=== PATIENT | female | born 1935 | race Caucasian/White ===

== ENCOUNTER 2020-10-12 21:31 | Inpatient (IN) | payer MEDICARE, OTHER, SELFPAY ==
[2020-10-12] VITALS (13 sets, daily range): BP systolic 113–153; BP diastolic 70–99; PULSE 77–148; RESP 13–24; TEMP 36.2; O2SAT 98
--- NOTE | ~2020-10-12 | XR_ITS ---
EXAMINATION: XR chest 2V DATE: 10/12/2020 22:05 INDICATION: Shortness of breath. TECHNIQUE: Frontal and lateral views of the chest were obtained. COMPARISON: None. FINDINGS: There are small pleural effusions. There are airspace opacities at the lung bases. No pneum othorax. Cardiomegaly is noted. There is an age-indeterminate compression fracture of L2. There is an old healed right rib fracture. IMPRESSION: 1. Small pleural effusions. 2. Airspace opacities at the lung bases, consistent with atelectasis or less likely pneumonia. 3. Cardiomegaly. Reviewed, dictated and finalized at location A. IMPRESSION: 1. Small pleural effusions. 2. Airspace opacities at the lung bases, consistent with atelectasis or less li eunice pneumonia. 3. Cardiomegaly.
--- NOTE | 2020-10-12 21:33 | ECG_ITS ---
Measurements Intervals [place] Rate: 135 P: MN: 0 QRS: -39 QRSD: 93 T: 152 QT: 308 QTc: 462 Interpretive Statements ATRIAL FIBRILLATION WITH RAPID VENTRICULAR RESPONSE LEFT AXIS DEVIATION DELAYED PRECORDIAL R/S TRANSITION MINIMAL Q WAVES- HIGH LATERAL LEADS BORDERLINE ST-T WAVE ABNORMALITY- HIGH LATERAL LEADS ABNORMAL ECG Electronically Signed On 10-13-2020 6:21:36 CDT by Jah Delacruz D.O.
[2020-10-12 21:53] LABS: Basophils Percent Auto 0.4 % (0.2-1.2); Eosinophils Absolute Auto 0.1 K/mm3 (0-0.3); Hematocrit 39.8 % (37.0-47.0); Hemoglobin 12.6 g/dL (12.0-15.0); Immature Granulocyte Absolute 0.03 K/mm3 (0.00-0.031); Immature Granulocyte Percent A 0.6 % (0-0.5); Immature Platelet Fraction Pct 10.7 % (0.9-11.2); Lymphocytes Absolute Auto 1.14 K/mm3 (0.9-3.2); Lymphocytes Percent Auto 21.2 % (18.3-44.2); Mean Corpuscular HGB Conc 31.7 g/dl (32-36); Mean Corpuscular Hemoglobin 29.3 pg (26-34); Mean Corpuscular Volume 92.6 fl (80-100); Mean Platelet Volume 13.6 fl (7.4-10.4); Monocytes Absolute Auto 0.5 K/mm3 (0.1-0.6); Monocytes Percent Auto 8.3 % (2.6-8.5); Neutrophils Absolute Auto 3.6 K/mm3 (1.3-6.7); Neutrophils Percent Auto 67.5 % (45.5-73.1); Platelet Count Result 101 k/mm3 (150-375); Red Cell Distribution Width 15.9 % (11.5-14.5); White Blood Count 5.4 K/mm3 (4.5-10.0)
[2020-10-12 22:01] LABS: Anion Gap 9 mmol/L (8-16); Blood Urea Nitrogen 24 mg/dL (7-17); Calcium 9.1 mg/dL (8.4-10.2); Carbon Dioxide 20 mmol/L (22-30); Chloride 110 mmol/L (98-107); Estimated CRCL calculation 33 ml/min; Estimated Glomerular Filt Rate 60; Glucose 86 mg/dL (65-105); Potassium 4.5 mmol/L (3.4-5.0); Sodium 139 mmol/L (137-145)
[2020-10-12 22:10] LABS: NT Pro B Type Natriuretic Pept 7360 pg/mL (5-100)
[2020-10-12] MEDS: dilTIAZem HCl INJ 25 MG/5 ML VIAL 10 MG IV PUSH (22:18)
[2020-10-12] MEDS: FUROSEMIDE INJ 40 MG/4 ML VIAL IV PUSH (22:40)
--- NOTE | 2020-10-12 22:47 | ED.GENADULT ---
HPI - General Adult General Chief complaint: Shortness of Breath/Dyspnea Stated complaint: sob, leg swelling, edema in feet x couple months Time Seen by Provider: 10/12/20 21:57 Source: patient and family Mode of arrival: wheelchair Limitations: no limitations History of Present Illness HPI narrative: 85-year-old with a history of hypothyroidism, bilateral leg pain more so on the right here with a complaint of not feeling well for past 2 months. Patient states that she did not want to bother her family however her daughter was doing her hair this evening noticed to have some difficulty in breathing and leg swelling. Patient states that her past few weeks she has been short of breath unable to lay down flat. She denied any chest pain. No history of fever or chills. She states that she is scheduled to see Dr. Tan in October. Onset (ago): month(s) (2) Related Data Allergies Allergy/AdvReac Type Severity Reaction Status Date / Time No Known Allergies Allergy Verified 10/12/20 22:14 Review of Systems Review of Systems: All systems reviewed & are unremarkable except as noted in HPI and below Constitutional: Constitutional: Reports no additional constitutional complaints Eyes: Eyes: Reports no additional eye complaints ENT: Reports system reviewed and no additional complaints, except as documented Cardiovascular: Cardiovascular: Reports as per HPI Respiratory: Respiratory: Reports as per HPI Gastrointestinal: Gastrointestinal: Reports no additional gastrointestinal complaints Musculoskeletal: Musculoskeletal: Reports no additional musculoskeletal complaints Integumentary/Breasts: Skin/Breast: Reports system reviewed and no additional complaints, except as docu Neurologic: Reports system reviewed and no additional complaints, except as documented Psychiatric: Psychiatric: Reports no additional psychiatric complaints Exam Narrative: Exam Narrative: GENERAL: Well-appearing,thin , and in no acute distress. HEAD: Normocephalic, atraumatic. EYES: PERRLA and EOMI. NECK: Supple. CHEST: Normal respiratory effort, basilar Rales HEART: Irregularly irregular and tachycardic. ABDOMEN: Soft, nontender, nondistended, normal active bowel sounds. EXTREMITIES: Normal range of motion. 2+ edema bilaterally. SKIN: Warm, dry, no rash. NEURO: No focal deficits. Alert and oriented x3. PSYCH: Normal mood and affect. Course Course Emergency Course: Patient upon arrival was in A. fib with RVR have given 10 of Cardizem which brought her heart rate from 140s to 80s and 90s, she bounced back to 10 7-1 15 I started her on a drip I also have given 40 of IV Lasix. Discussed labs with the patient and the family. Also discussed with the hospitalist who agreed. The patient. Vital Signs Vital signs: Vital Signs Temperature 36.2 C L 10/12/20 21:35 Pulse Rate 148 H 10/12/20 21:35 Respiratory Rate 16 10/12/20 21:35 Blood Pressure 153/99 H 10/12/20 21:35 Pulse Oximetry 98 10/12/20 21:35 Temperature 36.2 C L 10/12/20 21:35 Pulse Rate 84 10/12/20 22:36 Respiratory Rate 13 10/12/20 22:15 Blood Pressure 114/70 10/12/20 22:36 Pulse Oximetry 98 10/12/20 21:35 Medical Decision Making Vital Signs Vital Signs: Vital Signs Temperature 36.2 C L 10/12/20 21:35 Pulse Rate 148 H 10/12/20 21:35 Respiratory Rate 16 10/12/20 21:35 Blood Pressure 153/99 H 10/12/20 21:35 Pulse Oximetry 98 10/12/20 21:35 Temperature 36.2 C L 10/12/20 21:35 Pulse Rate 84 10/12/20 22:36 Respiratory Rate 13 10/12/20 22:15 Blood Pressure 114/70 10/12/20 22:36 Pulse Oximetry 98 10/12/20 21:35 Lab Data Result diagrams: 10/12/20 21:44 10/12/20 21:44 Labs: Lab Results 10/12/20 10/12/20 10/12/20 Range/Units 21:44 21:44 21:44 WBC 5.4 (4.5-10.0) K/mm3 RBC 4.30 (4.2-5.4) M/mm3 Hgb 12.6 (12.0-15.0) g/dL Hct 39.8 (37.0-47.0) % MCV 92.6 (80-100) fl MCH 29
[2020-10-13] VITALS (18 sets, daily range): BP systolic 90–145; BP diastolic 57–90; PULSE 54–132; RESP 12–24; TEMP 35.8–36.9; O2SAT 94–100; BMI 18.8
--- NOTE | 2020-10-13 | ECHO_ITS ---
Patient Info Name: Renata Brown Age: 85 years : 1935 Gender: Female Ht: 65 in Wt: 114 lbs BSA: 1.53 m2 HR: 87 bpm BP: 128 / 7 mmHg Heart Rhythm: Atrial Fibrillation Technical Quality: Good Exam Date: 10/13/2020 10:21 AM Exam Location: [facility] Room: [place] Patient Status: Inpatient Admit Date: 10/12/2020 Staff Ordering Physician: Jose Up MD Laser Beam Trim Operator: Charlotte Carias RDCS Attending Provider: Cedrick Farrell MD Exam Type: CA echo doppler color flow Study Info Indications - new afib chf Complete two-dimensional, color flow and Doppler transthoracic echocardiogram is performed. Summary 1. Complete two-dimensional, color flow and Doppler transthoracic echocardiogram is performed. 2. Left ventricular chamber dimension is moderately enlarged. 3. Left ventricular systolic function is severely reduced, estimated at 20-25%. 4. Marked biatrial dilation. 5. Mild mitral tricuspid and aortic valve regurgitation. 6. Atrial fibrillation. Left Ventricle Left ventricular chamber dimension is moderately enlarged. Left ventricular systolic function is severely reduced, estimated at 20-25%. The left ventricular diastolic function is indeterminate. Right Ventricle Right ventricular chamber dimension is mildly enlarged. Left Atria Left atrial chamber dimension is severely enlarged. Right Atria Right atrial chamber dimension is moderately enlarged. Aortic Valve The aortic valve is trileaflet. There is mild aortic valve sclerosis. There is trace aortic valve regurgitation. Pulmonic Valve The pulmonic valve is not well visualized. Mitral Valve The mitral valve has normal leaflets. There is mild mitral valve regurgitation. Tricuspid Valve The tricuspid valve leaflets are normal. There is mild tricuspid valve regurgitation. Pericardium/Pleural The pericardium appears normal. Aorta The aortic root size at the sinus of Valsalva is normal. Left Ventricular Outflow Tract Name Value Normal LVOT 2D LVOT Diameter 2.0 cm LVOT Doppler LVOT Peak Gradient 3 mmHg LVOT Mean Gradient 2 mmHg LVOT VTI 14 cm LVOT VTI/AV VTI Ratio 0.6 LVOT Stroke Volume 44 ml LVOT CO 11.5 l/min LVOT CI 7.5 l/min/m2 Pulmonic Valve Name Value Normal PV Doppler PV Peak Gradient 1 mmHg Mitral Valve Name Value Normal MV Doppler MV Decel [place]
[2020-10-13 00:01] LABS: Troponin I < 0.012 ng/mL (0.000-0.034)
[2020-10-13 00:26] LABS: Thyroid Stimulating Hormone Reflex 0.069 uIU/mL (0.465-4.68)
--- NOTE | 2020-10-13 00:46 | ADMGEN ---
This patient, Renata Brown, was admitted to IMU Room 205-01. Patient/family oriented to hospital policies and general routines including ID bracelet, bed and alarms, visiting hours, pain management, procedures, bathroom and other care routines, personal items, smoking policy, room service/diet, and visiting hours. Information on how to activate the Rapid Response Team has been discussed. Patient/Family are encouraged to report perceived risks to care and to ask questions if they do not understand what they are told or what they should do.
[2020-10-13 00:54] LABS: Free T4 Free Thyroxine Reflex 1.73 ng/dL (0.78-2.19)
[2020-10-13] MEDS: ENOXAPARIN 60 MG/0.6 ML SYRINGE 50 MG SUB-Q (00:57)
[2020-10-13 01:45] LABS: Total Triiodothyronine (T3) 0.97 NG/ML (0.97-1.69)
[2020-10-13] MEDS: ACETAMINOPHEN 325 MG TABLET 650 MG PO ×2 (02:28→08:10)
--- NOTE | 2020-10-13 02:42 | PM.IMHP ---
H&P: HPI History of Present Illness Date/Time: 10/13/20 02:42 Chief Complaint: Shortness of breath Narrative: This is an 85-year-old female with past medical history significant for hypothyroidism, dyslipidemia. Patient was brought to the emergency room due to concerns of her daughter after she noticed that her mother has bilateral lower extremity edema and shortness of breath while she was visiting with her. Patient states that she has not been feeling well for the last 2 months or so she has been having palpitation, shortness of breath, chest pain in the retrosternal area feels like a weight on my chest type of feeling, she noticed worsening of shortness of breath with activity but now also present at rest could not lay flat in the bed and has been sleeping in her 's recliner for the last several days. She has have some dry cough nonproductive of sputum is states that it feels chest congestion, no dizziness no lightheadedness no fevers no rigors no chills no nausea no vomiting no abdominal pain no diarrhea no claudication. Preliminary workup was significant for abnormal heart rate AFib with RVR and an elevated BNP. Chest x-ray significant for bilateral pleural effusion. Patient was given IV push diltiazem in the emergency room which brought her heart rate down and was given Lasix which improved her shortness of breath patient has been admitted to the telemetry unit. Review of Systems Review of Systems: Narrative: Palpitations shortness worsening shortness of breath and bilateral lower extremity edema Constitutional: Constitutional: Denies chills, Reports fatigue, Denies fever(s), Reports lethargy and Denies weakness Eyes: Eyes: Denies change in vision ENT: Denies nasal congestion, Denies nasal discharge and Denies nasal obstruction Cardiovascular: Cardiovascular: Reports chest pain, Reports chest pain at rest, Reports rapid heart rate, Reports pedal edema, Reports leg edema, Denies radiating jaw, neck or arm pain, Reports palpitations, Reports dyspnea, Reports dyspnea on exertion and Reports orthopnea Respiratory: Respiratory: Reports cough and Denies wheezing Gastrointestinal: Gastrointestinal: Denies change in bowel habits, Denies dysphagia, Denies dyspepsia, Denies diarrhea, Denies nausea and Denies vomiting Genitourinary: Genitourinary: Denies dysuria Musculoskeletal: Musculoskeletal: Denies limited range of motion, Denies muscle cramps and Denies muscle weakness Integumentary/Breasts: Skin/Breast: Denies rash Neurologic: Denies focal weakness, Denies Sensory deficit (Neuro) and Denies weakness Psychiatric: Psychiatric: Reports no additional psychiatric complaints Endocrine: Endocrine: Reports no additional endocrine complaints Hematologic/Lymphatic: Hematologic/Lymphatic: Reports no additional hematologic/lymphatic complaints Allergic/Immunologic: Allergic/Immunologic: Reports no additional allergic/immunologic complaints PMFSH Social History Social History Smoking status: Never smoker Alcohol intake: never Substance use: never Substance use type: does not use Spiritual care concerns: No Meds Home Medications and Allergies Home Medications Medication Instructions Recorded Confirmed Type levothyroxine 75 mcg PO DAILY 10/13/20 10/13/20 History simvastatin 20 mg PO DAILY 10/13/20 10/13/20 History trazodone 50 mg PO QPM PRN 10/13/20 10/13/20 History Allergies Allergy/AdvReac Type Severity Reaction Status Date / Time No Known Allergies Allergy Verified 10/12/20 22:14 Vital Signs Vital Signs - 24 hr 10/12/20 21:35 10/12/20 21:45 10/12/20 22:12 Temperature 97.2 F L Pulse Rate 148 H 144 H 125 H Respiratory Rate 16 24 H Blood Pressure 153/99 H Pulse Oximetry 98 10/12/20 22:15 10/12/20 22:25 10/12/20 22:30 Temperature Pulse Rate 143 H 95 82 Respiratory Rate 13 18 Blood Pressure Pulse Oximetry 10/12
[2020-10-13 03:32] LABS: Troponin I < 0.012 ng/mL (0.000-0.034)
[2020-10-13 05:28] LABS: Anion Gap 11 mmol/L (8-16); Blood Urea Nitrogen 22 mg/dL (7-17); Carbon Dioxide 26 mmol/L (22-30); Chloride 105 mmol/L (98-107); Estimated CRCL calculation 33 ml/min; Estimated Glomerular Filt Rate 60; Glucose 87 mg/dL (65-105); Potassium 4.2 mmol/L (3.4-5.0); Sodium 142 mmol/L (137-145)
[2020-10-13 05:38] LABS: Troponin I < 0.012 ng/mL (0.000-0.034)
[2020-10-13] MEDS: LEVOTHYROXINE SODIUM 75 MCG TABLET PO (05:49)
[2020-10-13 06:03] LABS: Add Urine Microscopic? YES; Appearance Urine Clear (Clear); Bilirubin Urine Negative (Negative); Blood Urine 1+ (Negative); Color Urine Colorless (Yellow); Glucose Urine UA Negative (Negative); Ketones Urine Negative (Negative); Leukocyte Esterase Ur Negative LEU/UL (Negative); Mucus Urine Rare /lpf; Nitrate Urine Negative (Negative); Protein Urine Negative (Negative); RBC Urine 0-2 /hpf (0-2); Specific Grav Ur 1.006 (1.001-1.035); Urobilinogen Urine Negative mg/dL (<2.0); WBC Urine 0-3 /hpf
[2020-10-13] MEDS: FUROSEMIDE INJ 40 MG/4 ML VIAL IV PUSH (08:09)
--- NOTE | 2020-10-13 09:28 | PM.CNCAR ---
Assessment and Plan Additional Plan 1-AFib with RVR, and new onset 2-acute heart failure exacerbation, unspecified 3-history of hypothyroidism however appears to be overtreated 4-hyperlipidemia -patient presents with bilateral lower extremity edema and was found to be in AFib with RVR. Currently receiving diltiazem 5 mg IV. -recommend to start metoprolol 25 mg q.6 hours and stop the IV diltiazem. -discontinue Lovenox and start Eliquis 2.5 mg b.i.d. -follow-up on echocardiogram. -discontinue IV Lasix because she is having severe cramps in her lower extremities and start Bumex 1 mg IV b.i.d. -hold the levothyroxine for now because TSH is low and suggestive that the 75 mcg of levothyroxine may be is excessive for this patient. History of Present Illness History of Present Illness Consult date/time: 10/13/20 09:28 Requesting physician: Jose Up MD Consult reason: atrial fibrillation Reason For Visit: New onset, A. fib with RVR, CHF Narrative: This is a 85-year-old female with past medical history of hyperlipidemia, hypothyroidism who presents to the hospital chiefly complaining of bilateral lower extremity edema for a couple weeks. Denies chest pain. She states that she has some dyspnea on exertion. Denies dizziness or syncope. She states that she has long history of unsteady gait. Denies fever or chills or cough. Does not smoke. Drinks on rare occasion. Serum creatinine 0.9, BUN 24, brain atretic peptide 3800, TSH low at 0.06, hemoglobin 12, normal white cell count. Chest x-ray revealed analyzed herself shows small pleural effusions, possible right infiltrate. EKG reviewed and analyzed by myself shows AFib with RVR, left axis deviation. Review of Systems Constitutional: Constitutional: Denies chills, Denies fever(s) and Denies poor appetite Eyes: Eyes: Denies eye discharge, Denies loss of vision, Denies eye pain and Denies photophobia ENT: Denies dizziness, Denies epistaxis, Denies nasal congestion and Denies sore throat Cardiovascular: Cardiovascular: Denies chest pain, Denies syncope, Reports pedal edema, Reports leg edema, Denies palpitations, Denies dyspnea, Reports dyspnea on exertion and Denies orthopnea Respiratory: Respiratory: Denies cough, Denies dyspnea, Denies dyspnea on exertion and Denies wheezing Gastrointestinal: Gastrointestinal: Denies abdominal pain, Denies diarrhea, Denies nausea and Denies vomiting Genitourinary: Genitourinary: Denies hematuria, Denies genital lesions and Denies dysuria Musculoskeletal: Musculoskeletal: Denies arthralgias, Denies joint swelling and Denies numbness Integumentary/Breasts: Skin/Breast: Denies pruritus and Denies rash Neurologic: Denies dizziness, Denies syncope, Denies loss of vision and Denies numbness Psychiatric: Psychiatric: Denies anxiety and Denies depression Endocrine: Endocrine: Denies cold intolerance, Denies heat intolerance and Denies palpitations Hematologic/Lymphatic: Hematologic/Lymphatic: Denies easy bleeding and Denies easy bruising Allergic/Immunologic: Allergic/Immunologic: Denies urticaria and Denies wheezing PMFSH Past Medical History Medical History (Updated 10/13/20 @ 09:41 by Jeannine Gutierrez MD) Hyperlipidemia Hypothyroidism Surgical History Surgical History (Updated 10/13/20 @ 09:42 by Jeannine Gutierrez MD) H/O hysterectomy for benign disease Social History Social History Smoking status: Never smoker Alcohol intake: never Substance use: never Substance use type: does not use Spiritual care concerns: No Meds Home Medications and Allergies Home Medications Medication Instructions Recorded Confirmed Type levothyroxine 75 mcg PO DAILY 10/13/20 10/13/20 History simvastatin 20 mg PO DAILY 10/13/20 10/13/20 History trazodone 50 mg PO QPM PRN 10/13/20 10/13/20 History Allergies Allergy/AdvReac Type Severity Reaction Status Date / Time No Known Aller
[2020-10-13] MEDS: METOPROLOL TARTRATE 25 MG TABLET PO ×2 (11:58→17:03)
--- NOTE | 2020-10-13 15:05 | PM.IMPN ---
Progress Note: A&P Assessment and Plan (1) Atrial fibrillation with rapid ventricular response: Code(s): I48.91 - Unspecified atrial fibrillation Status: Acute Assessment and Plan: Admit to telemetry unit Diltiazem drip Echocardiogram in a.m. Serial troponins Cardiology consult Chest x-ray reviewed Lab work reviewed Urinalysis pending 10/13/20 15:05 Patient is 85-year-old female was brought to the emergency department by her daughter is patient was short of breath and lower extremity edema upon arrival to emergency depart patient was in atrial fibrillation with RVR diltiazem drip was started in the rate is trending down, patient is seen by Cardiology DC the drip started the patient on metoprolol 25 mg every 6 hours will continue to monitor, ordered a coagulation patient started on Eliquis 2.5 mg b.i.d., patient with history of hypothyroid patient TSH is low suggesting over treatment however a free T4 and total T3 are normal. Patient also has congestive heart failure with BNP of 7360, patient was started on IV Lasix however developed severe crampy and not been stopped will follow-up on cardiac echo, will have a PT OT evaluate the patient, patient daughter is present in the room answered all her questions. (2) Acute congestive heart failure: Code(s): I50.9 - Heart failure, unspecified Status: Acute Assessment and Plan: Likely secondary to uncontrolled heart rate Strict I/O's Daily weight Lasix 40 mg IV b.i.d. Daily BMP Supportive care Heart healthy diet (3) Hypertension: Code(s): I10 - Essential (primary) hypertension Status: Acute Assessment and Plan: Continue home meds Continue to monitor Subjective Date/time seen: 10/13/20 15:05 Patient is 85-year-old female was brought to the emergency department by her daughter is patient was short of breath and lower extremity edema upon arrival to emergency depart patient was in atrial fibrillation with RVR diltiazem drip was started in the rate is trending down, patient is seen by Cardiology DC the drip started the patient on metoprolol 25 mg every 6 hours will continue to monitor, ordered a coagulation patient started on Eliquis 2.5 mg b.i.d., patient with history of hypothyroid patient TSH is low suggesting over treatment however a free T4 and total T3 are normal. Patient also has congestive heart failure with BNP of 7360, patient was started on IV Lasix however developed severe crampy and not been stopped will follow-up on cardiac echo, will have a PT OT evaluate the patient, patient daughter is present in the room answered all her questions. Review of Systems Review of Systems: All systems reviewed & are unremarkable except as noted in HPI and below Exam Narrative: Exam Narrative: Elderly frail Patient is comfortable, NAD HEENT: eyes are clear and none icteric LUNGS: Bilateral fair air entry with rales and rhonchi HEART: Irregularly irregular ABD: BS+, Soft and nontender Lower extremities: no edema SKIN: nonjaundiced Neuro: grossly intact. Objective Data Vital Signs Vital Signs: Vital Signs - 24 hr 10/12/20 21:35 10/12/20 21:45 10/12/20 22:12 Temperature 97.2 F L Pulse Rate 148 H 144 H 125 H Respiratory Rate 16 24 H Blood Pressure 153/99 H Pulse Oximetry 98 10/12/20 22:15 10/12/20 22:25 10/12/20 22:30 Temperature Pulse Rate 143 H 95 82 Respiratory Rate 13 18 Blood Pressure Pulse Oximetry 10/12/20 22:31 10/12/20 22:36 10/12/20 22:45 Temperature Pulse Rate 77 84 81 Respiratory Rate 21 H 14 Blood Pressure 114/70 114/70 Pulse Oximetry 10/12/20 22:46 10/12/20 23:00 10/12/20 23:02 Temperature Pulse Rate 82 92 87 Respiratory Rate 22 H 21 H 16 Blood Pressure 113/86 136/89 Pulse Oximetry 10/12/20 23:36 10/13/20 00:37 10/13/20 01:58 Temperature 97.0 F L Pulse Rate 95 99 99 Respiratory Rate 21 H 18 Blood Pressure 121/90 Pulse Oximetry 97 06/2
[2020-10-13] MEDS: BUMETANIDE INJ 1 MG/4 ML VIAL IV PUSH (17:06)
--- NOTE | 2020-10-13 20:51 | PC.NURSE ---
2044 reported a pain over the right lower extremity, quickly resolved and denies need for intervention at this time.
[2020-10-13] MEDS: traZODone HCL 50 MG TABLET PO (22:03)
[2020-10-13] MEDS: APIXABAN 2.5 MG TABLET PO (22:03)
[2020-10-14] VITALS (15 sets, daily range): BP systolic 94–119; BP diastolic 63–82; PULSE 66–122; RESP 12–18; TEMP 36.1–36.6; O2SAT 94–96
[2020-10-14] MEDS: METOPROLOL TARTRATE 25 MG TABLET PO ×2 (00:24→06:38)
[2020-10-14 05:29] LABS: Hemoglobin 11.9 g/dL (12.0-15.0); Immature Platelet Fraction Pct 11.9 % (0.9-11.2); Mean Corpuscular HGB Conc 31.3 g/dl (32-36); Mean Corpuscular Hemoglobin 28.5 pg (26-34); Mean Corpuscular Volume 90.9 fl (80-100); Mean Platelet Volume 13.7 fl (7.4-10.4); Platelet Count Result 90 k/mm3 (150-375); Red Blood Count 4.18 M/mm3 (4.2-5.4); Red Cell Distribution Width 15.8 % (11.5-14.5); White Blood Count 4.3 K/mm3 (4.5-10.0)
[2020-10-14 05:35] LABS: Anion Gap 8 mmol/L (8-16); Blood Urea Nitrogen 21 mg/dL (7-17); Calcium 8.1 mg/dL (8.4-10.2); Carbon Dioxide 24 mmol/L (22-30); Chloride 105 mmol/L (98-107); Estimated CRCL calculation 33 ml/min; Estimated Glomerular Filt Rate 60; Glucose 83 mg/dL (65-105); Potassium 3.1 mmol/L (3.4-5.0); Sodium 137 mmol/L (137-145)
[2020-10-14] MEDS: SIMVASTATIN 20 MG TABLET PO (09:58)
[2020-10-14] MEDS: APIXABAN 2.5 MG TABLET PO ×2 (09:58→19:57)
[2020-10-14] MEDS: BUMETANIDE INJ 1 MG/4 ML VIAL IV PUSH (09:58)
--- NOTE | 2020-10-14 12:47 | PM.PNCARD ---
Progress Note: A&P Additional Plan 85-year-old lady with: AFib with RVR suspect probably related to hyperthyroidism. She has responded well with good rate control with metoprolol. Will transition her to an equivalent dose of metoprolol succinate starting this afternoon. I will discontinue her Bumex she is euvolemic and this regimen will undoubtedly result in volume depletion. Will review her echocardiogram results later I do not see those on the record as of the time of this dictation. If he is doing well hemodynamically stable with good rate control discharged tomorrow is probably reasonable. Homar Greenwood MD [facility] Subjective Date/time seen: Date of service: 10/14/20 12:47 Interval history: Follow-up visit in this 85-year-old lady with: Atrial fibrillation of uncertain chronicity/duration. Presents to the hospital with RVR and has responded very well to metoprolol which she is receiving 25 mg q.6 hours. She is also now anticoagulated with apixaban. Etiology of the atrial fib is uncertain but suspected related to hyperthyroidism. TSH level upon admission suggests over replacement. Patient is asymptomatic and today feels well and has no complaints currently. Exam Const: General: comfortable and no acute distress Other: Pleasant thin elderly lady no distress HENMT: Mouth: Yes moist mucous membranes Eyes: Sclera: sclerae normal Pupils: Equal, round and reactive pupils present Neck: Neck: supple and no JVD Thyroid: thyroid normal Resp: Effort & Inspection: normal respiratory effort Auscultation: clear to auscultation bilaterally Cardio: Rhythm: abnormal rhythm irregularly irregular GI: GI Palp: Yes Soft to palpation Auscultation: normal bowel sounds Skin: General skin exam: normal color Neuro: Cognition (Neuro): normal cognition Extrem: General: normal to inspection Other: Normal perfusion no peripheral edema Objective Data Vital Signs Vital Signs: Vital Signs - 24 hr 10/13/20 13:16 10/13/20 13:57 10/13/20 16:00 Temperature 36.9 C Pulse Rate 99 68 64 Respiratory Rate 12 Blood Pressure 109/63 Pulse Oximetry 94 10/13/20 17:03 10/13/20 18:00 10/13/20 19:54 Temperature 36.4 C Pulse Rate 95 118 H 109 H Respiratory Rate 16 Blood Pressure 109/72 Pulse Oximetry 100 10/13/20 20:00 10/13/20 22:00 10/13/20 23:51 Temperature 35.8 C L Pulse Rate 92 67 67 Respiratory Rate 16 Blood Pressure 90/57 L Pulse Oximetry 99 10/14/20 00:00 10/14/20 00:24 10/14/20 02:00 Temperature Pulse Rate 71 74 66 Respiratory Rate Blood Pressure Pulse Oximetry 10/14/20 04:00 10/14/20 06:00 10/14/20 06:38 Temperature 36.1 C L Pulse Rate 72 120 H 80 Respiratory Rate 16 Blood Pressure 119/73 Pulse Oximetry 96 10/14/20 08:00 10/14/20 12:00 Temperature 36.6 C 36.6 C Pulse Rate 112 H 118 H Respiratory Rate 12 12 Blood Pressure 115/73 104/82 Pulse Oximetry 96 95 Intake/Output Intake/Output: Intake & Output 10/11/20 10/12/20 10/13/20 10/14/20 23:59 23:59 23:59 23:59 Intake Total 865 590 Output Total 3350 700 Balance -2485 -110 Meds/Results Medications: Active Medications Generic Name Dose Route Start Last Admin Trade Name Freq PRN Reason Stop Dose Admin Acetaminophen 650 mg 10/12/20 22:44 10/13/20 08:10 Acetaminophen 325 Mg Tablet PO 650 mg Q4H PRN Administration Mild Pain (1-3) or Fever Apixaban 2.5 mg 10/13/20 22:00 10/14/20 09:58 Apixaban 2.5 Mg Tablet PO 2.5 mg Q12HR SHARITA Administration Levothyroxine Sodium 75 mcg 10/13/20 06:30 10/13/20 05:49 Levothyroxine Sodium 75 Mcg Tablet PO 75 mcg DAILY@0630 SHARITA Administration Metoprolol Succinate 100 mg 10/14/20 15:00 Metoprolol Succinate Ext Rel 100 Mg Tabcr PO QAM [facility] Ondansetron HCl 4 mg 10/12/20 22:44 Ondansetron Inj 4 Mg/2 Ml Vial IV PUSH Q4H PRN Nausea Simvastatin 20 mg 10/13/20 09:00 10/14/20 09:58
[2020-10-14] MEDS: POTASSIUM CHLORIDE 20 MEQ TABLET 40 MEQ PO (12:58)
--- NOTE | 2020-10-14 15:16 | PM.IMPN ---
Progress Note: A&P Assessment and Plan (1) Atrial fibrillation with rapid ventricular response: Code(s): I48.91 - Unspecified atrial fibrillation Status: Acute Assessment and Plan: Admit to telemetry unit Diltiazem drip Echocardiogram in a.m. Serial troponins Cardiology consult Chest x-ray reviewed Lab work reviewed Urinalysis pending 10/14/20 15:16 10/13 Patient is 85-year-old female was brought to the emergency department by her daughter is patient was short of breath and lower extremity edema upon arrival to emergency depart patient was in atrial fibrillation with RVR diltiazem drip was started in the rate is trending down, patient is seen by Cardiology DC the drip started the patient on metoprolol 25 mg every 6 hours will continue to monitor, ordered a coagulation patient started on Eliquis 2.5 mg b.i.d., patient with history of hypothyroid patient TSH is low suggesting over treatment however a free T4 and total T3 are normal. Patient also has congestive heart failure with BNP of 7360, patient was started on IV Lasix however developed severe crampy and not been stopped will follow-up on cardiac echo, will have a PT OT evaluate the patient, patient daughter is present in the room answered all her questions. 10/14 patient with atrial fibrillation with RVR, patient seen by Cardiology suspect with RVR resulting over treatment of hypothyroid as patient did respond well to metoprolol, patient rate is trending down, tomorrow clinical staff anesthesiologist will switch over to long-acting metoprolol succinate, also stopped Bumex as patient is now euvolemic, Patient has no complaint of chest pain shortness of breath palpitation, patient's son is present in the room, if remains clinically stable plan is to discharge the patient on long-acting metoprolol. (2) Acute congestive heart failure: Code(s): I50.9 - Heart failure, unspecified Status: Acute Assessment and Plan: Likely secondary to uncontrolled heart rate Strict I/O's Daily weight Lasix 40 mg IV b.i.d. Daily BMP Supportive care Heart healthy diet (3) Hypertension: Code(s): I10 - Essential (primary) hypertension Status: Acute Assessment and Plan: Continue home meds Continue to monitor Subjective Date/time seen: 10/14/20 15:16 10/13 Patient is 85-year-old female was brought to the emergency department by her daughter is patient was short of breath and lower extremity edema upon arrival to emergency depart patient was in atrial fibrillation with RVR diltiazem drip was started in the rate is trending down, patient is seen by Cardiology DC the drip started the patient on metoprolol 25 mg every 6 hours will continue to monitor, ordered a coagulation patient started on Eliquis 2.5 mg b.i.d., patient with history of hypothyroid patient TSH is low suggesting over treatment however a free T4 and total T3 are normal. Patient also has congestive heart failure with BNP of 7360, patient was started on IV Lasix however developed severe crampy and not been stopped will follow-up on cardiac echo, will have a PT OT evaluate the patient, patient daughter is present in the room answered all her questions. 10/14 patient with atrial fibrillation with RVR, patient seen by Cardiology suspect with RVR resulting over treatment of hypothyroid as patient did respond well to metoprolol, patient rate is trending down, tomorrow clinical staff anesthesiologist will switch over to long-acting metoprolol succinate, also stopped Bumex as patient is now euvolemic, Patient has no complaint of chest pain shortness of breath palpitation, patient's son is present in the room, if remains clinically stable plan is to discharge the patient on long-acting metoprolol. Review of Systems Review of Systems: All systems reviewed & are unremarkable except as noted in HPI and below Exam Narrative: Exam Narrative: Elderly frail Patient is comfortable, NAD HEENT: eyes are clear and none icteric LUNGS: Bilateral
[2020-10-14] MEDS: METOPROLOL SUCCINATE EXT REL 100 MG TABCR PO (16:52)
[2020-10-15] VITALS (11 sets, daily range): BP systolic 94–122; BP diastolic 52–87; PULSE 76–135; RESP 12–16; TEMP 36–36.6; O2SAT 92–96
[2020-10-15 05:44] LABS: Hemoglobin 13.2 g/dL (12.0-15.0); Immature Platelet Fraction Pct 12.9 % (0.9-11.2); Mean Corpuscular HGB Conc 31.4 g/dl (32-36); Mean Corpuscular Hemoglobin 28.7 pg (26-34); Mean Corpuscular Volume 91.3 fl (80-100); Mean Platelet Volume 13.9 fl (7.4-10.4); Platelet Count Result 102 k/mm3 (150-375); Red Cell Distribution Width 15.7 % (11.5-14.5); White Blood Count 4.3 K/mm3 (4.5-10.0)
[2020-10-15] MEDS: ACETAMINOPHEN 325 MG TABLET 650 MG PO (05:54)
[2020-10-15 06:04] LABS: Anion Gap 7 mmol/L (8-16); Blood Urea Nitrogen 22 mg/dL (7-17); Calcium 8.3 mg/dL (8.4-10.2); Carbon Dioxide 23 mmol/L (22-30); Chloride 106 mmol/L (98-107); Estimated CRCL calculation 36 ml/min; Estimated Glomerular Filt Rate > 60; Glucose 89 mg/dL (65-105); Magnesium 2.3 mg/dL (1.6-2.3); Potassium 3.8 mmol/L (3.4-5.0); Sodium 136 mmol/L (137-145)
[2020-10-15] MEDS: APIXABAN 2.5 MG TABLET PO ×2 (08:10→20:11)
[2020-10-15] MEDS: METOPROLOL SUCCINATE EXT REL 100 MG TABCR PO (08:10)
[2020-10-15] MEDS: SIMVASTATIN 20 MG TABLET PO (08:10)
[2020-10-15] MEDS: LOPERAMIDE HCL 2 MG CAPSULE PO (10:40)
--- NOTE | 2020-10-15 13:52 | PM.IMPN ---
Progress Note: A&P Assessment and Plan (1) Atrial fibrillation with rapid ventricular response: Code(s): I48.91 - Unspecified atrial fibrillation Status: Acute Assessment and Plan: Admit to telemetry unit Diltiazem drip Echocardiogram in a.m. Serial troponins Cardiology consult Chest x-ray reviewed Lab work reviewed Urinalysis pending 10/15/20 13:52 10/13 Patient is 85-year-old female was brought to the emergency department by her daughter is patient was short of breath and lower extremity edema upon arrival to emergency depart patient was in atrial fibrillation with RVR diltiazem drip was started in the rate is trending down, patient is seen by Cardiology DC the drip started the patient on metoprolol 25 mg every 6 hours will continue to monitor, ordered a coagulation patient started on Eliquis 2.5 mg b.i.d., patient with history of hypothyroid patient TSH is low suggesting over treatment however a free T4 and total T3 are normal. Patient also has congestive heart failure with BNP of 7360, patient was started on IV Lasix however developed severe crampy and not been stopped will follow-up on cardiac echo, will have a PT OT evaluate the patient, patient daughter is present in the room answered all her questions. 10/14 patient with atrial fibrillation with RVR, patient seen by Cardiology suspect with RVR resulting over treatment of hypothyroid as patient did respond well to metoprolol, patient rate is trending down, tomorrow senior radiation protection technician will switch over to long-acting metoprolol succinate, also stopped Bumex as patient is now euvolemic, Patient has no complaint of chest pain shortness of breath palpitation, patient's son is present in the room, if remains clinically stable plan is to discharge the patient on long-acting metoprolol. 10/15 patient's rate is controlled with metoprolol succinate and patient does not have any complaint of chest pain shortness of breath palpitation, patient cardiac echo showed ejection fraction of 20-25% patient will be seen by Cardiology further recommendation to follow, patient will need LifeVest for discharging home, will continue to monitor and follow-up (2) Acute congestive heart failure: Code(s): I50.9 - Heart failure, unspecified Status: Acute Assessment and Plan: Likely secondary to uncontrolled heart rate Strict I/O's Daily weight Lasix 40 mg IV b.i.d. Daily BMP Supportive care Heart healthy diet (3) Hypertension: Code(s): I10 - Essential (primary) hypertension Status: Acute Assessment and Plan: Continue home meds Continue to monitor Subjective Date/time seen: 10/15/20 13:52 10/13 Patient is 85-year-old female was brought to the emergency department by her daughter is patient was short of breath and lower extremity edema upon arrival to emergency depart patient was in atrial fibrillation with RVR diltiazem drip was started in the rate is trending down, patient is seen by Cardiology DC the drip started the patient on metoprolol 25 mg every 6 hours will continue to monitor, ordered a coagulation patient started on Eliquis 2.5 mg b.i.d., patient with history of hypothyroid patient TSH is low suggesting over treatment however a free T4 and total T3 are normal. Patient also has congestive heart failure with BNP of 7360, patient was started on IV Lasix however developed severe crampy and not been stopped will follow-up on cardiac echo, will have a PT OT evaluate the patient, patient daughter is present in the room answered all her questions. 10/14 patient with atrial fibrillation with RVR, patient seen by Cardiology suspect with RVR resulting over treatment of hypothyroid as patient did respond well to metoprolol, patient rate is trending down, tomorrow senior radiation protection technician will switch over to long-acting metoprolol succinate, also stopped Bumex as patient is now euvolemic, Patient has no complaint of chest pain shortness of breath palpitation, patient's son is prese
[2020-10-15] MEDS: METOPROLOL SUCCINATE EXT REL 25 MG TABCR PO (15:23)
--- NOTE | 2020-10-15 16:07 | PM.PNCARD ---
Progress Note: A&P Assessment and Plan (1) Cardiomyopathy: Code(s): I42.9 - Cardiomyopathy, unspecified Status: Acute Assessment and Plan: new diagnosis severe LV dysfunction EF 20-25%. Etiology unknown, however, likely tachycardia induced cardiomyopathy. Acute heart failure with reduced ejection fraction, reasonably compensated at present. Heart rate control very important. Discussed further workup to exclude obstructive CAD, however, negative serial troponins argues against this although not definitive. Discussed coronary angiography, increase risk for sudden cardiac secondary to ventricular tachycardia and or ventricular fibrillation. There are not inclined to proceed with coronary angiography at this time. Furthermore, would need to hold anticoagulation for least 48 hours. Continue to optimize medical therapy balancing blood pressure renal function. (2) Atrial fibrillation with rapid ventricular response: Code(s): I48.91 - Unspecified atrial fibrillation Status: Acute Assessment and Plan: Better controlled although remains tachycardic. Increase cautiously to Toprol XL 125 mg daily. Increased further as BP allows. Discussed antiarrhythmic therapy and other options. Avoid amiodarone given thyroid disorder, unknown status of intracardiac thrombus which is of higher likely given patient's advanced age and severe LV dysfunction. Discussed if heart rate cannot be controlled given severe LV dysfunction CARLOS guided cardioversion may be required although decreased likelihood of success given hyperthyroid state. Continue Eliquis 2.5 mg twice daily. (3) Acute congestive heart failure: Code(s): I50.9 - Heart failure, unspecified Status: Acute Assessment and Plan: Better compensation with diuresis. (4) Hypertension: Code(s): I10 - Essential (primary) hypertension Status: Acute Assessment and Plan: Stable, relatively hypotensive at times. monitor closely. This may prohibit more aggressive rate control with beta-blockers. Discussed digoxin as alternative for rate control may be necessary if remains rapid. Reassess in a.m.. Subjective Date/time seen: Date of service: 10/15/20 16:07 Interval history: Follow-up visit in this 85-year-old lady with: Atrial fibrillation of uncertain chronicity/duration. Presents to the hospital with RVR and has responded very well to metoprolol which she is receiving 25 mg q.6 hours. She is also now anticoagulated with apixaban. Etiology of the atrial fib is uncertain but suspected related to hyperthyroidism. TSH level upon admission suggests over replacement. Patient is asymptomatic and today feels well and has no complaints currently. Patient feels well. Ambulating without difficulty. Denies dizziness, palpitations, shortness of breath or chest pain. Edema much improved. Heart rate increases to 120s to 140s with ambulation, 100-110's generally at rest. Blood pressure little soft at 1 point earlier today. Tolerating medications thus far. Daughter at bedside. Very lengthy discussion held with patient and her daughter. Updated her on her echocardiogram which revealed severe LV dysfunction EF 20-25%. Spent 37 minutes at bedside with patient and family discussions, chart review and medical decision making. Review of Systems Review of Systems: All systems reviewed & are unremarkable except as noted in HPI and below Constitutional: Constitutional: Reports as per HPI, Denies chills, Denies fever(s) and Denies poor appetite Eyes: Eyes: Reports as per HPI, Denies eye discharge, Denies loss of vision, Denies eye pain and Denies photophobia ENT: Reports as per HPI, Denies dizziness, Denies epistaxis, Denies nasal congestion and Denies sore throat Cardiovascular: Cardiovascular: Reports as per HPI, Denies chest pain, Denies syncope, Reports pedal edema, Reports leg edema, Denies palpitations, Denies dyspnea, Denies dysp
[2020-10-16] VITALS (15 sets, daily range): BP systolic 105–128; BP diastolic 66–89; PULSE 73–135; RESP 12–16; TEMP 36–36.8; O2SAT 92–99
[2020-10-16 05:45] LABS: Hematocrit 42.3 % (37.0-47.0); Hemoglobin 13.3 g/dL (12.0-15.0); Immature Platelet Fraction Pct 13.8 % (0.9-11.2); Mean Corpuscular HGB Conc 31.4 g/dl (32-36); Mean Corpuscular Hemoglobin 28.3 pg (26-34); Mean Platelet Volume 13.9 fl (7.4-10.4); Platelet Count Result 90 k/mm3 (150-375); Red Cell Distribution Width 15.4 % (11.5-14.5); White Blood Count 4.2 K/mm3 (4.5-10.0)
[2020-10-16 05:55] LABS: Anion Gap 8 mmol/L (8-16); Blood Urea Nitrogen 20 mg/dL (7-17); Calcium 8.6 mg/dL (8.4-10.2); Carbon Dioxide 25 mmol/L (22-30); Chloride 106 mmol/L (98-107); Estimated CRCL calculation 32 ml/min; Estimated Glomerular Filt Rate 60; Glucose 84 mg/dL (65-105); Magnesium 2.3 mg/dL (1.6-2.3); Potassium 3.7 mmol/L (3.4-5.0); Sodium 139 mmol/L (137-145)
[2020-10-16] MEDS: SIMVASTATIN 20 MG TABLET PO (08:01)
[2020-10-16] MEDS: METOPROLOL SUCCINATE EXT REL 100 MG TABCR PO (08:01)
[2020-10-16] MEDS: METOPROLOL SUCCINATE EXT REL 25 MG TABCR PO (08:02)
[2020-10-16] MEDS: APIXABAN 2.5 MG TABLET PO ×2 (08:02→20:38)
--- NOTE | 2020-10-16 12:55 | PM.IMPN ---
Progress Note: A&P Assessment and Plan (1) Atrial fibrillation with rapid ventricular response: Code(s): I48.91 - Unspecified atrial fibrillation Status: Acute Assessment and Plan: Admit to telemetry unit Diltiazem drip Echocardiogram in a.m. Serial troponins Cardiology consult Chest x-ray reviewed Lab work reviewed Urinalysis pending 10/16/20 12:55 10/13 Patient is 85-year-old female was brought to the emergency department by her daughter is patient was short of breath and lower extremity edema upon arrival to emergency depart patient was in atrial fibrillation with RVR diltiazem drip was started in the rate is trending down, patient is seen by Cardiology DC the drip started the patient on metoprolol 25 mg every 6 hours will continue to monitor, ordered a coagulation patient started on Eliquis 2.5 mg b.i.d., patient with history of hypothyroid patient TSH is low suggesting over treatment however a free T4 and total T3 are normal. Patient also has congestive heart failure with BNP of 7360, patient was started on IV Lasix however developed severe crampy and not been stopped will follow-up on cardiac echo, will have a PT OT evaluate the patient, patient daughter is present in the room answered all her questions. 10/14 patient with atrial fibrillation with RVR, patient seen by Cardiology suspect with RVR resulting over treatment of hypothyroid as patient did respond well to metoprolol, patient rate is trending down, tomorrow fittings tightener will switch over to long-acting metoprolol succinate, also stopped Bumex as patient is now euvolemic, Patient has no complaint of chest pain shortness of breath palpitation, patient's son is present in the room, if remains clinically stable plan is to discharge the patient on long-acting metoprolol. 10/15 patient's rate is controlled with metoprolol succinate and patient does not have any complaint of chest pain shortness of breath palpitation, patient cardiac echo showed ejection fraction of 20-25% patient will be seen by Cardiology further recommendation to follow, patient will need LifeVest for discharging home, will continue to monitor and follow-up. 10/16 patient with atrial fibrillation with RVR rate was trending and Toprol-XL was increased to. 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 (2) Acute congestive heart failure: Code(s): I50.9 - Heart failure, unspecified Status: Acute Assessment and Plan: Likely secondary to uncontrolled heart rate Strict I/O's Daily weight Lasix 40 mg IV b.i.d. Daily BMP Supportive care Heart healthy diet (3) Hypertension: Code(s): I10 - Essential (primary) hypertension Status: Acute Assessment and Plan: Continue home meds Continue to monitor Subjective Date/time seen: 10/16/20 12:55 10/13 Patient is 85-year-old female was brought to the emergency department by her daughter is patient was short of breath and lower extremity edema upon arrival to emergency depart patient was in atrial fibrillation with RVR diltiazem drip was started in the rate is trending down, patient is seen by Cardiology DC the drip started the patient on metoprolol 25 mg every 6 hours will continue to monitor, ordered a coagulation patient started on Eliquis 2.5 mg b.i.d., patient with history of hypothyroid patient TSH is low suggesting over treatment however a free T4 and total T3 are normal. Patient also has congestive heart failure with BNP of 7360, patient was started on IV Lasix however developed severe crampy and not been stopped will follow-up on cardiac echo, will have a PT OT evaluate the patient, patient daughter is present in the room answe
--- NOTE | 2020-10-16 14:46 | PM.PNCARD ---
Progress Note: A&P Assessment and Plan (1) Cardiomyopathy: Code(s): I42.9 - Cardiomyopathy, unspecified Status: Acute Assessment and Plan: new diagnosis severe LV dysfunction EF 20-25%. Etiology unknown, however, likely tachycardia induced cardiomyopathy. Acute heart failure with reduced ejection fraction, reasonably compensated at present. Heart rate control very important. Discussed further workup to exclude obstructive CAD, however, negative serial troponins argues against this although not definitive. Ideally add CRYSTAL-I or ARB, however, given borderline BP and imbalance/dizziness and her advanced age I fear risks may outweigh benefit. While she is clinically reasonably compensated, she is more symptomatic today and HR poorly controlled. (2) Atrial fibrillation with rapid ventricular response: Code(s): I48.91 - Unspecified atrial fibrillation Status: Acute Assessment and Plan: Unfortunately, HR suboptimally controlled on Toprol XL 125mg daily, concerns re safe uptitration. Discussed antiarrhythmic therapy and other options. Unable to safely utilize antiarrhythmic therapy until intracardiac thrombus status is known. Amiodarone problematic given thyroid disorder, unknown status of intracardiac thrombus which is of higher likely given patient's advanced age and severe LV dysfunction. Discussed if heart rate cannot be controlled given severe LV dysfunction CARLOS guided cardioversion may be required although decreased likelihood of success given hyperthyroid state. -Unfortunately, options limited as discussed. -Keep NPO after midnight in case we must consider CARLOS/CV with ANESTHESIOLOGY assistance due to advanced age, EF 20-25% and relative hypotension although would much prefer to avoid this if possible. Will observe overnight and if able to push medical therapy may do so. -Digoxin an option will give .25mg IVx1 then start .125mg IV x1 6 hours later with recommendations to follow. Must monitor electrolytes very closely keep K+ around 4 and Mg2+ 2. -Continue Eliquis 2.5 mg twice daily. (3) Acute congestive heart failure: Code(s): I50.9 - Heart failure, unspecified Status: Acute Assessment and Plan: Better compensation with diuresis. (4) Hypertension: Code(s): I10 - Essential (primary) hypertension Status: Acute Assessment and Plan: Stable, relatively hypotensive at times. monitor closely. This may prohibit more aggressive rate control with beta-blockers. Discussed digoxin as alternative for rate control may be necessary if remains rapid. Reassess in a.m.. Subjective Date/time seen: Date of Service: 10/16/20 14:46 Interval history: Follow-up visit in this 85-year-old lady with: Atrial fibrillation of uncertain chronicity/duration. Presents to the hospital with RVR and has responded very well to metoprolol which she is receiving 25 mg q.6 hours. She is also now anticoagulated with apixaban. Etiology of the atrial fib is uncertain but suspected related to hyperthyroidism. TSH level upon admission suggests over replacement. Patient is asymptomatic and today feels well and has no complaints currently. Patient not feeling as well. c/o some imbalance, not quite dizziness with position change, tiring more easily with adjusting in bed or ambulation. No CP or palps. Son at bedside. feels well. HR remains elevated at rest 100-120's up to 150's with ambulation. BP stable. Spent 26 minutes at bedside with patient and family with son with discussions, chart review, and medical decision making. Review of Systems Review of Systems: All systems reviewed & are unremarkable except as noted in HPI and below Constitutional: Constitutional: Reports as per HPI, Denies chills, Denies fever(s) and Denies poor appetite Eyes: Eyes: Reports as per HPI, Denies eye discharge, Denies loss of vision, Denies eye pain and Denies photophobia ENT: Reports as per HPI, Denies
[2020-10-16] MEDS: DIGOXIN INJ 250 MCG/ML 2 ML AMP (*BKC) IV PUSH (15:21)
[2020-10-17] VITALS: BP 128/68; PULSE 102; PULSE 77; RESP 14; TEMP 36.5; O2SAT 97
[2020-10-17 04:00] VITALS: BP 115/66; PULSE 77; PULSE 79; RESP 15; TEMP 36.5; O2SAT 94
[2020-10-17 05:07] LABS: Hematocrit 40.6 % (37.0-47.0); Hemoglobin 12.5 g/dL (12.0-15.0); Immature Platelet Fraction Pct 10.6 % (0.9-11.2); Mean Corpuscular HGB Conc 30.8 g/dl (32-36); Mean Corpuscular Hemoglobin 28.7 pg (26-34); Mean Corpuscular Volume 93.3 fl (80-100); Mean Platelet Volume 12.7 fl (7.4-10.4); Platelet Count Result 96 k/mm3 (150-375); Red Blood Count 4.35 M/mm3 (4.2-5.4); Red Cell Distribution Width 15.6 % (11.5-14.5); White Blood Count 4.1 K/mm3 (4.5-10.0)
[2020-10-17 05:14] LABS: Anion Gap 4 mmol/L (8-16); Blood Urea Nitrogen 17 mg/dL (7-17); Calcium 8.4 mg/dL (8.4-10.2); Carbon Dioxide 27 mmol/L (22-30); Chloride 108 mmol/L (98-107); Estimated CRCL calculation 29 ml/min; Estimated Glomerular Filt Rate 53; Glucose 83 mg/dL (65-105); Magnesium 2.3 mg/dL (1.6-2.3); Sodium 139 mmol/L (137-145)
[2020-10-17 08:00] VITALS: BP 129/78; PULSE 81; PULSE 92; RESP 20; TEMP 36.1; O2SAT 96
[2020-10-17 08:07] VITALS: PULSE 86
[2020-10-17] MEDS: APIXABAN 2.5 MG TABLET PO (08:07)
[2020-10-17] MEDS: METOPROLOL SUCCINATE EXT REL 25 MG TABCR PO (08:07)
[2020-10-17] MEDS: SIMVASTATIN 20 MG TABLET PO (08:07)
[2020-10-17] MEDS: METOPROLOL SUCCINATE EXT REL 100 MG TABCR PO (08:07)
--- NOTE | 2020-10-17 09:49 | PC.NURSE ---
[facility] flyer was given to patient in cardiac admission folder.
--- NOTE | 2020-10-17 11:14 | PM.PNCARD ---
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 Patient is doing well well at this time she is asymptomatic heart rate control is reasonable and she is anticoagulated with apixaban. I believe she should be discharged home and we should follow her up in the office with anticipation of attempting DC cardioversion in 4-6 weeks. I have written orders for digoxin 0.125 mg p.o. daily along with metoprolol which seems to be providing good rate control. There appears to be paperwork on the patient's chart for a life vest. Spoke to the patient and family for a while about this in the room as well. from my perspective we should discharge her home on the current regimen and we will again arrange follow-up in the office and consider outpatient DC cardioversion after she has been anticoagulated for 1-2 months. Homar Greenwood MD [facility] Subjective Date/time seen: Date of service:10/17/20 11:14 Interval history: Follow-up visit in this 85-year-old lady with: Atrial fibrillation of uncertain chronicity/duration. Presents to the hospital with RVR and has responded very well to metoprolol which she is receiving 25 mg q.6 hours. She is also now anticoagulated with apixaban. Etiology of the atrial fib is uncertain but suspected related to hyperthyroidism. TSH level upon admission suggests over replacement. Patient is asymptomatic and today feels well and has no complaints currently. Date of service 10/17/2020: Patient slept poorly last night awakening every 2 or 3 hours but otherwise feels well and does not have any complaints. Digoxin has been added to her metoprolol to provide rate control and heart rate control at this time is quite reasonable. She is anticoagulated with apixaban. Discussed with the patient and daughter at length my recommendation which would be to continue rate control and anticoagulation and consider cardioversion in 4-6 weeks as an outpatient. She is not hemodynamically unstable or symptomatic enough to warrant CARLOS/cardioversion which was being considered for this morning. Exam Const: General: cooperative, comfortable, no acute distress, alert and awake Nutritional Appearance: well nourished Orientation/consciousness: patient oriented x3 Other: Pleasant thin elderly lady no distress HENMT: Head: normal to inspection, normocephalic and atraumatic Ears: hearing grossly normal bilaterally General nose exam: Normal external nose present, Normal nares present and no nasal discharge noted Face and sinus: normal facial exam and no erythema Mouth: Yes moist mucous membranes, No drooling and No restricted motion Throat: uvula midline Eyes: General: appearance normal, both eyes and all related structures Alignment and Position: position normal Conjunctivae: conjunctivae normal Sclera: sclerae normal Pupils: Equal, round and reactive pupils present Direct Ophthalmoscopy: No photophobia Neck: Neck: normal visual inspection, supple and no JVD Thyroid: thyroid normal Carotids: no bruits Lymphatic: lymphedema not noted Chest: Chest palpation & inspection: normal inspection of the chest and no tenderness Resp: Effort & Inspection: normal respiratory effort and no nasal flaring Auscultation: clear to auscultation bilaterally, no crackles, no rales and no wheezes Cardio: Jugular venous distension: no JVD Rate: tachycardic Rhythm: abnormal rhythm irregularly irregular Heart sounds: S1 normal heart sound present, S2 normal heart sound present, no murmurs and no rubs GI: Inspection: non-distended Auscultation: normal bowel sounds Rectal Exam: deferred : General: No no CVA tenderness Back/Spine/Pelvis: Back: No no CVA tenderness Cervical Spine: cervical ROM normal Skin: General skin exam: normal color and rashes and/or lesions noted Neuro: General: patient oriented x3 Cranial
[2020-10-17 11:38] VITALS: PULSE 82
[2020-10-17] MEDS: DIGOXIN TAB 125 MCG TABLET PO (11:38)
--- NOTE | 2020-10-17 11:46 | PM.DS ---
DS: Admitting Diagnosis Admitting Diagnosis Admitting Diagnosis: Chief Complaint: Shortness of breath DS: Discharge Diagnosis Discharge Diagnosis (1) Atrial fibrillation with rapid ventricular response: Code(s): I48.91 - Unspecified atrial fibrillation Status: Acute Assessment and Plan: Admit to telemetry unit Diltiazem drip Echocardiogram in a.m. Serial troponins Cardiology consult Chest x-ray reviewed Lab work reviewed Urinalysis pending 10/16/20 12:55 10/13 Patient is 85-year-old female was brought to the emergency department by her daughter is patient was short of breath and lower extremity edema upon arrival to emergency depart patient was in atrial fibrillation with RVR diltiazem drip was started in the rate is trending down, patient is seen by Cardiology DC the drip started the patient on metoprolol 25 mg every 6 hours will continue to monitor, ordered a coagulation patient started on Eliquis 2.5 mg b.i.d., patient with history of hypothyroid patient TSH is low suggesting over treatment however a free T4 and total T3 are normal. Patient also has congestive heart failure with BNP of 7360, patient was started on IV Lasix however developed severe crampy and not been stopped will follow-up on cardiac echo, will have a PT OT evaluate the patient, patient daughter is present in the room answered all her questions. 10/14 patient with atrial fibrillation with RVR, patient seen by Cardiology suspect with RVR resulting over treatment of hypothyroid as patient did respond well to metoprolol, patient rate is trending down, tomorrow director of sports performance will switch over to long-acting metoprolol succinate, also stopped Bumex as patient is now euvolemic, Patient has no complaint of chest pain shortness of breath palpitation, patient's son is present in the room, if remains clinically stable plan is to discharge the patient on long-acting metoprolol. 10/15 patient's rate is controlled with metoprolol succinate and patient does not have any complaint of chest pain shortness of breath palpitation, patient cardiac echo showed ejection fraction of 20-25% patient will be seen by Cardiology further recommendation to follow, patient will need LifeVest for discharging home, will continue to monitor and follow-up. 10/16 patient with atrial fibrillation with RVR rate was trending and Toprol-XL was increased to. 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 (2) Acute congestive heart failure: Code(s): I50.9 - Heart failure, unspecified Status: Acute Assessment and Plan: Likely secondary to uncontrolled heart rate Strict I/O's Daily weight Lasix 40 mg IV b.i.d. Daily BMP Supportive care Heart healthy diet (3) Hypertension: Code(s): I10 - Essential (primary) hypertension Status: Acute Assessment and Plan: Continue home meds Continue to monitor DS: Summary Hospital Course Reason for hospitalization: Chief Complaint: Shortness of breath Narrative: This is an 85-year-old female with past medical history significant for hypothyroidism, dyslipidemia. Patient was brought to the emergency room due to concerns of her daughter after she noticed that her mother has bilateral lower extremity edema and shortness of breath while she was visiting with her. Patient states that she has not been feeling well for the last 2 months or so she has been having palpitation, shortness of breath, chest pain in the retrosternal area feels like a weight on my chest type of feeling, she noticed worsening of shortness of breath with activity but now also present at rest could not lay flat in the bed and has been sleeping in her 's rec
== END 2020-10-17 12:50 | disposition home or self-care (01) | DRG 308 ==
LOC: ANHED 22:55 → ANHIMU 10-13 02:01 → ANHICU 10-18 16:32 → ANHIMU 10-18 16:32
PROVIDERS: Emergency Medicine; Admitting Provider Internal Medicine; Emergency Provider Family Medicine; PCP Internal Medicine; Visit Provider Family Medicine
DX: I48.91 Unspecified atrial fibrillation (principal); I50.21 Acute systolic (congestive) heart failure; I11.0 Hypertensive heart disease with heart failure; I42.9 Cardiomyopathy, unspecified; E03.9 Hypothyroidism, unspecified; E78.5 Hyperlipidemia, unspecified; Z79.899 Other long term (current) drug therapy
CPT/HCPCS: 36415; 71046; 80048; 81001; 83735; 83880; 84439; 84443; 84480; 84484; 85025; 85027; 85055; 93005; 93306; 96374; 96375; 99285; A9270; J1160; J1650; J1940

== ENCOUNTER 2021-04-13 12:51 | Observation (INO) | payer MEDICARE, OTHER, SELFPAY ==
[2021-04-13] VITALS (11 sets, daily range): BP systolic 93–190; BP diastolic 56–107; PULSE 48–97; RESP 18–20; TEMP 36.6–37; O2SAT 93–99; BMI 18.3
--- NOTE | ~2021-04-13 | XR_ITS ---
EXAMINATION: XR chest 1V portable DATE: 04/13/2021 13:42 INDICATION: Midsternal chest pain. TECHNIQUE: A single frontal view of the chest was obtained. COMPARISON: Chest 2 views 10/12/2020 FINDINGS: There is mild scarring at the lung apices. No pleural effusion or pneumothorax. The heart s ize is normal. IMPRESSION: 1. Mild scarring at the lung apices. Reviewed, dictated and finalized at location A. UNICATIONS MAINTAINER
--- NOTE | 2021-04-13 13:10 | ED.CHESTPAIN ---
HPI - Chest Pain General Chief Complaint: Chest Pain Stated Complaint: chest pain Time Seen by Provider: 04/13/21 13:04 Source: RN notes reviewed History of Present Illness HPI narrative: Patient presents emergency department from home for chest pain. Patient states that early this morning she had midsternal chest pain that did not radiate described as a pressure she states it lasted several hours and resolved and has had no pain since that time she states she did feel short of breath with the episode and still feels like she is having a hard time taking a deep breath. Patient states she did have some nausea with the episode but states she did not vomit she does state that when she swallows she feels like something is stuck in her throat but she is able to get things down she denies any fevers or chills vomiting diarrhea or any other symptoms states she has a history of atrial fibrillation is followed by Dr. Greenwood currently on [employer] Related Data Home Medications Medication Instructions Recorded Confirmed levothyroxine 50 mcg PO DAILY 10/13/20 04/13/21 simvastatin 20 mg PO DAILY 10/13/20 04/13/21 trazodone 50 mg PO QPM PRN 10/13/20 04/13/21 meclizine 25 mg PO TID PRN 04/13/21 04/13/21 Allergies Allergy/AdvReac Type Severity Reaction Status Date / Time No Known Allergies Allergy Verified 04/13/21 13:02 Review of Systems Review of Systems: Gen.: Denies fevers or chills Eyes: Denies eye pain or visual change ENT: Denies congestion Respiratory: Reports shortness of breath or chest pain CV: See HPI GI: Denies abdominal pain emesis or diarrhea. Reports nausea Musculoskeletal: Denies back pain or muscle pain Neuro: Denies numbness, tingling, weakness or focal weakness Skin: Denies rash Except as documented, all other systems reviewed and negative [facility] Past Medical History Medical History Hyperlipidemia Hypothyroidism Surgical History Surgical History (Updated 10/13/20 @ 09:42 by Jeannine Gutierrez MD) H/O hysterectomy for benign disease Social History Social History Smoking status: Never smoker Alcohol intake: never Substance use: never Substance use type: does not use Spiritual care concerns: No Exam Narrative: APPEARANCE: No acute distress, nontoxic, resting in bed EYES: EOMI HEENT: Normocephalic, atraumatic, OMM RESPIRATORY: No respiratory distress Clear to auscultation bilaterally with no rhonchi wheezing or rales. CARDIOVASCULAR: Irregular irregular without murmurs rubs or gallops. ABDOMINAL: Soft, nontender, nondistended, no rebound or guarding MUSCULOSKELETAl: Moves all extremities. No clubbing, cyanosis or edema. NEURO: Awake and alert. Following commands, speech normal, no focal deficits SKIN:: Warm, dry. No rashes lesions or abrasions PSYCHIATRIC: Normal affect/mood, Course Course Emergency Course: Discussed with MEGAN Talbot for Dr. Groves agrees with admission Discussed with Dr. Eddy for cardiology presentation work-up agrees Discussed with patient and family results of workup and diagnosis. Discussed need for admission. Patient and family understand and agree to current treatment plan Vital Signs Vital signs: Vital Signs Temperature 97.9 F 04/13/21 12:53 Pulse Rate 70 04/13/21 12:53 Respiratory Rate 20 04/13/21 12:53 Blood Pressure 147/107 H 04/13/21 12:53 Pulse Oximetry 97 04/13/21 12:53 Temperature 97.9 F 04/13/21 12:53 Pulse Rate 48 L 04/13/21 14:02 Respiratory Rate 18 04/13/21 14:02 Blood Pressure 126/56 L 04/13/21 14:02 Pulse Oximetry 97 04/13/21 14:02 MDM - Chest Pain Lab Data Result diagrams: 04/13/21 13:18 04/13/21 13:18 Labs: Lab Results 04/13/21 04/13/21 04/13/21 Range/Units 13:18 13:18 13:18 WBC 5.3 (4.5-10.0) K/mm3 RBC 4.45 (4.2-5.4) M/mm3 Hgb 13.4 (12.0-15.
--- NOTE | 2021-04-13 13:12 | ECG_ITS ---
Measurements Intervals [place] Rate: 57 P: WV: 0 QRS: -37 QRSD: 96 T: -28 QT: 428 QTc: 418 Interpretive Statements ATRIAL FIBRILLATION WITH SLOW VENTRICULAR RESPONSE LEFT AXIS DEVIATION INCOMPLETE RIGHT BUNDLE BRANCH BLOCK VOLTAGE CRITERIA FOR LVH ST-T WAVE ABNORMALITY IN ANT/HIGH LAT LEADS- CONSIDER ISCHEMIA BASELINE WANDER- I, II, III ABNORMAL ECG Electronically Signed On 04-13-2021 17:01:35 RUBBER BELT SPLICER by Jah Delacruz D.O.
[2021-04-13 13:23] LABS: Basophils Percent Auto 0.4 % (0.2-1.2); Eosinophils Absolute Auto 0.1 K/mm3 (0-0.3); Eosinophils Percent Auto 1.1 % (0-4.4); Hematocrit 41.5 % (37.0-47.0); Hemoglobin 13.4 g/dL (12.0-15.0); Immature Granulocyte Absolute 0.03 K/mm3 (0.00-0.031); Immature Granulocyte Percent A 0.6 % (0-0.5); Lymphocytes Absolute Auto 1.22 K/mm3 (0.9-3.2); Mean Corpuscular HGB Conc 32.3 g/dl (32-36); Mean Corpuscular Hemoglobin 30.1 pg (26-34); Mean Corpuscular Volume 93.3 fl (80-100); Mean Platelet Volume 12.5 fl (7.4-10.4); Monocytes Absolute Auto 0.9 K/mm3 (0.1-0.6); Monocytes Percent Auto 16.4 % (2.6-8.5); Neutrophils Absolute Auto 3.1 K/mm3 (1.3-6.7); Neutrophils Percent Auto 58.5 % (45.5-73.1); Platelet Count Result 93 k/mm3 (150-375); Red Blood Count 4.45 M/mm3 (4.2-5.4); Red Cell Distribution Width 13.7 % (11.5-14.5); White Blood Count 5.3 K/mm3 (4.5-10.0)
[2021-04-13 13:32] LABS: INR 1.3; Prothrombin Time 15.8 Seconds (11.1-14.7)
[2021-04-13 13:33] LABS: Partial Thromboplastin Time 30.4 SECONDS (22.3-36.8)
[2021-04-13 13:36] LABS: Alanine Aminotransferase 14 U/L (4-35); Albumin Level 4.2 g/dL (3.5-5.1); Alkaline Phosphatase 75 U/L (38-126); Anion Gap 11 mmol/L (8-16); Aspartate Amino Transferase 28 U/L (14-36); Bilirubin,Total 1.5 mg/dL (0.2-1.3); Blood Urea Nitrogen 13 mg/dL (7-17); Calcium 8.9 mg/dL (8.4-10.2); Carbon Dioxide 23 mmol/L (22-30); Chloride 105 mmol/L (98-107); Estimated CRCL calculation 35 ml/min; Estimated Glomerular Filt Rate > 60; Glucose 119 mg/dL (65-110); Lipase 39 U/L (23-300); Sodium 139 mmol/L (137-145)
[2021-04-13 13:47] LABS: Troponin I < 0.012 ng/mL (0.000-0.034)
[2021-04-13] MEDS: ASPIRIN 81 MG CHEWABLE TABLET 324 MG PO (14:01)
--- NOTE | 2021-04-13 14:50 | PM.IMHP ---
H&P: HPI History of Present Illness Date/Time: 04/13/21 14:50 Chief Complaint: Chest pain. 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 She seems to have some mild, early dementia and is somewhat forgetful though she is able to provide a pretty good history. She seemed in her usual state of health when she went to bed last night however she does remark that while eating ground turkey meat and sweet potatoes last evening that she as though she was having difficulty swallowing and that perhaps the food felt as though it was getting stuck somewhat in the mid esophagus. In any event she typically gets up a couple of times each night to use the restroom and when she woke at about 02:00 she reports nausea and discomfort from the mid throat down to the mid sternum ?right over my chest bone that she has a difficult time describing. At 1 point time she told me it felt as though there was something sitting on her chest and other times she felt as though it was a pressure that perhaps would get better with belching thus she tried to drink some soda although that did not help. She was also feeling a bit nauseated at that time and reports coughing up small amount of ?clear slime. She was able to drift back off to sleep after an hour or so although this morning her symptoms returned, possibly coinciding with her breakfast of which she was only able to eat a half a donut as she felt that it got stuck in her esophagus. She was able to ?wash it down with coffee? and does not sound as though she has had any discomfort since that time. EKG on arrival to the emergency department showed some anterolateral ST and T-wave abnormalities which appear a bit more prominent than a previous tracing and she is being admitted in this setting. Currently she has no complaints and she is hopeful that she will be able to go home tomorrow afternoon in time for [place]. Review of Systems Review of Systems: Twelve systems were reviewed. No fever, chills, or sweats. No recent cold or flu symptoms. She denies sick contacts. She denies concerns for aspiration. No coughing or choking with drinking or eating. She denies syncope and near syncope. No exertional chest pain or shortness of breath. She denies GERD symptoms. No bloating or significant gas. No orthopnea, PND, or lower extremity edema. Except as documented, all other systems were reviewed and are negative. [facility] Past Medical History Medical History (Updated 04/13/21 @ 20:29 by Dahiana Barnes PA-C) Atrial fibrillation Cardiomyopathy [place] to be tachycardia induced. EF as low as 20 to 25% in September 2020 but improved to 57% in January 2021. Congestive heart failure Hyperlipidemia Hypothyroidism Surgical History Surgical History (Updated 04/13/21 @ 20:24 by Dahiana Barnes PA-C) History of bilateral cataract extraction History of hysterectomy for benign disease Family History Family History Father Tuberculosis Social History Social History (Updated 04/13/21 @ 20:25 by Dahiana Barnes PA-C) Social History: Surrogate decision maker: Celina Toribio and Leda Farr, daughters. Code status: Full code. Smoking status: Never smoker Alcohol intake: never Substance use: never Substance use type: does not use Additional living arrangements comments: The patient is and lives in her own home in [place]. Additional occupation/education comments: Retired. Meds Home Medications and Allergies Home Medications Medication Instructions Recorded Confirmed Type levothyroxine 50 mcg PO DAILY 10/13/20 04/13/21 History
[2021-04-13 16:37] LABS: Troponin I < 0.012 ng/mL (0.000-0.034)
--- NOTE | 2021-04-13 16:48 | PM.CNCAR ---
Assessment and Plan Assessment and plan (1) Chest pain: Code(s): R07.9 - Chest pain, unspecified Status: Acute Assessment and Plan: This is probably GI/esophageal in etiology but cannot exclude angina completely especially given her EKG. Will rule out for myocardial infarction with serial cardiac enzymes. P.r.n. nitroglycerin will be utilized. Consult GI. Repeat EKG in the morning. Continue metoprolol, statin. She is on Eliquis for anticoagulation because of her atrial fibrillation. She already received an aspirin in the ER. Will start pantoprazole 40 mg p.o. daily. Lexiscan myocardial perfusion study to be performed either as an inpatient or outpatient depending on the results of the above tests an opinion from GI. (2) Atrial fibrillation: Code(s): I48.91 - Unspecified atrial fibrillation Status: Acute Assessment and Plan: Heart rate controlled on metoprolol. This be continued. On Eliquis (3) Cardiomyopathy: Code(s): I42.9 - Cardiomyopathy, unspecified Status: Acute Assessment and Plan: Improved with better rate control. Echocardiogram in office showed EF of 57%. Continue current regimen. (4) Hypertension: Code(s): I10 - Essential (primary) hypertension Status: Acute (5) Congestive heart failure: Qualifiers: Heart failure chronicity: acute Heart failure type: unspecified Qualified Code(s): I50.9 - Heart failure, unspecified Code(s): I50.9 - Heart failure, unspecified Status: Acute Assessment and Plan: Chronic systolic. Now normalized ejection fraction continue current home meds History of Present Illness History of Present Illness Consult date/time: 04/13/21 16:48 Requesting physician: Yusuf Velázquez DO Consult reason: chest pain Reason For Visit: chest pain Narrative: Date of service 04/13/2021 Reason consultation: Chest pain Requesting provider: Dr. Velázquez History: Patient is an 85-year-old female who has some early dementia. She also has atrial fibrillation, tachycardic induced cardiomyopathy. She was seen in September of 2020 because of congestive heart failure. She was found have an ejection fraction 20-25% at that time. Rate control strategy was performed and she did have improvement of her ejection fraction up to 57% by echocardiogram in our office in January 2021. There is documentation that patient did not wish to pursue invasive of workup in the past. Regardless she came to this hospital because of chest pain. She called our office who told her to come to the hospital for further workup and evaluation treatment. She was recently seen in the office [address] Greenwood. At that time she was doing fine. Last night however she started to have some anterior chest pain. She is a difficult historian and does have tangential thoughts and conversations but it appears that at 2:00 a.m. she started have some strong chest pain which he then later describes as pressure. She felt though his if she could burp or belch that she would feel better. She also on multiple occasions discussed and describe some pain whenever she coughs as well as whenever she swallows. Upon further questioning she does feel like she has been having issues with swallowing and it is described as difficulty with eating and drinking. She was in trying to force herself to throw up. She also had a headache earlier this morning. Her pain ? ?away over about a 2 hour time frame. Her daughter then followed up with her earlier today and again after having conversation with our office, it was decided she should come to the hospital for further workup evaluation. Patient describes no exertional chest pain recently. She describes no unusual shortness breath, syncope, presyncope, paroxysmal nocturnal dyspnea, orthopnea or edema. She does have some issues with belching and a sensation of gas that has been occurring for the past couple months
[2021-04-13] MEDS: PANTOPRAZOLE 40 MG TABLET PO (17:59)
[2021-04-13 19:37] LABS: Troponin I < 0.012 ng/mL (0.000-0.034)
[2021-04-13 21:18] LABS: Thyroid Stimulating Hormone Reflex 0.073 uIU/mL (0.465-4.68)
[2021-04-13 21:55] LABS: Digoxin 0.9 ng/mL (0.8-2.0)
[2021-04-13 22:05] LABS: Free T4 Free Thyroxine Reflex 1.74 ng/dL (0.78-2.19)
[2021-04-13 22:58] LABS: Total Triiodothyronine (T3) 0.99 NG/ML (0.97-1.69)
[2021-04-14] VITALS (9 sets, daily range): BP systolic 138–154; BP diastolic 55–76; PULSE 60–84; RESP 16–19; TEMP 36.2–37.1; O2SAT 94–96
[2021-04-14 05:44] LABS: Basophils Percent Auto 0.4 % (0.2-1.2); Eosinophils Percent Auto 0.6 % (0-4.4); Hematocrit 38.3 % (37.0-47.0); Immature Granulocyte Absolute 0.01 K/mm3 (0.00-0.031); Immature Granulocyte Percent A 0.2 % (0-0.5); Lymphocytes Absolute Auto 1.16 K/mm3 (0.9-3.2); Lymphocytes Percent Auto 23.6 % (18.3-44.2); Mean Corpuscular HGB Conc 31.3 g/dl (32-36); Mean Corpuscular Hemoglobin 29.5 pg (26-34); Mean Corpuscular Volume 94.1 fl (80-100); Monocytes Absolute Auto 0.6 K/mm3 (0.1-0.6); Neutrophils Absolute Auto 3.1 K/mm3 (1.3-6.7); Neutrophils Percent Auto 62.2 % (45.5-73.1); Platelet Count Result 89 k/mm3 (150-375); Red Blood Count 4.07 M/mm3 (4.2-5.4); Red Cell Distribution Width 13.6 % (11.5-14.5); White Blood Count 4.9 K/mm3 (4.5-10.0)
[2021-04-14] MEDS: LEVOTHYROXINE SODIUM 50 MCG TABLET PO (05:47)
[2021-04-14 05:49] LABS: Anion Gap 9 mmol/L (8-16); Blood Urea Nitrogen 12 mg/dL (7-17); Calcium 8.3 mg/dL (8.4-10.2); Carbon Dioxide 22 mmol/L (22-30); Chloride 101 mmol/L (98-107); Estimated CRCL calculation 39 ml/min; Estimated Glomerular Filt Rate > 60; Glucose 136 mg/dL (65-110); Magnesium 2.1 mg/dL (1.6-2.3); Potassium 3.2 mmol/L (3.4-5.0); Sodium 132 mmol/L (137-145)
--- NOTE | 2021-04-14 08:30 | WPDGICN ---
Assessment and Plan Assessment and plan (1) Dysphagia: Code(s): R13.10 - Dysphagia, unspecified Status: Acute Assessment and Plan: She has it appears both dysphagia and odynophagia. She states she is better now and eating without much difficulty. She does not want any investigation at this time. I told her that I think that she needs to consider endoscopy. I explained that is quite safe and a brief examination under sedation. She states she will consider it. I explained that her Eliquis would need to be held for couple of days and she mentioned that she had been told that in the past. Her case was discussed with Fatemeh Turner, and we agree that it would be okay for her to go home and have further studies as an outpatient (2) Atrial fibrillation: Code(s): I48.91 - Unspecified atrial fibrillation Status: Acute Assessment and Plan: She is on Eliquis. Cardiology follows her regularly. (3) Chest pain: Code(s): R07.9 - Chest pain, unspecified Status: Acute Assessment and Plan: the patient states that the actual pain she complained that was on her sternum and not internal. The pain on swallowing she states is up in the throat or very upper substernal area GI Consult Note Consult date/time: 04/14/21 08:30 HPI: Renata Brown is a 85 year old female was admitted with chest pain. She is followed by Cardiology and apparently had called their office and was directed to go to the emergency room because of chest pain. She tells me that she is fairly certain was not her heart bothering her, and she was having mainly tenderness of the anterior chest wall pointing to her sternum. Also however she was having painful swallowing and felt that food is getting stuck from time to time. She states that this has been going on for maybe a couple weeks. She has never had an endoscopy and she states that it was brought up once in the past but she and or her family felt that it was very dangerous and declined it. I wonder if they were actually thinking of some other procedure. At any rate I told her that there is a risk of food impaction and that until this has been investigated she would need to chew very thoroughly. She denies having typical heartburn. She states that she might occasionally get some acid reflux but that is unusual. She does not take a proton pump inhibitor at this time at home. She denies recent weight loss. She denies abdominal pain or vomiting. She denies any significant change in bowel habits, she does not believe that she has had a colonoscopy. 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 Review of Systems Review of Systems: All systems reviewed & are unremarkable except as noted in HPI and below PMFSH Past Medical History Medical History Atrial fibrillation Cardiomyopathy [place] to be tachycardia induced. EF as low as 20 to 25% in September 2020 but improved to 57% in January 2021. Congestive heart failure Hyperlipidemia Hypothyroidism Surgical History Surgical History History of bilateral cataract extraction History of hysterectomy for benign disease Family History Family History Father Tuberculosis Social History Social History Social History: Surrogate decision maker: Celina Toribio and Leda Farr, daughters. Code status: Full code. Smoking status: Never smoker Alcohol intake: never Substance use: never Substance use type: does not use Additional living arrangements comments: The patient is and lives in her own home in [place]. Additional occupation/education comments: Retired. M
--- NOTE | 2021-04-14 09:47 | PM.PNCARD ---
Progress Note: A&P Assessment and Plan (1) Chest pain: Code(s): R07.9 - Chest pain, unspecified Status: Acute Assessment and Plan: This is probably GI/esophageal in etiology but cannot exclude angina completely especially given her EKG. She has ruled out for MT. again I think that her acute presenting issue is GI related. Her EKG is more abnormal than it was previously but she has ruled out. I did talk to her as well as her daughter. They still do not want to pursue invasive workup. Therefore, I would simply treat her medically and not pursue stress testing. Regardless of stress test result, invasive cardiac catheterization is not warranted at this point. They verbalized understanding of risks benefits alternatives and are wanting to go home at this point. They have follow-up with Dr. Greenwood in 6 months and they will call to schedule an earlier appointment if a worse to pursue stress testing or catheterization plus-minus depending on what is found with the GI workup Okay for discharge from my perspective (2) Atrial fibrillation: Code(s): I48.91 - Unspecified atrial fibrillation Status: Acute Assessment and Plan: Heart rate controlled on metoprolol. This be continued. On Eliquis (3) Cardiomyopathy: Code(s): I42.9 - Cardiomyopathy, unspecified Status: Acute Assessment and Plan: Improved with better rate control. Echocardiogram in office showed EF of 57%. Continue current regimen. (4) Hypertension: Code(s): I10 - Essential (primary) hypertension Status: Acute (5) Congestive heart failure: Qualifiers: Heart failure chronicity: acute Heart failure type: unspecified Qualified Code(s): I50.9 - Heart failure, unspecified Code(s): I50.9 - Heart failure, unspecified Status: Acute Assessment and Plan: Chronic systolic. Now normalized ejection fraction continue current home meds Will discontinue her IV fluids as to not to cause iatrogenic volume overload. KCL 40 mg p.o. x1 will also be given because of her hypokalemia. Subjective Date/time seen: 04/14/21 09:47 Interval history: 85-year-old admitted for chest pain and abnormal EKG Date of service 04/14/2021: She feels okay and denies any chest pain, shortness breath, syncope, presyncope, paroxysmal nocturnal dyspnea. Still has a scratchy throat. Wants to go home Review of Systems Review of Systems: All systems reviewed & are unremarkable except as noted in HPI and below Constitutional: Constitutional: Denies fatigue, Denies headache(s) and Denies weakness Eyes: Eyes: Denies blurry vision ENT: Reports Normal hearing present, Denies headache(s) and Denies neck pain Cardiovascular: Cardiovascular: Reports chest pain and Denies dyspnea Respiratory: Respiratory: Denies dyspnea Gastrointestinal: Gastrointestinal: Reports heartburn and Reports vomiting Genitourinary: Genitourinary: Denies flank pain Musculoskeletal: Musculoskeletal: Denies neck pain Integumentary/Breasts: Skin/Breast: Denies dry skin Neurologic: Reports Normal hearing present, Denies headache(s) and Denies weakness Psychiatric: Psychiatric: Denies anxiety Endocrine: Endocrine: Denies fatigue Hematologic/Lymphatic: Hematologic/Lymphatic: Denies easy bleeding Allergic/Immunologic: Allergic/Immunologic: Denies GI upset with certain foods Exam Narrative: Awake alert oriented appears to be in no acute distress. Appears stated age Const: General: comfortable and no acute distress HENMT: General nose exam: Normal nares present Eyes: Sclera: sclerae normal Neck: Neck: supple and no JVD Chest: Other: No reproducible chest wall pain to palpation Resp: Auscultation: clear to auscultation bilaterally Cardio: Rate: regular rate Rhythm: abnormal rhythm irregularly irregular Skin: General skin exam: normal color and no erythema Neuro: Cranial nerves: Yes Normal hearing prese
--- NOTE | 2021-04-14 10:08 | PM.DS ---
DS: Admitting Diagnosis Discharge Date 04/16/21 Admitting Diagnosis chest pain DS: Discharge Diagnosis Discharge Diagnosis (1) Chest pain: Code(s): R07.9 - Chest pain, unspecified Status: Acute (2) Dysphagia: Code(s): R13.10 - Dysphagia, unspecified Status: Acute (3) Atrial fibrillation: Code(s): I48.91 - Unspecified atrial fibrillation Status: Acute (4) Cardiomyopathy: Code(s): I42.9 - Cardiomyopathy, unspecified Status: Acute (5) Hypertension: Code(s): I10 - Essential (primary) hypertension Status: Acute (6) Thrombocytopenia: Code(s): D69.6 - Thrombocytopenia, unspecified Status: Acute DS: Summary Hospital Course Hospital Course: dos 04/14/21 patient is an 85-year-old female with history of AFib and CHF who presented emergency room on 04/13/2021 for chest pain that she had a difficult time describing. She stated that she felt like food got stuck last evening after dinner and that it was causing her chest pain but was not sure it was that or just pressure-like chest pain which concerned her due to her heart history vitals in the ER were temperature 97.9? F, pulse 70, respiratory rate 20, blood pressure 147/107, pulse ox 97 on room air. CBC showed thrombocytopenia and BMP was normal. chest x-ray showed mild scarring at the lung bases. EKG was reviewed which showed abnormalities in the anterior lateral leads which appear to be more predominant than past troponins were negative x3. Patient was admitted to the hospitalist service for observation. The next day when I saw her, she was having absolutely no pain take home. She did not appear to be in heart failure. GI did see her and she stated that she ate dinner just fine and nothing got stuck. She will consider possible outpatient follow-up if she continues to have this issue. As for her thrombocytopenia, this looks like it has been chronic since September and she can follow up with her primary care physician about this. cardiology spoke with her about an outpatient ischemic evaluation but the patient stated that she did not want to undergo any procedures such as a catheterization so they will likely just manage that medically but patient is to make an appointment with Cardiology if she changes her mind. Overall, the day of discharge the patient was ready to go. She was educated about the worrisome signs and symptoms to come back to emergency room for and was discharged in stable condition. Time Spent with Patient Time attestation: Total time spent providing and/or coordinating discharge services: 32 minutes Exam Narrative: General: Well developed well nourished patient in NAD HEENT: normocephalic Neck: supple Neuro: Alert and oriented x4 CV:RRR Resp:CTA Abd: Soft, non distended. No pain to palpation. Positive bowel sounds Extremities: No swelling, erythema, or pain to palpation. DS: Data Data Completed and Pending Labs on day of discharge: Labs from last 24 hours 04/14/21 04/14/21 04/13/21 04:55 04:55 20:46 WBC 4.9 RBC 4.07 L Hgb 12.0 Hct 38.3 MCV 94.1 MCH 29.5 MCHC 31.3 L RDW 13.6 Plt Count 89 L MPV 13.0 H Immature Gran % (Auto) 0.2 Neut % (Auto) 62.2 Lymph % (Auto) 23.6 [place] % (Auto) 13.0 H Eos % (Auto) 0.6 Baso % (Auto) 0.4 Lymph # (Auto) 1.16 [place] # (Auto) 0.6 Eos # (Auto) 0.0 Baso # (Auto) 0.0 Abs Immat Gran (auto) 0.01 Absolute Neuts (auto) 3.1 Absolute Nucleated RBC 0.0 Nucleated RBC % 0.0 PT INR APTT Sodium 132 L Potassium 3.2 L Chloride 101 Carbon Dioxide 22 Anion Gap 9 BUN 12 Creatinine 0.70 Estim Creat Clear Calc 39 Estimated GFR > 60 Glucose 136 H Calcium 8.3 L Magnesium 2.1 Total Bilirubin AST ALT Alkaline Phosphatase Troponin I Total Protein Albumin Lipase TSH (Reflex) Free T4 Total T3
[2021-04-14] MEDS: APIXABAN 2.5 MG TABLET PO (10:28)
[2021-04-14] MEDS: POTASSIUM CHLORIDE 20 MEQ PACKET (FOR LIQUID) 40 MEQ PO (10:28)
[2021-04-14] MEDS: PANTOPRAZOLE 40 MG TABLET PO (10:29)
[2021-04-14] MEDS: METOPROLOL SUCCINATE EXT REL 100 MG TABCR PO (10:29)
[2021-04-14] MEDS: DIGOXIN TAB 125 MCG TABLET PO (10:29)
[2021-04-14] MEDS: SIMVASTATIN 20 MG TABLET PO (10:30)
== END 2021-04-14 10:44 | disposition home or self-care (01) ==
LOC: ANHED 14:16 → ANHIMU 15:13
PROVIDERS: Physician Assistant; Admitting Provider Family Medicine; Emergency Provider Emergency Medicine; PCP Internal Medicine; Visit Provider Family Medicine
DX: R07.9 Chest pain, unspecified (principal); R13.10 Dysphagia, unspecified; I11.0 Hypertensive heart disease with heart failure; I50.22 Chronic systolic (congestive) heart failure; D69.6 Thrombocytopenia, unspecified; E87.6 Hypokalemia; E03.9 Hypothyroidism, unspecified; E78.5 Hyperlipidemia, unspecified; I48.91 Unspecified atrial fibrillation; I42.9 Cardiomyopathy, unspecified; Z79.01 Long term (current) use of anticoagulants
CPT/HCPCS: 36415; 71045; 80048; 80053; 80162; 83690; 83735; 84439; 84443; 84480; 84484; 85025; 85610; 85730; 93005; 99285; A9270; G0378

== ENCOUNTER 2022-01-26 11:28 | Emergency (ER) | payer MEDICARE, OTHER, SELFPAY ==
--- NOTE | ~2022-01-26 | US_ITS ---
EXAMINATION: US venous doppler LE RT DATE: 01/26/2022 12:48 INDICATION: Right lower limb swelling. TECHNIQUE: Grayscale ultrasound images without and with compression and Doppler ultrasound images of the right lower extremity veins were obtained. COMPARISON: None. FINDINGS: The visualized portions of right common femoral vein, profunda (deep) femoral vein, femoral vein, pop liteal vein, peroneal veins, posterior tibial veins, and greater saphenous vein outflow are patent. IMPRESSION: 1. No deep venous thrombosis. Reviewed, dictated and finalized at location B.
--- NOTE | ~2022-01-26 | XR_ITS ---
EXAMINATION: XR chest 2V DATE: 01/26/2022 13:32 INDICATION: Congestive heart failure. Lower extremity edema. TECHNIQUE: Frontal and lateral views of the chest were obtained. COMPARISON: Chest single view 04/13/2021 FINDINGS: Calcified left lung nodules are consistent with old granulomatous disease. There are Cristina B-lines, consistent mild pulmonary edema. No pleural effusion or pneumothorax. Cardiomegaly is noted . There is an old healed right rib fracture. IMPRESSION: 1. Mild pulmonary edema. 2. Cardiomegaly. Reviewed, dictated and finalized at location B.
--- NOTE | 2022-01-26 11:32 | ECG_ITS ---
Measurements Intervals [place] Rate: 66 P: [place]: 0 QRS: -30 QRSD: 97 T: 222 QT: 415 QTc: 435 Interpretive Statements ATRIAL FIBRILLATION BORDERLINE LEFT AXIS DEVIATION [QRS AXIS < -20] NONSPECIFIC ST AND T-WAVE ABNORMALITY COMPARED TO ECG 04/13/2021 13:11:30 NO SIGNIFICANT CHANGES Electronically Signed On 01-26-2022 13:51:49 CDT by Homar Greewnood M.D.
[2022-01-26 11:34] VITALS: BP 191/74; PULSE 66; RESP 19; TEMP 36.7; O2SAT 98
[2022-01-26 11:57] VITALS: BP 163/74; PULSE 61; RESP 20; O2SAT 95
[2022-01-26 11:59] LABS: Basophils Percent Auto 0.3 % (0.2-1.2); Eosinophils Absolute Auto 0.3 K/mm3 (0-0.3); Eosinophils Percent Auto 4.5 % (0-4.4); Hematocrit 39.4 % (37.0-47.0); Hemoglobin 12.6 g/dL (12.0-15.0); Immature Granulocyte Absolute 0.06 K/mm3 (0.00-0.031); Lymphocytes Absolute Auto 1.36 K/mm3 (0.9-3.2); Lymphocytes Percent Auto 22.7 % (18.3-44.2); Mean Corpuscular Hemoglobin 30.7 pg (26-34); Mean Corpuscular Volume 96.1 fl (80-100); Mean Platelet Volume 12.1 fl (7.4-10.4); Monocytes Absolute Auto 0.7 K/mm3 (0.1-0.6); Monocytes Percent Auto 12.2 % (2.6-8.5); Neutrophils Absolute Auto 3.5 K/mm3 (1.3-6.7); Neutrophils Percent Auto 59.3 % (45.5-73.1); Platelet Count Result 126 k/mm3 (150-375); Red Cell Distribution Width 14.7 % (11.5-14.5)
--- NOTE | 2022-01-26 12:08 | ED.GENADULT ---
HPI - General Adult General Chief complaint: Extremity Injury, Lower Stated complaint: ankle swelling Time Seen by Provider: 01/26/22 11:41 History of Present Illness HPI narrative: 86-year-old female history of A. fib congestive heart failure presents to the emergency room for evaluation of swelling to her right lower extremity that has been present for 5 days. Patient is accompanied by her daughter. Family member states that patient has been experiencing some pitting edema to her right foot for 5 days, and is accompanied with localized warmth and tenderness. Denies any injury or trauma to the foot. States is on Eliquis for history of A. fib. Related Data Home Medications Medication Instructions Recorded Confirmed levothyroxine 75 mcg tablet 50 mcg PO DAILY 10/13/20 04/13/21 simvastatin 20 mg tablet 20 mg PO DAILY 10/13/20 04/13/21 trazodone 50 mg tablet 50 mg PO QPM PRN Sleep 10/13/20 04/13/21 meclizine 25 mg tablet 25 mg PO TID PRN Dizziness 04/13/21 04/13/21 Allergies Allergy/AdvReac Type Severity Reaction Status Date / Time No Known Allergies Allergy Verified 01/26/22 11:40 Review of Systems Review of Systems: CONSTITUTIONAL: Denies fever, chills, or sweats. EYES: Denies visual changes, redness, or discharge. ENT: Denies rhinorrhea, congestion, sore throat, or otalgia. CARDIOVASCULAR: Denies chest pain, palpitations, or edema. RESPIRATORY: Denies cough or dyspnea. GASTROINTESTINAL: Denies abdominal pain, nausea, vomiting, or diarrhea. GENITOURINARY: Denies dysuria or hematuria. SKIN: Swelling to her right foot MUSCULOSKELETAL: Denies back pain, joint pain, or myalgia. NEUROLOGIC: Denies headache, numbness, dizziness, or weakness. PSYCHIATRIC: Denies anxiety or depression. 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 EF as low as 20 to 25% in September 2020 but improved to 57% in January 2021. Congestive heart failure Hyperlipidemia Hypothyroidism Surgical History Surgical History History of bilateral cataract extraction History of hysterectomy for benign disease Family History Family History Father Tuberculosis Social History Social History Social History: Surrogate decision maker: Celina Toribio and Leda Farr, daughters. Code status: Full code. Smoking status: Never smoker Alcohol intake: never Substance use: never Substance use type: does not use Additional living arrangements comments: The patient is and lives in her own home in [place]. Additional occupation/education comments: Retired. Exam Narrative: GENERAL: Well-appearing, well-nourished, no physical limitations, and in no acute distress. HEAD: Normocephalic, atraumatic. EYES: Conjunctivae normal, PERRLA and EOMI. CHEST: Clear to auscultation. No respiratory distress. No wheezes rales or rhonchi. HEART: Regular rate and rhythm. No murmur heard. Normal peripheral pulses. EXTREMITIES: Normal range of motion. +1/+2 pitting edema to the right foot with accompanying mild erythema and warmth SKIN: Warm, dry, no rash. No noted wounds NEURO: No focal deficits. Alert and oriented x3. MAEW. CN's II-XI intact bilaterally PSYCH: Cooperative. Normal mood and affect. Course Vital Signs Vital signs: Vital Signs Temperature 36.7 C 01/26/22 11:34 Pulse Rate 66 01/26/22 11:34 Respiratory Rate 19 01/26/22 11:34 Blood Pressure 191/74 H 01/26/22 11:34 Pulse Oximetry 98 01/26/22 11:34 Oxygen Delivery Room Air 01/26/22 11:34 Temperature 36.7 C 01/26/22 11:34 Pulse Rate 65 01/26/22 13:01 Respiratory Rate 19 01/26/22 13:01 Blood Pressure 190/88 H 01/26/22 13:01 Pulse Oximetry 96 01/26/22 13:01 Oxygen D
[2022-01-26 12:11] LABS: INR 1.2; Prothrombin Time 14.9 Seconds (11.1-14.7)
[2022-01-26 12:12] LABS: Partial Thromboplastin Time 29.5 SECONDS (22.3-36.8)
[2022-01-26 12:20] LABS: Lactic Acid Reflex 1.5 mmol/L (0.7-2.0)
[2022-01-26 12:22] LABS: Alanine Aminotransferase 17 U/L (6-35); Albumin Level 3.9 g/dL (3.5-5.1); Alkaline Phosphatase 106 U/L (38-126); Anion Gap 11 mmol/L (8-16); Aspartate Amino Transferase 23 U/L (14-36); Bilirubin,Total 0.8 mg/dL (0.2-1.3); Blood Urea Nitrogen 15 mg/dL (7-17); Calcium 8.5 mg/dL (8.4-10.2); Carbon Dioxide 23 mmol/L (22-30); Chloride 107 mmol/L (98-107); Estimated CRCL calculation 34 ml/min; Estimated Glomerular Filt Rate 59; Glucose 123 mg/dL (65-110); Sodium 141 mmol/L (137-145)
[2022-01-26 12:34] LABS: NT Pro B Type Natriuretic Pept 1840 pg/mL (5-100); Troponin I < 0.012 ng/mL (0.000-0.034)
--- NOTE | 2022-01-26 12:34 | PC.NURSE ---
Pt to U/S via stretcher at this time.
[2022-01-26 12:49] LABS: D Dimer 0.45 ug/mL (<0.48)
[2022-01-26 13:01] VITALS: BP 190/88; PULSE 65; RESP 19; O2SAT 96
--- NOTE | 2022-01-26 13:32 | PC.NURSE ---
Pt to XRAY via stretcher at this time.
[2022-01-26 13:52] LABS: Thyroid Stimulating Hormone 0.654 uIU/mL (0.465-4.680)
[2022-01-26 13:59] VITALS: BP 156/85; PULSE 61; RESP 18; O2SAT 96
[2022-01-26] MEDS: FUROSEMIDE INJ 40 MG/4 ML VIAL IV PUSH (13:59)
== END 2022-01-26 14:10 | disposition home or self-care (01) ==
PROVIDERS: Emergency Medicine; Emergency Provider Nurse Practitioner Family; PCP Internal Medicine
DX: I50.9 Heart failure, unspecified (principal); I48.91 Unspecified atrial fibrillation; E78.5 Hyperlipidemia, unspecified; E03.9 Hypothyroidism, unspecified; I51.7 Cardiomegaly; Z79.01 Long term (current) use of anticoagulants
CPT/HCPCS: 36415; 71046; 80053; 83605; 83880; 84443; 84484; 85025; 85380; 85610; 85730; 93005; 93971; 96374; 99284; J1940

== ENCOUNTER 2022-08-01 08:29 | Observation (INO) | payer MEDICARE, SELFPAY ==
[2022-08-01] VITALS (9 sets, daily range): BP systolic 100–184; BP diastolic 75–97; PULSE 60–105; RESP 15–21; TEMP 36.6–36.7; O2SAT 95–100
--- NOTE | ~2022-08-01 | CT_ITS ---
EXAMINATION: CT brain wo con DATE: 08/01/2022 10:20 INDICATION: Altered mental status. Headache. TECHNIQUE: Computed tomography (CT) of the head was performed without intravenous contrast. The mA wa s adjusted according to patient size. Iterative reconstruction technique was employed. The dose-lengt h product was 605.33 mGy-cm. COMPARISON: None FINDINGS: There is an old infarct in the right caudate nucleus. There is an old infarct in the left c audate nucleus. There is an infarct in the left thalamus. There is an old infarct in the left tempora l lobe. There are scattered areas of low attenuation in the cerebral white matter, which is within no rmal limits for the patient's age. There is no intracranial hemorrhage, acute infarction, or abnormal intracranial mass lesion. The ventricles are normal in size. There is mucosal thickening in the para nasal sinuses. There are likely changes of ocular lens replacement surgeries. The mastoid air cells a re normal. IMPRESSION: 1. Age-indeterminate infarct in the left thalamus. 2. 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 Reviewed, dictated and finalized at location A.
--- NOTE | ~2022-08-01 | CT_ITS ---
EXAMINATION: CTA brain carotid DATE: 08/01/2022 11:44 INDICATION: Stroke. Weakness. TECHNIQUE: Computed tomographic angiography (CTA) of the head was performed with 100 mL Omnipaque-350 intravenous contrast. CTA of the neck was performed with intravenous contrast. Automated exposure co ntrol and iterative reconstruction technique were employed. The dose-length product was 923.42 mGy-cm . Maximum intensity projection and volume rendered 3D-reconstructions were created by the [employer] t on a separate workstation. COMPARISON: Head CT 08/01/2022 FINDINGS: HEAD CTA: There are old infarcts involving the left temporal lobe and bilateral caudate nuclei. There are scattered areas of low attenuation in the cerebral white matter, which is within normal limits f or the patient's age. There is no intracranial hemorrhage, acute infarction, or abnormal intracranial mass lesion. There are likely changes of ocular lens replacement surgeries. The paranasal sinuses a re clear. The mastoid air cells are normal. The vertebral arteries are codominant. There is no signif icant stenosis of basilar artery or the posterior cerebral arteries. There is plaque in the intracran ial internal carotid arteries without significant stenosis. There is a 2 mm saccular aneurysm of comm unicating segment of right internal carotid artery. There is no significant stenosis of the anterior or middle cerebral arteries. Anterior communicating artery is normal. The posterior communicating art eries are normal. NECK CTA: There is mild scarring at the lung apices. There is mild emphysema. There are no pathologic ally enlarged lymph nodes. There is no significant stenosis of the vertebral arteries. There is plaqu e in the proximal internal carotid arteries. There is 0% stenosis of the proximal right internal [place] tid artery relative to normal distal artery lumen diameter (NASCET criteria). There is 0% stenosis of the proximal left internal carotid artery relative to normal distal artery lumen diameter. There is severe cervical spondylosis. IMPRESSION: 1. 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 2. 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 3. 0% stenosis of the proximal internal carotid arteries relative to normal distal artery lumen diame ters (NASCET criteria). Reviewed, dictated and finalized at location A. IMPRESSION: 1. 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 2. 2 mm saccular aneurysm of communicating segment of right internal carotid ar [place]. 3. 0% stenosis of the proximal internal carotid arteries relative to normal dis deepthi artery lumen diameters (NASCET criteria).
--- NOTE | ~2022-08-01 | XR_ITS ---
XR chest 2V 08/01/2022 10:28 Indication: Shortness of breath and chest pain Procedure: AP and lateral views of the chest Comparison: 01/26/2022 Findings: Cardiomegaly with mild interstitial edema. No significant effusion. The lungs are hyperinfl ated which is consistent with, but not diagnostic of chronic obstructive pulmonary disease. No pneumo thorax. No acute osseous abnormality. There is atherosclerosis and ectasia of the aorta. There is a c hronic wedge compression fracture of an upper lumbar vertebra. Impression: 1: Cardiomegaly with mild interstitial edema. Reviewed, dictated and finalized at location B. Impression: 1: Cardiomegaly with mild interstitial edema.
--- NOTE | ~2022-08-01 | MR_ITS ---
EXAMINATION: MR brain/brain stem wo/w con DATE: 08/02/2022 08:03 INDICATION: Cerebrovascular accident. TECHNIQUE: Magnetic resonance imaging (MRI) of the brain and brainstem was performed without and with 11 mL MultiHance intravenous contrast. COMPARISON: Head CT 08/01/2022 FINDINGS: There is no intracranial hemorrhage, acute infarction, or abnormal intracranial mass lesion . There are old infarcts in the left temporal lobe and bilateral caudate nuclei. There are scattered areas of nonspecific increased T2-weighted signal intensity in the cerebral white matter, which is wi thin normal limits for the patient's age. The ventricles are normal in size. There is mild mucosal th ickening in the ethmoid sinuses. There are likely changes of ocular lens replacement surgeries. The m astoid air cells are normal. IMPRESSION: 1. 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 Reviewed, dictated and finalized at location A.
--- NOTE | 2022-08-01 09:43 | ECG_ITS ---
Measurements Intervals [place] Rate: 73 P: [place]: 0 QRS: -35 QRSD: 93 T: 6 QT: 445 QTc: 491 Interpretive Statements ATRIAL FIBRILLATION MARKED LEFT AXIS DEVIATION [QRS AXIS < -30] MINIMAL VOLTAGE CRITERIA FOR LVH, CONSIDER NORMAL VARIANT [MEETS CRITERIA IN ONE OF: R(aVL), S(V1), R(V5), R(V5/V6)+S(V1)] NONSPECIFIC ST & T-WAVE ABNORMALITY COMPARED TO ECG 01/26/2022 11:38:25 NO SIGNIFICANT CHANGES Electronically Signed On 08-01-2022 18:11:14 CDT by Tejal Mcconnell M.D.
--- NOTE | 2022-08-01 09:47 | ED.RECABL ---
HPI - Recheck/Abnormal Lab/Rx General Chief Complaint: Recheck/Abnormal Lab/Rx <Jossy Jenkins PA-C - Last Filed: 08/01/22 15:39> Stated Complaint: htn, fair, weak, n/v <Jossy Jenkins PA-C - Last Filed: 08/01/22 15:39> Time Seen by Provider: 08/01/22 09:30 <Jossy Jenkins PA-C - Last Filed: 08/01/22 15:39> History of Present Illness HPI narrative: 87-year-old female with history of atrial fibrillation on eliqius, hypertension, cardiomyopathy with recovered EF, hypothyroidism and hyperlipidemia here for evaluation with her daughter due to concerns over generalized weakness, shortness of breath, headache x2 days. Patient states that she has become winded with minimal exertion and believes that she overdid it over the weekend while preparing for Easter. She has had a tightness in the center of her chest that feels like gas pain , patient states this has been present for several years; was admitted upon onset in 2020 and thought to be of GI origin although cardiac etiology not excluded as patient declined catheterization. She reports positional dizziness and lightheadedness, not better after taking meclizine and a diffuse frontal headache. Daughter brought patient to the ED due to concerns over elevated blood pressure rates this morning despite compliance with her antihypertensives. Denies any abdominal pain, vomiting, burning with urination, fevers or chills. Her slipman is Dr. Greenwood, was recently taken off digoxin due to bradycardia. <Jossy Jenkins PA-C - Last Filed: 08/01/22 15:39> Related Data Home Medications: Home Medications Medication Instructions Recorded Confirmed levothyroxine 75 mcg tablet 50 mcg PO DAILY 10/13/20 08/01/22 simvastatin 20 mg tablet 20 mg PO DAILY 10/13/20 08/01/22 meclizine 25 mg tablet 25 mg PO TID PRN Dizziness 04/13/21 08/01/22 Vitamin D3 2,500 unit PO DAILY 08/01/22 08/01/22 cyanocobalamin (vitamin B-12) 2,500 mcg PO DAILY 08/01/22 08/01/22 2,500 mcg tablet <Jossy Jenkins PA-C - Last Filed: 08/01/22 15:39> Allergies/Adverse Reactions: Allergies Allergy/AdvReac Type Severity Reaction Status Date / Time No Known Allergies Allergy Verified 08/01/22 13:41 <Jossy Jenkins PA-C - Last Filed: 08/01/22 15:39> Review of Systems Review of Systems: Gen: Reports generalized weakness and dizziness Eyes: Denies eye pain or visual change ENT: Denies congestion Respiratory: Reports cough and shortness of breath CV reports chest pain GI: Denies abdominal pain nausea, emesis or diarrhea denies burning, urgency, frequency or hematuria Musculoskeletal: Denies back pain or muscle pain Neuro: Denies numbness, tingling, weakness or focal weakness Skin: Denies rash Except as documented, all other systems reviewed and negative <Jossy Jenkins PA-C - Last Filed: 08/01/22 15:39> PMFSH Past Medical History Medical History: Medical History (Updated 08/01/22 @ 16:38 by Shreya Orr NP) Atrial fibrillation 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 EF as low as 20 to 25% in September 2020 but improved to 57% in January 2021. Congestive heart failure Hyperlipidemia Hypertension Hypothyroidism <Jossy Jenkins PA-C - Last Filed: 08/01/22 15:39> Surgical History Surgical History: Surgical History History of bilateral cataract extraction History of hysterectomy for benign disease <Jossy Jenkins PA-C - Last Filed: 08/01/22 15:39> Family History Family History: Family History Father Tuberculosis <Jossy Jenkins PA-C - Last Filed: 08/01/22 15:39> Social History Social History: Social History (Updated 08/01/22 @ 16:22 by Shreya Orr NP) Social History: Surrogate decision maker: Celina Toribio and Leda Farr, daughters. She has 3
[2022-08-01 10:08] LABS: Basophils Percent Auto 0.3 % (0.2-1.2); Eosinophils Absolute Auto 0.2 K/mm3 (0-0.3); Eosinophils Percent Auto 2.7 % (0-4.4); Hematocrit 42.1 % (37.0-47.0); Hemoglobin 13.6 g/dL (12.0-15.0); Immature Granulocyte Absolute 0.02 K/mm3 (0.00-0.031); Immature Granulocyte Percent A 0.3 % (0-0.5); Lymphocytes Absolute Auto 0.98 K/mm3 (0.9-3.2); Lymphocytes Percent Auto 16.3 % (18.3-44.2); Mean Corpuscular HGB Conc 32.3 g/dl (32-36); Mean Corpuscular Hemoglobin 29.6 pg (26-34); Mean Corpuscular Volume 91.7 fl (80-100); Mean Platelet Volume 11.8 fl (7.4-10.4); Monocytes Absolute Auto 0.5 K/mm3 (0.1-0.6); Monocytes Percent Auto 8.5 % (2.6-8.5); Neutrophils Absolute Auto 4.3 K/mm3 (1.3-6.7); Neutrophils Percent Auto 71.9 % (45.5-73.1); Platelet Count Result 113 k/mm3 (150-375); Red Blood Count 4.59 M/mm3 (4.2-5.4); Red Cell Distribution Width 14.2 % (11.5-14.5)
[2022-08-01 10:19] LABS: INR 1.3; Prothrombin Time 15.5 Seconds (11.1-14.7)
[2022-08-01 10:20] LABS: Partial Thromboplastin Time 29.3 SECONDS (22.3-36.8)
[2022-08-01 10:21] LABS: Alanine Aminotransferase 24 U/L (6-35); Albumin Level 4.2 g/dL (3.5-5.1); Alkaline Phosphatase 97 U/L (38-126); Anion Gap 6 mmol/L (8-16); Aspartate Amino Transferase 31 U/L (14-36); Bilirubin,Total 1.1 mg/dL (0.2-1.3); Blood Urea Nitrogen 14 mg/dL (7-17); Calcium 8.5 mg/dL (8.4-10.2); Carbon Dioxide 24 mmol/L (22-30); Chloride 107 mmol/L (98-107); Estimated CRCL calculation 39 ml/min; Estimated Glomerular Filt Rate > 60; Glucose 114 mg/dL (65-110); Magnesium 2.4 mg/dL (1.6-2.3); Potassium 4.4 mmol/L (3.4-5.0); Sodium 137 mmol/L (137-145)
[2022-08-01 10:22] LABS: Lipase 207 U/L (23-300)
[2022-08-01 10:33] LABS: NT Pro B Type Natriuretic Pept 2640 pg/mL (19.9-100); Troponin I < 0.012 ng/mL (0.000-0.034)
[2022-08-01 10:47] LABS: Influenza A QL RT-PCR Negative (Negative); Influenza B QL RT-PCR Negative (Negative); SARS-CoV-2 RNA PCR Negative
[2022-08-01 11:13] LABS: Thyroid Stimulating Hormone Reflex < 0.015 uIU/mL (0.465-4.68)
[2022-08-01] MEDS: FUROSEMIDE INJ 40 MG/4 ML VIAL IV PUSH (11:51)
[2022-08-01 12:09] LABS: Free T4 Free Thyroxine Reflex 1.68 ng/dL (0.78-2.19)
--- NOTE | 2022-08-01 12:45 | PM.IMHP ---
H&P: HPI History of Present Illness Date/Time: 08/01/22 12:45 Chief Complaint: Abnormal labs Narrative: This is an 87-year-old female patient who has a history of atrial fibrillation on Eliquis, hypertension, congestive heart failure and cardiomyopathy. The patient has generalized weakness and she has been short of breath for last 2 days. Patient has been having difficulty laying flat. The patient had a very restless night she was sleeping in the recliner most of the night. She felt like she had chest congestion which was not relieved. She has dizziness and lightheadedness. The patient's blood pressure was elevated today as well. No nausea vomiting or diarrhea. Patient recently saw her yardage control operator forming was Dr. Sylvester and was taken off of her digoxin due to bradycardia. According to the daughter the patient was taken off the Lasix as well. The patient has had these complaints of chest tightness back in 2020 and she declined cardiac catheterization at that time. Head and neck CT was read as the followingOld infarcts involving the left temporal lobe and bilateral caudate nuclei. 2. 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 3. 0% stenosis of the proximal internal carotid arteries relative to normal distal artery lumen diameters (NASCET criteria). Chest x-ray was read as cardiomegaly with mild interstitial edema. Head CT was read as age indeterminate infarct in the left thalamus. 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 The patient was given Lasix in the emergency room. The patient is being admitted to observation status on the date of service of 08/01/2022. Review of Systems Review of Systems: All systems reviewed & are unremarkable except as noted in HPI and below Constitutional: Constitutional: Reports as per HPI and Reports no additional constitutional complaints Eyes: Eyes: Reports as per HPI and Reports no additional eye complaints ENT: Reports system reviewed and no additional complaints, except as documented and Reports Normal hearing present Cardiovascular: Cardiovascular: Reports no additional cardiovascular complaints Respiratory: Respiratory: Reports no additional respiratory complaints and Reports no additional respiratory complaints Gastrointestinal: Gastrointestinal: Reports as per HPI and Reports no additional gastrointestinal complaints Musculoskeletal: Musculoskeletal: Reports no additional musculoskeletal complaints Integumentary/Breasts: Skin/Breast: Reports system reviewed and no additional complaints, except as docu and Reports as per HPI Neurologic: Reports system reviewed and no additional complaints, except as documented, Reports as per HPI and Reports Normal hearing present Psychiatric: Psychiatric: Reports no additional psychiatric complaints and Reports as per HPI Endocrine: Endocrine: Reports no additional endocrine complaints Hematologic/Lymphatic: Hematologic/Lymphatic: Reports no additional hematologic/lymphatic complaints Allergic/Immunologic: Allergic/Immunologic: Reports no additional allergic/immunologic complaints [facility] Past Medical History Medical History (Updated 08/01/22 @ 16:38 by Shreya Orr NP) Atrial fibrillation 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 EF as low as 20 to 25% in September 2020 but improved to 57% in January 2021. Congestive heart failure Hyperlipidemia Hypertension Hypothyroidism Surgical History Surgical History History of bilateral cataract extraction History of hysterectomy for benign disease Family History Family History Father Tuberculosis Social History Social History (Updated 08/01/22 @ 16:22 by Shreya Orr NP) Social History: Surrogate decision maker: Celina Toribio and Leda Farr, daughters. She has 3 children, 2 girls and a boy. Her daughter l
[2022-08-01 13:06] LABS: Total Triiodothyronine (T3) 1.12 NG/ML (0.97-1.69)
--- NOTE | 2022-08-01 13:27 | ADMGEN ---
This patient, Renata Brown, was admitted to 2 Medical Room 240-. Patient/family oriented to hospital policies and general routines including ID bracelet, bed and alarms, visiting hours, pain management, procedures, bathroom and other care routines, personal items, smoking policy, room service/diet, and visiting hours. Information on how to activate the Rapid Response Team has been discussed. Patient/Family are encouraged to report perceived risks to care and to ask questions if they do not understand what they are told or what they should do.
[2022-08-01 15:16] LABS: Troponin I < 0.012 ng/mL (0.000-0.034)
[2022-08-01] MEDS: ACETAMINOPHEN 325 MG TABLET 650 MG PO (18:23)
[2022-08-01] MEDS: APIXABAN 2.5 MG TABLET PO (20:24)
[2022-08-02] VITALS: PULSE 81
--- NOTE | 2022-08-02 | ECHO_ITS ---
Patient Info Name: Renata Brown Age: 87 years : 1935 Gender: Female Ht: 65 in Wt: 125 lbs BSA: 1.61 m2 HR: 67 bpm BP: 148 / 68 mmHg Technical Quality: Fair Exam Date: 08/02/2022 10:32 AM Exam Location: [facility] Pulmonary Exam Room: 240 Patient Status: Outpatient Admit Date: 08/01/2022 Staff Ordering Physician: Adolfo Smith Doubling Machine Operator: Charlotte Carias RDCS Attending Provider: Juan Rizo MD Referring Physician: Luis TOURE; Exam Type: CA echo doppler w bubble study Study Info Indications - pulmonary edema possible cva Complete two-dimensional, color flow and Doppler transthoracic echocardiogram is performed with agitated saline. Contrast/Agitated Saline Contrast/Ag. Saline: Agitated Saline Amount: 20.00 ml Existing IV Access: Yes IV Access Condition: patent with no signs of infiltration Summary 1. Left ventricular chamber dimension is normal. 2. Left ventricular systolic function is normal, estimated at 50-55%. 3. There is moderately increased left ventricular wall thickness. 4. Left atrial chamber dimension is severely enlarged. 5. Right atrial chamber dimension is moderately enlarged. 6. Intact interatrial septum visualized by color flow and agitated saline imaging. Negative bubble study. 7. There is mild aortic valve regurgitation. 8. There is mild mitral valve regurgitation. 9. There is mild tricuspid valve regurgitation. 10. 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 11. There is small anterior pericardial effusion. Left Ventricle Left ventricular chamber dimension is normal. Left ventricular systolic function is normal, estimated at 50-55%. There is moderately increased left ventricular wall thickness. Right Ventricle Right ventricular chamber dimension is normal. Left Atria Left atrial chamber dimension is severely enlarged. Right Atria Right atrial chamber dimension is moderately enlarged. Atrial Septum Intact interatrial septum visualized by color flow and agitated saline imaging. Negative bubble study. Aortic Valve The aortic valve is trileaflet. There is mild aortic valve sclerosis. There is no aortic valve stenosis. There is mild aortic valve regurgitation. Pulmonic Valve The pulmonic valve is not well visualized. Mitral Valve There is mild mitral valve regurgitation. The mitral valve annulus is mildly calcified. Tricuspid Valve There is mild tricuspid valve regurgitation. Pericardium/Pleural There is small anterior pericardial effusion. Inferior Vena Cava Normal inferior vena cava with >50% collapse upon inspiration consistent with normal right atrial pressure, 3 mmHg. 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 Left Ventricular Outflow Tract Name Value Normal LVOT 2D LVOT Diameter 2.0 cm LVOT Doppler LVOT Peak Gradient 4 mmHg LVOT Mean Gradient 2 mmHg LVOT VTI 17 cm LVOT VTI/AV VTI Ratio 0.7 LVOT Stroke Volume
[2022-08-02 03:15] VITALS: BP 148/68; PULSE 70; RESP 18; TEMP 36.4; O2SAT 98
[2022-08-02 04:00] VITALS: PULSE 67
[2022-08-02] MEDS: LEVOTHYROXINE SODIUM 50 MCG TABLET PO (06:09)
[2022-08-02 06:44] LABS: Basophils Percent Auto 0.5 % (0.2-1.2); Eosinophils Absolute Auto 0.2 K/mm3 (0-0.3); Eosinophils Percent Auto 2.8 % (0-4.4); Hematocrit 44.6 % (37.0-47.0); Hemoglobin 14.2 g/dL (12.0-15.0); Immature Granulocyte Absolute 0.02 K/mm3 (0.00-0.031); Immature Granulocyte Percent A 0.3 % (0-0.5); Lymphocytes Absolute Auto 1.41 K/mm3 (0.9-3.2); Lymphocytes Percent Auto 23.4 % (18.3-44.2); Mean Corpuscular HGB Conc 31.8 g/dl (32-36); Mean Corpuscular Hemoglobin 29.8 pg (26-34); Mean Corpuscular Volume 93.7 fl (80-100); Mean Platelet Volume 12.7 fl (7.4-10.4); Monocytes Absolute Auto 0.7 K/mm3 (0.1-0.6); Monocytes Percent Auto 11.9 % (2.6-8.5); Neutrophils Absolute Auto 3.7 K/mm3 (1.3-6.7); Neutrophils Percent Auto 61.1 % (45.5-73.1); Platelet Count Result 111 k/mm3 (150-375); Red Blood Count 4.76 M/mm3 (4.2-5.4)
[2022-08-02 06:58] LABS: Lactic Acid Reflex 0.9 mmol/L (0.7-2.0)
[2022-08-02 07:05] LABS: Alanine Aminotransferase 21 U/L (6-35); Albumin Level 3.8 g/dL (3.5-5.1); Alkaline Phosphatase 76 U/L (38-126); Anion Gap 5 mmol/L (8-16); Aspartate Amino Transferase 27 U/L (14-36); Bilirubin,Total 1.4 mg/dL (0.2-1.3); Blood Urea Nitrogen 18 mg/dL (7-17); Calcium 8.3 mg/dL (8.4-10.2); Carbon Dioxide 27 mmol/L (22-30); Chloride 104 mmol/L (98-107); Estimated CRCL calculation 35 ml/min; Estimated Glomerular Filt Rate 59; Glucose 98 mg/dL (65-110); Magnesium 2.5 mg/dL (1.6-2.3); Potassium 3.7 mmol/L (3.4-5.0); Sodium 136 mmol/L (137-145)
--- NOTE | 2022-08-02 07:07 | P.PNIM_ITS ---
Progress Note: A&P Assessment and Plan (1) Congestive heart failure: Code(s): I50.9 - Heart failure, unspecified Status: Acute Assessment and Plan: * Presented with complaints of shortness of breath, inability to lay flat, and chest congestion * Chest x-ray was read as cardiomegaly with mild interstitial edema * Most likely acute on chronic diastolic heart failure in acute exacerbation * Increase to 40mg IV BID * Echo * Continue home metoprolol 100mg PO daily * BNP was noted to be 2640 * Trend urine output * Daily weights * braulio sriniumer (2) Infarction of left thalamus: Code(s): I63.81 - Other cerebral infarction due to occlusion or stenosis of small artery Status: Acute Assessment and Plan: * Age indeterminate infarction noted on the head CT * CTA shows 0% stenosis bilaterally, old infarcts noted in the left temporal lobe and bilateral caudate nuclei * MRI ordered * Add aspirin * Lipid panel * Continue Eliquis * Consider neurology if acute infarct noted * PT OT evaluation with greatly be appreciated (3) Hypertension: Code(s): I10 - Essential (primary) hypertension Status: Acute Assessment and Plan: * current BP is 148/68 * Continue metoprolol * Lasix currently on board * Trend BP * Adjust medications as indicated (4) Atrial fibrillation: Code(s): I48.91 - Unspecified atrial fibrillation Status: Acute Assessment and Plan: * EKG indicated chronic afib with rate of 73 * Trend heart rate * Continue metoprolol and Eliquis * Trend heart rate * Tele monitor for now * add aspirin (5) Hypothyroidism: Code(s): E03.9 - Hypothyroidism, unspecified Status: Acute Assessment and Plan: * Continue with levothyroxine * TSH 0.015, T3 1.12, T4 1.68 * Stable (6) Hyperlipidemia: Code(s): E78.5 - Hyperlipidemia, unspecified Status: Acute Assessment and Plan: * Continue with simvastatin * Lipid panel * Increase as indicated Time Spent With Patient Time: 51 minutes Time with patient: Greater than 35 minutes Subjective Date/time seen: 08/02/22 07:07 Interval history: 08/02/22 08/01/22? 12:45 This is an 87-year-old female patient who has a history of atrial fibrillation on Eliquis, hypertension, congestive heart failure and cardiomyopathy.? The patient has generalized weakness and she has been short of breath for last 2 days.? Patient has been having difficulty laying flat.? The patient had a very restless night she was sleeping in the recliner most of the night.? She felt like she had chest congestion which was not relieved.? She has dizziness and lightheadedness.? The patient's blood pressure was elevated today as well.? No nausea vomiting or diarrhea.? Patient recently saw her corrections sergeant was Dr. Sylvester and was taken off of her digoxin due to bradycardia.? According to the daughter the patient was taken off the Lasix as well.? The patient has had these complaints of chest tightness back in 2020 and she declined cardiac catheterization at that time. Review of Systems Review of Systems: All systems reviewed & are unremarkable except as noted in HPI and below Exam
--- NOTE | 2022-08-02 07:07 | PM.IMPN ---
Progress Note: A&P Assessment and Plan (1) Congestive heart failure: Code(s): I50.9 - Heart failure, unspecified Status: Acute Assessment and Plan: Presented with complaints of shortness of breath, inability to lay flat, and chest congestion Chest x-ray was read as cardiomegaly with mild interstitial edema Most likely acute on chronic diastolic heart failure in acute exacerbation Increase to 40mg IV BID Echo Continue home metoprolol 100mg PO daily BNP was noted to be 2640 Trend urine output Daily weights braulio desai (2) Infarction of left thalamus: Code(s): I63.81 - Other cerebral infarction due to occlusion or stenosis of small artery Status: Acute Assessment and Plan: Age indeterminate infarction noted on the head CT CTA shows 0% stenosis bilaterally, old infarcts noted in the left temporal lobe and bilateral caudate nuclei MRI ordered Add aspirin Lipid panel Continue Eliquis Consider neurology if acute infarct noted PT OT evaluation with greatly be appreciated (3) Hypertension: Code(s): I10 - Essential (primary) hypertension Status: Acute Assessment and Plan: current BP is 148/68 Continue metoprolol Lasix currently on board Trend BP Adjust medications as indicated (4) Atrial fibrillation: Code(s): I48.91 - Unspecified atrial fibrillation Status: Acute Assessment and Plan: EKG indicated chronic afib with rate of 73 Trend heart rate Continue metoprolol and Eliquis Trend heart rate Tele monitor for now add aspirin (5) Hypothyroidism: Code(s): E03.9 - Hypothyroidism, unspecified Status: Acute Assessment and Plan: Continue with levothyroxine TSH 0.015, T3 1.12, T4 1.68 Stable (6) Hyperlipidemia: Code(s): E78.5 - Hyperlipidemia, unspecified Status: Acute Assessment and Plan: Continue with simvastatin Lipid panel Increase as indicated Time Spent With Patient Time: 51 minutes Time with patient: Greater than 35 minutes Subjective Date/time seen: 08/02/22 07:07 Interval history: 08/02/22 08/01/22? 12:45 This is an 87-year-old female patient who has a history of atrial fibrillation on Eliquis, hypertension, congestive heart failure and cardiomyopathy.? The patient has generalized weakness and she has been short of breath for last 2 days.? Patient has been having difficulty laying flat.? The patient had a very restless night she was sleeping in the recliner most of the night.? She felt like she had chest congestion which was not relieved.? She has dizziness and lightheadedness.? The patient's blood pressure was elevated today as well.? No nausea vomiting or diarrhea.? Patient recently saw her consumer product advisor was Dr. Sylvester and was taken off of her digoxin due to bradycardia.? According to the daughter the patient was taken off the Lasix as well.? The patient has had these complaints of chest tightness back in 2020 and she declined cardiac catheterization at that time. Review of Systems Review of Systems: All systems reviewed & are unremarkable except as noted in HPI and below Exam Narrative: General: well-nourished, well-appearing 87-year-old female, sitting up in bed, comfortable, NARD Neuro: awake, alert and oriented x4, speech clear, no focal neuro deficits noted HEENMT: normocephalic, atraumatic, EOMI, sclerae anicteric, moist oral mucosa Respiratory: Clear to auscultation bilaterally without crackles, rhonchi or wheezes, nonlabored breathing Cardio: regular rate, regular rhythm with S1-S2 Abdomen: nondistended, normoactive bowel sounds, soft, nontender to palpation Extremities: no edema, erythema, or tenderness to palpation, DP pulses 2+ bilaterally Skin: no rashes or lesions, warm and dry Psych: appropriate mood and affect, judgment and
[2022-08-02 08:16] LABS: Thyroid Stimulating Hormone Reflex 0.463 uIU/mL (0.465-4.68)
[2022-08-02] MEDS: CYANOCOBALAMIN 500 MCG TABLET 2500 MCG PO (09:07)
[2022-08-02] MEDS: CHOLECALCIFEROL 1,000 UNITS TABLET 2000 UNITS PO (09:07)
[2022-08-02] MEDS: APIXABAN 2.5 MG TABLET PO (09:07)
[2022-08-02 09:08] VITALS: PULSE 90
[2022-08-02] MEDS: METOPROLOL SUCCINATE EXT REL 100 MG TABCR PO (09:08)
[2022-08-02] MEDS: FUROSEMIDE INJ 40 MG/4 ML VIAL IV PUSH (09:08)
[2022-08-02] MEDS: SIMVASTATIN 20 MG TABLET PO (09:09)
[2022-08-02 10:01] LABS: Cholesterol 134 mg/dL (0-200); HDL Direct 44 mg/dL; Triglycerides 114 mg/dL (<150)
[2022-08-02 10:14] LABS: LDL Cholesterol Direct 70 mg/dL
[2022-08-02 10:54] LABS: Free T4 Free Thyroxine Reflex 1.53 ng/dL (0.78-2.19)
--- NOTE | 2022-08-02 11:30 | P.DS_ITS ---
DS: Admitting Diagnosis Discharge Date 08/02/22 1130 Admitting Diagnosis CHF exacerbation DS: Discharge Diagnosis Discharge Diagnosis (1) Congestive heart failure: Code(s): I50.9 - Heart failure, unspecified Status: Acute Assessment and Plan: * Presented with complaints of shortness of breath, inability to lay flat, and chest congestion * Chest x-ray was read as cardiomegaly with mild interstitial edema * Most likely acute on chronic diastolic heart failure in acute exacerbation * Increase to 40mg IV BID * Echo pending read, will call her with results * Continue home metoprolol 100mg PO daily * BNP was noted to be 2640 * Trend urine output * Daily weights * braulio lloyd (2) Infarction of left thalamus: Code(s): I63.81 - Other cerebral infarction due to occlusion or stenosis of small artery Status: Acute Assessment and Plan: * Age indeterminate infarction noted on the head CT * CTA shows 0% stenosis bilaterally, old infarcts noted in the left temporal lobe and bilateral caudate nuclei * MRI nly showed old infarct * Add aspirin * Lipid panel cholesterol 134, triglycerides 114, LDL 70, HDL 44 * Continue Eliquis * Consider neurology if acute infarct noted * PT OT evaluation with greatly be appreciated (3) Hypertension: Code(s): I10 - Essential (primary) hypertension Status: Acute Assessment and Plan: * current BP is 148/68 * Continue metoprolol * Lasix currently on board * Trend BP * Adjust medications as indicated (4) Atrial fibrillation: Code(s): I48.91 - Unspecified atrial fibrillation Status: Acute Assessment and Plan: * EKG indicated chronic afib with rate of 73 * Trend heart rate * Continue metoprolol and Eliquis * Trend heart rate * Tele monitor for now * add aspirin (5) Hypothyroidism: Code(s): E03.9 - Hypothyroidism, unspecified Status: Acute Assessment and Plan: * Continue with levothyroxine * TSH 0.015, T3 1.12, T4 1.68 * Stable (6) Hyperlipidemia: Code(s): E78.5 - Hyperlipidemia, unspecified Status: Acute Assessment and Plan: * Continue with simvastatin * Lipid panel * Increase as indicated DS: Summary Hospital Course Hospital Course: Patient 87-year-old female with a past medical history atrial fibrillation, cardio myopathy, congestive heart failure, hypertension, hyperlipidemia hypothyroidism who presented to the ED with complaints of shortness of breath, headache, generalized weakness for last 2 days. Upon arrival to the ED patient was noted to have vascular congestion with cardiomegaly and interstitial edema. Head CT showed some old infarcts along with the MRI. CTA stated 0% stenosis bilaterally. Likes were given in the ED and has been continued on the floor. Patient did diurese well is not complaining of any chest pain, shortness a breath, nausea, vomiting, diarrhea or constipation. Patient is lightheaded and dizzy however this is chronic as she does take meclizine in the morning at night. Patient also sleeps in a recliner and states that is pretty normal for her as well her headache has resolved. Blood pressure is more stable. Daughter was in the room and all results have been reviewed. Echo was performed however
--- NOTE | 2022-08-02 11:30 | PM.DS ---
DS: Admitting Diagnosis Discharge Date 08/02/22 1130 Admitting Diagnosis CHF exacerbation DS: Discharge Diagnosis Discharge Diagnosis (1) Congestive heart failure: Code(s): I50.9 - Heart failure, unspecified Status: Acute Assessment and Plan: Presented with complaints of shortness of breath, inability to lay flat, and chest congestion Chest x-ray was read as cardiomegaly with mild interstitial edema Most likely acute on chronic diastolic heart failure in acute exacerbation Increase to 40mg IV BID Echo pending read, will call her with results Continue home metoprolol 100mg PO daily BNP was noted to be 2640 Trend urine output Daily weights braulio desai (2) Infarction of left thalamus: Code(s): I63.81 - Other cerebral infarction due to occlusion or stenosis of small artery Status: Acute Assessment and Plan: Age indeterminate infarction noted on the head CT CTA shows 0% stenosis bilaterally, old infarcts noted in the left temporal lobe and bilateral caudate nuclei MRI nly showed old infarct Add aspirin Lipid panel cholesterol 134, triglycerides 114, LDL 70, HDL 44 Continue Eliquis Consider neurology if acute infarct noted PT OT evaluation with greatly be appreciated (3) Hypertension: Code(s): I10 - Essential (primary) hypertension Status: Acute Assessment and Plan: current BP is 148/68 Continue metoprolol Lasix currently on board Trend BP Adjust medications as indicated (4) Atrial fibrillation: Code(s): I48.91 - Unspecified atrial fibrillation Status: Acute Assessment and Plan: EKG indicated chronic afib with rate of 73 Trend heart rate Continue metoprolol and Eliquis Trend heart rate Tele monitor for now add aspirin (5) Hypothyroidism: Code(s): E03.9 - Hypothyroidism, unspecified Status: Acute Assessment and Plan: Continue with levothyroxine TSH 0.015, T3 1.12, T4 1.68 Stable (6) Hyperlipidemia: Code(s): E78.5 - Hyperlipidemia, unspecified Status: Acute Assessment and Plan: Continue with simvastatin Lipid panel Increase as indicated DS: Summary Hospital Course Hospital Course: Patient 87-year-old female with a past medical history atrial fibrillation, cardio myopathy, congestive heart failure, hypertension, hyperlipidemia hypothyroidism who presented to the ED with complaints of shortness of breath, headache, generalized weakness for last 2 days. Upon arrival to the ED patient was noted to have vascular congestion with cardiomegaly and interstitial edema. Head CT showed some old infarcts along with the MRI. CTA stated 0% stenosis bilaterally. Likes were given in the ED and has been continued on the floor. Patient did diurese well is not complaining of any chest pain, shortness a breath, nausea, vomiting, diarrhea or constipation. Patient is lightheaded and dizzy however this is chronic as she does take meclizine in the morning at night. Patient also sleeps in a recliner and states that is pretty normal for her as well her headache has resolved. Blood pressure is more stable. Daughter was in the room and all results have been reviewed. Echo was performed however is pending read at this time. Patient wishes to be discharged and daughter agrees with discharge at this time. Patient will be discharged home with p.r.n. Lasix and instructions of when Lasix to be given have been given to the patient and daughter and verbalized understanding. Status at Discharge Functional status at discharge: independent ambulation Overall status at discharge: patient is progressing back to baseline Time Spent with Patient Time attestation: Total time spent providing and/or coordinating discharge services: 52 minutes Time spent: Greater than 30 minutes Specific discharge act
--- NOTE | 2022-08-02 11:40 | PC.NURSE ---
On 08/02/22, the student, [Froy Saunders], provided care and completed [facility] documentation on this patient. I have reviewed the student's documentation and agree with the findings.
--- NOTE | 2022-08-02 14:09 | PCCCNOTE ---
On 08/02/22, the student, [Gertrude Mckeon ], provided care and completed [facility] documentation on this patient. I have reviewed the student's documentation and agree with the findings.
== END 2022-08-02 12:25 | disposition home or self-care (01) ==
LOC: ANHED 12:40 → ANH2MED 14:02
PROVIDERS: Nurse Practitioner; Admitting Provider Internal Medicine; Emergency Provider Physician Assistant; PCP Internal Medicine; Visit Provider Nurse Practitioner
DX: I11.0 Hypertensive heart disease with heart failure (principal); I50.9 Heart failure, unspecified; I63.81 Other cerebral infarction due to occlusion or stenosis of small artery; I48.91 Unspecified atrial fibrillation; E03.9 Hypothyroidism, unspecified; E78.5 Hyperlipidemia, unspecified; R53.1 Weakness; R06.02 Shortness of breath; R05.9 Cough, unspecified; R51.9 Headache, unspecified; Z20.822 Contact with and (suspected) exposure to COVID-19; R29.700 NIHSS score 0; R60.9 Edema, unspecified; I08.3 Combined rheumatic disorders of mitral, aortic and tricuspid valves; I42.9 Cardiomyopathy, unspecified; R07.89 Other chest pain; R42 Dizziness and giddiness; Z79.01 Long term (current) use of anticoagulants; Z79.899 Other long term (current) drug therapy
CPT/HCPCS: 36415; 70450; 70496; 70498; 70553; 71046; 80053; 80061; 83605; 83690; 83735; 83880; 84439; 84443; 84480; 84484; 85025; 85610; 85730; 87636; 93005; 93306; 96374; 96375; 96376; 97161; 97165; 99285; A9270; A9577; G0378; J1940; Q9967

== ENCOUNTER 2023-02-03 12:04 | Emergency (ER) | payer MEDICARE, SELFPAY ==
--- NOTE | ~2023-02-03 | CT_ITS ---
EXAMINATION: CT brain wo con DATE: 02/03/2023 12:44 INDICATION: Head injury. TECHNIQUE: Computed tomography (CT) of the head was performed without intravenous contrast. The mA wa s adjusted according to patient size. Iterative reconstruction technique was employed. The dose-lengt h product was 529.67 mGy-cm. COMPARISON: Head CT 08/01/2022 FINDINGS: There is chronic encephalomalacia in anteroinferior left temporal lobe. There is an old inf arct in right caudate nucleus. There is an old infarct in the left caudate nucleus. There are scatter ed areas of low attenuation in the cerebral white matter, which is within normal limits for the patie nt's age. There is no intracranial hemorrhage, acute infarction, or abnormal intracranial mass lesion . The ventricles are normal in size. There is mild mucosal thickening in the ethmoid sinuses. The mas toid air cells are normal. There are likely changes of ocular lens replacement surgeries. There is po sterior scalp soft tissue swelling. IMPRESSION: 1. 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 Reviewed, dictated and finalized at location A.
--- NOTE | ~2023-02-03 | CT_ITS ---
EXAMINATION: CT cervical spine wo con DATE: 02/03/2023 12:44 INDICATION: Head injury. TECHNIQUE: Computed tomography (CT) of the cervical spine was performed without intravenous contrast. Automated exposure control and iterative reconstruction technique were employed. The dose-length pro duct was 143.42 mGy-cm. COMPARISON: None FINDINGS: There is kyphosis of upper cervical spine. Vertebral body heights are normal. There is mode rately decreased disc height at C3-C4, severely decreased disc height at C4-C5 and C5-C6, and mildly decreased disc height at C7-T1. The following disc levels are specifically discussed: C2-C3: There is no uncovertebral joint osteoarthritis. There is mild right and moderate left facet claire int osteoarthritis. There is no neural foraminal stenosis. There is no central canal stenosis. C3-C4: There is mild right and severe left uncovertebral joint osteoarthritis. There is moderate righ t and severe left facet joint osteoarthritis. There is mild left neural foraminal stenosis. There is mild central canal stenosis. C4-C5: There is severe bilateral uncovertebral joint osteoarthritis. There is mild bilateral facet claire int osteoarthritis. There is moderate right and mild left neural foraminal stenosis. There is mild ce ntral canal stenosis. C5-C6: There is severe bilateral uncovertebral joint osteoarthritis. There is mild bilateral facet claire int osteoarthritis. There is mild bilateral neural foraminal stenosis. There is mild central canal st enosis. C6-C7: There is mild left uncovertebral joint osteoarthritis. There is mild right and moderate left f acet joint osteoarthritis. There is no neural foraminal stenosis. There is no central canal stenosis. C7-T1: There is no uncovertebral joint osteoarthritis. There is severe bilateral facet joint osteoart hritis. There is mild bilateral neural foraminal stenosis. There is no central canal stenosis. IMPRESSION: 1. No fracture. 2. Severe cervical spondylosis. Reviewed, dictated and finalized at location A.
[2023-02-03 12:05] VITALS: BP 174/115; PULSE 97; RESP 16; TEMP 36.6; O2SAT 94
--- NOTE | 2023-02-03 13:16 | ED.FALL ---
HPI - Fall General Chief Complaint: Fall Stated Complaint: fall/head injury/thinners Time Seen by Provider: 02/03/23 12:16 Source: patient and family Mode of arrival: ambulatory Limitations: no limitations History of Present Illness HPI Narrative: This is a 87 year old female that presents to the ER for a ground level fall with head injury. Reports she took a few steps backwards and lost her balance. She fell backwards and hit her head on the ground. Reports she is on a blood thinner so came in to be evaluated. Reports a mild headache. Denies loss of consciousness, vision changes, vomiting, numbness, or weakness Related Data Home Medications Medication Instructions Recorded Confirmed levothyroxine 75 mcg tablet 50 mcg PO DAILY 10/13/20 08/01/22 simvastatin 20 mg tablet 20 mg PO DAILY 10/13/20 08/01/22 meclizine 25 mg tablet 25 mg PO TID PRN Dizziness 04/13/21 08/01/22 Vitamin D3 2,500 unit PO DAILY 08/01/22 08/01/22 cyanocobalamin (vitamin B-12) 2,500 mcg PO DAILY 08/01/22 08/01/22 2,500 mcg tablet Allergies Allergy/AdvReac Type Severity Reaction Status Date / Time No Known Allergies Allergy Verified 08/01/22 13:41 Review of Systems Review of Systems: CONSTITUTIONAL: Denies fever EYES: Denies visual changes GASTROINTESTINAL: Denies vomiting MUSCULOSKELETAL: Denies back pain, joint pain, or myalgia. NEUROLOGIC: Denies numbness, or weakness. 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 EF as low as 20 to 25% in September 2020 but improved to 57% in January 2021. Congestive heart failure Hyperlipidemia Hypertension Hypothyroidism Surgical History Surgical History History of bilateral cataract extraction History of hysterectomy for benign disease Family History Family History Father Tuberculosis Social History Social History (Updated 08/01/22 @ 16:22 by Shreya Orr NP) Social History: Surrogate decision maker: Celina Toribio and Leda Farr, daughters. She has 3 children, 2 girls and a boy. Her daughter lives with her. 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 Code status: Full code. Smoking status: Never smoker Alcohol intake: never Substance use: never Substance use type: does not use Lack of Transportation: No Lack of Food: Never True Current Housing: I Have Housing Concerned About Future Housing: No Difficulty Paying Gas/Electric Bills: No Difficulty Paying for Meds: No Currently Unemployed: No Education: High School Diploma/GED Difficulty w/ Childcare or Family Care: No Additional living arrangements comments: The patient is and lives in her own home in [place]. Additional occupation/education comments: Retired. Spiritual care concerns: No Exam Narrative: GENERAL: Well-appearing, well-nourished, and in no acute distress. HEAD: Normocephalic, atraumatic. EYES: PERRLA and EOMI. ENT: Nares clear, no rhinorrhea or epistaxis. Mucous membranes moist. Oropharynx without tonsillar hypertrophy exudate or other lesions. Bilateral TMs pearly calderon non-bulging NECK: Supple. No adenopathy or masses. C collar in place CHEST: Clear to auscultation. No respiratory distress. No wheezes rales or rhonchi HEART: Regular rate and rhythm. No murmur heard. Normal peripheral pulses. BACK: No midline spinal tenderness EXTREMITIES: Normal range of motion. No edema or obvious deformity. Strength equal in bilateral upper and lower extremities (5/5) SKIN: Warm, dry, no rash. NEURO: No focal deficits. Alert and oriented x3. CN II-XII grossly intact PSYCH: Normal mood and affect Course Vital Signs Vital signs: Vital Signs Temperature 97.8 F 02/03/23 12:
[2023-02-03 13:40] VITALS: BP 168/92; PULSE 80; RESP 16; O2SAT 98
== END 2023-02-03 13:20 | disposition home or self-care (01) ==
PROVIDERS: Emergency Provider Physician Assistant; PCP Internal Medicine
DX: S09.90XA Unspecified injury of head, initial encounter (principal); I48.91 Unspecified atrial fibrillation; I11.0 Hypertensive heart disease with heart failure; I50.9 Heart failure, unspecified; E03.9 Hypothyroidism, unspecified; W01.0XXA Fall on same level from slipping, tripping and stumbling without subsequent striking against object, initial encounter
CPT/HCPCS: 70450; 72125; 99284

== ENCOUNTER 2023-07-31 10:02 | Emergency (ER) | payer MEDICARE, SELFPAY ==
[2023-07-31] VITALS (16 sets, daily range): BP systolic 89–160; BP diastolic 56–91; PULSE 74–100; RESP 14–25; TEMP 36.5; O2SAT 95–98
--- NOTE | ~2023-07-31 | XR_ITS ---
Clinical Indication: Weakness PA and lateral views of the chest: Comparison: None Findings: The lungs are clear, without evidence of focal consolidation or pleural effusion. Cardiome diastinal silhouette is prominent. Bones and soft tissues are unremarkable. Impression: Clear lungs. Reviewed, dictated and finalized at location . Impression: Clear lungs.
--- NOTE | 2023-07-31 10:04 | ECG_ITS ---
SEE SCANNED COPY FOR CONFIRMED REPORT MTDD
[2023-07-31 10:23] LABS: Basophils Percent Auto 0.3 % (0.2-1.2); Eosinophils Absolute Auto 0.2 K/mm3 (0-0.3); Eosinophils Percent Auto 3.4 % (0-4.4); Hematocrit 38.8 % (37.0-47.0); Hemoglobin 12.4 g/dL (12.0-15.0); Immature Granulocyte Absolute 0.03 K/mm3 (0.00-0.031); Immature Granulocyte Percent A 0.4 % (0-0.5); Immature Platelet Fraction Pct 7.3 % (0.9-11.2); Lymphocytes Absolute Auto 1.08 K/mm3 (0.9-3.2); Lymphocytes Percent Auto 15.9 % (18.3-44.2); Mean Corpuscular Hemoglobin 29.4 pg (26-34); Mean Corpuscular Volume 91.9 fl (80-100); Monocytes Absolute Auto 0.8 K/mm3 (0.1-0.6); Monocytes Percent Auto 12.1 % (2.6-8.5); Neutrophils Absolute Auto 4.6 K/mm3 (1.3-6.7); Neutrophils Percent Auto 67.9 % (45.5-73.1); Platelet Count Result 136 k/mm3 (150-375); Red Blood Count 4.22 M/mm3 (4.2-5.4); Red Cell Distribution Width 13.6 % (11.5-14.5); White Blood Count 6.8 K/mm3 (4.5-10.0)
[2023-07-31 10:34] LABS: Alanine Aminotransferase 12 U/L (6-35); Albumin Level 4.2 g/dL (3.5-5.1); Alkaline Phosphatase 82 U/L (38-126); Anion Gap 9 mmol/L (4-12); Aspartate Amino Transferase 21 U/L (14-36); Bilirubin,Total 1.9 mg/dL (0.2-1.3); Blood Urea Nitrogen 13 mg/dL (7-17); Calcium 9.1 mg/dL (8.4-10.2); Carbon Dioxide 25 mmol/L (22-30); Chloride 104 mmol/L (98-107); Estimated CRCL calculation 27 ml/min; Estimated Glomerular Filt Rate 47; Glucose 111 mg/dL (65-110); Potassium 3.2 mmol/L (3.4-5.0); Sodium 138 mmol/L (137-145)
[2023-07-31 11:38] LABS: Appearance Urine Clear (Clear); Bilirubin Urine Negative (Negative); Blood Urine Negative (Negative); Color Urine Yellow (Yellow); Glucose Urine UA Negative (Negative); Ketones Urine Trace mg/dL (Negative); Leukocyte Esterase Ur Negative LEU/UL (Negative); Nitrate Urine Negative (Negative); Protein Urine Negative (Negative); Specific Grav Ur 1.015 (1.001-1.035); pH Urine 5.5 (5.0-9.0)
[2023-07-31 11:44] LABS: Add Urine Microscopic? NO
[2023-07-31] MEDS: SODIUM CHLORIDE 0.9% IV 1,000 ML 999 ML IV CONT (12:01)
--- NOTE | 2023-07-31 12:13 | ED.GENADULT ---
HPI - General Adult General Chief complaint: Weakness Stated complaint: sick since , pale & pasty Time Seen by Provider: 07/31/23 10:05 History of Present Illness HPI narrative: Patient is an 88-year-old female who presents ER with reports from family that she has been sick for several days. Mild cough. No fevers or chills or sweats. This morning patient was lightheaded and pale so opted to bring her to the ER. Patient has no reports of pain or discomfort at this time. She reports she did take a shower this morning which made her feel refreshed. She endorses poor oral intake of food and water over last couple days. Related Data Home Medications Medication Instructions Recorded Confirmed levothyroxine 75 mcg tablet 50 mcg PO DAILY 10/13/20 08/01/22 simvastatin 20 mg tablet 20 mg PO DAILY 10/13/20 08/01/22 meclizine 25 mg tablet 25 mg PO TID PRN Dizziness 04/13/21 08/01/22 Vitamin D3 2,500 unit PO DAILY 08/01/22 08/01/22 cyanocobalamin (vitamin B-12) 2,500 mcg PO DAILY 08/01/22 08/01/22 2,500 mcg tablet Allergies Allergy/AdvReac Type Severity Reaction Status Date / Time No Known Allergies Allergy Verified 08/01/22 13:41 Review of Systems Review of Systems: All systems reviewed & are unremarkable except as noted in HPI and below Constitutional: Constitutional: Denies chills, Reports fatigue, Denies fever(s) and Reports weakness ENT: Reports system reviewed and no additional complaints, except as documented Cardiovascular: Cardiovascular: Reports no additional cardiovascular complaints Respiratory: Respiratory: Reports no additional respiratory complaints Gastrointestinal: Gastrointestinal: Reports no additional gastrointestinal complaints Neurologic: Reports dizziness, Denies headache(s), Denies focal weakness and Denies numbness [facility] Past Medical History Medical History (Updated 07/31/23 @ 13:24 by Andrade Arcos MD) Atrial fibrillation 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 EF as low as 20 to 25% in September 2020 but improved to 57% in January 2021. Congestive heart failure Hyperlipidemia Hypertension Hypothyroidism Surgical History Surgical History History of bilateral cataract extraction History of hysterectomy for benign disease Family History Family History Father Tuberculosis Social History Social History (Updated 08/01/22 @ 16:22 by Shreay Orr NP) Social History: Surrogate decision maker: Celina Toribio and Leda Farr, daughters. She has 3 children, 2 girls and a boy. Her daughter lives with her. 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 Code status: Full code. Smoking status: Never smoker Alcohol intake: never Substance use: never Substance use type: does not use Lack of Transportation: No Lack of Food: Never True Current Housing: I Have Housing Concerned About Future Housing: No Difficulty Paying Gas/Electric Bills: No Difficulty Paying for Meds: No Currently Unemployed: No Education: High School Diploma/GED Difficulty w/ Childcare or Family Care: No Additional living arrangements comments: The patient is and lives in her own home in [place]. Additional occupation/education comments: Retired. Spiritual care concerns: No Exam Narrative: GENERAL: Well-appearing, well-nourished, and in no acute distress. HEAD: Normocephalic, atraumatic. ENT: Mucous membranes moist. NECK: Supple. CHEST: Clear to auscultation. No respiratory distress. HEART: Irregularly irregular rate and rhythm. Normal peripheral pulses. ABDOMEN: Soft, nontender, nondistended. EXTREMITIES: Normal range of motion. No edema. SKIN: Warm, dry, no rash. NEURO: Alert and oriented x3. PSYCH: Normal mood and affect. Course Course Emergency Course: 1215: Patient with positive orthostatics. 1 L IV fluid ordered. Pat
[2023-07-31] MEDS: POTASSIUM CHLORIDE 20 MEQ ER TABLET 40 MEQ PO (13:33)
== END 2023-07-31 13:44 | disposition home or self-care (01) ==
PROVIDERS: Emergency Provider Emergency Medicine; PCP Internal Medicine
DX: E86.0 Dehydration (principal); E87.6 Hypokalemia; I48.91 Unspecified atrial fibrillation; I50.9 Heart failure, unspecified; I11.0 Hypertensive heart disease with heart failure; E78.5 Hyperlipidemia, unspecified; E03.9 Hypothyroidism, unspecified; Z98.42 Cataract extraction status, left eye; Z98.41 Cataract extraction status, right eye; Z90.710 Acquired absence of both cervix and uterus; R94.31 Abnormal electrocardiogram [ECG] [EKG]
CPT/HCPCS: 36415; 71046; 80053; 81003; 85025; 85055; 93005; 96360; 99284; A9270; J7030

== ENCOUNTER 2023-12-16 03:53 | Inpatient (IN) | payer MEDICARE, SELFPAY ==
--- NOTE | ~2023-12-16 | XR_ITS ---
EXAMINATION: XR surgery orthopedic DATE: 12/17/2023 14:13 INDICATION: Intertrochanteric fracture of proximal left femur. TECHNIQUE: 5 intraoperative fluoroscopic views of left femur were obtained. I was not present. Fluoro scopy exposure time was 140 seconds. COMPARISON: Left hip radiographs 12/16/23 FINDINGS: There is a comminuted intertrochanteric fracture of proximal left femur in near-anatomic al ignment status post open reduction internal fixation with antegrade intramedullary reddy, femoral head/ neck screw, and distal interlocking screw. There is moderate left hip osteoarthritis. IMPRESSION: 1. Intertrochanteric fracture of proximal left femur status post open reduction internal fixation. 2. Moderate left hip osteoarthritis. Reviewed, dictated and finalized at location A.
--- NOTE | ~2023-12-16 | XR_ITS ---
AP view of the pelvis and AP and lateral views of the left hip Clinical history: Pain Findings: There is acute intertrochanteric fracture of the proximal left femur, with comminution and mild displacement.. Bilateral hip and SI joint spaces are preserved. Soft tissues are unremarkable. Impression: Acute, comminuted intertrochanteric fracture of the proximal femur. Reviewed, dictated and finalized at location . Impression: Acute, comminuted intertrochanteric fracture of the proximal femur.
--- NOTE | ~2023-12-16 | XR_ITS ---
XR chest 1V portable 12/20/2023 14:00 Indication: Covid Procedure: AP portable chest Comparison: 07/31/2023 Findings: Cardiomegaly. Left basilar infiltrates may represent atelectasis or developing pneumonia. T here is atherosclerosis and ectasia of the aorta. Generalized osteopenia. No edema, pleural effusion or pneumothorax. Impression: 1: Left basilar infiltrates may represent atelectasis or developing pneumonia. Reviewed, dictated and finalized at location B. Impression: 1: Left basilar infiltrates may represent atelectasis or developing pneumonia.
[2023-12-16 03:57] VITALS: BP 155/87; PULSE 78; RESP 20; TEMP 36.4; O2SAT 98
[2023-12-16] MEDS: MORPHINE SULFATE (*CRX) 2 MG/ML INJ IV PUSH ×3 (04:25→22:05)
[2023-12-16] MEDS: ONDANSETRON INJ 4 MG/2 ML VIAL IV PUSH (04:25)
[2023-12-16 05:28] VITALS: BP 145/89; PULSE 64; RESP 14; O2SAT 98
--- NOTE | 2023-12-16 05:35 | ED.FALL ---
HPI - Fall General Chief Complaint: Fall Stated Complaint: GLF, L hip pain Time Seen by Provider: 12/16/23 04:00 History of Present Illness HPI Narrative: Patient is an 88-year-old female who presents to the emergency department this evening status post ground level fall that occurred at home. Patient states that she was sitting in the couch in the living room and could not sleep so finally she decided to get up and go to her room to watch TV there until she falls asleep. Patient turned off the lights and was walking around table next to her bed and feels as though she must have tripped on the table or something and landed on her left hip. Patient did not hit her head and denies any loss of consciousness stating that she remembers the full event. Patient also states that she was wearing house slippers that were loose and she thinks that this contributed to her fall. Patient states that she has been having some left hip pain even prior to this fall and feels as though from time to time her left hip would give out or would catch on something and feels as though this may have happened today causing her to fall. Patient admits that she does take a blood thinner, Eliquis. Denies any additional symptoms or concerns at this time. Related Data Home Medications Medication Instructions Recorded Confirmed levothyroxine 75 mcg tablet 50 mcg PO DAILY 10/13/20 08/01/22 simvastatin 20 mg tablet 20 mg PO DAILY 10/13/20 08/01/22 meclizine 25 mg tablet 25 mg PO TID PRN Dizziness 04/13/21 08/01/22 Vitamin D3 2,500 unit PO DAILY 08/01/22 08/01/22 cyanocobalamin (vitamin B-12) 2,500 mcg PO DAILY 08/01/22 08/01/22 2,500 mcg tablet Allergies Allergy/AdvReac Type Severity Reaction Status Date / Time No Known Allergies Allergy Verified 12/16/23 04:06 Review of Systems Review of Systems: All systems are reviewed and are negative unless stated otherwise in the HPI. 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 EF as low as 20 to 25% in September 2020 but improved to 57% in January 2021. Congestive heart failure Hyperlipidemia Hypertension Hypothyroidism Surgical History Surgical History History of bilateral cataract extraction History of hysterectomy for benign disease Family History Family History Father Tuberculosis Social History Social History Social History: Surrogate decision maker: Celina Toribio and Leda Farr, daughters. She has 3 children, 2 girls and a boy. Her daughter lives with her. 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 Code status: Full code. Smoking status: Never smoker Alcohol intake: never Substance use: never Substance use type: does not use Lack of Transportation: No Lack of Food: Never True Current Housing: I Have Housing Concerned About Future Housing: No Difficulty Paying Gas/Electric Bills: No Difficulty Paying for Meds: No Currently Unemployed: No Education: High School Diploma/GED Difficulty w/ Childcare or Family Care: No Additional living arrangements comments: The patient is and lives in her own home in [place]. Additional occupation/education comments: Retired. Spiritual care concerns: No Exam Narrative: General: Alert, awake, afebrile, in no acute distress. HEENT: PERRL, no rhinorrhea, no post nasal drip, oropharynx clear. Cardiovascular: Regular rate and rhythm, no murmurs, rubs or gallops, no peripheral edema. Respiratory: Clear to auscultation bilaterally, no tachypnea, no wheezing, no rhonchi, no rubs, no respiratory distress. Abdomen: Soft, nontender, nondistended, no rebound, no guarding, no peritoneal signs. Musculoskeletal: Left lower extremity exter
[2023-12-16] MEDS: MORPHINE SULFATE (*CRX) 2 MG/ML INJ 1 MG IV PUSH (07:04)
[2023-12-16 07:55] LABS: Basophils Percent Auto 0.3 % (0.2-1.2); Eosinophils Absolute Auto 0.1 K/mm3 (0-0.3); Eosinophils Percent Auto 1.1 % (0-4.4); Hematocrit 37.7 % (37.0-47.0); Hemoglobin 12.1 g/dL (12.0-15.0); Immature Granulocyte Absolute 0.04 K/mm3 (0.00-0.031); Immature Granulocyte Percent A 0.6 % (0-0.5); Lymphocytes Absolute Auto 0.96 K/mm3 (0.9-3.2); Lymphocytes Percent Auto 13.7 % (18.3-44.2); Mean Corpuscular HGB Conc 32.1 g/dl (32-36); Mean Corpuscular Hemoglobin 30.8 pg (26-34); Mean Corpuscular Volume 95.9 fl (80-100); Mean Platelet Volume 12.5 fl (7.4-10.4); Monocytes Absolute Auto 0.5 K/mm3 (0.1-0.6); Monocytes Percent Auto 7.3 % (2.6-8.5); Neutrophils Absolute Auto 5.4 K/mm3 (1.3-6.7); Platelet Count Result 97 k/mm3 (150-375); Red Blood Count 3.93 M/mm3 (4.2-5.4); Red Cell Distribution Width 13.7 % (11.5-14.5)
--- NOTE | 2023-12-16 07:56 | ADMGEN ---
This patient, Renata Brown, was admitted to 3 [facility] Surg Room 315-01. Patient/family oriented to hospital policies and general routines including ID bracelet, bed and alarms, visiting hours, pain management, procedures, bathroom and other care routines, personal items, smoking policy, room service/diet, and visiting hours. Information on how to activate the Rapid Response Team has been discussed. Patient/Family are encouraged to report perceived risks to care and to ask questions if they do not understand what they are told or what they should do.
[2023-12-16 08:05] LABS: Alanine Aminotransferase 13 U/L (6-35); Albumin Level 3.8 g/dL (3.5-5.1); Alkaline Phosphatase 91 U/L (38-126); Anion Gap 10 mmol/L (4-12); Aspartate Amino Transferase 23 U/L (14-36); Bilirubin,Total 1.5 mg/dL (0.2-1.3); Blood Urea Nitrogen 23 mg/dL (7-17); Calcium 8.7 mg/dL (8.4-10.2); Carbon Dioxide 24 mmol/L (22-30); Chloride 105 mmol/L (98-107); Estimated CRCL calculation 34 ml/min; Estimated Glomerular Filt Rate 59; Glucose 120 mg/dL (65-110); Potassium 3.7 mmol/L (3.4-5.0); Sodium 139 mmol/L (137-145)
[2023-12-16 08:19] LABS: INR 1.3
[2023-12-16 08:20] LABS: Partial Thromboplastin Time 29.1 Seconds (22.3-36.8)
[2023-12-16 08:29] VITALS: BMI 20.5
[2023-12-16 08:36] VITALS: BP 143/85; PULSE 93; RESP 16; TEMP 36.4; O2SAT 95
--- NOTE | 2023-12-16 09:07 | PM.CNOR ---
Assessment and Plan Assessment and plan (1) Intertrochanteric fracture of left hip: Code(s): S72.142A - Displaced intertrochanteric fracture of left femur, initial encounter for closed fracture Status: Acute Assessment and Plan: Patient has an intertrochanteric fracture left hip. She was somewhat ambulatory before. I have recommended open reduction internal fixation with a trochanteric nail. Discussed risks benefits limitations and alternatives. History of Present Illness HPI Consult date: 12/16/23 Chief complaint: L IT Fracture Review of Systems Review of Systems: All systems are reviewed and are negative unless stated otherwise in the HPI. 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 EF as low as 20 to 25% in September 2020 but improved to 57% in January 2021. Congestive heart failure Hyperlipidemia Hypertension Hypothyroidism Surgical History Surgical History History of bilateral cataract extraction History of hysterectomy for benign disease Family History Family History Father Tuberculosis Social History Social History Social History: Surrogate decision maker: Celina Catarino and Leda Farr, daughters. She has 3 children, 2 girls and a boy. Her daughter lives with her. 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 Code status: Full code. Smoking status: Former smoker Alcohol intake: current Drinks per week: 1 Substance use: never Substance use type: does not use Do You Feel Safe in your Home?: Yes Lack of Transportation: No Lack of Food: Never True Current Housing: I Have Housing Concerned About Future Housing: No Difficulty Paying Gas/Electric Bills: No Difficulty Paying for Meds: No Currently Unemployed: No Education: High School Diploma/GED Difficulty w/ Childcare or Family Care: No Additional living arrangements comments: The patient is and lives in her own home in [place]. Additional occupation/education comments: Retired. Spiritual care concerns: No Meds Home Medications and Allergies Home Medications Medication Instructions Recorded Confirmed Type levothyroxine 75 mcg tablet 75 mcg PO DAILY 10/13/20 12/16/23 History simvastatin 20 mg tablet 20 mg PO DAILY 10/13/20 12/16/23 History apixaban 2.5 mg tablet (Eliquis) 2.5 mg PO Q12HR #60 tabs 10/17/20 12/16/23 Rx metoprolol succinate 100 mg 100 mg PO QAM #30 tabs 10/17/20 12/16/23 Rx tablet,extended release 24 hr (Toprol XL) meclizine 25 mg tablet 25 mg PO BID Dizziness 04/13/21 12/16/23 History Vitamin D3 2,500 unit PO DAILY 08/01/22 12/16/23 History cyanocobalamin (vitamin B-12) 2,500 mcg PO DAILY 08/01/22 12/16/23 History 2,500 mcg tablet furosemide 20 mg tablet (Lasix) 20 mg PO EVERY OTHER DAY PRN edema 12/16/23 12/16/23 History or weight gain potassium chloride 20 mEq oral 20 meq PO DAILY 12/16/23 12/16/23 History packet Allergies Allergy/AdvReac Type Severity Reaction Status Date / Time No Known Allergies Allergy Verified 12/16/23 07:56 Vital Signs Vital Signs - 24 hr 12/16/23 03:57 12/16/23 05:28 12/16/23 08:36 Temperature 97.6 F 97.6 F Pulse Rate 78 64 93 Respiratory Rate 20 14 16 Blood Pressure 155/87 H 145/89 H 143/85 H Pulse Oximetry 98 98 95 Oxygen Delivery Room Air Exam Narrative: Patient wiggles toes. Has pain to any palpation manipulation. The leg is shortened and externally rotated. Eyes: General: appearance normal, both eyes and all related structures Neck: Neck: supple Resp: Effort & Inspection: normal respiratory effort Cardio: Rate: regular rate Rhythm: regular rhythm Results Labs 12/16/23 07:29
[2023-12-16 10:12] VITALS: O2SAT 94
[2023-12-16] MEDS: POTASSIUM CHLORIDE 20 MEQ PACKET (FOR LIQUID) PO (10:45)
[2023-12-16] MEDS: CYANOCOBALAMIN 500 MCG TABLET 2500 MCG PO (10:46)
[2023-12-16] MEDS: LEVOTHYROXINE SODIUM 75 MCG TABLET PO (10:46)
[2023-12-16] MEDS: CHOLECALCIFEROL 1,000 UNITS TABLET 2000 UNITS PO (10:46)
[2023-12-16] MEDS: SIMVASTATIN 20 MG TABLET PO (10:46)
[2023-12-16] MEDS: MECLIZINE HCL 25 MG TABLET PO ×2 (10:46→17:30)
[2023-12-16] MEDS: FUROSEMIDE 20 MG TABLET PO (10:50)
[2023-12-16] MEDS: METOPROLOL SUCCINATE EXT REL 100 MG TABCR PO (11:09)
--- NOTE | 2023-12-16 14:10 | PM.IMHP ---
H&P: HPI History of Present Illness Date/Time: 12/16/23 14:10 Chief Complaint: Fall Narrative: This is an 88-year-old female with a significant past medical history of atrial fibrillation, cardiomyopathy, CHF, hyperlipidemia, hypertension, hypothyroidism, hysterectomy who presented to the hospital after sustaining a ground level fall at home. Patient states that she was walking to her bed and tripped over bedside table landing on her left hip. She denies hitting her head or LOC. She does take Eliquis. Workup in the hospital included hip and pelvis x-ray which showed acute comminuted intratrochanteric fracture of the proximal femur. Initial labs showed a normal white blood cell count of 7.0, RBC 3.93, platelet count 97, INR 1.3, a total bili 1.5. Patient was given morphine and Zofran while in the ED. orthopedic surgery was consulted who is recommending open reduction internal fixation of trochanteric nail. Review of Systems Review of Systems: All systems reviewed & are unremarkable except as noted in HPI and below Constitutional: Constitutional: Reports as per HPI and Reports no additional constitutional complaints Eyes: Eyes: Reports as per HPI and Reports no additional eye complaints ENT: Reports system reviewed and no additional complaints, except as documented and Reports as per HPI Cardiovascular: Cardiovascular: Reports as per HPI and Reports no additional cardiovascular complaints Respiratory: Respiratory: Reports as per HPI and Reports no additional respiratory complaints Gastrointestinal: Gastrointestinal: Reports as per HPI and Reports no additional gastrointestinal complaints Genitourinary: Genitourinary: Reports no additional female genitourinary complaints and Reports as per HPI Musculoskeletal: Musculoskeletal: Reports no additional musculoskeletal complaints and Reports as per HPI Integumentary/Breasts: Skin/Breast: Reports system reviewed and no additional complaints, except as docu and Reports as per HPI Neurologic: Reports system reviewed and no additional complaints, except as documented and Reports as per HPI Psychiatric: Psychiatric: Reports no additional psychiatric complaints and Reports as per HPI REPLACED BY [facility] Past Medical History Medical History Atrial fibrillation 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 EF as low as 20 to 25% in September 2020 but improved to 57% in January 2021. Congestive heart failure Hyperlipidemia Hypertension Hypothyroidism Surgical History Surgical History History of bilateral cataract extraction History of hysterectomy for benign disease Family History Family History Father Tuberculosis Social History Social History Social History: Surrogate decision maker: Celina Headleyshaw and Leda Farr, daughters. She has 3 children, 2 girls and a boy. Her daughter lives with her. 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 Code status: Full code. Smoking status: Former smoker Alcohol intake: current Drinks per week: 1 Substance use: never Substance use type: does not use Do You Feel Safe in your Home?: Yes Lack of Transportation: No Lack of Food: Never True Current Housing: I Have Housing Concerned About Future Housing: No Difficulty Paying Gas/Electric Bills: No Difficulty Paying for Meds: No Currently Unemployed: No Education: High School Diploma/GED Difficulty w/ Childcare or Family Care: No Additional living arrangements comments: The patient is and lives in her own home in [place]. Additional occupation/education comments: Retired. Spiritual care concerns: No Meds Home Medications and Allergies Home Medications Medication Instructions Recorded Confirmed Type levothyroxine 75 mcg tablet 75 mcg
--- NOTE | 2023-12-16 15:47 | PCPTNOTE ---
On 12/16/23, the student, [Aileen Vicente], provided care and completed [facility] documentation on this patient. I have reviewed the student's documentation and agree with the findings.
[2023-12-16 16:00] VITALS: BP 140/82; PULSE 72; RESP 18; TEMP 36.8; O2SAT 98
[2023-12-16 21:00] VITALS: BP 108/70; PULSE 108; RESP 16; TEMP 36.8; O2SAT 99
[2023-12-17] VITALS (18 sets, daily range): BP systolic 112–166; BP diastolic 45–120; PULSE 69–113; RESP 16–20; TEMP 36.5–37.1; O2SAT 87–100
[2023-12-17] MEDS: MORPHINE SULFATE (*CRX) 2 MG/ML INJ IV PUSH (03:29)
[2023-12-17] MEDS: LEVOTHYROXINE SODIUM 75 MCG TABLET PO (05:40)
[2023-12-17 09:03] LABS: INR 1.2; Prothrombin Time 15.4 Seconds (11.1-14.7)
[2023-12-17 09:05] LABS: Basophils Percent Auto 0.3 % (0.2-1.2); Eosinophils Absolute Auto 0.1 K/mm3 (0-0.3); Hematocrit 33.5 % (37.0-47.0); Hemoglobin 10.1 g/dL (12.0-15.0); Immature Granulocyte Absolute 0.04 K/mm3 (0.00-0.031); Immature Granulocyte Percent A 0.5 % (0-0.5); Immature Platelet Fraction Pct 11.2 % (0.9-11.2); Lymphocytes Absolute Auto 1.73 K/mm3 (0.9-3.2); Mean Corpuscular HGB Conc 30.1 g/dl (32-36); Mean Corpuscular Hemoglobin 30.1 pg (26-34); Mean Platelet Volume 12.9 fl (7.4-10.4); Neutrophils Percent Auto 63.2 % (45.5-73.1); Platelet Count Result 91 k/mm3 (150-375); Red Blood Count 3.35 M/mm3 (4.2-5.4); Red Cell Distribution Width 13.8 % (11.5-14.5); White Blood Count 7.9 K/mm3 (4.5-10.0)
[2023-12-17 09:20] LABS: Alanine Aminotransferase 11 U/L (6-35); Albumin Level 3.4 g/dL (3.5-5.1); Alkaline Phosphatase 62 U/L (38-126); Anion Gap 7 mmol/L (4-12); Aspartate Amino Transferase 20 U/L (14-36); Bilirubin,Total 1.5 mg/dL (0.2-1.3); Blood Urea Nitrogen 20 mg/dL (7-17); Calcium 8.4 mg/dL (8.4-10.2); Carbon Dioxide 27 mmol/L (22-30); Chloride 100 mmol/L (98-107); Estimated CRCL calculation 37 ml/min; Estimated Glomerular Filt Rate > 60; Glucose 108 mg/dL (65-110); Magnesium 2.3 mg/dL (1.6-2.3); Potassium 4.2 mmol/L (3.4-5.0); Sodium 134 mmol/L (137-145)
[2023-12-17 09:41] LABS: Anion Gap 8 mmol/L (4-12); Blood Urea Nitrogen 20 mg/dL (7-17); Calcium 8.4 mg/dL (8.4-10.2); Carbon Dioxide 25 mmol/L (22-30); Chloride 101 mmol/L (98-107); Estimated CRCL calculation 37 ml/min; Estimated Glomerular Filt Rate > 60; Glucose 106 mg/dL (65-110); Potassium 4.1 mmol/L (3.4-5.0); Sodium 134 mmol/L (137-145)
[2023-12-17] MEDS: CYANOCOBALAMIN 500 MCG TABLET 2500 MCG PO (09:51)
[2023-12-17] MEDS: POTASSIUM CHLORIDE 20 MEQ PACKET (FOR LIQUID) PO (09:52)
[2023-12-17] MEDS: METOPROLOL SUCCINATE EXT REL 100 MG TABCR PO (09:52)
[2023-12-17] MEDS: MECLIZINE HCL 25 MG TABLET PO ×2 (09:52→17:01)
[2023-12-17] MEDS: SIMVASTATIN 20 MG TABLET PO (09:52)
[2023-12-17] MEDS: CHOLECALCIFEROL 1,000 UNITS TABLET 2000 UNITS PO (09:52)
[2023-12-17] MEDS: LACTATED RINGERS 1,000 ML 30 ML IV CONT ×2 (12:00→14:38)
--- NOTE | 2023-12-17 12:05 | WPDPN ---
Progress Note: A&P Assessment and Plan (1) Intertrochanteric fracture of left hip: Code(s): S72.142A - Displaced intertrochanteric fracture of left femur, initial encounter for closed fracture Status: Acute Assessment and Plan: 12/15/23: Sustained a ground level fall landing on left hip Left hip and pelvis x-ray showing acute comminuted inter trochanteric fracture proximal femur Orthopedic surgery consulted and plans on taking patient for an open reduction internal fixation the left hip Continue pain control Patient normally on Eliquis however this is on hold, INR is 1.3 Continue Stearns catheter Bed rest ordered SCDs for now Case coordination consulted for outpatient rehab needs (2) Fall from ground level: Code(s): W18.30XA - Fall on same level, unspecified, initial encounter Status: Acute Assessment and Plan: See above (3) Hyperlipidemia: Code(s): E78.5 - Hyperlipidemia, unspecified Status: Chronic Assessment and Plan: 12/16/23: Continue simvastatin (4) Hypothyroidism: Code(s): E03.9 - Hypothyroidism, unspecified Status: Chronic Assessment and Plan: 12/16/23: Continue Synthroid (5) Hypertension: Code(s): I10 - Essential (primary) hypertension Status: Chronic Assessment and Plan: 12/16/23: Blood pressure ranging 126/91 to 143/85 Continue Metoprolol 100 mg extended release daily (6) Atrial fibrillation: Code(s): I48.91 - Unspecified atrial fibrillation Status: Chronic Assessment and Plan: 12/16/23: Continue metoprolol Eliquis on hold for surgery Plan patient s/p fall and fracture of left hip seen by Dr. Dean, orthopedic, patient will need ORIF, possibly tomorrow. patient stats it hurts to move her left leg. will monitor and follow up after the surgery, patient will need rehab. Patient's son is present in the room. Subjective Date/time seen: 12/17/23 12:05 Interval history: patient s/p fall and fracture of left hip seen by Dr. Dean, orthopedic, patient will need ORIF, possibly tomorrow. patient stats it hurts to move her left leg. will monitor and follow up after the surgery, patient will need rehab. Patient's son is present in the room. Review of Systems Review of Systems: All systems reviewed & are unremarkable except as noted in HPI and below Exam Narrative: Elderly frail Patient is comfortable, NAD HEENT: eyes are clear and none icteric LUNGS:CTA HEART: RR S1S2 ABD: BS+, Soft and nontender Lower extremities: no edema MS: Left lower extremity externally rotated SKIN: nonjaundiced Neuro: grossly intact. Objective Data Vital Signs Vital Signs: Vital Signs - 24 hr 12/16/23 17:43 12/16/23 16:00 12/16/23 21:00 Temperature 36.8 C 36.8 C Pulse Rate 72 108 H Respiratory Rate 18 16 Blood Pressure 140/82 108/70 Pulse Oximetry 98 99 Oxygen Delivery Room Air 12/17/23 05:16 12/17/23 08:00 12/17/23 08:00 Temperature 36.6 C 36.7 C Pulse Rate 113 H 88 88 Respiratory Rate 18 18 18 Blood Pressure 133/78 112/46 L Pulse Oximetry 97 92 92 Oxygen Delivery Room Air Intake/Output Intake/Output: Intake & Output 12/14/23 12/15/23 12/16/23 12/17/23 23:59 23:59 23:59 23:59 Intake Total 1070 0 Output Total 100 Balance 1070 -100 Meds/Results Medications: Active Medications Generic Name Dose Route Start Last Admin Trade Name Freq PRN Reason Stop Dose Admin Acetaminophen 650 mg 12/16/23 14:33 Acetaminophen 325 Mg Tablet PO Q4H PRN Mild Pain (1-3) or Fever Hydrocodone Bitart/Acetaminophen 1 tab 12/16/23 14:33 Hydrocodone/Acetaminophen (*Crx) 5-325 Mg Tablet PO Q4H PRN Moderate Pain (4-6) Cyanocobalamin 2,500 mcg 12/16/23 09:00 12/17/23 09:51 Cyanocobalamin 500 Mcg Tablet PO 2,500 mcg DAILY SHARITA Administration Furosemide 20 mg 12/16/23 09:00 12/16/23 10:50 Furosemide 20 Mg Tab
--- NOTE | 2023-12-17 12:13 | WPDHPUPDATE1 ---
History and Physical Update Update Date/Time: 12/17/23 12:13 History and Physical has been reviewed, including an updated exam of the patient. There are NO changes in the patient's condition. Risks, benefits, and alternatives have been discussed and questions answered. Patient agrees to proceed with procedure. Discussed at length with patient and family
[2023-12-17] MEDS: TRANEXAMIC ACID 1,000MG/ISO100 1,000 MG/100 ML BAG 200 MG IVPB (12:40)
--- NOTE | 2023-12-17 12:40 | WPDANESEPPF ---
Anes - Initial Pre Proc Eval Procedure: Operation Date: 12/17/23 13:00 Proposed Procedures p Left Intertrochanteric Nail - Brandyn Dean MD Date/Time: 12/17/23 12:40 Surgeon: Cedrick Farrell MD Pre Op Diagnosis: L IT Fracture Patient Data Age: 88 Gender: F Height: 1.65 m Weight: 56 kg Last Vital Signs Temp 98.0 F 12/17/23 08:00 Pulse 88 12/17/23 08:00 Resp 18 12/17/23 08:00 BP 112/46 L 12/17/23 08:00 Pulse Ox 92 12/17/23 08:00 O2 Del Method Room Air 12/17/23 08:00 Allergies Allergy/AdvReac Type Severity Reaction Status Date / Time No Known Allergies Allergy Verified 12/16/23 07:56 Home Medications Medication Instructions Recorded Confirmed Type levothyroxine 75 mcg tablet 75 mcg PO DAILY 10/13/20 12/16/23 History simvastatin 20 mg tablet 20 mg PO DAILY 10/13/20 12/16/23 History apixaban 2.5 mg tablet (Eliquis) 2.5 mg PO Q12HR #60 tabs 10/17/20 12/16/23 Rx metoprolol succinate 100 mg 100 mg PO QAM #30 tabs 10/17/20 12/16/23 Rx tablet,extended release 24 hr (Toprol XL) meclizine 25 mg tablet 25 mg PO BID Dizziness 04/13/21 12/16/23 History Vitamin D3 2,500 unit PO DAILY 08/01/22 12/16/23 History cyanocobalamin (vitamin B-12) 2,500 mcg PO DAILY 08/01/22 12/16/23 History 2,500 mcg tablet furosemide 20 mg tablet (Lasix) 20 mg PO EVERY OTHER DAY PRN edema 12/16/23 12/16/23 History or weight gain potassium chloride 20 mEq oral 20 meq PO DAILY 12/16/23 12/16/23 History packet Laboratory Tests 12/17/23 12/17/23 08:19 08:29 WBC 7.9 K/mm3 (4.5-10.0) RBC 3.35 L M/mm3 (4.2-5.4) Hgb 10.1 L g/dL (12.0-15.0) Hct 33.5 L % (37.0-47.0) MCV 100.0 fl (80-100) MCH 30.1 pg (26-34) MCHC 30.1 L g/dl (32-36) RDW 13.8 % (11.5-14.5) Plt Count 91 L k/mm3 (150-375) MPV 12.9 H fl (7.4-10.4) Immature Gran % (Auto) 0.5 % (0-0.5) Neut % (Auto) 63.2 % (45.5-73.1) Lymph % (Auto) 22.0 % (18.3-44.2) [place] % (Auto) 13.0 H % (2.6-8.5) Eos % (Auto) 1.0 % (0-4.4) Baso % (Auto) 0.3 % (0.2-1.2) Lymph # (Auto) 1.73 K/mm3 (0.9-3.2) [place] # (Auto) 1.0 H K/mm3 (0.1-0.6) Eos # (Auto) 0.1 K/mm3 (0-0.3) Baso # (Auto) 0.0 K/mm3 (0.0-0.1) Abs Immat Gran (auto) 0.04 H K/mm3 (0.00-0.031) Absolute Neuts (auto) 5.0 K/mm3 (1.3-6.7) Absolute Nucleated RBC 0.000 K/mm3 (0.0-0.012) Nucleated RBC % 0.0 % (0.0-0.2) % Immature Plt Fraction 11.2 % (0.9-11.2) PT 15.4 H Seconds (11.1-14.7) INR 1.2 Sodium 134 L mmol/L 134 L mmol/L (137-145) (137-145) Potassium 4.2 mmol/L 4.1 mmol/L (3.4-5.0) (3.4-5.0) Chloride 100 mmol/L 101 mmol/L (98-107) (98-107) Carbon Dioxide 27 mmol/L 25 mmol/L (22-30) (22-30) Anion Gap 7 mmol/L 8 mmol/L (4-12) (4-12) BUN 20 H mg/dL 20 H mg/dL (7-17) (7-17) Creatinine 0.80 mg/dL 0.80 mg/dL (0.7-1.0) (0.7-1.0) Estim Creat Clear Calc 37 ml/min 37 ml/min Estimated GFR > 60 > 60 (59 - ) (59 - ) Glucose 108 mg/dL 106 mg/dL (65-110) (65-110) Calcium 8.4 mg/dL 8.4 mg/dL (8.4-10.2) (8.4-10.2) Magnesium 2.3 mg/dL (1.6-2.3) Total Bilirubin 1.5 H mg/dL (0.2-1.3) AST 20 U/L (14-36) ALT 11 U/L (6-35) Alkaline Phosphatase 62 U/L (38-126) Total Protein 6.0 L g/dL (6.3-8.2) Albumin 3.4 L g/dL (3.5-5.1) Patient hx anesthesia problems: none Family hx anesthesia problems: none Results Review: All pre-operative results and documents have been reviewed as part of the pre-operative evaluation. 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 EF as low as 20 to 25% in September 2020 but improve
[2023-12-17] MEDS: ceFAZolin 2 GM/D5W 50 ML 2 GM/50 ML BAG IVPB ×2 (13:26→21:47)
--- NOTE | 2023-12-17 14:10 | W.PM.PROC2 ---
Procedure Note - Detailed Date of Procedure 12/17/23 Pre-op Diagnosis LEFT Intertrochanteric Hip Fracture Post-op Diagnosis Same Procedure Performed Open reduction internal fixation with a trochanteric nail. Surgeon Brandyn Dean MD [facility] Alex Araujo Anesthesia General Indications Hip Fracture Description of Procedure Patient brought to operating room #8. A general anesthetic was administered. She was sterilely prepped and draped on the fracture table after the fracture was reduced. A longitudinal incision was made incision made over the tip of the trochanter. A guide reddy placed and a one-step Reamer used. A 9 millimeter nail 125? was used. A 105 millimeters screw was placed into the center of the head. A distal locking screw 38 millimeters was placed. Wounds irrigated, hemostasis obtained. The incisions were closed with #2 Vicryl 2-0 Vicryl and thomas. Sterile dressing applied. The patient tolerated procedure well. Implants Biomet Troch Nail Estimated Blood Loss 200 Complications No immediate complications Condition Stable Disposition PACU [facility] Billing Surgery - Charge Forward: Surgery Billing ([id number] IT FX LEFT)
--- NOTE | 2023-12-17 14:37 | P.CDI_ITS ---
CDI Query Clarification Request CHF was documented. Please specify type and acuity of heart failure if known. Treatment: PO lasix * Acute * Chronic * Acute on Chronic * Unknown * Systolic * Diastolic * Combined Systolic and Diastolic * Unknown <Rose Curry RN - Last Filed: 12/17/23 14:39> Clarified Diagnosis Clarified Diagnosis: Cardiac ECHO showed normal EF of 55-60% and there was no mention of diastolic function, patient CHF status in unknown. <Kae Groves MD - Last Filed: 12/29/23 10:50>
--- NOTE | 2023-12-17 14:37 | WPDCDIQUERY2 ---
CDI Query Clarification Request CHF was documented. Please specify type and acuity of heart failure if known. Treatment: PO lasix Acute Chronic Acute on Chronic Unknown Systolic Diastolic Combined Systolic and Diastolic Unknown <Roes Curry RN - Last Filed: 12/17/23 14:39> Clarified Diagnosis Clarified Diagnosis: Cardiac ECHO showed normal EF of 55-60% and there was no mention of diastolic function, patient CHF status in unknown. <Kae Groves MD - Last Filed: 12/29/23 10:50>
[2023-12-17] MEDS: LABETALOL HCL INJ 100 MG/20 ML VIAL IV PUSH (15:15)
[2023-12-17] MEDS: SODIUM CHLORIDE 0.9% IV 1,000 ML 125 ML IV CONT (16:55)
[2023-12-17] MEDS: SENNA/DOCUSATE SODIUM TABLET 2 TAB PO (17:01)
[2023-12-17] MEDS: APIXABAN 2.5 MG TABLET PO (21:47)
[2023-12-18] MEDS: SODIUM CHLORIDE 0.9% IV 1,000 ML 125 ML IV CONT ×2 (01:26→10:30)
[2023-12-18] MEDS: ceFAZolin 2 GM/D5W 50 ML 2 GM/50 ML BAG IVPB ×2 (04:36→14:36)
[2023-12-18] MEDS: LEVOTHYROXINE SODIUM 75 MCG TABLET PO (04:37)
[2023-12-18 05:33] VITALS: BP 132/80; PULSE 93; RESP 18; TEMP 36.7; O2SAT 99
[2023-12-18 06:40] LABS: Basophils Percent Auto 0.1 % (0.2-1.2); Hematocrit 25.4 % (37.0-47.0); Hemoglobin 7.9 g/dL (12.0-15.0); Immature Granulocyte Absolute 0.08 K/mm3 (0.00-0.031); Immature Platelet Fraction Pct 10.1 % (0.9-11.2); Lymphocytes Absolute Auto 0.78 K/mm3 (0.9-3.2); Lymphocytes Percent Auto 9.4 % (18.3-44.2); Mean Corpuscular HGB Conc 31.1 g/dl (32-36); Mean Corpuscular Hemoglobin 30.2 pg (26-34); Mean Corpuscular Volume 96.9 fl (80-100); Mean Platelet Volume 12.7 fl (7.4-10.4); Monocytes Absolute Auto 0.8 K/mm3 (0.1-0.6); Monocytes Percent Auto 9.8 % (2.6-8.5); Neutrophils Absolute Auto 6.6 K/mm3 (1.3-6.7); Neutrophils Percent Auto 79.7 % (45.5-73.1); Platelet Count Result 75 k/mm3 (150-375); Red Blood Count 2.62 M/mm3 (4.2-5.4); White Blood Count 8.3 K/mm3 (4.5-10.0)
[2023-12-18 06:42] LABS: Alanine Aminotransferase 13 U/L (6-35); Albumin Level 2.9 g/dL (3.5-5.1); Alkaline Phosphatase 62 U/L (38-126); Anion Gap 8 mmol/L (4-12); Aspartate Amino Transferase 22 U/L (14-36); Bilirubin,Total 0.7 mg/dL (0.2-1.3); Blood Urea Nitrogen 15 mg/dL (7-17); Carbon Dioxide 24 mmol/L (22-30); Chloride 106 mmol/L (98-107); Estimated CRCL calculation 37 ml/min; Estimated Glomerular Filt Rate > 60; Glucose 131 mg/dL (65-110); Magnesium 2.2 mg/dL (1.6-2.3); Potassium 4.2 mmol/L (3.4-5.0); Sodium 138 mmol/L (137-145)
[2023-12-18] MEDS: CYANOCOBALAMIN 500 MCG TABLET 2500 MCG PO (09:05)
[2023-12-18] MEDS: CHOLECALCIFEROL 1,000 UNITS TABLET 2000 UNITS PO (09:06)
[2023-12-18] MEDS: MECLIZINE HCL 25 MG TABLET PO ×2 (09:06→18:00)
[2023-12-18] MEDS: APIXABAN 2.5 MG TABLET PO ×2 (09:06→20:15)
[2023-12-18] MEDS: CELECOXIB 200 MG CAPSULE PO (09:06)
[2023-12-18 09:07] VITALS: PULSE 93
[2023-12-18] MEDS: SIMVASTATIN 20 MG TABLET PO (09:07)
[2023-12-18] MEDS: METOPROLOL SUCCINATE EXT REL 100 MG TABCR PO (09:07)
[2023-12-18] MEDS: polyethylene glycoL 3350 17 GM POWD.PACK PO (09:07)
[2023-12-18] MEDS: SENNA/DOCUSATE SODIUM TABLET 2 TAB PO ×2 (09:07→18:00)
[2023-12-18] MEDS: POTASSIUM CHLORIDE 20 MEQ PACKET (FOR LIQUID) PO (09:07)
[2023-12-18] MEDS: HYDROcodone/acetaminophen (*CRX) 5-325 MG TABLET 1 TAB PO (09:12)
[2023-12-18] MEDS: FUROSEMIDE 20 MG TABLET PO (10:29)
[2023-12-18 13:33] VITALS: BP 116/70; PULSE 65; RESP 20; TEMP 36.3; O2SAT 97
--- NOTE | 2023-12-18 14:04 | PM.IMPN ---
Progress Note: A&P Assessment and Plan (1) Intertrochanteric fracture of left hip: Code(s): S72.142A - Displaced intertrochanteric fracture of left femur, initial encounter for closed fracture Status: Acute Assessment and Plan: Patient present with hip pain after a ground level fall landing on left hip. Left hip and pelvis x-ray showing acute comminuted inter trochanteric fracture proximal femur Orthopedic surgery consulted and patient went for an open reduction internal fixation the left hip 12/16 Pain well controlled. Continue pain control Patient normally on Eliquis and this has been resumed. PT/OT (2) Anemia: Code(s): D64.9 - Anemia, unspecified Status: Acute Assessment and Plan: Hgb normal on admission and has dropped to 7.9 today She was on Eliquis but do not see excessive bruising bus still suspect acute blood loss as a component. EBL 200mL Could be partially dilution. Stop IV fluids. Monitor and transfuse as needed (3) Fall from ground level: Code(s): W18.30XA - Fall on same level, unspecified, initial encounter Status: Acute Assessment and Plan: As above (4) Hyperlipidemia: Code(s): E78.5 - Hyperlipidemia, unspecified Status: Chronic Assessment and Plan: AST/ALT okay. Continue statin therapy (5) Hypothyroidism: Code(s): E03.9 - Hypothyroidism, unspecified Status: Chronic Assessment and Plan: Stable. Continue Synthroid (6) Hypertension: Code(s): I10 - Essential (primary) hypertension Status: Chronic Assessment and Plan: Patient's blood pressure was reviewed on 12/17 Blood pressure remains well controlled. Will continue to monitor (7) Atrial fibrillation: Code(s): I48.91 - Unspecified atrial fibrillation Status: Chronic Assessment and Plan: Rate controlled with metoprolol Eliquis was on hold for surgery but now resumed Follow Plan DVT prophylaxis - Eliquis Code status - Full Subjective Date/time seen: 12/18/23 14:04 Interval history: 88yo female with AFib, CMP/CHF and HTN here for hip pain after a fall. Assuming care. Chart reviewed. Patient's pain is well controlled. No Cp or SOB. She has been up walking to the BR with therpay. Exam Narrative: AF 97.3 116/70 65 20 97% ra Gen - NARD Chest - right base crackles o/w clear. CV - irregularly irregular Abd - Soft, NT/ND, Positive BS Ext - No pedal edema. Left hip incision is clean, dry and intact. No excessive bruising Neuro - Alert and appropriate Psych - Nml mood and affect Skin - Warm and dry Objective Data Vital Signs Vital Signs: Vital Signs - 24 hr 12/17/23 14:38 12/17/23 15:05 12/17/23 15:15 Temperature 98.8 F Pulse Rate 93 109 H 108 H Respiratory Rate 16 20 Blood Pressure 158/97 H 166/110 H Pulse Oximetry 96 96 Oxygen Delivery Simple Face Mask Simple Face Mask Oxygen Flow Rate 6 6 Fraction of Inspired Oxygen 12/17/23 15:20 12/17/23 15:25 12/17/23 15:35 Temperature 98.4 F Pulse Rate 108 H 106 H 94 Respiratory Rate 20 18 16 Blood Pressure 156/120 H 136/83 142/98 H Pulse Oximetry 96 87 L 94 Oxygen Delivery Room Air Nasal Cannula Nasal Cannula Oxygen Flow Rate 3 3 Fraction of Inspired Oxygen 12/17/23 14:50 12/17/23 16:39 12/17/23 15:48 Temperature 98.0 F Pulse Rate 105 H 90 Respiratory Rate 20 18 Blood Pressure 151/97 H 145/68 H Pulse Oximetry 96 94 100 Oxygen Delivery Simple Face Mask Nasal Cannula Oxygen Flow Rate 6 3 Fraction of Inspired Oxygen 32 12/17/23 16:00 12/17/23 16:03 12/17/23 16:33 Temperature 98.0 F 98.0 F 97.9 F Pulse Rate 69 88 92 Respiratory Rate 18 18 18 Blood Pressure 120/45 L 145/66 H 132/54 L Pulse Oximetry 90 100 92 Oxygen Delivery Oxygen Flow Rate Fraction of Inspired Oxygen 12/17/23 17:33 12/17/23 21:33 12/17/23 20:00 Temperature 97.9 F 97.7 F Pulse Rate 88
--- NOTE | 2023-12-18 14:16 | WPDANESPN ---
Anes - Prog Note Post-Op Date/Time: 12/18/23 14:16 Cardiovascular status: normal Respiratory status: normal Airway patency: baseline Mental status: baseline Post-Op hydration status: normal Vital Signs: Last Vital Signs Temp 36.3 C L 12/18/23 13:33 Pulse 65 12/18/23 13:33 Resp 20 12/18/23 13:33 BP 116/70 12/18/23 13:33 Pulse Ox 97 12/18/23 13:33 O2 Del Method Room Air 12/18/23 10:24 O2 Flow Rate 3 12/17/23 16:39 FiO2 32 12/17/23 20:00 Pain Score (VAS): 0 I/O: Intake & Output 12/17/23 12/18/23 12/18/23 23:59 07:59 15:59 Intake Total 50 1050 1360 Output Total 400 1000 Balance -144 50 2476 Laboratory Tests 12/18/23 06:06 12/18/23 06:06 12/18/23 06:06 WBC 8.3 RBC 2.62 L Hgb 7.9 L Hct 25.4 L MCV 96.9 MCH 30.2 MCHC 31.1 L RDW 14.0 Plt Count 75 L MPV 12.7 H Immature Gran % (Auto) 1.0 H Neut % (Auto) 79.7 H Lymph % (Auto) 9.4 L [place] % (Auto) 9.8 H Eos % (Auto) 0.0 Baso % (Auto) 0.1 L Lymph # (Auto) 0.78 L [place] # (Auto) 0.8 H Eos # (Auto) 0.0 Baso # (Auto) 0.0 Abs Immat Gran (auto) 0.08 H Absolute Neuts (auto) 6.6 Absolute Nucleated RBC 0.000 Nucleated RBC % 0.0 % Immature Plt Fraction 10.1 Sodium 138 Potassium 4.2 Chloride 106 Carbon Dioxide 24 Anion Gap 8 BUN 15 D Creatinine 0.80 Estim Creat Clear Calc 37 Estimated GFR > 60 Glucose 131 H Calcium 8.0 L Magnesium 2.2 Total Bilirubin 0.7 AST 22 ALT 13 Alkaline Phosphatase 62 Total Protein 5.0 L Albumin 2.9 L Post-procedural complaints: none Patient Feedback: Patient satisfied with anesthetic care.
--- NOTE | 2023-12-18 18:08 | PM.PNORT ---
Progress Note: A&P Assessment and Plan (1) Intertrochanteric fracture of left hip: Code(s): S72.142A - Displaced intertrochanteric fracture of left femur, initial encounter for closed fracture Status: Acute Assessment and Plan: S/P ORIF Right IT FX. Doing oK. Subjective Subjective Date/Time Seen: 12/18/23 18:08 Post Op day: 1 Principal diagnosis: Right IT Fracture Review of Systems Review of Systems: All systems are reviewed and are negative unless stated otherwise in the HPI. Exam Narrative: Pain controlled. Wiggles toes. Up today. Objective Data Vital Signs Vital Signs: Vital Signs - 24 hr 12/17/23 21:33 12/17/23 20:00 12/18/23 05:33 Temperature 97.7 F 98.0 F Pulse Rate 96 96 93 Respiratory Rate 20 20 18 Blood Pressure 121/63 132/80 Pulse Oximetry 98 98 99 Oxygen Delivery Room Air Fraction of Inspired Oxygen 32 12/18/23 08:49 12/18/23 09:07 12/18/23 10:24 Temperature Pulse Rate 93 Respiratory Rate Blood Pressure Pulse Oximetry Oxygen Delivery Room Air Room Air Fraction of Inspired Oxygen 12/18/23 13:33 Temperature 97.3 F L Pulse Rate 65 Respiratory Rate 20 Blood Pressure 116/70 Pulse Oximetry 97 Oxygen Delivery Fraction of Inspired Oxygen Intake/Output Intake/Output: Intake & Output 12/15/23 12/16/23 12/17/23 12/18/23 23:59 23:59 23:59 23:59 Intake Total 0954 238 9061 Output Total 850 1000 Balance 1070 -750 2336 Meds/Results Medications: Active Medications Generic Name Dose Route Start Last Admin Trade Name Freq PRN Reason Stop Dose Admin Acetaminophen 650 mg 12/16/23 14:33 Acetaminophen 325 Mg Tablet PO Q4H PRN Mild Pain (1-3) or Fever Hydrocodone Bitart/Acetaminophen 1 tab 12/16/23 14:33 12/18/23 09:12 Hydrocodone/Acetaminophen (*Crx) 5-325 Mg Tablet PO 1 tab Q4H PRN Administration Moderate Pain (4-6) Hydrocodone Bitart/Acetaminophen 1 tab 12/17/23 15:48 Hydrocodone/Acetaminophen (*Crx) 5-325 Mg Tablet PO Q4H PRN Pain Rated 4-6 Hydrocodone Bitart/Acetaminophen 1 tab 12/17/23 15:48 Hydrocodone/Acetaminophen (*Crx) 7.5-325 Mg Tablet PO Q4H PRN Pain Rated 7-10 Apixaban 2.5 mg 12/17/23 21:00 12/18/23 09:06 Apixaban 2.5 Mg Tablet PO 2.5 mg Q12HR HSARITA Administration Celecoxib 200 mg 12/18/23 08:00 12/18/23 09:06 Celecoxib 200 Mg Capsule PO 200 mg DAILY@0800 SHARITA Administration Cyanocobalamin 2,500 mcg 12/16/23 09:00 12/18/23 09:05 Cyanocobalamin 500 Mcg Tablet PO 2,500 mcg DAILY SHARITA Administration Furosemide 20 mg 12/16/23 09:00 12/18/23 10:29 Furosemide 20 Mg Tablet PO 20 mg MoWeFr@0900 SHARITA Administration Hydromorphone HCl 1 mg 12/17/23 15:48 Hydromorphone Hcl Inj (*Crx) 1 Mg/Ml Syr IV PUSH Q2H PRN Breakthrough Pain Rated 7-10 or NPO Hydromorphone HCl 0.5 mg 12/17/23 15:48 Hydromorphone Hcl Inj (*Crx) 1 Mg/Ml Syr IV PUSH Q2H PRN Breakthrough Pain Rated 4-6 or NPO Hydroxyzine Pamoate 50 mg 12/17/23 15:48 Hydroxyzine Pamoate 25 Mg Capsule PO Q4H PRN Itching Ibuprofen 800 mg in 200 mls @ 400 mls/hr 12/17/23 15:48 Caldolor 800 Mg/200 Ml IVPB Q6H PRN Breakthrough Pain Rated 1-3 or NPO Levothyroxine Sodium 75 mcg 12/16/23 11:00 12/18/23 04:37 Levothyroxine Sodium 75 Mcg Tablet PO 75 mcg DAILY@0630 SHARITA Administration Meclizine HCl 25 mg 12/16/23 09:00 12/18/23 18:00 Meclizine Hcl 25 Mg Tablet PO 25 mg BID SHARITA Administration Metoprolol Succinate 100 mg 12/16/23 09:00 12/18/23 09:07 Metoprolol Succinate Ext Rel 100 Mg Tabcr PO 100 mg QAM SHARITA Administration Naloxone HCl 0.1 mg 12/17/23 15:48 Naloxone Hcl 0.4 Mg/Ml Vial IV PUSH Q2M PRN Opiate Reversal Ondansetron HCl 4 mg 12/17/23 15:48 Ondansetron Inj 4 Mg/2 Ml Vial IV PUSH Q4H PRN Nausea And Vomiting Polyethylene Glyc
[2023-12-18 21:03] VITALS: BP 118/90; PULSE 63; RESP 20; TEMP 36.9; O2SAT 92
[2023-12-18 22:14] VITALS: O2SAT 93
[2023-12-19 05:28] VITALS: BP 100/60; PULSE 70; RESP 18; TEMP 36.9; O2SAT 100
[2023-12-19] MEDS: LEVOTHYROXINE SODIUM 75 MCG TABLET PO (05:44)
[2023-12-19 06:38] LABS: Basophils Percent Auto 0.3 % (0.2-1.2); Eosinophils Absolute Auto 0.1 K/mm3 (0-0.3); Eosinophils Percent Auto 1.4 % (0-4.4); Hematocrit 24.1 % (37.0-47.0); Hemoglobin 7.5 g/dL (12.0-15.0); Immature Granulocyte Absolute 0.05 K/mm3 (0.00-0.031); Immature Granulocyte Percent A 0.8 % (0-0.5); Immature Platelet Fraction Pct 10.1 % (0.9-11.2); Lymphocytes Absolute Auto 1.25 K/mm3 (0.9-3.2); Lymphocytes Percent Auto 18.8 % (18.3-44.2); Mean Corpuscular HGB Conc 31.1 g/dl (32-36); Mean Corpuscular Hemoglobin 30.6 pg (26-34); Mean Corpuscular Volume 98.4 fl (80-100); Mean Platelet Volume 13.2 fl (7.4-10.4); Monocytes Absolute Auto 0.8 K/mm3 (0.1-0.6); Monocytes Percent Auto 11.6 % (2.6-8.5); Neutrophils Absolute Auto 4.5 K/mm3 (1.3-6.7); Neutrophils Percent Auto 67.1 % (45.5-73.1); Platelet Count Result 73 k/mm3 (150-375); Red Blood Count 2.45 M/mm3 (4.2-5.4); Red Cell Distribution Width 14.3 % (11.5-14.5); White Blood Count 6.6 K/mm3 (4.5-10.0)
[2023-12-19 06:52] LABS: Alanine Aminotransferase 10 U/L (6-35); Albumin Level 2.9 g/dL (3.5-5.1); Alkaline Phosphatase 60 U/L (38-126); Anion Gap 6 mmol/L (4-12); Aspartate Amino Transferase 24 U/L (14-36); Bilirubin,Total 1.2 mg/dL (0.2-1.3); Blood Urea Nitrogen 18 mg/dL (7-17); Calcium 8.2 mg/dL (8.4-10.2); Carbon Dioxide 24 mmol/L (22-30); Chloride 107 mmol/L (98-107); Estimated CRCL calculation 37 ml/min; Estimated Glomerular Filt Rate > 60; Glucose 101 mg/dL (65-110); Magnesium 2.3 mg/dL (1.6-2.3); Potassium 4.3 mmol/L (3.4-5.0); Sodium 137 mmol/L (137-145)
--- NOTE | 2023-12-19 07:07 | PM.PNORT ---
Progress Note: A&P Assessment and Plan (1) Intertrochanteric fracture of left hip: Code(s): S72.142A - Displaced intertrochanteric fracture of left femur, initial encounter for closed fracture Status: Acute Assessment and Plan: Patient is status postop reduction internal fixation left hip fracture. She had an intertrochanteric fracture. She is progressing reasonably. Will need help in rehab. Follow-up in the office in 2 weeks. Subjective Subjective Date/Time Seen: 12/19/23 07:07 Post Op day: 2 Principal diagnosis: LEFt intertrochanteric fracture Review of Systems Review of Systems: All systems are reviewed and are negative unless stated otherwise in the HPI. Exam Narrative: Patient wiggles toes is up to the chair. Neurologically she appears to be intact. The dressing is intact. Objective Data Vital Signs Vital Signs: Vital Signs - 24 hr 12/18/23 08:49 12/18/23 09:07 12/18/23 10:24 Temperature Pulse Rate 93 Respiratory Rate Blood Pressure Pulse Oximetry Oxygen Delivery Room Air Room Air 12/18/23 13:33 12/18/23 21:03 12/19/23 05:28 Temperature 97.3 F L 98.5 F 98.5 F Pulse Rate 65 63 70 Respiratory Rate 20 20 18 Blood Pressure 116/70 118/90 100/60 Pulse Oximetry 97 92 100 Oxygen Delivery 12/18/23 22:14 Temperature Pulse Rate Respiratory Rate Blood Pressure Pulse Oximetry 93 Oxygen Delivery Room Air Intake/Output Intake/Output: Intake & Output 12/16/23 12/17/23 12/18/23 12/19/23 23:59 23:59 23:59 23:59 Intake Total 7749 428 2362 100 Output Total 850 1600 450 Balance 1070 -750 2086 -350 Meds/Results Medications: Active Medications Generic Name Dose Route Start Last Admin Trade Name Freq PRN Reason Stop Dose Admin Acetaminophen 650 mg 12/16/23 14:33 Acetaminophen 325 Mg Tablet PO Q4H PRN Mild Pain (1-3) or Fever Hydrocodone Bitart/Acetaminophen 1 tab 12/16/23 14:33 12/18/23 09:12 Hydrocodone/Acetaminophen (*Crx) 5-325 Mg Tablet PO 1 tab Q4H PRN Administration Moderate Pain (4-6) Hydrocodone Bitart/Acetaminophen 1 tab 12/17/23 15:48 Hydrocodone/Acetaminophen (*Crx) 5-325 Mg Tablet PO Q4H PRN Pain Rated 4-6 Hydrocodone Bitart/Acetaminophen 1 tab 12/17/23 15:48 Hydrocodone/Acetaminophen (*Crx) 7.5-325 Mg Tablet PO Q4H PRN Pain Rated 7-10 Apixaban 2.5 mg 12/17/23 21:00 12/18/23 20:15 Apixaban 2.5 Mg Tablet PO 2.5 mg Q12HR SHARITA Administration Celecoxib 200 mg 12/18/23 08:00 12/18/23 09:06 Celecoxib 200 Mg Capsule PO 200 mg DAILY@0800 SHARITA Administration Cyanocobalamin 2,500 mcg 12/16/23 09:00 12/18/23 09:05 Cyanocobalamin 500 Mcg Tablet PO 2,500 mcg DAILY SHARITA Administration Furosemide 20 mg 12/16/23 09:00 12/18/23 10:29 Furosemide 20 Mg Tablet PO 20 mg MoWeFr@0900 [facility] Administration Hydromorphone HCl 1 mg 12/17/23 15:48 Hydromorphone Hcl Inj (*Crx) 1 Mg/Ml Syr IV PUSH Q2H PRN Breakthrough Pain Rated 7-10 or NPO Hydromorphone HCl 0.5 mg 12/17/23 15:48 Hydromorphone Hcl Inj (*Crx) 1 Mg/Ml Syr IV PUSH Q2H PRN Breakthrough Pain Rated 4-6 or NPO Hydroxyzine Pamoate 50 mg 12/17/23 15:48 Hydroxyzine Pamoate 25 Mg Capsule PO Q4H PRN Itching Ibuprofen 800 mg in 200 mls @ 400 mls/hr 12/17/23 15:48 Caldolor 800 Mg/200 Ml IVPB Q6H PRN Breakthrough Pain Rated 1-3 or NPO Levothyroxine Sodium 75 mcg 12/16/23 11:00 12/19/23 05:44 Levothyroxine Sodium 75 Mcg Tablet PO 75 mcg DAILY@0630 [facility] Administration Meclizine HCl 25 mg 12/16/23 09:00 12/18/23 18:00 Meclizine Hcl 25 Mg Tablet PO 25 mg BID SHARITA Administration Metoprolol Succinate 100 mg 12/16/23 09:00 12/18/23 09:07 Metoprolol Succinate Ext Rel 100 Mg Tabcr PO 100 mg QAM SHARITA Administration Naloxone HCl 0.1 mg 12/17/23 15:48 Naloxone Hcl 0.4 Mg/Ml Vial IV PUSH Q2M
[2023-12-19 08:00] VITALS: PULSE 70; RESP 18; O2SAT 100
--- NOTE | 2023-12-19 09:36 | PCOTNOTE ---
The patient treatment was not able to be completed patient is still eating breakfast. Will plan to continue treatment per plan of care.
[2023-12-19] MEDS: POTASSIUM CHLORIDE 20 MEQ PACKET (FOR LIQUID) PO (09:39)
[2023-12-19] MEDS: MECLIZINE HCL 25 MG TABLET PO ×2 (09:39→17:47)
[2023-12-19] MEDS: CELECOXIB 200 MG CAPSULE PO (09:39)
[2023-12-19] MEDS: SENNA/DOCUSATE SODIUM TABLET 2 TAB PO ×2 (09:39→17:47)
[2023-12-19] MEDS: CHOLECALCIFEROL 1,000 UNITS TABLET 2000 UNITS PO (09:39)
[2023-12-19] MEDS: METOPROLOL SUCCINATE EXT REL 100 MG TABCR PO (09:39)
[2023-12-19] MEDS: APIXABAN 2.5 MG TABLET PO (09:39)
[2023-12-19] MEDS: SIMVASTATIN 20 MG TABLET PO (09:39)
[2023-12-19] MEDS: polyethylene glycoL 3350 17 GM POWD.PACK PO (09:40)
[2023-12-19] MEDS: HYDROcodone/acetaminophen (*CRX) 7.5-325 MG TABLET 1 TAB PO (09:40)
[2023-12-19] MEDS: CYANOCOBALAMIN 500 MCG TABLET 2500 MCG PO (09:40)
--- NOTE | 2023-12-19 13:33 | PM.DS ---
DS: Admitting Diagnosis Discharge Date 12/19/23 Admitting Diagnosis Hip pain DS: Discharge Diagnosis Discharge Diagnosis (1) Intertrochanteric fracture of left hip: Code(s): S72.142A - Displaced intertrochanteric fracture of left femur, initial encounter for closed fracture Status: Acute (2) Anemia: Code(s): D64.9 - Anemia, unspecified Status: Acute (3) Fall from ground level: Code(s): W18.30XA - Fall on same level, unspecified, initial encounter Status: Acute (4) Hyperlipidemia: Code(s): E78.5 - Hyperlipidemia, unspecified Status: Chronic (5) Hypothyroidism: Code(s): E03.9 - Hypothyroidism, unspecified Status: Chronic (6) Hypertension: Code(s): I10 - Essential (primary) hypertension Status: Chronic (7) Atrial fibrillation: Code(s): I48.91 - Unspecified atrial fibrillation Status: Chronic DS: Summary Hospital Course Reason for hospitalization: 88yo female with AFib, CMP/CHF and HTN here for hip pain after a fall. Please see H&P for details. Hospital Course: Patient present with hip pain after a ground level fall landing on left hip. Left hip and pelvis x-ray showing acute comminuted inter trochanteric fracture proximal femur. Orthopedic surgery consulted and patient went for an open reduction internal fixation the left hip 12/16. Pain well controlled. She started PT/OT. Patient normally on Eliquis for AFib and this was resumed. Hgb normal on admission and has dropped to 7.5 but stable past 2 days. Suspect acute blood loss as a component. EBL 200mL from the procedure. She did well with therapy. She is mildly confused but patietn and family state this is more longstanding. Family at bedside and they wre updated with patient's permission. She overall did well and was able to be discharged on 12/19/23. Status at Discharge Cognitive/behavioral status at discharge: stable Time Spent with Patient Time attestation: Total time spent providing and/or coordinating discharge services: 34 minutes Time spent: Greater than 30 minutes Exam Narrative: AF 98.5 100/60 70 18 100% ra Gen - NARD Chest - CTA bilaterally, nml RR CV - irregularly irregular Abd - Soft, NT/ND, Positive BS Ext - trace left LE edema. Left hip dressing is clean, dry and intact. No excessive bruising Neuro - Alert and oriented x3 (not month). no focal weakness Psych - Nml mood and affect Skin - Warm and dry DS: Data Data Completed and Pending Labs on day of discharge: Labs from last 24 hours 12/19/23 06:15 WBC 6.6 RBC 2.45 L Hgb 7.5 L Hct 24.1 L MCV 98.4 MCH 30.6 MCHC 31.1 L RDW 14.3 Plt Count 73 L MPV 13.2 H Immature Gran % (Auto) 0.8 H Neut % (Auto) 67.1 Lymph % (Auto) 18.8 [place] % (Auto) 11.6 H Eos % (Auto) 1.4 Baso % (Auto) 0.3 Lymph # (Auto) 1.25 [place] # (Auto) 0.8 H Eos # (Auto) 0.1 Baso # (Auto) 0.0 Abs Immat Gran (auto) 0.05 H Absolute Neuts (auto) 4.5 Absolute Nucleated RBC 0.000 Nucleated RBC % 0.0 % Immature Plt Fraction 10.1 Sodium 137 Potassium 4.3 Chloride 107 Carbon Dioxide 24 Anion Gap 6 BUN 18 H Creatinine 0.80 Estim Creat Clear Calc 37 Estimated GFR > 60 Glucose 101 Calcium 8.2 L Magnesium 2.3 Total Bilirubin 1.2 AST 24 ALT 10 Alkaline Phosphatase 60 Total Protein 5.0 L Albumin 2.9 L Discharge Plan Discharge Attending physician on discharge: Juan Rizo Consulting providers: Lottie Villanueva; Brandyn Dean Discharging Clinician: Juan Rizo Anticipated Discharge Date/Time: 12/19/23 13:39 Patient Disposition: SNF Activity: other - see discharge instructions Diet: regular Discharge Instructions: Routine post-operative hip fracture repair instructions Check blood pressure 1 to 2 times a day. Record for the doctor's review. Take precautions to avoid falls. Rise slowly from a lying or sitting position. Paus
[2023-12-19 14:00] VITALS: BP 118/78; PULSE 86; TEMP 36.5; O2SAT 93
[2023-12-19 14:52] LABS: SARS-CoV-2 RNA PCR Positive (Negative)
[2023-12-19 20:59] VITALS: BP 135/58; PULSE 77; RESP 16; TEMP 36.7; O2SAT 100
[2023-12-19] MEDS: hydrOXYzine pamoate 25 MG CAPSULE 50 MG PO (21:28)
[2023-12-19] MEDS: HYDROcodone/acetaminophen (*CRX) 5-325 MG TABLET 1 TAB PO (21:29)
[2023-12-19 21:59] LABS: Hematocrit 23.4 % (37.0-47.0); Hemoglobin 7.3 g/dL (12.0-15.0)
[2023-12-20] VITALS (8 sets, daily range): BP systolic 114–133; BP diastolic 61–87; PULSE 62–92; RESP 12–20; TEMP 36.4–36.9; O2SAT 92–100
[2023-12-20] MEDS: LEVOTHYROXINE SODIUM 75 MCG TABLET PO (05:56)
[2023-12-20 07:02] LABS: Basophils Percent Auto 0.6 % (0.2-1.2); Eosinophils Absolute Auto 0.2 K/mm3 (0-0.3); Eosinophils Percent Auto 3.1 % (0-4.4); Hematocrit 22.9 % (37.0-47.0); Immature Granulocyte Absolute 0.03 K/mm3 (0.00-0.031); Immature Granulocyte Percent A 0.6 % (0-0.5); Immature Platelet Fraction Pct 9.7 % (0.9-11.2); Lymphocytes Absolute Auto 1.17 K/mm3 (0.9-3.2); Lymphocytes Percent Auto 24.3 % (18.3-44.2); Mean Corpuscular HGB Conc 30.6 g/dl (32-36); Mean Corpuscular Hemoglobin 30.2 pg (26-34); Mean Corpuscular Volume 98.7 fl (80-100); Mean Platelet Volume 13.1 fl (7.4-10.4); Monocytes Absolute Auto 0.6 K/mm3 (0.1-0.6); Monocytes Percent Auto 12.2 % (2.6-8.5); Neutrophils Absolute Auto 2.9 K/mm3 (1.3-6.7); Neutrophils Percent Auto 59.2 % (45.5-73.1); Platelet Count Result 86 k/mm3 (150-375); Red Blood Count 2.32 M/mm3 (4.2-5.4); Red Cell Distribution Width 14.4 % (11.5-14.5); White Blood Count 4.8 K/mm3 (4.5-10.0)
[2023-12-20 07:09] LABS: Alanine Aminotransferase 9 U/L (6-35); Albumin Level 2.8 g/dL (3.5-5.1); Alkaline Phosphatase 58 U/L (38-126); Anion Gap 7 mmol/L (4-12); Aspartate Amino Transferase 21 U/L (14-36); Bilirubin,Total 1.8 mg/dL (0.2-1.3); Blood Urea Nitrogen 17 mg/dL (7-17); Calcium 7.9 mg/dL (8.4-10.2); Carbon Dioxide 22 mmol/L (22-30); Chloride 108 mmol/L (98-107); Estimated CRCL calculation 37 ml/min; Estimated Glomerular Filt Rate > 60; Glucose 95 mg/dL (65-110); Magnesium 2.3 mg/dL (1.6-2.3); Potassium 3.6 mmol/L (3.4-5.0); Sodium 137 mmol/L (137-145)
[2023-12-20] MEDS: MECLIZINE HCL 25 MG TABLET PO ×2 (09:52→18:01)
[2023-12-20] MEDS: FUROSEMIDE 20 MG TABLET PO (09:52)
[2023-12-20] MEDS: CHOLECALCIFEROL 1,000 UNITS TABLET 2000 UNITS PO (09:52)
[2023-12-20] MEDS: METOPROLOL SUCCINATE EXT REL 100 MG TABCR PO (09:52)
[2023-12-20] MEDS: CELECOXIB 200 MG CAPSULE PO (09:53)
[2023-12-20] MEDS: POTASSIUM CHLORIDE 20 MEQ PACKET (FOR LIQUID) PO (09:53)
[2023-12-20] MEDS: SIMVASTATIN 20 MG TABLET PO (09:53)
[2023-12-20] MEDS: CYANOCOBALAMIN 500 MCG TABLET 2500 MCG PO (09:53)
[2023-12-20] MEDS: HYDROcodone/acetaminophen (*CRX) 5-325 MG TABLET 1 TAB PO ×2 (09:53→13:21)
--- NOTE | 2023-12-20 13:21 | PM.IMPN ---
Progress Note: A&P Assessment and Plan (1) COVID: Code(s): U07.1 - COVID-19 Status: Acute Assessment and Plan: Patient tested positive for COVID as a screening test. She is asymptomatic. Will check CXR. Follow for now (2) Anemia: Code(s): D64.9 - Anemia, unspecified Status: Acute Assessment and Plan: Hgb normal on admission and has dropped to 7.0 today She was on Eliquis but do not see excessive bruising but still suspect acute blood loss as a component. EBL 200mL Could be partially dilution. Will transfuse 1U PRBC. (3) Intertrochanteric fracture of left hip: Code(s): S72.142A - Displaced intertrochanteric fracture of left femur, initial encounter for closed fracture Status: Acute Assessment and Plan: Patient present with hip pain after a ground level fall landing on left hip. Left hip and pelvis x-ray showing acute comminuted inter trochanteric fracture proximal femur Orthopedic surgery consulted and patient went for an open reduction internal fixation the left hip 12/16 Pain well controlled. Continue pain control Patient normally on Eliquis; currently on hold PT/OT (4) Fall from ground level: Code(s): W18.30XA - Fall on same level, unspecified, initial encounter Status: Acute Assessment and Plan: As above (5) Hyperlipidemia: Code(s): E78.5 - Hyperlipidemia, unspecified Status: Chronic Assessment and Plan: AST/ALT okay. Continue statin therapy (6) Hypothyroidism: Code(s): E03.9 - Hypothyroidism, unspecified Status: Chronic Assessment and Plan: Stable. Continue Synthroid (7) Hypertension: Code(s): I10 - Essential (primary) hypertension Status: Chronic Assessment and Plan: Patient's blood pressure was reviewed on 12/19 BP good control Will continue to monitor (8) Atrial fibrillation: Code(s): I48.91 - Unspecified atrial fibrillation Status: Chronic Assessment and Plan: Rate controlled with metoprolol Eliquis was on hold for surgery and again for the anemia Follow Plan DVT prophylaxis - SCDs Code status - Full Subjective Date/time seen: 12/20/23 13:21 Interval history: 88yo female with AFib, CMP/CHF and HTN here for hip pain after a fall. Discharge held since she tested positive for COVID. Slept well last night. No CP or SOB. Has mild cough but states this is chronic. Had diarhea stool overnight once. no abd pain. No bloody stools. Complains of dry mouth but not dry eyes. Exam Narrative: AF 98.5 122/85 80 12 96% ra Gen - NARD Chest - CTA bilaterally, nml RR CV - irregularly irregular Abd - Soft, NT/ND, Positive BS Ext - trace left LE edema. Left hip dressing with small serous staining noted. Psych - Nml mood and affect Skin - Warm and dry Objective Data Vital Signs Vital Signs: Vital Signs - 24 hr 12/19/23 14:00 12/19/23 20:59 12/19/23 20:00 Temperature 97.7 F 98.1 F Pulse Rate 86 77 Respiratory Rate 16 Blood Pressure 118/78 135/58 L Pulse Oximetry 93 100 Oxygen Delivery Room Air 12/20/23 05:50 12/20/23 09:52 12/20/23 08:20 Temperature 98.5 F Pulse Rate 82 80 Respiratory Rate 12 Blood Pressure 122/85 Pulse Oximetry 96 Oxygen Delivery Room Air Intake/Output Intake/Output: Intake & Output 12/17/23 12/18/23 12/19/23 12/20/23 23:59 23:59 23:59 23:59 Intake Total 100 3686 940 450 Output Total 850 1600 450 600 Balance -750 2086 490 -150 Meds/Results Medications: Active Medications Generic Name Dose Route Start Last Admin Trade Name Freq PRN Reason Stop Dose Admin Acetaminophen 650 mg 12/16/23 14:33 Acetaminophen 325 Mg Tablet PO Q4H PRN Mild Pain (1-3) or Fever Hydrocodone Bitart/Acetaminophen 1 tab 12/16/23 14:33 12/20/23 09:53 Hydrocodone/Acetaminophen (*Crx) 5-325 Mg Tablet PO 1 tab Q4H PRN Administra
[2023-12-20] MEDS: SODIUM CHLORIDE 0.9% IV 250 ML 30 ML IV CONT (15:47)
== END 2023-12-20 21:10 | disposition swing bed (61) | DRG 480 ==
LOC: ANHED 06:45 → ANH3MEDSUR 06:52
PROVIDERS: Family Medicine; Nurse Practitioner; Nurse Practitioner Acute Care; Orthopaedic Surgery; Admitting Provider Internal Medicine; Emergency Provider Emergency Medicine; PCP Internal Medicine; Visit Provider Internal Medicine
PROC: 0QS734Z Reposition Left Upper Femur with Internal Fixation Device, Percutaneous Approach (ICD-10-PCS; CPT 27245; principal; 2023-12-17 13:00)
DX: S72.142A Displaced intertrochanteric fracture of left femur, initial encounter for closed fracture (principal); U07.1 COVID-19; I42.9 Cardiomyopathy, unspecified; I48.20 Chronic atrial fibrillation, unspecified; D62 Acute posthemorrhagic anemia; I11.0 Hypertensive heart disease with heart failure; I50.9 Heart failure, unspecified; E78.5 Hyperlipidemia, unspecified; E03.9 Hypothyroidism, unspecified; W19.XXXA Unspecified fall, initial encounter; Z79.01 Long term (current) use of anticoagulants
CPT/HCPCS: 36415; 36430; 71045; 73502; 80048; 80053; 83735; 85014; 85018; 85025; 85055; 85610; 85730; 86850; 86900; 86901; 86923; 87635; 96374; 96375; 97110; 97116; 97161; 97165; 97530; 97535; 99199; 99285; A9270; C1713; J0690; J1100; J2270; J2371; J2405; J2704; J3010; J7030; J7050; J7120; P9016

== ENCOUNTER 2023-12-20 21:48 | Inpatient (IN) | payer MEDICARE, SELFPAY ==
[2023-12-20 22:00] VITALS: BP 160/81; PULSE 81; RESP 18; TEMP 36.3; O2SAT 98
[2023-12-20 22:18] VITALS: BMI 21.8
--- NOTE | 2023-12-20 22:18 | ADMGEN ---
This patient, Renata Brown, was admitted to 2nd Floor Room 209-1. Patient/family oriented to hospital policies and general routines including ID bracelet, bed and alarms, visiting hours, pain management, procedures, bathroom and other care routines, personal items, smoking policy, room service/diet, and visiting hours. Information on how to activate the Rapid Response Team has been discussed. Patient/Family are encouraged to report perceived risks to care and to ask questions if they do not understand what they are told or what they should do.
[2023-12-20 23:54] VITALS: BP 134/89; PULSE 83; RESP 18; TEMP 36.1; O2SAT 96
[2023-12-21] MEDS: HYDROcodone/acetaminophen (*CRX) 5-325 MG TABLET 1 TAB PO ×4 (04:51→20:28)
[2023-12-21 05:10] LABS: Hematocrit 31.2 % (35.0-42.0); Hemoglobin 9.7 g/dL (11.7-13.8)
--- NOTE | 2023-12-21 05:43 | PC.NURSE ---
Incontinent of large amount of urine, states usually wear these all night and they keep me dry. States she went at least four times during night. Nurse had checked with patient at midnight and 230am, she said she was dry and didn't need to go to the bathroom. Adult briefs felt dry. Explained need to call for help and get up to void or be changed to decrease risk of infection to wound. Patient agrees to do same, states she didn't know.
[2023-12-21] MEDS: LEVOTHYROXINE SODIUM 75 MCG TABLET PO (06:04)
--- NOTE | 2023-12-21 06:37 | PC.NURSE ---
Moderate amount of serosangenous drainage noted on left hip dressing. 4x4 sterile gauze sponge taped to reinforce dressing. Patient xiomy. well. Incontinent of urine. Pericare given and adult diaper applied as patient states adult brief doesn't fit right. States again she wears Attends and is incontinent at home and pees almost continuously.
[2023-12-21 08:00] VITALS: BP 170/77; PULSE 77; RESP 18; TEMP 36.6; O2SAT 97
--- NOTE | 2023-12-21 08:12 | PM.IMHP ---
H&P: HPI History of Present Illness Date/Time: 12/21/23 08:12 Chief Complaint: Left Intertrochanteric Hip fracture Narrative: Patient is a 88-year-old female who was admitted to [facility] for continued rehabilitation following a left intertrochanteric hip fracture repair following a fall at home. patient does have a past medical history of atrial fibrillation, cardiomyopathy, CHF, HLD, HTN, and hypothyroidism. initially patient was set to go to [facility] however patient COVID came back negative and she [facility]. Patient was asymptomatic with COVID oxygen saturation at 100% on room air denied any shortness of breath, chest pain, fever, chills with a normal WBC. Patient did receive 1 dose remdesivir prior to arrival we will continue with supportive care. Prior to discharge patient's HGB dropped to 7.0 from 10.1 however is likely expected following surgical repair of hip fracture patient was given 1 unit PRBCs and follow-up HGB 9.7. patient denied any chest pain, shortness of breath, dizziness, abdominal pain, nausea, vomiting, fever or chills. 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 EF as low as 20 to 25% in September 2020 but improved to 57% in January 2021. Congestive heart failure Hyperlipidemia Hypertension Hypothyroidism Surgical History Surgical History History of bilateral cataract extraction History of hysterectomy for benign disease Family History Family History Father Tuberculosis Social History Social History Social History: Surrogate decision maker: Celina Catarino and Leda Yordan, daughters. She has 3 children, 2 girls and a boy. Her daughter lives with her. 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 Code status: Full code. Smoking status: Never smoker Alcohol intake: former Drinks per week: 1 Substance use: never Substance use type: does not use Do You Feel Safe in your Home?: Yes Lack of Transportation: YES Lack of Food: Never True Current Housing: I Have Housing Concerned About Future Housing: No Difficulty Paying Gas/Electric Bills: No Difficulty Paying for Meds: No Currently Unemployed: No Education: High School Diploma/GED Difficulty w/ Childcare or Family Care: No Additional living arrangements comments: The patient is and lives in her own home in [place]. Additional occupation/education comments: Retired. Spiritual care concerns: No Meds Home Medications and Allergies Home Medications Medication Instructions Recorded Confirmed Type levothyroxine 75 mcg tablet 75 mcg PO DAILY 10/13/20 12/20/23 History simvastatin 20 mg tablet 20 mg PO DAILY 10/13/20 12/20/23 History apixaban 2.5 mg tablet (Eliquis) 2.5 mg PO Q12HR #60 tabs 10/17/20 12/20/23 Rx metoprolol succinate 100 mg 100 mg PO QAM #30 tabs 10/17/20 12/20/23 Rx tablet,extended release 24 hr (Toprol XL) meclizine 25 mg tablet 25 mg PO BID Dizziness 04/13/21 12/20/23 History Vitamin D3 2,500 unit PO DAILY 08/01/22 12/20/23 History cyanocobalamin (vitamin B-12) 2,500 mcg PO DAILY 08/01/22 12/20/23 History 2,500 mcg tablet furosemide 20 mg tablet (Lasix) 20 mg PO EVERY OTHER DAY PRN edema 12/16/23 12/20/23 History or weight gain potassium chloride 20 mEq oral 20 meq PO DAILY 12/16/23 12/20/23 History packet acetaminophen 325 mg tablet 650 mg PO Q4H PRN Mild Pain (1-5) 12/19/23 12/20/23 Rx Or Fever #30 tabs hydrocodone 5 mg-acetaminophen 325 1 tablet PO Q4H PRN pain (scale 12/19/23 12/20/23 Rx mg tablet score 6-10) #10 tabs
[2023-12-21] MEDS: polyethylene glycoL 3350 17 GM POWD.PACK PO (08:52)
[2023-12-21] MEDS: POTASSIUM CHLORIDE 20 MEQ PACKET (FOR LIQUID) PO (08:53)
[2023-12-21] MEDS: CHOLECALCIFEROL 5,000 UNITS TABLET 2500 UNITS PO (08:53)
[2023-12-21 08:54] VITALS: PULSE 80
[2023-12-21] MEDS: METOPROLOL SUCCINATE EXT REL 50 MG TABCR 100 MG PO (08:54)
[2023-12-21] MEDS: MECLIZINE HCL 25 MG TABLET PO ×2 (08:55→20:28)
[2023-12-21] MEDS: APIXABAN 2.5 MG TABLET PO ×2 (08:55→20:29)
[2023-12-21] MEDS: CYANOCOBALAMIN 500 MCG TABLET 2500 MCG PO (08:56)
[2023-12-21] MEDS: SIMVASTATIN 10 MG TABLET 20 MG PO (08:57)
--- NOTE | 2023-12-21 13:02 | PC.NURSE ---
Pts lonnie asking about CXR obtained at [facility] yesterday prior to d/c and transfer here. Report given, charge nurse informed of lonnie's concern. Pt given detailed instruction to use her incentive spirometry device that she has at bedside form [facility]. Encouraged to use it q2 hr while awake. Pt states she has had some phlegm that is clear and yellow in color that she has been spitting out. Order obtained to continue use of spirometry at this time.
[2023-12-21 16:00] VITALS: BP 121/68; PULSE 78; RESP 16; TEMP 36.4; O2SAT 97
--- NOTE | 2023-12-21 20:46 | PC.NURSE ---
Dressing to left hip changed due to being saturated with drainage. Sero-Sanginus drainage noted to the dressing. No foul smell noted. Clean island dressing applied to the 3 surgical areas. Patient tolerated well.
[2023-12-22] VITALS: BP 143/70; PULSE 82; RESP 16; TEMP 36.6; O2SAT 97
[2023-12-22] MEDS: HYDROcodone/acetaminophen (*CRX) 5-325 MG TABLET 1 TAB PO ×4 (01:35→18:10)
[2023-12-22] MEDS: LEVOTHYROXINE SODIUM 75 MCG TABLET PO (06:21)
[2023-12-22 08:00] VITALS: BP 156/99; PULSE 96; RESP 20; TEMP 36.6; O2SAT 100
[2023-12-22 08:58] VITALS: PULSE 96
[2023-12-22] MEDS: APIXABAN 2.5 MG TABLET PO ×2 (08:58→20:36)
[2023-12-22] MEDS: MECLIZINE HCL 25 MG TABLET PO ×2 (08:58→20:36)
[2023-12-22] MEDS: METOPROLOL SUCCINATE EXT REL 50 MG TABCR 100 MG PO (08:58)
[2023-12-22] MEDS: SIMVASTATIN 10 MG TABLET 20 MG PO (08:58)
[2023-12-22] MEDS: CYANOCOBALAMIN 500 MCG TABLET 2500 MCG PO (08:59)
[2023-12-22] MEDS: CHOLECALCIFEROL 5,000 UNITS TABLET 2500 UNITS PO (08:59)
[2023-12-22] MEDS: POTASSIUM CHLORIDE 20 MEQ PACKET (FOR LIQUID) PO (08:59)
[2023-12-22 14:17] LABS: Add Urine Microscopic? NO; Appearance Urine Clear (Clear); Bilirubin Urine Negative (Negative); Blood Urine Negative (Negative); Color Urine Light Yellow (Yellow); Glucose Urine UA Negative (Negative); Ketones Urine Negative (Negative); Leukocyte Esterase Ur Negative LEU/UL (Negative); Nitrate Urine Negative (Negative); Protein Urine Negative (Negative); Urobilinogen Urine 0.2 mg/dL (0.2-1.0)
[2023-12-22 16:00] VITALS: BP 146/101; PULSE 60; RESP 20; TEMP 35.8; O2SAT 93
[2023-12-22] MEDS: MELATONIN 5 MG TABLET PO (20:37)
[2023-12-23] VITALS: BP 126/74; PULSE 63; RESP 16; TEMP 36.4; O2SAT 96
[2023-12-23] MEDS: HYDROcodone/acetaminophen (*CRX) 5-325 MG TABLET 1 TAB PO ×5 (00:34→19:15)
[2023-12-23 05:28] LABS: Hematocrit 31.5 % (35.0-42.0); Hemoglobin 9.8 g/dL (11.7-13.8)
[2023-12-23] MEDS: LEVOTHYROXINE SODIUM 75 MCG TABLET PO (05:57)
[2023-12-23 08:00] VITALS: BP 144/89; PULSE 76; RESP 16; TEMP 35.9; O2SAT 98
--- NOTE | 2023-12-23 08:34 | PM.EVENT ---
Event Note Event Note Event Note: Patient doing well states pain is controlled with activity and it is a little easier for her to ambulate with assistance, goal is home following rehab.
[2023-12-23 09:41] VITALS: PULSE 76
[2023-12-23] MEDS: POTASSIUM CHLORIDE 20 MEQ PACKET (FOR LIQUID) PO (09:41)
[2023-12-23] MEDS: METOPROLOL SUCCINATE EXT REL 50 MG TABCR 100 MG PO (09:41)
[2023-12-23] MEDS: polyethylene glycoL 3350 17 GM POWD.PACK PO (09:41)
[2023-12-23] MEDS: CHOLECALCIFEROL 5,000 UNITS TABLET 2500 UNITS PO (09:42)
[2023-12-23] MEDS: MECLIZINE HCL 25 MG TABLET PO ×2 (09:42→20:15)
[2023-12-23] MEDS: CYANOCOBALAMIN 500 MCG TABLET 2500 MCG PO (09:42)
[2023-12-23] MEDS: APIXABAN 2.5 MG TABLET PO ×2 (09:42→20:14)
[2023-12-23] MEDS: SIMVASTATIN 10 MG TABLET 20 MG PO (09:42)
[2023-12-23 16:00] VITALS: BP 148/90; PULSE 96; RESP 20; TEMP 36.6; O2SAT 100
[2023-12-23] MEDS: FUROSEMIDE 20 MG TABLET PO (16:16)
[2023-12-23] MEDS: oxyBUTYnin CHLORIDE 2.5 MG TAB PO (16:16)
[2023-12-23] MEDS: MELATONIN 5 MG TABLET PO (20:15)
[2023-12-24] VITALS: BP 155/112; PULSE 83; RESP 18; TEMP 36.9; O2SAT 96
[2023-12-24] MEDS: HYDROcodone/acetaminophen (*CRX) 5-325 MG TABLET 1 TAB PO ×5 (00:30→21:43)
[2023-12-24] MEDS: LEVOTHYROXINE SODIUM 75 MCG TABLET PO (05:56)
[2023-12-24 07:39] VITALS: BP 128/61; PULSE 88; RESP 18; TEMP 36.6; O2SAT 98
[2023-12-24 07:47] VITALS: PULSE 88; RESP 18; O2SAT 98
[2023-12-24] MEDS: CYANOCOBALAMIN 500 MCG TABLET 2500 MCG PO (08:28)
[2023-12-24] MEDS: SIMVASTATIN 10 MG TABLET 20 MG PO (08:28)
[2023-12-24 08:29] VITALS: PULSE 88
[2023-12-24] MEDS: METOPROLOL SUCCINATE EXT REL 50 MG TABCR 100 MG PO (08:29)
[2023-12-24] MEDS: polyethylene glycoL 3350 17 GM POWD.PACK PO (08:29)
[2023-12-24] MEDS: CHOLECALCIFEROL 5,000 UNITS TABLET 2500 UNITS PO (08:29)
[2023-12-24] MEDS: APIXABAN 2.5 MG TABLET PO ×2 (08:30→21:43)
[2023-12-24] MEDS: oxyBUTYnin CHLORIDE 2.5 MG TAB PO ×2 (08:57→15:58)
[2023-12-24] MEDS: MECLIZINE HCL 25 MG TABLET PO ×2 (08:57→21:43)
[2023-12-24] MEDS: POTASSIUM CHLORIDE 20 MEQ PACKET (FOR LIQUID) PO (09:02)
[2023-12-24 16:40] VITALS: BP 145/91; PULSE 71; RESP 16; TEMP 36.2; O2SAT 98
[2023-12-24] MEDS: MELATONIN 5 MG TABLET PO (21:43)
[2023-12-25] VITALS: BP 132/92; PULSE 100; RESP 19; TEMP 36.1; O2SAT 97
[2023-12-25] MEDS: HYDROcodone/acetaminophen (*CRX) 5-325 MG TABLET 1 TAB PO ×5 (02:58→21:12)
[2023-12-25] MEDS: LEVOTHYROXINE SODIUM 75 MCG TABLET PO (06:18)
[2023-12-25 08:00] VITALS: BP 135/80; PULSE 95; RESP 14; TEMP 36.6; O2SAT 96
[2023-12-25] MEDS: CYANOCOBALAMIN 500 MCG TABLET 2500 MCG PO (09:21)
[2023-12-25] MEDS: POTASSIUM CHLORIDE 20 MEQ PACKET (FOR LIQUID) PO (09:21)
[2023-12-25] MEDS: CHOLECALCIFEROL 5,000 UNITS TABLET 2500 UNITS PO (09:22)
[2023-12-25] MEDS: SIMVASTATIN 10 MG TABLET 20 MG PO (09:22)
[2023-12-25 09:23] VITALS: PULSE 70
[2023-12-25] MEDS: APIXABAN 2.5 MG TABLET PO ×2 (09:23→21:12)
[2023-12-25] MEDS: MECLIZINE HCL 25 MG TABLET PO ×2 (09:23→21:12)
[2023-12-25] MEDS: oxyBUTYnin CHLORIDE 2.5 MG TAB PO ×2 (09:23→16:51)
[2023-12-25] MEDS: METOPROLOL SUCCINATE EXT REL 50 MG TABCR 100 MG PO (09:23)
[2023-12-25] MEDS: polyethylene glycoL 3350 17 GM POWD.PACK PO (09:24)
[2023-12-25] MEDS: ONDANSETRON HCL ODT 4 MG TABLET PO ×2 (09:35→21:12)
[2023-12-25 16:00] VITALS: BP 128/92; PULSE 93; RESP 18; TEMP 36.2; O2SAT 97
[2023-12-25 20:00] VITALS: PULSE 93; RESP 18; O2SAT 97
[2023-12-25] MEDS: MELATONIN 5 MG TABLET PO (21:12)
[2023-12-26] VITALS: BP 156/87; PULSE 75; RESP 17; TEMP 36.1; O2SAT 99
[2023-12-26] MEDS: HYDROcodone/acetaminophen (*CRX) 5-325 MG TABLET 1 TAB PO ×6 (02:05→21:33)
[2023-12-26] MEDS: LEVOTHYROXINE SODIUM 75 MCG TABLET PO (06:03)
[2023-12-26 08:00] VITALS: BP 133/89; PULSE 90; RESP 20; TEMP 36.4; O2SAT 96
[2023-12-26] MEDS: APIXABAN 2.5 MG TABLET PO ×2 (09:17→20:18)
[2023-12-26] MEDS: polyethylene glycoL 3350 17 GM POWD.PACK PO (09:17)
[2023-12-26] MEDS: SIMVASTATIN 10 MG TABLET 20 MG PO (09:17)
[2023-12-26] MEDS: oxyBUTYnin CHLORIDE 2.5 MG TAB PO ×2 (09:17→17:57)
[2023-12-26] MEDS: CHOLECALCIFEROL 5,000 UNITS TABLET 2500 UNITS PO (09:17)
[2023-12-26] MEDS: CYANOCOBALAMIN 500 MCG TABLET 2500 MCG PO (09:17)
[2023-12-26 09:18] VITALS: PULSE 96
[2023-12-26] MEDS: MECLIZINE HCL 25 MG TABLET PO ×2 (09:18→20:18)
[2023-12-26] MEDS: POTASSIUM CHLORIDE 20 MEQ PACKET (FOR LIQUID) PO (09:18)
[2023-12-26] MEDS: METOPROLOL SUCCINATE EXT REL 50 MG TABCR 100 MG PO (09:18)
[2023-12-26 16:00] VITALS: BP 137/87; PULSE 117; RESP 20; TEMP 36.6; O2SAT 96
[2023-12-26 20:00] VITALS: PULSE 117; RESP 20; O2SAT 96
[2023-12-26] MEDS: MELATONIN 5 MG TABLET PO (20:18)
[2023-12-26] MEDS: ACETAMINOPHEN 325 MG TABLET 650 MG PO (20:18)
[2023-12-26] MEDS: ONDANSETRON HCL ODT 4 MG TABLET PO (21:33)
[2023-12-27] VITALS: BP 126/78; PULSE 48; RESP 17; TEMP 36.2; O2SAT 94
[2023-12-27] MEDS: HYDROcodone/acetaminophen (*CRX) 5-325 MG TABLET 1 TAB PO ×5 (01:52→20:33)
[2023-12-27] MEDS: LEVOTHYROXINE SODIUM 75 MCG TABLET PO (05:36)
[2023-12-27 08:00] VITALS: BP 126/70; PULSE 82; RESP 18; TEMP 36.1; O2SAT 94
[2023-12-27] MEDS: CYANOCOBALAMIN 500 MCG TABLET 2500 MCG PO (09:00)
[2023-12-27] MEDS: SIMVASTATIN 10 MG TABLET 20 MG PO (09:00)
[2023-12-27 09:01] VITALS: PULSE 88
[2023-12-27] MEDS: MECLIZINE HCL 25 MG TABLET PO ×2 (09:01→20:33)
[2023-12-27] MEDS: METOPROLOL SUCCINATE EXT REL 50 MG TABCR 100 MG PO (09:01)
[2023-12-27] MEDS: CHOLECALCIFEROL 5,000 UNITS TABLET 2500 UNITS PO (09:01)
[2023-12-27] MEDS: oxyBUTYnin CHLORIDE 5 MG TABLET PO ×2 (09:02→16:21)
[2023-12-27] MEDS: APIXABAN 2.5 MG TABLET PO ×2 (09:02→20:33)
[2023-12-27] MEDS: polyethylene glycoL 3350 17 GM POWD.PACK PO (09:02)
[2023-12-27] MEDS: POTASSIUM CHLORIDE 20 MEQ PACKET (FOR LIQUID) PO (09:02)
[2023-12-27 16:00] VITALS: BP 134/72; PULSE 80; RESP 20; TEMP 36.6; O2SAT 94
[2023-12-27 20:00] VITALS: PULSE 80; RESP 20; O2SAT 94
[2023-12-27] MEDS: traZODone HCL 25 MG TABLET PO (20:33)
[2023-12-27] MEDS: ONDANSETRON HCL ODT 4 MG TABLET PO (20:33)
[2023-12-27] MEDS: ACETAMINOPHEN 325 MG TABLET 650 MG PO (21:19)
[2023-12-28] VITALS: BP 135/83; PULSE 92; RESP 16; TEMP 36.3; O2SAT 95
[2023-12-28] MEDS: HYDROcodone/acetaminophen (*CRX) 5-325 MG TABLET 1 TAB PO ×4 (01:06→20:20)
[2023-12-28] MEDS: LEVOTHYROXINE SODIUM 75 MCG TABLET PO (05:54)
[2023-12-28 05:56] LABS: Basophils Absolute Auto 0.03 K/mm3 (0.00-0.10); Basophils Percent Auto 0.3 % (0.0-1.0); Eosinophils Percent Auto 1.2 % (1.0-6.0); Hematocrit 33.4 % (35.0-42.0); Hemoglobin 10.7 g/dL (11.7-13.8); Immature Granulocyte Percent A 1.2 % (0.0-0.0); Lymphocytes Absolute Auto 1.43 K/mm3 (1.10-4.50); Lymphocytes Percent Auto 16.7 % (18.0-42.0); Mean Corpuscular Hemoglobin 31.4 pg (27.0-31.0); Mean Corpuscular Volume 97.9 fL (78.0-102.0); Mean Platelet Volume 11.1 fl (9.2-11.8); Monocytes Absolute Auto 0.87 K/mm3 (0.10-0.90); Monocytes Percent Auto 10.1 % (2.0-11.0); Neutrophils Absolute Auto 6.05 K/mm3 (1.70-7.20); Neutrophils Percent Auto 70.5 % (50.0-70.0); Platelet Count Result 215 K/mm3 (150-420); Red Blood Count 3.41 M/mm3 (4.20-5.40); Red Cell Distribution Width 16.9 % (11.6-14.4); White Blood Count 8.6 K/mm3 (4.8-10.8)
[2023-12-28 06:48] VITALS: TEMP 36.3
[2023-12-28 08:00] VITALS: BP 135/75; PULSE 86; RESP 14; TEMP 36.4; O2SAT 97
--- NOTE | 2023-12-28 08:23 | PM.IMPN ---
Progress Note: A&P Assessment and Plan (1) Intertrochanteric fracture of left hip: Code(s): S72.142A - Displaced intertrochanteric fracture of left femur, initial encounter for closed fracture Status: Acute Assessment and Plan: 12/28/23: continue pain control continue PT and OT (2) COVID: Code(s): U07.1 - COVID-19 Status: Acute Assessment and Plan: 12/28/23: continue with supportive care (3) Anemia: Code(s): D64.9 - Anemia, unspecified Status: Acute Assessment and Plan: 12/28/23: hemoglobin today 10.7 continue to trend (4) Hyperlipidemia: Code(s): E78.5 - Hyperlipidemia, unspecified Status: Chronic Assessment and Plan: 12/28/23: continue atorvastatin (5) Hypothyroidism: Code(s): E03.9 - Hypothyroidism, unspecified Status: Chronic Assessment and Plan: 12/28/23: continue levothyroxine (6) Hypertension: Code(s): I10 - Essential (primary) hypertension Status: Chronic Assessment and Plan: 12/28/23: blood pressure ranging 135/83 to 156/87 continue metoprolol ER 100 mg q.a.m. (7) Atrial fibrillation: Code(s): I48.91 - Unspecified atrial fibrillation Status: Chronic Assessment and Plan: 12/28/23: rate controlled continue metoprolol and Eliquis Time Spent With Patient Time with patient: 25 - 35 minutes Subjective Date/time seen: 12/28/23 08:23 Interval history: This is an 88-year-old female who presented to [facility] for swing bed program following a left intratrochanteric hip fracture repair from ground level fall at home. Labs reviewed and shown a hemoglobin of 10.7, sodium 134, EGFR 52, total bili 2.1. she does report left hip pain however is well controlled with pain medication. She denies any other new complaints today. Review of Systems Review of Systems: All systems reviewed & are unremarkable except as noted in HPI and below Constitutional: Constitutional: Reports as per HPI and Reports no additional constitutional complaints Eyes: Eyes: Reports as per HPI and Reports no additional eye complaints ENT: Reports system reviewed and no additional complaints, except as documented and Reports as per HPI Cardiovascular: Cardiovascular: Reports as per HPI and Reports no additional cardiovascular complaints Respiratory: Respiratory: Reports as per HPI and Reports no additional respiratory complaints Gastrointestinal: Gastrointestinal: Reports as per HPI and Reports no additional gastrointestinal complaints Genitourinary: Genitourinary: Reports no additional female genitourinary complaints and Reports as per HPI Musculoskeletal: Musculoskeletal: Reports no additional musculoskeletal complaints and Reports as per HPI Integumentary/Breasts: Skin/Breast: Reports system reviewed and no additional complaints, except as docu and Reports as per HPI Neurologic: Reports system reviewed and no additional complaints, except as documented and Reports as per HPI Psychiatric: Psychiatric: Reports no additional psychiatric complaints and Reports as per HPI Exam Narrative: General: In no acute distress, well nourished Head: atraumatic, no encephalopathy Eyes: EOMI, PERRLA, sclera clear ENT: moist mucous membranes, nasal passages clear Neck: supple, no JVD, no adenopathy, trachea midline Cardiac: Normal S1 and S2. No murmur, gallops or friction rubs, peripheral pulses intact. Respiratory: Lungs clear to auscultation, no adventitious lung sounds , currently on room air Gastrointestinal: soft, non-distended, non-tender, normoactive bowel sounds. : voiding without difficulty. Extremities: moves all extremities well, no edema Skin: clean, dry, intact. No wounds or lesions. Neuro: Alert and oriented x4, cranial nerves intact, no neuro deficits. Psych: normal mood, normal affect, interactive Objective Data Vital Signs Vital Signs: Amanda
[2023-12-28] MEDS: SIMVASTATIN 10 MG TABLET 20 MG PO (09:07)
[2023-12-28] MEDS: CHOLECALCIFEROL 5,000 UNITS TABLET 2500 UNITS PO (09:07)
[2023-12-28] MEDS: CYANOCOBALAMIN 500 MCG TABLET 2500 MCG PO (09:07)
[2023-12-28] MEDS: MECLIZINE HCL 25 MG TABLET PO ×2 (09:07→20:20)
[2023-12-28] MEDS: oxyBUTYnin CHLORIDE 5 MG TABLET PO ×2 (09:07→18:05)
[2023-12-28] MEDS: POTASSIUM CHLORIDE 20 MEQ PACKET (FOR LIQUID) PO (09:07)
[2023-12-28 09:08] VITALS: PULSE 80
[2023-12-28] MEDS: METOPROLOL SUCCINATE EXT REL 50 MG TABCR 100 MG PO (09:08)
[2023-12-28] MEDS: APIXABAN 2.5 MG TABLET PO ×2 (09:09→20:20)
[2023-12-28] MEDS: polyethylene glycoL 3350 17 GM POWD.PACK PO (09:10)
[2023-12-28 10:19] LABS: Alanine Aminotransferase 13 U/L (6-35); Albumin Level 3.1 g/dL (3.5-5.1); Alkaline Phosphatase 84 U/L (38-126); Anion Gap 9 mmol/L (4-12); Aspartate Amino Transferase 22 U/L (14-36); Bilirubin,Total 2.1 mg/dL (0.2-1.3); Blood Urea Nitrogen 21 mg/dL (7-17); Calcium 8.9 mg/dL (8.4-10.2); Carbon Dioxide 22 mmol/L (22-30); Chloride 103 mmol/L (98-107); Estimated CRCL calculation 31 ml/min; Estimated Glomerular Filt Rate 52; Glucose 101 mg/dL (65-110); Osmolality Calculated 281 mOsm/kg (285-295); Potassium 4.7 mmol/L (3.4-5.0); Sodium 134 mmol/L (137-145)
[2023-12-28 16:40] VITALS: BP 153/90; PULSE 87; RESP 16; TEMP 36.2; O2SAT 97
[2023-12-28] MEDS: FUROSEMIDE 20 MG TABLET PO (18:05)
--- NOTE | 2023-12-28 19:45 | PC.NURSE ---
Addendum entered by Ashanti Mtz RN 12/28/23 23:21: Patient unable to urinate in toilet at this time. Original Note: Bed alarm sounding, pt attempting to get up unassisted, states she needs to go to bathroom, and that she had wet her pants twice. Ambulated to bathroom with 1 assist, gait belt, and walker, depends and pants wet, assisted with cheri-care and dry clothes/depends. Patient reminded and encouraged to use call light for assistance.
[2023-12-28 20:00] VITALS: PULSE 87; RESP 16; O2SAT 97
[2023-12-28] MEDS: traZODone HCL 25 MG TABLET PO (20:20)
--- NOTE | 2023-12-28 22:15 | PC.NURSE ---
Patient called for assistance to bathroom, states she has wet her pants five times, it just wouldn't stop . When asked why she did not call for assist, states, I didn't want to bother anyone . Patient reminded and encouraged to use call light any time she needs to urinate and that she is not a bother to staff as it is our job to assist her, pt states understanding. Ambulates to bathroom with 1 assist, gait belt and walker, pt has slow gait, with many complaints, ie: hip pain, knees not working, etc. Depends and pants wet and changed, bed linens changed, assisted with cheri-care, pt unable to urinate on toilet at this time. PRN tylenol given for pain. Denies further needs.
[2023-12-28] MEDS: ACETAMINOPHEN 325 MG TABLET 650 MG PO (22:44)
--- NOTE | 2023-12-28 23:54 | PC.NURSE ---
Patient called to use bathroom, noted to be incontinent of urine, ambulated to bathroom, unable to urinate in toilet. Ambulates back to bed, and assisted to comfortable position, when patient states she believes she now has to urinate. Ambulates back to back to bathroom, patient encouraged to drain her bladder. After several minutes, patient calls, remains unable to urinate on toilet. Assisted back to bed. Denies further needs.
[2023-12-29] VITALS: BP 132/81; PULSE 83; RESP 17; TEMP 36.2; O2SAT 97
--- NOTE | 2023-12-29 01:44 | PC.NURSE ---
Pt called to use bathroom, states she already went in her pants, ambulates to bathroom with 1 assist, gait belt and walker, depends changed. Encouraged patient to try to empty bladder on toilet. Remains unable to urinate on toilet.
--- NOTE | 2023-12-29 05:30 | PC.NURSE ---
Awoke patient to try to toilet, states she is already soaked , call light in reach, asked patient why she did not call for help, states, I didn't even know I was going . Assisted patient to bathroom with walker and gait belt, cheri-care provided, clean gown and depends donned. Dressing to left hip changed d/t serous drainage and possible urine. Patient able to urinate in toilet (first time since 7pm). Assisted to recliner, BLE elevated. Denies further needs at this time.
[2023-12-29] MEDS: LEVOTHYROXINE SODIUM 75 MCG TABLET PO (06:16)
[2023-12-29 08:00] VITALS: BP 117/77; PULSE 74; RESP 14; TEMP 36.4; O2SAT 93
[2023-12-29] MEDS: HYDROcodone/acetaminophen (*CRX) 5-325 MG TABLET 1 TAB PO ×3 (09:54→23:26)
[2023-12-29] MEDS: CYANOCOBALAMIN 500 MCG TABLET 2500 MCG PO (09:54)
[2023-12-29] MEDS: POTASSIUM CHLORIDE 20 MEQ PACKET (FOR LIQUID) PO (09:54)
[2023-12-29 09:55] VITALS: PULSE 74
[2023-12-29] MEDS: METOPROLOL SUCCINATE EXT REL 50 MG TABCR 100 MG PO (09:55)
[2023-12-29] MEDS: CHOLECALCIFEROL 5,000 UNITS TABLET 2500 UNITS PO (09:56)
[2023-12-29] MEDS: MECLIZINE HCL 25 MG TABLET PO ×2 (09:56→20:46)
[2023-12-29] MEDS: oxyBUTYnin CHLORIDE 5 MG TABLET PO ×2 (09:56→18:21)
[2023-12-29] MEDS: APIXABAN 2.5 MG TABLET PO ×2 (09:56→20:46)
[2023-12-29] MEDS: SIMVASTATIN 10 MG TABLET 20 MG PO (09:57)
[2023-12-29] MEDS: ONDANSETRON HCL ODT 4 MG TABLET PO (10:43)
[2023-12-29 16:25] VITALS: BP 113/58; PULSE 63; RESP 18; TEMP 36.1; O2SAT 96
[2023-12-29] MEDS: traZODone HCL 25 MG TABLET PO (20:46)
[2023-12-29 23:44] VITALS: BP 134/84; PULSE 86; RESP 18; TEMP 36.3; O2SAT 97
--- NOTE | 2023-12-30 06:02 | PC.NURSE ---
Incontinent of urine and then ambulates to bathroom with walker and standby assist.
[2023-12-30] MEDS: LEVOTHYROXINE SODIUM 75 MCG TABLET PO (06:16)
[2023-12-30 08:00] VITALS: BP 107/63; PULSE 66; RESP 18; TEMP 36.3; O2SAT 96
[2023-12-30] MEDS: HYDROcodone/acetaminophen (*CRX) 5-325 MG TABLET 1 TAB PO ×3 (08:44→17:06)
[2023-12-30] MEDS: polyethylene glycoL 3350 17 GM POWD.PACK PO (08:44)
[2023-12-30] MEDS: MECLIZINE HCL 25 MG TABLET PO ×2 (08:44→20:52)
[2023-12-30] MEDS: POTASSIUM CHLORIDE 20 MEQ PACKET (FOR LIQUID) PO (08:44)
[2023-12-30] MEDS: SIMVASTATIN 10 MG TABLET 20 MG PO (08:44)
[2023-12-30] MEDS: APIXABAN 2.5 MG TABLET PO ×2 (08:44→20:52)
[2023-12-30] MEDS: CHOLECALCIFEROL 5,000 UNITS TABLET 2500 UNITS PO (08:44)
[2023-12-30] MEDS: CYANOCOBALAMIN 500 MCG TABLET 2500 MCG PO (08:44)
[2023-12-30] MEDS: oxyBUTYnin CHLORIDE 5 MG TABLET PO ×2 (08:44→17:06)
[2023-12-30 08:45] VITALS: PULSE 65
[2023-12-30] MEDS: METOPROLOL SUCCINATE EXT REL 50 MG TABCR 100 MG PO (08:45)
[2023-12-30 09:31] VITALS: PULSE 65
[2023-12-30] MEDS: METOPROLOL SUCCINATE EXT REL 25 MG TABCR PO (09:31)
[2023-12-30 16:00] VITALS: BP 120/56; PULSE 60; RESP 14; TEMP 36.1; O2SAT 96
[2023-12-30 20:00] VITALS: PULSE 60; RESP 14; O2SAT 96
[2023-12-30] MEDS: traZODone HCL 25 MG TABLET PO (20:52)
[2023-12-30] MEDS: ACETAMINOPHEN 325 MG TABLET 650 MG PO (20:52)
[2023-12-31] VITALS: BP 125/65; PULSE 68; RESP 17; TEMP 35.9; O2SAT 97
[2023-12-31] MEDS: LEVOTHYROXINE SODIUM 75 MCG TABLET PO (05:46)
[2023-12-31 08:00] VITALS: BP 132/82; PULSE 82; RESP 18; TEMP 36.6; O2SAT 94
[2023-12-31] MEDS: HYDROcodone/acetaminophen (*CRX) 5-325 MG TABLET 1 TAB PO ×2 (08:16→18:11)
[2023-12-31] MEDS: CHOLECALCIFEROL 5,000 UNITS TABLET 2500 UNITS PO (08:41)
[2023-12-31] MEDS: oxyBUTYnin CHLORIDE 5 MG TABLET PO ×2 (08:42→17:17)
[2023-12-31] MEDS: CYANOCOBALAMIN 500 MCG TABLET 2500 MCG PO (08:42)
[2023-12-31] MEDS: SIMVASTATIN 10 MG TABLET 20 MG PO (08:42)
[2023-12-31 08:43] VITALS: PULSE 87
[2023-12-31] MEDS: METOPROLOL SUCCINATE EXT REL 25 MG TABCR 125 MG PO (08:43)
[2023-12-31] MEDS: APIXABAN 2.5 MG TABLET PO ×2 (08:43→20:38)
[2023-12-31] MEDS: POTASSIUM CHLORIDE 20 MEQ PACKET (FOR LIQUID) PO (08:44)
[2023-12-31] MEDS: MECLIZINE HCL 25 MG TABLET PO ×2 (08:44→20:38)
--- NOTE | 2023-12-31 11:54 | PC.NURSE ---
[id number] out of building for doctor appointment
[2023-12-31 16:00] VITALS: BP 128/74; PULSE 84; RESP 18; TEMP 36.1; O2SAT 95
[2023-12-31] MEDS: traZODone HCL 25 MG TABLET PO (20:37)
[2023-12-31] MEDS: ACETAMINOPHEN 325 MG TABLET 650 MG PO (20:38)
[2024-01-01] VITALS: BP 114/76; PULSE 59; RESP 16; TEMP 36.6; O2SAT 97
[2024-01-01] MEDS: LEVOTHYROXINE SODIUM 75 MCG TABLET PO (06:36)
[2024-01-01 08:00] VITALS: BP 118/58; PULSE 66; RESP 14; TEMP 36.6; O2SAT 97
[2024-01-01] MEDS: POTASSIUM CHLORIDE 20 MEQ PACKET (FOR LIQUID) PO (09:22)
[2024-01-01] MEDS: HYDROcodone/acetaminophen (*CRX) 5-325 MG TABLET 1 TAB PO ×2 (09:23→20:52)
[2024-01-01] MEDS: SIMVASTATIN 10 MG TABLET 20 MG PO (09:23)
[2024-01-01] MEDS: CYANOCOBALAMIN 500 MCG TABLET 2500 MCG PO (09:23)
[2024-01-01 09:25] VITALS: PULSE 62
[2024-01-01] MEDS: METOPROLOL SUCCINATE EXT REL 25 MG TABCR 125 MG PO (09:25)
[2024-01-01] MEDS: APIXABAN 2.5 MG TABLET PO ×2 (09:25→20:51)
[2024-01-01] MEDS: MECLIZINE HCL 25 MG TABLET PO ×2 (09:25→20:51)
[2024-01-01] MEDS: CHOLECALCIFEROL 5,000 UNITS TABLET 2500 UNITS PO (09:25)
[2024-01-01] MEDS: oxyBUTYnin CHLORIDE 5 MG TABLET PO ×2 (09:26→16:53)
--- NOTE | 2024-01-01 10:06 | PM.EVENT ---
Event Note Event Note Event Note: Patient doing well with PT/OT hopefully discharge to home in a few more days. Patient with no complaints at this time pain well controlled
[2024-01-01 12:17] LABS: Toxigenic C. Diff NEGATIVE (NEGATIVE)
[2024-01-01] MEDS: LOPERAMIDE HCL 2 MG CAPSULE PO (15:50)
[2024-01-01 16:00] VITALS: BP 140/88; PULSE 98; RESP 18; TEMP 36.1; O2SAT 92
[2024-01-01] MEDS: traZODone HCL 25 MG TABLET PO (20:51)
[2024-01-01] MEDS: ONDANSETRON HCL ODT 4 MG TABLET PO (20:52)
[2024-01-02] VITALS: BP 138/62; PULSE 83; RESP 16; TEMP 36.6; O2SAT 98
[2024-01-02] MEDS: LEVOTHYROXINE SODIUM 75 MCG TABLET PO (06:14)
[2024-01-02 08:00] VITALS: BP 150/77; PULSE 78; RESP 12; TEMP 36.4; O2SAT 96
[2024-01-02] MEDS: CYANOCOBALAMIN 500 MCG TABLET 2500 MCG PO (09:20)
[2024-01-02] MEDS: SIMVASTATIN 10 MG TABLET 20 MG PO (09:20)
[2024-01-02 09:21] VITALS: PULSE 102
[2024-01-02] MEDS: METOPROLOL SUCCINATE EXT REL 25 MG TABCR 125 MG PO (09:21)
[2024-01-02] MEDS: oxyBUTYnin CHLORIDE 5 MG TABLET PO ×2 (09:21→17:32)
[2024-01-02] MEDS: MECLIZINE HCL 25 MG TABLET PO ×2 (09:22→20:33)
[2024-01-02] MEDS: CHOLECALCIFEROL 5,000 UNITS TABLET 2500 UNITS PO (09:22)
[2024-01-02] MEDS: POTASSIUM CHLORIDE 20 MEQ PACKET (FOR LIQUID) PO (09:22)
[2024-01-02] MEDS: APIXABAN 2.5 MG TABLET PO ×2 (09:22→20:33)
[2024-01-02] MEDS: HYDROcodone/acetaminophen (*CRX) 5-325 MG TABLET 1 TAB PO ×2 (09:23→17:32)
[2024-01-02 16:35] VITALS: BP 124/73; PULSE 82; RESP 16; TEMP 36.6; O2SAT 98
[2024-01-02] MEDS: ACETAMINOPHEN 325 MG TABLET 650 MG PO (20:32)
[2024-01-02] MEDS: traZODone HCL 25 MG TABLET PO (20:33)
[2024-01-03] VITALS: BP 132/69; PULSE 83; RESP 16; TEMP 36.7; O2SAT 98
[2024-01-03] MEDS: LEVOTHYROXINE SODIUM 75 MCG TABLET PO (05:48)
[2024-01-03] MEDS: HYDROcodone/acetaminophen (*CRX) 5-325 MG TABLET 1 TAB PO ×3 (05:48→20:51)
[2024-01-03 08:00] VITALS: BP 114/70; PULSE 88; RESP 14; TEMP 36.7; O2SAT 98
[2024-01-03] MEDS: POTASSIUM CHLORIDE 20 MEQ PACKET (FOR LIQUID) PO (09:07)
[2024-01-03] MEDS: CHOLECALCIFEROL 5,000 UNITS TABLET 2500 UNITS PO (09:08)
[2024-01-03] MEDS: APIXABAN 2.5 MG TABLET PO ×2 (09:08→20:52)
[2024-01-03] MEDS: LOPERAMIDE HCL 2 MG CAPSULE PO (09:08)
[2024-01-03] MEDS: CYANOCOBALAMIN 500 MCG TABLET 2500 MCG PO (09:08)
[2024-01-03] MEDS: SIMVASTATIN 10 MG TABLET 20 MG PO (09:08)
[2024-01-03] MEDS: MECLIZINE HCL 25 MG TABLET PO ×2 (09:08→20:52)
[2024-01-03 09:09] VITALS: PULSE 88
[2024-01-03] MEDS: oxyBUTYnin CHLORIDE 5 MG TABLET PO ×2 (09:09→16:50)
[2024-01-03] MEDS: METOPROLOL SUCCINATE EXT REL 25 MG TABCR 125 MG PO (09:09)
[2024-01-03 16:40] VITALS: BP 121/59; PULSE 74; RESP 16; TEMP 36.6; O2SAT 98
[2024-01-03] MEDS: traZODone HCL 25 MG TABLET PO (20:51)
[2024-01-04] VITALS: BP 133/88; PULSE 76; RESP 16; TEMP 36.6; O2SAT 97
[2024-01-04] MEDS: LEVOTHYROXINE SODIUM 75 MCG TABLET PO (05:47)
[2024-01-04 08:00] VITALS: BP 148/64; PULSE 99; RESP 18; TEMP 36.3; O2SAT 95
[2024-01-04 08:31] VITALS: PULSE 99
[2024-01-04] MEDS: polyethylene glycoL 3350 17 GM POWD.PACK PO (08:31)
[2024-01-04] MEDS: POTASSIUM CHLORIDE 20 MEQ PACKET (FOR LIQUID) PO (08:31)
[2024-01-04] MEDS: METOPROLOL SUCCINATE EXT REL 25 MG TABCR 125 MG PO (08:31)
[2024-01-04] MEDS: CYANOCOBALAMIN 500 MCG TABLET 2500 MCG PO (08:31)
[2024-01-04] MEDS: oxyBUTYnin CHLORIDE 5 MG TABLET PO ×2 (08:31→17:42)
[2024-01-04] MEDS: MECLIZINE HCL 25 MG TABLET PO ×2 (08:32→20:46)
[2024-01-04] MEDS: CHOLECALCIFEROL 5,000 UNITS TABLET 2500 UNITS PO (08:32)
[2024-01-04] MEDS: APIXABAN 2.5 MG TABLET PO ×2 (08:34→20:46)
[2024-01-04] MEDS: SIMVASTATIN 10 MG TABLET 20 MG PO (08:36)
[2024-01-04] MEDS: ACETAMINOPHEN 325 MG TABLET 650 MG PO ×2 (12:45→17:40)
[2024-01-04 15:28] VITALS: BP 124/72; PULSE 84; RESP 18; TEMP 36.1; O2SAT 94
[2024-01-04] MEDS: HYDROcodone/acetaminophen (*CRX) 5-325 MG TABLET 1 TAB PO (20:45)
[2024-01-04] MEDS: traZODone HCL 25 MG TABLET PO (20:46)
[2024-01-05] VITALS: BP 150/87; PULSE 81; RESP 16; TEMP 36.4; O2SAT 100
[2024-01-05] MEDS: HYDROcodone/acetaminophen (*CRX) 5-325 MG TABLET 1 TAB PO ×2 (05:40→10:05)
[2024-01-05] MEDS: LEVOTHYROXINE SODIUM 75 MCG TABLET PO (05:40)
[2024-01-05 07:45] VITALS: BP 148/68; PULSE 73; RESP 18; TEMP 36.4; O2SAT 99
[2024-01-05 08:35] VITALS: PULSE 73; RESP 18; O2SAT 99
[2024-01-05 10:03] VITALS: PULSE 73
[2024-01-05] MEDS: METOPROLOL SUCCINATE EXT REL 25 MG TABCR 125 MG PO (10:03)
[2024-01-05] MEDS: POTASSIUM CHLORIDE 20 MEQ PACKET (FOR LIQUID) PO (10:03)
[2024-01-05] MEDS: oxyBUTYnin CHLORIDE 5 MG TABLET PO (10:04)
[2024-01-05] MEDS: CYANOCOBALAMIN 500 MCG TABLET 2500 MCG PO (10:04)
[2024-01-05] MEDS: APIXABAN 2.5 MG TABLET PO (10:04)
[2024-01-05] MEDS: SIMVASTATIN 10 MG TABLET 20 MG PO (10:05)
[2024-01-05] MEDS: CHOLECALCIFEROL 5,000 UNITS TABLET 2500 UNITS PO (10:05)
[2024-01-05] MEDS: MECLIZINE HCL 25 MG TABLET PO (10:06)
--- NOTE | 2024-01-05 11:25 | PM.DS ---
DS: Admitting Diagnosis Discharge Date 01/05/2024 Admitting Diagnosis Left Intertrochanteric Hip fracture DS: Discharge Diagnosis Discharge Diagnosis (1) Intertrochanteric fracture of left hip: Code(s): S72.142A - Displaced intertrochanteric fracture of left femur, initial encounter for closed fracture Status: Acute Assessment and Plan: 12/28/23: continue pain control continue PT and OT (2) COVID: Code(s): U07.1 - COVID-19 Status: Acute Assessment and Plan: 12/28/23: continue with supportive care (3) Anemia: Code(s): D64.9 - Anemia, unspecified Status: Acute Assessment and Plan: 12/28/23: hemoglobin today 10.7 continue to trend (4) Hyperlipidemia: Code(s): E78.5 - Hyperlipidemia, unspecified Status: Chronic Assessment and Plan: 12/28/23: continue atorvastatin (5) Hypothyroidism: Code(s): E03.9 - Hypothyroidism, unspecified Status: Chronic Assessment and Plan: 12/28/23: continue levothyroxine (6) Hypertension: Code(s): I10 - Essential (primary) hypertension Status: Chronic Assessment and Plan: 12/28/23: blood pressure ranging 135/83 to 156/87 continue metoprolol ER 100 mg q.a.m. (7) Atrial fibrillation: Code(s): I48.91 - Unspecified atrial fibrillation Status: Chronic Assessment and Plan: 12/28/23: rate controlled continue metoprolol and Eliquis Plan Disposition: Patient discharged to home with home health and family DS: Summary Hospital Course Reason for hospitalization: Left Intertrochanteric Hip fracture Hospital Course: Admission: Patient is a 88-year-old female who was admitted to [facility] for continued rehabilitation following a left intertrochanteric hip fracture repair following a fall at home. patient does have a past medical history of atrial fibrillation, cardiomyopathy, CHF, HLD, HTN, and hypothyroidism. initially patient was set to go to [facility] however patient COVID came back negative and she [facility]. Patient was asymptomatic with COVID oxygen saturation at 100% on room air denied any shortness of breath, chest pain, fever, chills with a normal WBC. Patient did receive 1 dose remdesivir prior to arrival we will continue with supportive care. Prior to discharge patient's HGB dropped to 7.0 from 10.1 however is likely expected following surgical repair of hip fracture patient was given 1 unit PRBCs and follow-up HGB 9.7. patient denied any chest pain, shortness of breath, dizziness, abdominal pain, nausea, vomiting, fever or chills. 01/05/2024: DISCHARGED patient assessed day of discharge in no acute distress reported she is close to her baseline will continue with PT OT at home. Patient's urinary symptoms had improved as well denied any chest pain, shortness a breath, nausea, vomiting, dizziness or abdominal pain. Reviewed overt discharge medications will have follow-up with Orthopedics in 2-3 weeks. Patient was discharged home with home health daughter will be staying with her during her recovery. Status at Discharge Functional status at discharge: uses cane/walker Overall status at discharge: patient is progressing back to baseline Time Spent with Patient Time attestation: Total time spent providing and/or coordinating discharge services: Time spent: Greater than 30 minutes Exam Narrative: General: In no acute distress, well nourished Head: atraumatic, no encephalopathy Eyes: EOMI, PERRLA, sclera clear ENT: moist mucous membranes, nasal passages clear Neck: supple, no JVD, no adenopathy, trachea midline Cardiac: Normal S1 and S2. No murmur, gallops or friction rubs, peripheral pulses intact. Respiratory: Lungs clear to auscultation, no adventitious lung sounds , currently on room air Gastrointestinal: soft, non-distended, non-tender, normoactive bowel sounds. : voiding without di
--- NOTE | 2024-01-05 12:00 | PC.NURSE ---
Patient discharing home with home health today. All discharge instructions and education reviewed with patient and daughter. Both parties state understanding. All belongings gathered together and sent home with patient. Patient denies any questions at discharge. Patient had no IV at time of discharge. Accompanied to front door via wheelchair by this nurse, left via private vehicle with daughter.
--- NOTE | 2024-01-06 11:13 | PC.NURSE ---
Doing well at home, called PMD office and got lasix on hold at this time, having incontinent spells. To see PMD next saturday, did not hear from home health yet, confirmed phone number for [facility], appreciated the care she received, no questions regarding dc instructions
== END 2024-01-05 12:00 | disposition home health service (06) | DRG 559 ==
PROVIDERS: Nurse Practitioner Acute Care; Admitting Provider Internal Medicine; PCP Internal Medicine; Visit Provider Nurse Practitioner Family
DX: S72.142D Displaced intertrochanteric fracture of left femur, subsequent encounter for closed fracture with routine healing (principal); U07.1 COVID-19; D62 Acute posthemorrhagic anemia; I42.9 Cardiomyopathy, unspecified; I48.20 Chronic atrial fibrillation, unspecified; I11.0 Hypertensive heart disease with heart failure; I50.9 Heart failure, unspecified; E78.5 Hyperlipidemia, unspecified; E03.9 Hypothyroidism, unspecified; W19.XXXD Unspecified fall, subsequent encounter; Z79.01 Long term (current) use of anticoagulants
CPT/HCPCS: 36415; 80053; 81003; 85014; 85018; 85025; 87493; 97110; 97161; 97166; 97530; 97535; A9270

== ENCOUNTER 2024-06-25 10:17 | Emergency (ER) | payer MEDICARE, SELFPAY ==
[2024-06-25] VITALS (13 sets, daily range): BP systolic 140–165; BP diastolic 51–96; PULSE 66–89; RESP 13–31; TEMP 36.5; O2SAT 97–100
--- NOTE | ~2024-06-25 | XR_ITS ---
HISTORY: R SHOULDER PAIN, HEMATOMA COMPARISON: None. Reference is made to plain film evaluation of the chest dated 12/20/2023 TECHNIQUE: 3 views of the right shoulder were performed. FINDINGS: Diffuse bony demineralization is identified along with moderate degenerative disease. The glenohumeral and acromioclavicular joint spaces are narrowed but maintained The visualized portion of the adjacent right lung is clear. The humeral head is well seated within the glenoid fossa. Prior fracture deformity is identified within the right lateral fifth rib. Cortical irregularity is now demonstrated within the right lateral fourth rib for which an additional fracture (age indeterminate, but not present on the 12/20/2023 plain film evaluation of the chest) is suspected. IMPRESSION: Findings within the right lateral chest wall for which cross-sectional imaging (noncontr ast enhanced CT examination of the chest) is recommended for further evaluation, as a right lateral r ib fracture is suspected. Reviewed, dictated and finalized at location A. T SERVICE MANAGER IMPRESSION: Findings within the right lateral chest wall for which cross-secti onal imaging (noncontrast enhanced CT examination of the chest) is recommended for further evaluation, as a right lateral rib fracture is suspected.
--- NOTE | ~2024-06-25 | CT_ITS ---
EXAMINATION: CT diagnostic chest wo con DATE: 06/25/2024 15:06 INDICATION: trauma TECHNIQUE: Computed tomography (CT) of the chest was performed without intravenous contrast. Addition al 3D reconstructions utilizing coronal maximum intensity projection (MIP) were performed. Automated exposure control and iterative reconstruction technique were employed. The dose-length product was 13 9.73 mGy-cm. COMPARISON: None FINDINGS: Mild emphysema. There are couple small calcified nodules in the left lower lobe and calcified superfi cial lymph node along the left major fissure consistent with old granulomatous disease. Mild peripher al irregular septal line thickening without honeycombing which could be related to atelectasis or chr onic interstitial lung disease. No pneumonia, pulmonary edema, pleural effusion or pneumothorax. Mild cardiomegaly with biatrial enlargement. Atherosclerotic coronary artery calcifications. No pericardi al effusion. Fusiform ascending thoracic aortic aneurysm measuring up to 4.6 x 4.3 cm. Borderline med iastinal lymphadenopathy which most likely reactive. Mild intra and extra hepatic biliary ductal dila tion likely related to prior cholecystectomy with surgical clips at the gallbladder fossa. Chronic L1 compression fracture which is seen on two-view chest radiograph dated 07/31/2023. There is a more rec ent-appearing T4 burst fracture with 40% central vertebral body height loss and with 2-3 mm retropuls ion resulting in minimal central canal stenosis at this level. This is not currently identified on e prior chest radiograph. In addition there is an additional mildly displaced posterolateral right fi fth rib fracture with an adjacent old healed fractures of the posterolateral right sixth rib which ca n be seen on the prior radiograph. IMPRESSION: 1. Mildly displaced acute posterolateral right fifth rib fracture and recent-appearing, likely acute T4 burst fracture with 40% central vertebral body height loss and 2-3 mm retropulsion. 2. No acute cardiopulmonary disease. 3. Mild emphysema with mild reticular pattern of atelectasis versus chronic interstitial lung disease at the periphery of both lungs. 4. Cardiomegaly with biatrial enlargement. 5. Ascending thoracic aortic aneurysm measuring up to 4.6 cm. Reviewed, dictated and finalized at location L. [facility] IMPRESSION: 1. Mildly displaced acute posterolateral right fifth rib fracture and recent-ap pearing, likely acute T4 burst fracture with 40% central vertebral body height loss and 2-3 mm retropulsion. 2. No acute cardiopulmonary disease. 3. Mild emphysema with mild reticular pattern of atelectasis versus chronic int erstitial lung disease at the periphery of both lungs. 4. Cardiomegaly with biatrial enlargement. 5. Ascending thoracic aortic aneurysm measuring up to 4.6 cm.
--- OUTSIDE RECORDS SUMMARY | 2024-06-25 11:42 | XMS_ITS | Clinical Summary ---
Author Organization [facility] [address] Address [address] [place] [address] Care Team Providers Care Director Of Online Education Name Role Phone Adarsh Tan MD Primary Care Provider Allergies Active Allergy Reactions Criticality Noted Date Comments Guaifenesin Other (See comments) Low 11/21/2020 Oseltamivir Rash Medium 11/21/2020 Medications Eliquis 2.5 mg tablet Take 1 tablet (2.5 mg total) by mouth every 12 (twelve) hours 1 Active meclizine (ANTIVERT) 25 mg tablet 2 (two) times a day Active levothyroxine (SYNTHROID) 75 mcg tablet Take 1 tablet (75 mcg total) by mouth maid cleaning cooking before breakfast Active metoprolol XL (TOPROL-XL) 100 mg 24 hr tablet Take 1 tablet (100 mg total) by mouth daily 1 Active traZODone (DESYREL) 50 mg tablet nightly Active simvastatin (ZOCOR) 20 mg tablet Take 1 tablet (20 mg total) by mouth daily 1 Active cyanocobalamin (Vitamin B-12) 1,000 mcg tablet 8 Active cholecalciferol (VITAMIN D-3) 25 mcg (1,000 unit) tablet Vitamin D3 25 mcg (1,000 unit) tablet Take 1 tablet every day by oral route. 8 Active ofloxacin (OCUFLOX) 0.3 % ophthalmic solution INSTILL 1 DROP INTO AFFECTED EYE THREE TIMES A DAY TO BEGIN USE 2 DAYS BEFORE SURGERY 1 Active prednisoLONE acetate (PRED FORTE) 1 % ophthalmic suspension 1 Active ketorolac (ACULAR) 0.5 % ophthalmic solution INSTILL 1 DROP INTO AFFECTED EYE FOUR TIMES A DAY BEGIN USE 2 DAYS BEFORE SURGERY 1 Active cane deviceIndicatio ns:Dizziness 1 Units continuously as needed (for balance and ambulation) Quad cane to assist with balance and ambulation 1 each 1 Active furosemide (LASIX) 20 mg tablet Take 1 tablet (20 mg total) by mouth continuously as needed 3 Active donepeziL (ARICEPT) 5 mg tablet Take 1 tablet (5 mg total) by mouth daily 4 Active OXYBUTYNIN CHLORIDE ORAL Take 1 tablet by mouth daily 5mg bid Active Active Problems Problem Noted Date Diagnosed Date Permanent atrial fibrillation 04/11/2021 Encounters Date Type Department Care Team Description 05/28/2024 11:30 AM PHARMACIST TECHNICIAN Office Visit [facility] Cardiology [address] [address] [address] [place] [id number] Homar Greenwood MD Permanent atrial fibrillation (HCC) (Primary Dx) from Last 3 Months Surgical History Surgery Date Site/Laterality Comments GALLBLADDER SURGERY 1970's HYSTERECTOMY 04/22/1971 - 04/21/1972 HIP FRACTURE SURGERY Right Medical History Medical History Date Comments Hypertension Thyroid disease Family History Medical History Relation Name Comments Tuberculosis Father Relation Name Status Comments Father Mother (Age 61) Cause of d eath: Blood pressure Social History Tobacco Use Types Packs/Day Years Used Date Smoking Tobacco: Never Smokeless Tobacco: Never Tobacco Cessation:Counseling Given: Not Answered Comments Unknown Sex and Gender Information Value Date Recorded Sex Assigned at Not on file Legal Sex Female 1:17 PM CDT Gender Identity Not on file Sexual Orientation Not on file Obstetrics History Last Filed Vital Signs Vital Sign Reading Time Taken Comments Blood Pressure 130/70 05/28/2024 11:32 AM PHARMACIST TECHNICIAN Pulse 72 05/28/2024 11:32 AM PHARMACIST TECHNICIAN Temperature - - Respiratory Rate - - Oxygen Saturation 96% 05/28/2024 11:32 AM PHARMACIST TECHNICIAN Inhaled Oxygen Concentration - - Weight 52.7 kg (116 lb 1.6 oz) 05/28/2024 11:32 AM PHARMACIST TECHNICIAN Height 165.1 cm (5' 5 ) 05/28/2024 11:32 AM PHARMACIST TECHNICIAN Body Mass Index 19.32 05/28/2024 11:32 AM PHARMACIST TECHNICIAN Plan of Treatment Health Maintenance Due Date Last Done Comments Depression Screening 1935 Fall Risk Assessment 1935 DTaP/Tdap/Td Vaccine (1 - Tdap) 1946 Hepatitis B Screening 1953 Zoster Vaccine (1 of 2) 1985 Well Visit 65+ 2000 Covid-19 Vaccine (3 - 2023-2 5 season) 2023 07/22/2020, 07/01/2020 Influenza Vaccine (#1) 2023 , 02/01/2021, 02/01/2021, Additional history exists Pneumococcal vaccine 65+ Completed 11/19/2018, 12/2014 Insurance [employer] Care Teams Director Of Online Education Relationship Specialty Start Date End Date Adarsh Tan MD [address] [facility] [address] [place] [address] PCP - General Internal Medicine 10/12/20
--- OUTSIDE RECORDS SUMMARY | 2024-06-25 11:42 | XMS_ITS | Referral Summary ---
Author Organization [facility] [address] [facility] [address] Address [address] [place] [address] Care Team Providers Care Spiral Winder Name Role Phone Adarsh Tan MD Primary Care Provider Encounters Date Type Department Care Team Description 05/28/2024 11:30 AM SR. MANAGER Office Visit [facility] Cardiology [address] [facility] [address] [place] [address] Homar Greenwood MD Permanent atrial fibrillation (HCC) (Primary Dx) from Last 3 Months Allergies Active Allergy Reactions Criticality Noted Date Comments Guaifenesin Other (See comments) Low 11/21/2020 Oseltamivir Rash Medium 11/21/2020 Medications Eliquis 2.5 mg tablet Take 1 tablet (2.5 mg total) by mouth every 12 (twelve) hours 1 Active meclizine (ANTIVERT) 25 mg tablet 2 (two) times a day Active levothyroxine (SYNTHROID) 75 mcg tablet Take 1 tablet (75 mcg total) by mouth swimming professor before breakfast Active metoprolol XL (TOPROL-XL) 100 [...] Date Diagnosed Date Permanent atrial fibrillation 04/11/2021 Social History Tobacco Use Types Packs/Day Years Used Date Smoking Tobacco: Never Smokeless Tobacco: Never Tobacco Cessation:Counseling Given: Not Answered Comments Unknown Sex and Gender Information Value Date Recorded Sex Assigned at Not on file Legal Sex Female 1:17 PM CDT Gender Identity Not on file Sexual Orientation Not on file Last Filed Vital Signs Vital Sign Reading Time Taken Comments Blood Pressure 130/70 05/28/2024 11:32 AM SR. MANAGER Pulse 72 05/28/2024 11:32 AM SR. MANAGER Temperature - - Respiratory Rate - - Oxygen Saturation 96% 05/28/2024 11:32 AM SR. MANAGER Inhaled Oxygen Concentration - - Weight 52.7 kg (116 lb 1.6 oz) 05/28/2024 11:32 AM SR. MANAGER Height 165.1 cm (5' 5 ) 05/28/2024 11:32 AM SR. MANAGER Body Mass Index 19.32 05/28/2024 11:32 AM SR. MANAGER Plan of Treatment Not on file Insurance MEDICARE [facility] MED[facility] Address: [address] [address] MEDICARE [employer] Address: [facility] [address] [place] [address] Care Teams Spiral Winder Relationship Specialty Start Date End Date Adarsh Tan MD [address] [place] [address] PCP - General Internal Medicine 10/12/20
--- OUTSIDE RECORDS SUMMARY | 2024-06-25 11:42 | XMS_ITS | Clinical Summary ---
Author Organization [facility] Paula andrew [facility] Address [address] [place] [address] Care Team Providers Care Engine Testing Supervisor Name Role Phone Unavailable Primary Care Provider Unavailabl e Social History Tobacco Use Types Packs/Day Years Used Date Smoking Tobacco: Never Assessed Comments Unknown Sex and Gender Information Value Date Recorded Sex Assigned at Not on file Legal Sex Female 10:37 AM ROLL SLICING MACHINE TENDER Gender Identity Not on file Sexual Orientation Not on file Plan of Treatment Upcoming Encounters Date Type Department Care Team (Late st Contact Info) Description 07/01/2024 3:00 PM CDT Office Visit [facility] Oncology and Hematology - [place]erm[place] [address] [facility] [address] [address] Antwan Irvin MD [address] [facility] [address] [place] [address] Health Maintenance Due Date Last Done Comments DTAP/TDAP/TD VACCINES (1 - Tdap) 1954 PNEUMOCOCCAL VACCINE 50+ YEARS (1 of 1 - PCV) 06/12/18 86 ZOSTER VACCINE (1 of 2) 1985 OSTEOPOROSIS SCREENING 2000 RSV VACCINE (60+ or ) (1 - 1-dose 75+ series) 2010 INFLUENZA VACCINE (#1) 2023 Insurance [facility] [id number]
--- NOTE | 2024-06-25 16:44 | ED.GENADULT ---
HPI - General Adult General Chief complaint: Extremity Problem,Nontraumatic Stated complaint: right shoulder pain, bruising, multiple complaints Time Seen by Provider: 06/25/24 14:25 History of Present Illness HPI narrative: 89-year-old female presented to the emergency department for evaluation for right-sided chest wall and right breast bruising. Patient's primary complaint was bruising to the right chest and right shoulder pain. Patient denies that she had a fall but states she did run into a door. Patient denies any other pain or injury. Patient denies any new numbness or weakness. Related Data Home Medications ?Medication ?Instructions ?Recorded ?Confirmed ?Last Taken ?Type levothyroxine 75 mcg tablet 75 mcg PO DAILY 10/13/20 01/28/24 12/20/23 05:55 History simvastatin 20 mg tablet 20 mg PO DAILY 10/13/20 01/28/24 12/20/23 09:55 History meclizine 25 mg tablet 25 mg PO BID Dizziness 04/13/21 01/28/24 12/20/23 09:50 History Vitamin D3 2,500 unit PO DAILY 08/01/22 01/28/24 12/20/23 09:50 History cyanocobalamin (vitamin B-12) 2,500 mcg PO DAILY 08/01/22 01/28/24 12/20/23 09:50 History 2,500 mcg tablet furosemide 20 mg tablet (Lasix) 20 mg PO EVERY OTHER DAY PRN edema 12/16/23 01/28/24 12/20/23 09:50 History or weight gain potassium chloride 20 mEq oral 20 meq PO DAILY 12/16/23 01/28/24 12/20/23 09:50 History packet Allergies Allergy/AdvReac Type Severity Reaction Status Date / Time No Known Allergies Allergy Verified 01/28/24 09:35 Review of Systems Review of Systems: All systems reviewed & are unremarkable except as noted in HPI and below PMFSH Past Medical History Medical History Atrial fibrillation 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 EF as low as 20 to 25% in September 2020 but improved to 57% in January 2021. Congestive heart failure Hyperlipidemia Hypertension Hypothyroidism Surgical History Surgical History History of bilateral cataract extraction History of hip surgery History of hysterectomy for benign disease Family History Family History Father Tuberculosis Social History Social History Social History: Surrogate decision maker: Celina Toribio and Leda Farr, daughters. She has 3 children, 2 girls and a boy. Her daughter lives with her. 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 Code status: Full code. Smoking status: Never smoker Second hand tobacco smoke exposure: Yes Alcohol intake: former Drinks per week: 1 Substance use: never Substance use type: does not use Do You Feel Safe in your Home?: Yes Lack of Transportation: No Lack of Food: Never True Current Housing: I Have Housing Concerned About Future Housing: No Difficulty Paying Gas/Electric Bills: No Difficulty Paying for Meds: No Currently Unemployed: No Education: High School Diploma/GED Difficulty w/ Childcare or Family Care: No Living arrangements: alone Additional living arrangements comments: The patient is and lives in her own home in [place]. 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 HEAD: normocephalic, atraumatic. EYES: PERRLA/EOMI, conjunctivae clear. NOSE: Normal no drainage EARS:TMS clear with good light reflex. THROAT: Pharynx clear, no exudate. NECK: Supple. No adenopathy, no masses. RESPIRATORY: Airway patent, respirations nonlabored. Clear to auscultation bilaterally, no rales, rhonchi, wheezing. CARDIOVASCULAR: Regular rate and rhythm without murmurs rubs or gallops. ABDOMINAL: Soft, nontender, nondistended, normal bowel sounds MUSCULOSKELETAL: Moves all extremities. Strength/ROM intact, No edema, No calf tenderness. NEURO: Alert. Cranial nerves II through XII intact. Grossly intact SKIN: Bruising to right breast, no hematoma Course Vital Signs Vital signs: Vital Signs Temperature 97.7 F 06/25/24 11:26 Pulse Rate 66 06/25/24 11:26 Respiratory Rate 16 06/25/24 11:26 Blood Pressure 146/51 H 06/25/24 11:26 Pulse Oximetry 98 06/25/24 11:26 Oxygen Delivery Room Air 06/25/24 11:26 Temperature 97.7 F 06/25/24 11:26 Pulse Rate 79 06/25/24 17:45 Respiratory Rate 23 H 06/25/24 17:45 Blood Pressure 157/91 H 06/25/24 16:46 Pulse Oximetry 98 06/25/24 17:45 Oxygen Delivery Room Air 06/25/24 11:26 Medical Decision Making MDM Narrative Medical decision making narrative: Patient did have minimal back pain at T for. Patient had no significant right-sided rib tenderness to palpation. X-ray was negative for pneumothorax. Did show a right 5th rib fracture and a T4 compression fracture. Patient denies any numbness or weakness and denies any change in bowel or bladder habits. Patient is having Follow up this week with Dr. Lloyd for low platelets. Patient family updated on the results of the workup. Patient was provided incentive spirometer due to the right-sided rib fracture. All questions concerns were addressed patient was comfortable plan for discharge and close follow-up Differential Diagnosis Differential Diagnosis: Pneumonia, hematoma, ecchymosis, rib fracture, shoulder injury Vital Signs Vital Signs: Vital Signs Temperature 97.7 F 06/25/24 11:26 Pulse Rate 66 06/25/24 11:26 Respiratory Rate 16 06/25/24 11:26 Blood Pressure 146/51 H 06/25/24 11:26 Pulse Oximetry 98 06/25/24 11:26 Oxygen Delivery Room Air 06/25/24 11:26 Temperature 97.7 F 06/25/24 11:26 Pulse Rate 79 06/25/24 17:45 Respiratory Rate 23 H 06/25/24 17:45 Blood Pressure 157/91 H 06/25/24 16:46 Pulse Oximetry 98 06/25/24 17:45 Oxygen Delivery Room Air 06/25/24 11:26 Imaging Data Radiologist's impression: Impressions Shoulder X-Ray 06/25/24 13:38 IMPRESSION: Findings within the right lateral chest wall for which cross-sectional imaging (noncontrast enhanced CT examination of the chest) is recommended for further evaluation, as a right lateral rib fracture is suspected. Chest CT 06/25/24 15:13 IMPRESSION: 1. Mildly displaced acute posterolateral right fifth rib fracture and recent-appearing, likely acute T4 burst fracture with 40% central vertebral body height loss and 2-3 mm retropulsion. 2. No acute cardiopulmonary disease. 3. Mild emphysema with mild reticular pattern of atelectasis versus chronic interstitial lung disease at the periphery of both lungs. 4. Cardiomegaly with biatrial enlargement. 5. Ascending thoracic aortic aneurysm measuring up to 4.6 cm. Discharge Plan Discharge Clinical Impression: Fracture of rib of right side, Compression fracture of T4 vertebra Patient Disposition: Home, Self-Care Condition: Stable Instructions: Antibiotic Form, How to Use an Incentive Spirometer (ED), Rib Fracture (ED), Vertebral Compression Fracture (ED) Additional Instructions: Have close follow-up with your primary care physician. If you have any worsening symptoms please call or return to the emergency department. Have close follow-up with Oncology as scheduled. Have close follow-up with Neurosurgery. Incentive spirometer as directed. Patient Language: Bahamian Prescriptions: No Action acetaminophen 325 mg Tablet 650 mg PO Q4H PRN (Reason: Mild Pain (1-5) Or Fever) Qty: 30 0RF metoprolol succinate [Toprol XL] 25 mg Tablet Extended Release 24 Hr 125 mg PO QAM Qty: 30 0RF oxybutynin chloride 5 mg Tablet 5 mg PO BID Qty: 60 0RF meclizine 25 mg Tablet 25 mg PO BID cyanocobalamin (vitamin B-12) 2,500 mcg Tablet 2,500 mcg PO DAILY Vitamin D3 2,500 unit PO DAILY potassium chloride 20 mEq packet 20 meq PO DAILY Rx Instructions: 20 mEq orally when you take your lasix (furosemide). Next due 12/22/23 furosemide [Lasix] 20 mg tablet 20 mg PO EVERY OTHER DAY PRN (Reason: edema or weight gain) Patient Comments: takes sat, sat, saturday in am Rx Instructions: Next dose due 12/22/23 levothyroxine 75 mcg tablet 75 mcg PO DAILY simvastatin 20 mg tablet 20 mg PO DAILY Eliquis 2.5 mg Tablet 2.5 mg PO Q12HR Qty: 60 1RF Follow-up/Referrals: Antwan Irvin MD [Physician] - Asya Gresham MD [Physician] - Dominick,Adarsh Fenton MD [Primary Care Provider] -
--- OUTSIDE RECORDS SUMMARY | 2024-06-25 16:46 | XMS_ITS | CONTINUITY OF CARE DOCUMENT ---
Author Name [email or web address] Address Unknown Organization [facility] Address [address] [facility] [address] [place] [address] Phone [phone] Care Team Providers Care Clarifier Operator Helper Name Role Phone Mehul MCKAY, Charly Unavailable [phone] CASANDRA MCKAY, YOLANDA Unavailable [phone] YOLANDA GUAJARDO MD Unavailable [phone] PROBLEMS Condition Status Date Provider Notes Chest pain active Charly Carver MD INSURANCE PROVIDERS Payer name Policy type / Coverage type [employer]er red democrat ID [employer] [id number] [place] MEDICARE Medicare [id number] HISTORY OF PROCEDURES Procedure Date Procedure Name Provider Procedure Notes S tatus Cardiolite, 2 units Charly Carver MD completed SPECT Images Charly Carver MD complet ed Stress EKG Charly Carver MD completed Holter, 24 or 48 Charly Carver MD com pleted
--- OUTSIDE RECORDS SUMMARY | 2024-06-25 16:46 | XMS_ITS | Referral Summary ---
Author Organization [facility] [address] [facility] [address] Address [address] [place] [address] Care Team Providers Care Sow Manager Name Role Phone Adarsh Tan MD Primary Care Provider Encounters Date Type Department Care Team Description 05/28/2024 11:30 AM SEARCH SPECIALIST Office Visit [facility] Cardiology [address] [facility] [address] [place] [address] Homar Greenwood MD Permanent atrial [...] 1 tablet (75 mcg total) by mouth pole maker before breakfast Active metoprolol XL (TOPROL-XL) 100 [...] Comments Blood Pressure 130/70 05/28/2024 11:32 AM SEARCH SPECIALIST Pulse 72 05/28/2024 11:32 AM SEARCH SPECIALIST Temperature - - Respiratory Rate - - Oxygen Saturation 96% 05/28/2024 11:32 AM SEARCH SPECIALIST Inhaled Oxygen Concentration - - Weight 52.7 kg (116 lb 1.6 oz) 05/28/2024 11:32 AM SEARCH SPECIALIST Height 165.1 cm (5' 5 ) 05/28/2024 11:32 AM SEARCH SPECIALIST Body Mass Index 19.32 05/28/2024 11:32 AM SEARCH SPECIALIST Plan of Treatment Not on file Insurance MEDICARE [employer] [facility] MED[facility] Address: [address] [address] MEDICARE [employer] [facility] MEDIC[facility] Address: [facility] [address] [place] [address] Care Teams Sow Manager Relationship Specialty Start Date End Date Adarsh Tan MD [address] [place] [address] PCP - General Internal Medicine 10/12/20
--- OUTSIDE RECORDS SUMMARY | 2024-06-25 16:46 | XMS_ITS | Data Portability ---
Author Organization [place] [facility] [employer], Main Office Address [address] [place] [address] Assessment No assessment recorded. Plan of Treatment Reminders Order Date Submit Date Provider Last Modified By Organization Details Last Modified Time Details Appointments None recorded . Lab lipid panel, serum 024 04/01/20 24 [facility], [address] [place], [address], 4 19:58:48 CMP, serum or plasma 024 04/01/20 24 [facility], [address] [place], [address], 4 19:58:50 TSH, serum or plasma 024 04/01/20 24 [facility], [address] [place], [address], 4 19:58:54 T4, free, serum 024 04/01/20 24 [facility], [address] [place], [address], 4 19:58:53 CBC w/ auto diff 024 04/01/20 24 [facility], [address] [place], [address], 4 19:58:51 lipid panel, serum 024 11/27/19 24 [facility], [address] [place], [address], 4 16:32:30 CMP, serum or plasma 024 11/27/19 24 [facility], [address] [place], [address], 4 16:32:25 T4, free, serum 024 11/27/19 24 [facility], [address] [place], [address], 4 16:31:03 TSH, serum or plasma 024 11/27/19 24 [facility], [address] [place], [address], 4 16:45:53 CBC w/ auto diff 024 11/27/19 24 [facility], [address] [place], [address], 4 13:54:53 BMP, serum or plasma 024 11/27/19 24 [email or web address] [facility], [address] [place], [address], 4 17:15:58 Referral None recorded . Procedures None recorded . Surgeries None recorded . Imaging None recorded . Medication Orders None recorded . Patient TargetsNo targets recorded. Patient Instructions Encounter Date Encounter Id Patient Instructions Last Modified By Organization Details Last Modified Time 08/15/2023 [id number] Follow-up from emergency room for hypokalemia. The hypokalemia has been corrected up to 4.1 now. Will continue on current Rx follow at her regularly scheduled appointment in November. Keep Appointment: Sat 10:20 AM Vick Portions of the record may have been created with voice recognition software. Occasional wrong-word or [id number]-[id number] substitutions may have occurred due to the inherent limitations of voice recognition software. Read the chart carefully and recognize, using context, where substitutions have occurred. [email or web address] Not available 08/15/2023 11:04:10 11/27/2023 [id number] Follow-up for history of congestive heart failure, paroxysmal atrial fibrillation, hypothyroidism, neuropathy as well as hyperlipidemia all clinically stable. Try to instructed patient to try to use walker or cane more frequently. Still has problems with ambulating at times. But she is quite recalcitrant as far as doing so. Is actually due for a mammogram but does not wish to have one done. Will check blood work consisting of CBC, CMP, lipid, thyroid and BNP. Continue on current Rx follow-up in four months Next Appointment: 4 Months Approximate Date: 03/26/2024 Portions of the record may have been created with voice recognition software. Occasional wrong-word or tdgpi-p-[id number] substitutions may have occurred due to the inherent limitations of voice recognition software. Read the chart carefully and recognize, using context, where substitutions have occurred. [email or web address] Not available 11/27/2023 11:41:50 01/15/2024 [id number] dementia rating scale-2* [email or web address] Not available 01/15/2024 11:30:41 alcohol misuse* [email or web address] Not available 01/15/2024 11:30:41 depression screening* Not available 01/15/2024 11:30:41 Timed Up and Go test (TUG)* [email or web address] Not available 01/15/2024 11:30:41 multi-dimensiona l health assessment questionnaire* [email or web address] Not available 01/15/2024 11:30:40 Personalized Hea lth Plan and Screening Recommendations Advance Directives - Do you have one? Yes Advance Directives - Do we have your advance directive on file in your health record? No, please bring in a copy at your earliest convenience Primary Prevention/Interven tion (prevents or decreases the chance of common diseases from occurring) Smoking Risk: Non Smoker Alcohol Misuse Screening: Negative Weight: Appropriate Physical activity: Need more exercise/physical activity Nutrition: Good Average Fall Risk (screened today): Low Intermediate Refer to attached handout Preventing Falls: After your Visit Recommend regular use of cane or walker Vaccines Pneumococcal: Ordered Recommended today Recommended today, but you have declined No further needed Influenza: Your next one in the fall of this year Chronic Disease Risks Stroke: Low Risk Intermediate Risk I have no recommendations Act italo diagnosis, Continue current treatment plan Heart Attack: Low risk Intermediate Risk I have no recommendations Act italo diagnosis, Continue current treatment plan Clogging of the Arteries: Low risk Intermediate Risk I have no recommendations Act italo diagnosis, Continue current treatment plan Diabetes: Low Risk I have no recommendations Secondary Prevention/Interven tion (detects treatable diseases before they may cause symptoms, disability, or ) Breast Cancer Screening with mammogram: No screening necessary Cervical/Uterine/Ov ti Cancer Screening: No screening necessary Osteoporosis Screening: No screening necessary Date Screening Last Performed: Colon Cancer Screening: Colonoscopy No screening necessary Date Screening Last Performed: __2014__ Eye Disease Screening: Dementia Risk: Low I have no recommendations Depression Screening: Negative [email or web address] Not available 01/15/2024 11:12:41 Medicare wellnes s evaluation risk assessment stable. Follow-up for persistent atrial fibrillation, hyper cholesterol anemia hypothyroidism. Recent fractured femur secondary to a fall at home. Is on the going physical therapy and using a walker on a regular basis at this juncture. Will continue on current Rx already has a follow-up appointment in March. Will keep that. Additional Orders - Directives - Recommendations 1. May stop the hydrocodone 2. Take Tylenol 650 mg capsules one 4 times a day Keep Appointment: Sat 10:30 AM [place] Portions of the record may have been created with voice recognition software. Occasional wrong-word or qbjor-l-gosz substitutions may have occurred due to the inherent limitations of voice recognition software. Read the chart carefully and recognize, using context, where substitutions have occurred. [email or web address] Not available 01/15/2024 11:30:23 04/01/2024 [id number] . Follow-up paroxysmal atrial fibrillation, hyperlipidemia, hypothyroidism all clinically stable. Overall doing well. Does not use her walker as instructed on a regular basis. The daughter has been on her about this but she tends to forget to utilize it particularly in the house. Clinically is doing well otherwise. Check a CMP, lipid, CBC and thyroid panel. Continue on current Rx follow-up in four months Follow Up: 4 Months Approximate Date: 07/30/2024 Portions of the record may have been created with voice recognition software. Occasional wrong-word or [id number] substitutions may have occurred due to the inherent limitations of voice recognition software. Read the chart carefully and recognize, using context, where substitutions have occurred. Created: Adarsh Tan M.D. 04.01.2024 10:58 AM [email or web address] Not available 04/01/2024 11:58:56 Reason for Referral None Reported. Results Created Date Observation Date Name Description Value Unit Range Abnormal Flag Note LastModifiedBy Organization Detail LastModifiedTime 07/24/19 24 07/24/2023 CBC/C OMPLE TE BLD COUNT W/DIF F white blood cells 6.6 x10'3 /uL 4.2-10 .8 Not Available [facility] (Lab) [address] [place], [address], 07/24/2023 14:19:50 07/24/19 24 07/24/2023 CBC/C OMPLE TE BLD COUNT W/DIF F red blood cells 4.10 x10'6 /uL 3.80-5 .20 Not Available [facility] (Lab) [address] [place], [address], 07/24/2023 14:19:50 07/24/19 24 07/24/2023 CBC/C OMPLE TE BLD COUNT W/DIF F hemoglobin 12.3 g/dL 12.0-1 5.6 Not Available [facility] (Lab) [address] [place], [address], 07/24/2023 14:19:50 07/24/19 24 07/24/2023 CBC/C OMPLE TE BLD COUNT W/DIF F hematocrit 38.5 % 35.7-4 5.7 Not Available [facility] (Lab) [address] [place], [address], 07/24/2023 14:19:50 07/24/19 24 07/24/2023 CBC/C OMPLE TE BLD COUNT W/DIF F mean red cell volume 93.9 fL 82.0-9 9.0 Not Available [facility] (Lab) [address] [place], [address], 07/24/2023 14:19:50 07/24/19 24 07/24/2023 CBC/C OMPLE TE BLD COUNT W/DIF F mean red cell hemoglobin 30.0 pg 27.0-3 3.0 Not Available [facility] (Lab) [address] [place], [address], 07/24/2023 14:19:50 07/24/19 24 07/24/2023 CBC/C OMPLE TE BLD COUNT W/DIF F mean RBC HGB concentratio n 31.9 g/dL 31.0-3 6.0 Not Available [facility] (Lab) [address] [place], [address], 07/24/2023 14:19:50 07/24/19 24 07/24/2023 CBC/C OMPLE TE BLD COUNT W/DIF F red cell distribution width 13.5 % 11.8-1 5.5 Not Available [facility] (Lab) [address] [place], [address], 07/24/2023 14:19:50 07/24/19 24 07/24/2023 CBC/C OMPLE TE BLD COUNT W/DIF F platelets 108 x10'3 /uL 150-40 0 low Not Available [facility] (Lab) [address] [place], [address], 07/24/2023 14:19:50 07/24/19 24 07/24/2023 CBC/C OMPLE TE BLD COUNT W/DIF F neutrophils 69.6 % 39.0-7 2.0 Not Available [facility] (Lab) [address] [place], [address], 07/24/2023 14:19:50 07/24/19 24 07/24/2023 CBC/C OMPLE TE BLD COUNT W/DIF F lymphocytes 17.1 % 16.0-4 7.0 Not Available [facility] (Lab) [address] [place], [address], 07/24/2023 14:19:50 07/24/19 24 07/24/2023 CBC/C OMPLE TE BLD COUNT W/DIF F monocytes 10.0 % 5.0-12 .0 Not Available [facility] (Lab) [address] [place], [address], 07/24/2023 14:19:50 07/24/19 24 07/24/2023 CBC/C OMPLE TE BLD COUNT W/DIF F eosinophils 2.3 % 1.0-7. 0 Not Available [facility] (Lab) [address] [place], [address], 07/24/2023 14:19:50 07/24/19 24 07/24/2023 CBC/C OMPLE TE BLD COUNT W/DIF F basophils 0.5 % 0.0-2. 0 Not Available [facility] (Lab) [address] [place], [address], 07/24/2023 14:19:50 07/24/19 24 07/24/2023 CBC/C OMPLE TE BLD COUNT W/DIF F immature granulocytes 0.5 % 0.00-0 .50 Not Available [facility] (Lab) [address] [place], [address], 07/24/2023 14:19:50 07/24/19 24 07/24/2023 CBC/C OMPLE TE BLD COUNT W/DIF F neutrophils, absolute count 4.61 x10'3 /uL 1.5-8. 0 Not Available [facility] (Lab) [address] [place], [address], 07/24/2023 14:19:50 07/24/19 24 07/24/2023 CBC/C OMPLE TE BLD COUNT W/DIF F lymphocytes, absolute count 1.13 x10'3 /uL 1.07-3 .43 Not Available [facility] (Lab) [address] [place], [address], 07/24/2023 14:19:50 07/24/19 24 07/24/2023 CBC/C OMPLE TE BLD COUNT W/DIF F monocytes, absolute count 0.66 x10'3 /uL 0.29-0 .99 Not Available [facility] (Lab) [address] [place], [address], 07/24/2023 14:19:50 07/24/19 24 07/24/2023 CBC/C OMPLE TE BLD COUNT W/DIF F eosinophils, absolute count 0.15 x10'3 /uL 0.02-0 .53 Not Available [facility] (Lab) [address] [place], [address], 07/24/2023 14:19:50 07/24/19 24 07/24/2023 CBC/C OMPLE TE BLD COUNT W/DIF F basophils, absolute count 0.03 x10'3 /uL 0.01-0 .08 Not Available [facility] (Lab) [address] [place], [address], 07/24/2023 14:19:50 07/24/19 24 07/24/2023 CBC/C OMPLE TE BLD COUNT W/DIF F immature granulocytes ,absolute 0.03 x10'3 /uL 0.00-0 .05 Not Available [facility] (Lab) [address] [place], [address], 07/24/2023 14:19:50 07/24/19 24 07/24/2023 CBC/C OMPLE TE BLD COUNT W/DIF F nucleated red blood cells 0.0 % -0 Not Available [facility] (Lab) [address] [place], [address], 07/24/2023 14:19:50 07/24/19 24 07/24/2023 CBC/C OMPLE TE BLD COUNT W/DIF F NRBC# 0.00 x10'3 /uL Not Available [facility] (Lab) [address] [place], [address], 07/24/2023 14:19:50 07/24/19 24 07/24/2023 TSH thyroid-stim ulating hormone 0.124 uIU/m L 0.465- 4.680 low Not Available [facility] (Lab) [address] [place], [address], 07/24/2023 17:56:05 07/24/19 24 07/24/2023 T4 FREE free T4 1.87 NG/dL 0.78-2 .19 Not Available [facility] (Lab) [address] [place], [address], 07/24/2023 17:56:25 07/24/19 24 07/24/2023 LIPID PANEL cholesterol 106 mg/dL 140-19 9 low NIH BECKI NSUS RECOM MENDA TION FOR MADELEINE STERO L: ADULT CHILD LOW RISK: <200 <170 BORDE RLINE : <200- 239 ----- HIGH RISK: >240 >200 Not Available [facility] (Lab) [address] [place], [address], 07/24/2023 18:02:47 07/24/19 24 07/24/2023 LIPID PANEL triglyceride s 124 mg/dL 0-150 NIH BECKI NSUS REPOR T RECOM MENDA TION FOR TRIGL YCERI HARLEY: ADULT CHILD LOW RISK: <150 ----- BODER LINE: 150-1 99 ----- HIGH RISK: >200 ----- Not Available [facility] (Lab) [address] [place], [address], 07/24/2023 18:02:47 07/24/1907/24/2023 LIPID PANEL HDL cholesterol 38 mg/dL 40- low Not Available [facility] (Lab) [address] [place], [address], 07/24/2023 18:02:47 07/24/19 24 07/24/2023 LIPID PANEL LDL cholesterol, calculated 43 mg/dL 0-130 NIH BECKI NSUS REPOR T RECOM MENDA TIONS FOR LDL: ADULT CHILD LOW RISK <130 <110 (OPTI MAL LDL) <100 ----- BORDE RLINE : 130-1 59 ----- HIGH RISK: >160 >130 A TRIGL YCERI DE RESUL T >400 INVAL IDATE S THE CALCU LATIO N FOR LDL FRACT IONAT ION - THE LDL RESUL T WILL NOT BE REPOR YUSUF. Not Available [facility] (Lab) [address] [place], [address], 07/24/2023 18:02:47 07/24/19 24 07/24/2023 COMPR EHENS ITALO METAB OLIC PANEL sodium 140 mmol/ L 137-14 5 Not Available [facility] (Lab) [address] [place], [address], 07/24/2023 18:02:52 07/24/19 24 07/24/2023 COMPR EHENS ITALO METAB OLIC PANEL potassium 3.6 mmol/ L 3.5-5. 1 Not Available [facility] (Lab) [address] [place], [address], 07/24/2023 18:02:52 07/24/19 24 07/24/2023 COMPR EHENS ITALO METAB OLIC PANEL chloride 108 mmol/ L 98-107 high Not Available [facility] (Lab) [address] [place], [address], 07/24/2023 18:02:52 07/24/19 24 07/24/2023 COMPR EHENS ITALO METAB OLIC PANEL carbon dioxide 28 mmol/ L 22-30 Not Available [facility] (Lab) [address] [place], [address], 07/24/2023 18:02:52 07/24/19 24 07/24/2023 COMPR EHENS ITALO METAB OLIC PANEL anion gap 7.6 mmol/ L 14-22 low Not Available [facility] (Lab) [address] [place], [address], 07/24/2023 18:02:52 07/24/19 24 07/24/2023 COMPR EHENS ITALO METAB OLIC PANEL glucose 101 mg/dL 70-99 high Not Available [facility] (Lab) [address] [place], [address], 07/24/2023 18:02:52 07/24/19 24 07/24/2023 COMPR EHENS ITALO METAB OLIC PANEL BUN 11 mg/dL 8-19 Not Available [facility] (Lab) [address] [place], [address], 07/24/2023 18:02:52 07/24/19 24 07/24/2023 COMPR EHENS ITALO METAB OLIC PANEL creatinine 0.80 mg/dL 0.66-1 .25 Not Available [facility] (Lab) [address] [place], [address], 07/24/2023 18:02:52 07/24/19 24 07/24/2023 COMPR EHENS ITALO METAB OLIC PANEL GFR >60 Refer ence Range : Bailey ge GFR Healt hy Adult : >60 mL/mi n/1.7 3 m2 Chron ic Kidne y Disea se: 15-60 mL/mi n/1.7 3 m2 Kidne y Failu re: <15/m L/min /1.73 m2 www.n iddk. nih.g ov The MDRD study equat ion has not been valid ated in child paola <18 years of age; pregn ant women ; the elder ly >85 years of age; or in some racia l or ethni c subgr oups, such as Hispa nics. Outsi de the valid ated paco eters , estim ated GFR is less accur ate, requi ring clini keyona judgm ent on a case- by-ca se basis . Clini keyona inter preta tion for other races and ages must be made by the clini yuriy. The MDRD study equat ion has not been valid ated for the evalu ation of serum creat inine relat ed to nutri patsy l statu s or medic ation usage . For perso ns <18 years of age, a pedia tric GFR calcu lator is avail able on the [facility] websi te: https :[email or web address] rasmussen.o john/pr ofess ional s/kdo qi/gf r_cal culat or Not Available [facility] (Lab) [address] [place], [address], 07/24/2023 18:02:52 07/24/19 24 07/24/2023 COMPR EHENS ITALO METAB OLIC PANEL alkaline phosphatase 84 U/L 38-126 Not Available [facility] (Lab) [address] [place], [address], 07/24/2023 18:02:52 07/24/19 24 07/24/2023 COMPR EHENS ITALO METAB OLIC PANEL alanine aminotransfe rase 15 U/L 0-35 Not Available [facility] (Lab) [address] [place], [address], 07/24/2023 18:02:52 07/24/19 24 07/24/2023 COMPR EHENS ITALO METAB OLIC PANEL aspartate aminotransfe rase 24 U/L 15-37 Not Available [facility] (Lab) [address] [place], [address], 07/24/2023 18:02:52 07/24/19 24 07/24/2023 COMPR EHENS ITALO METAB OLIC PANEL bilirubin, total 1.40 mg/dL 0.20-1 .30 high Not Available [facility] (Lab) [address] [place], [address], 07/24/2023 18:02:52 07/24/19 24 07/24/2023 COMPR EHENS ITALO METAB OLIC PANEL calcium 8.8 mg/dL 8.4-10 .2 Not Available [facility] (Lab) [address] [place], [address], 07/24/2023 18:02:52 07/24/19 24 07/24/2023 COMPR EHENS ITALO METAB OLIC PANEL total protein 5.9 g/dL 6.3-8. 2 low Not Available [facility] (Lab) [address] [place], [address], 07/24/2023 18:02:52 07/24/19 24 07/24/2023 COMPR EHENS ITALO METAB OLIC PANEL albumin 4.0 g/dL 3.0-4. 4 Not Available [facility] (Lab) [address] [place], [address], 07/24/2023 18:02:52 07/24/19 24 07/24/2023 COMPR EHENS ITALO METAB OLIC PANEL globulin 1.9 g/dL 2.6-4. 2 low Not Available [facility] (Lab) [address] [place], [address], 07/24/2023 18:02:52 07/24/19 24 07/24/2023 COMPR EHENS ITALO METAB OLIC PANEL A/G ratio 2.1 ratio 1.0-2. 0 high Not Available [facility] (Lab) [address] [place], [address], 07/24/2023 18:02:52 08/12/19 24 08/12/2023 BASIC METAB OLIC PANEL sodium 140 mmol/ L 137-14 5 Not Available [facility] (Lab) [address] [place], [address], 08/12/2023 15:47:29 08/12/19 24 08/12/2023 BASIC METAB OLIC PANEL potassium 4.1 mmol/ L 3.5-5. 1 Not Available [facility] (Lab) [address] [place], [address], 08/12/2023 15:47:29 08/12/19 24 08/12/2023 BASIC METAB OLIC PANEL chloride 108 mmol/ L 98-107 high Not Available [facility] (Lab) [address] [place], [address], 08/12/2023 15:47:29 08/12/19 24 08/12/2023 BASIC METAB OLIC PANEL carbon dioxide 26 mmol/ L 22-30 Not Available [facility] (Lab) [address] [place], [address], 08/12/2023 15:47:29 08/12/19 24 08/12/2023 BASIC METAB OLIC PANEL anion gap 10.1 mmol/ L 14-22 low Not Available [facility] (Lab) [address] [place], [address], 08/12/2023 15:47:29 08/12/19 24 08/12/2023 BASIC METAB OLIC PANEL glucose 91 mg/dL 70-99 Not Available [facility] (Lab) [address] [place], [address], 08/12/2023 15:47:29 08/12/19 24 08/12/2023 BASIC METAB OLIC PANEL BUN 13 mg/dL 8-19 Not Available [facility] (Lab) [address] [place], [address], 08/12/2023 15:47:29 08/12/19 24 08/12/2023 BASIC METAB OLIC PANEL creatinine 0.90 mg/dL 0.66-1 .25 Not Available [facility] (Lab) [address] [place], [address], 08/12/2023 15:47:29 08/12/19 24 08/12/2023 BASIC METAB OLIC PANEL GFR 59 Refer ence Range : Bailey ge GFR Healt hy Adult : >60 mL/mi n/1.7 3 m2 Chron ic Kidne y Disea se: 15-60 mL/mi n/1.7 3 m2 Kidne y Failu re: <15/m L/min /1.73 m2 www.n iddk. nih.g ov The MDRD study equat ion has not been valid ated in child paola <18 years of age; pregn ant women ; the elder ly >85 years of age; or in some racia l or ethni c subgr oups, such as Hispa nics. Outsi de the valid ated paco eters , estim ated GFR is less accur ate, requi ring clini keyona judgm ent on a case- by-ca se basis . Clini keyona inter preta tion for other races and ages must be made by the clini yuriy. The MDRD study equat ion has not been valid ated for the evalu ation of serum creat inine relat ed to nutri patsy l statu s or medic ation usage . For perso ns <18 years of age, a pedia tric GFR calcu lator is avail able on the [facility] websi te: https ://raulito wakefield.brayan rasmussen.sharon lopez/pr ofess ional s/kdo qi/gf r_cal culat or Not Available [facility] (Lab) [address] [place], [address], 08/12/2023 15:47:29 08/12/19 24 08/12/2023 BASIC METAB OLIC PANEL calcium 9.0 mg/dL 8.4-10 .2 Not Available [facility] (Lab) [address] [place], [address], 08/12/2023 15:47:29 11/27/19 24 11/27/2023 CBC/C OMPLE TE BLD COUNT W/DIF F white blood cells 4.2 x10'3 /uL 4.2-10 .8 Not Available [facility] (Lab) [address] [place], [address], 11/27/2023 13:54:53 11/27/19 24 11/27/2023 CBC/C OMPLE TE BLD COUNT W/DIF F red blood cells 4.16 x10'6 /uL 3.80-5 .20 Not Available [facility] (Lab) [address] [place], [address], 11/27/2023 13:54:53 11/27/19 24 11/27/2023 CBC/C OMPLE TE BLD COUNT W/DIF F hemoglobin 12.7 g/dL 12.0-1 5.6 Not Available [facility] (Lab) [address] [place], [address], 11/27/2023 13:54:53 11/27/19 24 11/27/2023 CBC/C OMPLE TE BLD COUNT W/DIF F hematocrit 39.8 % 35.7-4 5.7 Not Available [facility] (Lab) [address] [place], [address], 11/27/2023 13:54:53 11/27/19 24 11/27/2023 CBC/C OMPLE TE BLD COUNT W/DIF F mean red cell volume 95.7 fL 82.0-9 9.0 Not Available [facility] (Lab) [address] [place], [address], 11/27/2023 13:54:53 11/27/19 24 11/27/2023 CBC/C OMPLE TE BLD COUNT W/DIF F mean red cell hemoglobin 30.5 pg 27.0-3 3.0 Not Available [facility] (Lab) [address] [place], [address], 11/27/2023 13:54:53 11/27/19 24 11/27/2023 CBC/C OMPLE TE BLD COUNT W/DIF F mean RBC HGB concentratio n 31.9 g/dL 31.0-3 6.0 Not Available [facility] (Lab) [address] [place], [address], 11/27/2023 13:54:53 11/27/19 24 11/27/2023 CBC/C OMPLE TE BLD COUNT W/DIF F red cell distribution width 13.5 % 11.8-1 5.5 Not Available [facility] (Lab) [address] [place], [address], 11/27/2023 13:54:53 11/27/19 24 11/27/2023 CBC/C OMPLE TE BLD COUNT W/DIF F platelets 109 x10'3 /uL 150-40 0 low Not Available [facility] (Lab) [address] [place], [address], 11/27/2023 13:54:53 11/27/19 24 11/27/2023 CBC/C OMPLE TE BLD COUNT W/DIF F mean platelet volume 13.3 fL 9.0-12 .4 high Not Available [facility] (Lab) [address] [place], [address], 11/27/2023 13:54:53 11/27/19 24 11/27/2023 CBC/C OMPLE TE BLD COUNT W/DIF F neutrophils 55.1 % 39.0-7 2.0 Not Available [facility] (Lab) [address] [place], [address], 11/27/2023 13:54:53 11/27/19 24 11/27/2023 CBC/C OMPLE TE BLD COUNT W/DIF F lymphocytes 29.8 % 16.0-4 7.0 Not Available [facility] (Lab) [address] [place], [address], 11/27/2023 13:54:53 11/27/19 24 11/27/2023 CBC/C OMPLE TE BLD COUNT W/DIF F monocytes 10.5 % 5.0-12 .0 Not Available [facility] (Lab) [address] [place], [address], 11/27/2023 13:54:53 11/27/19 24 11/27/2023 CBC/C OMPLE TE BLD COUNT W/DIF F eosinophils 3.6 % 1.0-7. 0 Not Available [facility] (Lab) [address] [place], [address], 11/27/2023 13:54:53 11/27/19 24 11/27/2023 CBC/C OMPLE TE BLD COUNT W/DIF F basophils 0.5 % 0.0-2. 0 Not Available [facility] (Lab) [address] [place], [address], 11/27/2023 13:54:53 11/27/19 24 11/27/2023 CBC/C OMPLE TE BLD COUNT W/DIF F immature granulocytes 0.5 % 0.00-0 .50 Not Available [facility] (Lab) [address] [place], [address], 11/27/2023 13:54:53 11/27/19 24 11/27/2023 CBC/C OMPLE TE BLD COUNT W/DIF F neutrophils, absolute count 2.31 x10'3 /uL 1.5-8. 0 Not Available [facility] (Lab) [address] [place], [address], 11/27/2023 13:54:53 11/27/19 24 11/27/2023 CBC/C OMPLE TE BLD COUNT W/DIF F lymphocytes, absolute count 1.25 x10'3 /uL 1.07-3 .43 Not Available [facility] (Lab) [address] [place], [address], 11/27/2023 13:54:53 11/27/19 24 11/27/2023 CBC/C OMPLE TE BLD COUNT W/DIF F monocytes, absolute count 0.44 x10'3 /uL 0.29-0 .99 Not Available [facility] (Lab) [address] [place], [address], 11/27/2023 13:54:53 11/27/19 24 11/27/2023 CBC/C OMPLE TE BLD COUNT W/DIF F eosinophils, absolute count 0.15 x10'3 /uL 0.02-0 .53 Not Available [facility] (Lab) [address] [place], [address], 11/27/2023 13:54:53 11/27/19 24 11/27/2023 CBC/C OMPLE TE BLD COUNT W/DIF F basophils, absolute count 0.02 x10'3 /uL 0.01-0 .08 Not Available [facility] (Lab) [address] [place], [address], 11/27/2023 13:54:53 11/27/19 24 11/27/2023 CBC/C OMPLE TE BLD COUNT W/DIF F immature granulocytes ,absolute 0.02 x10'3 /uL 0.00-0 .05 Not Available [facility] (Lab) [address] [place], [address], 11/27/2023 13:54:53 11/27/19 24 11/27/2023 CBC/C OMPLE TE BLD COUNT W/DIF F nucleated red blood cells 0.0 % -0 Not Available [facility] (Lab) [address] [place], [address], 11/27/2023 13:54:53 11/27/19 24 11/27/2023 CBC/C OMPLE TE BLD COUNT W/DIF F NRBC# 0.00 x10'3 /uL Not Available [facility] (Lab) [address] [place], [address], 11/27/2023 13:54:53 11/27/19 24 11/27/2023 T4 FREE free T4 1.74 NG/dL 0.78-2 .19 Not Available [facility] (Lab) [address] [place], [address], 11/27/2023 16:34:17 11/27/19 24 11/27/2023 COMPR EHENS ITALO METAB OLIC PANEL sodium 138 mmol/ L 137-14 5 Not Available [facility] (Lab) [address] [place], [address], 11/27/2023 16:32:25 11/27/19 24 11/27/2023 COMPR EHENS ITALO METAB OLIC PANEL potassium 4.1 mmol/ L 3.5-5. 1 Not Available [facility] (Lab) [address] [place], [address], 11/27/2023 16:32:25 11/27/19 24 11/27/2023 COMPR EHENS ITALO METAB OLIC PANEL chloride 112 mmol/ L 98-107 high Not Available [facility] (Lab) [address] [place], [address], 11/27/2023 16:32:25 11/27/19 24 11/27/2023 COMPR EHENS ITALO METAB OLIC PANEL carbon dioxide 25 mmol/ L 22-30 Not Available [facility] (Lab) [address] [place], [address], 11/27/2023 16:32:25 11/27/19 24 11/27/2023 COMPR EHENS ITALO METAB OLIC PANEL anion gap 5.1 mmol/ L 14-22 low Not Available [facility] (Lab) [address] [place], [address], 11/27/2023 16:32:25 11/27/19 24 11/27/2023 COMPR EHENS ITALO METAB OLIC PANEL glucose 102 mg/dL 70-99 high Not Available [facility] (Lab) [address] [place], [address], 11/27/2023 16:32:25 11/27/19 24 11/27/2023 COMPR EHENS ITALO METAB OLIC PANEL BUN 20 mg/dL 8-19 high Not Available [facility] (Lab) [address] [place], [address], 11/27/2023 16:32:25 11/27/19 24 11/27/2023 COMPR EHENS ITALO METAB OLIC PANEL creatinine 0.94 mg/dL 0.66-1 .25 Not Available [facility] (Lab) [address] [place], [address], 11/27/2023 16:32:25 11/27/19 24 11/27/2023 COMPR EHENS ITALO METAB OLIC PANEL GFR 56 Refer ence Range : Bailey ge GFR Healt hy Adult : >60 mL/mi n/1.7 3 m2 Chron ic Kidne y Disea se: 15-60 mL/mi n/1.7 3 m2 Kidne y Failu re: <15/m L/min /1.73 m2 www.n iddk. nih.g ov The MDRD study equat ion has not been valid ated in child paola <18 years of age; pregn ant women ; the elder ly >85 years of age; or in some racia l or ethni c subgr oups, such as Hisga nics. Outsi de the valid ated paco eters , estim ated GFR is less accur ate, requi ring clini keyona judgm ent on a case- by-ca se basis . Clini keyona inter preta tion for other races and ages must be made by the clini yuriy. The MDRD study equat ion has not been valid ated for the evalu ation of serum creat inine relat ed to nutri patsy l statu s or medic ation usage . For perso ns <18 years of age, a pedia tric GFR calcu lator is avail able on the NKF websi te: https ://raulito rasmussen.sharon lopez/pr rene suttonal s/kdo qi/gf r_cal culat or Not Available [facility] (Lab) [address] [place], [address], 11/27/2023 16:32:25 11/27/19 24 11/27/2023 COMPR EHENS ITALO METAB OLIC PANEL alkaline phosphatase 89 U/L 38-126 Not Available [facility] (Lab) [address] [place], [address], 11/27/2023 16:32:25 11/27/19 24 11/27/2023 COMPR EHENS ITALO METAB OLIC PANEL alanine aminotransfe rase 12 U/L 0-35 Not Available [facility] (Lab) [address] [place], [address], 11/27/2023 16:32:25 11/27/19 24 11/27/2023 COMPR EHENS ITALO METAB OLIC PANEL aspartate aminotransfe rase 24 U/L 15-37 Not Available [facility] (Lab) [address] [place], [address], 11/27/2023 16:32:25 11/27/19 24 11/27/2023 COMPR EHENS ITALO METAB OLIC PANEL bilirubin, total 1.60 mg/dL 0.20-1 .30 high Not Available [facility] (Lab) [address] [place], [address], 11/27/2023 16:32:25 11/27/19 24 11/27/2023 COMPR EHENS ITALO METAB OLIC PANEL calcium 9.1 mg/dL 8.4-10 .2 Not Available [facility] (Lab) [address] [place], [address], 11/27/2023 16:32:25 11/27/19 24 11/27/2023 COMPR EHENS ITALO METAB OLIC PANEL total protein 6.1 g/dL 6.3-8. 2 low Not Available [facility] (Lab) [address] [place], [address], 11/27/2023 16:32:25 11/27/19 24 11/27/2023 COMPR EHENS ITALO METAB OLIC PANEL albumin 3.9 g/dL 3.0-4. 4 Not Available [facility] (Lab) [address] [place], [address], 11/27/2023 16:32:25 11/27/19 24 11/27/2023 COMPR EHENS ITALO METAB OLIC PANEL globulin 2.2 g/dL 2.6-4. 2 low Not Available [facility] (Lab) [address] [place], [address], 11/27/2023 16:32:25 11/27/19 24 11/27/2023 COMPR EHENS ITALO METAB OLIC PANEL A/G ratio 1.8 ratio 1.0-2. 0 Not Available [facility] (Lab) [address] [place], [address], 11/27/2023 16:32:25 11/27/19 24 11/27/2023 LIPID PANEL cholesterol 112 mg/dL 140-19 9 low NIH BECKI NSUS RECOM MENDA TION FOR MADELEINE STERO L: ADULT CHILD LOW RISK: <200 <170 BORDE RLINE : <200- 239 ----- HIGH RISK: >240 >200 Not Available [facility] (Lab) [address] [place], [address], 11/27/2023 16:32:30 11/27/19 24 11/27/2023 LIPID PANEL triglyceride s 139 mg/dL 0-150 NIH BECKI NSUS REPOR T RECOM MENDA TION FOR TRIGL YCERI HARLEY: ADULT CHILD LOW RISK: <150 ----- BODER LINE: 150-1 99 ----- HIGH RISK: >200 ----- Not Available [facility] (Lab) [address] [place], [address], 11/27/2023 16:32:30 11/27/19 24 11/27/2023 LIPID PANEL HDL cholesterol 36 mg/dL 40- low Not Available [facility] (Lab) [address] [place], [address], 11/27/2023 16:32:30 11/27/19 24 11/27/2023 LIPID PANEL LDL cholesterol, calculated 48 mg/dL 0-130 NIH BECKI NSUS REPOR T RECOM MENDA TIONS FOR LDL: ADULT CHILD LOW RISK <130 <110 (OPTI MAL LDL) <100 ----- BORDE RLINE : 130-1 59 ----- HIGH RISK: >160 >130 A TRIGL YCERI DE RESUL T >400 INVAL IDATE S THE CALCU LATIO N FOR LDL FRACT IONAT ION - THE LDL RESUL T WILL NOT BE REPOR YUSUF. Not Available [facility] (Lab) [address] [place], [address], 11/27/2023 16:32:30 11/27/19 24 11/27/2023 TSH thyroid-stim ulating hormone 0.061 uIU/m L 0.465- 4.680 low Not Available [facility] (Lab) [address] [place], [address], 11/27/2023 16:45:53 12/02/19 24 12/02/2023 VITAM IN B12 (DIAZ DARLYN ) vb12 >1000 pg/mL 239-93 1 high Not Available [facility] (Lab) [address] [place], [address], 12/02/2023 13:21:02 04/06/20 24 04/06/2024 LIPID PANEL , STAND CARLY cholesterol, total 97 mg/dL <200 normal Not Available [facility] [address] [address] [place], [address], 04/06/2024 19:58:48 04/06/20 24 04/06/2024 LIPID PANEL , STAND CARLY HDL cholesterol 32 mg/dL > or = 50 low Not Available [employer] [facility] [address] [address] [place], [address], 04/06/2024 19:58:48 04/06/20 24 04/06/2024 LIPID PANEL , STAND CARLY triglyceride s 82 mg/dL <150 normal Not Available [facility] [address] [place], [address], 04/06/2024 19:58:48 04/06/20 24 04/06/2024 LIPID PANEL , STAND CARLY LDL-choleste rol 49 mg/dL _(keyona c) normal Refer ence range : <100 Promise able range <100 mg/dL for prima ry preve ntion ; <70 mg/dL for patie nts with CHD or diabe tic patie nts with > or = 2 CHD risk facto rs. LDL-C is now calcu lated using the Tamanna n-Hop kins calcu ozzy n, which is a valid ated novel metho d estefani santoyo accur acy than the Fried oscar equat ion in the estim ation of LDL-C . Tamanna osorio SS et al. NOHEMY. 2013; 310(1 9): 2061- 2068 (http ://ed ucati on.Amura Marie StockTwits. com/f aq/FA Q164) Not Available [facility] [address] [address], [place], [address], 04/06/2024 19:58:48 04/06/20 24 04/06/2024 LIPID PANEL , STAND CARLY chol/HDLC ratio 3.0 (calc ) <5.0 normal Not Available [facility] [address] [place], [address], 04/06/2024 19:58:48 04/06/20 24 04/06/2024 LIPID PANEL , STAND CARLY non HDL cholesterol 65 mg/dL _(keyona c) <130 normal For patie nts with diabe cielo plus 1 major ASCVD risk facto r, treat ing to a non-H DL-C goal of <100 mg/dL (LDL- C of <70 mg/dL ) is consi dered a thera pepapo c optio n. Not Available [facility] [address] [place], [address], 04/06/2024 19:58:48 04/06/20 24 04/06/2024 COMPR EHENS ITALO METAB OLIC PANEL glucose 96 mg/dL 65-99 normal Fasti ng refer ence inter tim Not Available [address], [address], 04/06/2024 19:58:50 04/06/20 24 04/06/2024 COMPR EHENS ITALO METAB OLIC PANEL urea nitrogen (BUN) 14 mg/dL 7-25 normal Not Available [address], [address], 04/06/2024 19:58:50 04/06/20 24 04/06/2024 COMPR EHENS ITALO METAB OLIC PANEL creatinine 0.98 mg/dL 0.60-0 .95 high Not Available [address], [address], 04/06/2024 19:58:50 04/06/20 24 04/06/2024 COMPR EHENS ITALO METAB OLIC PANEL eGFR 56 mL/mi n/1.7 3m2 > or = 60 low Not Available [address], [address], 04/06/2024 19:58:50 04/06/20 24 04/06/2024 COMPR EHENS ITALO METAB OLIC PANEL BUN/creatini ne ratio 14 (calc ) 6-22 normal Not Available [address], [address], 04/06/2024 19:58:50 04/06/20 24 04/06/2024 COMPR EHENS ITALO METAB OLIC PANEL sodium 144 mmol/ L 135-14 6 normal Not Available [address], [address], 04/06/2024 19:58:50 04/06/20 24 04/06/2024 COMPR EHENS ITALO METAB OLIC PANEL potassium 4.0 mmol/ L 3.5-5. 3 normal Not Available [address] [address] [place], [address], 04/06/2024 19:58:50 04/06/20 24 04/06/2024 COMPR EHENS ITALO METAB OLIC PANEL chloride 109 mmol/ L 98-110 normal Not Available [address] [place], [address], 04/06/2024 19:58:50 04/06/20 24 04/06/2024 COMPR EHENS ITALO METAB OLIC PANEL carbon dioxide 26 mmol/ L 20-32 normal Not Available [address], [address], 04/06/2024 19:58:50 04/06/20 24 04/06/2024 COMPR EHENS ITALO METAB OLIC PANEL calcium 8.9 mg/dL 8.6-10 .4 normal Not Available [address], [address], 04/06/2024 19:58:50 04/06/20 24 04/06/2024 COMPR EHENS ITALO METAB OLIC PANEL protein, total 5.8 g/dL 6.1-8. 1 low Not Available [address], [address], 04/06/2024 19:58:50 04/06/20 24 04/06/2024 COMPR EHENS ITALO METAB OLIC PANEL albumin 3.8 g/dL 3.6-5. 1 normal Not Available [address] [place], [address], 04/06/2024 19:58:50 04/06/20 24 04/06/2024 COMPR EHENS ITALO METAB OLIC PANEL globulin 2.0 g/dL_ (calc ) 1.9-3. 7 normal Not Available [address], [address], 04/06/2024 19:58:50 04/06/20 24 04/06/2024 COMPR EHENS ITALO METAB OLIC PANEL albumin/glob ulin ratio 1.9 (calc ) 1.0-2. 5 normal Not Available [address], [address], 04/06/2024 19:58:50 04/06/20 24 04/06/2024 COMPR EHENS ITALO METAB OLIC PANEL bilirubin, total 1.4 mg/dL 0.2-1. 2 high Not Available [address], [address], 04/06/2024 19:58:50 04/06/20 24 04/06/2024 COMPR EHENS ITALO METAB OLIC PANEL alkaline phosphatase 88 U/L 37-153 normal Not Available [address], [address], 04/06/2024 19:58:50 04/06/20 24 04/06/2024 COMPR EHENS ITALO METAB OLIC PANEL AST 11 U/L 10-35 normal Not Available [address], [address], 04/06/2024 19:58:50 04/06/20 24 04/06/2024 COMPR EHENS ITALO METAB OLIC PANEL ALT 6 U/L 6-29 normal Not Available [address], [address], 04/06/2024 19:58:50 04/06/20 24 04/06/2024 CBC (INCL UDES DIFF/ PLT) white blood cell count 4.3 thous and/u L 3.8-10 .8 normal Not Available [address], [address], 04/06/2024 19:58:51 04/06/20 24 04/06/2024 CBC (INCL UDES DIFF/ PLT) red blood cell count 3.89 maddie on/uL 3.80-5 .10 normal Not Available [address], [address], 04/06/2024 19:58:51 04/06/20 24 04/06/2024 CBC (INCL UDES DIFF/ PLT) hemoglobin 12.1 g/dL 11.7-1 5.5 normal Not Available [address], [address], 04/06/2024 19:58:51 04/06/20 24 04/06/2024 CBC (INCL UDES DIFF/ PLT) hematocrit 38.6 % 35.0-4 5.0 normal Not Available [address], [address], 04/06/2024 19:58:51 04/06/20 24 04/06/2024 CBC (INCL UDES DIFF/ PLT) MCV 99.2 fL 80.0-1 00.0 normal Not Available [address], [address], 04/06/2024 19:58:51 04/06/20 24 04/06/2024 CBC (INCL UDES DIFF/ PLT) MCH 31.1 pg 27.0-3 3.0 normal Not Available [address], [address], 04/06/2024 19:58:51 04/06/20 24 04/06/2024 CBC (INCL UDES DIFF/ PLT) MCHC 31.3 g/dL 32.0-3 6.0 low For adult s, a sligh t decre ase in the calcu lated MCHC value (in the range of 30 to 32 g/dL) is most likel y not clini kiana signi mckinley t; boo er, it shoul d be inter prete d with cauti on in corre latio n with other red cell paco eters and the patie nt's clini keyona condi tion. Not Available [facility] - [address], [address], 04/06/2024 19:58:51 04/06/20 24 04/06/2024 CBC (INCL UDES DIFF/ PLT) RDW 12.9 % 11.0-1 5.0 normal Not Available [address], [address], 04/06/2024 19:58:51 04/06/20 24 04/06/2024 CBC (INCL UDES DIFF/ PLT) platelet count 100 thous and/u L 140-40 0 low Not Available [facility] [address], [address], 04/06/2024 19:58:51 04/06/20 24 04/06/2024 CBC (INCL UDES DIFF/ PLT) MPV 13.0 fL 7.5-12 .5 high Not Available [address], [address], 04/06/2024 19:58:51 04/06/20 24 04/06/2024 CBC (INCL UDES DIFF/ PLT) absolute neutrophils 2670 cells /uL 1500-7 800 normal Not Available [address], [address], 04/06/2024 19:58:51 04/06/20 24 04/06/2024 CBC (INCL UDES DIFF/ PLT) absolute lymphocytes 920 cells /uL 850-39 00 normal Not Available [address], [address], 04/06/2024 19:58:51 04/06/20 24 04/06/2024 CBC (INCL UDES DIFF/ PLT) absolute monocytes 490 cells /uL 200-95 0 normal Not Available [address], [address], 04/06/2024 19:58:51 04/06/20 24 04/06/2024 CBC (INCL UDES DIFF/ PLT) absolute eosinophils 211 cells /uL 15-500 normal Not Available [address], [address], 04/06/2024 19:58:51 04/06/20 24 04/06/2024 CBC (INCL UDES DIFF/ PLT) absolute basophils 9 cells /uL 0-200 normal Not Available [address], [address], 04/06/2024 19:58:51 04/06/20 24 04/06/2024 CBC (INCL UDES DIFF/ PLT) neutrophils 62.1 % normal Not Available [address], [address], 04/06/2024 19:58:51 04/06/20 24 04/06/2024 CBC (INCL UDES DIFF/ PLT) lymphocytes 21.4 % normal Not Available [address], [address], 04/06/2024 19:58:51 04/06/20 24 04/06/2024 CBC (INCL UDES DIFF/ PLT) monocytes 11.4 % normal Not Available [address], [address], 04/06/2024 19:58:51 04/06/20 24 04/06/2024 CBC (INCL UDES DIFF/ PLT) eosinophils 4.9 % normal Not Available [address], [address], 04/06/2024 19:58:51 04/06/20 24 04/06/2024 CBC (INCL UDES DIFF/ PLT) basophils 0.2 % normal Not Available [address], [address], 04/06/2024 19:58:51 04/06/20 24 04/06/2024 T4, FREE T4, free 1.3 NG/dL 0.8-1. 8 normal Not Available [address], [address], 04/06/2024 19:58:52 04/06/20 24 04/06/2024 TSH TSH 0.25 mIU/L 0.40-4 .50 low Not Available [address], [address], 04/06/2024 19:58:54 05/19/19 25 05/20/2024 RETIC ULOCY TE COUNT reticulocyte count, automated 1.2 % normal Not Available [address], [address], 05/20/2024 03:48:07 05/19/1905/20/2024 RETIC ULOCY TE COUNT reticulocyte , absolute 40244 cells /uL [address] normal Not Available [address], [address], 05/20/2024 03:48:07 05/19/1905/20/2024 CBC (INCL UDES DIFF/ PLT) white blood cell count 5.1 thous and/u L 3.8-10 .8 normal Not Available [address], [address], 05/20/2024 03:48:08 05/19/1905/20/2024 CBC (INCL UDES DIFF/ PLT) red blood cell count 4.19 maddie on/uL 3.80-5 .10 normal Not Available [address], [address], 05/20/2024 03:48:08 05/19/1905/20/2024 CBC (INCL UDES DIFF/ PLT) hemoglobin 12.9 g/dL 11.7-1 5.5 normal Not Available [address], [address], 05/20/2024 03:48:08 05/19/1905/20/2024 CBC (INCL UDES DIFF/ PLT) hematocrit 41.9 % 35.0-4 5.0 normal Not Available [address], [address], 05/20/2024 03:48:08 05/19/1905/20/2024 CBC (INCL UDES DIFF/ PLT) MCV 100.0 fL 80.0-1 00.0 normal Not Available [address], [address], 05/20/2024 03:48:08 05/19/1905/20/2024 CBC (INCL UDES DIFF/ PLT) MCH 30.8 pg 27.0-3 3.0 normal Not Available [address], [address], 05/20/2024 03:48:08 05/19/1905/20/2024 CBC (INCL UDES DIFF/ PLT) MCHC 30.8 g/dL 32.0-3 6.0 low For adult s, a sligh t decre ase in the calcu lated MCHC value (in the range of 30 to 32 g/dL) is most likel y not clini kiana signi fican t; boo er, it shoul d be inter prete d with cauti on in corre lat n with other red cell paco eters and the patie nt's clini keyona condi tion. Not Available [address], [address], 05/20/2024 03:48:08 05/19/1905/20/2024 CBC (INCL UDES DIFF/ PLT) RDW 13.0 % 11.0-1 5.0 normal Not Available [address], [address], 05/20/2024 03:48:08 05/19/1905/20/2024 CBC (INCL UDES DIFF/ PLT) platelet count 88 thous and/u L 140-40 0 low Not Available [address], [address], 05/20/2024 03:48:08 05/19/1905/20/2024 CBC (INCL UDES DIFF/ PLT) MPV 13.9 fL 7.5-12 .5 high Not Available [address], [address], 05/20/2024 03:48:08 05/19/1905/20/2024 CBC (INCL UDES DIFF/ PLT) absolute neutrophils 3330 cells /uL 1500-7 800 normal Not Available [address], [address], 05/20/2024 03:48:08 05/19/1905/20/2024 CBC (INCL UDES DIFF/ PLT) absolute lymphocytes 1122 cells /uL 850-39 00 normal Not Available [address], [address], 05/20/2024 03:48:08 05/19/1905/20/2024 CBC (INCL UDES DIFF/ PLT) absolute monocytes 459 cells /uL 200-95 0 normal Not Available [address], [address], 05/20/2024 03:48:08 05/19/1905/20/2024 CBC (INCL UDES DIFF/ PLT) absolute eosinophils 168 cells /uL 15-500 normal Not Available [facility] [address], [address], 05/20/2024 03:48:08 05/19/1905/20/2024 CBC (INCL UDES DIFF/ PLT) absolute basophils 20 cells /uL 0-200 normal Not Available [facility] [address], [address], 05/20/2024 03:48:08 05/19/1905/20/2024 CBC (INCL UDES DIFF/ PLT) neutrophils 65.3 % normal Not Available [address], [address], 05/20/2024 03:48:08 05/19/1905/20/2024 CBC (INCL UDES DIFF/ PLT) lymphocytes 22.0 % normal Not Available [facility] [address], [address], 05/20/2024 03:48:08 05/19/1905/20/2024 CBC (INCL UDES DIFF/ PLT) monocytes 9.0 % normal Not Available [facility] [address], [address], 05/20/2024 03:48:08 05/19/1905/20/2024 CBC (INCL UDES DIFF/ PLT) eosinophils 3.3 % normal Not Available [facility] [address], [address], 05/20/2024 03:48:08 05/19/1905/20/2024 CBC (INCL UDES DIFF/ PLT) basophils 0.4 % normal Not Available [facility] [address], [address], 05/20/2024 03:48:08 05/19/1905/20/2024 VITAM IN B12/F OLATE , SERUM PANEL vitamin B12 1685 pg/mL 200-11 00 high Not Available [facility] [address], [address], 05/20/2024 03:48:09 05/19/1905/20/2024 VITAM IN B12/F OLATE , SERUM PANEL folate, serum 10.6 NG/mL normal Refer ence Range Low: <3.4 Borde rline : 3.4-5 .4 Clara l: >5.4 Not Available [facility] [address] [address], [place], [address], 05/20/2024 03:48:09 07/31/19 24 07/31/2023 XR, chest No observ ation record ed. [address], [place], [address], 07/31/2023 16:02:29 12/16/19 24 12/16/2023 XR, pelvi s No observ ation record ed. [address], [place], [address], 12/19/2023 17:18:52 12/17/19 24 12/17/2023 XR, hip + pelvi s, bilat eral No observ ation record ed. [address], [place], [address], 12/19/2023 17:19:30 12/20/19 24 12/20/2023 XR, chest , 1 view No observ ation record ed. [address], [place], [address], 12/20/2023 16:53:15 06/26/19 25 06/25/2024 XR, shoul nahomy, 1 view No observ ation record ed. [address], [place], [address], 06/25/2024 16:17:55 06/26/19 25 06/25/2024 CT, chest , w/o contr ast No observ ation record ed. [address], [place], [address], 06/25/2024 16:46:47 Result Notes None recorded. Problems Name Problem SNOMED Code Status Onset Date Resolution Date Notes Provider Name and Address Organization Details Recorded Time Hyperchole sterolemia 74554087 Active Not Available [facility] 3 06:58:07 Anxiety disorder 977587709 Active Not Available [facility] 3 06:58:07 Postablati ve hypothyroi dism 154090842 Completed Not Available [facility] 3 06:58:07 Mass of neck 796815708 Active 2021 Not Available [facility] 3 06:58:07 Lymphadeno damian 54135794 Active 2021 Not Available [facility] 3 06:58:07 Migraine 38352442 Active Not Available [facility] 3 06:58:07 Neuropathy 165308146 Active 2019 Not Available [facility] 3 06:58:07 Vertigo 832760871 Active Not Available [facility] 3 06:58:07 Hypothyroi dism 28950765 Active Not Available [facility] 3 06:58:07 Congestive heart failure 54027351 Active 2020 Not Available [facility] 3 06:58:07 Atrial fibrillati on 19020162 Active 2021 Not Available [facility] 3 06:58:07 Initial insomnia 33506261 Active 2017 Not Available [facility] 3 06:58:07 Swollen abdomen 33022980 Active Not Available [facility] 3 06:58:07 Abscess of neck 8388690 Active 2021 Not Available [facility] 3 06:58:07 Fatigue 07296730 Active Not Available [facility] 3 06:58:07 Otitis media 89229516 Active 2022 Adarsh Tan MD [address], [place], [address] , [employer] [facility] [employer] 3 11:46:53 Acute pharyngiti s 537960503 Active 2022 Adarsh Tan MD [address], [place], [address] , [facility] [employer] [facility] 3 11:05:13 Vitamin D deficiency 96980024 Active 2022 Adarsh Tan MD [address], [place], [address] , [facility] 3 11:06:38 Anemia 025364948 Active 2022 Tammie Pope null, [place] [facility] 3 16:14:43 Cough 58059782 Active 2023 Adarsh Tan MD [address], [address], [place], [address] , [facility] 4 10:30:41 Hypokalemi a 39771705 Active 2023 NENA Delgado, [facility] 4 11:07:29 Overactive urinary bladder 455521197 Active 2023 NENA Delgado, [facility] 4 11:05:16 Acute sinusitis 92168028 Active 2023 Adarsh Tan MD [address], [address], [place], [address] , [facility] 4 15:13:51 Thrombocyt openic disorder 056284648 Active 2023 Adarsh Tan MD [address], [address], [place], [address] , [facility] 4 12:51:10 Dementia 60490829 Active 2023 NENA Delgado, [facility] 4 16:50:41 Acute bronchitis 34846569 Active 2024 Adarsh Tan MD [address], [address], [place], [address] , [facility] 5 11:21:23 Essential thrombocyt hemia 454993761 Active 2024 NENA Delgado, [facility] 5 12:56:04 Problem Notes None recorded. Procedures Surgical History Date Name Laterality Status Provider Name and Address Organization Details Recorded Time 4 Medicare Wellness CPT Code, subsequent completed Junie Lee RN [facility] [employer] [facility] 01/15/2024 11:05:43 4 Nail Debridement completed Javier Yoder DPM [address], [address], [place], [address], [facility] [employer] [facility] 11/04/2023 15:12:59 4 Debridement of Callus or [place] completed Javier Yoder DPM [address], [address], [place], [address], [facility] [employer] [facility] 11/04/2023 15:13:22 3 Medicare Wellness CPT Code, subsequent completed Junie Lee RN [facility] [employer] [facility] 12/05/2022 10:51:58 Imaging Results Imaging Date Name Status LastModified by Organiz ation Details LastModified Time 07/31/2023 XR, chest completed [address] [place] [address], [id number], 07/31/2023 16:02:29 12/16/2023 XR, pelvis completed [email or web address] [address] [place] [address], [id number], 12/19/2023 17:18:52 12/17/2023 XR, hip + pelvis, bilateral completed [email or web address] [place] [address] [place] [address], [address], 12/19/2023 17:19:30 12/20/2023 XR, chest, 1 view completed [address] [place] [address], [address], 12/20/2023 16:53:15 06/25/2024 XR, shoulder, 1 view completed [address] [place] [address], [id number], 06/25/2024 16:17:55 06/25/2024 CT, chest, w/o contrast completed [address] [place] [address], [id number], 06/25/2024 16:46:47 Procedure Notes None recorded. Medical Equipment None Reported. Allergies Allergen ID Allergen Name Allergen Category Reaction Reaction Severity Criticality Documentation Date Start Date Code Code System Note Provider Name and Address Organization Details Recorded Time 24217 Tamiflu medicatio n rash Not available Not available 06/20/2022 45687 7 RxNorm Not Available [facility] 3 07:01:37 53188 Robitussi n medicatio n other Not available Not available 06/20/2022 34119 2 RxNorm facia l swell ing Not Available [facility] 3 07:01:37 Medications Name Sig Start Date Stop Date Status Note LastModified by Organization Details LastModified Time amoxicillin 500 mg capsule TAKE 1 CAPSULE BY MOUTH THREE TIMES A DAY FOR 10 DAYS 12/05 completed Not Available Not Available Not Available acetaminoph en 325 mg tablet TAKE 2 TABLETS BY MOUTH EVERY 4 HOURS NEEDED FOR MILD PAIN (1-5) OR FEVER active Not Available Not Available No t Available donepezil 5 mg tablet Take 1 tablet every day by oral route. 2024 active Not Available Not Available Not Avai lable trazodone 50 mg tablet Take 1 tablet every day by oral route at bedtime. 2021 active Not Available Not Available Not Avai lable oxybutynin chloride ER 10 mg tablet,exte nded release 24 hr TAKE ONE TABLET BY MOUTH ONCE DAILY active Not Available Not Available No t Available ofloxacin 0.3 % eye drops 12/21 completed Not Available Not Available Not Available benzonatate 200 mg capsule Take 1 capsule 3 times a day by oral route. 2024 active Not Available Not Available Not Avai lable Ditropan XL 5 mg tablet,exte nded release once daily 04/01 completed Not Available Not Available Not Available hydrocodone 5 mg-acetamin ophen 325 mg tablet TAKE 1 TABLET BY MOUTH EVERY 4-8 HOURS NEEDED FOR PAIN (SCALE SCORE 6-10) active Not Available Not Available No t Available Synthroid 100 mcg tablet Take 1 tablet every day by oral route. 2013 active Not Available Not Available Not Avai lable metoprolol succinate ER 100 mg tablet,exte nded release 24 hr TAKE 1 TABLET BY MOUTH DAILY IN THE MORNING active Not Available Not Available No t Available Zithromax Z-Mitchell 250 mg tablet TAKE 2 TABLETS (500 MG) BY ORAL ROUTE ONCE DAILY FOR 1 DAY THEN 1 TABLET (250 MG) BY ORAL ROUTE ONCE DAILY FOR 4 DAYS 2024 active Not Available Not Available Not Avai lable cyanocobala min (vit B-12) 1,000 mcg tablet Take 1 tablet every day by oral route. 2017 active Not Available Not Available Not Avai lable Klor-Con 20 mEq oral packet active Not Available Not Available Not Available aspirin 81 mg tablet,fransisca yed release Take 1 tablet every day by oral route. 12/21 completed Not Available Not Available Not Available amoxicillin 500 mg tablet Take 1 tablet every 8 hours by oral route. 04/01 completed Not Available Not Available Not Available pantoprazol e 20 mg tablet,fransisca yed release 08/23 completed Not Available Not Available Not Available levothyroxi ne 75 mcg tablet TAKE 1 TABLET BY MOUTH DAILY active Not Available Not Available No t Available ketorolac 0.5 % eye drops 08/23 completed Not Available Not Available Not Available Macrobid 100 mg capsule Take 1 capsule every 12 hours by oral route. 04/01 completed Not Available Not Available Not Available prednisolon e acetate 1 % eye drops,suspe nsion 08/23 completed Not Available Not Available Not Available trazodone 100 mg tablet One HS for sleep 05/22 completed Not Available Not Available Not Available meclizine 25 mg tablet take one tablet twice a day 2024 active Not Available Not Available Not Avai lable cephalexin 500 mg capsule Take 1 capsule every 6 hours by oral route. active Not Available Not Available No t Available simvastatin 20 mg tablet TAKE 1 TABLET BY MOUTH DAILY active Not Available Not Available No t Available cyanocobala min (vit B-12) 1,000 mcg/mL injection solution Inject 1 mL by intramusc ular route. 05/22 completed Not Available Not Available Not Available Cipro 500 mg tablet Take 1 tablet twice a day by oral route for 10 days. active Not Available Not Available No t Available Synthroid 88 mcg tablet Take 1 tablet every day by oral route. 2013 active Not Available Not Available Not Avai lable digoxin 125 mcg (0.125 mg) tablet TAKE 1 TABLET BY MOUTH EVERY DAY IN THE MORNING 08/07 completed Not Available Not Available Not Available furosemide 20 mg tablet take one tablet on Mondays, Saturday s and Fridays active Not Available Not Available No t Available metoprolol succinate ER 25 mg tablet,exte nded release 24 hr TAKE 5 TABLETS BY MOUTH EVERY DAY EVERY MORNING active Not Available Not Available No t Available lorazepam 1 mg tablet one three times a day 05/22 completed Not Available Not Available Not Available Tylenol-Cod eine #3 300 mg-30 mg tablet one every six hours as needed 07/04 completed Not Available Not Available Not Available oxybutynin chloride 5 mg tablet Take 1 tablet twice a day by oral route. active Not Available Not Available No t Available Vitamin D3 25 mcg (1,000 unit) tablet Take 1 tablet every day by oral route. 2017 active Not Available Not Available Not Avai lable Eliquis 2.5 mg tablet TAKE 1 TABLET BY MOUTH TWICE DAILY 2024 active Not Available Not Available Not Avai lable Vitals Date Recorded Body height Body mass index (BMI) Body weight Heart rate Body temperature Oxygen saturation Oxygen saturation in Arterial blood by Pulse oximetry Systolic blood pressure Diastolic blood pressure Provider Name and Address Organization Details Last Updated DateTime 4 158.75 cm 23 kg/m2 91782.8 2 g 76 /min 97 [degF] 93 % 93 % 120 mm[Hg] 80 mm[Hg] Tammie Pope [employer] [facility] [employer] 4 10:58:32 Date Recorded Body height Body mass index (BMI) Body weight Oxygen saturation Oxygen saturation in Arterial blood by Pulse oximetry Body temperature Provider Name and Address Organization Details Last Updated DateTime 4 158.75 cm 23 kg/m2 17995.8 2 g 95 % 95 % 98.1 [degF] ASHLEY Ordonez [employer] [facility] [employer] [facility] 4 11:21:55 Date Recorded Body height Body mass index (BMI) Body weight Heart rate Body temperature Oxygen saturation Oxygen saturation in Arterial blood by Pulse oximetry Systolic blood pressure Diastolic blood pressure Provider Name and Address Organization Details Last Updated DateTime 4 158.75 cm 22.1 kg/m2 88842.8 6 g 72 /min 97.5 [degF] 98 % 98 % 124 mm[Hg] 84 mm[Hg] Arlin Vicente Jacqueline [facility] [employer] [facility] 4 11:23:31 Date Recorded Body height Body weight Heart rate Body temperature Oxygen saturation Oxygen saturation in Arterial blood by Pulse oximetry Systolic blood pressure Diastolic blood pressure Provider Name and Address Organization Details Last Updated DateTime 4 158.75 cm 67851.0 5 g 83 /min 97 [degF] 96 % 96 % 120 mm[Hg] 84 mm[Hg] Arlin Vicente ASHLEY [facility] [employer] [facility] 4 10:58:05 Date Recorded Pain severity - 0-10 verbal numeric rating [Score] - Reported Provider Name and Address Organization Details Last Updated DateTime 01/15/2024 0 Junie Lee RN [facility] [employer] [facility] 01/15/2024 11:06:04 Date Recorded Body height Body mass index (BMI) Body weight Heart rate Body temperature Oxygen saturation Oxygen saturation in Arterial blood by Pulse oximetry Systolic blood pressure Diastolic blood pressure Provider Name and Address Organization Details Last Updated DateTime 4 158.75 cm 20 kg/m2 46638.7 5 g 97 /min 97 [degF] 95 % 95 % 140 mm[Hg] 90 mm[Hg] Arlin Vicente Jacqueline [facility] [employer] [facility] 4 11:36:38 Social History Question Answer Notes LastModified by Organizat ion Details LastModified Time Tobacco Smoking Status Never Smoker Not Available [email or web address] 06/20/2022 06:55:12 Do You Have An Advance Directive? Yes [email or web address] Information not available 12/05/2022 What Is Your Level Of Alcohol Consumption? None [email or web address] Information not available 01/15/2024 Are You Blind Or Do You Have Difficulty Seeing? No MIGRATION.[id number] Information not available 06/20/2022 In The 14 Days Before Symptom Onset, Have You Had Close Contact With A Laboratory-confir med COVID-19 While That Case Was Ill? No MIGRATION.17637 68476 Information not available 06/20/2022 In The 14 Days Before Symptom Onset, Have You Had Close Contact With A Person Who Is Under Investigation For COVID-19 While That Person Was Ill? No MIGRATION.31074 65103 Information not available 06/20/2022 Are You Deaf Or Do You Have Serious Difficulty Hearing? Yes [email or web address] Information not available 12/05/2022 What Type Of Diet Are You Following? REGULAR MIGRATION.52645 81477 Information not available 06/20/2022 Have There Been Any Changes To Your Family Or Social Situation? No MIGRATION.93000 91756 Information not available 06/20/2022 What Is The Fluoride Status Of Your Home? Unknown MIGRATION.05820 13972 Information not available 06/20/2022 Are There Any Guns Present In Your Home? No MIGRATION.09173 45520 Information not available 06/20/2022 Do You Use Insect Repellent Routinely? No MIGRATION.49788 97706 Information not available 06/20/2022 Where Do You Live? [place]House MIGRATION.98826 88250 Information not available 06/20/2022 Guns Present In The Home? No [email or web address] Information not available 12/05/2022 Are You Able To Care For Yourself? Yes [email or web address] Information not available 12/05/2022 Are You Blind Or Do Yo Have Difficulty Seeing? No [email or web address] Information not available 12/05/2022 Are You Deaf Or Do You Have Serious Difficulty Hearing? Yes [email or web address] Information not available 12/05/2022 Live Alone Of With Others? 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 01/15/2024 Information not available 01/15/2024 Do You Have Any Pets? No [email or web address] Information not available 12/05/2022 What Is Your Relationship Status? [email or web address] Information not available 12/05/2022 Do You Use Your Seat Belt Or Car Seat Routinely? Yes Information not available 12/05/2022 Do You Have Smoke And Carbon Monoxide Detectors In Your Home? Yes MIGRATION.33140 20233 Information not available 06/20/2022 Are You Passively Exposed To Smoke? No MIGRATION.02717 99246 Information not available 06/20/2022 Are There Any Smokers In Your House? No [email or web address] Information not available 12/05/2022 Do You Use Sunscreen Routinely? No MIGRATION.31304 00585 Information not available 06/20/2022 Have You Recently Traveled Abroad? No MIGRATION.36297 03040 Information not available 06/20/2022 Do You Have Any Dietary Restrictions? No MIGRATION.99507 19810 Information not available 06/20/2022 Do You Or Have You Ever Used Any Other Forms Of Tobacco Or Nicotine? No MIGRATION.95976 33266 Information not available 06/20/2022 Sex: Unknown Functional Status Question Answer Note LastModified by Organizat ion Details LastModified Time Do you have difficulty walking or climbing stairs? Yes recent hip surgery [email or web address] Information not available 01/15/2024 Do you have transportation difficulties? No MIGRATION.497020 8240 Information not available 06/20/2022 Are you able to walk? YESASSIST [email or web address] Information not available 01/15/2024 Do you have difficulty doing errands alone? Yes MIGRATION.243324 7487 Information not available 06/20/2022 Are you able to care for yourself? Yes MIGRATION.553203 8884 Information not available 06/20/2022 Do you have difficulty dressing or bathing? No MIGRATION.906188 9510 Information not available 06/20/2022 What is your exercise level? None MIGRATION.821793 6534 Information not available 06/20/2022 Mental Status Question Answer Note LastModified by Organizat ion Details LastModified Time Do you have difficulty concentrating, remembering or making decisions? No MIGRATION.[id number] 6 Information not available 06/20/2022 Family History Nothing Reported Notes:Mother 61 from hy pertension and CVA Father in late 20's from TB One brother living ASHD and CABG Two sisters both both hx of CVA(2) Medical History Condition Response NERVE DISEASE N BLINDNESS N RHEUMATIC FEVER N KIDNEY STONES N BLADDER PROBLEMS N MRSA N OTHER # 1 N POLIO N LUNG DISEASE/DISORDER N HISTORY OF DRUG ABUSE N RADIATION / CHEMOTHERAPY N COPD N Other # 2 N BLOOD DISEASES N EAR OR HEARING PROBLEMS N MUMPS N SHINGLES N BOWEL PROBLEMS N DEPRESSION (INCLUDING POST ) N STROKE/TIA N ULCERS N BENIGN PROSTATIC HYPERPLASIA N MEASLES N HYPOTENSION N MYOCARDIAL INFARCTION N OBESITY N GERD/NAUSEA N ANEURYSM N URINARY/BLADDER/KIDNEY PROBLEMS N CORONARY ARTERY DISEASE (CAD) N ADDICTION CONCERNS N ENDOMETRIOSIS N Impotence N USE OF BLOOD THINNERS N SKIN PROBLEMS N GASTROINTESTINAL DISORDER N PERIPHERAL VASCULAR DISEASE N MUSCLE,JOINT OR BONE PROBLEMS N GASTROINTESTINAL BLEEDING N BLOOD CLOTS N ASTHMA N CATARACTS N ERECTILE DYSFUNCTION N VARICOSITIES N GI PROBLEMS N Low Testosterone N INFERTILITY N AIDS/HIV N CHEMOTHERAPY / RADIATION N LIVER DISEASE N MALE HYPOGONADISM N HYPERTENSION N Deficiency N TOURETTE'S N ANXIETY DISORDER Y BLOOD TRANSFUSION N ANEMIA/BLOOD DISORDER N CHRONIC EAR INFECTIONS N BRONCHITIS N TUBERCULOSIS N GLAUCOMA N FOOT PROBLEM N DIVERTICULITIS N CHICKENPOX N SLEEP APNEA N INFECTIOUS DISEASE N HEART ARRHYTHMIA N PROSTATE N INSOMNIA N HIGH CHOLESTEROL / HYPERLIPIDEMIA Y HYPERTHYROIDISM N EYE PROBLEMS N EDEMA N CHRONIC PAIN SYNDROME N HYPOTHYROIDISM Y CAROTID BLOCKAGE N CONSTIPATION N BACK / NECK PROBLEMS N HAVE YOU BEEN HOSPITALIZED OR SEEN IN [facility] IN THE PAST YEAR ? N ATHEROSCLEROSIS N BREAST PROBLEMS N DIALYSIS N ECZEMA N OSTEOPOROSIS N ARTHRITIS N NO SIGNIFICANT PAST MEDICAL HISTORY N APPENDICITIS N DIABETES, TYPE N BAD TEETH N ENT N HEARTBURN / REFLUX N AUTISM SPECTRUM DISORDER (ASD) N HEPATITIS / LIVER DISEASE N GOUT N SLEEP DISORDER N ALZHEIMER'S DISEASE N Brain Problems N HERPES N DEMENTIA N HEADACHES/MIGRAINES N SEIZURES/EPILEPSY N VASCULAR DISEASE N PACEMAKER N Blood Disorder N DIZZINESS N HEART DISEASE/HEART PROBLEMS N KIDNEY DISEASE N MULTIPLE SCLEROSIS N CARDIAC ARRHYTHMIA N CANCER: SPECIFY N ATRIAL FIBRILLATION N Gall Stones N PULMONARY EMBOLISM N AUTOIMMUNE DISEASE N Gynecological HistoryNo gynecological history recorded. Obstetrics History GPAL:G 0 P 0 0 0 0 Immunizations Vaccine Type Date Status Note Provider Nam e and Address Organization Details Recorded Time Influenza, split virus, trivalent, preservative 5 completed Not Available [facility] 06/20/2022 07:01:28 Influenza, split virus, quadrivalent, preservative 2 completed Not Available [facility] 06/20/2022 07:01:28 SARS-COV-2 (COVID-19) vaccine, UNSPECIFIED 1 completed Not Available [facility] 06/20/2022 07:01:28 Influenza, split virus, quadrivalent, preservative 1 completed Not Available [facility] 06/20/2022 07:01:28 COVID-19 Non-US Vaccine, Product Unknown 1 completed Not Available [facility] 06/20/2022 07:01:28 COVID-19 Non-US Vaccine, Product Unknown 1 completed Not Available [facility] 06/20/2022 07:01:28 Influenza, split virus, trivalent, preservative 8 completed Not Available [facility] 06/20/2022 07:01:28 pneumococcal polysaccharide PPV23 9 completed Not Available [facility] 06/20/2022 07:01:29 Pneumococcal conjugate PCV 13 5 completed Not Available [facility] 06/20/2022 07:01:29 Influenza, high-dose, trivalent, PF 4 completed ASHLEY Tolbert, [employer] [facility] 04/01/2024 14:34:20 Pneumococcal conjugate PCV20, polysaccharide [id number] conjugate, adjuvant, PF 4 completed ASHLEY Tolbert, [employer] [facility] 04/01/2024 14:34:20 Past Encounters Encounter ID Performer Location Encounter Start Date Encounter Closed Date Diagnosis/Indication Diagnosis SNOMED-CT Code Diagnosis ICD10 Code Diagnosis Note [id number] [facility] [address] [place] [address] [address] 11/09/2020 00:00:00 11/09/2020 12:23:09 [id number] [facility] [address] [address] 12/21/2020 00:00:00 12/21/2020 11:57:58 [id number] [facility] [address] [address] 04/26/2021 00:00:00 04/26/2021 11:58:37 [id number] [facility] [address] [address] 08/23/2021 00:00:00 08/23/2021 11:31:25 [id number] [facility] [place] [address] [address] 12/27/2021 00:00:00 12/27/2021 11:11:12 [id number] [facility] [place] [address] [address] 01/29/2022 00:00:00 01/29/2022 11:30:54 [id number] [facility] [address] [address] 04/05/2022 00:00:00 04/05/2022 13:57:58 [id number] [facility] Internal Med Sybil aranda [address] [place] [address] y [place] [address] 04/06/2022 00:00:00 04/06/2022 15:08:13 [id number] Adarsh Tan MD [facility] Sybil aranda [address] [place] [address] [place] [address] 08/07/2022 14:52:21 08/07/2022 15:50:03 Congestive heart failure 51797713 I50.9 Hypercholesterolemia 136 69344 E78.00 Atrial fibrillation 4943 6004 I48.91 Hypothyroidism 20109472 E03.9 [id number] Adarsh Tan MD [facility] [place] [address] [address] 12/05/2022 10:36:07 12/05/2022 11:12:32 Adult health examination 956894132 Z00.00 Screening for disorder 174483009 Z13.9 Congestive heart failure 71064057 I50.9 Atrial fibrillation 4943 6004 I48.91 Hypothyroidism 00553078 E03.9 Hypercholesterolemia 136 99279 E78.00 Vitamin D deficiency 347 15912 E55.9 [id number] Adarsh Tan MD [facility] [address] [address] 03/27/2023 11:55:06 03/27/2023 12:41:40 Atrial fibrillation 47423344 I48.91 Congestive heart failure 12516294 I50.9 Hypercholesterolemia 136 97378 E78.00 Hypothyroidism 71729274 E03.9 [id number] Adarsh Tan MD [facility] [place] [address] [address] 07/24/2023 10:47:23 07/24/2023 11:57:19 Hypercholesterolemia 03918569 E78.00 Hypothyroidism 95938753 E03.9 Atrial fibrillation 4943 6004 I48.91 [id number] Adarsh Tan MD [facility] [place] [address] [address] 08/15/2023 10:52:05 08/15/2023 11:10:37 Hypokalemia 05356669 E87.6 [id number] Javier Yoder DPM [facility] Podiatry [facility] [address] [address] 11/04/2023 10:48:49 11/04/2023 16:25:29 [id number] Adarsh Tan MD [facility] [place] [address] [address] 11/27/2023 11:03:52 11/27/2023 11:44:22 Congestive heart failure 04181292 I50.9 Atrial fibrillation 4943 6004 I48.91 Hypothyroidism 22475366 E03.9 Neuropathy 663005553 G62 .9 Hypercholesterolemia 136 39578 E78.00 [id number] Adarsh Tan MD [facility] [place] [address] [address] 01/15/2024 10:39:09 01/15/2024 11:33:49 Adult health examination 266911306 Z00.00 Screening for disorder 050904189 Z13.9 Atrial fibrillation 4943 6004 I48.91 Hypercholesterolemia 136 81832 E78.00 Hypothyroidism 19250006 E03.9 [id number] Adarsh Tan MD [facility] [place] [address] [address] 04/01/2024 11:00:38 04/01/2024 12:04:29 Atrial fibrillation 46036234 I48.91 [facility] 136 44046 E78.00 [facility] 35728485 E03.9 Health Concerns Section Related Observation LastModified by Organization Detai ls LastModified Time None Recorded Concern Status LastModified by Organization Details LastModified Time None Recorded Advance Directives Directive Y: Payers Encounter Date Sequence Insurance Name Policy Number Policy [place] Covered Member ID [place]ue Member ID Guarantor Name 08/15/2023 1 [facility] (MEDICARE REPLACEMENT/A DVANTAGE - HMO) [id number] Renata Gentile Brown [id number] Eathel Brown 11/04/2023 1 [facility] (MEDICARE REPLACEMENT/A DVANTAGE - HMO) [id number] Eatlos F Brown [id number] Eathel Brown 11/27/2023 1 [facility] (MEDICARE REPLACEMENT/A DVANTAGE - HMO) [id number] Eatlos F Brown [id number] Eathel Brown 01/15/2024 1 [facility] (MEDICARE REPLACEMENT/A DVANTAGE - HMO) [id number] Renata Gentile Brown [id number] Eathel Brown 04/01/2024 1 [facility] (MEDICARE REPLACEMENT/A DVANTAGE - HMO) [id number] Eatlos F Brown [id number] Eathel Brown Notes Date Note Type Note Provider Name and Address Organization Details Recorded Time 4 text/html Patient Name: Liliane Brown (eathel)Date Of Service: July ( 08.15.2023 ): 1935 Age: 88 There has been approximately a 6.5 lb weight loss since 07/24/2023. This represents approximately a 4.8% change in weight. Weight change attributable to lifestyle changes. Vital Signs:Blood Pressure: Sitting Rt. Arm 120/80Pulse: Sitting 76 /min and RegularRespiratory Rate: 12Height 62.5 in or 1.6 mWeight 128 lb or 58.1 kgBMI 23.0Temperature: 97 F or 36.1 CPulse Oximetry: 93 % at rest on no oxygen Chief Complaint: Addressed in HPI Problems or conditions discussed in the HPI were the only ones reviewed during the encounter.Only social and family history addressed in the HPI were reviewed during this encounter. Attendant(s): DaughterConstitutional and Systemic Symptoms:none Medication Reconciliation: from medication list. AnnotationsCT scan of neck from 01/02/2022 demonstrates no significant adenopathy or any mass lesions noted in the neck. The lesion that was previously described in the left submandibular area was likely inflamed some mandibular salivary gland and does not need any further evaluation. CT scan of the brain without contrast from 08/01/2002 demonstrates an age-indeterminate infarct in the left thalamus. 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 CT a of the carotid arteries from 2022 shows old infarcts involving the left temporal lobe and bilateral caudate nuclei. 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 No significant stenosis is noted of the proximal internal carotid arteries bilaterally. MRI of the brain from 08/01/2022 shows old infarcts involving the left confucianism and bilateral caudate nuclei. Echocardiogram from 08/02/2022 normal left ventricular function with an ejection fraction calculated 50-55%. Moderate enlarged right atrium. Mild aortic valve, mitral valve and mild tricuspid valve regurgitation. Small pericardial effusion 02/03/2023: CT of the brain without contrast. 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 No fracture or other signs of any acute trauma. History of Present Illness #1. Recently in the emergency room was found to have a low potassium. Presented to the emergency room with just generalized fatigue weakness and probably some dehydration. The potassium was 3.2 mEq per L. just had a repeat done yesterday potassium is up to 4.1 back within normal limits. Will continue on potassium supplementation.: Active Medication ListEliquis 2.5 MG (TABLET - ORAL) Take One Twice A DayMetoprolol Succinate Er 100 MG (TABLET - ORAL) Once DailyTrazodone 50 MG (TABLET - ORAL) One Half HsSynthroid 0.075 MG (TABLET - ORAL) One Daily For Thyroid ReplacementMeclizine 25 MG (TABLET - ORAL) One Qid PrnFurosemide 20 MG TABLET Take One Tablet Fridaysimvastatin 40 MG TABLET One DailyVitamin D DailyVitamin B12 Daily Adverse Drug Reactions ReviewedRobitussin Facial SwellingTamiflu Rash Vaccination and Ieybhiorypkx0481-27 Fazgswnlm1549-34 Covid Wmpjvg0839-30 Covid Booster Vudosj3958-36 Tetanus Nfxmzvo7769-94 Foujehfd9374-87 Pgzbyrvbc3529-78 Prevnar 13 Surgical Fenwmgw0598-49 Xiqntauswikqugm7391-29 Vaginal Hysterectomy Preventative Hekhezc3207/24/2023 ALBUMIN 4.0 G/DL01/25/2014 COLONOSCOPY (10 YEARS) MAMMOGRAM HAIC 5.9 % Social HistoryDoes not smokeDoes not drinkDoes office work Family HistoryMother 61 from hypertension and CVAFather in late 20's from TBOne brother living ASHD and CABGTwo sisters both both hx of CVA(2) Adarsh Tan MD [address], [address], [place], [address], [employer] 08/15/2023 11:04:21 4 text/html Pt RTC for routine nail care, incurvated nails both feet. 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 Javier Yoder DPM [address], [address], [place], [address], [employer] 11/04/2023 15:13:27 4 text/html Patient Name: Liliane Brown (eathel)Date Of Service: Saturday ( 11.27.2023 ): 1935 Age: 88 There has been approximately a 5 lb weight loss since 08/15/2023. This represents approximately a 3.9% change in weight. Weight change attributable to lifestyle changes. Vital Signs:Blood Pressure: Sitting Rt. Arm 124/84Pulse: Sitting 72 /min and RegularRespiratory Rate: 14Height 62.5 in or 1.6 mWeight 123 lb or 55.8 kgBMI 22.1Temperature: 97.5 F or 36.4 CPulse Oximetry: 98 % at rest on no oxygen Chief Complaint: Addressed in HPI Problems or conditions discussed in the HPI were the only ones reviewed during the encounter.Only social and family history addressed in the HPI were reviewed during this encounter. Attendant(s): NoneConstitutional and Systemic Symptoms:none Medication Reconciliation: from medication list. AnnotationsCT scan of neck from 01/02/2022 demonstrates no significant adenopathy or any mass lesions noted in the neck. The lesion that was previously described in the left submandibular area was likely inflamed some mandibular salivary gland and does not need any further evaluation. CT scan of the brain without contrast from 08/01/2002 demonstrates an age-indeterminate infarct in the left thalamus. 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 CT a of the carotid arteries from 2022 shows old infarcts involving the left temporal lobe and bilateral caudate nuclei. 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 No significant stenosis is noted of the proximal internal carotid arteries bilaterally. MRI of the brain from 08/01/2022 shows old infarcts involving the left confucianism and bilateral caudate nuclei. Echocardiogram from 08/02/2022 normal left ventricular function with an ejection fraction calculated 50-55%. Moderate enlarged right atrium. Mild aortic valve, mitral valve and mild tricuspid valve regurgitation. Small pericardial effusion 02/03/2023: CT of the brain without contrast. 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 No fracture or other signs of any acute trauma. History of Present Illness #1. Hx of cardiac decompensation currently stable. Primary etiology of the heart failure is chronic HFrEF. There has been no change in shortness of breath, orthopnea, chest pain or exercise capacity. There has been no unexpected weight gain or additional peripheral edema. There has been no increase swelling in the legs or other signs of cardiac decompensation. Currently functioning at a NYHA Class III Marked limitation of any activity and comfortable only at rest. Heart failure stage: C: Structural heart disease with some symptoms #2. Atrial Fibrillation: Type: Persistent with recurrent episodes lasting longer than 7 days. Further classification: Non-valvular. Associated history of none. No attending hx of any shortness of breath, palpitations, syncopal or neurological symptoms. Current medications: Eliquis. Rate control: rapid ventricular response [id number] Criteria: congestive heart failure, Age > 75 and and considered moderate risk for embolic phenomenon. Anticoagulation: Eliquis #3. Hx of hypothyroidism currently stable. Heat intolerance: no Fatigue: no Weight gain: no Difficulty concentrating: no Muscle Symptoms: none Skin Texture: normal Skin Color: normal Currently taking synthroid. #4. Neuropathy: History of neuropathy involving both legs. No interval complaints of any increasing numbness, tingling, weakness or ataxia. ADL: no limitations Number(s) of falls: none since last examination. Using support device: none Medication: none.#5. Hyperlipidemia clinically stable currently taking the simvastatin doing well. Overall no interval complaints any new problems. Active Medication ListEliquis 2.5 MG (TABLET - ORAL) Take One Twice A DayMetoprolol Succinate Er 100 MG (TABLET - ORAL) Once DailyTrazodone 50 MG (TABLET - ORAL) One Half HsSynthroid 0.075 MG (TABLET - ORAL) One Daily For Thyroid ReplacementMeclizine 25 MG (TABLET - ORAL) One Qid PrnFurosemide 20 MG TABLET Take One Tablet Fridaysimvastatin 40 MG TABLET One DailyVitamin D DailyVitamin B12 Daily Adverse Drug Reactions ReviewedRobitussin Facial SwellingTamiflu Rash Vaccination and Zkaipqrkbrpd6143-64 Yuigwanho3079-64 Covid Qiuuyt4742-43 Covid Booster Daqrkr2328-71 Tetanus Eiaypdp9695-12 Axdbcxjb1105-84 Ukhdpcxus7962-43 Prevnar 13 Gc Surgical Tbjcdus7890-98 Yubnryzdvrasjte0639-58 Vaginal Hysterectomy Preventative Testing( ) 07/24/2023 Albumin 4.0 G/DL( ) 01/25/2014 Colonoscopy (10 Years) 01/26/2024(X) 12/10/2013 Mammogram 12/11/2015( ) 09/20/2004 HAIC 5.9 % Social HistoryDoes not smokeDoes not drinkDoes office work Family HistoryMother 61 from hypertension and CVAFather in late 20's from TBOne brother living ASHD and CABGTwo sisters both both hx of CVA(2) Active Medication ListEliquis 2.5 MG (TABLET - ORAL) Take One Twice A DayMetoprolol Succinate Er 100 MG (TABLET - ORAL) Once DailyTrazodone 50 MG (TABLET - ORAL) One Half HsSynthroid 0.075 MG (TABLET - ORAL) One Daily For Thyroid ReplacementMeclizine 25 MG (TABLET - ORAL) One Qid PrnFurosemide 20 MG TABLET Take One Tablet Fridaysimvastatin 40 MG TABLET One DailyVitamin D DailyVitamin B12 Daily Adverse Drug Reactions ReviewedRobitussin Facial SwellingTamiflu Rash Vaccination and Xwkzogalqkgj9934-16 Aoyrrhnnw9677-56 Covid Sxmfbu6469-50 Covid Booster Itsjbv7644-07 Tetanus Exjrsfs7550-63 Nlszhjvo6513-46 Dzekjagbk0155-87 Prevnar 13 Gc Surgical Ugajlhe4274-52 Pmifaivligfggpu0344-53 Vaginal Hysterectomy Preventative Testing( ) 07/24/2023 Albumin 4.0 G/DL( ) 01/25/2014 Colonoscopy (10 Years) 01/26/2024(X) 12/10/2013 Mammogram 12/11/2015( ) 09/20/2004 HAIC 5.9 % Social HistoryDoes not smokeDoes not drinkDoes office work Family HistoryMother 61 from hypertension and CVAFather in late 20's from TBOne brother living ASHD and CABGTwo sisters both both hx of CVA(2) TEST RESULT RANGE UNITSBASIC METABOLIC PANEL Date: 08/12/2023SODIUM 140 137-145 MMOL/LPOTASSIUM 4.1 3.5-5.1 MMOL/LGLUCOSE 91 70-99 MG/DLBUN 13 8-19 MG/DLCREATININE 0.90 0.66-1.25 MG/DLGFR 59CBC/COMPLETE BLD COUNT W/DIFF Date: 07/24/2023WHITE BLOOD CELLS 6.6 4.2-10.8 X10'3/ULHEMOGLOBIN 12.3 12.0-15.6 G/DLHEMATOCRIT 38.5 35.7-45.7 %PLATELETS 108 150-400 X10'3/ULLIPID PANEL Date: 07/24/2023HOLESTEROL 106 140-199 MG/DLTRIGLYCERIDES 124 0-150 MG/DLHDL CHOLESTEROL 38 40- MG/DLLDL CHOLESTEROL, CALCULATED 43 0-130 MG/DL Adarsh Tan MD [address] [facility], [place], [address], [place] [facility] [employer] 11/27/2023 11:42:21 4 text/html Patient Name: Liliane pavon) AvilanettDate Of Service: Saturday ( 01.15.2024 ): 1935 Age: 88 There has been approximately a 2 lb weight gain since 11/27/2023. This represents approximately a 1.6% change in weight. Weight change attributable to lifestyle changes. Vital Signs:Blood Pressure: Sitting Rt. Arm 120/84Pulse: Sitting 83 /min and IrregularRespiratory Rate: 14Height 62.5 in or 1.6 mWeight 125 lb or 56.7 kgBMI 22.5Temperature: 97 F or 36.1 CPulse Oximetry: 96 % at rest on no oxygen Chief Complaint: Addressed in HPI Problems or conditions discussed in the HPI were the only ones reviewed during the encounter.Only social and family history addressed in the HPI were reviewed during this encounter. A significant, separate E/M service was performed to evaluate the current and new problems. Attendant(s): DaughterConstitutional and Systemic Symptoms:none Medication Reconciliation: from medication list. AnnotationsCT scan of the brain without contrast from 08/01/2002 demonstrates an age-indeterminate infarct in the left thalamus. 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 CT a of the carotid arteries from 2022 shows old infarcts involving the left temporal lobe and bilateral caudate nuclei. 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 No significant stenosis is noted of the proximal internal carotid arteries bilaterally. MRI of the brain from 08/01/2022 shows old infarcts involving the left confucianism and bilateral caudate nuclei. Echocardiogram from 08/02/2022 normal left ventricular function with an ejection fraction calculated 50-55%. Moderate enlarged right atrium. Mild aortic valve, mitral valve and mild tricuspid valve regurgitation. Small pericardial effusion 02/03/2023: CT of the brain without contrast. 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 No fracture or other signs of any acute trauma. History of Present Illness Reviewed the findings of the preventative health visit. Addressed all areas with the patient, patient's family or caregivers. Preventative examinations and testing immunizations - vaccinations, colonic neoplasm screening, mammograms and DEXA Scan all reviewed and ordered where patient was amenable to the recommendations. Cognitive function demonstrated MCI. Depression addressed and where necessary medications were adjusted or instituted. End of life and living will briefly discussed with patient and where these can be filled out and legally executed. Other blood and imaging studies were ordered if considered necessary. Other recommendations may be found in the encounter note. #1. Atrial Fibrillation: Type: Persistent with recurrent episodes lasting longer than 7 days. Further classification: Non-valvular. Associated history of none. No attending hx of any shortness of breath, palpitations, syncopal or neurological symptoms. Current medications: Metoprolol Succinate Er. Rate control: controlled ventricular response [id number] Criteria: Age > 75 and and considered moderate risk for embolic phenomenon. Anticoagulation: Eliquis #2. Type II Hypercholesterolaemia: Currently taking medication and tolerating well. No interval complaints of any muscle pain or arthralgia. No significant liver changes with medications. Last lipid panel: fair control. Therapy reviewed regarding treatment of cholesterol management and include diet and Simvastatin. #3. Hx of hypothyroidism currently stable. Heat intolerance: no Fatigue: no Weight gain: no Difficulty concentrating: no Muscle Symptoms: none Skin Texture: normal Skin Color: normal Currently taking synthroid. Active Medication ListEliquis 2.5 MG (TABLET - ORAL) Take One Twice A DayMetoprolol Succinate Er 100 MG TABLET, FILM COATED, EXTENDED RELEASE Once DailyTrazodone 50 MG (TABLET - ORAL) One Half HsMetoprolol Succinate Er 25 MG TABLET, FILM COATED, EXTENDED RELEASE Take With 100mg TabletOxybutynin 5 MG TABLET One Every NightHydrocodone/Acetaminop hen 5/325 Two Tabs DailySynthroid 0.075 MG (TABLET - ORAL) One Daily For Thyroid ReplacementMeclizine 25 MG (TABLET - ORAL) One Bid PrnFurosemide 20 MG TABLET Take One Tablet PrnSimvastatin 20 MG TABLET One DailyVitamin D DailyVitamin B12 Daily Adverse Drug Reactions ReviewedRobitussin Facial SwellingTamiflu Rash Vaccination and Regpwdmrtgsq9875-00 Zbulimwqe6620-09 Covid Gztluv2192-43 Covid Booster Tzskbh3071-68 Tetanus Tfopvbi1345-05 Pzctingz2894-77 Cekcvyycf7352-53 Prevnar 13 Gc Surgical Hsxasls6195-20 Lt. Femur Open Reduction Gfdzvdaq8030-28 Yezjwaqndiqcawt6097-94 Vaginal Hysterectomy Preventative Testing( ) 11/27/2023 Albumin 3.9 G/DL( ) 01/25/2014 Colonoscopy (10 Years) 01/26/2024( ) 12/10/2013 Mammogram 12/11/2015( ) 09/20/2004 HAIC 5.9 % Social HistoryDoes not smokeDoes not drinkDoes office work Family HistoryMother 61 from hypertension and CVAFather in late 20's from TBOne brother living ASHD and CABGTwo sisters both both hx of CVA(2) Adarsh Tan MD [address] [facility], [address], [place], [address], [place] [facility] [employer] 01/15/2024 11:30:45 4 text/html Patient Name: Liliane Gramajo (eathel)nettDate Of Service: Saturday ( 04.01.2024 ): 1935 Age: 88 There has been approximately a 14 lb weight loss since 01/15/2024. This represents approximately a 11.2% change in weight. Weight change attributable to lifestyle changes. Vital Signs:Blood Pressure: Sitting Rt. Arm 140/80Pulse: Sitting 97 /min and RegularRespiratory Rate: 16Height 62.5 in or 1.6 mWeight 111.0 lb or 50.3 kgBMI 20.0Temperature: 97 F or 36.1 CPulse Oximetry: 95 % at rest on no oxygen Chief Complaint: Addressed in HPI Problems or conditions discussed in the HPI were the only ones reviewed during the encounter.Only social and family history addressed in the HPI were reviewed during this encounter. Attendant(s): NoneConstitutional and Systemic Symptoms:none Medication Reconciliation: from medication list. AnnotationsCT scan of the brain without contrast from 08/01/2002 demonstrates an age-indeterminate infarct in the left thalamus. 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 CT a of the carotid arteries from 2022 shows old infarcts involving the left temporal lobe and bilateral caudate nuclei. 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 No significant stenosis is noted of the proximal internal carotid arteries bilaterally. MRI of the brain from 08/01/2022 shows old infarcts involving the left confucianism and bilateral caudate nuclei. Echocardiogram from 08/02/2022 normal left ventricular function with an ejection fraction calculated 50-55%. Moderate enlarged right atrium. Mild aortic valve, mitral valve and mild tricuspid valve regurgitation. Small pericardial effusion 02/03/2023: CT of the brain without contrast. 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 No fracture or other signs of any acute trauma. History of Present Illness #1. Atrial Fibrillation: Type: Paroxysmal with recurrent episodes lasting less than 7 days. Further classification: Non-valvular. Associated history of none. No attending hx of any shortness of breath, palpitations, syncopal or neurological symptoms. Current medications: no specific medication. Rate control: controlled ventricular response [id number] Criteria: hypertension, Age > 75 and and considered moderate risk for embolic phenomenon. Anticoagulation: Eliquis #2. Type II Hypercholesterolaemia: Currently taking medication and tolerating well. No interval complaints of any muscle pain or arthralgia. No significant liver changes with medications. Last lipid panel: fair control. Therapy reviewed regarding treatment of cholesterol management and include diet and Simvastatin. #3. Hx of hypothyroidism currently stable. Heat intolerance: no Fatigue: no Weight gain: no Difficulty concentrating: no Muscle Symptoms: none Skin Texture: normal Skin Color: normal Currently taking synthroid. Active Medication ListEliquis 2.5 MG (TABLET - ORAL) Take One Twice A DayMetoprolol Succinate Er 100 MG TABLET, FILM COATED, EXTENDED RELEASE Once DailyTrazodone 50 MG (TABLET - ORAL) One Half HsMetoprolol Succinate Er 25 MG TABLET, FILM COATED, EXTENDED RELEASE Take With 100mg TabletOxybutynin 5 MG TABLET One Every NightHydrocodone/Acetaminop hen 5/325 Two Tabs DailySynthroid 0.075 MG (TABLET - ORAL) One Daily For Thyroid ReplacementMeclizine 25 MG (TABLET - ORAL) One Bid PrnFurosemide 20 MG TABLET Take One Tablet PrnSimvastatin 20 MG TABLET One DailyVitamin D DailyVitamin B12 Daily Adverse Drug Reactions ReviewedRobitussin Facial SwellingTamiflu Rash Vaccination and Immunization( ) 2024-03 INFLUENZA( ) 2014- PREVNAR 13 GC( ) 2018-10 PNEUMOVAX( ) 2018-10 SHINGRIX( ) 2018-10 TETANUS BOOSTER( ) 2024-03 PREVNAR 20( ) 2021-02 COVID PFIZER(X) 2021-02 COVID BOOSTER PFIZER Surgical Whutusf2164-24 Lt. Femur Open Reduction Kyzhsgzj0116-41 Gxhynzakrkcklik4368-52 Vaginal Hysterectomy Preventative Testing( ) 11/27/2023 Albumin 3.9 G/DL( ) 01/25/2014 Colonoscopy (10 Years) 01/26/2024( ) 12/10/2013 Mammogram( ) 09/20/2004 HAIC 5.9 % Social HistoryDoes not smokeDoes not drinkDoes office work Family HistoryMother 61 from hypertension and CVAFather in late s from TBOne brother living ASHD and CABGTwo sisters both both hx of CVA(2) TEST RESULT RANGE UNITSCBC/COMPLETE BLD COUNT W/DIFF Date: 11/27/2023WHITE BLOOD CELLS 4.2 4.2-10.8 X10'3/ULHEMOGLOBIN 12.7 12.0-15.6 G/DLHEMATOCRIT 39.8 35.7-45.7 %PLATELETS 109 150-400 X10'3/ULCOMPREHENSIVE METABOLIC PANEL Date: 11/27/2023SODIUM 138 137-145 MMOL/LPOTASSIUM 4.1 3.5-5.1 MMOL/LGLUCOSE 102 70-99 MG/DLBUN 20 8-19 MG/DLCREATININE 0.94 0.66-1.25 MG/DLGFR 56ALKALINE PHOSPHATASE 89 38-126 U/LALANINE AMINOTRANSFERASE 12 0-35 U/LASPARTATE AMINOTRANSFERASE 24 15-37 U/LBILIRUBIN, TOTAL 1.60 0.20-1.30 MG/DLLIPID PANEL Date: 11/27/2023HOLESTEROL 112 140-199 MG/DLTRIGLYCERIDES 139 0-150 MG/DLHDL CHOLESTEROL 36 40- MG/DLLDL CHOLESTEROL, CALCULATED 48 0-130 MG/DLT4 FREE Date: 11/27/2023FREE T4 1.74 0.78-2.19 NG/DLTSH Date: 11/27/2023THYROID-STIMULATI NG HORMONE 0.061 0.465-4.680 UIU/MLVITAMIN B12 (COBALAMIN) Date: 12/02/2023VB12 >1000 239-931 PG/ML Adarsh Tan MD [address] [facility], [address], [place], [address], [place] [facility] 04/01/2024 11:59:12 OBGyn Episode No OBEpisode recorded.
--- OUTSIDE RECORDS SUMMARY | 2024-06-25 16:46 | XMS_ITS | Clinical Summary ---
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 Gender Identity Not on file Sexual Orientation Not on file Plan of Treatment Upcoming Encounters Date Type Department Care Team (Late st Contact Info) Description 07/01/2024 3:00 PM CDT Office Visit [facility] Oncology and Hematology - [place] [address] [facility] [address] [address] Antwan Irvin MD [address] [facility] [address] [place] [address] Health Maintenance Due Date Last Done Comments DTAP/TDAP/TD VACCINES (1 - Tdap) 1954 PNEUMOCOCCAL VACCINE 50+ YEARS (1 of 1 - PCV) 06/12/18 86 ZOSTER VACCINE (1 of 2) 1985 OSTEOPOROSIS SCREENING 2000 RSV VACCINE (60+ or ) (1 - 1-dose 75+ series) 2010 INFLUENZA VACCINE (#1) 2023 Insurance [facility] [id number]
--- OUTSIDE RECORDS SUMMARY | 2024-06-25 16:46 | XMS_ITS | Clinical Summary ---
Author Organization [facility] [address] Address [address] [place] [address] Care Team Providers Care Armor Senior Sergeant Name Role Phone Adarsh Tan MD Primary [...] 1 tablet (75 mcg total) by mouth early childhood special educator before breakfast Active metoprolol XL (TOPROL-XL) 100 [...] Department Care Team Description 05/28/2024 11:[address]ER Office Visit [facility] Cardiology [address] [address] [address] [place] [id number] Homar Greenwood MD Permanent atrial fibrillation (HCC) [...] Comments Blood Pressure 130/70 05/28/2024 11:[address] WORKER Pulse 72 05/28/2024 11:[address] WORKER Temperature - - Respiratory Rate - - Oxygen Saturation 96% 05/28/2024 11:[address] WORKER Inhaled Oxygen Concentration - - Weight 52.7 kg (116 lb 1.6 oz) 05/28/2024 11:[address] WORKER Height 165.1 cm (5' 5 ) 05/28/2024 11:[address] WORKER Body Mass Index 19.32 05/28/2024 11:[address] WORKER Plan of Treatment Health Maintenance Due Date [...] Pneumococcal vaccine 65+ Completed 11/19/2018, 12/2014 Insurance [facility] Address: [address] [address] [employer] [facility] Address: [facility] [address] [place] [address] Care Teams Armor Senior Sergeant Relationship Specialty Start Date End Date Adarsh Tan MD [address] [facility] [address] [place] [address] PCP - General Internal Medicine 10/12/20
== END 2024-06-25 17:45 | disposition home or self-care (01) ==
PROVIDERS: Emergency Provider Emergency Medicine; PCP Internal Medicine
DX: S22.31XA Fracture of one rib, right side, initial encounter for closed fracture (principal); S32.041A Stable burst fracture of fourth lumbar vertebra, initial encounter for closed fracture; I71.21 Aneurysm of the ascending aorta, without rupture; I48.91 Unspecified atrial fibrillation; I50.9 Heart failure, unspecified; I11.0 Hypertensive heart disease with heart failure; I42.9 Cardiomyopathy, unspecified; E78.5 Hyperlipidemia, unspecified; E03.9 Hypothyroidism, unspecified; Z98.42 Cataract extraction status, left eye; Z98.41 Cataract extraction status, right eye; Z90.710 Acquired absence of both cervix and uterus; Z79.01 Long term (current) use of anticoagulants; Z79.899 Other long term (current) drug therapy; Z77.22 Contact with and (suspected) exposure to environmental tobacco smoke (acute) (chronic); J43.9 Emphysema, unspecified; I51.7 Cardiomegaly; W22.8XXA Striking against or struck by other objects, initial encounter
CPT/HCPCS: 71250; 73030; 99284

== ENCOUNTER 2024-07-01 15:35 | Outpatient (CLI) | payer MEDICARE, SELFPAY ==
[2024-07-01 15:54] LABS: Basophils Percent Auto 0.6 % (0.2-1.2); Eosinophils Absolute Auto 0.2 K/mm3 (0-0.3); Eosinophils Percent Auto 3.3 % (0-4.4); Hematocrit 36.2 % (37.0-47.0); Immature Granulocyte Absolute 0.03 K/mm3 (0.00-0.031); Immature Granulocyte Percent A 0.6 % (0-0.5); Lymphocytes Absolute Auto 1.06 K/mm3 (0.9-3.2); Lymphocytes Percent Auto 20.9 % (18.3-44.2); Mean Corpuscular HGB Conc 30.4 g/dl (32-36); Mean Corpuscular Hemoglobin 30.3 pg (26-34); Mean Corpuscular Volume 99.7 fl (80-100); Mean Platelet Volume 12.4 fl (7.4-10.4); Monocytes Absolute Auto 0.6 K/mm3 (0.1-0.6); Neutrophils Absolute Auto 3.2 K/mm3 (1.3-6.7); Neutrophils Percent Auto 63.6 % (45.5-73.1); Platelet Count Result 108 k/mm3 (150-375); Red Blood Count 3.63 M/mm3 (4.2-5.4); White Blood Count 5.1 K/mm3 (4.5-10.0)
[2024-07-01 16:37] LABS: Iron 76 ug/dL (37-170)
[2024-07-01 16:39] LABS: Alanine Aminotransferase 20 U/L (6-35); Albumin Level 3.9 g/dL (3.5-5.1); Alkaline Phosphatase 95 U/L (38-126); Anion Gap 7 mmol/L (4-12); Aspartate Amino Transferase 29 U/L (14-36); Bilirubin,Total 1.4 mg/dL (0.2-1.3); Blood Urea Nitrogen 26 mg/dL (7-17); Calcium 8.8 mg/dL (8.4-10.2); Carbon Dioxide 25 mmol/L (22-30); Chloride 108 mmol/L (98-107); Estimated Glomerular Filt Rate 44; Glucose 91 mg/dL (65-110); Potassium 4.4 mmol/L (3.4-5.0); Sodium 140 mmol/L (137-145)
[2024-07-01 16:48] LABS: Percent Iron Saturation 21 % (20-50)
--- OUTSIDE RECORDS SUMMARY | 2024-07-01 17:30 | XMS_ITS | Data Portability ---
Author Organization [place] [facility], Main Office Address [address] [place] [address] Assessment No assessment recorded. Plan of Treatment Reminders Order Date Submit Date Provider Last Modified By Organization Details Last Modified Time Details Appointments None recorded . Lab lipid panel, serum 024 04/01/20 24 [facility], [address] [place], [address], 4 19:58:48 CMP, serum or plasma 024 04/01/20 24 [facility], [address] [place], [address], 4 19:58:50 TSH, serum or plasma 024 04/01/20 24 [facility], [address] [place], [address], 4 19:58:54 T4, free, serum 024 04/01/20 24 [facility], [address] [place], [address], 4 19:58:53 CBC w/ auto diff 024 04/01/20 24 [facility], [address] [place], [address], 4 19:58:51 lipid panel, serum 024 11/27/19 24 [facility], [address] [place], [address], 4 16:32:30 CMP, serum or plasma 024 11/27/19 24 [facility], [address] [place], [address], 4 16:32:25 T4, free, serum 024 11/27/19 24 [facility], [address] [place], [address], 4 16:31:03 TSH, serum or plasma 024 11/27/19 24 [facility], [address] [place], [address], 4 16:45:53 CBC w/ auto diff 024 11/27/19 24 [facility], [address] [place], [address], 4 13:54:53 BMP, serum or plasma 024 11/27/19 24 [email or web address], [address] [place], [address], 4 17:15:58 Referral None recorded . Procedures None recorded . Surgeries None recorded . Imaging None recorded . Medication Orders None recorded . Patient TargetsNo targets recorded. Patient Instructions Encounter Date Encounter Id Patient Instructions Last Modified By Organization Details Last Modified Time 08/15/2023 [id number] Follow-up from emergency room for hypokalemia. The hypokalemia has been corrected up to 4.1 now. Will continue on current Rx follow at her regularly scheduled appointment in November. Keep Appointment: Sat 10:20 AM Vick Portions of the record may have been created with voice recognition software. Occasional wrong-word or akkyr-t-ewrt substitutions may have occurred due to the inherent limitations of voice recognition software. Read the chart carefully and recognize, using context, where substitutions have occurred. Not available 08/15/2023 11:04:10 11/27/2023 [id number] Follow-up for history of congestive heart failure, [...] with voice recognition software. Occasional wrong-word or rojgr-e-crlz substitutions may have occurred due to the inherent limitations of voice recognition software. Read the chart carefully and recognize, using context, where substitutions have occurred. [email or web address] Not available 11/27/2023 11:41:50 01/15/2024 [id number] dementia rating scale-2* Not available 01/15/2024 11:30:41 alcohol misuse* Not available 01/15/2024 11:30:41 depression screening* [email or web address] Not available 01/15/2024 11:30:41 Timed Up and Go test (TUG)* [email or web address] Not available 01/15/2024 11:30:41 multi-dimensiona l health assessment questionnaire* [email or web address] Not available 01/15/2024 11:30:40 Personalized Hea lth [...] I have no recommendations Depression Screening: Negative [email or web address] Not available 01/15/2024 11:12:41 Medicare wellnes s [...] a day Keep Appointment: Sat 10:30 AM [place] Portions of the record may have been created with voice recognition software. Occasional wrong-word or svkyn-b-xmvr substitutions may have occurred due to the inherent limitations of voice recognition software. Read the chart carefully and recognize, using context, where substitutions have occurred. Not available 01/15/2024 11:30:23 04/01/2024 [id number] . Follow-up paroxysmal atrial fibrillation, hyperlipidemia, hypothyroidism [...] with voice recognition software. Occasional wrong-word or urhap-z-boav substitutions may have occurred due to the inherent limitations of voice recognition software. Read the chart carefully and recognize, using context, where substitutions have occurred. Created: Adarsh Tan M.D. 04.01.2024 10:58 AM [email or web address] Not available 04/01/2024 11:58:56 Reason for Referral None Reported. Results Created Date Observation Date Name Description Value Unit Range Abnormal Flag Note LastModifiedBy Organization Detail LastModifiedTime 07/24/19 24 07/24/2023 CBC/C OMPLE TE BLD COUNT W/DIF F white blood cells 6.6 x10'3 /uL 4.2-10 .8 Not Available [facility] (Lab) [address] [place], [address], 07/24/2023 14:19:50 07/24/19 24 07/24/2023 CBC/C OMPLE TE BLD COUNT W/DIF F red blood cells 4.10 x10'6 /uL 3.80-5 .20 Not Available [facility] (Lab) [address] [place], [address], 07/24/2023 14:19:50 07/24/19 24 07/24/2023 CBC/C OMPLE TE BLD COUNT W/DIF F hemoglobin 12.3 g/dL 12.0-1 5.6 Not Available [facility] (Lab) [address] [place], [address], 07/24/2023 14:19:50 07/24/19 24 07/24/2023 CBC/C OMPLE TE BLD COUNT W/DIF F hematocrit 38.5 % 35.7-4 5.7 Not Available [facility] (Lab) [address] [place], [address], 07/24/2023 14:19:50 07/24/19 24 07/24/2023 CBC/C OMPLE TE BLD COUNT W/DIF F mean red cell volume 93.9 fL 82.0-9 9.0 Not Available [facility] (Lab) [address] [place], [address], 07/24/2023 14:19:50 07/24/19 24 07/24/2023 CBC/C OMPLE TE BLD COUNT W/DIF F mean red cell hemoglobin 30.0 pg 27.0-3 3.0 Not Available [facility] (Lab) [address] [place], [address], 07/24/2023 14:19:50 07/24/19 24 07/24/2023 CBC/C OMPLE TE BLD COUNT W/DIF F mean RBC HGB concentratio n 31.9 g/dL 31.0-3 6.0 Not Available [facility] (Lab) [address] [place], [address], 07/24/2023 14:19:50 07/24/19 24 07/24/2023 CBC/C OMPLE TE BLD COUNT W/DIF F red cell distribution width 13.5 % 11.8-1 5.5 Not Available [facility] (Lab) [address] [place], [address], 07/24/2023 14:19:50 07/24/19 24 07/24/2023 CBC/C OMPLE TE BLD COUNT W/DIF F platelets 108 x10'3 /uL 150-40 0 low Not Available [facility] (Lab) [address] [place], [address], 07/24/2023 14:19:50 07/24/19 24 07/24/2023 CBC/C OMPLE TE BLD COUNT W/DIF F neutrophils 69.6 % 39.0-7 2.0 Not Available [facility] (Lab) [address] [place], [address], 07/24/2023 14:19:50 07/24/19 24 07/24/2023 CBC/C OMPLE TE BLD COUNT W/DIF F lymphocytes 17.1 % 16.0-4 7.0 Not Available [facility] (Lab) [address] [place], [address], 07/24/2023 14:19:50 07/24/19 24 07/24/2023 CBC/C OMPLE TE BLD COUNT W/DIF F monocytes 10.0 % 5.0-12 .0 Not Available [facility] (Lab) [address] [place], [address], 07/24/2023 14:19:50 07/24/19 24 07/24/2023 CBC/C OMPLE TE BLD COUNT W/DIF F eosinophils 2.3 % 1.0-7. 0 Not Available [facility] (Lab) [address] [place], [address], 07/24/2023 14:19:50 07/24/19 24 07/24/2023 CBC/C OMPLE TE BLD COUNT W/DIF F basophils 0.5 % 0.0-2. 0 Not Available [facility] (Lab) [address] [place], [address], 07/24/2023 14:19:50 07/24/19 24 07/24/2023 CBC/C OMPLE TE BLD COUNT W/DIF F immature granulocytes 0.5 % 0.00-0 .50 Not Available [facility] (Lab) [address] [place], [address], 07/24/2023 14:19:50 07/24/19 24 07/24/2023 CBC/C OMPLE TE BLD COUNT W/DIF F neutrophils, absolute count 4.61 x10'3 /uL 1.5-8. 0 Not Available [facility] (Lab) [address] [place], [address], 07/24/2023 14:19:50 07/24/19 24 07/24/2023 CBC/C OMPLE TE BLD COUNT W/DIF F lymphocytes, absolute count 1.13 x10'3 /uL 1.07-3 .43 Not Available [facility] (Lab) [address] [place], [address], 07/24/2023 14:19:50 07/24/19 24 07/24/2023 CBC/C OMPLE TE BLD COUNT W/DIF F monocytes, absolute count 0.66 x10'3 /uL 0.29-0 .99 Not Available [facility] (Lab) [address] [place], [address], 07/24/2023 14:19:50 07/24/19 24 07/24/2023 CBC/C OMPLE TE BLD COUNT W/DIF F eosinophils, absolute count 0.15 x10'3 /uL 0.02-0 .53 Not Available [facility] (Lab) [address] [place], [address], 07/24/2023 14:19:50 07/24/19 24 07/24/2023 CBC/C OMPLE TE BLD COUNT W/DIF F basophils, absolute count 0.03 x10'3 /uL 0.01-0 .08 Not Available [facility] (Lab) [address] [place], [address], 07/24/2023 14:19:50 07/24/19 24 07/24/2023 CBC/C OMPLE TE BLD COUNT W/DIF F immature granulocytes ,absolute 0.03 x10'3 /uL 0.00-0 .05 Not Available [facility] (Lab) [address] [place], [address], 07/24/2023 14:19:50 07/24/19 24 07/24/2023 CBC/C OMPLE TE BLD COUNT W/DIF F nucleated red blood cells 0.0 % -0 Not Available [facility] (Lab) [address] [place], [address], 07/24/2023 14:19:50 07/24/19 24 07/24/2023 CBC/C OMPLE TE BLD COUNT W/DIF F NRBC# 0.00 x10'3 /uL Not Available [facility] (Lab) [address] [place], [address], 07/24/2023 14:19:50 07/24/19 24 07/24/2023 TSH thyroid-stim ulating hormone 0.124 uIU/m L 0.465- 4.680 low Not Available [facility] (Lab) [address] [place], [address], 07/24/2023 17:56:05 07/24/19 24 07/24/2023 T4 FREE free T4 1.87 NG/dL 0.78-2 .19 Not Available [facility] (Lab) [address] [place], [address], 07/24/2023 17:56:25 07/24/19 24 07/24/2023 LIPID PANEL cholesterol 106 mg/dL 140-19 9 low NIH BECKI NSUS RECOM MENDA TION FOR MADELEINE STERO L: ADULT CHILD LOW RISK: <200 <170 BORDE RLINE : <200- 239 ----- HIGH RISK: >240 >200 Not Available [facility] (Lab) [address] [place], [address], 07/24/2023 18:02:47 07/24/19 24 07/24/2023 LIPID PANEL triglyceride s 124 mg/dL 0-150 NIH BECKI NSUS REPOR T RECOM MENDA TION FOR TRIGL YCERI HARLEY: ADULT CHILD LOW RISK: <150 ----- BODER LINE: 150-1 99 ----- HIGH RISK: >200 ----- Not Available [facility] (Lab) [address] [place], [address], 07/24/2023 18:02:47 07/24/1907/24/2023 LIPID PANEL HDL cholesterol 38 mg/dL 40- low Not Available [facility] (Lab) [address] [place], [address], 07/24/2023 18:02:47 07/24/19 24 07/24/2023 LIPID PANEL [...] NOT BE REPOR YUSUF. Not Available [facility] (Lab) [address] [place], [address], 07/24/2023 18:02:47 07/24/19 24 07/24/2023 COMPR EHENS ITALO METAB OLIC PANEL sodium 140 mmol/ L 137-14 5 Not Available [facility] (Lab) [address] [place], [address], 07/24/2023 18:02:52 07/24/19 24 07/24/2023 COMPR EHENS ITALO METAB OLIC PANEL potassium 3.6 mmol/ L 3.5-5. 1 Not Available [facility] (Lab) [address] [place], [address], 07/24/2023 18:02:52 07/24/19 24 07/24/2023 COMPR EHENS ITALO METAB OLIC PANEL chloride 108 mmol/ L 98-107 high Not Available [facility] (Lab) [address] [place], [address], 07/24/2023 18:02:52 07/24/19 24 07/24/2023 COMPR EHENS ITALO METAB OLIC PANEL carbon dioxide 28 mmol/ L 22-30 Not Available [facility] (Lab) [address] [place], [address], 07/24/2023 18:02:52 07/24/19 24 07/24/2023 COMPR EHENS ITALO METAB OLIC PANEL anion gap 7.6 mmol/ L 14-22 low Not Available [facility] (Lab) [address] [place], [address], 07/24/2023 18:02:52 07/24/19 24 07/24/2023 COMPR EHENS ITALO METAB OLIC PANEL glucose 101 mg/dL 70-99 high Not Available [facility] (Lab) [address] [place], [address], 07/24/2023 18:02:52 07/24/19 24 07/24/2023 COMPR EHENS ITALO METAB OLIC PANEL BUN 11 mg/dL 8-19 Not Available [facility] (Lab) [address] [place], [address], 07/24/2023 18:02:52 07/24/19 24 07/24/2023 COMPR EHENS ITALO METAB OLIC PANEL creatinine 0.80 mg/dL 0.66-1 .25 Not Available [facility] (Lab) [address] [place], [address], 07/24/2023 18:02:52 07/24/19 24 07/24/2023 COMPR EHENS ITALO METAB OLIC PANEL GFR >60 Refer ence Range : [place] GFR Healt hy Adult : >60 [...] calcu lator is avail able on the [facility] websi te: [email or web address] :[email or web address] ofess ional s/kdo qi/gf r_cal culat or Not Available [facility] (Lab) [address] [place], [address], 07/24/2023 18:02:52 07/24/19 24 07/24/2023 COMPR EHENS ITALO METAB OLIC PANEL alkaline phosphatase 84 U/L 38-126 Not Available [facility] (Lab) [address] [place], [address], 07/24/2023 18:02:52 07/24/19 24 07/24/2023 COMPR EHENS ITALO METAB OLIC PANEL alanine aminotransfe rase 15 U/L 0-35 Not Available [facility] (Lab) [address] [place], [address], 07/24/2023 18:02:52 07/24/19 24 07/24/2023 COMPR EHENS ITALO METAB OLIC PANEL aspartate aminotransfe rase 24 U/L 15-37 Not Available [facility] (Lab) [address] [place], [address], 07/24/2023 18:02:52 07/24/19 24 07/24/2023 COMPR EHENS ITALO METAB OLIC PANEL bilirubin, total 1.40 mg/dL 0.20-1 .30 high Not Available [facility] (Lab) [address] [place], [address], 07/24/2023 18:02:52 07/24/19 24 07/24/2023 COMPR EHENS ITALO METAB OLIC PANEL calcium 8.8 mg/dL 8.4-10 .2 Not Available [facility] (Lab) [address] [place], [address], 07/24/2023 18:02:52 07/24/19 24 07/24/2023 COMPR EHENS ITALO METAB OLIC PANEL total protein 5.9 g/dL 6.3-8. 2 low Not Available [facility] (Lab) [address] [place], [address], 07/24/2023 18:02:52 07/24/19 24 07/24/2023 COMPR EHENS ITALO METAB OLIC PANEL albumin 4.0 g/dL 3.0-4. 4 Not Available [facility] (Lab) [address] [place], [address], 07/24/2023 18:02:52 07/24/19 24 07/24/2023 COMPR EHENS ITALO METAB OLIC PANEL globulin 1.9 g/dL 2.6-4. 2 low Not Available [facility] (Lab) [address] [place], [address], 07/24/2023 18:02:52 07/24/19 24 07/24/2023 COMPR EHENS ITALO METAB OLIC PANEL A/G ratio 2.1 ratio 1.0-2. 0 high Not Available [facility] (Lab) [address] [place], [address], 07/24/2023 18:02:52 08/12/19 24 08/12/2023 BASIC METAB OLIC PANEL sodium 140 mmol/ L 137-14 5 Not Available [facility] (Lab) [address] [place], [address], 08/12/2023 15:47:29 08/12/19 24 08/12/2023 BASIC METAB OLIC PANEL potassium 4.1 mmol/ L 3.5-5. 1 Not Available [facility] (Lab) [address] [place], [address], 08/12/2023 15:47:29 08/12/19 24 08/12/2023 BASIC METAB OLIC PANEL chloride 108 mmol/ L 98-107 high Not Available [facility] (Lab) [address] [place], [address], 08/12/2023 15:47:29 08/12/19 24 08/12/2023 BASIC METAB OLIC PANEL carbon dioxide 26 mmol/ L 22-30 Not Available [facility] (Lab) [address] [place], [address], 08/12/2023 15:47:29 08/12/19 24 08/12/2023 BASIC METAB OLIC PANEL anion gap 10.1 mmol/ L 14-22 low Not Available [facility] (Lab) [address] [place], [address], 08/12/2023 15:47:29 08/12/19 24 08/12/2023 BASIC METAB OLIC PANEL glucose 91 mg/dL 70-99 Not Available [facility] (Lab) [address] [place], [address], 08/12/2023 15:47:29 08/12/19 24 08/12/2023 BASIC METAB OLIC PANEL BUN 13 mg/dL 8-19 Not Available [facility] (Lab) [address] [place], [address], 08/12/2023 15:47:29 08/12/19 24 08/12/2023 BASIC METAB OLIC PANEL creatinine 0.90 mg/dL 0.66-1 .25 Not Available [facility] (Lab) [address] [place], [address], 08/12/2023 15:47:29 08/12/19 24 08/12/2023 BASIC METAB OLIC PANEL GFR 59 Refer ence Range : [place] GFR Healt hy Adult : >60 [...] calcu lator is avail able on the [facility] websi te: https :[email or web address] [email or web address] lopez/pr ofess ional s/kdo qi/gf r_cal culat or Not Available [facility] (Lab) [address] [place], [address], 08/12/2023 15:47:29 08/12/19 24 08/12/2023 BASIC METAB OLIC PANEL calcium 9.0 mg/dL 8.4-10 .2 Not Available [facility] (Lab) [address] [place], [address], 08/12/2023 15:47:29 11/27/19 24 11/27/2023 CBC/C OMPLE TE BLD COUNT W/DIF F white blood cells 4.2 x10'3 /uL 4.2-10 .8 Not Available [facility] (Lab) [address] [place], [address], 11/27/2023 13:54:53 11/27/19 24 11/27/2023 CBC/C OMPLE TE BLD COUNT W/DIF F red blood cells 4.16 x10'6 /uL 3.80-5 .20 Not Available [facility] (Lab) [address] [place], [address], 11/27/2023 13:54:53 11/27/19 24 11/27/2023 CBC/C OMPLE TE BLD COUNT W/DIF F hemoglobin 12.7 g/dL 12.0-1 5.6 Not Available [facility] (Lab) [address] [place], [address], 11/27/2023 13:54:53 11/27/19 24 11/27/2023 CBC/C OMPLE TE BLD COUNT W/DIF F hematocrit 39.8 % 35.7-4 5.7 Not Available [facility] (Lab) [address] [place], [address], 11/27/2023 13:54:53 11/27/19 24 11/27/2023 CBC/C OMPLE TE BLD COUNT W/DIF F mean red cell volume 95.7 fL 82.0-9 9.0 Not Available [facility] (Lab) [address] [place], [address], 11/27/2023 13:54:53 11/27/19 24 11/27/2023 CBC/C OMPLE TE BLD COUNT W/DIF F mean red cell hemoglobin 30.5 pg 27.0-3 3.0 Not Available [facility] (Lab) [address] [place], [address], 11/27/2023 13:54:53 11/27/19 24 11/27/2023 CBC/C OMPLE TE BLD COUNT W/DIF F mean RBC HGB concentratio n 31.9 g/dL 31.0-3 6.0 Not Available [facility] (Lab) [address] [place], [address], 11/27/2023 13:54:53 11/27/19 24 11/27/2023 CBC/C OMPLE TE BLD COUNT W/DIF F red cell distribution width 13.5 % 11.8-1 5.5 Not Available [facility] (Lab) [address] [place], [address], 11/27/2023 13:54:53 11/27/19 24 11/27/2023 CBC/C OMPLE TE BLD COUNT W/DIF F platelets 109 x10'3 /uL 150-40 0 low Not Available [facility] (Lab) [address] [place], [address], 11/27/2023 13:54:53 11/27/19 24 11/27/2023 CBC/C OMPLE TE BLD COUNT W/DIF F mean platelet volume 13.3 fL 9.0-12 .4 high Not Available [facility] (Lab) [address] [place], [address], 11/27/2023 13:54:53 11/27/19 24 11/27/2023 CBC/C OMPLE TE BLD COUNT W/DIF F neutrophils 55.1 % 39.0-7 2.0 Not Available [facility] (Lab) [address] [place], [address], 11/27/2023 13:54:53 11/27/19 24 11/27/2023 CBC/C OMPLE TE BLD COUNT W/DIF F lymphocytes 29.8 % 16.0-4 7.0 Not Available [facility] (Lab) [address] [place], [address], 11/27/2023 13:54:53 11/27/19 24 11/27/2023 CBC/C OMPLE TE BLD COUNT W/DIF F monocytes 10.5 % 5.0-12 .0 Not Available [facility] (Lab) [address] [place], [address], 11/27/2023 13:54:53 11/27/19 24 11/27/2023 CBC/C OMPLE TE BLD COUNT W/DIF F eosinophils 3.6 % 1.0-7. 0 Not Available [facility] (Lab) [address] [place], [address], 11/27/2023 13:54:53 11/27/19 24 11/27/2023 CBC/C OMPLE TE BLD COUNT W/DIF F basophils 0.5 % 0.0-2. 0 Not Available [facility] (Lab) [address] [place], [address], 11/27/2023 13:54:53 11/27/19 24 11/27/2023 CBC/C OMPLE TE BLD COUNT W/DIF F immature granulocytes 0.5 % 0.00-0 .50 Not Available [facility] (Lab) [address] [place], [address], 11/27/2023 13:54:53 11/27/19 24 11/27/2023 CBC/C OMPLE TE BLD COUNT W/DIF F neutrophils, absolute count 2.31 x10'3 /uL 1.5-8. 0 Not Available [facility] (Lab) [address] [place], [address], 11/27/2023 13:54:53 11/27/19 24 11/27/2023 CBC/C OMPLE TE BLD COUNT W/DIF F lymphocytes, absolute count 1.25 x10'3 /uL 1.07-3 .43 Not Available [facility] (Lab) [address] [place], [address], 11/27/2023 13:54:53 11/27/19 24 11/27/2023 CBC/C OMPLE TE BLD COUNT W/DIF F monocytes, absolute count 0.44 x10'3 /uL 0.29-0 .99 Not Available [facility] (Lab) [address] [place], [address], 11/27/2023 13:54:53 11/27/19 24 11/27/2023 CBC/C OMPLE TE BLD COUNT W/DIF F eosinophils, absolute count 0.15 x10'3 /uL 0.02-0 .53 Not Available [facility] (Lab) [address] [place], [address], 11/27/2023 13:54:53 11/27/19 24 11/27/2023 CBC/C OMPLE TE BLD COUNT W/DIF F basophils, absolute count 0.02 x10'3 /uL 0.01-0 .08 Not Available [facility] (Lab) [address] [place], [address], 11/27/2023 13:54:53 11/27/19 24 11/27/2023 CBC/C OMPLE TE BLD COUNT W/DIF F immature granulocytes ,absolute 0.02 x10'3 /uL 0.00-0 .05 Not Available [facility] (Lab) [address] [place], [address], 11/27/2023 13:54:53 11/27/19 24 11/27/2023 CBC/C OMPLE TE BLD COUNT W/DIF F nucleated red blood cells 0.0 % -0 Not Available [facility] (Lab) [address] [place], [address], 11/27/2023 13:54:53 11/27/19 24 11/27/2023 CBC/C OMPLE TE BLD COUNT W/DIF F NRBC# 0.00 x10'3 /uL Not Available [facility] (Lab) [address] [place], [address], 11/27/2023 13:54:53 11/27/19 24 11/27/2023 T4 FREE free T4 1.74 NG/dL 0.78-2 .19 Not Available [facility] (Lab) [address] [place], [address], 11/27/2023 16:34:17 11/27/19 24 11/27/2023 COMPR EHENS ITALO METAB OLIC PANEL sodium 138 mmol/ L 137-14 5 Not Available [facility] (Lab) [address] [place], [address], 11/27/2023 16:32:25 11/27/19 24 11/27/2023 COMPR EHENS ITALO METAB OLIC PANEL potassium 4.1 mmol/ L 3.5-5. 1 Not Available [facility] (Lab) [address] [place], [address], 11/27/2023 16:32:25 11/27/19 24 11/27/2023 COMPR EHENS ITALO METAB OLIC PANEL chloride 112 mmol/ L 98-107 high Not Available [facility] (Lab) [address] [place], [address], 11/27/2023 16:32:25 11/27/19 24 11/27/2023 COMPR EHENS ITALO METAB OLIC PANEL carbon dioxide 25 mmol/ L 22-30 Not Available [facility] (Lab) [address] [place], [address], 11/27/2023 16:32:25 11/27/19 24 11/27/2023 COMPR EHENS ITALO METAB OLIC PANEL anion gap 5.1 mmol/ L 14-22 low Not Available [facility] (Lab) [address] [place], [address], 11/27/2023 16:32:25 11/27/19 24 11/27/2023 COMPR EHENS ITALO METAB OLIC PANEL glucose 102 mg/dL 70-99 high Not Available [facility] (Lab) [address] [place], [address], 11/27/2023 16:32:25 11/27/19 24 11/27/2023 COMPR EHENS ITALO METAB OLIC PANEL BUN 20 mg/dL 8-19 high Not Available [facility] (Lab) [address] [place], [address], 11/27/2023 16:32:25 11/27/19 24 11/27/2023 COMPR EHENS ITALO METAB OLIC PANEL creatinine 0.94 mg/dL 0.66-1 .25 Not Available [facility] (Lab) [address] [place], [address], 11/27/2023 16:32:25 11/27/19 24 11/27/2023 COMPR EHENS ITALO METAB OLIC PANEL GFR 56 Refer ence Range : [place] GFR Healt hy Adult : >60 [...] or ethni c subgr oups, such as Hisnv nics. Outsi de the valid ated paco [...] s/kdo qi/gf r_cal culat or Not Available [facility] (Lab) [address] [place], [address], 11/27/2023 16:32:25 11/27/19 24 11/27/2023 COMPR EHENS ITALO METAB OLIC PANEL alkaline phosphatase 89 U/L 38-126 Not Available [facility] (Lab) [address] [place], [address], 11/27/2023 16:32:25 11/27/19 24 11/27/2023 COMPR EHENS ITALO METAB OLIC PANEL alanine aminotransfe rase 12 U/L 0-35 Not Available [facility] (Lab) [address] [place], [address], 11/27/2023 16:32:25 11/27/19 24 11/27/2023 COMPR EHENS ITALO METAB OLIC PANEL aspartate aminotransfe rase 24 U/L 15-37 Not Available [facility] (Lab) [address] [place], [address], 11/27/2023 16:32:25 11/27/19 24 11/27/2023 COMPR EHENS ITALO METAB OLIC PANEL bilirubin, total 1.60 mg/dL 0.20-1 .30 high Not Available [facility] (Lab) [address] [place], [address], 11/27/2023 16:32:25 11/27/19 24 11/27/2023 COMPR EHENS ITALO METAB OLIC PANEL calcium 9.1 mg/dL 8.4-10 .2 Not Available [facility] (Lab) [address] [place], [address], 11/27/2023 16:32:25 11/27/19 24 11/27/2023 COMPR EHENS ITALO METAB OLIC PANEL total protein 6.1 g/dL 6.3-8. 2 low Not Available [facility] (Lab) [address] [place], [address], 11/27/2023 16:32:25 11/27/19 24 11/27/2023 COMPR EHENS ITALO METAB OLIC PANEL albumin 3.9 g/dL 3.0-4. 4 Not Available [facility] (Lab) [address] [place], [address], 11/27/2023 16:32:25 11/27/19 24 11/27/2023 COMPR EHENS ITALO METAB OLIC PANEL globulin 2.2 g/dL 2.6-4. 2 low Not Available [facility] (Lab) [address] [place], [address], 11/27/2023 16:32:25 11/27/19 24 11/27/2023 COMPR EHENS ITALO METAB OLIC PANEL A/G ratio 1.8 ratio 1.0-2. 0 Not Available [facility] (Lab) [address] [place], [address], 11/27/2023 16:32:25 11/27/19 24 11/27/2023 LIPID PANEL cholesterol 112 mg/dL 140-19 9 low NIH BECKI NSUS RECOM MENDA TION FOR MADELEINE STERO L: ADULT CHILD LOW RISK: <200 <170 BORDE RLINE : <200- 239 ----- HIGH RISK: >240 >200 Not Available [facility] (Lab) [address] [place], [address], 11/27/2023 16:32:30 11/27/19 24 11/27/2023 LIPID PANEL triglyceride s 139 mg/dL 0-150 NIH BECKI NSUS REPOR T RECOM MENDA TION FOR TRIGL YCERI HARLEY: ADULT CHILD LOW RISK: <150 ----- BODER LINE: 150-1 99 ----- HIGH RISK: >200 ----- Not Available [facility] (Lab) [address] [place], [address], 11/27/2023 16:32:30 11/27/19 24 11/27/2023 LIPID PANEL HDL cholesterol 36 mg/dL 40- low Not Available [facility] (Lab) [address] [place], [address], 11/27/2023 16:32:30 11/27/19 24 11/27/2023 LIPID PANEL [...] WILL NOT BE REPOR YUSUF. Not Available [facility] (Lab) [address] [place], [address], 11/27/2023 16:32:30 11/27/19 24 11/27/2023 TSH thyroid-stim ulating hormone 0.061 uIU/m L 0.465- 4.680 low Not Available [facility] (Lab) [address] [place], [address], 11/27/2023 16:45:53 12/02/19 24 12/02/2023 VITAM IN B12 (DIAZ DARLYN ) vb12 >1000 pg/mL 239-93 1 high Not Available [facility] (Lab) [address] [place], [address], 12/02/2023 13:21:02 04/06/20 24 04/06/2024 LIPID PANEL , STAND CARLY cholesterol, total 97 mg/dL <200 normal Not Available [employer] [address] [address] [place], [address], 04/06/2024 19:58:48 04/06/20 24 04/06/2024 LIPID PANEL , STAND CARLY HDL cholesterol 32 mg/dL > or = 50 low Not Available [employer] [address] [address] [place], [address], 04/06/2024 19:58:48 04/06/20 24 04/06/2024 LIPID PANEL , STAND CARLY triglyceride s 82 mg/dL <150 normal Not Available [facility] [address] [place], [address], 04/06/2024 19:58:48 04/06/20 24 04/06/2024 LIPID PANEL [...] 310(1 9): 2061- 2068 (http ://ed ucati on.Idibon Marie FoneSense. com/f aq/FA Q164) Not Available [facility] [address] [address], [place], [address], 04/06/2024 19:58:48 04/06/20 24 04/06/2024 LIPID PANEL , STAND CARLY chol/HDLC ratio 3.0 (calc ) <5.0 normal Not Available [facility] [address] [place], [address], 04/06/2024 19:58:48 04/06/20 24 04/06/2024 LIPID PANEL , STAND CARLY non HDL cholesterol 65 mg/dL _(keyona c) <130 normal For patie nts with diabe cielo plus 1 major ASCVD risk facto r, treat ing to a non-H DL-C goal of <100 mg/dL (LDL- C of <70 mg/dL ) is consi dered a thera pepapo c optio n. Not Available [facility] [address] [place], [address], 04/06/2024 19:58:48 04/06/20 24 04/06/2024 COMPR EHENS ITALO METAB OLIC PANEL glucose 96 mg/dL 65-99 normal Fasti ng refer ence inter tim Not Available [address], [address], 04/06/2024 19:58:50 04/06/20 24 04/06/2024 COMPR EHENS ITALO METAB OLIC PANEL urea nitrogen (BUN) 14 mg/dL 7-25 normal Not Available [address], [address], 04/06/2024 19:58:50 04/06/20 24 04/06/2024 COMPR EHENS TIALO METAB OLIC PANEL creatinine 0.98 mg/dL 0.60-0 .95 high Not Available [address], [address], 04/06/2024 19:58:50 04/06/20 24 04/06/2024 COMPR EHENS ITALO METAB OLIC PANEL eGFR 56 mL/mi n/1.7 3m2 > or = 60 low Not Available [address], [address], 04/06/2024 19:58:50 04/06/20 24 04/06/2024 COMPR EHENS ITALO METAB OLIC PANEL BUN/creatini ne ratio 14 (calc ) 6-22 normal Not Available [address], [address], 04/06/2024 19:58:50 04/06/20 24 04/06/2024 COMPR EHENS ITALO METAB OLIC PANEL sodium 144 mmol/ L 135-14 6 normal Not Available [address], [address], 04/06/2024 19:58:50 04/06/20 24 04/06/2024 COMPR EHENS ITALO METAB OLIC PANEL potassium 4.0 mmol/ L 3.5-5. 3 normal Not Available [address] [address] [place], [address], 04/06/2024 19:58:50 04/06/20 24 04/06/2024 COMPR EHENS ITALO METAB OLIC PANEL chloride 109 mmol/ L 98-110 normal Not Available [address] [place], [address], 04/06/2024 19:58:50 04/06/20 24 04/06/2024 COMPR EHENS ITALO METAB OLIC PANEL carbon dioxide 26 mmol/ L 20-32 normal Not Available [address], [address], 04/06/2024 19:58:50 04/06/20 24 04/06/2024 COMPR EHENS ITALO METAB OLIC PANEL calcium 8.9 mg/dL 8.6-10 .4 normal Not Available [address], [address], 04/06/2024 19:58:50 04/06/20 24 04/06/2024 COMPR EHENS ITALO METAB OLIC PANEL protein, total 5.8 g/dL 6.1-8. 1 low Not Available [address], [address], 04/06/2024 19:58:50 04/06/20 24 04/06/2024 COMPR EHENS ITALO METAB OLIC PANEL albumin 3.8 g/dL 3.6-5. 1 normal Not Available [address] [place], [address], 04/06/2024 19:58:50 04/06/20 24 04/06/2024 COMPR EHENS ITALO METAB OLIC PANEL globulin 2.0 g/dL_ (calc ) 1.9-3. 7 normal Not Available [address], [address], 04/06/2024 19:58:50 04/06/20 24 04/06/2024 COMPR EHENS ITALO METAB OLIC PANEL albumin/glob ulin ratio 1.9 (calc ) 1.0-2. 5 normal Not Available [address], [address], 04/06/2024 19:58:50 04/06/20 24 04/06/2024 COMPR EHENS ITALO METAB OLIC PANEL bilirubin, total 1.4 mg/dL 0.2-1. 2 high Not Available [address], [address], 04/06/2024 19:58:50 04/06/20 24 04/06/2024 COMPR EHENS ITALO METAB OLIC PANEL alkaline phosphatase 88 U/L 37-153 normal Not Available [address], [address], 04/06/2024 19:58:50 04/06/20 24 04/06/2024 COMPR EHENS ITALO METAB OLIC PANEL AST 11 U/L 10-35 normal Not Available [address], [address], 04/06/2024 19:58:50 04/06/20 24 04/06/2024 COMPR EHENS ITALO METAB OLIC PANEL ALT 6 U/L 6-29 normal Not Available [address], [address], 04/06/2024 19:58:50 04/06/20 24 04/06/2024 CBC (INCL UDES DIFF/ PLT) white blood cell count 4.3 thous and/u L 3.8-10 .8 normal Not Available [address], [address], 04/06/2024 19:58:51 04/06/20 24 04/06/2024 CBC (INCL UDES DIFF/ PLT) red blood cell count 3.89 maddie on/uL 3.80-5 .10 normal Not Available [address], [address], 04/06/2024 19:58:51 04/06/20 24 04/06/2024 CBC (INCL UDES DIFF/ PLT) hemoglobin 12.1 g/dL 11.7-1 5.5 normal Not Available [address], [address], 04/06/2024 19:58:51 04/06/20 24 04/06/2024 CBC (INCL UDES DIFF/ PLT) hematocrit 38.6 % 35.0-4 5.0 normal Not Available [address], [address], 04/06/2024 19:58:51 04/06/20 24 04/06/2024 CBC (INCL UDES DIFF/ PLT) MCV 99.2 fL 80.0-1 00.0 normal Not Available [address], [address], 04/06/2024 19:58:51 04/06/20 24 04/06/2024 CBC (INCL UDES DIFF/ PLT) MCH 31.1 pg 27.0-3 3.0 normal Not Available [address], [address], 04/06/2024 19:58:51 04/06/20 24 04/06/2024 CBC (INCL [...] nt's clini keyona condi tion. Not Available [facility] - [address], [address], 04/06/2024 19:58:51 04/06/20 24 04/06/2024 CBC (INCL UDES DIFF/ PLT) RDW 12.9 % 11.0-1 5.0 normal Not Available [address], [address], 04/06/2024 19:58:51 04/06/20 24 04/06/2024 CBC (INCL UDES DIFF/ PLT) platelet count 100 thous and/u L 140-40 0 low Not Available [facility] [address], [address], 04/06/2024 19:58:51 04/06/20 24 04/06/2024 CBC (INCL UDES DIFF/ PLT) MPV 13.0 fL 7.5-12 .5 high Not Available [address], [address], 04/06/2024 19:58:51 04/06/20 24 04/06/2024 CBC (INCL UDES DIFF/ PLT) absolute neutrophils 2670 cells /uL 1500-7 800 normal Not Available [address], [address], 04/06/2024 19:58:51 04/06/20 24 04/06/2024 CBC (INCL UDES DIFF/ PLT) absolute lymphocytes 920 cells /uL 850-39 00 normal Not Available [address], [address], 04/06/2024 19:58:51 04/06/20 24 04/06/2024 CBC (INCL UDES DIFF/ PLT) absolute monocytes 490 cells /uL 200-95 0 normal Not Available [address], [address], 04/06/2024 19:58:51 04/06/20 24 04/06/2024 CBC (INCL UDES DIFF/ PLT) absolute eosinophils 211 cells /uL 15-500 normal Not Available [address], [address], 04/06/2024 19:58:51 04/06/20 24 04/06/2024 CBC (INCL UDES DIFF/ PLT) absolute basophils 9 cells /uL 0-200 normal Not Available [address], [address], 04/06/2024 19:58:51 04/06/20 24 04/06/2024 CBC (INCL UDES DIFF/ PLT) neutrophils 62.1 % normal Not Available [address], [address], 04/06/2024 19:58:51 04/06/20 24 04/06/2024 CBC (INCL UDES DIFF/ PLT) lymphocytes 21.4 % normal Not Available [address], [address], 04/06/2024 19:58:51 04/06/20 24 04/06/2024 CBC (INCL UDES DIFF/ PLT) monocytes 11.4 % normal Not Available [address], [address], 04/06/2024 19:58:51 04/06/20 24 04/06/2024 CBC (INCL UDES DIFF/ PLT) eosinophils 4.9 % normal Not Available [address], [address], 04/06/2024 19:58:51 04/06/20 24 04/06/2024 CBC (INCL UDES DIFF/ PLT) basophils 0.2 % normal Not Available [address], [address], 04/06/2024 19:58:51 04/06/20 24 04/06/2024 T4, FREE T4, free 1.3 NG/dL 0.8-1. 8 normal Not Available [address], [address], 04/06/2024 19:58:52 04/06/20 24 04/06/2024 TSH TSH 0.25 mIU/L 0.40-4 .50 low Not Available [address], [address], 04/06/2024 19:58:54 05/19/19 25 05/20/2024 RETIC ULOCY TE COUNT reticulocyte count, automated 1.2 % normal Not Available [address], [address], 05/20/2024 03:48:07 05/19/1905/20/2024 RETIC ULOCY TE COUNT reticulocyte , absolute 19356 cells /uL [address]- [address] normal Not Available [address], [address], 05/20/2024 03:48:07 05/19/1905/20/2024 CBC (INCL UDES DIFF/ PLT) white blood cell count 5.1 thous and/u L 3.8-10 .8 normal Not Available [address], [address], 05/20/2024 03:48:08 05/19/1905/20/2024 CBC (INCL UDES DIFF/ PLT) red blood cell count 4.19 maddie on/uL 3.80-5 .10 normal Not Available [address], [address], 05/20/2024 03:48:08 05/19/1905/20/2024 CBC (INCL UDES DIFF/ PLT) hemoglobin 12.9 g/dL 11.7-1 5.5 normal Not Available [address], [address], 05/20/2024 03:48:08 05/19/1905/20/2024 CBC (INCL UDES DIFF/ PLT) hematocrit 41.9 % 35.0-4 5.0 normal Not Available [address], [address], 05/20/2024 03:48:08 05/19/1905/20/2024 CBC (INCL UDES DIFF/ PLT) MCV 100.0 fL 80.0-1 00.0 normal Not Available [address], [address], 05/20/2024 03:48:08 05/19/1905/20/2024 CBC (INCL UDES DIFF/ PLT) MCH 30.8 pg 27.0-3 3.0 normal Not Available [address], [address], 05/20/2024 03:48:08 05/19/1905/20/2024 CBC (INCL UDES DIFF/ [...] nt's clini keyona condi tion. Not Available [address], [address], 05/20/2024 03:48:08 05/19/1905/20/2024 CBC (INCL UDES DIFF/ PLT) RDW 13.0 % 11.0-1 5.0 normal Not Available [address], [address], 05/20/2024 03:48:08 05/19/1905/20/2024 CBC (INCL UDES DIFF/ PLT) platelet count 88 thous and/u L 140-40 0 low Not Available [address], [address], 05/20/2024 03:48:08 05/19/1905/20/2024 CBC (INCL UDES DIFF/ PLT) MPV 13.9 fL 7.5-12 .5 high Not Available [address], [address], 05/20/2024 03:48:08 05/19/1905/20/2024 CBC (INCL UDES DIFF/ PLT) absolute neutrophils 3330 cells /uL 1500-7 800 normal Not Available [address], [address], 05/20/2024 03:48:08 05/19/1905/20/2024 CBC (INCL UDES DIFF/ PLT) absolute lymphocytes 1122 cells /uL 850-39 00 normal Not Available [address], [address], 05/20/2024 03:48:08 05/19/1905/20/2024 CBC (INCL UDES DIFF/ PLT) absolute monocytes 459 cells /uL 200-95 0 normal Not Available [address], [address], 05/20/2024 03:48:08 05/19/1905/20/2024 CBC (INCL UDES DIFF/ PLT) absolute eosinophils 168 cells /uL 15-500 normal Not Available [employer] [address], [address], 05/20/2024 03:48:08 05/19/1905/20/2024 CBC (INCL UDES DIFF/ PLT) absolute basophils 20 cells /uL 0-200 normal Not Available [employer] [address], [address], 05/20/2024 03:48:08 05/19/1905/20/2024 CBC (INCL UDES DIFF/ PLT) neutrophils 65.3 % normal Not Available [address], [address], 05/20/2024 03:48:08 05/19/1905/20/2024 CBC (INCL UDES DIFF/ PLT) lymphocytes 22.0 % normal Not Available [facility] [address], [address], 05/20/2024 03:48:08 05/19/1905/20/2024 CBC (INCL UDES DIFF/ PLT) monocytes 9.0 % normal Not Available [facility] [address], [address], 05/20/2024 03:48:08 05/19/1905/20/2024 CBC (INCL UDES DIFF/ PLT) eosinophils 3.3 % normal Not Available [facility] [address], [address], 05/20/2024 03:48:08 05/19/1905/20/2024 CBC (INCL UDES DIFF/ PLT) basophils 0.4 % normal Not Available [facility] [address], [address], 05/20/2024 03:48:08 05/19/1905/20/2024 VITAM IN B12/F OLATE , SERUM PANEL vitamin B12 1685 pg/mL 200-11 00 high Not Available [facility] [address], [address], 05/20/2024 03:48:09 05/19/1905/20/2024 VITAM IN B12/F OLATE , SERUM PANEL folate, serum 10.6 NG/mL normal Refer ence Range Low: <3.4 Borde rline : 3.4-5 .4 Clara l: >5.4 Not Available [facility] [address] [address], [place], [address], 05/20/2024 03:48:09 07/31/19 24 07/31/2023 XR, chest No observ ation record ed. [address], [place], [address], 07/31/2023 16:02:29 12/16/19 24 12/16/2023 XR, pelvi s No observ ation record ed. [address], [place], [address], 12/19/2023 17:18:52 12/17/19 24 12/17/2023 XR, hip + pelvi s, bilat eral No observ ation record ed. [address], [place], [address], 12/19/2023 17:19:30 12/20/19 24 12/20/2023 XR, chest , 1 view No observ ation record ed. [address], [place], [address], 12/20/2023 16:53:15 06/26/19 25 06/25/2024 XR, shoul nahomy, 1 view No observ ation record ed. [address], [place], [address], 06/25/2024 16:17:55 06/26/19 25 06/25/2024 CT, chest , w/o contr ast No observ ation record ed. [address], [place], [address], 06/25/2024 16:46:47 Result Notes None recorded. Problems Name Problem SNOMED Code Status Onset Date Resolution Date Notes Provider Name and Address Organization Details Recorded Time Hyperchole sterolemia 61831678 Active Not Available [facility] 3 06:58:07 Anxiety disorder 000677767 Active Not Available [facility] 3 06:58:07 Postablati ve hypothyroi dism 204943476 Completed Not Available [facility] 3 06:58:07 Mass of neck 267581493 Active 2021 Not Available [facility] 3 06:58:07 Lymphadeno damian 71233324 Active 2021 Not Available [facility] 3 06:58:07 Migraine 29226850 Active Not Available [facility] 3 06:58:07 Neuropathy 724831670 Active 2019 Not Available [facility] 3 06:58:07 Vertigo 830560441 Active Not Available [facility] 3 06:58:07 Hypothyroi dism 13454941 Active Not Available [facility] 3 06:58:07 Congestive heart failure 35725825 Active 2020 Not Available [facility] 3 06:58:07 Atrial fibrillati on 35573037 Active 2021 Not Available [facility] 3 06:58:07 Initial insomnia 58095276 Active 2017 Not Available [facility] 3 06:58:07 Swollen abdomen 72395185 Active Not Available [facility] 3 06:58:07 Abscess of neck 1615488 Active 2021 Not Available [facility] 3 06:58:07 Fatigue 37086553 Active Not Available [facility] 3 06:58:07 Otitis media 26240776 Active 2022 Adarsh Tan MD [address], [place], [address] , [employer] [facility] [employer] 3 11:46:53 Acute pharyngiti s 741253606 Active 2022 Adarsh Tan MD [address], [place], [address] , [facility] [employer] [facility] 3 11:05:13 Vitamin D deficiency 91013048 Active 2022 Adarsh Tan MD [address], [place], [address] , [facility] 3 11:06:38 Anemia 645384607 Active 2022 Tammie Pope null, [place] [facility] 3 16:14:43 Cough 86470916 Active 2023 Adarsh Tan MD [address], [address], [place], [address] , [facility] 4 10:30:41 Hypokalemi a 05735733 Active 2023 NENA Delgado, [facility] 4 11:07:29 Overactive urinary bladder 584751877 Active 2023 NENA Delgado, [facility] 4 11:05:16 Acute sinusitis 21530963 Active 2023 Adarsh Tan MD [address], [address], [place], [address] , [facility] 4 15:13:51 Thrombocyt openic disorder 890067807 Active 2023 Adarsh Tan MD [address], [address], [place], [address] , [facility] 4 12:51:10 Dementia 45066793 Active 2023 NENA Delgado, [facility] 4 16:50:41 Acute bronchitis 77835686 Active 2024 Adarsh Tan MD [address], [address], [place], [address] , [facility] 5 11:21:23 Essential thrombocyt hemia 013548626 Active 2024 NENA Delgado, [facility] 5 12:56:04 Problem Notes None recorded. Procedures Surgical History Date Name Laterality Status Provider Name and Address Organization Details Recorded Time 4 Medicare Wellness CPT Code, subsequent completed Junie Lee RN [facility] [employer] [facility] 01/15/2024 11:05:43 4 Nail Debridement completed Javier Yoder DPM [address], [place], [address], [facility] [employer] [facility] 11/04/2023 15:12:59 4 Debridement of Callus or [place] completed Javier Yoder DPM [address], [place], [address], [facility] [employer] [facility] 11/04/2023 15:13:22 3 Medicare Wellness CPT Code, subsequent completed Junie Lee RN [facility] [employer] [facility] 12/05/2022 10:51:58 Imaging Results Imaging Date Name Status LastModified by Organiz ation Details LastModified Time 07/31/2023 XR, chest completed [email or web address] [address] [place] [address], [address], 07/31/2023 16:02:29 12/16/2023 XR, pelvis completed [address] [place] [address], [address], 12/19/2023 17:18:52 12/17/2023 XR, hip + pelvis, bilateral completed [email or web address] [place] [address] [place] [address], [address], 12/19/2023 17:19:30 12/20/2023 XR, chest, 1 view completed [address] [place] [address], [address], 12/20/2023 16:53:15 06/25/2024 XR, shoulder, 1 view completed [address] [place] [address], [address], 06/25/2024 16:17:55 06/25/2024 CT, chest, w/o contrast completed [address] [place] [address], [address], 06/25/2024 16:46:47 Procedure Notes None recorded. Medical Equipment None Reported. Allergies Allergen ID Allergen Name Allergen Category Reaction Reaction Severity Criticality Documentation Date Start Date Code Code System Note Provider Name and Address Organization Details Recorded Time 06803 Tamiflu medicatio n rash Not available Not available 06/20/2022 23197 7 RxNorm Not Available [facility] 3 07:01:37 [address]50 Robitussi n medicatio n other Not available Not available 06/20/2022 03346 2 RxNorm facia l swell ing Not Available [facility] 3 07:01:37 Medications Name Sig Start Date [...] Updated DateTime 4 158.75 cm 23 kg/m2 29108.8 2 g 76 /min 97 [degF] 93 % 93 % 120 mm[Hg] 80 mm[Hg] Tammie Pope [employer] [facility] [employer] 4 10:58:32 Date Recorded Body height Body mass index (BMI) Body weight Oxygen saturation Oxygen saturation in Arterial blood by Pulse oximetry Body temperature Provider Name and Address Organization Details Last Updated DateTime 4 158.75 cm 23 kg/m2 99763.8 2 g 95 % 95 % 98.1 [degF] ASHLEY Ordonez [employer] [facility] [employer] [facility] 4 11:21:55 Date Recorded Body height Body mass index (BMI) Body weight Heart rate Body temperature Oxygen saturation Oxygen saturation in Arterial blood by Pulse oximetry Systolic blood pressure Diastolic blood pressure Provider Name and Address Organization Details Last Updated DateTime 4 158.75 cm 22.1 kg/m2 38550.8 6 g 72 /min 97.5 [degF] 98 % 98 % 124 mm[Hg] 84 mm[Hg] Arlin Vicente Jacqueline [facility] [employer] [facility] 4 11:23:31 Date Recorded Body height Body weight Heart rate Body temperature Oxygen saturation Oxygen saturation in Arterial blood by Pulse oximetry Systolic blood pressure Diastolic blood pressure Provider Name and Address Organization Details Last Updated DateTime 4 158.75 cm 19422.0 5 g 83 /min 97 [degF] 96 % 96 % 120 mm[Hg] 84 mm[Hg] Arlin Vicente ASHLEY [facility] [employer] [facility] 4 10:58:05 Date Recorded Pain severity - 0-10 verbal numeric rating [Score] - Reported Provider Name and Address Organization Details Last Updated DateTime 01/15/2024 0 Junie Lee RN [facility] [employer] [facility] 01/15/2024 11:06:04 Date Recorded Body height Body mass index (BMI) Body weight Heart rate Body temperature Oxygen saturation Oxygen saturation in Arterial blood by Pulse oximetry Systolic blood pressure Diastolic blood pressure Provider Name and Address Organization Details Last Updated DateTime 4 158.75 cm 20 kg/m2 37617.7 5 g 97 /min 97 [degF] 95 % 95 % 140 mm[Hg] 90 mm[Hg] Arlin Vicente Jacqueline [facility] [employer] [facility] 4 11:36:38 Social History Question Answer Notes LastModified by Organizat ion Details LastModified Time Tobacco Smoking Status Never Smoker Not Available [facility] 06/20/2022 06:55:12 Do You Have An Advance Directive? Yes [email or web address] Information not available 12/05/2022 What Is Your Level Of Alcohol Consumption? None [email or web address] Information not available 01/15/2024 Are You Blind Or Do You Have Difficulty Seeing? No [id number] Information not available 06/20/2022 In The 14 Days Before Symptom Onset, Have You Had Close Contact With A Laboratory-confir med COVID-19 While That Case Was Ill? No [id number] Information not available 06/20/2022 In The 14 Days Before Symptom Onset, Have You Had Close Contact With A Person Who Is Under Investigation For COVID-19 While That Person Was Ill? No [id number] Information not available 06/20/2022 Are You Deaf Or Do You Have Serious Difficulty Hearing? Yes [email or web address] Information not available 12/05/2022 What Type Of Diet Are You Following? REGULAR [id number] Information not available 06/20/2022 Have There Been Any Changes To Your Family Or Social Situation? No [id number] Information not available 06/20/2022 What Is The Fluoride Status Of Your Home? Unknown [id number] Information not available 06/20/2022 Are There Any Guns Present In Your Home? No [id number] Information not available 06/20/2022 Do You Use Insect Repellent Routinely? No [id number] Information not available 06/20/2022 Where Do You Live? [place] [id number] Information not available 06/20/2022 Guns Present In The Home? No [email or web address] Information not available 12/05/2022 Are You Able To Care For Yourself? Yes [email or web address] Information not available 12/05/2022 Are You Blind Or Do Yo Have Difficulty Seeing? No [email or web address] Information not available 12/05/2022 Are You Deaf Or Do You Have Serious Difficulty Hearing? Yes [email or web address] Information not available 12/05/2022 Live Alone Of With Others? 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 01/15/2024 [email or web address] Information not available 01/15/2024 Do You Have Any Pets? No [email or web address] Information not available 12/05/2022 What Is Your Relationship Status? [email or web address] Information not available 12/05/2022 Do You Use Your Seat Belt Or Car Seat Routinely? Yes [email or web address] Information not available 12/05/2022 Do You Have Smoke And Carbon Monoxide Detectors In Your Home? Yes MIGRATION.[id number] Information not available 06/20/2022 Are You Passively Exposed To Smoke? No MIGRATION.64123 83135 Information not available 06/20/2022 Are There Any Smokers In Your House? No [email or web address] Information not available 12/05/2022 Do You Use Sunscreen Routinely? No MIGRATION.[id number] Information not available 06/20/2022 Have You Recently Traveled Abroad? No MIGRATION.44968 15888 Information not available 06/20/2022 Do You Have Any Dietary Restrictions? No MIGRATION.35147 58295 Information not available 06/20/2022 Do You Or Have You Ever Used Any Other Forms Of Tobacco Or Nicotine? No MIGRATION.[id number] [id number] Information not available 06/20/2022 Sex: Unknown Functional Status Question Answer Note LastModified by Organizat ion Details LastModified Time Do you have difficulty walking or climbing stairs? Yes recent hip surgery [email or web address] Information not available 01/15/2024 Do you have transportation difficulties? No MIGRATION.[id number] Information not available 06/20/2022 Are you able to walk? YESASSIST [email or web address] Information not available 01/15/2024 Do you have difficulty doing errands alone? Yes MIGRATION.501662 3670 Information not available 06/20/2022 Are you able to care for yourself? Yes MIGRATION.553026 6984 Information not available 06/20/2022 Do you have difficulty dressing or bathing? No MIGRATION.979620 9692 Information not available 06/20/2022 What is your exercise level? None MIGRATION.503336 8097 Information not available 06/20/2022 Mental Status Question Answer Note LastModified by Organizat ion Details LastModified Time Do you have difficulty concentrating, remembering or making decisions? No MIGRATION.[id number] Information not available 06/20/2022 Family History [...] HEARING PROBLEMS N MUMPS N SHINGLES N DEPRESSION (INCLUDING POST ) N BOWEL PROBLEMS N STROKE/TIA N ULCERS N BENIGN PROSTATIC HYPERPLASIA N MEASLES N HYPOTENSION N MYOCARDIAL INFARCTION N OBESITY N GERD/NAUSEA N ANEURYSM N URINARY/BLADDER/KIDNEY PROBLEMS N CORONARY ARTERY DISEASE (CAD) N ADDICTION CONCERNS N Impotence N ENDOMETRIOSIS N USE OF BLOOD THINNERS N SKIN [...] GLAUCOMA N FOOT PROBLEM N DIVERTICULITIS N SLEEP APNEA N CHICKENPOX N INFECTIOUS DISEASE N PROSTATE N HEART ARRHYTHMIA N INSOMNIA N HIGH CHOLESTEROL / HYPERLIPIDEMIA Y HYPERTHYROIDISM N EYE PROBLEMS N EDEMA N CHRONIC PAIN SYNDROME N HYPOTHYROIDISM Y CONSTIPATION N CAROTID BLOCKAGE N BACK / NECK PROBLEMS N HAVE YOU BEEN HOSPITALIZED OR SEEN IN [facility] IN THE PAST YEAR ? N ATHEROSCLEROSIS [...] Brain Problems N HERPES N DEMENTIA N SEIZURES/EPILEPSY N HEADACHES/MIGRAINES N VASCULAR DISEASE N PACEMAKER N Blood Disorder N DIZZINESS N KIDNEY DISEASE N HEART DISEASE/HEART PROBLEMS N MULTIPLE SCLEROSIS N CARDIAC ARRHYTHMIA N CANCER: SPECIFY N Gall Stones N ATRIAL FIBRILLATION N PULMONARY EMBOLISM N AUTOIMMUNE DISEASE N Gynecological HistoryNo gynecological history recorded. Obstetrics History GPAL:G 0 P 0 0 0 0 Immunizations Vaccine Type Date Status Note Provider Nam e and Address Organization Details Recorded Time Influenza, split virus, trivalent, preservative 5 completed Not Available [facility] 06/20/2022 07:01:28 Influenza, split virus, quadrivalent, preservative 2 completed Not Available [facility] 06/20/2022 07:01:28 SARS-COV-2 (COVID-19) vaccine, UNSPECIFIED 1 completed Not Available [facility] 06/20/2022 07:01:28 Influenza, split virus, quadrivalent, preservative 1 completed Not Available [facility] 06/20/2022 07:01:28 COVID-19 Non-US Vaccine, Product Unknown 1 completed Not Available [facility] 06/20/2022 07:01:28 COVID-19 Non-US Vaccine, Product Unknown 1 completed Not Available [facility] 06/20/2022 07:01:28 Influenza, split virus, trivalent, preservative 8 completed Not Available [facility] 06/20/2022 07:01:28 pneumococcal polysaccharide PPV23 9 completed Not Available [facility] 06/20/2022 07:01:29 Pneumococcal conjugate PCV 13 5 completed Not Available [facility] 06/20/2022 07:01:29 Influenza, high-dose, trivalent, PF 4 completed ASHLEY Tolbert, [employer] [facility] 04/01/2024 14:34:20 Pneumococcal conjugate PCV20, polysaccharide UOX199 conjugate, adjuvant, PF 4 completed ASHLEY Tolbert, [employer] [facility] 04/01/2024 14:34:20 Past Encounters Encounter ID Performer Location Encounter Start Date Encounter Closed Date Diagnosis/Indication Diagnosis SNOMED-CT Code Diagnosis ICD10 Code Diagnosis Note [id number] [facility] [address] [place] [address] [address] 11/09/2020 00:00:00 11/09/2020 12:23:09 [id number] [facility] [address] [address] [address] 12/21/2020 00:00:00 12/21/2020 11:57:58 [id number] [facility] [address] [place] [address] [address] 04/26/2021 00:00:00 04/26/2021 11:58:37 [id number] [facility] [address] [place] [address] [address] 08/23/2021 00:00:00 08/23/2021 11:31:25 [id number] [facility] [address] [address] 12/27/2021 00:00:00 12/27/2021 11:11:12 [id number] [facility] [address] [address] 01/29/2022 00:00:00 01/29/2022 11:30:54 [id number] [facility] [address] [address] 04/05/2022 00:00:00 04/05/2022 13:57:58 [id number] [facility] Internal Med Sybil aranda [address] [place] [address] y [place] [address] 04/06/2022 00:00:00 04/06/2022 15:08:13 [id number] Adarsh Tan MD [facility] Internal Med Sybil aranda [address] [place] [address] [place] [address] 08/07/2022 14:52:21 08/07/2022 15:50:03 Congestive heart failure 44374739 I50.9 Hypercholesterolemia 136 22971 E78.00 Atrial fibrillation 4943 6004 I48.91 Hypothyroidism 61575288 E03.9 [id number] Adarsh Tan MD [facility] Internal [facility] [address] [address] 12/05/2022 10:36:07 12/05/2022 11:12:32 Adult health examination 856889928 Z00.00 Screening for disorder 881795215 Z13.9 Congestive heart failure 87412406 I50.9 Atrial fibrillation 4943 6004 I48.91 Hypothyroidism 96998697 E03.9 Hypercholesterolemia 136 35582 E78.00 Vitamin D deficiency 347 15439 E55.9 [id number] Adarsh Tan MD [facility] [address] [address] 03/27/2023 11:55:06 03/27/2023 12:41:40 Atrial fibrillation 84111891 I48.91 Congestive heart failure 46592024 I50.9 Hypercholesterolemia 136 65890 E78.00 Hypothyroidism 40780137 E03.9 [id number] Adarsh Tan MD [facility] [address] [address] 07/24/2023 10:47:23 07/24/2023 11:57:19 Hypercholesterolemia 05209079 E78.00 Hypothyroidism 09521919 E03.9 Atrial fibrillation 4943 6004 I48.91 [id number] Adarsh Tan MD [facility] [address] [address] 08/15/2023 10:52:05 08/15/2023 11:10:37 Hypokalemia 68750087 E87.6 [id number] Javier Yoder DPM [facility] Pod[facility] [address] [address] 11/04/2023 10:48:49 11/04/2023 16:25:29 [id number] Adarsh Tan MD [facility] [address] [address] 11/27/2023 11:03:52 11/27/2023 11:44:22 Congestive heart failure 26585725 I50.9 Atrial fibrillation 4943 6004 I48.91 Hypothyroidism 72994410 E03.9 Neuropathy 290515266 G62 .9 Hypercholesterolemia 136 41658 E78.00 [id number] Adarsh Tan MD [facility] [address] [address] 01/15/2024 10:39:09 01/15/2024 11:33:49 Adult health examination 059856665 Z00.00 Screening for disorder 786345575 Z13.9 Atrial fibrillation 4943 6004 I48.91 Hypercholesterolemia 136 70278 E78.00 Hypothyroidism 83208518 E03.9 [id number] Adarsh Tan MD [facility] [address] [address] 04/01/2024 11:00:38 04/01/2024 12:04:29 Atrial fibrillation 45217462 I48.91 [facility] 136 92491 E78.00 [facility] 46344069 E03.9 Health Concerns Section Related Observation LastModified by Organization Detai ls LastModified Time None Recorded Concern Status LastModified by Organization Details LastModified Time None Recorded Advance Directives Directive Y: Payers Encounter Date Sequence Insurance Name Policy Number Policy Donahue Covered Member ID Donahue Member ID Guarantor Name 08/15/2023 1 [facility] (MEDICARE REPLACEMENT/A DVANTAGE - HMO) [id number] Renata Gentile Brown [id number] Eathel Bronw 11/04/2023 1 [facility] (MEDICARE REPLACEMENT/A DVANTAGE - HMO) [id number] Eatlos F Brown [id number] Eathel Brown 11/27/2023 1 [facility] (MEDICARE REPLACEMENT/A DVANTAGE - HMO) [id number] Eatlos F Brown [id number] Eathel Brown 01/15/2024 1 [facility] (MEDICARE REPLACEMENT/A DVANTAGE - HMO) [id number] Renata Gentile Brown [id number] Eathel Brown 04/01/2024 1 [facility] (MEDICARE REPLACEMENT/A DVANTAGE - HMO) [id number] Eatlos F Brown [id number] Eathel Brown Notes Date Note Type Note [...] 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 Echocardiogram from 08/02/2022 [...] Reactions ReviewedRobitussin Facial SwellingTamiflu Rash Vaccination and Aggbmzlgnpoj8606-86 Ygxyxanvz8032-99 Covid Filxsw9248-44 Covid Booster Yzmxgs8144-05 Tetanus Rkihafs8923-46 Umtgmzif5309-41 Joqkzjlnf2754-74 Prevnar 13 Surgical Yggnivj2741-43 Vpspinuxjtskqjc1048-01 Vaginal Hysterectomy Preventative Iuiragd1507/24/2023 ALBUMIN 4.0 G/DL01/25/2014 COLONOSCOPY (10 YEARS) MAMMOGRAM HAIC 5.9 % Social HistoryDoes not smokeDoes not drinkDoes office work Family HistoryMother 61 from hypertension and CVAFather in late 20's from TBOne brother living ASHD and CABGTwo sisters both both hx of CVA(2) Adarsh Tan MD [address] [employer], [employer], [place], [address], [employer] 08/15/2023 11:04:21 4 text/html Pt RTC for routine nail care, incurvated nails both feet. 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 Echocardiogram from 08/02/2022 [...] medications: Eliquis. Rate control: rapid ventricular response [id number] Criteria: congestive heart failure, Age > 75 [...] Reactions ReviewedRobitussin Facial SwellingTamiflu Rash Vaccination and Vbdcpykyueew9049-61 Kqfanqsps8912-65 Covid Sdkoel1249-43 Covid Booster Vhtqmp1121-23 Tetanus Kpwroyr7331-90 Qodxqqhi4277-72 Sranbziju2909-41 Prevnar 13 Gc Surgical Cjobfjx6458-31 Vczwjzfcasqfrhi0726-75 Vaginal Hysterectomy Preventative Testing( ) 07/24/2023 Albumin [...] Reactions ReviewedRobitussin Facial SwellingTamiflu Rash Vaccination and Pqoxajxswmdh7927-62 Lyxrbwqay6831-52 Covid Alzhnu0220-74 Covid Booster Voxwqg7731-79 Tetanus Hkwnlsc1055-72 Ivmhuxfb2035-74 Nsewfnjzm1746-46 Prevnar 13 Gc Surgical Cwsrktd4546-00 Rmgozibugybjppp9549-69 Vaginal Hysterectomy Preventative Testing( ) 07/24/2023 Albumin [...] 43 0-130 MG/DL Adarsh Tan MD [address] [facility], [facility] [address], [place], [address], [facility] [employer] 11/27/2023 11:42:21 4 text/html Patient Name: Liliane [...] 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 Echocardiogram from 08/02/2022 [...] Succinate Er. Rate control: controlled ventricular response [id number] Criteria: Age > 75 and and considered [...] Reactions ReviewedRobitussin Facial SwellingTamiflu Rash Vaccination and Jewkksgbbrrk6113-23 Salqcmgkd3996-08 Covid Vjfkeu9282-28 Covid Booster Gvrrhv0869-50 Tetanus Bkycrad9452-24 Qavgvuyr5262-44 Roujgxekz6128-50 Prevnar 13 Gc Surgical Rmkvluc2412-84 Lt. Femur Open Reduction Ndkbavmb1764-90 Uocbjedqrmcebfs2790-73 Vaginal Hysterectomy Preventative Testing( ) 11/27/2023 Albumin 3.9 G/DL( ) 01/25/2014 Colonoscopy (10 Years) 01/26/2024( ) 12/10/2013 Mammogram 12/11/2015( ) 09/20/2004 HAIC 5.9 % Social HistoryDoes not smokeDoes not drinkDoes office work Family HistoryMother 61 from hypertension and CVAFather in late 20's from TBOne brother living ASHD and CABGTwo sisters both both hx of CVA(2) Adarsh Tan MD [address] [facility], [facility] [address], [place], [address], [facility] [place] [employer] 01/15/2024 11:30:45 4 text/html Patient Name: Liliane [...] 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 Echocardiogram from 08/02/2022 [...] specific medication. Rate control: controlled ventricular response [id number] Criteria: hypertension, Age > 75 and and [...] COVID PFIZER(X) 2021-02 COVID BOOSTER PFIZER Surgical Kgjxfqm8557-35 Lt. Femur Open Reduction Kywcbaln4564-44 Vedwvpribfwtxaa4341-05 Vaginal Hysterectomy Preventative Testing( ) 11/27/2023 Albumin [...] >1000 239-931 PG/ML Adarsh Tan MD [address] [facility], [facility] [address], [place], [address], [place] [facility] 04/01/2024 11:59:12 OBGyn Episode No OBEpisode recorded.
--- OUTSIDE RECORDS SUMMARY | 2024-07-01 17:30 | XMS_ITS | Encounter Summary ---
Author Organization [facility] ABEL Lopez [facility] Address [address] [place] [address] Care Team Providers Care Food Taster Name Role Phone Unavailable Primary Care Provider Unavailabl e Reason for Referral * Radiology Services (Routine) - Closed Specialty Diagnoses / Procedures Referred By Contac t Referred To Contact Diagnoses Other secondary thrombocytopenia Procedures US ABDOMEN COMPLETE Antwan Irvin MD [address] [facility] [address] [place] [address] Phone: tel: fax: [place] [phone] Referral ID Status Reason Start Date Expiration Date V isits Requested Visits Authorized [id number] Closed [facility] CTS 07/01/2024 08/01/2025 1 1 Reason for Visit * Reason Comments Establish Care Encounter Details Date Type Department Care Team (Late st Contact Info) Description 07/01/2024 3:00 PM CDT Office Visit [facility] Oncology and Hematology [address] [facility] [address] [place] [address] Antwan Irvin MD [address] [place] [address] Chronic anemia (Primary Dx); Other secondary thrombocytopenia Social History Tobacco Use Types Packs/Day Years Used Date Smoking Tobacco: Never Smokeless Tobacco: Never Alcohol Use Standard Drinks/Week Comments Yes 0 (1 standard drink = 0.6 oz pur e alcohol) Occasionally Comments Unknown Sex and Gender Information Value Date Recorded Sex Assigned at Not on file 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 Gender Identity Not on file Sexual Orientation Not on file documented as of this encounter Last Filed Vital Signs Vital Sign Reading Time Taken Comments Blood Pressure 129/75 07/01/2024 3:09 PM CDT Pulse 79 07/01/2024 3:09 PM CDT Temperature 35.8 C (96.4 F) 07/01/2024 3:09 PM CDT Respiratory Rate 14 07/01/2024 3:09 PM CDT Oxygen Saturation 94% 07/01/2024 3:09 PM CDT Inhaled Oxygen Concentration - - Weight 52.4 kg (115 lb 9.6 oz) 07/01/2024 3:09 P M CDT Height 165.1 cm (5' 5 ) 07/01/2024 3:09 PM CDT Body Mass Index 19.24 07/01/2024 3:09 PM CDT documented in this encounter Progress Notes * Antwan Irvin MD - 07/01/2024 3:28 PM CDT Hematology-oncology consult Note Requesting Physician Adarsh Tan MD Primary Care Physician No primary care provider on file. Problem list There is no problem list on file for this patient. Previous TREATMENT ? Measurable Disease ? Reason for Visit Renata Brown is a 89 y.o. female who was referred for consultation for thrombocytopenia. History of present illness This is a pleasant 89-year-old female with history of atrial fibrillation, hypertension, hypothyroidism, hyperlipidemia and dementia referred to me for thrombocytopenia found on the routineblood test couple of times with the primary physician. Her labs from April 2024 showed platelet count of 88,000. She denies any bleeding but does bruises easily. She has been complaining of tiredness and fatigue with lightheadedness and dizziness. Her weight and appetite stable. She drinks wine sometimes with the dinner. Denies any other new complaints. Past Medical History Past Medical History: Diagnosis Date A-fib (CMS/HCC) Hyperlipidemia Hypertension Hypothyroidism Dementia Surgical History Past Surgical History: Procedure Laterality Date HX HIP SURGERY 2023 HX HYSTERECTOMY Medications Current Outpatient Medications Medication Sig Dispense Refill furosemide (LASIX) 20 mg tablet Take 20 mg by mouth. donepeziL (ARICEPT) 5 mg tablet Take 5 mg by mouth daily. benzonatate (TESSALON) 200 mg capsule Take 1 Capsule by mouth 3 times daily. azithromycin (ZITHROMAX) 250 mg tablet TAKE 2 TABLETS BY MOUTH TODAY, THEN TAKE 1 TABLET DAILY FOR 4 DAYS DIRECTED simvastatin (ZOCOR) 20 mg tablet Take 20 mg by mouth daily with supper. metoprolol tartrate (LOPRESSOR) 100 mg tablet Take 100 mg by mouth 2 times daily. CALCIUM CITRATE-VITAMIN D3 ORAL Take by mouth. CYANOCOBALAMIN, VITAMIN B-12, ORAL Take 1,000 mcg by mouth daily. traZODone (DESYREL) 50 mg tablet daily at bedtime. meclizine (ANTIVERT) 25 mg tablet 2 times daily. levothyroxine 75 mcg tablet Take 75 mcg by mouth. OXYBUTYNIN CHLORIDE ORAL Take 1 Tablet by mouth daily. No current facility-administered medications for this visit. Allergies No Known Allergies Immunizations: There is no immunization history on file for this patient. Family History Family History Problem Relation Name Age of Onset No Known Problems Father Heart Disease Mother Heart Disease Brother No Known Problems Sister Heart Disease Sister No Known Problems Child No Known Problems Child Heart Disease Child Social History Social History Tobacco Use Smoking status: Never Smokeless tobacco: Never Substance Use Topics Alcohol use: Yes Comment: Occasionally Review of Systems Constitutional: Patient did not mention fever; no night sweats; no anorexia; complain of tiredness and fatigue NEENT: Patient did not mention headache; no change in vision; no change in hearing; no sore throat;no dysphagia Respiratory: Patient did not mention shortness of breath; no pleuritic chest pain; no cough; no hemoptysis Cardiac: Patient did not mention cardiac-like chest pain; no palpitations; no orthopnea; no PND; noDOE Breasts: Patient did not mention tenderness; no masses GI: Patient did not mention abdominal pain; no nausea; no vomiting; no diarrhea; no hematochezia; no melena : Patient did not mention dysuria; no frequency; no hesitancy; no hematuria 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 No signs of infection or swelling. Eyes: PERRL, conjunctiva normal HEENT: Atraumatic, external ears normal, nose normal, oropharynx moist, no pharyngeal exudates. no sinus tenderness Neck- normal range of motion, no tenderness, supple Respiratory: No respiratory distress, normal breath sounds, no rales, no wheezing Cardiovascular: Normal rate, normal rhythm, no murmurs, no gallops, no rubs GI: Soft, nondistended, normal bowel sounds, nontender, no splenomegaly, no hepatomegaly, no mass, no rebound, no guarding : No costovertebral angle tenderness Musculoskeletal: No edema, no tenderness, no deformities. Back- no tenderness Integument: Well hydrated, no rash, Digits and nails inspection normal Lymphatic: No lymphadenopathy noted Neurologic: Alert & oriented x 3, CN 2-12 normal, normal motor function, normal sensory function, no focal deficits noted Psychiatric: Speech and behavior appropriate ? labs No results found for this or any previous visit (from the past 24 hours). Labs from May 20, 2024 showed WBC 5.1 hemoglobin 12.9 MCV 100 platelet count 88,000 MPV 13.9 neutrophils 65% lymphocyte 22% Pathology ? Imaging & Other Studies Performance Status? Assessment / Plan: ? Thrombocytopenia. Patient is a pleasant 89-year-old female with history of dementia, atrial fibrillation, hypothyroidism, hyperlipidemia and hypertension referred to me for thrombocytopenia. She has some easy bruising without much bleeding issues. She has been taking Eliquis for atrial fib rillation.I have discussed the differential diagnosis of thrombocytopenia with the patient that includes nutritional deficiency like vitamin B-12 and folic acid deficiency and iron deficiency. Other possibilities include drug induced thrombocytopenia, autoimmune thrombocytopenia, bone marrow disorders like myelodysplasia and splenic sequestration with possible liver disease. I will order the workup that would include abdominal ultrasound, vitamin B12 and folic acid levels and iron studies. I will repeat CBC with differential and CMP. I will also order platelet antibodies. I will discuss the results with patient and the daughter in 2 weeks. I answered all the questions to patient's satisfaction. Atrial fibrillation. Patient is on Eliquis 5 mg twice a day. I have recommended her to discuss withDr. Homar Greenwood for dose reduction due to thrombocytopenia. Hyperlipidemia. Patient is on Zocor. Hypertension. She is on metoprolol. Hypothyroidism. Patient is on levothyroxine. Dementia. Patient is on Aricept. Thank you very much for allowing me to participate in Renata Brown's evaluation and management. Please feel free to contact if I can be of any further assistance in your patient???s care requiring hematology or oncology evaluation. Sincerely, ? ? Antwan Irvin M.D. cell TOBACCO COUNSELING She is not a tobacco/nicotine user. Antwan Irvin MD ,07/01/2024 3:28 PM ? Total time spent 60 minutes, two third of the total time spent counseling patient [id number]. CC:?Adarsh Tan MD documented in this encounter Plan of Treatment Upcoming Encounters Date Type Department Care Team (Late st Contact Info) Description 07/16/2024 4:00 PM CDT Telephone Check Up [facility] Oncology and Hematology - [place] [address] [facility] [address] [place] [address] Antwan Irvin MD [address] [facility] [address] [place] [address] Scheduled Orders Name Type Priority Associated Diagnoses Orde r Schedule CBC WITH DIFFERENTIAL Lab Stat Chronic anemia Expected: 07/01/2024, Expires: 07/01/2025 COMPREHENSIVE METABOLIC PANEL Lab Stat Chronic anemia Expected: 07/01/2024, Expires: 07/01/2025 FERRITIN Lab Routine Chronic anemia Expected: 07/01/2024, Expires: 07/01/2025 IRON, TIBC, AND PERCENT SATURATION Lab Routine Chronic anemia Expected: 07/01/2024, Expires: 07/01/2025 VITAMIN B12 AND FOLATE Lab Routine Chronic anemia Expected: 07/01/2024, Expires: 07/01/2025 METHYLMALONIC ACID Lab Routine Chronic anemia Expected: 07/01/2024, Expires: 07/01/2025 TRANSFERRIN RECEPTOR TFR SOLUBLE Lab Routine Chronic anemia Expected: 07/01/2024, Expires: 07/01/2025 US ABDOMEN COMPLETE Imaging Routine Other secondary thrombocytopenia 1 Occurrences starting 07/01/2024 until 07/01/2025 MISCELLANEOUS LAB TEST Lab Routine Other secondary thrombocytopenia Expected: 07/01/2024, Expires: 07/01/2025 documented as of this encounter Visit Diagnoses Diagnosis Chronic anemia- Primary Anemia, unspecified Other secondary thrombocytopenia documented in this encounter
--- OUTSIDE RECORDS SUMMARY | 2024-07-01 17:30 | XMS_ITS | Clinical Summary ---
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 Medical Group Cardiology [address] [address] [address] [place] [address] Homar Greenwood MD Permanent atrial fibrillation (HCC) [...] Comments Blood Pressure 130/70 05/28/2024 11:32 AM IN HOME AIDE Pulse 72 05/28/2024 11:32 AM IN HOME AIDE Temperature - - Respiratory Rate - - Oxygen Saturation 96% 05/28/2024 11:32 AM IN HOME AIDE Inhaled Oxygen Concentration - - Weight 52.7 kg (116 lb 1.6 oz) 05/28/2024 11:32 AM IN HOME AIDE Height 165.1 cm (5' 5 ) 05/28/2024 11:32 AM IN HOME AIDE Body Mass Index 19.32 05/28/2024 11:32 AM IN HOME AIDE Plan of Treatment Health Maintenance Due Date [...] 11/19/2018, 12/2014 Insurance MEDICARE SOLUTIONS Care Teams Corporate Legal Manager Relationship Specialty Start Date End Date Adarsh Tan MD [address] [place] [address] PCP - General Internal Medicine 10/12/20
--- OUTSIDE RECORDS SUMMARY | 2024-07-01 17:30 | XMS_ITS | CONTINUITY OF CARE DOCUMENT ---
Author Name [email or web address] Address Unknown Organization [facility] Address [address] [facility] [address] [place] [address] Phone [phone] Care Team Providers Care Environmental Conservation Officer Name Role Phone Mehul MCKAY, Charly Unavailable CASANDRA MCKAY, YOLANDA Unavailable YOLANDA GUAJARDO MD Unavailable [phone] PROBLEMS Condition Status Date Provider Notes Chest pain active Charly Carver MD INSURANCE PROVIDERS Payer name Policy type / Coverage type [place] red green party ID [employer] [id number] [place] MEDICARE Medicare [id number] HISTORY OF PROCEDURES Procedure Date Procedure Name Provider Procedure Notes S tatus Cardiolite, 2 units Charly Carver MD completed SPECT Images Charly Carver MD complet ed Stress EKG Charly Carver MD completed Holter, 24 or 48 Charly Carver MD com pleted
--- OUTSIDE RECORDS SUMMARY | 2024-07-01 17:30 | XMS_ITS | Encounter Summary ---
Author Organization [facility] ABEL Lopez [employer] Address [address] [place] [address] Care Team Providers Care Casing Worker Name Role Phone Unavailable Primary Care Provider Unavailabl e Encounter Details Date Type Department Care Team (Late Contact Info) Description 07/01/[address] 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 Oncology and Hematology - [place] [address] [place] [address] Antwan Irvin MD [address] [employer] [address] [place] [address] documented as of this encounter Visit Diagnoses Not on filedocumented in this encounter
--- OUTSIDE RECORDS SUMMARY | 2024-07-01 17:30 | XMS_ITS | Referral Summary ---
Author Organization [facility] [address] [facility] [address] Address [address] [place] [address] Care Team Providers Care Substitute Nurse Name Role Phone Adarsh Tan MD Primary Care Provider Encounters Date Type Department Care Team Description 05/28/2024 11:30 AM WIRE DROPPER Office Visit [facility] Medical [facility] Cardiology [address] [facility] [address] [place] [address] Homar Greenwood MD Permanent atrial [...] 1 tablet (75 mcg total) by mouth biofuels production technician before breakfast Active metoprolol XL (TOPROL-XL) 100 [...] Comments Blood Pressure 130/70 05/28/2024 11:32 AM WIRE DROPPER Pulse 72 05/28/2024 11:32 AM WIRE DROPPER Temperature - - Respiratory Rate - - Oxygen Saturation 96% 05/28/2024 11:32 AM WIRE DROPPER Inhaled Oxygen Concentration - - Weight 52.7 kg (116 lb 1.6 oz) 05/28/2024 11:32 AM WIRE DROPPER Height 165.1 cm (5' 5 ) 05/28/2024 11:32 AM WIRE DROPPER Body Mass Index 19.32 05/28/2024 11:32 AM WIRE DROPPER Plan of Treatment Not on file Insurance MEDICARE SOLUTIONS [facility] MEDICARE Address: [address] [address] MEDICARE SOLUTIONS [facility] MEDICARE Address: [id number] [place] [address] Care Teams Substitute Nurse Relationship Specialty Start Date End Date Adarsh Tan MD [address] [place] [address] PCP - General Internal Medicine 10/12/20
--- OUTSIDE RECORDS SUMMARY | 2024-07-01 17:30 | XMS_ITS | Clinical Summary ---
Author Organization [facility] Paula andrew Mundo Address [address] [place] [address] Care Team Providers Care Physical Therapy Assistant Instructor Name Role Phone Unavailable Primary Care Provider Unavailabl e Allergies No known active allergies Medications traZODone (DESYREL) 50 mg tablet daily at bedtime. Active meclizine (ANTIVERT) 25 mg tablet 2 times daily. Active levothyroxine 75 mcg tablet Take 75 mcg by mouth. Active furosemide (LASIX) 20 mg tablet Take 20 mg by mouth. 08/02/2022 Active donepeziL (ARICEPT) 5 mg tablet Take 5 mg by mouth daily. 04/13/2024 Active benzonatate (TESSALON) 200 mg capsule Take 1 Capsule by mouth 3 times daily. 04/29/2024 Active azithromycin (ZITHROMAX) 250 mg tablet TAKE 2 TABLETS BY MOUTH TODAY, THEN TAKE 1 TABLET DAILY FOR 4 DAYS DIRECTED 04/29/2024 Active OXYBUTYNIN CHLORIDE ORAL Take 1 Tablet by mouth daily. Active simvastatin (ZOCOR) 20 mg tablet Take 20 mg by mouth daily with supper. Active metoprolol tartrate (LOPRESSOR) 100 mg tablet Take 100 mg by mouth 2 times daily. Active CALCIUM CITRATE-VITAMIN D3 ORAL Take by mouth. Active CYANOCOBALAMIN, VITAMIN B-12, ORAL Take 1,000 mcg by mouth daily. Active Active Problems No known active problems Encounters Date Type Department Care Team Description 07/01/2024 3:00 PM CDT Office Visit [facility] Oncology and Hematology [facility] [address] [place] [address] Antwan Ivrin MD Chronic anemia (Primary Dx); Other secondary thrombocytopenia 07/01/2024 Abstract [facility] Oncology and Hematology [place] [address] [place] [address] Antwan Irvin MD from Last 3 Months Family History Medical History Relation Name Comments Heart Disease Brother No Known Problems Child 1 No Known Problems Child 2 Heart Disease Child 3 No Known Problems Father Heart Disease Mother No Known Problems Sister 1 Heart Disease Sister 2 Relation Name Status Comments Brother Child 1 Alive Child 2 Alive Child 3 Alive Father Mother Sister 1 Sister 2 Social History Tobacco Use Types Packs/Day Years Used Date Smoking Tobacco: Never Smokeless Tobacco: Never Alcohol Use Standard Drinks/Week Comments Yes 0 (1 standard drink = 0.6 oz pur e alcohol) Occasionally Comments Unknown Sex and Gender Information Value Date Recorded Sex Assigned at Not on file 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 Gender Identity Not on file Sexual Orientation [...] Mass Index 19.24 07/01/2024 3:09 PM CDT Plan of Treatment Upcoming Encounters Date Type Department Care Team (Late st Contact Info) Description 07/16/2024 4:00 PM CDT Telephone Check Up [facility] Oncology and Hematology - [place] [address] [email or web address] [address] [place] [address] Antwan Irvin MD [address] [facility] [address] [place] [address] Health Maintenance Due Date Last Done Comments DTAP/TDAP/TD VACCINES (1 - Tdap) 1954 PNEUMOCOCCAL VACCINE 50+ YEARS (1 of 1 - PCV) 06/12/18 86 ZOSTER VACCINE (1 of 2) 1985 OSTEOPOROSIS SCREENING 2000 RSV VACCINE (60+ or ) (1 - 1-dose 75+ series) 2010 INFLUENZA VACCINE (#1) 2023 [place] Prev entative Visit/Annual Wellness Visit 04/22/2024 Insurance [facility] [id number] [facility] Address: [facility] [address] [place] [id number]
[2024-07-01 17:45] LABS: Vitamin B12 > 1000.0 pg/mL (239-931)
== END 2024-07-01 15:36 | disposition home or self-care (01) ==
LOC: ANHLAB 15:36
PROVIDERS: PCP Internal Medicine; Visit Provider Internal Medicine Hematology & Oncology
DX: D64.9 Anemia, unspecified (principal); D69.59 Other secondary thrombocytopenia
CPT/HCPCS: 36415; 80053; 82607; 82728; 82746; 83540; 83550; 83921; 84238; 85025; 86023

== ENCOUNTER 2024-07-11 07:26 | Outpatient (CLI) | payer MEDICARE, SELFPAY ==
--- NOTE | ~2024-07-11 | US_ITS ---
US abdomen complete EXAMINATION: US Abdomen Complete INDICATION: Secondary thrombocytopenia PROCEDURE: Realtime High Resolution abdomen ultrasound. COMPARISON: CT dated 06/25/2024 FINDINGS: Gallbladder is surgically absent. Common bile duct measures 12 mm. Liver echotexture within normal limits without focal mass. Pancreas within normal limits. Pancreati c tail is obscured by bowel gas. Spleen is unremarkeable. Renal echotexture is within normal limits bilaterally without hydronephrosis, contour deforming mass or renal stone. There is bilateral renal c ortical thinning. Right kidney measures 9 cm. Left kidney measures 9.2 cm. Visualized aspects of the aorta and IVC are within normal limits. Portal vein is patent. No sonograph ic Souza's sign indicated by the technologist. IMPRESSION: 1: Status post cholecystectomy with expected prominence of the bile ducts. 2: Mild bilateral renal cortical thinning. Reviewed, dictated and finalized at location B.
--- OUTSIDE RECORDS SUMMARY | 2024-07-11 07:30 | XMS_ITS | Clinical Summary ---
Author Organization [facility] [address] Address [address] [place] [address] Care Team Providers Care Roller Inspector Name Role Phone Adarsh Tan MD Primary [...] 1 tablet (75 mcg total) by mouth assembler erector before breakfast Active metoprolol XL (TOPROL-XL) 100 [...] Department Care Team Description 05/28/2024 11:30 AM GAS PLANT SPECIALIST Office Visit [facility] Medical Group Cardiology [address] [address] [address] [place] [address] Homar Greenwood MD Permanent atrial fibrillation (HCC) [...] Comments Blood Pressure 130/70 05/28/2024 11:32 AM GAS PLANT SPECIALIST Pulse 72 05/28/2024 11:32 AM GAS PLANT SPECIALIST Temperature - - Respiratory Rate - - Oxygen Saturation 96% 05/28/2024 11:32 AM GAS PLANT SPECIALIST Inhaled Oxygen Concentration - - Weight 52.7 kg (116 lb 1.6 oz) 05/28/2024 11:32 AM GAS PLANT SPECIALIST Height 165.1 cm (5' 5 ) 05/28/2024 11:32 AM GAS PLANT SPECIALIST Body Mass Index 19.32 05/28/2024 11:32 AM GAS PLANT SPECIALIST Plan of Treatment Health Maintenance Due Date [...] Pneumococcal vaccine 65+ Completed 11/19/2018, 12/2014 Insurance Care Teams Roller Inspector Relationship Specialty Start Date End Date Adarsh Tan MD [address] [facility] [place] [address] PCP - General Internal Medicine 10/12/20
--- OUTSIDE RECORDS SUMMARY | 2024-07-11 07:30 | XMS_ITS | Clinical Summary ---
Author Organization [facility] Paula andrew [facility] Address [address] [address] Care Team Providers Care Manager Paid Name Role Phone Unavailable Primary Care Provider [...] Encounters Date Type Department Care Team Description 07/08/2024 External Device Data ST[facility] ABSTRACTION Provider, Abstract 07/08/2024 External Device Data ST[facility] ABSTRACTION Provider, Abstract 07/08/[address] [facility] Oncology and Hematology - [place] [address] [facility] [place] [address] Antwan Irvin MD 07/07/2024 External Device Data ST[facility] ABSTRACTION Provider, Abstract 07/02/[address] [facility] Oncology and Hematology - [place] [address] [place] [address] Antwan Irvin MD 07/01/2024 3:00 PM CDT Office Visit [facility] Oncology and Hematology - [place] [address] [place] [address] Antwan Irvin MD Chronic anemia (Primary Dx); Other secondary thrombocytopenia 07/01/[address] 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 Oncology and Hematology - [place] [address] [facility] [address] [place] [address] Antwan Irvin MD [address] [facility] [address] [place] [address] Health Maintenance Due Date Last Done Comments DTAP/TDAP/TD VACCINES (1 - Tdap) 1954 PNEUMOCOCCAL VACCINE 50+ YEARS (1 of 1 - PCV) 06/12/18 86 ZOSTER VACCINE (1 of 2) 1985 OSTEOPOROSIS SCREENING 2000 RSV VACCINE (60+ or ) (1 - 1-dose 75+ series) 2010 INFLUENZA VACCINE (#1) 2023 [place] Prev entative Visit/Annual Wellness Visit 04/22/2024 Procedures Procedure Name Priority Date/Time Associated Diagnosis Comments VITAMIN B12 LEVEL Routine 07/01/2024 4:1 5 PM CDT COMPREHENSIVE METABOLIC PANEL Routine 07/01/2024 4:14 PM CDT TRANSFERRIN RECEPTOR TFR SOLUBLE Routine 07/01/2024 3:56 PM CDT from Last 3 Months Results * VITAMIN B12 LEVEL (07/01/2024 4:15 PM CDT) Blood Antwan Irvin MD CHEMISTRY ORDERABLES Final Resu lt * COMPREHENSIVE METABOLIC PANEL (07/01/2024 4:14 PM CDT) Blood Antwan Irvin MD CHEMISTRY ORDERABLES Final Resu lt * TRANSFERRIN RECEPTOR TFR SOLUBLE (07/01/2024 3:56 PM CDT) Blood Antwan Irvin MD CHEMISTRY ORDERABLES Final Resu lt from Last 3 Months Insurance [facility] [id number]
--- OUTSIDE RECORDS SUMMARY | 2024-07-11 07:30 | XMS_ITS | CONTINUITY OF CARE DOCUMENT ---
Author Name [email or web address] Address Unknown Organization [facility] Address [address] [address] [place] [address] Phone [phone] Care Team Providers Care Pure Culture Operator Name Role Phone Mehul MCKAY, Charly Unavailable CASANDRA MCKAY, YOLANDA Unavailable [phone] YOLANDA GUAJARDO MD Unavailable [phone] PROBLEMS Condition Status Date Provider Notes Chest pain active Charly Carver MD INSURANCE PROVIDERS Payer name Policy type / Coverage type [employer] red democrat ID [id number] [id number] [place] MEDIC[place] Medicare [id number] HISTORY OF PROCEDURES Procedure Date Procedure Name Provider Procedure Notes S tatus Cardiolite, 2 units Charly Carver MD completed SPECT Images Charly Carver MD complet ed Stress EKG Charly Carver MD completed Holter, 24 or 48 Charly Carver MD com pleted
--- OUTSIDE RECORDS SUMMARY | 2024-07-11 07:30 | XMS_ITS | Encounter Summary ---
Author Organization [facility] ABEL Lopez [facility] Address [address] [place] [address] Care Team Providers Care Client Development Manager Name Role Phone Unavailable Primary Care Provider Unavailabl e Encounter Details Date Type Department Care Team (Late Contact Info) Description 07/08/2024 Orders Only [facility] Oncology and Hematology - Jermaine Bijal [address] [place] [phone] Antwan Irvin MD [facility] [employer] [address] [place] [phone] Social History Tobacco Use Types Packs/Day Years Used Date Smoking Tobacco: Never Smokeless Tobacco: Never Alcohol Use Standard Drinks/Week Comments Yes 0 (1 standard drink = 0.6 oz pur e alcohol) Occasionally Comments Unknown Sex and Gender Information Value Date Recorded Sex Assigned at Not on file 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 Gender Identity Not on file Sexual Orientation Not on file documented as of this encounter Plan of Treatment Upcoming Encounters Date Type Department Care Team (Late Contact Info) Description 07/22/2024 4:00 PM CDT Telephone Check Up [facility] Oncology and Hematology Jermaine Bijal [address] [place] [phone] Antwan Irvin MD [facility] [employer] [address] [place] [phone] documented as of this encounter Procedures Procedure Name Priority Date/Time Associated Diagnosis Comments TRANSFERRIN RECEPTOR TFR SOLUBLE Routine 07/01/2024 3:56 PM CDT documented in this encounter Results * TRANSFERRIN RECEPTOR TFR SOLUBLE (07/01/2024 3:56 PM CDT) Blood us Antwan Irvin MD CHEMISTRY ORDERABLES Final Resu lt documented in this encounter Visit Diagnoses Not on filedocumented in this encounter
--- OUTSIDE RECORDS SUMMARY | 2024-07-11 07:30 | XMS_ITS | Data Portability ---
Author Organization [facility], Main Office Address [address] [place] [address] Assessment No assessment recorded. Plan of Treatment Reminders Order Date Submit Date Provider Last Modified By Organization Details Last Modified Time Details Appointments None recorded . Lab lipid panel, serum 024 04/01/20 24 [facility], [address] [place], [address], 4 19:58:48 CMP, serum or plasma 024 04/01/20 24 [facility], [address] [place], [address], 4 19:58:50 TSH, serum or plasma 024 04/01/20 24 [facility], [address] [place], [address], 4 19:58:54 T4, free, serum 024 04/01/20 24 [facility], [address] [place], [address], 4 19:58:53 CBC w/ auto diff 024 04/01/20 24 [facility], [address] [place], [address], 4 19:58:51 lipid panel, serum 024 11/27/19 24 [facility], [address] [place], [address], 4 16:32:30 CMP, serum or plasma 024 11/27/19 24 [facility], [address] [place], [address], 4 16:32:25 T4, free, serum 024 11/27/19 24 [facility], [address] [place], [address], 4 16:31:03 TSH, serum or plasma 024 11/27/19 24 [facility], [address] [place], [address], 4 16:45:53 CBC w/ auto diff 024 11/27/19 24 [facility], [address] [place], [address], 4 13:54:53 BMP, serum or plasma 024 11/27/19 24 [email or web address] [facility], [address] [place], [address], 4 17:15:58 Referral None recorded . Procedures None recorded . Surgeries None recorded . Imaging None recorded . Medication Orders None recorded . Patient TargetsNo targets recorded. Patient Instructions Encounter Date Encounter Id Patient Instructions Last Modified By Organization Details Last Modified Time 08/15/2023 [id number] Follow-up from emergency room for hypokalemia. The hypokalemia has been corrected up to 4.1 now. Will continue on current Rx follow at her regularly scheduled appointment in November. Keep Appointment: Sat 10:20 AM Vick Portions of the record may have been created with voice recognition software. Occasional wrong-word or hlmvz-o-cwrf substitutions may have occurred due to the inherent limitations of voice recognition software. Read the chart carefully and recognize, using context, where substitutions have occurred. [email or web address] Not available 08/15/2023 11:04:10 11/27/2023 [id number] Follow-up for history of congestive heart failure, [...] with voice recognition software. Occasional wrong-word or odzxg-q-qhib substitutions may have occurred due to the inherent limitations of voice recognition software. Read the chart carefully and recognize, using context, where substitutions have occurred. [email or web address] Not available 11/27/2023 11:41:50 01/15/2024 [id number] dementia rating scale-2* [email or web address] Not available 01/15/2024 11:30:41 alcohol misuse* [email or web address] Not available 01/15/2024 11:30:41 depression screening* [email or web address] Not available 01/15/2024 11:30:41 Timed Up and Go test (TUG)* [email or web address] Not available 01/15/2024 11:30:41 multi-dimensiona l health assessment questionnaire* [email or web address] Not available 01/15/2024 11:30:40 Personalized Hea lth [...] Screening with mammogram: No screening necessary Cervical/Uterine/Ov it Cancer Screening: No screening necessary Osteoporosis Screening: No screening necessary Date Screening Last Performed: Colon Cancer Screening: Colonoscopy No screening necessary Date Screening Last Performed: __2014__ Eye Disease Screening: Dementia Risk: Low I have no recommendations Depression Screening: Negative [email or web address] Not available 01/15/2024 11:12:41 Medicare wellnes s [...] a day Keep Appointment: Sat 10:30 AM Gray Portions of the record may have been created with voice recognition software. Occasional wrong-word or qmbhi-c-ddmy substitutions may have occurred due to the inherent limitations of voice recognition software. Read the chart carefully and recognize, using context, where substitutions have occurred. Not available 01/15/2024 11:30:23 04/01/2024 [id number] . Follow-up paroxysmal atrial fibrillation, hyperlipidemia, hypothyroidism [...] with voice recognition software. Occasional wrong-word or nfyee-t-tagt substitutions may have occurred due to the inherent limitations of voice recognition software. Read the chart carefully and recognize, using context, where substitutions have occurred. Created: Adarsh Tan M.D. 04.01.2024 10:58 AM [email or web address] Not available 04/01/2024 11:58:56 Reason for Referral None Reported. Results Created Date Observation Date Name Description Value Unit Range Abnormal Flag Note LastModifiedBy Organization Detail LastModifiedTime 07/24/19 24 07/24/2023 CBC/C OMPLE TE BLD COUNT W/DIF F white blood cells 6.6 x10'3 /uL 4.2-10 .8 Not Available [facility] (Lab) [address] [place], [address], 07/24/2023 14:19:50 07/24/19 24 07/24/2023 CBC/C OMPLE TE BLD COUNT W/DIF F red blood cells 4.10 x10'6 /uL 3.80-[address] [facility] (Lab) [address] [place], [address], 07/24/2023 14:19:50 07/24/19 24 07/24/2023 CBC/C OMPLE TE BLD COUNT W/DIF F hemoglobin 12.3 g/dL 12.0-[address] [facility] (Lab) [address] [place], [address], 07/24/2023 14:19:50 07/24/19 24 07/24/2023 CBC/C OMPLE TE BLD COUNT W/DIF F hematocrit 38.5 % 35.7-[address] [facility] (Lab) [address] [place], [address], 07/24/2023 14:19:50 07/24/19 24 07/24/2023 CBC/C OMPLE TE BLD COUNT W/DIF F mean red cell volume 93.9 fL 82.0-[address] [facility] (Lab) [address] [place], [address], 07/24/2023 14:19:50 07/24/19 24 07/24/2023 CBC/C OMPLE TE BLD COUNT W/DIF F mean red cell hemoglobin 30.0 pg 27.0-[address] [facility] (Lab) [address] [place], [address], 07/24/2023 14:19:50 07/24/19 24 07/24/2023 CBC/C OMPLE TE BLD COUNT W/DIF F mean RBC HGB concentratio n 31.9 g/dL 31.0-3 6.0 Not Available [facility] (Lab) [address] [place], [address], 07/24/2023 14:19:50 07/24/19 24 07/24/2023 CBC/C OMPLE TE BLD COUNT W/DIF F red cell distribution width 13.5 % 11.8-[address] [facility] (Lab) [address] [place], [address], 07/24/2023 14:19:50 07/24/19 24 07/24/2023 CBC/C OMPLE TE BLD COUNT W/DIF F platelets 108 x10'3 /uL 150-[address] [facility] (Lab) [address] [place], [address], 07/24/2023 14:19:50 07/24/19 24 07/24/2023 CBC/C OMPLE TE BLD COUNT W/DIF F neutrophils 69.6 % 39.0-[address] [facility] (Lab) [address] [place], [address], 07/24/2023 14:19:50 07/24/19 24 07/24/2023 CBC/C OMPLE TE BLD COUNT W/DIF F lymphocytes 17.1 % 16.0-[address] [facility] (Lab) [address] [place], [address], 07/24/2023 14:19:50 07/24/19 24 07/24/2023 CBC/C OMPLE TE BLD COUNT W/DIF F monocytes 10.0 % 5.0-[address] [facility] (Lab) [address] [place], [address], 07/24/2023 14:19:50 07/24/19 24 07/24/2023 CBC/C OMPLE TE BLD COUNT W/DIF F eosinophils 2.3 % 1.0-7. 0 Not Available [facility] (Lab) [address] [place], [address], 07/24/2023 14:19:50 07/24/19 24 07/24/2023 CBC/C OMPLE TE BLD COUNT W/DIF F basophils 0.5 % 0.0-2. [address] [facility] (Lab) [address] [place], [address], 07/24/2023 14:19:50 07/24/19 24 07/24/2023 CBC/C OMPLE TE BLD COUNT W/DIF F immature granulocytes 0.5 % 0.00-[address] [facility] (Lab) [address] [place], [address], 07/24/2023 14:19:50 07/24/19 24 07/24/2023 CBC/C OMPLE TE BLD COUNT W/DIF F neutrophils, absolute count 4.61 x10'3 /uL 1.5-8. [address] [facility] (Lab) [address] [place], [address], 07/24/2023 14:19:50 07/24/19 24 07/24/2023 CBC/C OMPLE TE BLD COUNT W/DIF F lymphocytes, absolute count 1.13 x10'3 /uL 1.07-[address] [facility] (Lab) [address] [place], [address], 07/24/2023 14:19:50 07/24/19 24 07/24/2023 CBC/C OMPLE TE BLD COUNT W/DIF F monocytes, absolute count 0.66 x10'3 /uL 0.29-[address] [facility] (Lab) [address] [place], [address], 07/24/2023 14:19:50 07/24/19 24 07/24/2023 CBC/C OMPLE TE BLD COUNT W/DIF F eosinophils, absolute count 0.15 x10'3 /uL 0.02-[address] [facility] (Lab) [address] [place], [address], 07/24/2023 14:19:50 07/24/19 24 07/24/2023 CBC/C OMPLE TE BLD COUNT W/DIF F basophils, absolute count 0.03 x10'3 /uL 0.01-[address] [facility] (Lab) [address] [place], [address], 07/24/2023 14:19:50 07/24/19 24 07/24/2023 CBC/C OMPLE TE BLD COUNT W/DIF F immature granulocytes ,absolute 0.03 x10'3 /uL 0.00-[address] [facility] (Lab) [address] [place], [address], 07/24/2023 14:19:50 07/24/19 24 07/24/2023 CBC/C OMPLE TE BLD COUNT W/DIF F nucleated red blood cells 0.0 % -0 Not Available [facility] (Lab) [address] [place], [address], 07/24/2023 14:19:50 07/24/19 24 07/24/2023 CBC/C OMPLE TE BLD COUNT W/DIF F NRBC# 0.00 x10'3 /uL Not Available [facility] (Lab) [address] [place], [address], 07/24/2023 14:19:50 07/24/19 24 07/24/2023 TSH thyroid-stim ulating hormone 0.124 uIU/m L 0.465- 4.[address] [facility] (Lab) [address] [place], [address], 07/24/2023 17:56:05 07/24/19 24 07/24/2023 T4 FREE free T4 1.87 NG/dL 0.78-[address] [facility] (Lab) [address] [place], [address], 07/24/2023 17:56:25 07/24/19 24 07/24/2023 LIPID PANEL cholesterol 106 mg/dL 140-19 9 low NIH BECKI NSUS RECOM MENDA TION FOR MADELEINE STERO L: ADULT CHILD LOW RISK: <200 <170 BORDE RLINE : <200- 239 ----- HIGH RISK: >240 >[address] [facility] (Lab) [address] [place], [address], 07/24/2023 18:02:47 07/24/19 24 07/24/2023 LIPID PANEL triglyceride s 124 mg/dL 0-150 NIH BECKI NSUS REPOR T RECOM MENDA TION FOR TRIGL YCERI HARLEY: ADULT CHILD LOW RISK: <150 ----- BODER LINE: 150-1 99 ----- HIGH RISK: >200 ----- Not Available [facility] (Lab) [address] [place], [address], 07/24/2023 18:02:47 07/24/1907/24/2023 LIPID PANEL HDL cholesterol 38 mg/dL 40- low Not Available [facility] (Lab) [address] [place], [address], 07/24/2023 18:02:47 07/24/19 24 07/24/2023 LIPID PANEL [...] WILL NOT BE REPOR YUSUF. Not Available [facility] (Lab) [address] [place], [address], 07/24/2023 18:02:47 07/24/19 24 07/24/2023 COMPR EHENS ITALO METAB OLIC PANEL sodium 140 mmol/ L 137-14 5 Not Available [facility] (Lab) [address] [place], [address], 07/24/2023 18:02:52 07/24/19 24 07/24/2023 COMPR EHENS ITALO METAB OLIC PANEL potassium 3.6 mmol/ L 3.5-5. 1 Not Available [facility] (Lab) [address] [place], [address], 07/24/2023 18:02:52 07/24/19 24 07/24/2023 COMPR EHENS ITALO METAB OLIC PANEL chloride 108 mmol/ L 98-[address] [facility] (Lab) [address] [place], [address], 07/24/2023 18:02:52 07/24/19 24 07/24/2023 COMPR EHENS ITALO METAB OLIC PANEL carbon dioxide 28 mmol/ L 22-[address] [facility] (Lab) [address] [place], [address], 07/24/2023 18:02:52 07/24/19 24 07/24/2023 COMPR EHENS ITALO METAB OLIC PANEL anion gap 7.6 mmol/ L 14-[address] [facility] (Lab) [address] [place], [address], 07/24/2023 18:02:52 07/24/19 24 07/24/2023 COMPR EHENS ITALO METAB OLIC PANEL glucose 101 mg/dL 70-[address] [facility] (Lab) [address] [place], [address], 07/24/2023 18:02:52 07/24/19 24 07/24/2023 COMPR EHENS ITALO METAB OLIC PANEL BUN 11 mg/dL 8-[address] [facility] (Lab) [address] [place], [address], 07/24/2023 18:02:52 07/24/19 24 07/24/2023 COMPR EHENS ITALO METAB OLIC PANEL creatinine 0.80 mg/dL 0.66-[address] [facility] (Lab) [address] [place], [address], 07/24/2023 18:02:52 07/24/19 24 07/24/2023 COMPR EHENS ITALO METAB OLIC PANEL GFR >60 Refer ence Range : [place] ge GFR Healt hy Adult : >60 [...] calcu lator is avail able on the [facility] websi te: [email or web address] :[email or web address] [email or web address] john/pr ofess ional s/kdo qi/gf r_cal culat or Not Available [facility] (Lab) [address] [place], [address], 07/24/2023 18:02:52 07/24/19 24 07/24/2023 COMPR EHENS ITALO METAB OLIC PANEL alkaline phosphatase 84 U/L 38-126 Not Available [facility] (Lab) [address] [place], [address], 07/24/2023 18:02:52 07/24/19 24 07/24/2023 COMPR EHENS ITALO METAB OLIC PANEL alanine aminotransfe rase 15 U/L 0-35 Not Available [facility] (Lab) [address] [place], [address], 07/24/2023 18:02:52 07/24/19 24 07/24/2023 COMPR EHENS ITALO METAB OLIC PANEL aspartate aminotransfe rase 24 U/L 15-37 Not Available [facility] (Lab) [address] [place], [address], 07/24/2023 18:02:52 07/24/19 24 07/24/2023 COMPR EHENS ITALO METAB OLIC PANEL bilirubin, total 1.40 mg/dL 0.20-1 [address] [facility] (Lab) [address] [place], [address], 07/24/2023 18:02:52 07/24/19 24 07/24/2023 COMPR EHENS ITALO METAB OLIC PANEL calcium 8.8 mg/dL 8.4-[address] [facility] (Lab) [address] [place], [address], 07/24/2023 18:02:52 07/24/19 24 07/24/2023 COMPR EHENS ITALO METAB OLIC PANEL total protein 5.9 g/dL 6.3-8. [address] [facility] (Lab) [address] [place], [address], 07/24/2023 18:02:52 07/24/19 24 07/24/2023 COMPR EHENS ITALO METAB OLIC PANEL albumin 4.0 g/dL 3.0-4. [address] [facility] (Lab) [address] [place], [address], 07/24/2023 18:02:52 07/24/19 24 07/24/2023 COMPR EHENS ITALO METAB OLIC PANEL globulin 1.9 g/dL 2.6-4. [address] [facility] (Lab) [address] [place], [address], 07/24/2023 18:02:52 07/24/19 24 07/24/2023 COMPR EHENS ITALO METAB OLIC PANEL A/G ratio 2.1 ratio 1.0-2. [address] [facility] (Lab) [address] [place], [address], 07/24/2023 18:02:52 08/12/19 24 08/12/2023 BASIC METAB OLIC PANEL sodium 140 mmol/ L 137-[address] [facility] (Lab) [address] [place], [address], 08/12/2023 15:47:29 08/12/19 24 08/12/2023 BASIC METAB OLIC PANEL potassium 4.1 mmol/ L 3.5-5. [address] [facility] (Lab) [address] [place], [address], 08/12/2023 15:47:29 08/12/19 24 08/12/2023 BASIC METAB OLIC PANEL chloride 108 mmol/ L 98-107 high Not Available [facility] (Lab) [address] [place], [address], 08/12/2023 15:47:29 08/12/19 24 08/12/2023 BASIC METAB OLIC PANEL carbon dioxide 26 mmol/ L 22-30 Not Available [facility] (Lab) [address] [place], [address], 08/12/2023 15:47:29 08/12/19 24 08/12/2023 BASIC METAB OLIC PANEL anion gap 10.1 mmol/ L 14-[address] [facility] (Lab) [address] [place], [address], 08/12/2023 15:47:29 08/12/19 24 08/12/2023 BASIC METAB OLIC PANEL glucose 91 mg/dL 70-99 Not Available [facility] (Lab) [address] [place], [address], 08/12/2023 15:47:29 08/12/19 24 08/12/2023 BASIC METAB OLIC PANEL BUN 13 mg/dL 8-[address] [facility] (Lab) [address] [place], [address], 08/12/2023 15:47:29 08/12/19 24 08/12/2023 BASIC METAB OLIC PANEL creatinine 0.90 mg/dL 0.66-[address] [facility] (Lab) [address] [place], [address], 08/12/2023 15:47:29 08/12/19 24 08/12/2023 BASIC METAB OLIC PANEL GFR 59 Refer ence Range : [place] ge GFR Healt hy Adult : >60 [...] calcu lator is avail able on the [facility] websi te: https :[email or web address] [email or web address].brayan [email or web address].[email or web address] lopez/pr ofess ional s/kdo qi/gf r_cal culat or Not Available [facility] (Lab) [address] [place], [address], 08/12/2023 15:47:29 08/12/19 24 08/12/2023 BASIC METAB OLIC PANEL calcium 9.0 mg/dL 8.4-[address] [facility] (Lab) [address] [place], [address], 08/12/2023 15:47:29 11/27/19 24 11/27/2023 CBC/C OMPLE TE BLD COUNT W/DIF F white blood cells 4.2 x10'3 /uL 4.2-[address] [facility] (Lab) [address] [place], [address], 11/27/2023 13:54:53 11/27/19 24 11/27/2023 CBC/C OMPLE TE BLD COUNT W/DIF F red blood cells 4.16 x10'6 /uL 3.80-[address] [facility] (Lab) [address] [place], [address], 11/27/2023 13:54:53 11/27/19 24 11/27/2023 CBC/C OMPLE TE BLD COUNT W/DIF F hemoglobin 12.7 g/dL 12.0-[address] [facility] (Lab) [address] [place], [address], 11/27/2023 13:54:53 11/27/19 24 11/27/2023 CBC/C OMPLE TE BLD COUNT W/DIF F hematocrit 39.8 % 35.7-[address] [facility] (Lab) [address] [place], [address], 11/27/2023 13:54:53 11/27/19 24 11/27/2023 CBC/C OMPLE TE BLD COUNT W/DIF F mean red cell volume 95.7 fL 82.0-[address] [facility] (Lab) [address] [place], [address], 11/27/2023 13:54:53 11/27/19 24 11/27/2023 CBC/C OMPLE TE BLD COUNT W/DIF F mean red cell hemoglobin 30.5 pg 27.0-[address] [facility] (Lab) [address] [place], [address], 11/27/2023 13:54:53 11/27/19 24 11/27/2023 CBC/C OMPLE TE BLD COUNT W/DIF F mean RBC HGB concentratio n 31.9 g/dL 31.0-[address] [facility] (Lab) [address] [place], [address], 11/27/2023 13:54:53 11/27/19 24 11/27/2023 CBC/C OMPLE TE BLD COUNT W/DIF F red cell distribution width 13.5 % 11.8-[address] [facility] (Lab) [address] [place], [address], 11/27/2023 13:54:53 11/27/19 24 11/27/2023 CBC/C OMPLE TE BLD COUNT W/DIF F platelets 109 x10'3 /uL 150-40 [address] [facility] (Lab) [address] [place], [address], 11/27/2023 13:54:53 11/27/19 24 11/27/2023 CBC/C OMPLE TE BLD COUNT W/DIF F mean platelet volume 13.3 fL 9.0-12 [address] [facility] (Lab) [address] [place], [address], 11/27/2023 13:54:53 11/27/19 24 11/27/2023 CBC/C OMPLE TE BLD COUNT W/DIF F neutrophils 55.1 % 39.0-[address] [facility] (Lab) [address] [place], [address], 11/27/2023 13:54:53 11/27/19 24 11/27/2023 CBC/C OMPLE TE BLD COUNT W/DIF F lymphocytes 29.8 % 16.0-[address] [facility] (Lab) [address] [place], [address], 11/27/2023 13:54:53 11/27/19 24 11/27/2023 CBC/C OMPLE TE BLD COUNT W/DIF F monocytes 10.5 % 5.0-[address] [facility] (Lab) [address] [place], [address], 11/27/2023 13:54:53 11/27/19 24 11/27/2023 CBC/C OMPLE TE BLD COUNT W/DIF F eosinophils 3.6 % 1.0-7. [address] [facility] (Lab) [address] [place], [address], 11/27/2023 13:54:53 11/27/19 24 11/27/2023 CBC/C OMPLE TE BLD COUNT W/DIF F basophils 0.5 % 0.0-2. [address] [facility] (Lab) [address] [place], [address], 11/27/2023 13:54:53 11/27/19 24 11/27/2023 CBC/C OMPLE TE BLD COUNT W/DIF F immature granulocytes 0.5 % 0.00-[address] [facility] (Lab) [address] [place], [address], 11/27/2023 13:54:53 11/27/19 24 11/27/2023 CBC/C OMPLE TE BLD COUNT W/DIF F neutrophils, absolute count 2.31 x10'3 /uL 1.5-8. [address] [facility] (Lab) [address] [place], [address], 11/27/2023 13:54:53 11/27/19 24 11/27/2023 CBC/C OMPLE TE BLD COUNT W/DIF F lymphocytes, absolute count 1.25 x10'3 /uL 1.07-[address] [facility] (Lab) [address] [place], [address], 11/27/2023 13:54:53 11/27/19 24 11/27/2023 CBC/C OMPLE TE BLD COUNT W/DIF F monocytes, absolute count 0.44 x10'3 /uL 0.29-[address] [facility] (Lab) [address] [place], [address], 11/27/2023 13:54:53 11/27/19 24 11/27/2023 CBC/C OMPLE TE BLD COUNT W/DIF F eosinophils, absolute count 0.15 x10'3 /uL 0.02-[address] [facility] (Lab) [address] [place], [address], 11/27/2023 13:54:53 11/27/19 24 11/27/2023 CBC/C OMPLE TE BLD COUNT W/DIF F basophils, absolute count 0.02 x10'3 /uL 0.01-[address] [facility] (Lab) [address] [place], [address], 11/27/2023 13:54:53 11/27/19 24 11/27/2023 CBC/C OMPLE TE BLD COUNT W/DIF F immature granulocytes ,absolute 0.02 x10'3 /uL 0.00-[address] [facility] (Lab) [address] [place], [address], 11/27/2023 13:54:53 11/27/19 24 11/27/2023 CBC/C OMPLE TE BLD COUNT W/DIF F nucleated red blood cells 0.0 % -0 Not Available [facility] (Lab) [address] [place], [address], 11/27/2023 13:54:53 11/27/19 24 11/27/2023 CBC/C OMPLE TE BLD COUNT W/DIF F NRBC# 0.00 x10'3 /uL Not Available [facility] (Lab) [address] [place], [address], 11/27/2023 13:54:53 11/27/19 24 11/27/2023 T4 FREE free T4 1.74 NG/dL 0.78-[address] [facility] (Lab) [address] [place], [address], 11/27/2023 16:34:17 11/27/19 24 11/27/2023 COMPR EHENS ITALO METAB OLIC PANEL sodium 138 mmol/ L 137-14 5 Not Available [facility] (Lab) [address] [place], [address], 11/27/2023 16:32:25 11/27/19 24 11/27/2023 COMPR EHENS ITALO METAB OLIC PANEL potassium 4.1 mmol/ L 3.5-5. 1 Not Available [facility] (Lab) [address] [place], [address], 11/27/2023 16:32:25 11/27/19 24 11/27/2023 COMPR EHENS ITALO METAB OLIC PANEL chloride 112 mmol/ L 98-[address] [facility] (Lab) [address] [place], [address], 11/27/2023 16:32:25 11/27/19 24 11/27/2023 COMPR EHENS ITALO METAB OLIC PANEL carbon dioxide 25 mmol/ L 22-[address] [facility] (Lab) [address] [place], [address], 11/27/2023 16:32:25 11/27/19 24 11/27/2023 COMPR EHENS ITALO METAB OLIC PANEL anion gap 5.1 mmol/ L 14-22 low Not Available [facility] (Lab) [address] [place], [address], 11/27/2023 16:32:25 11/27/19 24 11/27/2023 COMPR EHENS ITALO METAB OLIC PANEL glucose 102 mg/dL 70-[address] [facility] (Lab) [address] [place], [address], 11/27/2023 16:32:25 11/27/19 24 11/27/2023 COMPR EHENS ITALO METAB OLIC PANEL BUN 20 mg/dL 8-[address] [facility] (Lab) [address] [place], [address], 11/27/2023 16:32:25 11/27/19 24 11/27/2023 COMPR EHENS ITALO METAB OLIC PANEL creatinine 0.94 mg/dL 0.66-[address] [facility] (Lab) [address] [place], [address], 11/27/2023 16:32:25 11/27/19 24 11/27/2023 COMPR EHENS ITALO METAB OLIC PANEL GFR 56 Refer ence Range : [place] ge GFR Healt hy Adult : >60 [...] or ethni c subgr oups, such as Hisnj nics. Outsi de the valid ated paco [...] s/kdo qi/gf r_cal culat or Not Available [facility] (Lab) [address] [place], [address], 11/27/2023 16:32:25 11/27/19 24 11/27/2023 COMPR EHENS ITALO METAB OLIC PANEL alkaline phosphatase 89 U/L 38-126 Not Available [facility] (Lab) [address] [place], [address], 11/27/2023 16:32:25 11/27/19 24 11/27/2023 COMPR EHENS ITALO METAB OLIC PANEL alanine aminotransfe rase 12 U/L 0-35 Not Available [facility] (Lab) [address] [place], [address], 11/27/2023 16:32:25 11/27/19 24 11/27/2023 COMPR EHENS ITALO METAB OLIC PANEL aspartate aminotransfe rase 24 U/L 15-37 Not Available [facility] (Lab) [address] [place], [address], 11/27/2023 16:32:25 11/27/19 24 11/27/2023 COMPR EHENS ITALO METAB OLIC PANEL bilirubin, total 1.60 mg/dL 0.20-1 .[address] [facility] (Lab) [address] [place], [address], 11/27/2023 16:32:25 11/27/19 24 11/27/2023 COMPR EHENS ITALO METAB OLIC PANEL calcium 9.1 mg/dL 8.4-[address] [facility] (Lab) [address] [place], [address], 11/27/2023 16:32:25 11/27/19 24 11/27/2023 COMPR EHENS ITALO METAB OLIC PANEL total protein 6.1 g/dL 6.3-8. [address] [facility] (Lab) [address] [place], [address], 11/27/2023 16:32:25 11/27/19 24 11/27/2023 COMPR EHENS ITALO METAB OLIC PANEL albumin 3.9 g/dL 3.0-4. [address] [facility] (Lab) [address] [place], [address], 11/27/2023 16:32:25 11/27/19 24 11/27/2023 COMPR EHENS ITALO METAB OLIC PANEL globulin 2.2 g/dL 2.6-4. [address] [facility] (Lab) [address] [place], [address], 11/27/2023 16:32:25 11/27/19 24 11/27/2023 COMPR EHENS ITALO METAB OLIC PANEL A/G ratio 1.8 ratio 1.0-2. [address] [facility] (Lab) [address] [place], [address], 11/27/2023 16:32:25 11/27/19 24 11/27/2023 LIPID PANEL cholesterol 112 mg/dL 140-19 9 low NIH BECKI NSUS RECOM MENDA TION FOR MADELEINE STERO L: ADULT CHILD LOW RISK: <200 <170 BORDE RLINE : <200- 239 ----- HIGH RISK: >240 >[address] [facility] (Lab) [address] [place], [address], 11/27/2023 16:32:30 11/27/19 24 11/27/2023 LIPID PANEL triglyceride s 139 mg/dL 0-150 NIH BECKI NSUS REPOR T RECOM MENDA TION FOR TRIGL YCERI HARLEY: ADULT CHILD LOW RISK: <150 ----- BODER LINE: 150-1 99 ----- HIGH RISK: >200 ----- Not [address] [facility] (Lab) [address] [place], [address], 11/27/2023 16:32:30 11/27/19 24 11/27/2023 LIPID PANEL HDL cholesterol 36 mg/dL 40- low Not Available [facility] (Lab) [address] [place], [address], 11/27/2023 16:32:30 11/27/19 24 11/27/2023 LIPID PANEL [...] WILL NOT BE REPOR YUSUF. Not Available [facility] (Lab) [address] [place], [address], 11/27/2023 16:32:30 11/27/19 24 11/27/2023 TSH thyroid-stim ulating hormone 0.061 uIU/m L 0.465- 4.[address] [facility] (Lab) [address] [place], [address], 11/27/2023 16:45:53 12/02/19 24 12/02/2023 VITAM IN B12 (DIAZ DARLYN ) vb12 >1000 pg/mL 239-93 [address] [facility] (Lab) [address] [place], [address], 12/02/2023 13:21:02 04/06/20 24 04/06/2024 LIPID PANEL , STAND CARLY cholesterol, total 97 mg/dL <200 normal Not Available [employer] [address] [place], [address], 04/06/2024 19:58:48 04/06/20 24 04/06/2024 LIPID PANEL , STAND CARLY HDL cholesterol 32 mg/dL > or = 50 low Not Available [employer] [address] [address] [place], [address], 04/06/2024 19:58:48 04/06/20 24 04/06/2024 LIPID PANEL , STAND CARLY triglyceride s 82 mg/dL <150 normal Not Available [facility] [address] [place], [address], 04/06/2024 19:58:48 04/06/20 24 04/06/2024 LIPID PANEL [...] 310(1 9): 2061- 2068 (http ://ed ucati on.Slinky [employer]. com/f aq/FA Q164) Not Available [facility] [address], [place], [address], 04/06/2024 19:58:48 04/06/20 24 04/06/2024 LIPID PANEL , STAND CARLY chol/HDLC ratio 3.0 (calc ) <5.0 normal Not Available [facility] [address] [place], [address], 04/06/2024 19:58:48 04/06/20 24 04/06/2024 LIPID PANEL , STAND CARLY non HDL cholesterol 65 mg/dL _(keyona c) <130 normal For patie nts with diabe cielo plus 1 major ASCVD risk facto r, treat ing to a non-H DL-C goal of <100 mg/dL (LDL- C of <70 mg/dL ) is consi dered a thera pepapo c optio n. Not Available [facility] [address] [place], [address], 04/06/2024 19:58:48 04/06/20 24 04/06/2024 COMPR EHENS ITALO METAB OLIC PANEL glucose 96 mg/dL 65-99 normal Fasti ng refer ence inter tim Not Available [address], [address], 04/06/2024 19:58:50 04/06/20 24 04/06/2024 COMPR EHENS ITALO METAB OLIC PANEL urea nitrogen (BUN) 14 mg/dL 7-25 normal Not Available [address], [address], 04/06/2024 19:58:50 04/06/20 24 04/06/2024 COMPR EHENS ITALO METAB OLIC PANEL creatinine 0.98 mg/dL 0.60-0 .95 high Not Available [address], [address], 04/06/2024 19:58:50 04/06/20 24 04/06/2024 COMPR EHENS ITALO METAB OLIC PANEL eGFR 56 mL/mi n/1.7 3m2 > or = 60 low Not Available [address], [address], 04/06/2024 19:58:50 04/06/20 24 04/06/2024 COMPR EHENS ITALO METAB OLIC PANEL BUN/creatini ne ratio 14 (calc ) 6-22 normal Not Available [address], [address], 04/06/2024 19:58:50 04/06/20 24 04/06/2024 COMPR EHENS ITALO METAB OLIC PANEL sodium 144 mmol/ L 135-14 6 normal Not Available [address], [address], 04/06/2024 19:58:50 04/06/20 24 04/06/2024 COMPR EHENS ITALO METAB OLIC PANEL potassium 4.0 mmol/ L 3.5-5. 3 normal Not Available [address] [address] [place], [address], 04/06/2024 19:58:50 04/06/20 24 04/06/2024 COMPR EHENS ITALO METAB OLIC PANEL chloride 109 mmol/ L 98-110 normal Not Available [address] [place], [address], 04/06/2024 19:58:50 04/06/20 24 04/06/2024 COMPR EHENS ITALO METAB OLIC PANEL carbon dioxide 26 mmol/ L 20-32 normal Not Available [address], [address], 04/06/2024 19:58:50 04/06/20 24 04/06/2024 COMPR EHENS ITALO METAB OLIC PANEL calcium 8.9 mg/dL 8.6-10 .4 normal Not Available [address], [address], 04/06/2024 19:58:50 04/06/20 24 04/06/2024 COMPR EHENS ITALO METAB OLIC PANEL protein, total 5.8 g/dL 6.1-8. 1 low Not Available [address], [address], 04/06/2024 19:58:50 04/06/20 24 04/06/2024 COMPR EHENS ITALO METAB OLIC PANEL albumin 3.8 g/dL 3.6-5. 1 normal Not Available [address] [place], [address], 04/06/2024 19:58:50 04/06/20 24 04/06/2024 COMPR EHENS ITALO METAB OLIC PANEL globulin 2.0 g/dL_ (calc ) 1.9-3. 7 normal Not Available [address], [address], 04/06/2024 19:58:50 04/06/20 24 04/06/2024 COMPR EHENS ITALO METAB OLIC PANEL albumin/glob ulin ratio 1.9 (calc ) 1.0-2. 5 normal Not Available [address], [address], 04/06/2024 19:58:50 04/06/20 24 04/06/2024 COMPR EHENS ITALO METAB OLIC PANEL bilirubin, total 1.4 mg/dL 0.2-1. 2 high Not Available [address], [address], 04/06/2024 19:58:50 04/06/20 24 04/06/2024 COMPR EHENS ITALO METAB OLIC PANEL alkaline phosphatase 88 U/L 37-153 normal Not Available [address], [address], 04/06/2024 19:58:50 04/06/20 24 04/06/2024 COMPR EHENS ITALO METAB OLIC PANEL AST 11 U/L 10-35 normal Not Available [address], [address], 04/06/2024 19:58:50 04/06/20 24 04/06/2024 COMPR EHENS ITALO METAB OLIC PANEL ALT 6 U/L 6-29 normal Not Available [address], [address], 04/06/2024 19:58:50 04/06/20 24 04/06/2024 CBC (INCL UDES DIFF/ PLT) white blood cell count 4.3 thous and/u L 3.8-10 .8 normal Not Available [address], [address], 04/06/2024 19:58:51 04/06/20 24 04/06/2024 CBC (INCL UDES DIFF/ PLT) red blood cell count 3.89 maddie on/uL 3.80-5 .10 normal Not Available [address], [address], 04/06/2024 19:58:51 04/06/20 24 04/06/2024 CBC (INCL UDES DIFF/ PLT) hemoglobin 12.1 g/dL 11.7-1 5.5 normal Not Available [address], [address], 04/06/2024 19:58:51 04/06/20 24 04/06/2024 CBC (INCL UDES DIFF/ PLT) hematocrit 38.6 % 35.0-4 5.0 normal Not Available [address], [address], 04/06/2024 19:58:51 04/06/20 24 04/06/2024 CBC (INCL UDES DIFF/ PLT) MCV 99.2 fL 80.0-1 00.0 normal Not Available [address], [address], 04/06/2024 19:58:51 04/06/20 24 04/06/2024 CBC (INCL UDES DIFF/ PLT) MCH 31.1 pg 27.0-3 3.0 normal Not Available [address], [address], 04/06/2024 19:58:51 04/06/20 24 04/06/2024 CBC (INCL [...] nt's clini keyona condi tion. Not Available [facility] - [address], [address], 04/06/2024 19:58:51 04/06/20 24 04/06/2024 CBC (INCL UDES DIFF/ PLT) RDW 12.9 % 11.0-1 5.0 normal Not Available [address], [address], 04/06/2024 19:58:51 04/06/20 24 04/06/2024 CBC (INCL UDES DIFF/ PLT) platelet count 100 thous and/u L 140-40 0 low Not Available [facility] [address], [address], 04/06/2024 19:58:51 04/06/20 24 04/06/2024 CBC (INCL UDES DIFF/ PLT) MPV 13.0 fL 7.5-12 .5 high Not Available [address], [address], 04/06/2024 19:58:51 04/06/20 24 04/06/2024 CBC (INCL UDES DIFF/ PLT) absolute neutrophils 2670 cells /uL 1500-7 800 normal Not Available [address], [address], 04/06/2024 19:58:51 04/06/20 24 04/06/2024 CBC (INCL UDES DIFF/ PLT) absolute lymphocytes 920 cells /uL 850-39 00 normal Not Available [address], [address], 04/06/2024 19:58:51 04/06/20 24 04/06/2024 CBC (INCL UDES DIFF/ PLT) absolute monocytes 490 cells /uL 200-95 0 normal Not Available [address], [address], 04/06/2024 19:58:51 04/06/20 24 04/06/2024 CBC (INCL UDES DIFF/ PLT) absolute eosinophils 211 cells /uL 15-500 normal Not Available [address], [address], 04/06/2024 19:58:51 04/06/20 24 04/06/2024 CBC (INCL UDES DIFF/ PLT) absolute basophils 9 cells /uL 0-200 normal Not Available [address], [address], 04/06/2024 19:58:51 04/06/20 24 04/06/2024 CBC (INCL UDES DIFF/ PLT) neutrophils 62.1 % normal Not Available [address], [address], 04/06/2024 19:58:51 04/06/20 24 04/06/2024 CBC (INCL UDES DIFF/ PLT) lymphocytes 21.4 % normal Not Available [address], [address], 04/06/2024 19:58:51 04/06/20 24 04/06/2024 CBC (INCL UDES DIFF/ PLT) monocytes 11.4 % normal Not Available [address], [address], 04/06/2024 19:58:51 04/06/20 24 04/06/2024 CBC (INCL UDES DIFF/ PLT) eosinophils 4.9 % normal Not Available [address], [address], 04/06/2024 19:58:51 04/06/20 24 04/06/2024 CBC (INCL UDES DIFF/ PLT) basophils 0.2 % normal Not Available [address], [address], 04/06/2024 19:58:51 04/06/20 24 04/06/2024 T4, FREE T4, free 1.3 NG/dL 0.8-1. 8 normal Not Available [address], [address], 04/06/2024 19:58:52 04/06/20 24 04/06/2024 TSH TSH 0.25 mIU/L 0.40-4 .50 low Not Available [address], [address], 04/06/2024 19:58:54 05/19/19 25 05/20/2024 RETIC ULOCY TE COUNT reticulocyte count, automated 1.2 % normal Not Available [address], [address], 05/20/2024 03:48:07 05/19/1905/20/2024 RETIC ULOCY TE COUNT reticulocyte , absolute 40194 cells /uL [address] normal Not Available [address], [address], 05/20/2024 03:48:07 05/19/1905/20/2024 CBC (INCL UDES DIFF/ PLT) white blood cell count 5.1 thous and/u L 3.8-10 .8 normal Not Available [address], [address], 05/20/2024 03:48:08 05/19/1905/20/2024 CBC (INCL UDES DIFF/ PLT) red blood cell count 4.19 maddie on/uL 3.80-5 .10 normal Not Available [address], [address], 05/20/2024 03:48:08 05/19/1905/20/2024 CBC (INCL UDES DIFF/ PLT) hemoglobin 12.9 g/dL 11.7-1 5.5 normal Not Available [address], [address], 05/20/2024 03:48:08 05/19/1905/20/2024 CBC (INCL UDES DIFF/ PLT) hematocrit 41.9 % 35.0-4 5.0 normal Not Available [address], [address], 05/20/2024 03:48:08 05/19/1905/20/2024 CBC (INCL UDES DIFF/ PLT) MCV 100.0 fL 80.0-1 00.0 normal Not Available [address], [address], 05/20/2024 03:48:08 05/19/1905/20/2024 CBC (INCL UDES DIFF/ PLT) MCH 30.8 pg 27.0-3 3.0 normal Not Available [address], [address], 05/20/2024 03:48:08 05/19/1905/20/2024 CBC (INCL UDES DIFF/ [...] nt's clini keyona condi tion. Not Available [address], [address], 05/20/2024 03:48:08 05/19/1905/20/2024 CBC (INCL UDES DIFF/ PLT) RDW 13.0 % 11.0-1 5.0 normal Not Available [address], [address], 05/20/2024 03:48:08 05/19/1905/20/2024 CBC (INCL UDES DIFF/ PLT) platelet count 88 thous and/u L 140-40 0 low Not Available [address], [address], 05/20/2024 03:48:08 05/19/1905/20/2024 CBC (INCL UDES DIFF/ PLT) MPV 13.9 fL 7.5-12 .5 high Not Available [address], [address], 05/20/2024 03:48:08 05/19/1905/20/2024 CBC (INCL UDES DIFF/ PLT) absolute neutrophils 3330 cells /uL 1500-7 800 normal Not Available [address], [address], 05/20/2024 03:48:08 05/19/1905/20/2024 CBC (INCL UDES DIFF/ PLT) absolute lymphocytes 1122 cells /uL 850-39 00 normal Not Available [address], [address], 05/20/2024 03:48:08 05/19/1905/20/2024 CBC (INCL UDES DIFF/ PLT) absolute monocytes 459 cells /uL 200-95 0 normal Not Available [address], [address], 05/20/2024 03:48:08 05/19/1905/20/2024 CBC (INCL UDES DIFF/ PLT) absolute eosinophils 168 cells /uL 15-500 normal Not Available [facility] [address], [address], 05/20/2024 03:48:08 05/19/1905/20/2024 CBC (INCL UDES DIFF/ PLT) absolute basophils 20 cells /uL 0-200 normal Not Available [facility] [address], [address], 05/20/2024 03:48:08 05/19/1905/20/2024 CBC (INCL UDES DIFF/ PLT) neutrophils 65.3 % normal Not Available [address], [address], 05/20/2024 03:48:08 05/19/1905/20/2024 CBC (INCL UDES DIFF/ PLT) lymphocytes 22.0 % normal Not Available [facility] [address], [address], 05/20/2024 03:48:08 05/19/1905/20/2024 CBC (INCL UDES DIFF/ PLT) monocytes 9.0 % normal Not Available [facility] [address], [address], 05/20/2024 03:48:08 05/19/1905/20/2024 CBC (INCL UDES DIFF/ PLT) eosinophils 3.3 % normal Not Available [facility] [address], [address], 05/20/2024 03:48:08 05/19/1905/20/2024 CBC (INCL UDES DIFF/ PLT) basophils 0.4 % normal Not Available [facility] [address], [address], 05/20/2024 03:48:08 05/19/1905/20/2024 VITAM IN B12/F OLATE , SERUM PANEL vitamin B12 1685 pg/mL 200-11 00 high Not Available [facility] [address], [address], 05/20/2024 03:48:09 05/19/1905/20/2024 VITAM IN B12/F OLATE , SERUM PANEL folate, serum 10.6 NG/mL normal Refer ence Range Low: <3.4 Borde rline : 3.4-5 .4 Clara l: >5.4 Not Available [facility] [address] [address], [place], [address], 05/20/2024 03:48:09 07/31/19 24 07/31/2023 XR, chest No observ ation record ed. [address], [place], [address], 07/31/2023 16:02:29 12/16/19 24 12/16/2023 XR, pelvi s No observ ation record ed. [address], [place], [address], 12/19/2023 17:18:52 12/17/19 24 12/17/2023 XR, hip + pelvi s, bilat eral No observ ation record ed. [address], [place], [address], 12/19/2023 17:19:30 12/20/19 24 12/20/2023 XR, chest , 1 view No observ ation record ed. [address], [place], [address], 12/20/2023 16:53:15 06/26/19 25 06/25/2024 XR, shoul nahomy, 1 view No observ ation record ed. [address], [place], [address], 06/25/2024 16:17:55 06/26/19 25 06/25/2024 CT, chest , w/o contr ast No observ ation record ed. [address], [place], [address], 06/25/2024 16:46:47 Result Notes None recorded. Problems Name Problem SNOMED Code Status Onset Date Resolution Date Notes Provider Name and Address Organization Details Recorded Time Hyperchole sterolemia 13240327 Active Not Available [facility] 3 06:58:07 Anxiety disorder 792739398 Active Not Available [facility] 3 06:58:07 Postablati ve hypothyroi dism 139507975 Completed Not Available [facility] 3 06:58:07 Mass of neck 862159121 Active 2021 Not Available [facility] 3 06:58:07 Lymphadeno damian 51125805 Active 2021 Not Available [facility] 3 06:58:07 Migraine 07281612 Active Not Available [facility] 3 06:58:07 Neuropathy 625418065 Active 2019 Not Available [facility] 3 06:58:07 Vertigo 321831547 Active Not Available [facility] 3 06:58:07 Hypothyroi dism 03171973 Active Not Available [facility] 3 06:58:07 Congestive heart failure 52562710 Active 2020 Not Available [facility] 3 06:58:07 Atrial fibrillati on 17244133 Active 2021 Not Available [facility] 3 06:58:07 Initial insomnia 43283614 Active 2017 Not Available [facility] 3 06:58:07 Swollen abdomen 99278657 Active Not Available [facility] 3 06:58:07 Abscess of neck 3999404 Active 2021 Not Available [facility] 3 06:58:07 Fatigue 25418480 Active Not Available [facility] 3 06:58:07 Otitis media 45190330 Active 2022 Adarsh Tan MD [address], [place], [address] , [employer] [facility] [employer] 3 11:46:53 Acute pharyngiti s 276289271 Active 2022 Adarsh Tan MD [address], [place], [address] , [facility] - [facility] [employer] [facility] 3 11:05:13 Vitamin D deficiency 20001474 Active 2022 Adarsh Tan MD [address], [place], [address] , [facility] - [facility] [place] [facility] 3 11:06:38 Anemia 730808392 Active 2022 Tammie Pope null, [place] - [facility] 3 16:14:43 Cough 89750709 Active 2023 Adarsh Tan MD [address], [address], [place], [address] , [facility] - [facility] 4 10:30:41 Hypokalemi a 83795233 Active 2023 NENA Delgado, [facility] 4 11:07:29 Overactive urinary bladder 515916125 Active 2023 NENA Delgado, [facility], [facility] 4 11:05:16 Acute sinusitis 06875282 Active 2023 Adarsh Tan MD [address], [address], [place], [address] , [facility] 4 15:13:51 Thrombocyt openic disorder 221606962 Active 2023 Adarsh Tan MD [address], [address], [place], [address] , [facility] 4 12:51:10 Dementia 77948304 Active 2023 NENA Delgado, [facility] 4 16:50:41 Acute bronchitis 55345308 Active 2024 Adarsh aTn MD [address], [place], [address] , [facility] 5 11:21:23 Essential thrombocyt hemia 306969861 Active 2024 NENA Delgado, [facility] 5 12:56:04 Problem Notes None recorded. Procedures Surgical History Date Name Laterality Status Provider Name and Address Organization Details Recorded Time 4 Medicare Wellness CPT Code, subsequent completed Junie Lee RN [facility] [employer] [facility] 01/15/2024 11:05:43 4 Nail Debridement completed Javier Yoder DPM [address], [place], [address], [facility] [employer] [facility] 11/04/2023 15:12:59 4 Debridement of Callus or [place] completed Javier Yoder DPM [address], [place], [address], [facility] [employer] [facility] 11/04/2023 15:13:22 3 Medicare Wellness CPT Code, subsequent completed Junie Lee RN [facility] [employer] [facility] 12/05/2022 10:51:58 Imaging Results Imaging Date Name Status LastModified by Organiz ation Details LastModified Time 07/31/2023 XR, chest completed [address] [place] [address], [address], 07/31/2023 16:02:29 12/16/2023 XR, pelvis completed [address] [place] [address], [address], 12/19/2023 17:18:52 12/17/2023 XR, hip + pelvis, bilateral completed [email or web address] [place] [address] [place] [address], [address], 12/19/2023 17:19:30 12/20/2023 XR, chest, 1 view completed [address] [place] [address], [address], 12/20/2023 16:53:15 06/25/2024 XR, shoulder, 1 view completed [address] [place] [address], [address], 06/25/2024 16:17:55 06/25/2024 CT, chest, w/o contrast completed [address] [place] [address], [address], 06/25/2024 16:46:47 Procedure Notes None recorded. Medical Equipment None Reported. Allergies Allergen ID Allergen Name Allergen Category Reaction Reaction Severity Criticality Documentation Date Start Date Code Code System Note Provider Name and Address Organization Details Recorded Time 46579 Tamiflu medicatio n rash Not available Not available 06/20/2022 93776 7 RxNorm Not Available [facility] 3 07:01:37 91253 Robitussi n medicatio n other Not available Not available 06/20/2022 80552 2 RxNorm facia l swell ing Not Available [facility] 3 07:01:37 Medications Name Sig Start Date [...] Updated DateTime 4 158.75 cm 23 kg/m2 57296.8 2 g 76 /min 97 [degF] 93 % 93 % 120 mm[Hg] 80 mm[Hg] Tammie Pope [employer] [facility] [employer] 4 10:58:32 Date Recorded Body height Body mass index (BMI) Body weight Oxygen saturation Oxygen saturation in Arterial blood by Pulse oximetry Body temperature Provider Name and Address Organization Details Last Updated DateTime 4 158.75 cm 23 kg/m2 57811.8 2 g 95 % 95 % 98.1 [degF] ASHLEY Ordonez [employer] [facility] [employer] [facility] 4 11:21:55 Date Recorded Body height Body mass index (BMI) Body weight Heart rate Body temperature Oxygen saturation Oxygen saturation in Arterial blood by Pulse oximetry Systolic blood pressure Diastolic blood pressure Provider Name and Address Organization Details Last Updated DateTime 4 158.75 cm 22.1 kg/m2 47554.8 6 g 72 /min 97.5 [degF] 98 % 98 % 124 mm[Hg] 84 mm[Hg] Arlin Vicente Jacqueline [facility] [employer] [facility] 4 11:23:31 Date Recorded Body height Body weight Heart rate Body temperature Oxygen saturation Oxygen saturation in Arterial blood by Pulse oximetry Systolic blood pressure Diastolic blood pressure Provider Name and Address Organization Details Last Updated DateTime 4 158.75 cm 03260.0 5 g 83 /min 97 [degF] 96 % 96 % 120 mm[Hg] 84 mm[Hg] Arlin Vicente ASHLEY [facility] [employer] [facility] 4 10:58:05 Date Recorded Pain severity - 0-10 verbal numeric rating [Score] - Reported Provider Name and Address Organization Details Last Updated DateTime 01/15/2024 0 Junie Lee RN [facility] [employer] [facility] 01/15/2024 11:06:04 Date Recorded Body height Body mass index (BMI) Body weight Heart rate Body temperature Oxygen saturation Oxygen saturation in Arterial blood by Pulse oximetry Systolic blood pressure Diastolic blood pressure Provider Name and Address Organization Details Last Updated DateTime 4 158.75 cm 20 kg/m2 75849.7 5 g 97 /min 97 [degF] 95 % 95 % 140 mm[Hg] 90 mm[Hg] Arlin Vicente Jacqueline [facility] 4 11:36:38 Social History Question Answer Notes LastModified by Organizat ion Details LastModified Time Tobacco Smoking Status Never Smoker Not Available [facility] 06/20/2022 06:55:12 Do You Have An Advance Directive? Yes [email or web address] Information not available 12/05/2022 What Is Your Level Of Alcohol Consumption? None [email or web address] Information not available 01/15/2024 Are You Blind Or Do You Have Difficulty Seeing? No [id number] Information not available 06/20/2022 In The 14 Days Before Symptom Onset, Have You Had Close Contact With A Laboratory-confir med COVID-19 While That Case Was Ill? No [id number] Information not available 06/20/2022 In The 14 Days Before Symptom Onset, Have You Had Close Contact With A Person Who Is Under Investigation For COVID-19 While That Person Was Ill? No MIGRATION.[id number] Information not available 06/20/2022 Are You Deaf Or Do You Have Serious Difficulty Hearing? Yes [email or web address] Information not available 12/05/2022 What Type Of Diet Are You Following? REGULAR MIGRATION.83677 51915 Information not available 06/20/2022 Have There Been Any Changes To Your Family Or Social Situation? No MIGRATION.72097 70710 Information not available 06/20/2022 What Is The Fluoride Status Of Your Home? Unknown MIGRATION.93444 81877 Information not available 06/20/2022 Are There Any Guns Present In Your Home? No MIGRATION.65137 97566 Information not available 06/20/2022 Do You Use Insect Repellent Routinely? No MIGRATION.23263 62113 Information not available 06/20/2022 Where Do You Live? [place] MIGRATION.90744 02238 Information not available 06/20/2022 Guns Present In The Home? No [email or web address] Information not available 12/05/2022 Are You Able To Care For Yourself? Yes [email or web address] Information not available 12/05/2022 Are You Blind Or Do Yo Have Difficulty Seeing? No [email or web address] Information not available 12/05/2022 Are You Deaf Or Do You Have Serious Difficulty Hearing? Yes Information not available 12/05/2022 Live Alone Of With Others? With Others [email or web address] Information not available 12/05/2022 Do You Have A Medical Power Of Clipper Counters? Yes [email or web address] Information not available 12/05/2022 What Was The Date Of Your Most Recent Tobacco Screening? 01/15/2024 [email or web address] Information not available 01/15/2024 Do You Have Any Pets? No [email or web address] Information not available 12/05/2022 What Is Your Relationship Status? [email or web address] Information not available 12/05/2022 Do You Use Your Seat Belt Or Car Seat Routinely? Yes [email or web address] Information not available 12/05/2022 Do You Have Smoke And Carbon Monoxide Detectors In Your Home? Yes MIGRATION.99587 32597 Information not available 06/20/2022 Are You Passively Exposed To Smoke? No MIGRATION.87126 16707 Information not available 06/20/2022 Are There Any Smokers In Your House? No [email or web address] Information not available 12/05/2022 Do You Use Sunscreen Routinely? No MIGRATION.70493 18945 Information not available 06/20/2022 Have You Recently Traveled Abroad? No MIGRATION.28263 59266 Information not available 06/20/2022 Do You Have Any Dietary Restrictions? No MIGRATION.80982 92476 Information not available 06/20/2022 Do You Or Have You Ever Used Any Other Forms Of Tobacco Or Nicotine? No MIGRATION.03192 23722 Information not available 06/20/2022 Sex: Unknown Functional Status Question Answer Note LastModified by Organizat ion Details LastModified Time Do you have difficulty walking or climbing stairs? Yes recent hip surgery [email or web address] Information not available 01/15/2024 Do you have transportation difficulties? No MIGRATION.708737 3452 Information not available 06/20/2022 Are you able to walk? YESASSIST [email or web address] Information not available 01/15/2024 Do you have difficulty doing errands alone? Yes MIGRATION.864752 4481 Information not available 06/20/2022 Are you able to care for yourself? Yes MIGRATION.346255 4979 Information not available 06/20/2022 Do you have difficulty dressing or bathing? No MIGRATION.983007 6367 Information not available 06/20/2022 What is your exercise level? None MIGRATION.948258 7450 Information not available 06/20/2022 Mental Status Question Answer Note LastModified by Organizat ion Details LastModified Time Do you have difficulty concentrating, remembering or making decisions? No MIGRATION.[id number] 6 Information not available 06/20/2022 Family History [...] HAVE YOU BEEN HOSPITALIZED OR SEEN IN [facility] IN THE PAST YEAR ? N ATHEROSCLEROSIS [...] virus, trivalent, preservative 5 completed Not Available [facility] 06/20/2022 07:01:28 Influenza, split virus, quadrivalent, preservative 2 completed Not Available [facility] 06/20/2022 07:01:28 SARS-COV-2 (COVID-19) vaccine, UNSPECIFIED 1 completed Not Available [facility] 06/20/2022 07:01:28 Influenza, split virus, quadrivalent, preservative 1 completed Not Available [facility] 06/20/2022 07:01:28 COVID-19 Non-US Vaccine, Product Unknown 1 completed Not Available [facility] 06/20/2022 07:01:28 COVID-19 Non-US Vaccine, Product Unknown 1 completed Not Available [facility] 06/20/2022 07:01:28 Influenza, split virus, trivalent, preservative 8 completed Not Available [facility] 06/20/2022 07:01:28 pneumococcal polysaccharide PPV23 9 completed Not Available [facility] 06/20/2022 07:01:29 Pneumococcal conjugate PCV 13 5 completed Not Available [facility] 06/20/2022 07:01:29 Influenza, high-dose, trivalent, PF 4 completed ASHLEY Tolbert, [employer] [facility] 04/01/2024 14:34:20 Pneumococcal conjugate PCV20, polysaccharide HWU127 conjugate, adjuvant, PF 4 completed ASHLEY Tolbert, [employer] [facility] 04/01/2024 14:34:20 Past Encounters Encounter ID Performer Location Encounter Start Date Encounter Closed Date Diagnosis/Indication Diagnosis SNOMED-CT Code Diagnosis ICD10 Code Diagnosis Note [id number] [facility] Internal Med [facility] [address] [place] [address] [address] 11/09/2020 00:00:00 11/09/2020 12:23:09 [id number] [facility] Internal Med [facility] [address] [address] 12/21/2020 00:00:00 12/21/2020 11:57:58 [id number] [facility] Internal Med [facility] [address] [address] 04/26/2021 00:00:00 04/26/2021 11:58:37 [id number] [facility] Internal Med [facility] [address] [address] 08/23/2021 00:00:00 08/23/2021 11:31:25 [id number] [facility] Internal Med [facility] [address] [address] 12/27/2021 00:00:00 12/27/2021 11:11:12 [id number] [facility] Internal Med [facility] [address] [address] 01/29/2022 00:00:00 01/29/2022 11:30:54 [id number] [facility] [address] [address] 04/05/2022 00:00:00 04/05/2022 13:57:58 [id number] S_GMG Internal Med Sybil aranda [address] [place] [address] y [place] [address] 04/06/2022 00:00:00 04/06/2022 15:08:13 [id number] Adarsh Tan MD S_G Internal Med Sybil aranda [address] [place] [address] [place] [address] 08/07/2022 14:52:21 08/07/2022 15:50:03 Congestive heart failure 71806102 I50.9 Hypercholesterolemia 136 21759 E78.00 Atrial fibrillation 4943 6004 I48.91 Hypothyroidism 42638950 E03.9 [id number] Adarsh Tan MD S_GMG Internal Med [facility] [address] [address] 12/05/2022 10:36:07 12/05/2022 11:12:32 Adult health examination 196232678 Z00.00 Screening for disorder 431564074 Z13.9 Congestive heart failure 54247272 I50.9 Atrial fibrillation 4943 6004 I48.91 Hypothyroidism 00976607 E03.9 Hypercholesterolemia 136 13784 E78.00 Vitamin D deficiency 347 38271 E55.9 [id number] Adarsh Tan MD S_[facility]G Internal Med [facility] [address] [address] 03/27/2023 11:55:06 03/27/2023 12:41:40 Atrial fibrillation 51929145 I48.91 Congestive heart failure 12038417 I50.9 Hypercholesterolemia 136 47905 E78.00 Hypothyroidism 77132736 E03.9 [id number] Adarsh Tan MD [facility] [address] [address] 07/24/2023 10:47:23 07/24/2023 11:57:19 Hypercholesterolemia 31911678 E78.00 Hypothyroidism 05738204 E03.9 Atrial fibrillation 4943 6004 I48.91 [id number] Adarsh Tan MD [facility] [address] [address] 08/15/2023 10:52:05 08/15/2023 11:10:37 Hypokalemia 45443419 E87.6 [id number] Javier Yoder DPM [facility] Podiatry [facility] [address] [address] 11/04/2023 10:48:49 11/04/2023 16:25:[id number] [facility] [address] [address] 11/27/2023 11:03:52 11/27/2023 11:44:22 Congestive heart failure 40740517 I50.9 Atrial fibrillation 4943 6004 I48.91 Hypothyroidism 32791504 E03.9 Neuropathy 685620855 G62 .9 Hypercholesterolemia 136 97780 E78.[id number] [facility] [address] [address] 01/15/2024 10:39:09 01/15/2024 11:33:49 Adult health examination 319018600 Z00.00 Screening for disorder 363873405 Z13.9 Atrial fibrillation 4943 6004 I48.91 Hypercholesterolemia 136 77291 E78.00 Hypothyroidism 14800588 E03.9 [id number] Adarsh Tan MD [facility] [address] [address] 04/01/2024 11:00:38 04/01/2024 12:04:29 Atrial fibrillation 82514333 I48.91 [facility] 136 98583 E78.00 [facility] 13866585 E03.9 Health Concerns Section Related Observation LastModified by Organization Detai ls LastModified Time None Recorded Concern Status LastModified by Organization Details LastModified Time None Recorded Advance Directives Directive Y: Payers Encounter Date Sequence Insurance Name Policy Number Policy Donahue Covered Member ID Donahue Member ID Guarantor Name 08/15/2023 1 [facility] (MEDICARE REPLACEMENT/A DVANTAGE - HMO) [id number] Renata Gentile Brown [id number] Eathel Brown 11/04/2023 1 [facility] (MEDICARE REPLACEMENT/A DVANTAGE - HMO) [id number] Eatlos F Brown [id number] Eathel Brown 11/27/2023 1 [facility] (MEDICARE REPLACEMENT/A DVANTAGE - HMO) [id number] Eatlos F Brown [id number] Eathel Brown 01/15/2024 1 [facility] (MEDICARE REPLACEMENT/A DVANTAGE - HMO) [id number] Renaat Gentile Brown [id number] Eathel Brown 04/01/2024 1 [facility] (MEDICARE REPLACEMENT/A DVANTAGE - HMO) [id number] Eatlos F Brown [id number] Eathel Brown Notes Date Note Type Note [...] 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 Echocardiogram from 08/02/2022 [...] Reactions ReviewedRobitussin Facial SwellingTamiflu Rash Vaccination and Ymigtcakuahb0087-83 Ymkdflmmf6470-49 Covid Aenuth7055-83 Covid Booster Kfcgnx6760-30 Tetanus Flmlsnd7604-64 Pseiwapn9090-15 Ruqlzdfpu4459-07 Prevnar 13 Surgical Ekxamxa2453-91 Gbwfffdsvgarywu0239-91 Vaginal Hysterectomy Preventative Fywxkqv5807/24/2023 ALBUMIN 4.0 G/DL01/25/2014 COLONOSCOPY (10 YEARS) MAMMOGRAM HAIC 5.9 % Social HistoryDoes not smokeDoes not drinkDoes office work Family HistoryMother 61 from hypertension and CVAFather in late 20's from TBOne brother living ASHD and CABGTwo sisters both both hx of CVA(2) Adarsh Tan MD [address], [place], [address], [employer] 08/15/2023 11:04:21 4 text/html Pt RTC for routine nail care, incurvated nails both feet. 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 Echocardiogram from 08/02/2022 [...] medications: Eliquis. Rate control: rapid ventricular response [id number] Criteria: congestive heart failure, Age > 75 [...] Reactions ReviewedRobitussin Facial SwellingTamiflu Rash Vaccination and Ugitamnngwoc5384-73 Cpzcdqchx0116-08 Covid Nxuvyl0974-87 Covid Booster Uwenvm5145-50 Tetanus Octyuhc6114-73 Jmmbzire5239-99 Bocbgehgp2192-77 Prevnar 13 Gc Surgical Lkmakjc9106-48 Emczsbtxzeyzghd9476-46 Vaginal Hysterectomy Preventative Testing( ) 07/24/2023 Albumin [...] Reactions ReviewedRobitussin Facial SwellingTamiflu Rash Vaccination and Bpzermxfjpqv4075-34 Uhbqdwstj8114-98 Covid Mmwrzy8682-65 Covid Booster Pqqtkd1598-71 Tetanus Becgsrs7225-74 Zavumtqt2147-36 Mfehvkuzi5568-62 Prevnar 13 Gc Surgical Txkuxch2368-66 Azldlwsvjkfyzdg7721-17 Vaginal Hysterectomy Preventative Testing( ) 07/24/2023 Albumin [...] 43 0-130 MG/DL Adarsh Tan MD [address] [facility], [facility] [address], [place], [address], 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 Echocardiogram from 08/02/2022 [...] Succinate Er. Rate control: controlled ventricular response [id number] Criteria: Age > 75 and and considered [...] Reactions ReviewedRobitussin Facial SwellingTamiflu Rash Vaccination and Pckffunwfbex6484-88 Maovetgth3058-48 Covid Vksbqn5434-25 Covid Booster Ibmkyd6993-29 Tetanus Honhodi1881-21 Vrkjkzkq3815-69 Blsfvwnrs0781-05 Prevnar 13 Gc Surgical Itpwjmr3302-33 Lt. Femur Open Reduction Yoiegmxr4293-97 Rhrfebepobbsbya3392-50 Vaginal Hysterectomy Preventative Testing( ) 11/27/2023 Albumin 3.9 G/DL( ) 01/25/2014 Colonoscopy (10 Years) 01/26/2024( ) 12/10/2013 Mammogram 12/11/2015( ) 09/20/2004 HAIC 5.9 % Social HistoryDoes not smokeDoes not drinkDoes office work Family HistoryMother 61 from hypertension and CVAFather in late 20's from TBOne brother living ASHD and CABGTwo sisters both both hx of CVA(2) Adarsh Tan MD [address] [facility], [facility] [address], [place], [address], [facility] [place] [employer] 01/15/2024 11:30:45 4 text/html Patient Name: Liliane [...] 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 Echocardiogram from 08/02/2022 [...] specific medication. Rate control: controlled ventricular response [id number] Criteria: hypertension, Age > 75 and and [...] COVID PFIZER(X) 2021-02 COVID BOOSTER PFIZER Surgical Jgtqusy4521-80 Lt. Femur Open Reduction Hqssuexn1547-33 Bgzphrxceqwzvwm5378-37 Vaginal Hysterectomy Preventative Testing( ) 11/27/2023 Albumin [...] >1000 239-931 PG/ML Adarsh Tan MD [address] [facility], [facility] [address], [place], [address], [place] [facility] 04/01/2024 11:59:12 OBGyn Episode No OBEpisode recorded.
--- OUTSIDE RECORDS SUMMARY | 2024-07-11 07:30 | XMS_ITS | Referral Summary ---
Author Organization [facility] [address] [facility] [address] Address [address] [place] [address] Care Team Providers Care Windows Systems Administrator Name Role Phone Adarsh Tan MD Primary Care Provider Encounters Date Type Department Care Team Description 05/28/2024 11:30 AM TELEPHONE CLERKS SUPERVISOR Office Visit [facility] Medical Group Cardiology [address] [facility] [address] [place] [address] Homar Greenwood MD Permanent atrial [...] 1 tablet (75 mcg total) by mouth chimney supervisor brick before breakfast Active metoprolol XL (TOPROL-XL) 100 [...] Comments Blood Pressure 130/70 05/28/2024 11:32 AM TELEPHONE CLERKS SUPERVISOR Pulse 72 05/28/2024 11:32 AM TELEPHONE CLERKS SUPERVISOR Temperature - - Respiratory Rate - - Oxygen Saturation 96% 05/28/2024 11:32 AM TELEPHONE CLERKS SUPERVISOR Inhaled Oxygen Concentration - - Weight 52.7 kg (116 lb 1.6 oz) 05/28/2024 11:32 AM TELEPHONE CLERKS SUPERVISOR Height 165.1 cm (5' 5 ) 05/28/2024 11:32 AM TELEPHONE CLERKS SUPERVISOR Body Mass Index 19.32 05/28/2024 11:32 AM TELEPHONE CLERKS SUPERVISOR Plan of Treatment Not on file Insurance [facility] MEDICARE ADVANTAGE [facility] MEDICARE ADVANTAGE Care Teams Windows Systems Administrator Relationship Specialty Start Date End Date Adarsh Tan MD [address] [facility] [address] [place] [address] PCP - General Internal Medicine 10/12/20
== END 2024-07-11 07:27 | disposition home or self-care (01) ==
PROVIDERS: PCP Internal Medicine; Visit Provider Internal Medicine Hematology & Oncology
DX: D69.59 Other secondary thrombocytopenia (principal); N28.89 Other specified disorders of kidney and ureter; Z90.49 Acquired absence of other specified parts of digestive tract
CPT/HCPCS: 76700

== ENCOUNTER 2024-07-13 19:05 | Inpatient (IN) | payer MEDICARE, SELFPAY ==
[2024-07-13 19:07] VITALS: BP 97/71; PULSE 110; RESP 20; TEMP 36.4; O2SAT 85
--- OUTSIDE RECORDS SUMMARY | 2024-07-13 19:11 | XMS_ITS | Clinical Summary ---
Author Organization [facility] [address] Address [address] [place] [address] Care Team Providers Care Gis Technician Name Role Phone Adarsh Tan MD Primary [...] 1 tablet (75 mcg total) by mouth communication professor before breakfast Active metoprolol XL (TOPROL-XL) [...] Department Care Team Description 05/28/2024 11:30 AM MINE EXPERT Office Visit [facility] Medical Group Cardiology [address] [address] [address] [place] [phone] Homar Greenwood MD Permanent atrial fibrillation (HCC) [...] Comments Blood Pressure 130/70 05/28/2024 11:32 AM MINE EXPERT Pulse 72 05/28/2024 11:32 AM MINE EXPERT Temperature - - Respiratory Rate - - Oxygen Saturation 96% 05/28/2024 11:32 AM MINE EXPERT Inhaled Oxygen Concentration - - Weight 52.7 kg (116 lb 1.6 oz) 05/28/2024 11:32 AM MINE EXPERT Height 165.1 cm (5' 5 ) 05/28/2024 11:32 AM MINE EXPERT Body Mass Index 19.32 05/28/2024 11:32 AM MINE EXPERT Plan of Treatment Health Maintenance Due Date [...] Pneumococcal vaccine 65+ Completed 11/19/2018, 12/2014 Insurance [facility] MEDIC[facility] Address: [address] [address] [id number] [facility] MEDICARE ADVANTAGE [facility] MEDIC[facility] Address: [facility] [address] [place] [address] Care Teams Gis Technician Relationship Specialty Start Date End Date Adarsh Tan MD [address] [place] [address] PCP - General Internal Medicine 10/12/20
--- OUTSIDE RECORDS SUMMARY | 2024-07-13 19:11 | XMS_ITS | Referral Summary ---
Author Organization [facility] [place] [address] [facility] [address] Address [address] [place] [address] Care Team Providers Care Insights Analyst Name Role Phone Adarsh Tan MD Primary Care Provider Encounters Date Type Department Care Team Description 05/28/2024 11:30 AM SOCIAL SERVICES SPECIALIST Office Visit [facility] Medical Group Cardiology [address] [facility] [address] [place] [address] Homar Greenwood MD Permanent atrial [...] 1 tablet (75 mcg total) by mouth boat tester before breakfast Active metoprolol XL (TOPROL-XL) 100 [...] Comments Blood Pressure 130/70 05/28/2024 11:32 AM SOCIAL SERVICES SPECIALIST Pulse 72 05/28/2024 11:32 AM SOCIAL SERVICES SPECIALIST Temperature - - Respiratory Rate - - Oxygen Saturation 96% 05/28/2024 11:32 AM SOCIAL SERVICES SPECIALIST Inhaled Oxygen Concentration - - Weight 52.7 kg (116 lb 1.6 oz) 05/28/2024 11:32 AM SOCIAL SERVICES SPECIALIST Height 165.1 cm (5' 5 ) 05/28/2024 11:32 AM SOCIAL SERVICES SPECIALIST Body Mass Index 19.32 05/28/2024 11:32 AM SOCIAL SERVICES SPECIALIST Plan of Treatment Not on file Insurance [facility] MEDICARE ADVANTAGE [facility] MEDICARE ADVANTAGE Care Teams Insights Analyst Relationship Specialty Start Date End Date Adarsh Tan MD [address] [facility] [address] [place] [address] PCP - General Internal Medicine 10/12/20
--- OUTSIDE RECORDS SUMMARY | 2024-07-13 19:11 | XMS_ITS | CONTINUITY OF CARE DOCUMENT ---
Author Name [email or web address] Address Unknown Organization [facility] Address [address] [facility] [address] [place] [address] Phone [phone] Care Team Providers Care Welt Edge Rounder Name Role Phone Mehul MCKAY, Charly Unavailable [phone] CASANDRA MCKAY, YOLANDA Unavailable YOLANDA GUAJARDO MD Unavailable [phone] PROBLEMS Condition Status Date Provider Notes Chest pain active Charly Carver MD INSURANCE PROVIDERS Payer name Policy type / Coverage type [place] red constitution party ID [employer] [id number] [place] MEDICARE Medicare [id number] HISTORY OF PROCEDURES Procedure Date Procedure Name Provider Procedure Notes S tatus Cardiolite, 2 units Charly Carver MD completed SPECT Images Charly Carver MD complet ed Stress EKG Charly Carver MD completed Holter, 24 or 48 Charly Carver MD com pleted
--- OUTSIDE RECORDS SUMMARY | 2024-07-13 19:11 | XMS_ITS | Encounter Summary ---
Author Organization [facility] ABEL Lopez [facility] Address [address] [place] [address] Care Team Providers Care Goring Cutter Name Role Phone Unavailable Primary Care Provider Unavailabl e Encounter Details Date Type Department Care Team (Late Contact Info) Description 07/08/2024 Orders Only [facility] Oncology and Hematology - Jermaine Bijal Rodriguez [address] [place] [phone] Antwan Irvin MD [facility] [place] [address] [place] [address] Social History Tobacco Use Types Packs/Day Years Used Date Smoking Tobacco: Never Smokeless Tobacco: Never Alcohol Use Standard Drinks/Week Comments Yes 0 (1 standard drink = 0.6 oz pur e alcohol) Occasionally Comments Unknown Sex and Gender Information Value Date Recorded Sex Assigned at Not on file Legal Sex Female 10:37 AM STONEWORKING BELT SANDER Gender Identity Not on file Sexual Orientation Not on file documented as of this encounter Plan of Treatment Upcoming Encounters Date Type Department Care Team (Late Contact Info) Description 07/22/2024 4:00 PM CDT Telephone Check Up [facility] Oncology and Hematology Jermaine Bijal [address] [place] [phone] Antwan Irvin MD [facility] [place] [address] [place] [phone] documented as of this encounter Procedures Procedure [...]
--- OUTSIDE RECORDS SUMMARY | 2024-07-13 19:11 | XMS_ITS | Data Portability ---
Author Organization [facility], Main Office Address [address] [place] [address] Assessment No assessment recorded. Plan of Treatment Reminders Order Date Submit Date Provider Last Modified By Organization Details Last Modified Time Details Appointments None recorded . Lab lipid panel, serum 024 04/01/[address] [facility], [address] [place], [address], 4 19:58:48 CMP, serum or plasma 024 04/01/[address] [facility], [address] [place], [address], 4 19:58:50 TSH, serum or plasma 024 04/01/[address] [facility], [address] [place], [address], 4 19:58:54 T4, free, serum 024 04/01/[address] [facility], [address] [place], [address], 4 19:58:53 CBC w/ auto diff 024 04/01/[address] [facility], [address] [place], [address], 4 19:58:51 lipid panel, serum 024 11/27/[address] [facility], [address] [place], [address], 4 16:32:30 CMP, serum or plasma 024 11/27/[address] [facility], [address] [place], [address], 4 16:32:25 T4, free, serum 024 11/27/19 24 [facility], [address] [place], [address], 4 16:31:03 TSH, serum or plasma 024 11/27/19 24 [facility], [address] [place], [address], 4 16:45:53 CBC w/ auto diff 024 11/27/19 24 [facility], [address] [place], [address], 4 13:54:53 BMP, serum or plasma 024 11/27/[email or web address] [facility], [address] [place], [address], 4 17:15:58 Referral None recorded . Procedures None recorded . Surgeries None recorded . Imaging None recorded . Medication Orders None recorded . Patient TargetsNo targets recorded. Patient Instructions Encounter Date Encounter Id Patient Instructions Last Modified By Organization Details Last Modified Time 08/15/2023 [id number] Follow-up from emergency room for hypokalemia. The hypokalemia has been corrected up to 4.1 now. Will continue on current Rx follow at her regularly scheduled appointment in November. Keep Appointment: Sat 10:20 AM Vick Portions of the record may have been created with voice recognition software. Occasional wrong-word or xxdka-o-rnql substitutions may have occurred due to the inherent limitations of voice recognition software. Read the chart carefully and recognize, using context, where substitutions have occurred. [email or web address] Not available 08/15/2023 11:04:10 11/27/2023 [id number] Follow-up for history of congestive heart failure, [...] with voice recognition software. Occasional wrong-word or zldaw-v-xumf substitutions may have occurred due to the inherent limitations of voice recognition software. Read the chart carefully and recognize, using context, where substitutions have occurred. Not available 11/27/2023 11:41:50 01/15/2024 [id number] dementia rating scale-2* [email or web address] Not available 01/15/2024 11:30:41 alcohol misuse* [email or web address] Not available 01/15/2024 11:30:41 depression screening* Not available 01/15/2024 11:30:41 Timed Up and Go test (TUG)* [email or web address] Not available 01/15/2024 11:30:41 multi-dimensiona l health assessment questionnaire* [email or web address] Not available 01/15/2024 11:30:40 Personalized Hea lth [...] I have no recommendations Depression Screening: Negative [email or web address] Not available 01/15/2024 11:12:41 Medicare wellnes s [...] a day Keep Appointment: Sat 10:30 AM Glenn Portions of the record may have been created with voice recognition software. Occasional wrong-word or rtfee-z-ewzf substitutions may have occurred due to the inherent limitations of voice recognition software. Read the chart carefully and recognize, using context, where substitutions have occurred. [email or web address] Not available 01/15/2024 11:30:23 04/01/2024 [id number] . Follow-up paroxysmal atrial fibrillation, hyperlipidemia, hypothyroidism [...] with voice recognition software. Occasional wrong-word or igbtz-r-fecz substitutions may have occurred due to the inherent limitations of voice recognition software. Read the chart carefully and recognize, using context, where substitutions have occurred. Created: Adarsh Tan M.D. 04.01.2024 10:58 AM [email or web address] Not available 04/01/2024 11:58:56 Reason for Referral None Reported. Results Created Date Observation Date Name Description Value Unit Range Abnormal Flag Note LastModifiedBy Organization Detail LastModifiedTime 07/24/19 24 07/24/2023 CBC/C OMPLE TE BLD COUNT W/DIF F white blood cells 6.6 x10'3 /uL 4.2-10 .8 Not Available [facility] (Lab) [address] [place], [address], 07/24/2023 14:19:50 07/24/19 24 07/24/2023 CBC/C OMPLE TE BLD COUNT W/DIF F red blood cells 4.10 x10'6 /uL 3.80-5 .20 Not Available [facility] (Lab) [address] [place], [address], 07/24/2023 14:19:50 07/24/19 24 07/24/2023 CBC/C OMPLE TE BLD COUNT W/DIF F hemoglobin 12.3 g/dL 12.0-1 5.6 Not Available [facility] (Lab) [address] [place], [address], 07/24/2023 14:19:50 07/24/19 24 07/24/2023 CBC/C OMPLE TE BLD COUNT W/DIF F hematocrit 38.5 % 35.7-4 5.7 Not Available [facility] (Lab) [address] [place], [address], 07/24/2023 14:19:50 07/24/19 24 07/24/2023 CBC/C OMPLE TE BLD COUNT W/DIF F mean red cell volume 93.9 fL 82.0-9 9.0 Not Available [facility] (Lab) [address] [place], [address], 07/24/2023 14:19:50 07/24/19 24 07/24/2023 CBC/C OMPLE TE BLD COUNT W/DIF F mean red cell hemoglobin 30.0 pg 27.0-3 3.0 Not Available [facility] (Lab) [address] [place], [address], 07/24/2023 14:19:50 07/24/19 24 07/24/2023 CBC/C OMPLE TE BLD COUNT W/DIF F mean RBC HGB concentratio n 31.9 g/dL 31.0-3 6.0 Not Available [facility] (Lab) [address] [place], [address], 07/24/2023 14:19:50 07/24/19 24 07/24/2023 CBC/C OMPLE TE BLD COUNT W/DIF F red cell distribution width 13.5 % 11.8-1 5.5 Not Available [facility] (Lab) [address] [place], [address], 07/24/2023 14:19:50 07/24/19 24 07/24/2023 CBC/C OMPLE TE BLD COUNT W/DIF F platelets 108 x10'3 /uL 150-40 0 low Not Available [facility] (Lab) [address] [place], [address], 07/24/2023 14:19:50 07/24/19 24 07/24/2023 CBC/C OMPLE TE BLD COUNT W/DIF F neutrophils 69.6 % 39.0-7 2.0 Not Available [facility] (Lab) [address] [place], [address], 07/24/2023 14:19:50 07/24/19 24 07/24/2023 CBC/C OMPLE TE BLD COUNT W/DIF F lymphocytes 17.1 % 16.0-4 7.0 Not Available [facility] (Lab) [address] [place], [address], 07/24/2023 14:19:50 07/24/19 24 07/24/2023 CBC/C OMPLE TE BLD COUNT W/DIF F monocytes 10.0 % 5.0-12 .0 Not Available [facility] (Lab) [address] [place], [address], 07/24/2023 14:19:50 07/24/19 24 07/24/2023 CBC/C OMPLE TE BLD COUNT W/DIF F eosinophils 2.3 % 1.0-7. 0 Not Available [facility] (Lab) [address] [place], [address], 07/24/2023 14:19:50 07/24/19 24 07/24/2023 CBC/C OMPLE TE BLD COUNT W/DIF F basophils 0.5 % 0.0-2. 0 Not Available [facility] (Lab) [address] [place], [address], 07/24/2023 14:19:50 07/24/19 24 07/24/2023 CBC/C OMPLE TE BLD COUNT W/DIF F immature granulocytes 0.5 % 0.00-0 .50 Not Available [facility] (Lab) [address] [place], [address], 07/24/2023 14:19:50 07/24/19 24 07/24/2023 CBC/C OMPLE TE BLD COUNT W/DIF F neutrophils, absolute count 4.61 x10'3 /uL 1.5-8. 0 Not Available [facility] (Lab) [address] [place], [address], 07/24/2023 14:19:50 07/24/19 24 07/24/2023 CBC/C OMPLE TE BLD COUNT W/DIF F lymphocytes, absolute count 1.13 x10'3 /uL 1.07-3 .43 Not Available [facility] (Lab) [address] [place], [address], 07/24/2023 14:19:50 07/24/19 24 07/24/2023 CBC/C OMPLE TE BLD COUNT W/DIF F monocytes, absolute count 0.66 x10'3 /uL 0.29-0 .99 Not Available [facility] (Lab) [address] [place], [address], 07/24/2023 14:19:50 07/24/19 24 07/24/2023 CBC/C OMPLE TE BLD COUNT W/DIF F eosinophils, absolute count 0.15 x10'3 /uL 0.02-0 .53 Not Available [facility] (Lab) [address] [place], [address], 07/24/2023 14:19:50 07/24/19 24 07/24/2023 CBC/C OMPLE TE BLD COUNT W/DIF F basophils, absolute count 0.03 x10'3 /uL 0.01-0 .08 Not Available [facility] (Lab) [address] [place], [address], 07/24/2023 14:19:50 07/24/19 24 07/24/2023 CBC/C OMPLE TE BLD COUNT W/DIF F immature granulocytes ,absolute 0.03 x10'3 /uL 0.00-0 .05 Not Available [facility] (Lab) [address] [place], [address], 07/24/2023 14:19:50 07/24/19 24 07/24/2023 CBC/C OMPLE TE BLD COUNT W/DIF F nucleated red blood cells 0.0 % -0 Not Available [facility] (Lab) [address] [place], [address], 07/24/2023 14:19:50 07/24/19 24 07/24/2023 CBC/C OMPLE TE BLD COUNT W/DIF F NRBC# 0.00 x10'3 /uL Not Available [facility] (Lab) [address] [place], [address], 07/24/2023 14:19:50 07/24/19 24 07/24/2023 TSH thyroid-stim ulating hormone 0.124 uIU/m L 0.465- 4.680 low Not Available [facility] (Lab) [address] [place], [address], 07/24/2023 17:56:05 07/24/19 24 07/24/2023 T4 FREE free T4 1.87 NG/dL 0.78-2 .19 Not Available [facility] (Lab) [address] [place], [address], 07/24/2023 17:56:25 07/24/19 24 07/24/2023 LIPID PANEL cholesterol 106 mg/dL 140-19 9 low NIH BECKI NSUS RECOM MENDA TION FOR MADELEINE STERO L: ADULT CHILD LOW RISK: <200 <170 BORDE RLINE : <200- 239 ----- HIGH RISK: >240 >200 Not Available [facility] (Lab) [address] [place], [address], 07/24/2023 18:02:47 07/24/19 24 07/24/2023 LIPID PANEL triglyceride s 124 mg/dL 0-150 NIH BECKI NSUS REPOR T RECOM MENDA TION FOR TRIGL YCERI HARLEY: ADULT CHILD LOW RISK: <150 ----- BODER LINE: 150-1 99 ----- HIGH RISK: >200 ----- Not Available [facility] (Lab) [address] [place], [address], 07/24/2023 18:02:47 07/24/1907/24/2023 LIPID PANEL HDL cholesterol 38 mg/dL 40- low Not Available [facility] (Lab) [address] [place], [address], 07/24/2023 18:02:47 07/24/19 24 07/24/2023 LIPID PANEL LDL cholesterol, calculated 43 mg/dL 0-130 NIH BCEKI NSUS REPOR T RECOM MENDA TIONS FOR LDL: ADULT CHILD LOW RISK <130 <110 (OPTI MAL LDL) <100 ----- BORDE RLINE : 130-1 59 ----- HIGH RISK: >160 >130 A TRIGL YCERI DE RESUL T >400 INVAL IDATE S THE CALCU LATIO N FOR LDL FRACT IONAT ION - THE LDL RESUL T WILL NOT BE REPOR YUSUF. Not Available [facility] (Lab) [address] [place], [address], 07/24/2023 18:02:47 07/24/19 24 07/24/2023 COMPR EHENS ITALO METAB OLIC PANEL sodium 140 mmol/ L 137-14 5 Not Available [facility] (Lab) [address] [place], [address], 07/24/2023 18:02:52 07/24/19 24 07/24/2023 COMPR EHENS ITALO METAB OLIC PANEL potassium 3.6 mmol/ L 3.5-5. 1 Not Available [facility] (Lab) [address] [place], [address], 07/24/2023 18:02:52 07/24/19 24 07/24/2023 COMPR EHENS ITALO METAB OLIC PANEL chloride 108 mmol/ L 98-107 high Not Available [facility] (Lab) [address] [place], [address], 07/24/2023 18:02:52 07/24/19 24 07/24/2023 COMPR EHENS ITALO METAB OLIC PANEL carbon dioxide 28 mmol/ L 22-30 Not Available [facility] (Lab) [address] [place], [address], 07/24/2023 18:02:52 07/24/19 24 07/24/2023 COMPR EHENS ITALO METAB OLIC PANEL anion gap 7.6 mmol/ L 14-22 low Not Available [facility] (Lab) [address] [place], [address], 07/24/2023 18:02:52 07/24/19 24 07/24/2023 COMPR EHENS ITALO METAB OLIC PANEL glucose 101 mg/dL 70-99 high Not Available [facility] (Lab) [address] [place], [address], 07/24/2023 18:02:52 07/24/19 24 07/24/2023 COMPR EHENS ITALO METAB OLIC PANEL BUN 11 mg/dL 8-19 Not Available [facility] (Lab) [address] [place], [address], 07/24/2023 18:02:52 07/24/19 24 07/24/2023 COMPR EHENS ITALO METAB OLIC PANEL creatinine 0.80 mg/dL 0.66-1 .25 Not Available [facility] (Lab) [address] [place], [address], 07/24/2023 18:02:52 07/24/19 24 07/24/2023 COMPR EHENS ITALO METAB OLIC PANEL GFR >60 Refer ence Range : Startex ge GFR Healt hy Adult : >60 [...] calcu lator is avail able on the [facility] websi te: https :[email or web address] [email or web address].o john/pr ofess ional s/kdo qi/gf r_cal culat or Not Available [facility] (Lab) [address] [place], [address], 07/24/2023 18:02:52 07/24/19 24 07/24/2023 COMPR EHENS ITALO METAB OLIC PANEL alkaline phosphatase 84 U/L 38-126 Not Available [facility] (Lab) [address] [place], [address], 07/24/2023 18:02:52 07/24/19 24 07/24/2023 COMPR EHENS ITALO METAB OLIC PANEL alanine aminotransfe rase 15 U/L 0-35 Not Available [facility] (Lab) [address] [place], [address], 07/24/2023 18:02:52 07/24/19 24 07/24/2023 COMPR EHENS ITALO METAB OLIC PANEL aspartate aminotransfe rase 24 U/L 15-37 Not Available [facility] (Lab) [address] [place], [address], 07/24/2023 18:02:52 07/24/19 24 07/24/2023 COMPR EHENS ITALO METAB OLIC PANEL bilirubin, total 1.40 mg/dL 0.20-1 .30 high Not Available [facility] (Lab) [address] [place], [address], 07/24/2023 18:02:52 07/24/19 24 07/24/2023 COMPR EHENS ITALO METAB OLIC PANEL calcium 8.8 mg/dL 8.4-10 .2 Not Available [facility] (Lab) [address] [place], [address], 07/24/2023 18:02:52 07/24/19 24 07/24/2023 COMPR EHENS ITALO METAB OLIC PANEL total protein 5.9 g/dL 6.3-8. 2 low Not Available [facility] (Lab) [address] [place], [address], 07/24/2023 18:02:52 07/24/19 24 07/24/2023 COMPR EHENS ITALO METAB OLIC PANEL albumin 4.0 g/dL 3.0-4. 4 Not Available [facility] (Lab) [address] [place], [address], 07/24/2023 18:02:52 07/24/19 24 07/24/2023 COMPR EHENS ITALO METAB OLIC PANEL globulin 1.9 g/dL 2.6-4. 2 low Not Available [facility] (Lab) [address] [place], [address], 07/24/2023 18:02:52 07/24/19 24 07/24/2023 COMPR EHENS ITALO METAB OLIC PANEL A/G ratio 2.1 ratio 1.0-2. 0 high Not Available [facility] (Lab) [address] [place], [address], 07/24/2023 18:02:52 08/12/19 24 08/12/2023 BASIC METAB OLIC PANEL sodium 140 mmol/ L 137-14 5 Not Available [facility] (Lab) [address] [place], [address], 08/12/2023 15:47:29 08/12/19 24 08/12/2023 BASIC METAB OLIC PANEL potassium 4.1 mmol/ L 3.5-5. 1 Not Available [facility] (Lab) [address] [place], [address], 08/12/2023 15:47:29 08/12/19 24 08/12/2023 BASIC METAB OLIC PANEL chloride 108 mmol/ L 98-107 high Not Available [facility] (Lab) [address] [place], [address], 08/12/2023 15:47:29 08/12/19 24 08/12/2023 BASIC METAB OLIC PANEL carbon dioxide 26 mmol/ L 22-30 Not Available [facility] (Lab) [address] [place], [address], 08/12/2023 15:47:29 08/12/19 24 08/12/2023 BASIC METAB OLIC PANEL anion gap 10.1 mmol/ L 14-22 low Not Available [facility] (Lab) [address] [place], [address], 08/12/2023 15:47:29 08/12/19 24 08/12/2023 BASIC METAB OLIC PANEL glucose 91 mg/dL 70-99 Not Available [facility] (Lab) [address] [place], [address], 08/12/2023 15:47:29 08/12/19 24 08/12/2023 BASIC METAB OLIC PANEL BUN 13 mg/dL 8-19 Not Available [facility] (Lab) [address] [place], [address], 08/12/2023 15:47:29 08/12/19 24 08/12/2023 BASIC METAB OLIC PANEL creatinine 0.90 mg/dL 0.66-1 .25 Not Available [facility] (Lab) [address] [place], [address], 08/12/2023 15:47:29 08/12/19 24 08/12/2023 BASIC METAB OLIC PANEL GFR 59 Refer ence Range : Startex ge GFR Healt hy Adult : >60 [...] calcu lator is avail able on the [facility] websi te: https :[email or web address] [email or web address].brayan rasmussen.sharon lopez/pr ofess ional s/kdo qi/gf r_cal culat or Not Available [facility] (Lab) [address] [place], [address], 08/12/2023 15:47:29 08/12/19 24 08/12/2023 BASIC METAB OLIC PANEL calcium 9.0 mg/dL 8.4-10 .2 Not Available [facility] (Lab) [address] [place], [address], 08/12/2023 15:47:29 11/27/19 24 11/27/2023 CBC/C OMPLE TE BLD COUNT W/DIF F white blood cells 4.2 x10'3 /uL 4.2-10 .8 Not Available [facility] (Lab) [address] [place], [address], 11/27/2023 13:54:53 11/27/19 24 11/27/2023 CBC/C OMPLE TE BLD COUNT W/DIF F red blood cells 4.16 x10'6 /uL 3.80-5 .20 Not Available [facility] (Lab) [address] [place], [address], 11/27/2023 13:54:53 11/27/19 24 11/27/2023 CBC/C OMPLE TE BLD COUNT W/DIF F hemoglobin 12.7 g/dL 12.0-1 5.6 Not Available [facility] (Lab) [address] [place], [address], 11/27/2023 13:54:53 11/27/19 24 11/27/2023 CBC/C OMPLE TE BLD COUNT W/DIF F hematocrit 39.8 % 35.7-4 5.7 Not Available [facility] (Lab) [address] [place], [address], 11/27/2023 13:54:53 11/27/19 24 11/27/2023 CBC/C OMPLE TE BLD COUNT W/DIF F mean red cell volume 95.7 fL 82.0-9 9.0 Not Available [facility] (Lab) [address] [place], [address], 11/27/2023 13:54:53 11/27/19 24 11/27/2023 CBC/C OMPLE TE BLD COUNT W/DIF F mean red cell hemoglobin 30.5 pg 27.0-3 3.0 Not Available [facility] (Lab) [address] [place], [address], 11/27/2023 13:54:53 11/27/19 24 11/27/2023 CBC/C OMPLE TE BLD COUNT W/DIF F mean RBC HGB concentratio n 31.9 g/dL 31.0-3 6.0 Not Available [facility] (Lab) [address] [place], [address], 11/27/2023 13:54:53 11/27/19 24 11/27/2023 CBC/C OMPLE TE BLD COUNT W/DIF F red cell distribution width 13.5 % 11.8-1 5.5 Not Available [facility] (Lab) [address] [place], [address], 11/27/2023 13:54:53 11/27/19 24 11/27/2023 CBC/C OMPLE TE BLD COUNT W/DIF F platelets 109 x10'3 /uL 150-40 0 low Not Available [facility] (Lab) [address] [place], [address], 11/27/2023 13:54:53 11/27/19 24 11/27/2023 CBC/C OMPLE TE BLD COUNT W/DIF F mean platelet volume 13.3 fL 9.0-12 .4 high Not Available [facility] (Lab) [address] [place], [address], 11/27/2023 13:54:53 11/27/19 24 11/27/2023 CBC/C OMPLE TE BLD COUNT W/DIF F neutrophils 55.1 % 39.0-7 2.0 Not Available [facility] (Lab) [address] [place], [address], 11/27/2023 13:54:53 11/27/19 24 11/27/2023 CBC/C OMPLE TE BLD COUNT W/DIF F lymphocytes 29.8 % 16.0-4 7.0 Not Available [facility] (Lab) [address] [place], [address], 11/27/2023 13:54:53 11/27/19 24 11/27/2023 CBC/C OMPLE TE BLD COUNT W/DIF F monocytes 10.5 % 5.0-12 .0 Not Available [facility] (Lab) [address] [place], [address], 11/27/2023 13:54:53 11/27/19 24 11/27/2023 CBC/C OMPLE TE BLD COUNT W/DIF F eosinophils 3.6 % 1.0-7. 0 Not Available [facility] (Lab) [address] [place], [address], 11/27/2023 13:54:53 11/27/19 24 11/27/2023 CBC/C OMPLE TE BLD COUNT W/DIF F basophils 0.5 % 0.0-2. 0 Not Available [facility] (Lab) [address] [place], [address], 11/27/2023 13:54:53 11/27/19 24 11/27/2023 CBC/C OMPLE TE BLD COUNT W/DIF F immature granulocytes 0.5 % 0.00-0 .50 Not Available [facility] (Lab) [address] [place], [address], 11/27/2023 13:54:53 11/27/19 24 11/27/2023 CBC/C OMPLE TE BLD COUNT W/DIF F neutrophils, absolute count 2.31 x10'3 /uL 1.5-8. 0 Not Available [facility] (Lab) [address] [place], [address], 11/27/2023 13:54:53 11/27/19 24 11/27/2023 CBC/C OMPLE TE BLD COUNT W/DIF F lymphocytes, absolute count 1.25 x10'3 /uL 1.07-3 .43 Not Available [facility] (Lab) [address] [place], [address], 11/27/2023 13:54:53 11/27/19 24 11/27/2023 CBC/C OMPLE TE BLD COUNT W/DIF F monocytes, absolute count 0.44 x10'3 /uL 0.29-0 .99 Not Available [facility] (Lab) [address] [place], [address], 11/27/2023 13:54:53 11/27/19 24 11/27/2023 CBC/C OMPLE TE BLD COUNT W/DIF F eosinophils, absolute count 0.15 x10'3 /uL 0.02-0 .53 Not Available [facility] (Lab) [address] [place], [address], 11/27/2023 13:54:53 11/27/19 24 11/27/2023 CBC/C OMPLE TE BLD COUNT W/DIF F basophils, absolute count 0.02 x10'3 /uL 0.01-0 .08 Not Available [facility] (Lab) [address] [place], [address], 11/27/2023 13:54:53 11/27/19 24 11/27/2023 CBC/C OMPLE TE BLD COUNT W/DIF F immature granulocytes ,absolute 0.02 x10'3 /uL 0.00-0 .05 Not Available [facility] (Lab) [address] [place], [address], 11/27/2023 13:54:53 11/27/19 24 11/27/2023 CBC/C OMPLE TE BLD COUNT W/DIF F nucleated red blood cells 0.0 % -0 Not Available [facility] (Lab) [address] [place], [address], 11/27/2023 13:54:53 11/27/19 24 11/27/2023 CBC/C OMPLE TE BLD COUNT W/DIF F NRBC# 0.00 x10'3 /uL Not Available [facility] (Lab) [address] [place], [address], 11/27/2023 13:54:53 11/27/19 24 11/27/2023 T4 FREE free T4 1.74 NG/dL 0.78-2 .19 Not Available [facility] (Lab) [address] [place], [address], 11/27/2023 16:34:17 11/27/19 24 11/27/2023 COMPR EHENS ITALO METAB OLIC PANEL sodium 138 mmol/ L 137-14 5 Not Available [facility] (Lab) [address] [place], [address], 11/27/2023 16:32:25 11/27/19 24 11/27/2023 COMPR EHENS ITALO METAB OLIC PANEL potassium 4.1 mmol/ L 3.5-5. 1 Not Available [facility] (Lab) [address] [place], [address], 11/27/2023 16:32:25 11/27/19 24 11/27/2023 COMPR EHENS ITALO METAB OLIC PANEL chloride 112 mmol/ L 98-107 high Not Available [facility] (Lab) [address] [place], [address], 11/27/2023 16:32:25 11/27/19 24 11/27/2023 COMPR EHENS ITALO METAB OLIC PANEL carbon dioxide 25 mmol/ L 22-30 Not Available [facility] (Lab) [address] [place], [address], 11/27/2023 16:32:25 11/27/19 24 11/27/2023 COMPR EHENS ITALO METAB OLIC PANEL anion gap 5.1 mmol/ L 14-22 low Not Available [facility] (Lab) [address] [place], [address], 11/27/2023 16:32:25 11/27/19 24 11/27/2023 COMPR EHENS ITALO METAB OLIC PANEL glucose 102 mg/dL 70-99 high Not Available [facility] (Lab) [address] [place], [address], 11/27/2023 16:32:25 11/27/19 24 11/27/2023 COMPR EHENS ITALO METAB OLIC PANEL BUN 20 mg/dL 8-19 high Not Available [facility] (Lab) [address] [place], [address], 11/27/2023 16:32:25 11/27/19 24 11/27/2023 COMPR EHENS ITALO METAB OLIC PANEL creatinine 0.94 mg/dL 0.66-1 .25 Not Available [facility] (Lab) [address] [place], [address], 11/27/2023 16:32:25 11/27/19 24 11/27/2023 COMPR EHENS ITALO METAB OLIC PANEL GFR 56 Refer ence Range : Startex ge GFR Healt hy Adult : >60 [...] or ethni c subgr oups, such as Hisnc nics. Outsi de the valid ated paco [...] s/kdo qi/gf r_cal culat or Not Available [facility] (Lab) [address] [place], [address], 11/27/2023 16:32:25 11/27/19 24 11/27/2023 COMPR EHENS ITALO METAB OLIC PANEL alkaline phosphatase 89 U/L 38-126 Not Available [facility] (Lab) [address] [place], [address], 11/27/2023 16:32:25 11/27/19 24 11/27/2023 COMPR EHENS ITALO METAB OLIC PANEL alanine aminotransfe rase 12 U/L 0-35 Not Available [facility] (Lab) [address] [place], [address], 11/27/2023 16:32:25 11/27/19 24 11/27/2023 COMPR EHENS ITALO METAB OLIC PANEL aspartate aminotransfe rase 24 U/L 15-37 Not Available [facility] (Lab) [address] [place], [address], 11/27/2023 16:32:25 11/27/19 24 11/27/2023 COMPR EHENS ITALO METAB OLIC PANEL bilirubin, total 1.60 mg/dL 0.20-1 .30 high Not Available [facility] (Lab) [address] [place], [address], 11/27/2023 16:32:25 11/27/19 24 11/27/2023 COMPR EHENS ITALO METAB OLIC PANEL calcium 9.1 mg/dL 8.4-10 .2 Not Available [facility] [facility] [address] [place], [address], 11/27/2023 16:32:25 11/27/19 24 11/27/2023 COMPR EHENS ITALO METAB OLIC PANEL total protein 6.1 g/dL 6.3-8. 2 low Not Available [facility] (Lab) [address] [place], [address], 11/27/2023 16:32:25 11/27/19 24 11/27/2023 COMPR EHENS ITALO METAB OLIC PANEL albumin 3.9 g/dL 3.0-4. 4 Not Available [facility] (Lab) [address] [place], [address], 11/27/2023 16:32:25 11/27/19 24 11/27/2023 COMPR EHENS ITALO METAB OLIC PANEL globulin 2.2 g/dL 2.6-4. 2 low Not Available [facility] (Lab) [address] [place], [address], 11/27/2023 16:32:25 11/27/19 24 11/27/2023 COMPR EHENS ITALO METAB OLIC PANEL A/G ratio 1.8 ratio 1.0-2. 0 Not Available [facility] (Lab) [address] [place], [address], 11/27/2023 16:32:25 11/27/19 24 11/27/2023 LIPID PANEL cholesterol 112 mg/dL 140-19 9 low NIH BECKI NSUS RECOM MENDA TION FOR MADELEINE STERO L: ADULT CHILD LOW RISK: <200 <170 BORDE RLINE : <200- 239 ----- HIGH RISK: >240 >200 Not Available [facility] (Lab) [address] [place], [address], 11/27/2023 16:32:30 11/27/19 24 11/27/2023 LIPID PANEL triglyceride s 139 mg/dL 0-150 NIH BECKI NSUS REPOR T RECOM MENDA TION FOR TRIGL YCERI HARLEY: ADULT CHILD LOW RISK: <150 ----- BODER LINE: 150-1 99 ----- HIGH RISK: >200 ----- Not Available [facility] (Lab) [address] [place], [address], 11/27/2023 16:32:30 11/27/19 24 11/27/2023 LIPID PANEL HDL cholesterol 36 mg/dL 40- low Not Available [facility] (Lab) [address] [place], [address], 11/27/2023 16:32:30 11/27/19 24 11/27/2023 LIPID PANEL [...] WILL NOT BE REPOR YUSUF. Not Available [facility] (Lab) [address] [place], [address], 11/27/2023 16:32:30 11/27/19 24 11/27/2023 TSH thyroid-stim ulating hormone 0.061 uIU/m L 0.465- 4.680 low Not Available [facility] (Lab) [address] [place], [address], 11/27/2023 16:45:53 12/02/19 24 12/02/2023 VITAM IN B12 (DIAZ DARLYN ) vb12 >1000 pg/mL 239-93 1 high Not Available [facility] (Lab) [address] [place], [address], 12/02/2023 13:21:02 04/06/20 24 04/06/2024 LIPID PANEL , STAND CARLY cholesterol, total 97 mg/dL <200 normal Not Available [facility] [address] [place] [address] [place], [address], 04/06/2024 19:58:48 04/06/20 24 04/06/2024 LIPID PANEL , STAND CARLY HDL cholesterol 32 mg/dL > or = 50 low Not Available [address] [address] [place], [address], 04/06/2024 19:58:48 04/06/20 24 04/06/2024 LIPID PANEL , STAND CARLY triglyceride s 82 mg/dL <150 normal Not Available [facility] [address] [place], [address], 04/06/2024 19:58:48 04/06/20 24 04/06/2024 LIPID PANEL [...] 310(1 9): 2061- 2068 (http ://ed ucati on.[employer]. com/f aq/FA Q164) Not Available [facility] [address] [address], [place], [address], 04/06/2024 19:58:48 04/06/20 24 04/06/2024 LIPID PANEL , STAND CARLY chol/HDLC ratio 3.0 (calc ) <5.0 normal Not Available [facility] [address] [place], [address], 04/06/2024 19:58:48 04/06/20 24 04/06/2024 LIPID PANEL , STAND CARLY non HDL cholesterol 65 mg/dL _(keyona c) <130 normal For patie nts with diabe cielo plus 1 major ASCVD risk facto r, treat ing to a non-H DL-C goal of <100 mg/dL (LDL- C of <70 mg/dL ) is consi dered a thera pepapo c optio n. Not Available [facility] [address] [place], [address], 04/06/2024 19:58:48 04/06/20 24 04/06/2024 COMPR EHENS ITALO METAB OLIC PANEL glucose 96 mg/dL 65-99 normal Fasti ng refer ence inter tim Not Available [address], [address], 04/06/2024 19:58:50 04/06/20 24 04/06/2024 COMPR EHENS ITALO METAB OLIC PANEL urea nitrogen (BUN) 14 mg/dL 7-25 normal Not Available [address], [address], 04/06/2024 19:58:50 04/06/20 24 04/06/2024 COMPR EHENS ITALO METAB OLIC PANEL creatinine 0.98 mg/dL 0.60-0 .95 high Not Available [address], [address], 04/06/2024 19:58:50 04/06/20 24 04/06/2024 COMPR EHENS ITALO METAB OLIC PANEL eGFR 56 mL/mi n/1.7 3m2 > or = 60 low Not Available [address], [address], 04/06/2024 19:58:50 04/06/20 24 04/06/2024 COMPR EHENS ITALO METAB OLIC PANEL BUN/creatini ne ratio 14 (calc ) 6-22 normal Not Available [address], [address], 04/06/2024 19:58:50 04/06/20 24 04/06/2024 COMPR EHENS ITALO METAB OLIC PANEL sodium 144 mmol/ L 135-14 6 normal Not Available [address], [address], 04/06/2024 19:58:50 04/06/20 24 04/06/2024 COMPR EHENS ITALO METAB OLIC PANEL potassium 4.0 mmol/ L 3.5-5. 3 normal Not Available [address] [address] [place], [address], 04/06/2024 19:58:50 04/06/20 24 04/06/2024 COMPR EHENS ITALO METAB OLIC PANEL chloride 109 mmol/ L 98-110 normal Not Available [address] [place], [address], 04/06/2024 19:58:50 04/06/20 24 04/06/2024 COMPR EHENS ITALO METAB OLIC PANEL carbon dioxide 26 mmol/ L 20-32 normal Not Available [address], [address], 04/06/2024 19:58:50 04/06/20 24 04/06/2024 COMPR EHENS ITALO METAB OLIC PANEL calcium 8.9 mg/dL 8.6-10 .4 normal Not Available [address], [address], 04/06/2024 19:58:50 04/06/20 24 04/06/2024 COMPR EHENS ITALO METAB OLIC PANEL protein, total 5.8 g/dL 6.1-8. 1 low Not Available [address], [address], 04/06/2024 19:58:50 04/06/20 24 04/06/2024 COMPR EHENS ITALO METAB OLIC PANEL albumin 3.8 g/dL 3.6-5. 1 normal Not Available [address] [place], [address], 04/06/2024 19:58:50 04/06/20 24 04/06/2024 COMPR EHENS ITALO METAB OLIC PANEL globulin 2.0 g/dL_ (calc ) 1.9-3. 7 normal Not Available [address], [address], 04/06/2024 19:58:50 04/06/20 24 04/06/2024 COMPR EHENS ITALO METAB OLIC PANEL albumin/glob ulin ratio 1.9 (calc ) 1.0-2. 5 normal Not Available [address], [address], 04/06/2024 19:58:50 04/06/20 24 04/06/2024 COMPR EHENS ITALO METAB OLIC PANEL bilirubin, total 1.4 mg/dL 0.2-1. 2 high Not Available [address], [address], 04/06/2024 19:58:50 04/06/20 24 04/06/2024 COMPR EHENS ITALO METAB OLIC PANEL alkaline phosphatase 88 U/L 37-153 normal Not Available [address], [address], 04/06/2024 19:58:50 04/06/20 24 04/06/2024 COMPR EHENS ITALO METAB OLIC PANEL AST 11 U/L 10-35 normal Not Available [address], [address], 04/06/2024 19:58:50 04/06/20 24 04/06/2024 COMPR EHENS ITALO METAB OLIC PANEL ALT 6 U/L 6-29 normal Not Available [address], [address], 04/06/2024 19:58:50 04/06/20 24 04/06/2024 CBC (INCL UDES DIFF/ PLT) white blood cell count 4.3 thous and/u L 3.8-10 .8 normal Not Available [address], [address], 04/06/2024 19:58:51 04/06/20 24 04/06/2024 CBC (INCL UDES DIFF/ PLT) red blood cell count 3.89 maddie on/uL 3.80-5 .10 normal Not Available [address], [address], 04/06/2024 19:58:51 04/06/20 24 04/06/2024 CBC (INCL UDES DIFF/ PLT) hemoglobin 12.1 g/dL 11.7-1 5.5 normal Not Available [address], [address], 04/06/2024 19:58:51 04/06/20 24 04/06/2024 CBC (INCL UDES DIFF/ PLT) hematocrit 38.6 % 35.0-4 5.0 normal Not Available [address], [address], 04/06/2024 19:58:51 04/06/20 24 04/06/2024 CBC (INCL UDES DIFF/ PLT) MCV 99.2 fL 80.0-1 00.0 normal Not Available [address], [address], 04/06/2024 19:58:51 04/06/20 24 04/06/2024 CBC (INCL UDES DIFF/ PLT) MCH 31.1 pg 27.0-3 3.0 normal Not Available [address], [address], 04/06/2024 19:58:51 04/06/20 24 04/06/2024 CBC (INCL [...] nt's clini keyona condi tion. Not Available [facility] - [address], [address], 04/06/2024 19:58:51 04/06/20 24 04/06/2024 CBC (INCL UDES DIFF/ PLT) RDW 12.9 % 11.0-1 5.0 normal Not Available [address], [address], 04/06/2024 19:58:51 04/06/20 24 04/06/2024 CBC (INCL UDES DIFF/ PLT) platelet count 100 thous and/u L 140-40 0 low Not Available [facility] [address], [address], 04/06/2024 19:58:51 04/06/20 24 04/06/2024 CBC (INCL UDES DIFF/ PLT) MPV 13.0 fL 7.5-12 .5 high Not Available [address], [address], 04/06/2024 19:58:51 04/06/20 24 04/06/2024 CBC (INCL UDES DIFF/ PLT) absolute neutrophils 2670 cells /uL 1500-7 800 normal Not Available [address], [address], 04/06/2024 19:58:51 04/06/20 24 04/06/2024 CBC (INCL UDES DIFF/ PLT) absolute lymphocytes 920 cells /uL 850-39 00 normal Not Available [address], [address], 04/06/2024 19:58:51 04/06/20 24 04/06/2024 CBC (INCL UDES DIFF/ PLT) absolute monocytes 490 cells /uL 200-95 0 normal Not Available [address], [address], 04/06/2024 19:58:51 04/06/20 24 04/06/2024 CBC (INCL UDES DIFF/ PLT) absolute eosinophils 211 cells /uL 15-500 normal Not Available [address], [address], 04/06/2024 19:58:51 04/06/20 24 04/06/2024 CBC (INCL UDES DIFF/ PLT) absolute basophils 9 cells /uL 0-200 normal Not Available [address], [address], 04/06/2024 19:58:51 04/06/20 24 04/06/2024 CBC (INCL UDES DIFF/ PLT) neutrophils 62.1 % normal Not Available [address], [address], 04/06/2024 19:58:51 04/06/20 24 04/06/2024 CBC (INCL UDES DIFF/ PLT) lymphocytes 21.4 % normal Not Available [address], [address], 04/06/2024 19:58:51 04/06/20 24 04/06/2024 CBC (INCL UDES DIFF/ PLT) monocytes 11.4 % normal Not Available [address], [address], 04/06/2024 19:58:51 04/06/20 24 04/06/2024 CBC (INCL UDES DIFF/ PLT) eosinophils 4.9 % normal Not Available [address], [address], 04/06/2024 19:58:51 04/06/20 24 04/06/2024 CBC (INCL UDES DIFF/ PLT) basophils 0.2 % normal Not Available [address], [address], 04/06/2024 19:58:51 04/06/20 24 04/06/2024 T4, FREE T4, free 1.3 NG/dL 0.8-1. 8 normal Not Available [address], [address], 04/06/2024 19:58:52 04/06/20 24 04/06/2024 TSH TSH 0.25 mIU/L 0.40-4 .50 low Not Available [address], [address], 04/06/2024 19:58:54 05/19/19 25 05/20/2024 RETIC ULOCY TE COUNT reticulocyte count, automated 1.2 % normal Not Available [address], [address], 05/20/2024 03:48:07 05/19/1905/20/2024 RETIC ULOCY TE COUNT reticulocyte , absolute 26784 cells /uL [address] normal Not Available [address], [address], 05/20/2024 03:48:07 05/19/1905/20/2024 CBC (INCL UDES DIFF/ PLT) white blood cell count 5.1 thous and/u L 3.8-10 .8 normal Not Available [address], [address], 05/20/2024 03:48:08 05/19/1905/20/2024 CBC (INCL UDES DIFF/ PLT) red blood cell count 4.19 maddie on/uL 3.80-5 .10 normal Not Available [address], [address], 05/20/2024 03:48:08 05/19/1905/20/2024 CBC (INCL UDES DIFF/ PLT) hemoglobin 12.9 g/dL 11.7-1 5.5 normal Not Available [address], [address], 05/20/2024 03:48:08 05/19/1905/20/2024 CBC (INCL UDES DIFF/ PLT) hematocrit 41.9 % 35.0-4 5.0 normal Not Available [address], [address], 05/20/2024 03:48:08 05/19/1905/20/2024 CBC (INCL UDES DIFF/ PLT) MCV 100.0 fL 80.0-1 00.0 normal Not Available [address], [address], 05/20/2024 03:48:08 05/19/1905/20/2024 CBC (INCL UDES DIFF/ PLT) MCH 30.8 pg 27.0-3 3.0 normal Not Available [address], [address], 05/20/2024 03:48:08 05/19/1905/20/2024 CBC (INCL UDES DIFF/ [...] nt's clini keyona condi tion. Not Available [address], [address], 05/20/2024 03:48:08 05/19/1905/20/2024 CBC (INCL UDES DIFF/ PLT) RDW 13.0 % 11.0-1 5.0 normal Not Available [address], [address], 05/20/2024 03:48:08 05/19/1905/20/2024 CBC (INCL UDES DIFF/ PLT) platelet count 88 thous and/u L 140-40 0 low Not Available [address], [address], 05/20/2024 03:48:08 05/19/1905/20/2024 CBC (INCL UDES DIFF/ PLT) MPV 13.9 fL 7.5-12 .5 high Not Available [address], [address], 05/20/2024 03:48:08 05/19/1905/20/2024 CBC (INCL UDES DIFF/ PLT) absolute neutrophils 3330 cells /uL 1500-7 800 normal Not Available [address], [address], 05/20/2024 03:48:08 05/19/1905/20/2024 CBC (INCL UDES DIFF/ PLT) absolute lymphocytes 1122 cells /uL 850-39 00 normal Not Available [address], [address], 05/20/2024 03:48:08 05/19/1905/20/2024 CBC (INCL UDES DIFF/ PLT) absolute monocytes 459 cells /uL 200-95 0 normal Not Available [address], [address], 05/20/2024 03:48:08 05/19/1905/20/2024 CBC (INCL UDES DIFF/ PLT) absolute eosinophils 168 cells /uL 15-500 normal Not Available [employer] [address], [address], 05/20/2024 03:48:08 05/19/1905/20/2024 CBC (INCL UDES DIFF/ PLT) absolute basophils 20 cells /uL 0-200 normal Not Available [employer] [address], [address], 05/20/2024 03:48:08 05/19/1905/20/2024 CBC (INCL UDES DIFF/ PLT) neutrophils 65.3 % normal Not Available [address], [address], 05/20/2024 03:48:08 05/19/1905/20/2024 CBC (INCL UDES DIFF/ PLT) lymphocytes 22.0 % normal Not Available [facility] [address], [address], 05/20/2024 03:48:08 05/19/1905/20/2024 CBC (INCL UDES DIFF/ PLT) monocytes 9.0 % normal Not Available [facility] [address], [address], 05/20/2024 03:48:08 05/19/1905/20/2024 CBC (INCL UDES DIFF/ PLT) eosinophils 3.3 % normal Not Available [facility] [address], [address], 05/20/2024 03:48:08 05/19/1905/20/2024 CBC (INCL UDES DIFF/ PLT) basophils 0.4 % normal Not Available [facility] [address], [address], 05/20/2024 03:48:08 05/19/1905/20/2024 VITAM IN B12/F OLATE , SERUM PANEL vitamin B12 1685 pg/mL 200-11 00 high Not Available [facility] [address], [address], 05/20/2024 03:48:09 05/19/1905/20/2024 VITAM IN B12/F OLATE , SERUM PANEL folate, serum 10.6 NG/mL normal Refer ence Range Low: <3.4 Borde rline : 3.4-5 .4 Clara l: >5.4 Not Available [facility] [address] [address] [address] , [place], [address], 05/20/2024 03:48:09 07/31/19 24 07/31/2023 XR, chest No observ ation record ed. [address], [place], [address], 07/31/2023 16:02:29 12/16/19 24 12/16/2023 XR, pelvi s No observ ation record ed. [address], [place], [address], 12/19/2023 17:18:52 12/17/19 24 12/17/2023 XR, hip + pelvi s, bilat eral No observ ation record ed. [address], [place], [address], 12/19/2023 17:19:30 12/20/19 24 12/20/2023 XR, chest , 1 view No observ ation record ed. [address], [place], [address], 12/20/2023 16:53:15 06/26/19 25 06/25/2024 XR, shoul nahomy, 1 view No observ ation record ed. [address], [place], [address], 06/25/2024 16:17:55 06/26/19 25 06/25/2024 CT, chest , w/o contr ast No observ ation record ed. [address], [place], [address], 06/25/2024 16:46:47 07/12/19 25 07/11/2024 US, abdom en No observ ation record ed. [address], [place], [address], 07/11/2024 13:43:41 Result Notes None recorded. Problems Name Problem SNOMED Code Status Onset Date Resolution Date Notes Provider Name and Address Organization Details Recorded Time Hyperchole sterolemia 80682426 Active Not Available [facility] 3 06:58:07 Anxiety disorder 423995601 Active Not Available [facility] 3 06:58:07 Postablati ve hypothyroi dism 231552914 Completed Not Available [facility] 3 06:58:07 Mass of neck 734778613 Active 2021 Not Available [facility] 3 06:58:07 Lymphadeno damian 92376018 Active 2021 Not Available [facility] 3 06:58:07 Migraine 91183732 Active Not Available [facility] 3 06:58:07 Neuropathy 841019163 Active 2019 Not Available [facility] 3 06:58:07 Vertigo 480186413 Active Not Available [facility] 3 06:58:07 Hypothyroi dism 31473641 Active Not Available [facility] 3 06:58:07 Congestive heart failure 72403862 Active 2020 Not Available [facility] 3 06:58:07 Atrial fibrillati on 69394636 Active 2021 Not Available [facility] 3 06:58:07 Initial insomnia 64874377 Active 2017 Not Available [facility] 3 06:58:07 Swollen abdomen 48321868 Active Not Available [facility] 3 06:58:07 Abscess of neck 0206181 Active 2021 Not Available [facility] 3 06:58:07 Fatigue 26287964 Active Not Available [facility] 3 06:58:07 Otitis media 73150791 Active 2022 Adarsh Tan MD [address], [facility] [address], [place], [address] , [facility] [employer] [facility] 3 11:46:53 Acute pharyngiti s 114013428 Active 2022 Adarsh Tan MD [address], [address], [place], [address] , [place] [facility] 3 11:05:13 Vitamin D deficiency 76320487 Active 2022 Adarsh Tan MD [address], [address], [place], [address] , [place] [facility] 3 11:06:38 Anemia 345542051 Active 2022 Tammie Pope null, [place] [facility] 3 16:14:43 Cough 99214609 Active 2023 Adarsh Tan MD [address], [address], [place], [address] , [place] [facility] 4 10:30:41 Hypokalemi a 40125900 Active 2023 Barbara Littlejohn CMA null, [place] [facility] 4 11:07:29 Overactive urinary bladder 667848595 Active 2023 Barbara Littlejohn CMA null, [place] [facility] 4 11:05:16 Acute sinusitis 11266007 Active 2023 Adasrh Tan MD [address], [address], [place], [address] , [place] [facility] 4 15:13:51 Thrombocyt openic disorder 819272163 Active 2023 Adarsh Tan MD [address], [address], [place], [address] , [place] [facility] 4 12:51:10 Dementia 84024820 Active 2023 Barbara Littlejohn CMA null, [place] [facility] 4 16:50:41 Acute bronchitis 84579510 Active 2024 Adarsh Tan MD [address], [address], [place], [address] , [place] [facility] 5 11:21:23 Essential thrombocyt hemia 254746373 Active 2024 NENA Delgado, [facility] [employer] [facility] 12:56:04 Problem Notes None recorded. Procedures Surgical History Date Name Laterality Status Provider Name and Address Organization Details Recorded Time 4 Medicare Wellness CPT Code, subsequent completed Junie Lee RN [facility] [employer] [facility] 01/15/2024 11:05:43 4 Nail Debridement completed Javier Yoder DPM [address], [address], [place], [address], [facility] [employer] [facility] 11/04/2023 15:12:59 4 Debridement of Callus or Nolan completed Javier Yoder DPM [address], [address], [place], [address], [facility] [employer] [facility] 11/04/2023 15:13:22 3 Medicare Wellness CPT Code, subsequent completed Junie Lee RN [facility] [employer] [facility] 12/05/2022 10:51:58 Imaging Results Imaging Date Name Status LastModified by Organiz ation Details LastModified Time 07/31/2023 XR, chest completed [email or web address] [address] [place] [address], [address], 07/31/2023 16:02:29 12/16/2023 XR, pelvis completed [email or web address] [address] [place] [address], [address], 12/19/2023 17:18:52 12/17/2023 XR, hip + pelvis, bilateral completed [email or web address] [address] [place] [address], [address], 12/19/2023 17:19:30 12/20/2023 XR, chest, 1 view completed [address] [place] [address], [address], 12/20/2023 16:53:15 06/25/2024 XR, shoulder, 1 view completed [address], [address], 06/25/2024 16:17:55 06/25/2024 CT, chest, w/o contrast completed [address], [place], [address], 06/25/2024 16:46:47 07/11/2024 US, abdomen completed [address], [place], [address], 07/11/2024 13:43:41 Procedure Notes None recorded. Medical Equipment None Reported. Allergies Allergen ID Allergen Name Allergen Category Reaction Reaction Severity Criticality Documentation Date Start Date Code Code System Note Provider Name and Address Organization Details Recorded Time 13989 Tamiflu medicatio n rash Not available Not available 06/20/2022 72009 7 RxNorm Not Available [facility] 3 07:01:37 51306 Robitussi n medicatio n other Not available Not available 06/20/2022 52261 2 RxNorm facia l swell ing Not Available [facility] 3 07:01:37 Medications Name Sig Start Date [...] Updated DateTime 4 158.75 cm 23 kg/m2 67849.8 2 g 76 /min 97 [degF] 93 % 93 % 120 mm[Hg] 80 mm[Hg] Tammie Pope [place] [facility] 4 10:58:32 Date Recorded Body height Body mass index (BMI) Body weight Oxygen saturation Oxygen saturation in Arterial blood by Pulse oximetry Body temperature Provider Name and Address Organization Details Last Updated DateTime 4 158.75 cm 23 kg/m2 53154.8 2 g 95 % 95 % 98.1 [degF] Benoit Ng [facility] [employer] [facility] 4 11:21:55 Date Recorded Body height Body mass index (BMI) Body weight Heart rate Body temperature Oxygen saturation Oxygen saturation in Arterial blood by Pulse oximetry Systolic blood pressure Diastolic blood pressure Provider Name and Address Organization Details Last Updated DateTime 4 158.75 cm 22.1 kg/m2 87007.8 6 g 72 /min 97.5 [degF] 98 % 98 % 124 mm[Hg] 84 mm[Hg] ASHLEY Tolbert [facility] [employer] [facility] 4 11:23:31 Date Recorded Body height Body weight Heart rate Body temperature Oxygen saturation Oxygen saturation in Arterial blood by Pulse oximetry Systolic blood pressure Diastolic blood pressure Provider Name and Address Organization Details Last Updated DateTime 4 158.75 cm 02108.0 5 g 83 /min 97 [degF] 96 % 96 % 120 mm[Hg] 84 mm[Hg] ASHLEY Tolbert [facility] [employer] [facility] 4 10:58:05 Date Recorded Pain severity - 0-10 verbal numeric rating [Score] - Reported Provider Name and Address Organization Details Last Updated DateTime 01/15/2024 0 Junie Lee RN [facility] [employer] [facility] 01/15/2024 11:06:04 Date Recorded Body height Body mass index (BMI) Body weight Heart rate Body temperature Oxygen saturation Oxygen saturation in Arterial blood by Pulse oximetry Systolic blood pressure Diastolic blood pressure Provider Name and Address Organization Details Last Updated DateTime 4 158.75 cm 20 kg/m2 12346.7 5 g 97 /min 97 [degF] 95 % 95 % 140 mm[Hg] 90 mm[Hg] Arlin Vicente Jacqueline [facility] [employer] [facility] 4 11:36:38 Social History Question Answer Notes LastModified by Organizat ion Details LastModified Time Tobacco Smoking Status Never Smoker Not Available [employer] 06/20/2022 06:55:12 Do You Have An Advance Directive? Yes [email or web address] Information not available 12/05/2022 What Is Your Level Of Alcohol Consumption? None [email or web address] Information not available 01/15/2024 Are You Blind Or Do You Have Difficulty Seeing? No [id number] Information not available 06/20/2022 In The 14 Days Before Symptom Onset, Have You Had Close Contact With A Laboratory-confir med COVID-19 While That Case Was Ill? No [id number] Information not available 06/20/2022 In The 14 Days Before Symptom Onset, Have You Had Close Contact With A Person Who Is Under Investigation For COVID-19 While That Person Was Ill? No [id number] Information not available 06/20/2022 Are You Deaf Or Do You Have Serious Difficulty Hearing? Yes [email or web address] Information not available 12/05/2022 What Type Of Diet Are You Following? REGULAR [id number] Information not available 06/20/2022 Have There Been Any Changes To Your Family Or Social Situation? No [id number] Information not available 06/20/2022 What Is The Fluoride Status Of Your Home? Unknown [id number] Information not available 06/20/2022 Are There Any Guns Present In Your Home? No [id number] Information not available 06/20/2022 Do You Use Insect Repellent Routinely? No [id number] Information not available 06/20/2022 Where Do You Live? [place] [id number] Information not available 06/20/2022 Guns Present In The Home? No [email or web address] Information not available 12/05/2022 Are You Able To Care For Yourself? Yes [email or web address] Information not available 12/05/2022 Are You Blind Or Do Yo Have Difficulty Seeing? No [email or web address] Information not available 12/05/2022 Are You Deaf Or Do You Have Serious Difficulty Hearing? Yes [email or web address] Information not available 12/05/2022 Live Alone Of With Others? With Others [email or web address] Information not available 12/05/2022 Do You Have A Medical Power Of Disease Case Manager? Yes [email or web address] Information not available 12/05/2022 What Was The Date Of Your Most Recent Tobacco Screening? 01/15/2024 [email or web address] Information not available 01/15/2024 Do You Have Any Pets? No [email or web address] Information not available 12/05/2022 What Is Your Relationship Status? Information not available 12/05/2022 Do You Use Your Seat Belt Or Car Seat Routinely? Yes [email or web address] Information not available 12/05/2022 Do You Have Smoke And Carbon Monoxide Detectors In Your Home? Yes MIGRATION.65249 [id number] Information not available 06/20/2022 Are You Passively Exposed To Smoke? No MIGRATION.19741 78150 Information not available 06/20/2022 Are There Any Smokers In Your House? No [email or web address] Information not available 12/05/2022 Do You Use Sunscreen Routinely? No MIGRATION.38584 66112 Information not available 06/20/2022 Have You Recently Traveled Abroad? No MIGRATION.08449 24721 Information not available 06/20/2022 Do You Have Any Dietary Restrictions? No MIGRATION.22417 67911 Information not available 06/20/2022 Do You Or Have You Ever Used Any Other Forms Of Tobacco Or Nicotine? No MIGRATION.86730 65530 Information not available 06/20/2022 Sex: Unknown Functional Status Question Answer Note LastModified by Organizat ion Details LastModified Time Do you have difficulty walking or climbing stairs? Yes recent hip surgery [email or web address] Information not available 01/15/2024 Do you have transportation difficulties? No MIGRATION.[id number] 0953 Information not available 06/20/2022 Are you able to walk? YESASSIST [email or web address] Information not available 01/15/2024 Do you have difficulty doing errands alone? Yes MIGRATION.059235 4002 Information not available 06/20/2022 Are you able to care for yourself? Yes MIGRATION.076902 9231 Information not available 06/20/2022 Do you have difficulty dressing or bathing? No MIGRATION.045479 4577 Information not available 06/20/2022 What is your exercise level? None MIGRATION.858051 6686 Information not available 06/20/2022 Mental Status Question Answer Note LastModified by Organizat ion Details LastModified Time Do you have difficulty concentrating, remembering or making decisions? No MIGRATION.[id number] 6 Information not available 06/20/2022 Family History [...] HAVE YOU BEEN HOSPITALIZED OR SEEN IN [facility] IN THE PAST YEAR ? N ATHEROSCLEROSIS [...] virus, trivalent, preservative 5 completed Not Available [facility] 06/20/2022 07:01:28 Influenza, split virus, quadrivalent, preservative 2 completed Not Available [facility] 06/20/2022 07:01:28 SARS-COV-2 (COVID-19) vaccine, UNSPECIFIED 1 completed Not Available [facility] 06/20/2022 07:01:28 Influenza, split virus, quadrivalent, preservative 1 completed Not [facility] 07:01:28 COVID-19 Non-US Vaccine, Product Unknown 1 completed Not Available [facility] 06/20/2022 07:01:28 COVID-19 Non-US Vaccine, Product Unknown 1 completed Not Available [facility] 06/20/2022 07:01:28 Influenza, split virus, trivalent, preservative 8 completed Not Available [facility] 06/20/2022 07:01:28 pneumococcal polysaccharide PPV23 9 completed Not Available [facility] 06/20/2022 07:01:29 Pneumococcal conjugate PCV 13 5 completed Not Available [facility] 06/20/2022 07:01:29 Influenza, high-dose, trivalent, PF 4 completed ASHLEY Tolbert [place] [facility] [place] [facility] 04/01/2024 14:34:20 Pneumococcal conjugate PCV20, polysaccharide MQR698 conjugate, adjuvant, PF 4 completed ASHLEY Tolbert [facility] 04/01/2024 14:34:20 Past Encounters Encounter ID Performer Location Encounter Start Date Encounter Closed Date Diagnosis/Indication Diagnosis SNOMED-CT Code Diagnosis ICD10 Code Diagnosis Note [id number] [facility] Internal Med [facility] [address] [address] 11/09/2020 00:00:00 11/09/2020 12:23:09 [id number] S_[facility] Internal Med [facility] [address] [address] 12/21/2020 00:00:00 12/21/2020 11:57:58 [id number] [facility] Internal Med [facility] [address] [address] 04/26/2021 00:00:00 04/26/2021 11:58:37 [id number] [facility] Internal Med [facility] [address] [address] 08/23/2021 00:00:00 08/23/2021 11:31:25 [id number] [facility] Internal Med [facility] [address] [place] [address] 12/27/2021 00:00:00 12/27/2021 11:11:12 [id number] [facility] Internal Med [facility] [address] [address] 01/29/2022 00:00:00 01/29/2022 11:30:54 [id number] [facility] General Surgery 2043 [facility], [address] [address] 04/05/2022 00:00:00 04/05/2022 13:57:58 [id number] [facility] Internal Med Sybil aranda [address] [place] [address] [place] [address] 04/06/2022 00:00:00 04/06/2022 15:08:13 [id number] Adarsh Tan MD [facility] Internal Med Sybil aranda [address] [place] [address] [place] [address] 08/07/2022 14:52:21 08/07/2022 15:50:03 Congestive heart failure 10059088 I50.9 Hypercholesterolemia 136 90850 E78.00 Atrial fibrillation 4943 6004 I48.91 Hypothyroidism 97330923 E03.9 [id number] Adarsh Tan MD [facility] Internal Med [facility] [address] [place] [address] 12/05/2022 10:36:07 12/05/2022 11:12:32 Adult health examination 367837231 Z00.00 Screening for disorder 762093759 Z13.9 Congestive heart failure 14427085 I50.9 Atrial fibrillation 4943 6004 I48.91 Hypothyroidism 00495503 E03.9 Hypercholesterolemia 136 53811 E78.00 Vitamin D deficiency 347 40250 E55.9 [id number] Adarsh Tan MD S_G Internal Med [facility] [address] [address] 03/27/2023 11:55:06 03/27/2023 12:41:40 Atrial fibrillation 72293474 I48.91 Congestive heart failure 29510236 I50.9 Hypercholesterolemia 136 37157 E78.00 Hypothyroidism 12559576 E03.9 [id number] Adarsh Tan MD S_[facility]G Internal Med [facility] [address] [place] [address] 0 07/24/2023 10:47:23 07/24/2023 11:57:19 Hypercholesterolemia 83099427 E78.00 Hypothyroidism 90154365 E03.9 Atrial fibrillation 4943 6004 I48.91 [id number] Adarsh Tan MD S_G Internal Med [facility] [address] [address] 08/15/2023 10:52:05 08/15/2023 11:10:37 Hypokalemia 18375436 E87.6 [id number] Javier Yoder DPM [facility] Podiatry [facility] [address] [address] 11/04/2023 10:48:49 11/04/2023 16:25:29 [id number] Adarsh Tan MD S_G Internal Med [facility] [address] [address] 11/27/2023 11:03:52 11/27/2023 11:44:22 Congestive heart failure 38919314 I50.9 Atrial fibrillation 4943 6004 I48.91 Hypothyroidism 55560963 E03.9 Neuropathy 029870717 G62 .9 Hypercholesterolemia 136 26167 E78.00 [id number] Adarsh Tan MD S_[facility]G Internal Med [facility] [address] [address] 01/15/2024 10:39:09 01/15/2024 11:33:49 Adult health examination 860515722 Z00.00 Screening for disorder 853146402 Z13.9 Atrial fibrillation 4943 6004 I48.91 Hypercholesterolemia 136 11451 E78.00 Hypothyroidism 11851083 E03.9 [id number] Adarsh Tan MD [facility] Internal Med [facility] [address] [facility] [address] [place] [address] 04/01/2024 11:00:38 04/01/2024 12:04:29 Atrial fibrillation 22667145 I48.91 Hypercholesterolemia 136 21125 E78.00 Hypothyroidism 43220197 E03.9 Health Concerns Section Related Observation LastModified by Organization Detai ls LastModified Time None Recorded Concern Status LastModified by Organization Details LastModified Time None Recorded Advance Directives Directive Y: Payers Encounter Date Sequence Insurance Name Policy Number Policy Donahue Covered Member ID Donahue Member ID Guarantor Name 08/15/2023 1 [facility] (MEDICARE REPLACEMENT/A DVANTAGE - HMO) [id number] Renata Gentile Brown [id number] [facility] 11/04/2023 1 [facility] (MEDICARE REPLACEMENT/A DVANTAGE - HMO) [id number] Eathel F Brown [id number] Eathel Brown 11/27/2023 1 [facility] (MEDICARE REPLACEMENT/A DVANTAGE - HMO) [id number] Eathel F Brown [id number] Eathel Brown 01/15/2024 1 [facility] (MEDICARE REPLACEMENT/A DVANTAGE - HMO) [id number] Eatlos F Brown [id number] Eathel Brown 04/01/2024 1 [facility] (MEDICARE REPLACEMENT/A DVANTAGE - HMO) [id number] [facility] F Brown [id number] [facility] Brown Notes Date Note Type Note Provider Name and Address Organization Details Recorded Time text/html Patient Name: Liliane Brown (eathel)Date Of [...] 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 Echocardiogram from 08/02/2022 [...] Reactions ReviewedRobitussin Facial SwellingTamiflu Rash Vaccination and Gswsjoluztlp0293-90 Qnxtpjdue7215-14 Covid Jhivlr8727-11 Covid Booster Fytebc1149-04 Tetanus Lxyaifk0190-32 Jecoaipy8803-70 Hllkdfxeh9214-46 Prevnar 13 Gc Surgical Shkmozg5407-68 Ouoytqacmogvxrv4411-70 Vaginal Hysterectomy Preventative Mhdvvoz1507/24/2023 ALBUMIN 4.0 G/DL01/25/2014 COLONOSCOPY (10 YEARS) MAMMOGRAM HAIC 5.9 % Social HistoryDoes not smokeDoes not drinkDoes office work Family HistoryMother 61 from hypertension and CVAFather in late 20's from TBOne brother living ASHD and CABGTwo sisters both both hx of CVA(2) Adarsh Tan MD [address], [place], [address], [employer] 08/15/2023 11:04:21 4 text/html Pt RTC for routine nail care, incurvated nails both feet. 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 Echocardiogram from 08/02/2022 [...] medications: Eliquis. Rate control: rapid ventricular response [id number] Criteria: congestive heart failure, Age > 75 [...] Reactions ReviewedRobitussin Facial SwellingTamiflu Rash Vaccination and Mbowgaomzshk2214-22 Ktkbcmlrj1695-83 Covid Vvaywp1315-82 Covid Booster Ourxmw4796-00 Tetanus Zsuwdgu1242-87 Efoggwhu7775-29 Rlythixdn8998-22 Prevnar 13 Surgical Tadqngr7934-50 Afbmfngrbgtkykj4193-59 Vaginal Hysterectomy Preventative Testing( ) 07/24/2023 Albumin [...] Reactions ReviewedRobitussin Facial SwellingTamiflu Rash Vaccination and Rdalcfvrapuz9589-76 Phwcwxncu6173-83 Covid Jxejds6904-04 Covid Booster Omwklz6047-29 Tetanus Fniybjz1223-00 Esappwix2106-87 Vcotjghwu4556-25 Prevnar 13 Gc Surgical Mjumrti8958-25 Wtlwphyxbyivrat2462-58 Vaginal Hysterectomy Preventative Testing( ) 07/24/2023 Albumin [...] 35.7-45.7 %PLATELETS 108 150-400 X10'3/ULLIPID PANEL Date: 04/03/2024CHOLESTEROL 106 140-199 MG/DLTRIGLYCERIDES 124 0-150 MG/DLHDL CHOLESTEROL 38 40- MG/DLLDL CHOLESTEROL, CALCULATED 43 0-130 MG/DL Adarsh Tan MD [address] [facility] [address], [place], [address], [facility] 11/27/2023 11:42:21 4 text/html Patient Name: Liliane Brown (eathel)Date Of Service: Saturday ( 01.15.2024 ): 1935 [...] 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 Echocardiogram from 08/02/2022 [...] Succinate Er. Rate control: controlled ventricular response [id number] Criteria: Age > 75 and and considered [...] Reactions ReviewedRobitussin Facial SwellingTamiflu Rash Vaccination and Kgshxgpluvyx8845-16 Qdnsorubj3894-80 Covid Kbbsor0457-94 Covid Booster Jtcuoj1136-13 Tetanus Ikprfbo3352-51 Qxbvmftj1595-09 Ltuqulzgi5355-64 Prevnar 13 Gc Surgical Vfjbnwz9276-17 Lt. Femur Open Reduction Pllmxmla2283-25 Anmudndlxnssnwh0316-62 Vaginal Hysterectomy Preventative Testing( ) 11/27/2023 Albumin 3.9 G/DL( ) 01/25/2014 Colonoscopy (10 Years) 01/26/2024( ) 12/10/2013 Mammogram 12/11/2015( ) 09/20/2004 HAIC 5.9 % Social HistoryDoes not smokeDoes not drinkDoes office work Family HistoryMother 61 from hypertension and CVAFather in late 20's from TBOne brother living ASHD and CABGTwo sisters both both hx of CVA(2) Adarsh Tan MD [address] [facility] [address], [place], [address], [facility] [employer] 01/15/2024 11:30:45 4 text/html Patient Name: Momin (eathel) BarnettDate Of Service: Saturday ( 04.01.2024 ): 1935 [...] 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 Echocardiogram from 08/02/2022 [...] specific medication. Rate control: controlled ventricular response [id number] Criteria: hypertension, Age > 75 and and [...] Vaccination and Immunization( ) 2024-03 INFLUENZA( ) 2014-05 PREVNAR 13 GC( ) 2018-10 PNEUMOVAX( ) 2018-10 SHINGRIX( ) 2018-10 TETANUS BOOSTER( ) 2024-03 PREVNAR 20( ) 2021-02 COVID PFIZER(X) 2021-02 COVID BOOSTER PFIZER Surgical Asrbxgf5943-94 Lt. Femur Open Reduction Iyvhfdjb3552-23 Olyhmkvabwhnqrg6344-71 Vaginal Hysterectomy Preventative Testing( ) 11/27/2023 Albumin [...] >1000 239-931 PG/ML Adarsh Tan MD [address] [facility] [address], [place], [address], [facility] 04/01/2024 11:59:12 OBGyn Episode No OBEpisode recorded.
--- OUTSIDE RECORDS SUMMARY | 2024-07-13 19:12 | XMS_ITS | Clinical Summary ---
Author Organization [facility] Paula andrew [facility] Address [address] [place] [address] Care Team Providers Care Log Turner Name Role Phone Unavailable Primary Care Provider [...] STL ABSTRACTION Provider, Abstract 07/08/2024 Orders Only [facility] Oncology and Hematology - Jermaine [address] [facility] [place] [address] Antwan Irvin MD 07/07/2024 External Device Data STL ABSTRACTION Provider, Abstract 07/02/2024 Orders Only [facility] Oncology and Hematology - Jermaine [address] [place] [address] Antwan Irvin MD 07/01/2024 3:00 PM CDT Office Visit [facility] Oncology and Hematology - Jermaine [address] [place] [address] Antwan Irvin MD Chronic anemia (Primary Dx); Other secondary thrombocytopenia 07/01/2024 Abstract [facility] Oncology and Hematology - Jermaine [address] [place] [address] Antwan Irvin MD from Last 3 Months [...] on file Legal Sex 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 Gender Identity Not on file Sexual Orientation [...] 07/22/2024 4:00 PM CDT Telephone Check Up [facility] Oncology and Hematology - Jermaine [address] [facility] [address] [place] [address] Antwan Irvin MD [address] [facility] [place] [address] Health Maintenance Due Date Last Done Comments DTAP/TDAP/TD VACCINES (1 - Tdap) 1954 PNEUMOCOCCAL VACCINE 50+ YEARS (1 of 1 - PCV) 06/12/18 86 ZOSTER VACCINE (1 of 2) 1985 OSTEOPOROSIS SCREENING 2000 RSV VACCINE (60+ or ) (1 - 1-dose 75+ series) 2010 INFLUENZA VACCINE (#1) 2023 Medicare [place] ([place]) Prev entative Visit/Annual Wellness Visit 04/22/2024 Procedures [...] Resu lt from Last 3 Months Insurance [facility] [id number]
--- OUTSIDE RECORDS SUMMARY | 2024-07-13 19:21 | XMS_ITS | CONTINUITY OF CARE DOCUMENT ---
Author Name aspennobletyron Address Unknown Organization [facility] Address [address] [place] [address] Phone [phone] Care Team Providers Care Industrial Maintenance Repairer Name Role Phone Mehul MCKAY, Charly Unavailable [phone] CASANDRA MCKAY, YOLANDA Unavailable YOLANDA GUAJARDO MD Unavailable [phone] PROBLEMS Condition Status Date Provider Notes Chest pain active Charly Carver MD INSURANCE PROVIDERS Payer name Policy type / Coverage type [place] red democrat ID [employer] [id number] [place] MED[place] Medicare [id number] HISTORY OF PROCEDURES Procedure Date Procedure Name Provider Procedure Notes S tatus Cardiolite, 2 units Charly Carver MD completed SPECT Images Charly Carver MD complet ed Stress EKG Charly Carver MD completed Holter, 24 or 48 Charly Carver MD com pleted
[2024-07-13 19:41] VITALS: BP 108/85; PULSE 58; RESP 14; O2SAT 98
[2024-07-13 19:41] LABS: Basophils Percent Auto 0.4 % (0.2-1.2); Eosinophils Absolute Auto 0.1 K/mm3 (0-0.3); Eosinophils Percent Auto 0.8 % (0-4.4); Hematocrit 26.5 % (37.0-47.0); Hemoglobin 8.1 g/dL (12.0-15.0); Immature Granulocyte Absolute 0.05 K/mm3 (0.00-0.031); Immature Granulocyte Percent A 0.6 % (0-0.5); Lymphocytes Absolute Auto 0.81 K/mm3 (0.9-3.2); Lymphocytes Percent Auto 10.4 % (18.3-44.2); Mean Corpuscular HGB Conc 30.6 g/dl (32-36); Mean Corpuscular Hemoglobin 31.3 pg (26-34); Mean Corpuscular Volume 102.3 fl (80-100); Monocytes Absolute Auto 0.4 K/mm3 (0.1-0.6); Monocytes Percent Auto 4.6 % (2.6-8.5); Neutrophils Absolute Auto 6.5 K/mm3 (1.3-6.7); Neutrophils Percent Auto 83.2 % (45.5-73.1); Platelet Count Result 101 k/mm3 (150-375); Red Blood Count 2.59 M/mm3 (4.2-5.4); Red Cell Distribution Width 15.9 % (11.5-14.5); White Blood Count 7.8 K/mm3 (4.5-10.0)
[2024-07-13 19:51] LABS: INR 1.6; Prothrombin Time 20.1 Seconds (11.1-14.7)
[2024-07-13 19:52] LABS: Partial Thromboplastin Time 27.1 Seconds (22.3-36.8)
[2024-07-13 19:58] LABS: Alanine Aminotransferase 17 U/L (6-35); Albumin Level 3.3 g/dL (3.5-5.1); Alkaline Phosphatase 68 U/L (38-126); Anion Gap 10 mmol/L (4-12); Aspartate Amino Transferase 21 U/L (14-36); Blood Urea Nitrogen 52 mg/dL (7-17); Calcium 8.2 mg/dL (8.4-10.2); Carbon Dioxide 19 mmol/L (22-30); Chloride 109 mmol/L (98-107); Estimated CRCL calculation 26 ml/min; Estimated Glomerular Filt Rate 48; Glucose 96 mg/dL (65-110); Potassium 4.4 mmol/L (3.4-5.0); Sodium 138 mmol/L (137-145)
--- NOTE | 2024-07-13 20:02 | ED_ITS ---
HPI - GI Bleed General Chief complaint: GI Bleed Stated complaint: sob, rectal bleeding, weakness Time Seen by Provider: 07/13/24 19:11 History of Present Illness HPI Narrative: Patient is a 9-year-old female who presents ER with rectal bleeding. Began this afternoon. Has had 4 episodes of plaque/maroon stool. She is on Eliquis. Last dose this morning. History of low platelets. Reports she has been taking Aleve twice a day most daily for last 3 weeks since breaking a rib. No fevers or chills or sweats. Mild lightheadedness but no syncope. Reports she had some mild abdominal discomfort the last week and had an abdominal ultrasound that was unremarkable. Related Data Home Medications ?Medication ?Instructions ?Recorded ?Confirmed ?Last Taken ?Type levothyroxine 75 mcg tablet 75 mcg PO DAILY 10/13/20 01/28/24 12/20/23 05:55 History simvastatin 20 mg tablet 20 mg PO DAILY 10/13/20 01/28/24 12/20/23 09:55 History meclizine 25 mg tablet 25 mg PO BID Dizziness 04/13/21 01/28/24 12/20/23 09:50 History Vitamin D3 2,500 unit PO DAILY 08/01/22 01/28/24 12/20/23 09:50 History cyanocobalamin (vitamin B-12) 2,500 mcg PO DAILY 08/01/22 01/28/24 12/20/23 09:50 History 2,500 mcg tablet furosemide 20 mg tablet (Lasix) 20 mg PO EVERY OTHER DAY PRN edema 12/16/23 01/28/24 12/20/23 09:50 History or weight gain potassium chloride 20 mEq oral 20 meq PO DAILY 12/16/23 01/28/24 12/20/23 09:50 History packet Allergies Allergy/AdvReac Type Severity Reaction Status Date / Time No Known Allergies Allergy Verified 07/13/24 19:06 Review of Systems 2 Review of Systems: All systems reviewed & are unremarkable except as noted in HPI and below Constitutional: Constitutional: Reports no additional constitutional complaints ENT: Reports system reviewed and no additional complaints, except as documented Cardiovascular: Cardiovascular: Reports no additional cardiovascular complaints Respiratory: Respiratory: Reports no additional respiratory complaints Gastrointestinal: Gastrointestinal: Reports no additional gastrointestinal complaints [facility] Past Medical History Medical History Atrial fibrillation 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 EF as low as 20 to 25% in September 2020 but improved to 57% in January 2021. Congestive heart failure Hyperlipidemia Hypertension Hypothyroidism Surgical History Surgical History History of bilateral cataract extraction History of hip surgery History of hysterectomy for benign disease Family History Family History Father Tuberculosis Social History Social History Social History: Surrogate decision maker: Celina Toribio and Leda Farr, daughters. She has 3 children, 2 girls and a boy. Her daughter lives with her. 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 Code status: Full code. Smoking status: Never smoker Second hand tobacco smoke exposure: Yes Alcohol intake: former Drinks per week: 1 Substance use: never Substance use type: does not use Do You Feel Safe in your Home?: Yes Lack of Transportation: No Lack of Food: Never True Current Housing: I Have Housing Concerned About Future Housing: No Difficulty Paying Gas/Electric Bills: No Difficulty Paying for Meds: No Currently Unemployed: No Education: High School Diploma/GED Difficulty w/ Childcare or Family Care: No Living arrangements: alone Additional living arrangements comments: The patient is and lives in her own home in [place]. 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 HEAD: Normocephalic, atraumatic. ENT: Mucous membranes moist. NECK: Supple. CHEST: Clear to auscultation. No respiratory distress. HEART: Regular rate and rhythm. Normal peripheral pulses. ABDOMEN: Soft, nontender, nondistended. Digital rectal exam with maroon stool that is guaiac positive. EXTREMITIES: Normal range of motion. No edema. SKIN: Warm, dry, pale, no rash. NEURO: Alert and oriented x3. PSYCH: Normal mood and affect. Course Course Emergency Course: GI consulted, protonix gtt started, admit to hospitalist. Vital Signs Vital signs: Vital Signs Temperature 97.6 F 07/13/24 19:07 Pulse Rate 110 H 07/13/24 19:07 Respiratory Rate 20 07/13/24 19:07 Blood Pressure 97/71 L 07/13/24 19:07 Pulse Oximetry 85 L 07/13/24 19:07 Oxygen Delivery Room Air 07/13/24 19:07 Temperature 97.6 F 07/13/24 19:07 Pulse Rate 58 L 07/13/24 19:41 Respiratory Rate 14 07/13/24 19:41 Blood Pressure 108/85 07/13/24 19:41 Pulse Oximetry 98 07/13/24 19:41 Oxygen Delivery Room Air 07/13/24 19:07 MDM - GI Bleed Lab Data 07/13/24 19:36 07/13/24 19:36 Labs: Lab Results 07/13/24 Range/Units 19:36 WBC 7.8 (4.5-10.0) K/mm3 RBC 2.59 L (4.2-5.4) M/mm3 Hgb 8.1 L (12.0-15.0) g/dL Hct 26.5 L (37.0-47.0) % MCV 102.3 H (80-100) fl MCH 31.3 (26-34) pg MCHC 30.6 L (32-36) g/dl RDW 15.9 H (11.5-14.5) % Plt Count 101 L (150-375) k/mm3 MPV 13.0 H (7.4-10.4) fl Immature Gran % (Auto) 0.6 H (0-0.5) % Neut % (Auto) 83.2 H (45.5-73.1) % Lymph % (Auto) 10.4 L (18.3-44.2) % [place] % (Auto) 4.6 (2.6-8.5) % Eos % (Auto) 0.8 (0-4.4) % Baso % (Auto) 0.4 (0.2-1.2) % Lymph # (Auto) 0.81 L (0.9-3.2) K/mm3 [place] # (Auto) 0.4 (0.1-0.6) K/mm3 Eos # (Auto) 0.1 (0-0.3) K/mm3 Baso # (Auto) 0.0 (0.0-0.1) K/mm3 Abs Immat Gran (auto) 0.05 H (0.00-0.031) K/mm3 Absolute Neuts (auto) 6.5 (1.3-6.7) K/mm3 Absolute Nucleated RBC 0.000 (0.0-0.012) K/mm3 Nucleated RBC % 0.0 (0.0-0.2) % PT 20.1 H (11.1-14.7) Seconds INR 1.6 APTT 27.1 (22.3-36.8) Seconds Sodium 138 (137-145) mmol/L Potassium 4.4 (3.4-5.0) mmol/L Chloride 109 H (98-107) mmol/L Carbon Dioxide 19 L (22-30) mmol/L Anion Gap 10 (4-12) mmol/L BUN 52 H D (7-17) mg/dL Creatinine 1.07 H (0.7-1.0) mg/dL Estim Creat Clear Calc 26 ml/min Estimated GFR 48 L (59 - ) Glucose 96 (65-110) mg/dL Calcium 8.2 L (8.4-10.2) mg/dL Total Bilirubin 1.0 (0.2-1.3) mg/dL AST 21 (14-36) U/L ALT 17 (6-35) U/L Alkaline Phosphatase 68 (38-126) U/L Total Protein 5.0 L (6.3-8.2) g/dL Albumin 3.3 L (3.5-5.1) g/dL Blood Type O Positive Antibody Screen Negative Critical Care Time Critical Care Time Critical Care Time: Yes Total Critical Care Time: 35 Discharge Plan Discharge Clinical Impression: Acute upper GI bleed Patient Disposition: Still a Patient Condition: Stable Patient Language: Panamanian Prescriptions: No Action acetaminophen 325 mg Tablet 650 mg PO Q4H PRN (Reason: Mild Pain (1-5) Or Fever) Qty: 30 0RF metoprolol succinate [Toprol XL] 25 mg Tablet Extended Release 24 Hr 125 mg PO QAM Qty: 30 0RF oxybutynin chloride 5 mg Tablet 5 mg PO BID Qty: 60 0RF meclizine 25 mg Tablet 25 mg PO BID cyanocobalamin (vitamin B-12) 2,500 mcg Tablet 2,500 mcg PO DAILY Vitamin D3 2,500 unit PO DAILY potassium chloride 20 mEq packet 20 meq PO DAILY Rx Instructions: 20 mEq orally when you take your lasix (furosemide). Next due 12/22/23 furosemide [Lasix] 20 mg tablet 20 mg PO EVERY OTHER DAY PRN (Reason: edema or weight gain) Patient Comments: takes sat, sat, saturday in am Rx Instructions: Next dose due 12/22/23 levothyroxine 75 mcg tablet 75 mcg PO DAILY simvastatin 20 mg tablet 20 mg PO DAILY Eliquis 2.5 mg Tablet 2.5 mg PO Q12HR Qty: 60 1RF Follow-up/Referrals: Dominick,Adarsh Fenton MD [Primary Care Provider] -
[2024-07-13] MEDS: PANTOPRAZOLE SODIUM IV 80 MG in SODIUM CHLORIDE 0.9% IV 500 ML 50 MG IV CONT (20:15)
[2024-07-13] MEDS: PANTOPRAZOLE SODIUM IV 40 MG VIAL 80 MG IV PUSH (20:15)
[2024-07-13] MEDS: SODIUM CHLORIDE 0.9% IV 1,000 ML 999 ML IV CONT (20:16)
[2024-07-13 21:30] VITALS: BP 120/74; PULSE 72; RESP 18; O2SAT 93
[2024-07-13] MEDS: SODIUM CHLORIDE 0.9% IV 1,000 ML 100 ML IV CONT (21:31)
--- NOTE | 2024-07-13 22:54 | PM.IMHP ---
H&P: HPI History of Present Illness Date/Time: 07/14/24 00:40 Chief Complaint: Bloody stools, shortness of breath Narrative: 89-year-old female with past medical history of mild dementia, paroxysmal AFib on chronic anticoagulation with Eliquis, chronic thrombocytopenia, hypothyroidism, essential hypertension, urge urinary incontinence and chronic kidney disease stage 3 who presented to the ER due to rectal bleeding. Patient reported 4 episodes of maroon stools. She had recently had fall and had some rib pain and was started on Aleve by family 2 weeks ago. She had been having some epigastric pain and had abdominal ultrasound on 07/11/2024 that demonstrated chronic renal atrophy and status post cholecystectomy. Patient also reported shortness of breath and feeling lightheaded. Rectal exam was performed by ER provider which demonstrated some brown stool but mostly reddish maroon blood. Patient was only oriented x2 for nursing but was oriented to person place and time at time of my evaluation but was not the best historian regarding recent events. She did state that she had 1 large melenic stool at home. She reported that she had fall a couple weeks ago and was having shoulder pain and rib pain for which she was taking Aleve. She reports that her bruising on her rib to the gotten better. She actually denied having any epigastric pain at the time of my evaluation. She denies any lower abdominal pain. She has not had any further bloody stools since admission but is currently NPO. She denies a prior history of GI bleed. She is incontinent of urine and her depends is saturated with urine. She has a pure wick catheter placed but was not connected to suction. She denies any chest pain beyond the rib pain she had with her fall. She denies current shortness of breath. She does take Lasix every other day for lower extremity swelling. She does not think her legs her any more swollen than usual. Review of Systems Review of Systems: 12 systems were reviewed with pertinent positives and negatives per HPI. Except as documented in the HPI, all other systems were reviewed and are negative. 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 EF as low as 20 to 25% in September 2020 but improved to 57% in January 2021. Hyperlipidemia Hypothyroidism Hypertension Congestive heart failure Surgical History Surgical History (Updated 07/13/24 @ 23:02 by Zeinab Dominguez DO) History of hip surgery (11/2023) ORIF left hip History of bilateral cataract extraction History of hysterectomy for benign disease Family History Family History Father Tuberculosis Social History Social History (Updated 07/14/24 @ 06:31 by Zeinab Dominguez DO) Social History: She has 3 children, 2 girls and a boy. Her daughter lives with her. 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 Code status: Full code. Surrogate decision maker: Celina Toribio and Leda Farr, daughters. Smoking status: Never smoker Second hand tobacco smoke exposure: Yes Alcohol intake: current Drinks per week: 1 Substance use: never Substance use type: does not use Do You Feel Safe in your Home?: Yes Lack of Transportation: No Lack of Food: Never True Current Housing: I Have Housing Concerned About Future Housing: No Difficulty Paying Gas/Electric Bills: No Difficulty Paying for Meds: No Currently Unemployed: No Education: Decline to Answer Difficulty w/ Childcare or Family Care: No Living arrangements: alone Additional living arrangements comments: The patient is and lives in her own home in [place]. 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 Spiritual care concerns: No Meds Home Medications and Allergies Home Medications ?Medication ?Instructions ?Recorded ?Confirmed ?Type levothyroxine 75 mcg tablet 75 mcg PO DAILY 10/13/20 07/14/24 History simvastatin 20 mg tablet 20 mg PO DAILY 10/13/20 07/14/24 History apixaban 2.5 mg tablet (Eliquis) 2.5 mg PO Q12HR #60 tabs 10/17/20 07/14/24 Rx meclizine 25 mg tablet 25 mg PO BID Dizziness 04/13/21 07/14/24 History Vitamin D3 1,000 unit PO DAILY 08/01/22 07/14/24 History cyanocobalamin (vitamin B-12) 1,000 mcg PO DAILY 08/01/22 07/14/24 History 2,500 mcg tablet furosemide 20 mg tablet (Lasix) 20 mg PO EVERY OTHER DAY PRN edema 12/16/23 07/14/24 History or weight gain acetaminophen 325 mg tablet 650 mg (2 x 325 mg) PO Q4H PRN 01/05/24 07/14/24 Rx Mild Pain (1-5) Or Fever #30 tabs oxybutynin chloride 5 mg tablet 5 mg PO BID #60 tabs 01/05/24 07/14/24 Rx donepezil 5 mg tablet 5 mg PO DAILY 07/14/24 07/14/24 History metoprolol succinate 25 mg 100 mg PO QAM 07/14/24 07/14/24 History tablet,extended release 24 hr (Toprol XL) Allergies Allergy/AdvReac Type Severity Reaction Status Date / Time No Known Allergies Allergy Verified 07/14/24 01:01 Vital Signs Vital Signs - 24 hr 07/13/24 19:07 07/13/24 19:41 07/13/24 21:30 Temperature 97.6 F Pulse Rate 110 H 58 L 72 Respiratory Rate 20 14 18 Blood Pressure 97/71 L 108/85 120/74 Pulse Oximetry 85 L 98 93 Oxygen Delivery Room Air Exam Narrative: Weight 52 kg BMI 19.1 Const: Other: No acute distress, well-developed well-nourished, appears stated age HENMT: Other: No oral pharyngeal erythema, edentulous in upper and lower jaw, she reports she does not wear dentures, head is normocephalic atraumatic Eyes: Other: Marked conjunctival pallor, mild scleral icterus left greater than right, evidence of bilateral lens replacements Neck: Other: No JVD, no lymphadenopathy Resp: Other: Clear to auscultation bilaterally, no increased work breathing Cardio: Other: Bradycardic, regular rhythm, no murmur, 2+ bilateral radial pedal pulses GI: Other: Soft, nontender, nondistended, normoactive bowel sounds : Other: Incontinent of urine, pure wick catheter present but not attached to external suction Skin: Other: Marked pallor, non jaundice, bruising to the right lateral posterior rib cage, scattered bruises to the extensor surfaces of arms bilaterally Neuro: Other: Alert oriented to person, month, year and fair recall of recent events, no obvious facial asymmetry, no gross motor deficits noted during the course of casual conversation Extrem: Other: No clubbing, cyanosis trace edema of the feet bilaterally Psych: Other: Pleasant and cooperative, appropriate mood and affect H&P: Results Labs Labs: Laboratory Tests 07/13/24 19:36 07/13/24 19:36 07/13/24 19:36 WBC 7.8 RBC 2.59 L Hgb 8.1 L Hct 26.5 L MCV 102.3 H MCH 31.3 MCHC 30.6 L RDW 15.9 H Plt Count 101 L MPV 13.0 H Immature Gran % (Auto) 0.6 H Neut % (Auto) 83.2 H Lymph % (Auto) 10.4 L [place] % (Auto) 4.6 Eos % (Auto) 0.8 Baso % (Auto) 0.4 Lymph # (Auto) 0.81 L [place] # (Auto) 0.4 Eos # (Auto) 0.1 Baso # (Auto) 0.0 Abs Immat Gran (auto) 0.05 H Absolute Neuts (auto) 6.5 Absolute Nucleated RBC 0.000 Nucleated RBC % 0.0 PT 20.1 H INR 1.6 APTT 27.1 Sodium 138 Potassium 4.4 Chloride 109 H Carbon Dioxide 19 L Anion Gap 10 BUN 52 H D Creatinine 1.07 H Estim Creat Clear Calc 26 Estimated GFR 48 L Glucose 96 Calcium 8.2 L Total Bilirubin 1.0 AST 21 ALT 17 Alkaline Phosphatase 68 Total Protein 5.0 L Albumin 3.3 L Blood Type O Positive Antibody Screen Negative EKG: All imaging and EKGs personally reviewed and interpreted. And unless stated otherwise agree with radiologic and cardiology interpretation. Assessment and Plan Assessment and plan (1) Acute GI hemorrhage: Code(s): K92.2 - Gastrointestinal hemorrhage, unspecified Status: Acute (2) Hypotension due to blood loss: Code(s): I95.89 - Other hypotension; R58 - Hemorrhage, not elsewhere classified Status: Acute (3) Acute on chronic anemia: Code(s): D64.9 - Anemia, unspecified Status: Acute (4) Uremia: Code(s): N19 - Unspecified kidney failure Status: Acute (5) Thrombocytopenia: Code(s): D69.6 - Thrombocytopenia, unspecified Status: Acute (6) Chronic anticoagulation: Code(s): Z79.01 - terminal press operator (current) use of anticoagulants Status: Acute (7) Chronic kidney disease, stage 3a: Code(s): N18.31 - Chronic kidney disease, stage 3a Status: Acute Plan Patient presented hospital with mild hypotension and mild tachycardia in the setting of acute GI bleed with drop in hemoglobin of 3 g compared to 12 days ago. GI bleed is likely upper in nature given recent NSAID use, epigastric discomfort, and uremia with BUN doubled from baseline in the setting of stable creatinine. Patient was typed and screened in the ER. Blood pressures improved after 1 L of isotonic fluids. The patient's Eliquis has been placed on hold. She does have chronic thrombocytopenia with a platelet count stable from baseline. Patient was started on Protonix 80 mg IV push in Protonix drip in the ER. GI has been consulted with anticipated EGD in a.m.. The patient is NPO. Will monitor serial H&Hs and transfuse for hemoglobin less than 7 or hemodynamic instability. At the completion of this documentation the patient's blood pressures were actually elevated into the 160s and 170 systolic. The patient's hemoglobin had dropped below 7 and 2 units of PRBCs was ordered by instructed nursing staff to only give 1 unit then repeat hemoglobin and re-evaluate whether not the 2nd unit will need to be administered. Home metoprolol was resumed. Will also resume patient's levothyroxine which can both be given after EGD procedure. Will hold diuretic therapy. Quality VTE Prophylaxis VTE prophylaxis: mechanical ordered (SCDs) Hospitalist [facility] Advance Care Plan I have confirmed that the patient's Advanced Care Plan is present, code status is documented, or surrogate decision maker is listed in patient medical record.: Yes Medication Reconciliation I have utilized all available resources to obtain, update and review the patients current medications (includes all prescriptions, OTC, herbals, cannabis, and nutritional supplements).: Yes
[2024-07-13 23:00] VITALS: BMI 20.2
--- NOTE | 2024-07-13 23:00 | PC.NURSE ---
This patient, Renata Brown, was admitted to IMU Room 206-02. Patient/family oriented to hospital policies and general routines including ID bracelet, bed and alarms, visiting hours, pain management, procedures, bathroom and other care routines, personal items, smoking policy, room service/diet, and visiting hours. Information on how to activate the Rapid Response Team has been discussed. Patient/Family are encouraged to report perceived risks to care and to ask questions if they do not understand what they are told or what they should do.
[2024-07-14] VITALS (24 sets, daily range): BP systolic 105–199; BP diastolic 52–102; PULSE 49–110; RESP 16–33; TEMP 35.9–36.7; O2SAT 93–100
[2024-07-14 00:50] LABS: Hematocrit 22.7 % (37.0-47.0)
[2024-07-14 00:54] LABS: Hemoglobin 6.9 g/dL (12.0-15.0)
[2024-07-14] MEDS: SODIUM CHLORIDE 0.9% IV 250 ML 30 ML IV CONT (03:39)
[2024-07-14 07:44] LABS: Hematocrit 28.6 % (37.0-47.0); Hemoglobin 8.6 g/dL (12.0-15.0); Immature Platelet Fraction Pct 7.9 % (0.9-11.2); Mean Corpuscular HGB Conc 30.1 g/dl (32-36); Mean Corpuscular Hemoglobin 30.7 pg (26-34); Mean Corpuscular Volume 102.1 fl (80-100); Mean Platelet Volume 13.3 fl (7.4-10.4); Platelet Count Result 76 k/mm3 (150-375); Red Cell Distribution Width 16.9 % (11.5-14.5); White Blood Count 5.7 K/mm3 (4.5-10.0)
--- NOTE | 2024-07-14 07:48 | PM.IMPN ---
Progress Note: A&P Assessment and Plan (1) Acute GI hemorrhage: Code(s): K92.2 - Gastrointestinal hemorrhage, unspecified Status: Acute (2) Hypotension due to blood loss: Code(s): I95.89 - Other hypotension; R58 - Hemorrhage, not elsewhere classified Status: Acute (3) Acute on chronic anemia: Code(s): D64.9 - Anemia, unspecified Status: Acute (4) Uremia: Code(s): N19 - Unspecified kidney failure Status: Acute (5) Thrombocytopenia: Code(s): D69.6 - Thrombocytopenia, unspecified Status: Acute (6) Chronic anticoagulation: Code(s): Z79.01 - prison (current) use of anticoagulants Status: Acute (7) Chronic kidney disease, stage 3a: Code(s): N18.31 - Chronic kidney disease, stage 3a Status: Acute Plan GI Bleed Patient underwent EGD which shows acute gastric ulcer and gastritis with bleeding recommended to continue IV pantoprazole and keeping NPO for at least 36 hours in case of rebleeding. H&H Q 8 hours Possible due to an NSAiD intake and Eliquis Received 1 unit PRBC Protonix 80 mg IV Anticipated EGD a.m. Monitor H&H Transfuse if hemoglobin less than 7 GI consulted Will hold diuretic therapy A Fib Hold Eliquis Continue metoprolol succinate 100 mg p.o. q.d. Hypothyroidism Continue levothyroxine 75 mcg Subjective Date/time seen: 07/14/24 07:48 Interval history: Interval history:89-year-old female with past medical history of mild dementia, paroxysmal AFib on chronic anticoagulation with Eliquis, chronic thrombocytopenia, hypothyroidism, essential hypertension, urge urinary incontinence and chronic kidney disease stage 3 who presented to the ER due to rectal bleeding. Patient recently had a rib fracture and was taking Aleve. GI is consulted and possible upper endoscopy. 07/14: Patient underwent EGD which shows acute gastric ulcer and gastritis with bleeding recommended to continue IV pantoprazole and keeping NPO for at least 36 hours in case of rebleeding. H&H Q 8 hours Review of Systems Review of Systems: 12 systems were reviewed with pertinent positives and negatives per HPI. Except as documented in the HPI, all other systems were reviewed and are negative. Exam Narrative: Weight 52 kg BMI 19.1 Const: Other: No acute distress, well-developed well-nourished, appears stated age HENMT: Other: No oral pharyngeal erythema, edentulous in upper and lower jaw, she reports she does not wear dentures, head is normocephalic atraumatic Eyes: Other: Marked conjunctival pallor, mild scleral icterus left greater than right, evidence of bilateral lens replacements Neck: Other: No JVD, no lymphadenopathy Resp: Other: Clear to auscultation bilaterally, no increased work breathing Cardio: Other: Bradycardic, regular rhythm, no murmur, 2+ bilateral radial pedal pulses GI: Other: Soft, nontender, nondistended, normoactive bowel sounds : Other: Incontinent of urine, pure wick catheter present but not attached to external suction Skin: Other: Marked pallor, non jaundice, bruising to the right lateral posterior rib cage, scattered bruises to the extensor surfaces of arms bilaterally Neuro: Other: Alert oriented to person, month, year and fair recall of recent events, no obvious facial asymmetry, no gross motor deficits noted during the course of casual conversation Extrem: Other: No clubbing, cyanosis trace edema of the feet bilaterally Psych: Other: Pleasant and cooperative, appropriate mood and affect Objective Data Vital Signs Vital Signs: Vital Signs - 24 hr 07/13/24 19:07 07/13/24 19:41 07/13/24 21:30 Temperature 97.6 F Pulse Rate 110 H 58 L 72 Respiratory Rate 20 14 18 Blood Pressure 97/71 L 108/85 120/74 Pulse Oximetry 85 L 98 93 Oxygen Delivery Room Air 07/14/24 00:00 07/14/24 00:00 07/14/24 00:00 Temperature 97.5 F L Pulse Rate 110 H 52 L Respiratory Rate 17 Blood Pressure 105/83 Pulse Oximetry 100 Oxygen Delivery Room Air 07/14/24 02:00 07/14/24 03:39 07/14/24 03:49 Temperature 97.6 F 97.7 F Pulse Rate 65 61 63 Respiratory Rate 24 H 17 Blood Pressure 145/53 H 144/52 H Pulse Oximetry 97 96 Oxygen Delivery 07/14/24 03:56 07/14/24 04:00 07/14/24 04:00 Temperature 97.7 F Pulse Rate 57 L 62 Respiratory Rate 18 Blood Pressure 149/58 H Pulse Oximetry 100 Oxygen Delivery Room Air 07/14/24 04:56 07/14/24 05:56 07/14/24 06:00 Temperature 97.8 F 97.6 F Pulse Rate 56 L 57 L 49 L Respiratory Rate 18 18 Blood Pressure 132/83 150/65 H Pulse Oximetry 98 99 Oxygen Delivery 07/14/24 06:20 Temperature 97.7 F Pulse Rate 57 L Respiratory Rate 18 Blood Pressure 170/88 H Pulse Oximetry 99 Oxygen Delivery Intake/Output Intake/Output: Intake & Output 07/11/24 07/12/24 07/13/24 07/14/24 23:59 23:59 23:59 23:59 Intake Total 1000 963.8 Output Total 150 Balance 1000 813.8 Meds/Results Medications: Active Medications Generic Name Dose Route Start Last Admin Trade Name Freq PRN Reason Stop Dose Admin Acetaminophen 650 mg 07/14/24 06:35 Acetaminophen 325 Mg Tablet PO Q4H PRN Mild Pain (1-5) Or Fever Sodium Chloride 1,000 mls @ 100 mls/hr 07/13/24 21:20 07/14/24 03:39 Normal Saline Iv IV CONT 0 mls/hr .Q10H SHARITA Infusion Sodium Chloride 250 mls @ 30 mls/hr 07/14/24 01:08 07/14/24 03:40 Normal Saline Iv IV CONT 07/14/24 09:27 0 mls/hr .Q8H20M STA Infusion Levothyroxine Sodium 75 mcg 07/14/24 06:45 Levothyroxine Sodium 75 Mcg Tablet PO DAILY@0630 SHARITA Metoprolol Succinate 100 mg 07/14/24 09:00 Metoprolol Succinate Ext Rel 100 Mg Tabcr PO QAM SHARITA Ondansetron HCl 4 mg 07/13/24 21:18 Ondansetron Inj 4 Mg/2 Ml Vial IV PUSH Q4H PRN Nausea Labs Labs: Laboratory Results - last 24 hr 07/13/24 07/14/24 19:36 00:28 WBC 7.8 RBC 2.59 L Hgb 8.1 L 6.9 L* Hct 26.5 L 22.7 L MCV 102.3 H MCH 31.3 MCHC 30.6 L RDW 15.9 H Plt Count 101 L MPV 13.0 H Immature Gran % (Auto) 0.6 H Neut % (Auto) 83.2 H Lymph % (Auto) 10.4 L [place] % (Auto) 4.6 Eos % (Auto) 0.8 Baso % (Auto) 0.4 Lymph # (Auto) 0.81 L [place] # (Auto) 0.4 Eos # (Auto) 0.1 Baso # (Auto) 0.0 Abs Immat Gran (auto) 0.05 H Absolute Neuts (auto) 6.5 Absolute Nucleated RBC 0.000 Nucleated RBC % 0.0 PT 20.1 H INR 1.6 APTT 27.1 Sodium 138 Potassium 4.4 Chloride 109 H Carbon Dioxide 19 L Anion Gap 10 BUN 52 H D Creatinine 1.07 H Estim Creat Clear Calc 26 Estimated GFR 48 L Glucose 96 Calcium 8.2 L Total Bilirubin 1.0 AST 21 ALT 17 Alkaline Phosphatase 68 Total Protein 5.0 L Albumin 3.3 L Blood Type O Positive Antibody Screen Negative Crossmatch See Detail Quality VTE Prophylaxis VTE prophylaxis: mechanical ordered (SCDs) Hospitalist MIPS Advance Care Plan I have confirmed that the patient's Advanced Care Plan is present, code status is documented, or surrogate decision maker is listed in patient medical record.: Yes Medication Reconciliation I have utilized all available resources to obtain, update and review the patients current medications (includes all prescriptions, OTC, herbals, cannabis, and nutritional supplements).: Yes
[2024-07-14 07:58] LABS: Anion Gap 7 mmol/L (4-12); Blood Urea Nitrogen 40 mg/dL (7-17); Calcium 7.6 mg/dL (8.4-10.2); Carbon Dioxide 18 mmol/L (22-30); Chloride 114 mmol/L (98-107); Estimated CRCL calculation 36 ml/min; Estimated Glomerular Filt Rate > 60; Glucose 79 mg/dL (65-110); Sodium 139 mmol/L (137-145)
[2024-07-14 08:34] LABS: Band Neutrophils Percent 2 % (0-6); Eosinophils Absolute Manual 0.05 K/mm3 (0.02-0.50); Eosinophils Percent Manual 1 % (0-4); Lymphocytes Absolute Manual 0.74 K/mm3 (1.1-4.5); Lymphocytes Percent Manual 13 % (18-44); Monocytes Absolute Manual 0.28 K/mm3 (0.1-0.90); Monocytes Percent Manual 5 % (3-9); Neutrophils Absolute Manual 4.61 K/mm3 (1.7-7.2); Neutrophils Percent Manual 79 % (46-73)
[2024-07-14 08:35] LABS: Anisocytosis 1+; Platelet Estimate Decreased (Adequate)
[2024-07-14 08:36] LABS: Schistocytes None Seen
--- OUTSIDE RECORDS SUMMARY | 2024-07-14 09:42 | XMS_ITS | CONTINUITY OF CARE DOCUMENT ---
Author Name aspennobletyron Address Unknown Organization [facility] Address [address] [facility] [address] [place] [address] Phone [phone] Care Team Providers Care Course Developer Name Role Phone Mehul MCKAY, Charly Unavailable CASANDRA MCKAY, YOLANDA Unavailable [phone] YOLANDA GUAJARDO MD Unavailable [phone] PROBLEMS Condition Status Date Provider Notes Chest pain active Charly Carver MD INSURANCE PROVIDERS Payer name Policy type / Coverage type [place] red libertarian ID [id number] [id number] [place] MEDICARE Medicare [id number] HISTORY OF PROCEDURES Procedure Date Procedure Name Provider Procedure Notes S tatus Cardiolite, 2 units Charly Carver MD completed SPECT Images Charly Carver MD complet ed Stress EKG Charly Carver MD completed Holter, 24 or 48 Charly Carver MD com pleted
--- OUTSIDE RECORDS SUMMARY | 2024-07-14 09:42 | XMS_ITS | Referral Summary ---
Author Organization [facility] [address] [facility] [address] Address [address] [place] [address] Care Team Providers Care Television Cable Installer Name Role Phone Adarsh Tan MD Primary Care Provider Encounters Date Type Department Care Team Description 05/28/2024 11:30 AM PRESIDING JUDGE Office Visit [facility] Cardiology [address] [facility] [address] [place] [address] Homar Greenwood MD Permanent atrial [...] 1 tablet (75 mcg total) by mouth indirect sales exec before breakfast Active metoprolol XL (TOPROL-XL) 100 [...] Comments Blood Pressure 130/70 05/28/2024 11:32 AM PRESIDING JUDGE Pulse 72 05/28/2024 11:32 AM PRESIDING JUDGE Temperature - - Respiratory Rate - - Oxygen Saturation 96% 05/28/2024 11:32 AM PRESIDING JUDGE Inhaled Oxygen Concentration - - Weight 52.7 kg (116 lb 1.6 oz) 05/28/2024 11:32 AM PRESIDING JUDGE Height 165.1 cm (5' 5 ) 05/28/2024 11:32 AM PRESIDING JUDGE Body Mass Index 19.32 05/28/2024 11:32 AM PRESIDING JUDGE Plan of Treatment Not on file Insurance [facility] MEDICARE ADVANTAGE [facility] MEDICARE ADVANTAGE Care Teams Television Cable Installer Relationship Specialty Start Date End Date Adarsh Tan MD [address] [facility] [address] [place] [address] PCP - General Internal Medicine 10/12/20
--- OUTSIDE RECORDS SUMMARY | 2024-07-14 09:42 | XMS_ITS | Encounter Summary ---
Author Organization [facility] ABEL Lopez [facility] Address [address] [place] [address] Care Team Providers Care Slot Host Name Role Phone Unavailable Primary Care Provider Unavailabl e Encounter Details Date Type Department Care Team (Late Contact Info) Description 07/08/2024 Orders Only [facility] Oncology and Hematology - Jermaine [address] [place] [phone] Antwan Irvin MD [facility] [place] [phone] Social History Tobacco Use Types Packs/Day Years Used Date Smoking Tobacco: Never Smokeless Tobacco: Never Alcohol Use Standard Drinks/Week Comments Yes 0 (1 standard drink = 0.6 oz pur e alcohol) Occasionally Comments Unknown Sex and Gender Information Value Date Recorded Sex Assigned at Not on file Legal Sex Female 10:37 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
--- OUTSIDE RECORDS SUMMARY | 2024-07-14 09:42 | XMS_ITS | Clinical Summary ---
Author Organization [facility] [address] Address [address] [place] [address] Care Team Providers Care Machining Manager Name Role Phone Adarsh Tan MD [...] 1 tablet (75 mcg total) by mouth supervisor asbestos textile before breakfast Active metoprolol XL (TOPROL-XL) 100 [...] Department Care Team Description 05/28/2024 11:30 AM BLOW MOLDER Office Visit [facility] Cardiology [address] [address] [address] [place] [phone] Homar Greenwood MD Permanent atrial fibrillation (HCC) [...] Comments Blood Pressure 130/70 05/28/2024 11:32 AM BLOW MOLDER Pulse 72 05/28/2024 11:32 AM BLOW MOLDER Temperature - - Respiratory Rate - - Oxygen Saturation 96% 05/28/2024 11:32 AM BLOW MOLDER Inhaled Oxygen Concentration - - Weight 52.7 kg (116 lb 1.6 oz) 05/28/2024 11:32 AM BLOW MOLDER Height 165.1 cm (5' 5 ) 05/28/2024 11:32 AM BLOW MOLDER Body Mass Index 19.32 05/28/2024 11:32 AM BLOW MOLDER Plan of Treatment Health Maintenance Due Date [...] Completed 11/19/2018, 12/2014 Insurance [facility] MEDICARE Address: [address] [phone] [facility] MEDICARE Address: [facility] [address] [place] [address] Care Teams Machining Manager Relationship Specialty Start Date End Date Adarsh Tan MD [address] [facility] [place] [address] PCP - General Internal Medicine 10/12/20
--- OUTSIDE RECORDS SUMMARY | 2024-07-14 09:43 | XMS_ITS | Clinical Summary ---
Author Organization [facility] Paula andrew [facility] Address [address] [address] Care Team Providers Care Pill Machine Operator Name Role Phone Unavailable Primary Care Provider [...] STL ABSTRACTION Provider, Abstract 07/08/2024 Orders Only [facility] Oncology and Hematology - Jermaine [address] [facility] [address] [place] [address] Antwan Irvin MD 07/07/2024 External Device Data STL ABSTRACTION Provider, Abstract 07/02/2024 Orders Only [facility] Oncology and Hematology - [address]ermaine [address] [place] [address] Antwan Irvin MD 07/01/2024 3:00 PM CDT Office Visit [facility] Oncology and Hematology - [address] [place] [address] Antwan Irvin MD Chronic anemia (Primary Dx); Other secondary thrombocytopenia 07/01/2024 Abstract [facility] Oncology and Hematology - [address]ermaine [address] [place] [address] Antwan Irvin MD from Last 3 Months [...] on file Legal Sex Female 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 Gender Identity Not on file Sexual Orientation [...] 07/22/2024 4:00 PM CDT Telephone Check Up [facility] Oncology and Hematology - Jermaine [address] [facility] [address] [place] [address] Antwan Irvin MD [address] [facility] [address] [place] [address] Health Maintenance Due Date Last Done Comments DTAP/TDAP/TD VACCINES (1 - Tdap) 1954 PNEUMOCOCCAL VACCINE 50+ YEARS (1 of 1 - PCV) 06/12/18 86 ZOSTER VACCINE (1 of 2) 1985 OSTEOPOROSIS SCREENING 2000 RSV VACCINE (60+ or ) (1 - 1-dose 75+ series) 2010 INFLUENZA VACCINE (#1) 2023 Medicare Advantage (PR) Prev entative Visit/Annual Wellness Visit 04/22/2024 Procedures [...] Resu lt from Last 3 Months Insurance [facility] [id number]
[2024-07-14] MEDS: METOPROLOL SUCCINATE EXT REL 100 MG TABCR PO (09:44)
[2024-07-14] MEDS: LACTATED RINGERS 1,000 ML 150 ML IV CONT (11:05)
--- NOTE | 2024-07-14 11:11 | P.PNAN_ITS ---
Anes - Initial Pre Proc Eval Procedure: Operation Date: 07/14/24 15:15 Proposed Procedures p Esophagogastroduodenoscopy - Lonnie Cunningham MD Date/Time: 07/14/24 11:11 Surgeon: Zeinab Dominguez DO Pre Op Diagnosis: Upper GI bleed Patient Data Age: 89 Gender: F Height: 1.6 m Weight: 52 kg Last Vital Signs Temp 35.9 C L 07/14/24 11:07 Pulse 73 07/14/24 11:07 Resp 20 07/14/24 11:07 BP 174/90 H 07/14/24 11:07 Pulse Ox 97 07/14/24 11:07 O2 Del Method Room Air 07/14/24 11:07 Allergies Allergy/AdvReac Type Severity Reaction Status Date / Time No Known Allergies Allergy Verified 07/14/24 11:05 Home Medications ?Medication ?Instructions ?Recorded ?Confirmed ?Type levothyroxine 75 mcg tablet 75 mcg PO DAILY 10/13/20 07/14/24 History simvastatin 20 mg tablet 20 mg PO DAILY 10/13/20 07/14/24 History apixaban 2.5 mg tablet (Eliquis) 2.5 mg PO Q12HR #60 tabs 10/17/20 07/14/24 Rx meclizine 25 mg tablet 25 mg PO BID Dizziness 04/13/21 07/14/24 History Vitamin D3 1,000 unit PO DAILY 08/01/22 07/14/24 History cyanocobalamin (vitamin B-12) 1,000 mcg PO DAILY 08/01/22 07/14/24 History 2,500 mcg tablet furosemide 20 mg tablet (Lasix) 20 mg PO EVERY OTHER DAY PRN edema 12/16/23 History or weight gain acetaminophen 325 mg tablet 650 mg (2 x 325 mg) PO Q4H PRN 01/05/24 07/14/24 Rx Mild Pain (1-5) Or Fever #30 tabs oxybutynin chloride 5 mg tablet 5 mg PO BID #60 tabs 01/05/24 07/14/24 Rx donepezil 5 mg tablet 5 mg PO DAILY 07/14/24 07/14/24 History metoprolol succinate 25 mg 100 mg PO QAM 07/14/24 07/14/24 History tablet,extended release 24 hr (Toprol XL) Laboratory Tests 07/13/24 07/14/24 07/14/24 19:36 00:28 07:36 WBC 7.8 K/mm3 5.7 K/mm3 (4.5-10.0) (4.5-10.0) RBC 2.59 L M/mm3 2.80 L M/mm3 (4.2-5.4) (4.2-5.4) Hgb 8.1 L g/dL 6.9 L* g/dL 8.6 L g/dL (12.0-15.0) (12.0-15.0) (12.0-15.0) Hct 26.5 L % 22.7 L % 28.6 L % (37.0-47.0) (37.0-47.0) (37.0-47.0) MCV 102.3 H fl 102.1 H fl (80-100) (80-100) MCH 31.3 pg 30.7 pg (26-34) (26-34) MCHC 30.6 L g/dl 30.1 L g/dl (32-36) (32-36) RDW 15.9 H % 16.9 H % (11.5-14.5) (11.5-14.5) Plt Count 101 L k/mm3 76 L k/mm3 (150-375) (150-375) MPV 13.0 H fl 13.3 H fl (7.4-10.4) (7.4-10.4) Immature Gran % (Auto) 0.6 H % Not Reportable (0-0.5) Neut % (Auto) 83.2 H % Not Reportable (45.5-73.1) Lymph % (Auto) 10.4 L % Not Reportable (18.3-44.2) [place] % (Auto) 4.6 % Not Reportable (2.6-8.5) Eos % (Auto) 0.8 % Not Reportable (0-4.4) Baso % (Auto) 0.4 % Not Reportable (0.2-1.2) Lymph # (Auto) 0.81 L K/mm3 Not Reportable (0.9-3.2) [place] # (Auto) 0.4 K/mm3 Not Reportable (0.1-0.6) Eos # (Auto) 0.1 K/mm3 Not Reportable (0-0.3) Baso # (Auto) 0.0 K/mm3 Not Reportable (0.0-0.1) Abs Immat Gran (auto) 0.05 H K/mm3 Not Reportable (0.00-0.031) Absolute Neuts (auto) 6.5 K/mm3 Not Reportable (1.3-6.7) Absolute Nucleated RBC 0.000 K/mm3 Not Reportable (0.0-0.012) Neutrophils % (Manual) 79 H % (46-73) Band Neutrophils % 2 % (0-6) Lymphocytes % (Manual) 13 L % (18-44) Monocytes % (Manual) 5 % (3-9) Eosinophils % (Manual) 1 % (0-4) Nucleated RBC % 0.0 % Not Reportable (0.0-0.2) Abs Neuts (Manual) 4.61 K/mm3 (1.7-7.2) Abs Lymphs (Manual) 0.74 L K/mm3 (1.1-4.5) Abs Monocytes (Manual) 0.28 K/mm3 (0.1-0.90) Absolute Eos (Manual) 0.05 K/mm3 (0.02-0.50) Platelet Estimate Decreased (Adequate) % Immature Plt Fraction 7.9 % (0.9-11.2) Anisocytosis 1+ Schistocytes None seen PT 20.1 H Seconds (11.1-14.7) INR 1.6 APTT 27.1 Seconds (22.3-36.8) Sodium 138 mmol/L 139 mmol/L (137-145) (137-145) Potassium 4.4 mmol/L 4.0 mmol/L (3.4-5.0) (3.4-5.0) Chloride 109 H mmol/L 114 H mmol/L (98-107) (98-107) Carbon Dioxide 19 L mmol/L 18 L mmol/L (22-30) (22-30) Anion Gap 10 mmol/L 7 mmol/L (4-12) (4-12) BUN 52 H D mg/dL 40 H D mg/dL (7-17) (7-17) Creatinine 1.07 H mg/dL 0.75 mg/dL (0.7-1.0) (0.7-1.0) Estim Creat Clear Calc 26 ml/min 36 ml/min Estimated GFR 48 L > 60 (59 - ) (59 - ) Glucose 96 mg/dL 79 mg/dL (65-110) (65-110) Calcium 8.2 L mg/dL 7.6 L mg/dL (8.4-10.2) (8.4-10.2) Total Bilirubin 1.0 mg/dL (0.2-1.3) AST 21 U/L (14-36) ALT 17 U/L (6-35) Alkaline Phosphatase 68 U/L (38-126) Total Protein 5.0 L g/dL (6.3-8.2) Albumin 3.3 L g/dL (3.5-5.1) Blood Type O Positive Antibody Screen Negative Crossmatch See Detail Patient hx anesthesia problems: none Family hx anesthesia problems: none Results Review: All pre-operative results and documents have been reviewed as part of the pre- operative evaluation. 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 EF as low as 20 to 25% in September 2020 but improved to 57% in January 2021. Hyperlipidemia Hypothyroidism Hypertension Congestive heart failure Surgical History Surgical History History of hip surgery (11/2023) ORIF left hip History of bilateral cataract extraction History of hysterectomy for benign disease Family History Family History Father Tuberculosis Social History Social History Social History: She has 3 children, 2 girls and a boy. Her daughter lives with her. 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 Code status: Full code. Surrogate decision maker: Celina Catarino and Leda Farr, daughters. Smoking status: Never smoker Second hand tobacco smoke exposure: Yes Alcohol intake: current Drinks per week: 1 Substance use: never Substance use type: does not use Do You Feel Safe in your Home?: Yes Lack of Transportation: No Lack of Food: Never True Current Housing: I Have Housing Concerned About Future Housing: No Difficulty Paying Gas/Electric Bills: No Difficulty Paying for Meds: No Currently Unemployed: No Education: Decline to Answer Difficulty w/ Childcare or Family Care: No Living arrangements: alone Additional living arrangements comments: The patient is and lives in her own home in [place]. 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 Informed Consent: The patient's anesthetic plan and its attendant risks and benefits were discussed with the patient/family/POA. Questions were solicited and answers provided to the satisfaction of the patient/family/POA.
--- NOTE | 2024-07-14 11:11 | P.PNAN_ITS ---
Anes - Eval Pre Procedure Procedure: Operation Date: 07/14/24 15:15 Proposed Procedures p Esophagogastroduodenoscopy - Lonnie Cunningham MD Date/Time: 07/14/24 11:11 Pre Op Diagnosis: Upper GI bleed Patient Data Age: 89 Gender: F Height: 1.6 m Weight: 52 kg Last Vital Signs Temp 96.6 F L 07/14/24 11:07 Pulse 73 07/14/24 11:07 Resp 20 07/14/24 11:07 BP 174/90 H 07/14/24 11:07 Pulse Ox 97 07/14/24 11:07 O2 Del Method Room Air 07/14/24 11:07 Allergies Allergy/AdvReac Type Severity Reaction Status Date / Time No Known Allergies Allergy Verified 07/14/24 11:05 Home Medications ?Medication ?Instructions ?Recorded ?Confirmed ?Type levothyroxine 75 mcg tablet 75 mcg PO DAILY 10/13/20 07/14/24 History simvastatin 20 mg tablet 20 mg PO DAILY 10/13/20 07/14/24 History apixaban 2.5 mg tablet (Eliquis) 2.5 mg PO Q12HR #60 tabs 10/17/20 07/14/24 Rx meclizine 25 mg tablet 25 mg PO BID Dizziness 04/13/21 07/14/24 History Vitamin D3 1,000 unit PO DAILY 08/01/22 07/14/24 History cyanocobalamin (vitamin B-12) 1,000 mcg PO DAILY 08/01/22 07/14/24 History 2,500 mcg tablet furosemide 20 mg tablet (Lasix) 20 mg PO EVERY OTHER DAY PRN edema 12/16/23 07/14/24 History or weight gain acetaminophen 325 mg tablet 650 mg (2 x 325 mg) PO Q4H PRN 01/05/24 07/14/24 Rx Mild Pain (1-5) Or Fever #30 tabs oxybutynin chloride 5 mg tablet 5 mg PO BID #60 tabs 01/05/24 07/14/24 Rx donepezil 5 mg tablet 5 mg PO DAILY 07/14/24 07/14/24 History metoprolol succinate 25 mg 100 mg PO QAM 07/14/24 07/14/24 History tablet,extended release 24 hr (Toprol XL) Laboratory Tests 07/13/24 07/14/2407/14/25 19:36 00:28 07:36 WBC 7.8 K/mm3 5.7 K/mm3 (4.5-10.0) (4.5-10.0) RBC 2.59 L M/mm3 2.80 L M/mm3 (4.2-5.4) (4.2-5.4) Hgb 8.1 L g/dL 6.9 L* g/dL 8.6 L g/dL (12.0-15.0) (12.0-15.0) (12.0-15.0) Hct 26.5 L % 22.7 L % 28.6 L % (37.0-47.0) (37.0-47.0) (37.0-47.0) MCV 102.3 H fl 102.1 H fl (80-100) (80-100) MCH 31.3 pg 30.7 pg (26-34) (26-34) MCHC 30.6 L g/dl 30.1 L g/dl (32-36) (32-36) RDW 15.9 H % 16.9 H % (11.5-14.5) (11.5-14.5) Plt Count 101 L k/mm3 76 L k/mm3 (150-375) (150-375) MPV 13.0 H fl 13.3 H fl (7.4-10.4) (7.4-10.4) Immature Gran % (Auto) 0.6 H % Not Reportable (0-0.5) Neut % (Auto) 83.2 H % Not Reportable (45.5-73.1) Lymph % (Auto) 10.4 L % Not Reportable (18.3-44.2) [place] % (Auto) 4.6 % Not Reportable (2.6-8.5) Eos % (Auto) 0.8 % Not Reportable (0-4.4) Baso % (Auto) 0.4 % Not Reportable (0.2-1.2) Lymph # (Auto) 0.81 L K/mm3 Not Reportable (0.9-3.2) [place] # (Auto) 0.4 K/mm3 Not Reportable (0.1-0.6) Eos # (Auto) 0.1 K/mm3 Not Reportable (0-0.3) Baso # (Auto) 0.0 K/mm3 Not Reportable (0.0-0.1) Abs Immat Gran (auto) 0.05 H K/mm3 Not Reportable (0.00-0.031) Absolute Neuts (auto) 6.5 K/mm3 Not Reportable (1.3-6.7) Absolute Nucleated RBC 0.000 K/mm3 Not Reportable (0.0-0.012) Neutrophils % (Manual) 79 H % (46-73) Band Neutrophils % 2 % (0-6) Lymphocytes % (Manual) 13 L % (18-44) Monocytes % (Manual) 5 % (3-9) Eosinophils % (Manual) 1 % (0-4) Nucleated RBC % 0.0 % Not Reportable (0.0-0.2) Abs Neuts (Manual) 4.61 K/mm3 (1.7-7.2) Abs Lymphs (Manual) 0.74 L K/mm3 (1.1-4.5) Abs Monocytes (Manual) 0.28 K/mm3 (0.1-0.90) Absolute Eos (Manual) 0.05 K/mm3 (0.02-0.50) Platelet Estimate Decreased (Adequate) % Immature Plt Fraction 7.9 % (0.9-11.2) Anisocytosis 1+ Schistocytes None seen PT 20.1 H Seconds (11.1-14.7) INR 1.6 APTT 27.1 Seconds (22.3-36.8) Sodium 138 mmol/L 139 mmol/L (137-145) (137-145) Potassium 4.4 mmol/L 4.0 mmol/L (3.4-5.0) (3.4-5.0) Chloride 109 H mmol/L 114 H mmol/L (98-107) (98-107) Carbon Dioxide 19 L mmol/L 18 L mmol/L (22-30) (22-30) Anion Gap 10 mmol/L 7 mmol/L (4-12) (4-12) BUN 52 H D mg/dL 40 H D mg/dL (7-17) (7-17) Creatinine 1.07 H mg/dL 0.75 mg/dL (0.7-1.0) (0.7-1.0) Estim Creat Clear Calc 26 ml/min 36 ml/min Estimated GFR 48 L > 60 (59 - ) (59 - ) Glucose 96 mg/dL 79 mg/dL (65-110) (65-110) Calcium 8.2 L mg/dL 7.6 L mg/dL (8.4-10.2) (8.4-10.2) Total Bilirubin 1.0 mg/dL (0.2-1.3) AST 21 U/L (14-36) ALT 17 U/L (6-35) Alkaline Phosphatase 68 U/L (38-126) Total Protein 5.0 L g/dL (6.3-8.2) Albumin 3.3 L g/dL (3.5-5.1) Blood Type O Positive Antibody Screen Negative Crossmatch See Detail Patient hx anesthesia problems: none Family hx anesthesia problems: none Results Review: All pre-operative results and documents have been reviewed as part of the pre- operative evaluation. 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 EF as low as 20 to 25% in September 2020 but improved to 57% in January 2021. Hyperlipidemia Hypothyroidism Hypertension Congestive heart failure Surgical History Surgical History History of hip surgery (11/2023) ORIF left hip History of bilateral cataract extraction History of hysterectomy for benign disease Family History Family History Father Tuberculosis Social History Social History Social History: She has 3 children, 2 girls and a boy. Her daughter lives with her. 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 Code status: Full code. Surrogate decision maker: Celina Catarino and Leda Farr, daughters. Smoking status: Never smoker Second hand tobacco smoke exposure: Yes Alcohol intake: current Drinks per week: 1 Substance use: never Substance use type: does not use Do You Feel Safe in your Home?: Yes Lack of Transportation: No Lack of Food: Never True Current Housing: I Have Housing Concerned About Future Housing: No Difficulty Paying Gas/Electric Bills: No Difficulty Paying for Meds: No Currently Unemployed: No Education: Decline to Answer Difficulty w/ Childcare or Family Care: No Living arrangements: alone Additional living arrangements comments: The patient is and lives in her own home in [place]. 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
--- NOTE | 2024-07-14 11:13 | P.PNAN_ITS ---
Anes - Eval Final PreProcedure Day of Procedure 07/14/24 11:13 Patient weight: normal Heart: irregular rhythm Lungs: clear to auscultation Airway: Mallampati scale class II Neurological: alert and oriented Last oral intake: >/= 8 hours ASA classification: III Emergent: no Anesthetic plan: proceed Anesthesia type and monitoring: general GIVS and standard monitoring Results Review: All pre-operative results and documents have been reviewed as part of the pre- operative evaluation. Informed Consent: The patient's anesthetic plan and its attendant risks and benefits were discussed with the patient/family/POA. Questions were solicited and answers provided to the satisfaction of the patient/family/POA.
--- NOTE | 2024-07-14 11:20 | P.CONGI_ITS ---
Assessment and Plan Assessment and plan (1) Acute GI hemorrhage: Code(s): K92.2 - Gastrointestinal hemorrhage, unspecified Status: Acute Assessment and Plan: patient on anticoagulation and a history of active and states use, suspicious for peptic ulcer disease as a main cause of her upper GI bleeding. Will perform EGD and possible therapeutic hemostasis and will continue monitoring hemodynamically and with IV Protonix. GI Consult Note Consult date/time: 07/14/24 11:20 Reason for consult: GI bleeding HPI: Renata Brown is a 89 year old female who presents ER with melena since 3 pm yesterday, several episodes, followed by progressive weakness and dizziness, but no syncopal episodes. Reports she has been taking Aleve twice a day most daily for last 3 weeks since breaking a rib. She is also on Elliquis for A fibrillation. She was transfused 2 units of PRBC and has remained stable throught the night. 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 EF as low as 20 to 25% in September 2020 but improved to 57% in January 2021. Hyperlipidemia Hypothyroidism Hypertension Congestive heart failure Surgical History Surgical History History of hip surgery (11/2023) ORIF left hip History of bilateral cataract extraction History of hysterectomy for benign disease Family History Family History Father Tuberculosis Social History Social History Social History: She has 3 children, 2 girls and a boy. Her daughter lives with her. 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 Code status: Full code. Surrogate decision maker: Celina Catarino and Leda Farr, daughters. Smoking status: Never smoker Second hand tobacco smoke exposure: Yes Alcohol intake: current Drinks per week: 1 Substance use: never Substance use type: does not use Do You Feel Safe in your Home?: Yes Lack of Transportation: No Lack of Food: Never True Current Housing: I Have Housing Concerned About Future Housing: No Difficulty Paying Gas/Electric Bills: No Difficulty Paying for Meds: No Currently Unemployed: No Education: Decline to Answer Difficulty w/ Childcare or Family Care: No Living arrangements: alone Additional living arrangements comments: The patient is and lives in her own home in [place]. 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 Spiritual care concerns: No Meds Home Medications and Allergies Home Medications ?Medication ?Instructions ?Recorded ?Confirmed ?Type levothyroxine 75 mcg tablet 75 mcg PO DAILY 10/13/20 07/14/24 History simvastatin 20 mg tablet 20 mg PO DAILY 10/13/20 07/14/24 History apixaban 2.5 mg tablet (Eliquis) 2.5 mg PO Q12HR #60 tabs 10/17/20 07/14/24 Rx meclizine 25 mg tablet 25 mg PO BID Dizziness 04/13/21 07/14/24 History Vitamin D3 1,000 unit PO DAILY 08/01/22 07/14/24 History cyanocobalamin (vitamin B-12) 1,000 mcg PO DAILY 08/01/22 07/14/24 History 2,500 mcg tablet furosemide 20 mg tablet (Lasix) 20 mg PO EVERY OTHER DAY PRN edema 12/16/23 07/14/24 History or weight gain acetaminophen 325 mg tablet 650 mg (2 x 325 mg) PO Q4H PRN 01/05/24 07/14/24 Rx Mild Pain (1-5) Or Fever #30 tabs oxybutynin chloride 5 mg tablet 5 mg PO BID #60 tabs 01/05/24 07/14/24 Rx donepezil 5 mg tablet 5 mg PO DAILY 07/14/24 07/14/24 History metoprolol succinate 25 mg 100 mg PO QAM 07/14/24 07/14/24 History tablet,extended release 24 hr (Toprol XL) Allergies Allergy/AdvReac Type Severity Reaction Status Date / Time No Known Allergies Allergy Verified 07/14/24 11:05 Vital Signs Vital Signs - 24 hr 07/13/24 19:07 07/13/24 19:41 07/13/24 21:30 Temperature 97.6 F Pulse Rate 110 H 58 L 72 Respiratory Rate 20 14 18 Blood Pressure 97/71 L 108/85 120/74 Pulse Oximetry 85 L 98 93 Oxygen Delivery Room Air 07/14/24 00:00 07/14/24 00:00 07/14/24 00:00 Temperature 97.5 F L Pulse Rate 110 H 52 L Respiratory Rate 17 Blood Pressure 105/83 Pulse Oximetry 100 Oxygen Delivery Room Air 07/14/24 02:00 07/14/24 03:39 07/14/24 03:49 Temperature 97.6 F 97.7 F Pulse Rate 65 61 63 Respiratory Rate 24 H 17 Blood Pressure 145/53 H 144/52 H Pulse Oximetry 97 96 Oxygen Delivery 07/14/24 03:56 07/14/24 04:00 07/14/24 04:00 Temperature 97.7 F Pulse Rate 57 L 62 Respiratory Rate 18 Blood Pressure 149/58 H Pulse Oximetry 100 Oxygen Delivery Room Air 07/14/24 04:56 07/14/24 05:56 07/14/24 06:00 Temperature 97.8 F 97.6 F Pulse Rate 56 L 57 L 49 L Respiratory Rate 18 18 Blood Pressure 132/83 150/65 H Pulse Oximetry 98 99 Oxygen Delivery 07/14/24 06:20 07/14/24 07:51 07/14/24 11:07 Temperature 97.7 F 97.5 F L 96.6 F L Pulse Rate 57 L 55 L 73 Respiratory Rate 18 16 20 Blood Pressure 170/88 H 157/66 H 174/90 H Pulse Oximetry 99 93 97 Oxygen Delivery Room Air Exam 2 Narrative: Weight 52 kg BMI 19.1 Const: Other: No acute distress, well-developed well-nourished, appears stated age HENMT: Other: No oral pharyngeal erythema, edentulous in upper and lower jaw, she reports she does not wear dentures, head is normocephalic atraumatic Eyes: Other: Marked conjunctival pallor, mild scleral icterus left greater than right, evidence of bilateral lens replacements Neck: Other: No JVD, no lymphadenopathy Resp: Other: Clear to auscultation bilaterally, no increased work breathing Cardio: Other: Bradycardic, regular rhythm, no murmur, 2+ bilateral radial pedal pulses GI: Other: Soft, nontender, nondistended, normoactive bowel sounds : Other: Incontinent of urine, pure wick catheter present but not attached to external suction Skin: Other: Marked pallor, non jaundice, bruising to the right lateral posterior rib cage, scattered bruises to the extensor surfaces of arms bilaterally Neuro: Other: Alert oriented to person, month, year and fair recall of recent events, no obvious facial asymmetry, no gross motor deficits noted during the course of casual conversation Extrem: Other: No clubbing, cyanosis trace edema of the feet bilaterally Psych: Other: Pleasant and cooperative, appropriate mood and affect Results Labs 07/14/24 07:36 07/14/24 07:36 Labs: Short CBC 07/13/24 07/14/24 07/14/24 Range/Units 19:36 00:28 07:36 WBC 7.8 5.7 (4.5-10.0) K/mm3 Hgb 8.1 L 6.9 L* 8.6 L (12.0-15.0) g/dL Hct 26.5 L 22.7 L 28.6 L (37.0-47.0) % Plt Count 101 L 76 L (150-375) k/mm3 BMP 07/13/24 07/14/24 19:36 07:36 Sodium 138 139 Potassium 4.4 4.0 Chloride 109 H 114 H Carbon Dioxide 19 L 18 L BUN 52 H D 40 H D Creatinine 1.07 H 0.75 Glucose 96 79 Calcium 8.2 L 7.6 L Liver Function 07/13/24 Range/Units 19:36 Total Bilirubin 1.0 (0.2-1.3) mg/dL AST 21 (14-36) U/L ALT 17 (6-35) U/L Alkaline Phosphatase 68 (38-126) U/L Albumin 3.3 L (3.5-5.1) g/dL
[2024-07-14] MEDS: EPINEPHrine INJ 1 MG/10 ML SYRINGE 0.2 MG XX (11:44)
--- NOTE | 2024-07-14 12:19 | SUR.PHASEII ---
Md doe notified of pt BP 199/101. orders given for 5mg IV metoprolol once.
[2024-07-14] MEDS: METOPROLOL TARTRATE INJ 5 MG/5 ML VIAL IV PUSH (12:26)
[2024-07-14] MEDS: PANTOPRAZOLE SODIUM IV 80 MG in SODIUM CHLORIDE 0.9% IV 500 ML 50 MG IV CONT ×2 (13:20→23:29)
[2024-07-14] MEDS: SODIUM CHLORIDE 0.9% IV 1,000 ML 100 ML IV CONT ×2 (13:21→23:30)
[2024-07-14 14:17] LABS: Hemoglobin 9.2 g/dL (12.0-15.0)
[2024-07-14 18:31] LABS: Hematocrit 26.8 % (37.0-47.0); Hemoglobin 8.6 g/dL (12.0-15.0)
[2024-07-15] VITALS (15 sets, daily range): BP systolic 146–177; BP diastolic 50–60; PULSE 47–59; RESP 16–20; TEMP 36.4–37.1; O2SAT 94–100
[2024-07-15 01:52] LABS: Hematocrit 25.5 % (37.0-47.0); Hemoglobin 7.9 g/dL (12.0-15.0)
[2024-07-15] MEDS: LEVOTHYROXINE SODIUM 75 MCG TABLET PO (05:47)
[2024-07-15 09:14] LABS: Hematocrit 25.5 % (37.0-47.0); Hemoglobin 7.7 g/dL (12.0-15.0)
[2024-07-15] MEDS: SODIUM CHLORIDE 0.9% IV 1,000 ML 100 ML IV CONT ×2 (09:56→20:24)
[2024-07-15] MEDS: PANTOPRAZOLE SODIUM IV 80 MG in SODIUM CHLORIDE 0.9% IV 500 ML 50 MG IV CONT ×2 (09:57→20:24)
--- NOTE | 2024-07-15 10:46 | PM.IMPN ---
Progress Note: A&P Assessment and Plan (1) Acute GI hemorrhage: Code(s): K92.2 - Gastrointestinal hemorrhage, unspecified Status: Acute (2) Hypotension due to blood loss: Code(s): I95.89 - Other hypotension; R58 - Hemorrhage, not elsewhere classified Status: Acute (3) Acute on chronic anemia: Code(s): D64.9 - Anemia, unspecified Status: Acute (4) Uremia: Code(s): N19 - Unspecified kidney failure Status: Acute (5) Thrombocytopenia: Code(s): D69.6 - Thrombocytopenia, unspecified Status: Acute (6) Chronic anticoagulation: Code(s): Z79.01 - skilled nursing (current) use of anticoagulants Status: Acute (7) Chronic kidney disease, stage 3a: Code(s): N18.31 - Chronic kidney disease, stage 3a Status: Acute Plan GI Bleed Patient underwent EGD which shows acute gastric ulcer and gastritis with bleeding recommended to continue IV pantoprazole and keeping NPO for at least 36 hours in case of rebleeding. H&H Q 8 hours Possible due to an NSAiD intake and Eliquis Received 1 unit PRBC Protonix 80 mg IV Anticipated EGD a.m. Monitor H&H Transfuse if hemoglobin less than 7 GI consulted Will hold diuretic therapy A Fib Hold Eliquis Continue metoprolol succinate 100 mg p.o. q.d. Hypothyroidism Continue levothyroxine 75 mcg Subjective Date/time seen: 07/15/24 10:46 Interval history: Interval history:89-year-old female with past medical history of mild dementia, paroxysmal AFib on chronic anticoagulation with Eliquis, chronic thrombocytopenia, hypothyroidism, essential hypertension, urge urinary incontinence and chronic kidney disease stage 3 who presented to the ER due to rectal bleeding. Patient reported 4 episodes of maroon stools. She had recently had fall and had some rib pain and was started on Aleve by family 2 weeks ago. 07/15: Probably will start diet tonight after discussing with GI. Monitoring H&H every 8 hours Review of Systems Review of Systems: 12 systems were reviewed with pertinent positives and negatives per HPI. Except as documented in the HPI, all other systems were reviewed and are negative. Exam Narrative: Weight 52 kg BMI 19.1 Const: Other: No acute distress, well-developed well-nourished, appears stated age HENMT: Other: No oral pharyngeal erythema, edentulous in upper and lower jaw, she reports she does not wear dentures, head is normocephalic atraumatic Eyes: Other: Marked conjunctival pallor, mild scleral icterus left greater than right, evidence of bilateral lens replacements Neck: Other: No JVD, no lymphadenopathy Resp: Other: Clear to auscultation bilaterally, no increased work breathing Cardio: Other: Bradycardic, regular rhythm, no murmur, 2+ bilateral radial pedal pulses GI: Other: Soft, nontender, nondistended, normoactive bowel sounds : Other: Incontinent of urine, pure wick catheter present but not attached to external suction Skin: Other: Marked pallor, non jaundice, bruising to the right lateral posterior rib cage, scattered bruises to the extensor surfaces of arms bilaterally Neuro: Other: Alert oriented to person, month, year and fair recall of recent events, no obvious facial asymmetry, no gross motor deficits noted during the course of casual conversation Extrem: Other: No clubbing, cyanosis trace edema of the feet bilaterally Psych: Other: Pleasant and cooperative, appropriate mood and affect Objective Data Vital Signs Vital Signs: Vital Signs - 24 hr 07/14/24 11:07 07/14/24 11:52 07/14/24 12:02 Temperature 96.6 F L Pulse Rate 73 58 L 65 Respiratory Rate 20 18 26 H Blood Pressure 174/90 H 146/75 H 178/94 H Pulse Oximetry 97 93 93 Oxygen Delivery Room Air Room Air Room Air 07/14/24 12:12 07/14/24 12:26 07/14/24 12:42 Temperature Pulse Rate 81 68 65 Respiratory Rate 31 H 33 H Blood Pressure 199/101 H 183/102 H Pulse Oximetry 97 93 Oxygen Delivery Room Air Room Air 07/14/24 16:00 07/14/24 16:00 07/14/24 16:00 Temperature 98.1 F Pulse Rate 58 L 52 L 52 L Respiratory Rate 16 16 Blood Pressure 171/68 H Pulse Oximetry 100 100 Oxygen Delivery Room Air 07/14/24 17:51 07/14/24 19:39 07/14/24 20:00 Temperature 98.0 F Pulse Rate 54 L 62 Respiratory Rate 16 Blood Pressure 160/57 H Pulse Oximetry 94 Oxygen Delivery Room Air 07/14/24 20:00 07/14/24 22:00 07/15/24 00:00 Temperature Pulse Rate 55 L 52 L Respiratory Rate Blood Pressure Pulse Oximetry Oxygen Delivery Room Air 07/15/24 00:00 07/15/24 00:00 07/15/24 02:00 Temperature 97.6 F Pulse Rate 54 L 51 L 49 L Respiratory Rate 16 Blood Pressure 147/56 H Pulse Oximetry 96 Oxygen Delivery 07/15/24 03:51 07/15/24 04:00 07/15/24 04:00 Temperature 98.2 F Pulse Rate 53 L 53 L Respiratory Rate 16 Blood Pressure 146/58 H Pulse Oximetry 94 Oxygen Delivery Room Air 07/15/24 06:00 07/15/24 08:00 Temperature 97.9 F Pulse Rate 49 L 48 L Respiratory Rate 20 Blood Pressure 147/50 H Pulse Oximetry 100 Oxygen Delivery Intake/Output Intake/Output: Intake & Output 07/12/24 07/13/24 07/14/24 07/15/24 23:59 23:59 23:59 23:59 Intake Total 1000 3050.5 1500 Output Total 350 500 Balance 1000 2700.5 1000 Meds/Results Medications: Active Medications Generic Name Dose Route Start Last Admin Trade Name Freq PRN Reason Stop Dose Admin Acetaminophen 650 mg 07/14/24 06:35 Acetaminophen 325 Mg Tablet PO Q4H PRN Mild Pain (1-5) Or Fever Sodium Chloride 1,000 mls @ 100 mls/hr 07/13/24 21:20 07/15/24 09:56 Normal Saline Iv IV CONT 100 mls/hr .Q10H SHARITA Administration Pantoprazole Sodium 80 mg/ 500 mls @ 50 mls/hr 07/14/24 09:40 07/15/24 09:57 Sodium Chloride IV CONT 50 mls/hr .Q10H SHARITA Administration Levothyroxine Sodium 75 mcg 07/14/24 06:45 07/15/24 05:47 Levothyroxine Sodium 75 Mcg Tablet PO 75 mcg DAILY@0630 SHARITA Administration Metoprolol Succinate 100 mg 07/14/24 09:00 07/14/24 09:44 Metoprolol Succinate Ext Rel 100 Mg Tabcr PO 100 mg QAM SHARITA Administration Ondansetron HCl 4 mg 07/13/24 21:18 Ondansetron Inj 4 Mg/2 Ml Vial IV PUSH Q4H PRN Nausea Labs Labs: Laboratory Results - last 24 hr 07/14/24 07/14/24 07/15/24 14:01 18:09 01:48 Hgb 9.2 L 8.6 L 7.9 L Hct 30.0 L 26.8 L 25.5 L 07/15/24 08:56 Hgb 7.7 L Hct 25.5 L Quality VTE Prophylaxis VTE prophylaxis: mechanical ordered (SCDs) Hospitalist MIPS Advance Care Plan I have confirmed that the patient's Advanced Care Plan is present, code status is documented, or surrogate decision maker is listed in patient medical record.: Yes Medication Reconciliation I have utilized all available resources to obtain, update and review the patients current medications (includes all prescriptions, OTC, herbals, cannabis, and nutritional supplements).: Yes
[2024-07-15 16:30] LABS: Hematocrit 25.3 % (37.0-47.0); Hemoglobin 7.9 g/dL (12.0-15.0)
--- NOTE | 2024-07-15 16:43 | WPDGIPROGNO ---
Progress Note: A&P Assessment and Plan (1) Bleeding gastric ulcer: Code(s): K25.4 - Chronic or unspecified gastric ulcer with hemorrhage Status: Acute Assessment and Plan: Following successful endoscopic therapy for a gastric ulcer with stigmata of recent bleeding, the patient is doing well. A liquid diet will be initiated today and advanced as tolerated tomorrow. We will begin pantoprazole 40 mg orally twice daily tomorrow, to be continued for a minimum of one month. A follow-up EGD will be scheduled in two months to assess ulcer healing. A fecal H. pylori antigen test will be obtained tomorrow. The patient will be monitored overnight and discharged in 48 hours, depending on continued stability. Plan - Continue IV Pantoprazole today - Switch to Pantoprazole 40 mg biD starting tomorrow - Fecal H pylori antigen - Feed today full liquid diet and advance tomorrow to regular diet - Possible discharge on 07/17 Subjective Date/time seen: 07/15/24 16:43 Interval history: The patient is hemodynamically stable and has not presented any evidence of GI bleeding. her hemoglobin has remained stable after transfusion. Exam Narrative: Alert and oriented x3. Skin: Still markedly pale. Abdomen: Soft, nontender, nondistended, bowel sounds present, no visceromegaly. Rest of the examination within normal limits. Objective Data Vital Signs Vital Signs: Vital Signs - 24 hr 07/14/24 17:51 07/14/24 19:39 07/14/24 20:00 Temperature 98.0 F Pulse Rate 54 L 62 Respiratory Rate 16 Blood Pressure 160/57 H Pulse Oximetry 94 Oxygen Delivery Room Air 07/14/24 20:00 07/14/24 22:00 07/15/24 00:00 Temperature Pulse Rate 55 L 52 L Respiratory Rate Blood Pressure Pulse Oximetry Oxygen Delivery Room Air 07/15/24 00:00 07/15/24 00:00 07/15/24 02:00 Temperature 97.6 F Pulse Rate 54 L 51 L 49 L Respiratory Rate 16 Blood Pressure 147/56 H Pulse Oximetry 96 Oxygen Delivery 07/15/24 03:51 07/15/24 04:00 07/15/24 04:00 Temperature 98.2 F Pulse Rate 53 L 53 L Respiratory Rate 16 Blood Pressure 146/58 H Pulse Oximetry 94 Oxygen Delivery Room Air 07/15/24 06:00 07/15/24 08:00 07/15/24 08:00 Temperature 97.9 F Pulse Rate 49 L 48 L 47 L Respiratory Rate 20 Blood Pressure 147/50 H Pulse Oximetry 100 Oxygen Delivery 07/15/24 10:00 07/15/24 11:52 07/15/24 12:00 Temperature 97.5 F L Pulse Rate 49 L 55 L 48 L Respiratory Rate 16 Blood Pressure 162/60 H Pulse Oximetry 99 Oxygen Delivery 07/15/24 12:29 07/15/24 14:00 07/15/24 16:00 Temperature 97.7 F Pulse Rate 48 L 48 L 52 L Respiratory Rate 18 Blood Pressure 173/53 H Pulse Oximetry 98 Oxygen Delivery Intake/Output Intake/Output: Intake & Output 07/12/24 07/13/24 07/14/24 07/15/24 23:59 23:59 23:59 23:59 Intake Total 1000 3050.5 1500 Output Total 350 500 Balance 1000 2700.5 1000 Meds/Results Medications: Active Medications Generic Name Dose Route Start Last Admin Trade Name Freq PRN Reason Stop Dose Admin Acetaminophen 650 mg 07/14/24 06:35 Acetaminophen 325 Mg Tablet PO Q4H PRN Mild Pain (1-5) Or Fever Sodium Chloride 1,000 mls @ 100 mls/hr 07/13/24 21:20 07/15/24 09:56 Normal Saline Iv IV CONT 100 mls/hr .Q10H SHARITA Administration Pantoprazole Sodium 80 mg/ 500 mls @ 50 mls/hr 07/14/24 09:40 07/15/24 09:57 Sodium Chloride IV CONT 50 mls/hr .Q10H SHARITA Administration Levothyroxine Sodium 75 mcg 07/14/24 06:45 07/15/24 05:47 Levothyroxine Sodium 75 Mcg Tablet PO 75 mcg DAILY@0630 SHARITA Administration Metoprolol Succinate 100 mg 07/14/24 09:00 07/15/24 12:29 Metoprolol Succinate Ext Rel 100 Mg Tabcr PO Not Given QAM SHARITA Ondansetron HCl 4 mg 07/13/24 21:18 Ondansetron Inj 4 Mg/2 Ml Vial IV PUSH Q4H PRN Nausea Labs Labs: Laboratory Results - last 24 hr 07/14/24 07/15/24 07/15/24 18:09 01:48 08:56 Hgb 8.6 L 7.9 L 7.7 L Hct 26.8 L 25.5 L 25.5 L 07/15/24 16:26 Hgb 7.9 L Hct 25.3 L
[2024-07-15] MEDS: amLODIPine BESYLATE 10 MG TABLET PO (20:20)
[2024-07-16] VITALS (17 sets, daily range): BP systolic 106–148; BP diastolic 51–70; PULSE 52–92; RESP 16–18; TEMP 36.1–37.2; O2SAT 93–100
[2024-07-16 04:44] LABS: Hematocrit 29.6 % (37.0-47.0)
[2024-07-16] MEDS: PANTOPRAZOLE 40 MG TABLET PO ×2 (06:09→19:59)
[2024-07-16] MEDS: LEVOTHYROXINE SODIUM 75 MCG TABLET PO (06:09)
[2024-07-16] MEDS: PANTOPRAZOLE SODIUM IV 80 MG in SODIUM CHLORIDE 0.9% IV 500 ML 50 MG IV CONT (06:15)
[2024-07-16] MEDS: SODIUM CHLORIDE 0.9% IV 1,000 ML 100 ML IV CONT ×2 (06:15→17:32)
[2024-07-16] MEDS: METOPROLOL SUCCINATE EXT REL 100 MG TABCR PO (08:57)
[2024-07-16] MEDS: amLODIPine BESYLATE 10 MG TABLET PO (08:58)
[2024-07-16 09:51] LABS: Hematocrit 28.7 % (37.0-47.0); Hemoglobin 8.9 g/dL (12.0-15.0); Immature Platelet Fraction Pct 9.2 % (0.9-11.2); Mean Corpuscular Hemoglobin 31.4 pg (26-34); Mean Corpuscular Volume 101.4 fl (80-100); Mean Platelet Volume 13.4 fl (7.4-10.4); Platelet Count Result 69 k/mm3 (150-375); Red Blood Count 2.83 M/mm3 (4.2-5.4); Red Cell Distribution Width 17.3 % (11.5-14.5); White Blood Count 4.6 K/mm3 (4.5-10.0)
[2024-07-16 10:25] LABS: Alanine Aminotransferase 13 U/L (6-35); Albumin Level 2.9 g/dL (3.5-5.1); Alkaline Phosphatase 57 U/L (38-126); Anion Gap 11 mmol/L (4-12); Aspartate Amino Transferase 31 U/L (14-36); Bilirubin,Total 1.3 mg/dL (0.2-1.3); Blood Urea Nitrogen 10 mg/dL (7-17); Calcium 7.7 mg/dL (8.4-10.2); Carbon Dioxide 16 mmol/L (22-30); Chloride 111 mmol/L (98-107); Estimated CRCL calculation 46 ml/min; Estimated Glomerular Filt Rate > 60; Glucose 76 mg/dL (65-110); Potassium 3.3 mmol/L (3.4-5.0); Sodium 138 mmol/L (137-145)
--- NOTE | 2024-07-16 11:32 | P.CDI_ITS ---
CDI Query Clarification Request Please clarify the status of the patient's anemia, if known. Anemia has been documented, please specify type of anemia if known: * Acute blood loss anemia * Chronic blood loss anemia * Anemia of chronic disease (CKD,neoplasm, other) * Aplastic anemia * Dilutional anemia * Iron Deficiency anemia * Pernicious anemia * Nutritional anemia (e.g., scorbutic anemia) * Other anemia * Unknown/unable to determine The chart reflects the following: Progress Note: A&P Assessment and Plan (1) Acute GI hemorrhage: Code(s): K92.2 - Gastrointestinal hemorrhage, unspecified Status: Acute (2) Hypotension due to blood loss: Code(s): I95.89 - Other hypotension; R58 - Hemorrhage, not elsewhere classified Status: Acute (3) Acute on chronic anemia: Code(s): D64.9 - Anemia, unspecified Status: Acute (4) Uremia: Code(s): N19 - Unspecified kidney failure Status: Acute (5) Thrombocytopenia: Code(s): D69.6 - Thrombocytopenia, unspecified Status: Acute (6) Chronic anticoagulation: Code(s): Z79.01 - 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
--- NOTE | 2024-07-16 12:31 | PC.NURSE ---
This patient, Renata Brown, was transferred to room 344 on 07/16/24 at 1235. Personal belongings sent with patient. Report given to ANDREW Torres. Appropriate documentation sent with patient.
--- NOTE | 2024-07-16 15:37 | PM.IMPN ---
Progress Note: A&P Assessment and Plan (1) Acute GI hemorrhage: Code(s): K92.2 - Gastrointestinal hemorrhage, unspecified Status: Acute (2) Hypotension due to blood loss: Code(s): I95.89 - Other hypotension; R58 - Hemorrhage, not elsewhere classified Status: Acute (3) Acute on chronic anemia: Code(s): D64.9 - Anemia, unspecified Status: Acute (4) Uremia: Code(s): N19 - Unspecified kidney failure Status: Acute (5) Thrombocytopenia: Code(s): D69.6 - Thrombocytopenia, unspecified Status: Acute (6) Chronic anticoagulation: Code(s): Z79.01 - custodial (current) use of anticoagulants Status: Acute (7) Chronic kidney disease, stage 3a: Code(s): N18.31 - Chronic kidney disease, stage 3a Status: Acute Plan GI Bleed Patient underwent EGD which shows acute gastric ulcer and gastritis with bleeding recommended to continue IV pantoprazole and keeping NPO for at least 36 hours in case of rebleeding. H&H Q 8 hours Possible due to an NSAiD intake and Eliquis Received 1 unit PRBC Protonix 80 mg IV Anticipated EGD a.m. Monitor H&H Transfuse if hemoglobin less than 7 GI consulted Will hold diuretic therapy A Fib Hold Eliquis Continue metoprolol succinate 100 mg p.o. q.d. Hypothyroidism Continue levothyroxine 75 mcg Subjective Date/time seen: 07/16/24 15:37 Interval history: Pending H pylori stool antigen test. Hemoglobin is stable. Will discharge tomorrow Review of Systems Review of Systems: 12 systems were reviewed with pertinent positives and negatives per HPI. Except as documented in the HPI, all other systems were reviewed and are negative. Exam Narrative: Weight 52 kg BMI 19.1 Const: Other: No acute distress, well-developed well-nourished, appears stated age HENMT: Other: No oral pharyngeal erythema, edentulous in upper and lower jaw, she reports she does not wear dentures, head is normocephalic atraumatic Eyes: Other: Marked conjunctival pallor, mild scleral icterus left greater than right, evidence of bilateral lens replacements Neck: Other: No JVD, no lymphadenopathy Resp: Other: Clear to auscultation bilaterally, no increased work breathing Cardio: Other: Bradycardic, regular rhythm, no murmur, 2+ bilateral radial pedal pulses GI: Other: Soft, nontender, nondistended, normoactive bowel sounds : Other: Incontinent of urine, pure wick catheter present but not attached to external suction Skin: Other: Marked pallor, non jaundice, bruising to the right lateral posterior rib cage, scattered bruises to the extensor surfaces of arms bilaterally Neuro: Other: Alert oriented to person, month, year and fair recall of recent events, no obvious facial asymmetry, no gross motor deficits noted during the course of casual conversation Extrem: Other: No clubbing, cyanosis trace edema of the feet bilaterally Psych: Other: Pleasant and cooperative, appropriate mood and affect Objective Data Vital Signs Vital Signs: Vital Signs - 24 hr 07/15/24 16:00 07/15/24 16:00 07/15/24 18:00 Temperature 97.7 F Pulse Rate 52 L 52 L 53 L Respiratory Rate 18 Blood Pressure 173/53 H Pulse Oximetry 98 Oxygen Delivery 07/15/24 20:00 07/15/24 20:00 07/15/24 20:00 Temperature 98.7 F Pulse Rate 57 L 56 L Respiratory Rate 18 Blood Pressure 177/51 H Pulse Oximetry 98 Oxygen Delivery Room Air 07/15/24 22:00 07/16/24 00:00 07/16/24 00:00 Temperature 97.8 F Pulse Rate 59 L 65 Respiratory Rate 18 Blood Pressure 147/70 H Pulse Oximetry 100 Oxygen Delivery Room Air 07/16/24 00:00 07/16/24 02:00 07/16/24 03:59 Temperature 98.9 F Pulse Rate 59 L 52 L 61 Respiratory Rate 18 Blood Pressure 124/51 L Pulse Oximetry 100 Oxygen Delivery 07/16/24 04:00 07/16/24 04:00 07/16/24 06:00 Temperature Pulse Rate 54 L 56 L Respiratory Rate Blood Pressure Pulse Oximetry Oxygen Delivery Room Air 07/16/24 08:00 07/16/24 08:00 07/16/24 08:57 Temperature 97 F L Pulse Rate 85 80 65 Respiratory Rate 16 Blood Pressure 148/66 H Pulse Oximetry 93 Oxygen Delivery 07/16/24 10:00 07/16/24 12:00 07/16/24 14:00 Temperature 97.1 F L Pulse Rate 79 82 72 Respiratory Rate 18 Blood Pressure 144/66 H Pulse Oximetry 96 Oxygen Delivery Intake/Output Intake/Output: Intake & Output 07/13/24 07/14/24 07/15/24 07/16/24 23:59 23:59 23:59 23:59 Intake Total 1000 3050.5 3360 2181.7 Output Total 350 1250 2350 Balance 1000 2700.5 2110 -168.3 Meds/Results Medications: Active Medications Generic Name Dose Route Start Last Admin Trade Name Cami PRN Reason Stop Dose Admin Acetaminophen 650 mg 07/14/24 06:35 Acetaminophen 325 Mg Tablet PO Q4H PRN Mild Pain (1-5) Or Fever Amlodipine Besylate 10 mg 07/15/24 21:00 07/16/24 08:58 Amlodipine Besylate 10 Mg Tablet PO 10 mg DAILY SHARITA Administration Sodium Chloride 1,000 mls @ 100 mls/hr 07/13/24 21:20 07/16/24 06:15 Normal Saline Iv IV CONT 100 mls/hr .Q10H SHARITA Administration Levothyroxine Sodium 75 mcg 07/14/24 06:45 07/16/24 06:09 Levothyroxine Sodium 75 Mcg Tablet PO 75 mcg DAILY@0630 SHARITA Administration Metoprolol Succinate 100 mg 07/14/24 09:00 07/16/24 08:57 Metoprolol Succinate Ext Rel 100 Mg Tabcr PO 100 mg QAM SHARITA Administration Ondansetron HCl 4 mg 07/13/24 21:18 Ondansetron Inj 4 Mg/2 Ml Vial IV PUSH Q4H PRN Nausea Pantoprazole Sodium 40 mg 07/16/24 07:00 07/16/24 06:09 Pantoprazole 40 Mg Tablet PO 40 mg Q12HR SHARITA Administration Labs Labs: Laboratory Results - last 24 hr 07/15/24 07/16/24 07/16/24 16:26 04:14 04:18 WBC 4.6 RBC 2.83 L Hgb 7.9 L 8.9 L 9.0 L Hct 25.3 L 28.7 L 29.6 L MCV 101.4 H MCH 31.4 MCHC 31.0 L RDW 17.3 H Plt Count 69 L MPV 13.4 H % Immature Plt Fraction 9.2 Sodium 138 Potassium 3.3 L Chloride 111 H Carbon Dioxide 16 L Anion Gap 11 BUN 10 D Creatinine 0.58 L Estim Creat Clear Calc 46 Estimated GFR > 60 Glucose 76 Calcium 7.7 L Total Bilirubin 1.3 AST 31 ALT 13 Alkaline Phosphatase 57 Total Protein 5.0 L Albumin 2.9 L Quality VTE Prophylaxis VTE prophylaxis: mechanical ordered (SCDs) Hospitalist MIPS Advance Care Plan I have confirmed that the patient's Advanced Care Plan is present, code status is documented, or surrogate decision maker is listed in patient medical record.: Yes Medication Reconciliation I have utilized all available resources to obtain, update and review the patients current medications (includes all prescriptions, OTC, herbals, cannabis, and nutritional supplements).: Yes
--- NOTE | 2024-07-16 19:31 | WPDGIPROGNO ---
Progress Note: A&P Assessment and Plan (1) Bleeding gastric ulcer: Code(s): K25.4 - Chronic or unspecified gastric ulcer with hemorrhage Status: Acute Assessment and Plan: Following a severe peptic ulcer bleed secondary to NSAID use, the patient is now hemodynamically stable and ready for discharge. She will be discharged with pantoprazole 40 mg orally twice daily for at least one month, and a follow-up GI appointment in one month. Crucially, stool H. pylori antigen testing, as previously ordered, must be completed prior to discharge . Subjective Date/time seen: 07/16/24 19:31 Interval history: The patient feels well, did not have stools today, tolerating food, hemodynamically stable. Exam Narrative: Abdomen: Soft, nontender, nondistended, no hepatosplenomegaly. Rest of the exam unchanged. Objective Data Vital Signs Vital Signs: Vital Signs - 24 hr 07/15/24 20:00 07/15/24 20:00 07/15/24 20:00 Temperature 98.7 F Pulse Rate 57 L 56 L Respiratory Rate 18 Blood Pressure 177/51 H Pulse Oximetry 98 Oxygen Delivery Room Air 07/15/24 22:00 07/16/24 00:00 07/16/24 00:00 Temperature 97.8 F Pulse Rate 59 L 65 Respiratory Rate 18 Blood Pressure 147/70 H Pulse Oximetry 100 Oxygen Delivery Room Air 07/16/24 00:00 07/16/24 02:00 07/16/24 03:59 Temperature 98.9 F Pulse Rate 59 L 52 L 61 Respiratory Rate 18 Blood Pressure 124/51 L Pulse Oximetry 100 Oxygen Delivery 07/16/24 04:00 07/16/24 04:00 07/16/24 06:00 Temperature Pulse Rate 54 L 56 L Respiratory Rate Blood Pressure Pulse Oximetry Oxygen Delivery Room Air 07/16/24 08:00 07/16/24 08:00 07/16/24 08:57 Temperature 97 F L Pulse Rate 85 80 65 Respiratory Rate 16 Blood Pressure 148/66 H Pulse Oximetry 93 Oxygen Delivery 07/16/24 10:00 07/16/24 12:00 07/16/24 14:00 Temperature 97.1 F L Pulse Rate 79 82 72 Respiratory Rate 18 Blood Pressure 144/66 H Pulse Oximetry 96 Oxygen Delivery 07/16/24 16:00 Temperature Pulse Rate 92 Respiratory Rate Blood Pressure Pulse Oximetry Oxygen Delivery Intake/Output Intake/Output: Intake & Output 07/13/24 07/14/24 07/15/24 07/16/24 23:59 23:59 23:59 23:59 Intake Total 1000 3050.5 3360 3478.7 Output Total 350 1250 2350 Balance 1000 2700.5 2110 1128.7 Meds/Results Medications: Active Medications Generic Name Dose Route Start Last Admin Trade Name Freq PRN Reason Stop Dose Admin Acetaminophen 650 mg 07/14/24 06:35 Acetaminophen 325 Mg Tablet PO Q4H PRN Mild Pain (1-5) Or Fever Amlodipine Besylate 10 mg 07/15/24 21:00 07/16/24 08:58 Amlodipine Besylate 10 Mg Tablet PO 10 mg DAILY [facility] Administration Levothyroxine Sodium 75 mcg 07/14/24 06:45 07/16/24 06:09 Levothyroxine Sodium 75 Mcg Tablet PO 75 mcg DAILY@0630 SHARITA Administration Metoprolol Succinate 100 mg 07/14/24 09:00 07/16/24 08:57 Metoprolol Succinate Ext Rel 100 Mg Tabcr PO 100 mg QAM SHARITA Administration Ondansetron HCl 4 mg 07/13/24 21:18 Ondansetron Inj 4 Mg/2 Ml Vial IV PUSH Q4H PRN Nausea Pantoprazole Sodium 40 mg 07/16/24 07:00 07/16/24 06:09 Pantoprazole 40 Mg Tablet PO 40 mg Q12HR SHARITA Administration Labs Labs: Laboratory Results - last 24 hr 07/16/24 07/16/24 04:14 04:18 WBC 4.6 RBC 2.83 L Hgb 8.9 L 9.0 L Hct 28.7 L 29.6 L MCV 101.4 H MCH 31.4 MCHC 31.0 L RDW 17.3 H Plt Count 69 L MPV 13.4 H % Immature Plt Fraction 9.2 Sodium 138 Potassium 3.3 L Chloride 111 H Carbon Dioxide 16 L Anion Gap 11 BUN 10 D Creatinine 0.58 L Estim Creat Clear Calc 46 Estimated GFR > 60 Glucose 76 Calcium 7.7 L Total Bilirubin 1.3 AST 31 ALT 13 Alkaline Phosphatase 57 Total Protein 5.0 L Albumin 2.9 L
[2024-07-17] VITALS (8 sets, daily range): BP systolic 108–110; BP diastolic 53–61; PULSE 62–82; RESP 18; TEMP 36.4–36.5; O2SAT 95–96
[2024-07-17] MEDS: LEVOTHYROXINE SODIUM 75 MCG TABLET PO (05:28)
[2024-07-17] MEDS: amLODIPine BESYLATE 10 MG TABLET PO (09:44)
[2024-07-17] MEDS: PANTOPRAZOLE 40 MG TABLET PO (09:44)
[2024-07-17] MEDS: POTASSIUM CHLORIDE 20 MEQ ER TABLET 60 MEQ PO (09:45)
[2024-07-17] MEDS: METOPROLOL SUCCINATE EXT REL 100 MG TABCR PO (09:45)
--- NOTE | 2024-07-17 16:36 | P.DS_ITS ---
DS: Admitting Diagnosis Discharge Date 07/17/2024 Admitting Diagnosis GI bleed DS: Discharge Diagnosis Discharge Diagnosis (1) Acute GI hemorrhage: Code(s): K92.2 - Gastrointestinal hemorrhage, unspecified Status: Acute (2) Hypotension due to blood loss: Code(s): I95.89 - Other hypotension; R58 - Hemorrhage, not elsewhere classified Status: Acute (3) Acute on chronic anemia: Code(s): D64.9 - Anemia, unspecified Status: Acute (4) Uremia: Code(s): N19 - Unspecified kidney failure Status: Acute (5) Thrombocytopenia: Code(s): D69.6 - Thrombocytopenia, unspecified Status: Acute (6) Chronic anticoagulation: Code(s): Z79.01 - retirement (current) use of anticoagulants Status: Acute (7) Chronic kidney disease, stage 3a: Code(s): N18.31 - Chronic kidney disease, stage 3a Status: Acute DS: Summary Hospital Course Hospital Course: 89-year-old female with past medical history of mild dementia, paroxysmal AFib on chronic anticoagulation with Eliquis, chronic thrombocytopenia, hypothyroidism, essential hypertension, urge urinary incontinence and chronic kidney disease stage 3 who presented to the ER due to rectal bleeding. Patient reported 4 episodes of maroon stools. She had recently had fall and had some rib pain and was started on Aleve by family 2 weeks ago. She had been having some epigastric pain and had abdominal ultrasound on 07/11/2024 that demonstrated chronic renal atrophy and status post cholecystectomy. Patient also reported shortness of breath and feeling lightheaded. Rectal exam was performed by ER provider which demonstrated some brown stool but mostly reddish maroon blood. Patient was only oriented x2 for nursing but was oriented to person place and time at time of my evaluation but was not the best historian regarding recent events. She did state that she had 1 large melenic stool at home. She reported that she had fall a couple weeks ago and was having shoulder pain and rib pain for which she was taking Aleve. She reports that her bruising on her rib to the gotten better. She actually denied having any epigastric pain at the time of my evaluation. She denies any lower abdominal pain. She has not had any further bloody stools since admission but is currently NPO. She denies a prior history of GI bleed. She is incontinent of urine and her depends is saturated with urine. She has a pure wick catheter placed but was not connected to suction. She denies any chest pain beyond the rib pain she had with her fall. She denies current shortness of breath. She does take Lasix every other day for lower extremity swelling. She does not think her legs her any more swollen than usual. I assumed care on 07/14. Treated for following conditions: GI Bleed Patient underwent EGD which shows acute gastric ulcer and gastritis with bleeding recommended to continue IV pantoprazole and advancing diet. Possible due to an NSAiD intake and Eliquis Received 1 unit PRBC Pantoprazole 40 mg PO BID Monitor H&H Transfuse if hemoglobin less than 7 GI consulted Will cont diuretic therapy H.Pylori stool ag is negative. A Fib GI agrees to continue Eliquis Continue metoprolol succinate 100 mg p.o. q.d. Hypothyroidism Continue levothyroxine 75 mcg Status at Discharge Cognitive/behavioral status at discharge: Stable Time Spent with Patient Time attestation: Total time spent providing and/or coordinating discharge services:45 minutes Exam Narrative: Weight 52 kg BMI 19.1 Const: Other: No acute distress, well-developed well-nourished, appears stated age HENMT: Other: No oral pharyngeal erythema, edentulous in upper and lower jaw, she reports she does not wear dentures, head is normocephalic atraumatic Eyes: Other: Marked conjunctival pallor, mild scleral icterus left greater than right, evidence of bilateral lens replacements Neck: Other: No JVD, no lymphadenopathy Resp: Other: Clear to auscultation bilaterally, no increased work breathing Cardio: Other: Bradycardic, regular rhythm, no murmur, 2+ bilateral radial pedal pulses GI: Other: Soft, nontender, nondistended, normoactive bowel sounds : Other: Incontinent of urine, pure wick catheter present but not attached to external suction Skin: Other: Marked pallor, non jaundice, bruising to the right lateral posterior rib cage, scattered bruises to the extensor surfaces of arms bilaterally Neuro: Other: Alert oriented to person, month, year and fair recall of recent events, no obvious facial asymmetry, no gross motor deficits noted during the course of casual conversation Extrem: Other: No clubbing, cyanosis trace edema of the feet bilaterally Psych: Other: Pleasant and cooperative, appropriate mood and affect DS: Data Data Completed and Pending Labs on day of discharge: Labs from last 24 hours 07/13/24 19:36 Crossmatch See Detail Discharge Plan Discharge Attending physician on discharge: Nuno Hayes Discharging Clinician: Nuno Hayes Anticipated Discharge Date/Time: 07/17/24 16:43 Activity: as tolerated Diet: regular Discharge Instructions: Patient needs close follow up Gastroenterology. Please continue Pantoprazole until Gastroenterology instructs to stop. Patient has chronic platelet deficiency and follows up with . Please follow up with cardiology and discuss about Eliquis continuation. Patient needs to seek immediate medica care if bleeding reoccurs. Signs of anemia/bleeding including shortness of breath, chest pain or palpitations. Gastroenterology agrees to continue Eliquis. No spicy food. Check blood pressure 1 to 2 times a day. Record and bring into your doctor for review. Call your doctor if your blood pressure is greater than 180/110 or less than 90/45. Walk with cane or other assist device. Take precautions to avoid falls. Rise slowly from a lying or sitting position. Pause before standing or walking. Contact your doctor or call 911 and come to the Emergency Room if you have any type of trauma, lightheadedness with standing or other worrisome symptoms. Avoid NSAIDs (ibuprofen, naproxen, Aleve). Tylenol is safe to take. Follow-up with your primary care provider in 1-2 weeks. Please call for appointment. Follow-up with Cardiology in 2-4 weeks. Please call for an appointment. Thank you for using [facility] for your health care needs. Patient Instructions: Apixaban (By mouth) Patient Language: Setswana Discharge Medications: New amlodipine 10 mg Tablet 10 mg PO DAILY Qty: 30 0RF pantoprazole 40 mg Tablet,Delayed Release (Dr/Ec) 40 mg PO Q12HR Qty: 30 0RF Continued acetaminophen 325 mg Tablet 650 mg PO Q4H PRN (Reason: Mild Pain (1-5) Or Fever) Qty: 30 0RF oxybutynin chloride 5 mg Tablet 5 mg PO BID Qty: 60 0RF meclizine 25 mg Tablet 25 mg PO BID cyanocobalamin (vitamin B-12) 2,500 mcg Tablet 1,000 mcg PO DAILY Vitamin D3 1,000 unit PO DAILY furosemide [Lasix] 20 mg tablet 20 mg PO EVERY OTHER DAY PRN (Reason: edema or weight gain) donepezil 5 mg tablet 5 mg PO DAILY metoprolol succinate [Toprol XL] 25 mg Tablet Extended Release 24 Hr 100 mg PO QAM levothyroxine 75 mcg tablet 75 mcg PO DAILY simvastatin 20 mg tablet 20 mg PO DAILY Eliquis 2.5 mg Tablet 2.5 mg PO Q12HR Qty: 60 1RF Date of admission: 07/15/24 09:59 Primary Care Provider: Dominick,Adarsh Fenton Admitting Provider: Zeinab Dominguez Attending physician on admission: Zeinab Dominguez Condition: Stable
== END 2024-07-17 17:25 | disposition home or self-care (01) | DRG 378 ==
LOC: ANHED 21:21 → ANHIMU 07-14 05:25 → ANH3MED 07-17 16:47 → ANHIMU 07-20 14:30
PROVIDERS: Emergency Medicine; Internal Medicine Gastroenterology; Admitting Provider Internal Medicine; Emergency Provider Emergency Medicine; PCP Internal Medicine; Visit Provider General Practice
PROC: 0DJ08ZZ Inspection of Upper Intestinal Tract, Via Natural or Artificial Opening Endoscopic (ICD-10-PCS; principal; 2024-07-14 15:15)
DX: K25.0 Acute gastric ulcer with hemorrhage (principal); D62 Acute posthemorrhagic anemia; I13.0 Hypertensive heart and chronic kidney disease with heart failure and stage 1 through stage 4 chronic kidney disease, or unspecified chronic kidney disease; I42.9 Cardiomyopathy, unspecified; T39.395A Adverse effect of other nonsteroidal anti-inflammatory drugs [NSAID], initial encounter; K29.61 Other gastritis with bleeding; I50.9 Heart failure, unspecified; I95.89 Other hypotension; I48.0 Paroxysmal atrial fibrillation; N18.30 Chronic kidney disease, stage 3 unspecified; D64.9 Anemia, unspecified; D69.6 Thrombocytopenia, unspecified; E78.5 Hyperlipidemia, unspecified; E03.9 Hypothyroidism, unspecified; F03.A0 Unspecified dementia, mild, without behavioral disturbance, psychotic disturbance, mood disturbance, and anxiety; Z79.01 Long term (current) use of anticoagulants
CPT/HCPCS: 36415; 36430; 80048; 80053; 85014; 85018; 85025; 85027; 85055; 85610; 85730; 86850; 86900; 86901; 86923; 87338; 96361; 96374; 96375; 97110; 97116; 97162; 97165; 99285; A9270; G0378; J0171; J2003; J2470; J2704; J7030; J7040; J7050; J7120; P9016

== ENCOUNTER 2024-09-23 16:39 | Outpatient (CLI) | payer MEDICARE, SELFPAY ==
--- NOTE | ~2024-09-23 | XR_ITS ---
XR shoulder RT min 2V Ordering provider: Adarsh Tan, History: . Pain in right hip and injury to right shoulder . Comparison: June 25, 2024 FINDINGS: BONES: No acute fracture or dislocation. Old healed fractures of the right fifth and sixth ribs. JOINT SPACES: The acromioclavicular joint is normal. The glenohumeral joint is normal. SOFT TISSUES: Highly suggestive calcification of the supraspinatous tendon is seen with degenerative changes in the area of the insertion.. IMPRESSION: No acute osseous abnormality right shoulder. Highly suggestive calcific tendinosis. Reviewed, dictated and finalized at location A.
--- NOTE | ~2024-09-23 | XR_ITS ---
XR hip RT min 2V Ordering provider: Adarsh Tan, History: . Pain in right hip and injury to right shoulder . Comparison: None. FINDINGS: BONES: No acute fracture or dislocation. Osteopenia of the bones. 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 SACROILIAC JOINT SPACES/LUMBAR SPINE: The sacroiliac joint spaces are normal. Mild degenerative mcginnis es of the visualized lower lumbar spine. PUBIC SYMPHYSIS: Normal. SOFT TISSUES: Normal. IMPRESSION: No acute osseous abnormality pelvis and right hip. 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 Reviewed, dictated and finalized at location A.
--- OUTSIDE RECORDS SUMMARY | 2024-09-23 16:43 | XMS_ITS | CONTINUITY OF CARE DOCUMENT ---
Author Name [email or web address] Address Unknown Organization [facility] Address [address] [place] [address] Phone [phone] Care Team Providers Care Glaze Handler Name Role Phone Mehul MCKAY, Charly Unavailable [phone] CASANDRA MCKAY, YOLANDA Unavailable YOLANDA GUAJARDO MD Unavailable [phone] PROBLEMS Condition Status Date Provider Notes Chest pain active Charly Carver MD INSURANCE PROVIDERS Payer name Policy type / Coverage type [place] red libertarian ID [id number] [place] MEDICARE Medicare [id number] HISTORY OF PROCEDURES Procedure Date Procedure Name Provider Procedure Notes S tatus Cardiolite, 2 units Charly Carver MD completed SPECT Images Charly Carver MD complet ed Stress EKG Charly Carver MD completed Holter, 24 or 48 Charly Carver MD com pleted
--- OUTSIDE RECORDS SUMMARY | 2024-09-23 16:43 | XMS_ITS | Referral Summary ---
Author Organization [facility] [place] [address] [facility] [address] Address [address] [place] [address] Care Team Providers Care Agricultural Equipment Design Engineer Name Role Phone Adarsh Tan MD Primary Care Provider Encounters Date Type Department Care Team Description 07/20/2024 Telephone [facility] Medical [facility] Cardiology [address] [place] [address] Homar Greenwood MD 07/17/2024 Telephone [facility] Cardiology [address] [place] [address] Homar Greenwood MD from Last 3 Months Allergies Active Allergy [...] 1 tablet (75 mcg total) by mouth flight attendant/inflight manager before breakfast Active metoprolol XL (TOPROL-XL) 100 [...] Comments Blood Pressure 130/70 05/28/2024 11:32 AM PRINTED CIRCUIT BOARDS STRIPPER ETCHER Pulse 72 05/28/2024 11:32 AM PRINTED CIRCUIT BOARDS STRIPPER ETCHER Temperature - - Respiratory Rate - - Oxygen Saturation 96% 05/28/2024 11:32 AM PRINTED CIRCUIT BOARDS STRIPPER ETCHER Inhaled Oxygen Concentration - - Weight 52.7 kg (116 lb 1.6 oz) 05/28/2024 11:32 AM PRINTED CIRCUIT BOARDS STRIPPER ETCHER Height 165.1 cm (5' 5) 05/28/2024 11:32 AM PRINTED CIRCUIT BOARDS STRIPPER ETCHER Body Mass Index 19.32 05/28/2024 11:32 AM PRINTED CIRCUIT BOARDS STRIPPER ETCHER Plan of Treatment Not on file Insurance MEDICARE ADVANTAGE [facility] MEDIC[facility] Address: [address] [phone] [facility] MED[facility] Address: [address] [address] [place] [address] Care Teams Agricultural Equipment Design Engineer Relationship Specialty Start Date End Date Adarsh Tan MD [address] [place] [address] PCP - General Internal Medicine 10/12/20
--- OUTSIDE RECORDS SUMMARY | 2024-09-23 16:43 | XMS_ITS | Clinical Summary ---
Author Organization [facility] [place] [address] Address [address] [place] [address] Care Team Providers Care Stock Patcher Name Role Phone Adarsh Tan MD Primary [...] 1 tablet (75 mcg total) by mouth plc engineer before breakfast Active metoprolol XL (TOPROL-XL) 100 [...] Type Department Care Team Description 07/20/2024 Telephone [facility] Medical [facility] Cardiology [address] [facility] [address] [place] [phone] Homar Greenwood MD 07/17/2024 Telephone [facility] Cardiology [address] [place] [phone] Homar Greenwood MD from Last 3 Months Surgical History Surgery Date Site/Laterality Comments GALLBLADDER SURGERY 1969' HYSTERECTOMY 04/22/1971 - 04/21/1972 HIP FRACTURE SURGERY [...] Comments Blood Pressure 130/70 05/28/2024 11:32 AM MERCHANDISING INTERN Pulse 72 05/28/2024 11:32 AM MERCHANDISING INTERN Temperature - - Respiratory Rate - - Oxygen Saturation 96% 05/28/2024 11:32 AM MERCHANDISING INTERN Inhaled Oxygen Concentration - - Weight 52.7 kg (116 lb 1.6 oz) 05/28/2024 11:32 AM MERCHANDISING INTERN Height 165.1 cm (5' 5) 05/28/2024 11:32 AM MERCHANDISING INTERN Body Mass Index 19.32 05/28/2024 11:32 AM MERCHANDISING INTERN Plan of Treatment Health Maintenance Due Date Last Done Comments Depression Screening 1935 Fall Risk Assessment 1935 DTaP/Tdap/Td Vaccine (1 - Tdap) 1946 Hepatitis B Screening 1953 Zoster Vaccine (1 of 2) 1985 Well Visit 65+ 2000 Covid-19 Vaccine (3 - 2023-2 5 season) 2023 07/22/2020, 07/01/2020 Influenza Vaccine (Season Ended) 2024 01/15/2022, 02/01/2021, 02/01/2021, Additional history exists Pneumococcal vaccine 65+ Completed 11/19/2018, 12/2014 Insurance [facility] MEDICARE ADVANTAGE [facility] Address: [facility] [address] [place] [address] [facility] MEDICARE ADVANTAGE Care Teams Stock Patcher Relationship Specialty Start Date End Date Adarsh Tan MD [address] [facility] [address] [place] [address] PCP - General Internal Medicine 10/12/20
--- OUTSIDE RECORDS SUMMARY | 2024-09-23 16:44 | XMS_ITS | Clinical Summary ---
Author Organization [facility] Paula andrew [facility] Address [address] [place] [address] Care Team Providers Care Animal Services Officer Name Role Phone Unavailable Primary Care Provider [...] Encounters Date Type Department Care Team Description 09/10/2024 External Device Data [facility] ABSTRACTION Provider, Abstract 09/09/2024 External Device Data [facility] ABSTRACTION Provider, Abstract 09/08/2024 External Device Data [facility] ABSTRACTION Provider, Abstract 07/22/2024 4:00 PM CDT Telephone Check Up [facility] Oncology and Hematology - [address] [place] [address] Antwan Irvin MD Chronic anemia (Primary Dx) 07/08/2024 External Device Data [facility] ABSTRACTION Provider, Abstract 07/08/2024 External Device Data [facility] ABSTRACTION Provider, Abstract 07/08/2024 Orders Only [facility] Oncology and Hematology [address] [place] [address] Antwan Irvin MD 07/07/2024 External Device Data [facility] ABSTRACTION Provider, Abstract 07/02/2024 Orders Only [facility] Oncology and Hematology [address] [place] [address] Antwan Irvin MD 07/01/2024 3:00 PM CDT Office Visit [facility] Oncology and Hematology [facility] [address] [place] [address] Antwan Irvin MD Chronic anemia (Primary Dx); Other secondary thrombocytopenia 07/01/2024 Abstract [facility] Oncology [facility] Hematology [facility] [address] [place] [address] Antwan Irvin MD from Last 3 Months [...] on file Legal Sex Female 10:37 AM DIRECTOR TRADE Gender Identity Not on file Sexual Orientation [...] P M CDT Height 165.1 cm (5' 5) 07/01/2024 3:09 PM CDT Body Mass Index 19.24 07/01/2024 3:09 PM CDT Plan of Treatment Upcoming Encounters Date Type Department Care Team (Late st Contact Info) Description 10/15/2024 2:30 PM CDT Office Visit [facility] Oncology and Hematology - [place] [address] [facility] [address] [place] [address] Antwan Irvin MD [address] [facility] [address] [place] [address] Health Maintenance Due Date Last Done Comments DTAP/TDAP/TD VACCINES (1 - Tdap) 1954 ZOSTER VACCINE (1 of 2) 1985 OSTEOPOROSIS SCREENING 2000 RSV VACCINE (60+ or ) (1 - 1-dose 75+ series) 2010 INFLUENZA VACCINE Completed 04/01/2024, , 02/01/2021, Additional history exists PNEUMOCOCCAL VACCINE 50+ YEARS Completed 1 06/02/2023, 11/19/2018, 05/31/2014 Procedures Procedure Name Priority Date/Time Associated Diagnosis [...] Resu lt from Last 3 Months Insurance [facility] [id number]
--- OUTSIDE RECORDS SUMMARY | 2024-09-23 16:44 | XMS_ITS | Data Portability ---
Author Organization [facility], Main Office Address [address] [place] [address] Assessment No assessment recorded. Plan of Treatment Reminders Order Date Submit Date Provider Last Modified By Organization Details Last Modified Time Details Appointments None recorded . Lab lipid panel, serum 024 04/01/20 24 [facility], [address] [place], [address], 4 19:58:48 CMP, serum or plasma 024 04/01/20 24 [facility], [address] [place], [address], 4 19:58:50 TSH, serum or plasma 024 04/01/20 24 [facility], [address] [place], [address], 4 19:58:54 T4, free, serum 024 04/01/20 24 [facility], [address] [place], [address], 4 19:58:53 CBC w/ auto diff 024 04/01/20 24 [facility], [address] [place], [address], 4 19:58:51 lipid panel, serum 024 11/27/19 24 [facility], [address] [place], [address], 4 16:32:30 CMP, serum or plasma 024 11/27/19 24 [facility], [address] [place], [address], 4 16:32:25 T4, free, serum 024 11/27/19 24 [facility], [address] [place], [address], 4 16:31:03 TSH, serum or plasma 024 11/27/19 24 [facility], [address] [place], [address], 4 16:45:53 CBC w/ auto diff 024 11/27/19 24 [facility], [address] [place], [address], 4 13:54:53 BMP, serum or plasma 024 11/27/[email or web address] [place] [address] Lab, [address] [place], [address], 4 17:15:58 Referral None recorded . Procedures None recorded . Surgeries None recorded . Imaging None recorded . Medication Orders None recorded . Patient TargetsNo targets recorded. Patient Instructions Encounter Date Encounter Id Patient Instructions Last Modified By Organization Details Last Modified Time 11/27/2023 [id number] Follow-up for history of congestive heart failure, [...] with voice recognition software. Occasional wrong-word or buxzq-r-unsn substitutions may have occurred due to the inherent limitations of voice recognition software. Read the chart carefully and recognize, using context, where substitutions have occurred. [email or web address] Not available 11/27/2023 11:41:50 01/15/2024 [id number] dementia rating scale-2* [email or web address] Not available 01/15/2024 11:30:41 alcohol misuse* Not available 01/15/2024 11:30:41 depression screening* [email or web address] Not available 01/15/2024 11:30:41 Timed Up and Go test (TUG)* [email or web address] Not available 01/15/2024 11:30:41 multi-dimensiona l health assessment questionnaire* [email or web address] Not available 01/15/2024 11:30:40 Personalized a lt Plan and Screening Recommendations Advance Directives - [...] Physical activity: Need more exercise/physical activity Nutrition: Average Refer to attached handout Heart-Healthy Diet: After Your Visit Refer to attached handout DASH Diet: After Your Visit Recommend consultation with a nurse companion Eat heart healthy diet Fall Risk (screened today): Intermediate Recommend regular use of cane or walker Vaccines Pneumococcal: No further needed Influenza: Your next one in the fall of this year Chronic Disease Risks Stroke: Intermediate Risk Active diagnosis, Continue current treatment plan Heart Attack: Intermediate Risk Active diagnosis, Continue current treatment plan Clogging of the Arteries: Intermediate Risk Active diagnosis, Continue current treatment plan Diabetes: Low Risk I have no recommendations Secondary Prevention/Interven tion (detects treatable diseases before they may cause symptoms, disability, or ) Breast Cancer Screening with mammogram: No screening necessary Cervical/Uterine/Ov ti Cancer Screening: No screening necessary Osteoporosis Screening: No screening necessary Date Screening Last Performed: Colon Cancer Screening: Colonoscopy No screening necessary Date Screening Last Performed: __2013__ Eye Disease Screening: Ordered Recommended today Recommended today, but you have declined No Eye exam necessary No Eye exam necessary goes yearly Dementia Risk: Low I have no recommendations Depression Screening: Negative Recommend additional evaluation and/or treatment as noted above Recommend follow appointment to further evaluate Recommend Behavioral Health referral Active diagnosis, Continue current treatment plan I have no recommendations Not available 01/15/2024 11:12:41 Medicare wellnes s [...] a day Keep Appointment: Sat 10:30 AM [place] Portions of the record may have been created with voice recognition software. Occasional wrong-word or rncvt-h-klyl substitutions may have occurred due to the inherent limitations of voice recognition software. Read the chart carefully and recognize, using context, where substitutions have occurred. [email or web address] Not available 01/15/2024 11:30:23 04/01/2024 [id number] . Follow-up paroxysmal atrial fibrillation, hyperlipidemia, hypothyroidism [...] with voice recognition software. Occasional wrong-word or [id number]-v-pnqg substitutions may have occurred due to the inherent limitations of voice recognition software. Read the chart carefully and recognize, using context, where substitutions have occurred. Created: Adarsh Tan M.D. 04.01.2024 10:58 AM [email or web address] Not available 04/01/2024 11:58:56 08/06/2024 [id number] Follow-up essent ial hypertension, persistent atrial fibrillation, hyperlipidemia, hypothyroidism and dementia. Plan at this time is to stop the amlodipine. Does have 2+ pitting edema lower extremities. Will reduce the Lasix back to 20 mg once daily. Swelling is likely secondary to the David administration of the amlodipine. Will have the patient have blood pressure checked in one week. Long as it remains down will not add anything. If does go back up will consider adding a Arb or CRYSTAL inhibitor. Check back in two months Follow Up: 2 Months Approximate Date: 10/05/2024 Portions of record are template driven. When necessary additional context will be provided. Additionally some portions have been created with voice recognition software. Occasional wrong-word or cciez-x-tniw substitutions may have occurred due to the inherent limitations of voice recognition software. Read the chart carefully and recognize, using context, where substitutions may have occurred. Created: Adarsh Tan M.D. 08.06.2024 11:12 AM [email or web address] Not available 08/06/2024 12:12:37 Reason for Referral None Reported. Results Created Date Observation Date Name Description Value Unit Range Abnormal Flag Note LastModifiedBy Organization Detail LastModifiedTime 11/27/19 24 11/27/2023 CBC/C OMPLE TE BLD COUNT W/DIF F white blood cells 4.2 x10'3 /uL 4.2-10 .8 Not Available [facility] (Lab) [address] [place], [address], 11/27/2023 13:54:53 11/27/19 24 11/27/2023 CBC/C OMPLE TE BLD COUNT W/DIF F red blood cells 4.16 x10'6 /uL 3.80-5 .20 Not Available [facility] (Lab) [address] [place], [address], 11/27/2023 13:54:53 11/27/19 24 11/27/2023 CBC/C OMPLE TE BLD COUNT W/DIF F hemoglobin 12.7 g/dL 12.0-1 5.6 Not Available [facility] (Lab) [address] [place], [address], 11/27/2023 13:54:53 11/27/19 24 11/27/2023 CBC/C OMPLE TE BLD COUNT W/DIF F hematocrit 39.8 % 35.7-4 5.7 Not Available [facility] (Lab) [address] [place], [address], 11/27/2023 13:54:53 11/27/19 24 11/27/2023 CBC/C OMPLE TE BLD COUNT W/DIF F mean red cell volume 95.7 fL 82.0-9 9.0 Not Available [facility] (Lab) [address] [place], [address], 11/27/2023 13:54:53 11/27/19 24 11/27/2023 CBC/C OMPLE TE BLD COUNT W/DIF F mean red cell hemoglobin 30.5 pg 27.0-3 3.0 Not Available [facility] (Lab) [address] [place], [address], 11/27/2023 13:54:53 11/27/19 24 11/27/2023 CBC/C OMPLE TE BLD COUNT W/DIF F mean RBC HGB concentratio n 31.9 g/dL 31.0-3 6.0 Not Available [facility] (Lab) [address] [place], [address], 11/27/2023 13:54:53 11/27/19 24 11/27/2023 CBC/C OMPLE TE BLD COUNT W/DIF F red cell distribution width 13.5 % 11.8-1 5.5 Not Available [facility] (Lab) [address] [place], [address], 11/27/2023 13:54:53 11/27/19 24 11/27/2023 CBC/C OMPLE TE BLD COUNT W/DIF F platelets 109 x10'3 /uL 150-40 0 low Not Available [facility] (Lab) [address] [place], [address], 11/27/2023 13:54:53 11/27/19 24 11/27/2023 CBC/C OMPLE TE BLD COUNT W/DIF F mean platelet volume 13.3 fL 9.0-12 .4 high Not Available [facility] (Lab) [address] [place], [address], 11/27/2023 13:54:53 11/27/19 24 11/27/2023 CBC/C OMPLE TE BLD COUNT W/DIF F neutrophils 55.1 % 39.0-7 2.0 Not Available [facility] (Lab) [address] [place], [address], 11/27/2023 13:54:53 11/27/19 24 11/27/2023 CBC/C OMPLE TE BLD COUNT W/DIF F lymphocytes 29.8 % 16.0-4 7.0 Not Available [facility] (Lab) [address] [place], [address], 11/27/2023 13:54:53 11/27/19 24 11/27/2023 CBC/C OMPLE TE BLD COUNT W/DIF F monocytes 10.5 % 5.0-12 .0 Not Available [facility] (Lab) [address] [place], [address], 11/27/2023 13:54:53 11/27/19 24 11/27/2023 CBC/C OMPLE TE BLD COUNT W/DIF F eosinophils 3.6 % 1.0-7. 0 Not Available [facility] (Lab) [address] [place], [address], 11/27/2023 13:54:53 11/27/19 24 11/27/2023 CBC/C OMPLE TE BLD COUNT W/DIF F basophils 0.5 % 0.0-2. 0 Not Available [facility] (Lab) [address] [place], [address], 11/27/2023 13:54:53 11/27/19 24 11/27/2023 CBC/C OMPLE TE BLD COUNT W/DIF F immature granulocytes 0.5 % 0.00-0 .50 Not Available [facility] (Lab) [address] [place], [address], 11/27/2023 13:54:53 11/27/19 24 11/27/2023 CBC/C OMPLE TE BLD COUNT W/DIF F neutrophils, absolute count 2.31 x10'3 /uL 1.5-8. 0 Not Available [facility] (Lab) [address] [place], [address], 11/27/2023 13:54:53 11/27/19 24 11/27/2023 CBC/C OMPLE TE BLD COUNT W/DIF F lymphocytes, absolute count 1.25 x10'3 /uL 1.07-3 .43 Not Available [facility] (Lab) [address] [place], [address], 11/27/2023 13:54:53 11/27/19 24 11/27/2023 CBC/C OMPLE TE BLD COUNT W/DIF F monocytes, absolute count 0.44 x10'3 /uL 0.29-0 .99 Not Available [facility] (Lab) [address] [place], [address], 11/27/2023 13:54:53 11/27/19 24 11/27/2023 CBC/C OMPLE TE BLD COUNT W/DIF F eosinophils, absolute count 0.15 x10'3 /uL 0.02-0 .53 Not Available [facility] (Lab) [address] [place], [address], 11/27/2023 13:54:53 11/27/19 24 11/27/2023 CBC/C OMPLE TE BLD COUNT W/DIF F basophils, absolute count 0.02 x10'3 /uL 0.01-0 .08 Not Available [facility] (Lab) [address] [place], [address], 11/27/2023 13:54:53 11/27/19 24 11/27/2023 CBC/C OMPLE TE BLD COUNT W/DIF F immature granulocytes ,absolute 0.02 x10'3 /uL 0.00-0 .05 Not Available [facility] (Lab) [address] [place], [address], 11/27/2023 13:54:53 11/27/19 24 11/27/2023 CBC/C OMPLE TE BLD COUNT W/DIF F nucleated red blood cells 0.0 % -0 Not Available [facility] (Lab) [address] [place], [address], 11/27/2023 13:54:53 11/27/19 24 11/27/2023 CBC/C OMPLE TE BLD COUNT W/DIF F NRBC# 0.00 x10'3 /uL Not Available [facility] (Lab) [address] [place], [address], 11/27/2023 13:54:53 11/27/19 24 11/27/2023 T4 FREE free T4 1.74 NG/dL 0.78-2 .19 Not Available [facility] (Lab) [address] [place], [address], 11/27/2023 16:34:17 11/27/19 24 11/27/2023 COMPR EHENS ITALO METAB OLIC PANEL sodium 138 mmol/ L 137-14 5 Not Available [facility] (Lab) [address] [place], [address], 11/27/2023 16:32:25 11/27/19 24 11/27/2023 COMPR EHENS ITALO METAB OLIC PANEL potassium 4.1 mmol/ L 3.5-5. 1 Not Available [facility] (Lab) [address] [place], [address], 11/27/2023 16:32:25 11/27/19 24 11/27/2023 COMPR EHENS ITALO METAB OLIC PANEL chloride 112 mmol/ L 98-107 high Not Available [facility] (Lab) [address] [place], [address], 11/27/2023 16:32:25 11/27/19 24 11/27/2023 COMPR EHENS ITALO METAB OLIC PANEL carbon dioxide 25 mmol/ L 22-30 Not Available [facility] (Lab) [address] [place], [address], 11/27/2023 16:32:25 11/27/19 24 11/27/2023 COMPR EHENS ITALO METAB OLIC PANEL anion gap 5.1 mmol/ L 14-22 low Not Available [facility] (Lab) [address] [place], [address], 11/27/2023 16:32:25 11/27/19 24 11/27/2023 COMPR EHENS ITALO METAB OLIC PANEL glucose 102 mg/dL 70-99 high Not Available [facility] (Lab) [address] [place], [address], 11/27/2023 16:32:25 11/27/19 24 11/27/2023 COMPR EHENS ITALO METAB OLIC PANEL BUN 20 mg/dL 8-19 high Not Available [facility] (Lab) [address] [place], [address], 11/27/2023 16:32:25 11/27/19 24 11/27/2023 COMPR EHENS ITALO METAB OLIC PANEL creatinine 0.94 mg/dL 0.66-1 .25 Not Available [facility] (Lab) [address] [place], [address], 11/27/2023 16:32:25 11/27/19 24 11/27/2023 COMPR EHENS ITALO METAB OLIC PANEL GFR 56 Refer ence Range : Stanley ge GFR Healt hy Adult : >60 [...] calcu lator is avail able on the [facility] websi te: https ://raulito wakefield.brayan rasmussen.o rg/pr ofess ional s/kdo qi/gf r_cal culat or Not Available [facility] (Lab) [address] [place], [address], 11/27/2023 16:32:25 11/27/19 24 11/27/2023 COMPR EHENS ITALO METAB OLIC PANEL alkaline phosphatase 89 U/L 38-126 Not Available [facility] (Lab) [address] [place], [address], 11/27/2023 16:32:25 11/27/19 24 11/27/2023 COMPR EHENS ITALO METAB OLIC PANEL alanine aminotransfe rase 12 U/L 0-35 Not Available [facility] (Lab) [address] [place], [address], 11/27/2023 16:32:25 11/27/19 24 11/27/2023 COMPR EHENS ITALO METAB OLIC PANEL aspartate aminotransfe rase 24 U/L 15-37 Not Available [facility] (Lab) [address] [place], [address], 11/27/2023 16:32:25 11/27/19 24 11/27/2023 COMPR EHENS ITALO METAB OLIC PANEL bilirubin, total 1.60 mg/dL 0.20-1 .30 high Not Available [facility] (Lab) [address] [place], [address], 11/27/2023 16:32:25 11/27/19 24 11/27/2023 COMPR EHENS ITALO METAB OLIC PANEL calcium 9.1 mg/dL 8.4-10 .2 Not Available [facility] (Lab) [address] [place], [address], 11/27/2023 16:32:25 11/27/19 24 11/27/2023 COMPR EHENS ITALO METAB OLIC PANEL total protein 6.1 g/dL 6.3-8. 2 low Not Available [facility] (Lab) [address] [place], [address], 11/27/2023 16:32:25 11/27/19 24 11/27/2023 COMPR EHENS ITALO METAB OLIC PANEL albumin 3.9 g/dL 3.0-4. 4 Not Available [facility] (Lab) [address] [place], [address], 11/27/2023 16:32:25 11/27/19 24 11/27/2023 COMPR EHENS ITALO METAB OLIC PANEL globulin 2.2 g/dL 2.6-4. 2 low Not Available [facility] (Lab) [address] [place], [address], 11/27/2023 16:32:25 11/27/19 24 11/27/2023 COMPR EHENS ITALO METAB OLIC PANEL A/G ratio 1.8 ratio 1.0-2. 0 Not Available [facility] (Lab) [address] [place], [address], 11/27/2023 16:32:25 11/27/19 24 11/27/2023 LIPID PANEL cholesterol 112 mg/dL 140-19 9 low NIH BECKI NSUS RECOM MENDA TION FOR MADELEINE STERO L: ADULT CHILD LOW RISK: <200 <170 BORDE RLINE : <200- 239 ----- HIGH RISK: >240 >200 Not Available [facility] (Lab) [address] [place], [address], 11/27/2023 16:32:30 11/27/19 24 11/27/2023 LIPID PANEL triglyceride s 139 mg/dL 0-150 NIH BECKI NSUS REPOR T RECOM MENDA TION FOR TRIGL YCERI HARLEY: ADULT CHILD LOW RISK: <150 ----- BODER LINE: 150-1 99 ----- HIGH RISK: >200 ----- Not Available [facility] (Lab) [address] [place], [address], 11/27/2023 16:32:30 11/27/19 24 11/27/2023 LIPID PANEL HDL cholesterol 36 mg/dL 40- low Not Available [facility] (Lab) [address] [place], [address], 11/27/2023 16:32:30 11/27/19 24 11/27/2023 LIPID PANEL [...] WILL NOT BE REPOR YUSUF. Not Available [facility] (Lab) [address] [place], [address], 11/27/2023 16:32:30 11/27/19 24 11/27/2023 TSH thyroid-stim ulating hormone 0.061 uIU/m L 0.465- 4.680 low Not Available [facility] (Lab) [address] [place], [address], 11/27/2023 16:45:53 12/02/19 24 12/02/2023 VITAM IN B12 (DIAZ DARLYN ) vb12 >1000 pg/mL 239-93 1 high Not Available [facility] (Lab) [address] [place], [address], 12/02/2023 13:21:02 04/06/20 24 04/06/2024 LIPID PANEL , STAND CARLY cholesterol, total 97 mg/dL <200 normal Not Available [address], [address], 04/06/2024 19:58:48 04/06/20 24 04/06/2024 LIPID PANEL , STAND CARLY HDL cholesterol 32 mg/dL > or = 50 low Not Available [address] [place], [address], 04/06/2024 19:58:48 04/06/20 24 04/06/2024 LIPID PANEL , STAND CARLY triglyceride s 82 mg/dL <150 normal Not Available [address], [address], 04/06/2024 19:58:48 04/06/20 24 04/06/2024 LIPID PANEL [...] lated using the Tamanna n-Hop kins calcu latreid n, which is a valid ated novel metho d provi tray burtonte r accur acy than the Fried oscar equat ion in the estim ation of LDL-C . Tamanna n SS et al. NOHEMY. 2013; 310(9 6): 2061- 2068 (http ://ed ucati on.Kiwup Marie [employer]. com/f aq/FA Q164) Not Available [address] [address] [place], [address], 04/06/2024 19:58:48 04/06/20 24 04/06/2024 LIPID PANEL , STAND CARLY chol/HDLC ratio 3.0 (calc ) <5.0 normal Not Available [address], [address], 04/06/2024 19:58:48 04/06/20 24 04/06/2024 LIPID PANEL , STAND CARLY non HDL cholesterol 65 mg/dL _(keyona c) <130 normal For patie nts with diabe cielo plus 1 major ASCVD risk facto r, treat ing to a non-H DL-C goal of <100 mg/dL (LDL- C of <70 mg/dL ) is consi dered a thera pepapo c optio n. Not Available [address], [address], 04/06/2024 19:58:48 04/06/20 24 04/06/2024 COMPR EHENS ITALO METAB OLIC PANEL glucose 96 mg/dL 65-99 normal Fasti ng refer ence inter tim Not Available [address] [address] [place], [address], 04/06/2024 19:58:50 04/06/20 24 04/06/2024 COMPR EHENS ITALO METAB OLIC PANEL urea nitrogen (BUN) 14 mg/dL 7-25 normal Not Available [facility] [address] [address] [place], [address], 04/06/2024 19:58:50 04/06/20 24 04/06/2024 COMPR EHENS ITALO METAB OLIC PANEL creatinine 0.98 mg/dL 0.60-0 .95 high Not Available [address] [address] [place], [address], 04/06/2024 19:58:50 04/06/20 24 04/06/2024 COMPR EHENS ITALO METAB OLIC PANEL eGFR 56 mL/mi n/1.7 3m2 > or = 60 low Not Available [address], [address], 04/06/2024 19:58:50 04/06/20 24 04/06/2024 COMPR EHENS ITALO METAB OLIC PANEL BUN/creatini ne ratio 14 (calc ) 6-22 normal Not Available [address], [address], 04/06/2024 19:58:50 04/06/20 24 04/06/2024 COMPR EHENS ITALO METAB OLIC PANEL sodium 144 mmol/ L 135-14 6 normal Not Available [address], [address], 04/06/2024 19:58:50 04/06/20 24 04/06/2024 COMPR EHENS ITALO METAB OLIC PANEL potassium 4.0 mmol/ L 3.5-5. 3 normal Not Available [address], [address], 04/06/2024 19:58:50 04/06/20 24 04/06/2024 COMPR EHENS ITALO METAB OLIC PANEL chloride 109 mmol/ L 98-110 normal Not Available [address], [address], 04/06/2024 19:58:50 04/06/20 24 04/06/2024 COMPR EHENS ITALO METAB OLIC PANEL carbon dioxide 26 mmol/ L 20-32 normal Not Available [address], [address], 04/06/2024 19:58:50 04/06/20 24 04/06/2024 COMPR EHENS ITALO METAB OLIC PANEL calcium 8.9 mg/dL 8.6-10 .4 normal Not Available [address], [address], 04/06/2024 19:58:50 04/06/20 24 04/06/2024 COMPR EHENS ITALO METAB OLIC PANEL protein, total 5.8 g/dL 6.1-8. 1 low Not Available [address], [address], 04/06/2024 19:58:50 04/06/20 24 04/06/2024 COMPR EHENS ITALO METAB OLIC PANEL albumin 3.8 g/dL 3.6-5. 1 normal Not Available [address], [address], 04/06/2024 19:58:50 04/06/20 24 04/06/2024 COMPR EHENS ITALO METAB OLIC PANEL globulin 2.0 g/dL_ (calc ) 1.9-3. 7 normal Not Available [address], [address], 04/06/2024 19:58:50 04/06/20 24 04/06/2024 COMPR EHENS ITALO METAB OLIC PANEL albumin/glob ulin ratio 1.9 (calc ) 1.0-2. 5 normal Not Available [address], [address], 04/06/2024 19:58:50 04/06/20 24 04/06/2024 COMPR EHENS ITALO METAB OLIC PANEL bilirubin, total 1.4 mg/dL 0.2-1. 2 high Not Available [address], [address], 04/06/2024 19:58:50 04/06/20 24 04/06/2024 COMPR EHENS ITALO METAB OLIC PANEL alkaline phosphatase 88 U/L 37-153 normal Not Available [address] [address] [place], [address], 04/06/2024 19:58:50 04/06/20 24 04/06/2024 COMPR EHENS ITALO METAB OLIC PANEL AST 11 U/L 10-35 normal Not Available [address], [address], 04/06/2024 19:58:50 04/06/20 24 04/06/2024 COMPR EHENS ITALO METAB OLIC PANEL ALT 6 U/L 6-29 normal Not Available [address], [address], 04/06/2024 19:58:50 04/06/20 24 04/06/2024 CBC (INCL UDES DIFF/ PLT) white blood cell count 4.3 thous and/u L 3.8-10 .8 normal Not Available [address], [address], 04/06/2024 19:58:51 04/06/20 24 04/06/2024 CBC (INCL UDES DIFF/ PLT) red blood cell count 3.89 maddie on/uL 3.80-5 .10 normal Not Available [address], [address], 04/06/2024 19:58:51 04/06/20 24 04/06/2024 CBC (INCL UDES DIFF/ PLT) hemoglobin 12.1 g/dL 11.7-1 5.5 normal Not Available [address], [address], 04/06/2024 19:58:51 04/06/20 24 04/06/2024 CBC (INCL UDES DIFF/ PLT) hematocrit 38.6 % 35.0-4 5.0 normal Not Available [address], [address], 04/06/2024 19:58:51 04/06/20 24 04/06/2024 CBC (INCL UDES DIFF/ PLT) MCV 99.2 fL 80.0-1 00.0 normal Not Available [address], [address], 04/06/2024 19:58:51 04/06/20 24 04/06/2024 CBC (INCL UDES DIFF/ PLT) MCH 31.1 pg 27.0-3 3.0 normal Not Available [facility] [address], [address], 04/06/2024 19:58:51 04/06/20 24 04/06/2024 CBC (INCL [...] clini keyona condi tion. Not Available [address], [address], 04/06/2024 19:58:51 04/06/20 24 04/06/2024 CBC (INCL UDES DIFF/ PLT) RDW 12.9 % 11.0-1 5.0 normal Not Available [address], [address], 04/06/2024 19:58:51 04/06/20 24 04/06/2024 CBC (INCL UDES DIFF/ PLT) platelet count 100 thous and/u L 140-40 0 low Not Available [address], [address], 04/06/2024 19:58:51 04/06/20 24 04/06/2024 CBC (INCL UDES DIFF/ PLT) MPV 13.0 fL 7.5-12 .5 high Not Available [address], [address], 04/06/2024 19:58:51 04/06/20 24 04/06/2024 CBC (INCL UDES DIFF/ PLT) absolute neutrophils 2670 cells /uL 1500-7 800 normal Not Available [address], [address], 04/06/2024 19:58:51 04/06/20 24 04/06/2024 CBC (INCL UDES DIFF/ PLT) absolute lymphocytes 920 cells /uL 850-39 00 normal Not Available [address], [address], 04/06/2024 19:58:51 04/06/20 24 04/06/2024 CBC (INCL UDES DIFF/ PLT) absolute monocytes 490 cells /uL 200-95 0 normal Not Available [address], [address], 04/06/2024 19:58:51 04/06/20 24 04/06/2024 CBC (INCL UDES DIFF/ PLT) absolute eosinophils 211 cells /uL 15-500 normal Not Available [address], [address], 04/06/2024 19:58:51 04/06/20 24 04/06/2024 CBC (INCL UDES DIFF/ PLT) absolute basophils 9 cells /uL 0-200 normal Not Available [address], [address], 04/06/2024 19:58:51 04/06/20 24 04/06/2024 CBC (INCL UDES DIFF/ PLT) neutrophils 62.1 % normal Not Available [address], [address], 04/06/2024 19:58:51 04/06/20 24 04/06/2024 CBC (INCL UDES DIFF/ PLT) lymphocytes 21.4 % normal Not Available [address], [address], 04/06/2024 19:58:51 04/06/20 24 04/06/2024 CBC (INCL UDES DIFF/ PLT) monocytes 11.4 % normal Not Available [address], [address], 04/06/2024 19:58:51 04/06/20 24 04/06/2024 CBC (INCL UDES DIFF/ PLT) eosinophils 4.9 % normal Not Available [address], [address], 04/06/2024 19:58:51 04/06/20 24 04/06/2024 CBC (INCL UDES DIFF/ PLT) basophils 0.2 % normal Not Available [facility] [address], [address], 04/06/2024 19:58:51 04/06/20 24 04/06/2024 T4, FREE T4, free 1.3 NG/dL 0.8-1. 8 normal Not Available [address], [address], 04/06/2024 19:58:52 04/06/20 24 04/06/2024 TSH TSH 0.25 mIU/L 0.40-4 .50 low Not Available [address], [address], 04/06/2024 19:58:54 05/19/19 25 05/20/2024 RETIC ULOCY TE COUNT reticulocyte count, automated 1.2 % normal Not Available [address], [id number], 05/20/2024 03:48:07 05/19/1905/20/2024 RETIC ULOCY TE COUNT reticulocyte , absolute [id number] cells /uL [id number] normal Not Available [address], [id number], 05/20/2024 03:48:07 05/19/1905/20/2024 CBC (INCL UDES DIFF/ PLT) white blood cell count 5.1 thous and/u L 3.8-10 .8 normal Not Available [address], [id number], 05/20/2024 03:48:08 05/19/1905/20/2024 CBC (INCL UDES DIFF/ PLT) red blood cell count 4.19 maddie on/uL 3.80-5 .10 normal Not Available [address], [address], 05/20/2024 03:48:08 05/19/1905/20/2024 CBC (INCL UDES DIFF/ PLT) hemoglobin 12.9 g/dL 11.7-1 5.5 normal Not Available [address], [address], 05/20/2024 03:48:08 05/19/1905/20/2024 CBC (INCL UDES DIFF/ PLT) hematocrit 41.9 % 35.0-4 5.0 normal Not Available [address], [address], 05/20/2024 03:48:08 05/19/1905/20/2024 CBC (INCL UDES DIFF/ PLT) MCV 100.0 fL 80.0-1 00.0 normal Not Available [address], [address], 05/20/2024 03:48:08 05/19/1905/20/2024 CBC (INCL UDES DIFF/ PLT) MCH 30.8 pg 27.0-3 3.0 normal Not Available [facility] [address], [address], 05/20/2024 03:48:08 05/19/1905/20/2024 CBC (INCL UDES DIFF/ PLT) MCHC 30.8 g/dL 32.0-3 6.0 low For adult s, a sligh t decre ase in the calcu lated MCHC value (in the range of 30 to 32 g/dL) is most likel y not clini kiana signi fican t; melvinev er, it shoul d be inter prete d with cauti on in corre latio n with other red cell paco eters and the patie nt's clini keyona condi tion. Not Available [address], [address], 05/20/2024 03:48:08 05/19/1905/20/2024 CBC (INCL UDES DIFF/ PLT) RDW 13.0 % 11.0-1 5.0 normal Not Available [address], [address], 05/20/2024 03:48:08 05/19/1905/20/2024 CBC (INCL UDES DIFF/ PLT) platelet count 88 thous and/u L 140-40 0 low Not Available [address], [address], 05/20/2024 03:48:08 05/19/1905/20/2024 CBC (INCL UDES DIFF/ PLT) MPV 13.9 fL 7.5-12 .5 high Not Available [address], [address], 05/20/2024 03:48:08 05/19/1905/20/2024 CBC (INCL UDES DIFF/ PLT) absolute neutrophils 3330 cells /uL 1500-7 800 normal Not Available [facility] [address], [address], 05/20/2024 03:48:08 05/19/1905/20/2024 CBC (INCL UDES DIFF/ PLT) absolute lymphocytes 1122 cells /uL 850-39 00 normal Not Available [facility] [address], [address], 05/20/2024 03:48:08 05/19/1905/20/2024 CBC (INCL UDES DIFF/ PLT) absolute monocytes 459 cells /uL 200-95 0 normal Not Available [facility] [address], [address], 05/20/2024 03:48:08 05/19/1905/20/2024 CBC (INCL UDES DIFF/ PLT) absolute eosinophils 168 cells /uL 15-500 normal Not Available [facility] [address], [address], 05/20/2024 03:48:08 05/19/1905/20/2024 CBC (INCL UDES DIFF/ PLT) absolute basophils 20 cells /uL 0-200 normal Not Available [facility] [address], [address], 05/20/2024 03:48:08 05/19/1905/20/2024 CBC (INCL UDES DIFF/ PLT) neutrophils 65.3 % normal Not Available [facility] [address], [address], 05/20/2024 03:48:08 05/19/1905/20/2024 CBC (INCL UDES DIFF/ PLT) lymphocytes 22.0 % normal Not Available [facility] [address], [address], 05/20/2024 03:48:08 05/19/1905/20/2024 CBC (INCL UDES DIFF/ PLT) monocytes 9.0 % normal Not Available [facility] [address], [place], [address], 05/20/2024 03:48:08 05/19/19 25 05/20/2024 CBC (INCL UDES DIFF/ PLT) eosinophils 3.3 % normal Not Available [address], [address], 05/20/2024 03:48:08 05/19/19 25 05/20/2024 CBC (INCL UDES DIFF/ PLT) basophils 0.4 % normal Not Available [address], [address], 05/20/2024 03:48:08 05/19/19 25 05/20/2024 VITAM IN B12/F OLATE , SERUM PANEL vitamin B12 1685 pg/mL 200-11 00 high Not Available [address], [address], 05/20/2024 03:48:09 05/19/1905/20/2024 VITAM IN B12/F OLATE , SERUM PANEL folate, serum 10.6 NG/mL normal Refer ence Range Low: <3.4 Borde rline : 3.4-5 .4 Clara l: >5.4 Not Available [address], [address], 05/20/2024 03:48:09 12/16/19 24 12/16/2023 XR, pelvi s No observ ation record ed. [email or web address] [facility] [address], [place], [address], 12/19/2023 17:18:52 12/17/19 24 12/17/2023 XR, hip + pelvi s, bilat eral No observ ation record ed. [email or web address] [facility] [address], [place], [address], 12/19/2023 17:19:30 12/20/19 24 12/20/2023 XR, chest , 1 view No observ ation record ed. [address], [place], [address], 12/20/2023 16:53:15 06/26/19 25 06/25/2024 XR, shoul nahomy, 1 view No observ ation record ed. [address], [place], [address], 06/25/2024 16:17:55 06/26/19 25 06/25/2024 CT, chest , w/o contr ast No observ ation record ed. [address], [place], [address], 06/25/2024 16:46:47 07/12/19 25 07/11/2024 US, abdom en No observ ation record ed. [address], [place], [address], 07/11/2024 13:43:41 Result Notes None recorded. Problems Name Problem SNOMED Code Status Onset Date Resolution Date Notes Provider Name and Address Organization Details Recorded Time Hyperchol esterolem ia 45852492 Active Not Available [facility] 3 06:58:07 Anxiety disorder 155941771 Active Not Available [facility] 3 06:58:07 Postablat italo hypothyro idism 849190319 Completed Not Available [facility] 3 06:58:07 Mass of neck 555029186 Active 2021 Not Available [facility] 3 06:58:07 Lymphaden opathy 32213093 Active 2021 Not Available [facility] 3 06:58:07 Migraine 05113200 Active Not Available [facility] 3 06:58:07 Neuropath y 174237912 Active 2019 Not Available [facility] 3 06:58:07 Vertigo 320033882 Active Not Available [facility] 3 06:58:07 Hypothyro idism 36635938 Active Not Available [facility] 3 06:58:07 Congestiv e heart failure 79450876 Active 2020 Not Available [facility] 3 06:58:07 Atrial fibrillat ion 23349933 Active 2021 Not Available [facility] 3 06:58:07 Initial insomnia 62740375 Active 2017 Not Available [facility] 3 06:58:07 Swollen abdomen 73848332 Active Not Available [facility] 3 06:58:07 Abscess of neck 4009225 Active 2021 Not Available [facility] 3 06:58:07 Fatigue 34494863 Active Not Available [facility] 3 06:58:07 Otitis media 13265110 Active 2022 Adarsh Tan MD [address], [place], [address] , [facility] 3 11:46:53 Acute pharyngit is 874780583 Active 2022 Adarsh Tan MD [address], [place], [address] , [facility] 3 11:05:13 Vitamin D deficienc y 47208741 Active 2022 Adarsh Tan MD [address], [place], [address] , [facility] 3 11:06:38 Anemia 846552592 Active 2022 Tammie Pope null, [place] [facility] 3 16:14:43 Cough 35524962 Active 2023 Adarsh Tan MD [address], [place], [address] , [facility] 4 10:30:41 Hypokalem ia 43212369 Active 2023 Barbara Littlejohn CMA null, [place] [facility] 4 11:07:29 Overactiv e urinary bladder 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 Active 2023 NENA Delgado, [place] [facility] 4 11:05:16 Acute sinusitis 18965758 Active 2023 Adarsh Tan MD [address], [place], [address] , [place] [facility] 4 15:13:51 Thrombocy topenic disorder 639848532 Active 2023 Adarsh Tan MD [address], [place], [address] , [place] [facility] 4 12:51:10 Dementia 49101396 Active 2023 NENA Delgado, [place] [facility] 4 16:50:41 Acute bronchiti s 60083848 Active 2024 Adarsh Tan MD [address], [place], [address] , [place] [facility] 5 11:21:23 Essential thrombocy themia 802218732 Active 2024 Barbara Littlejohn CMA null, [place] [facility] 5 12:56:04 Hemorrhoi ds 59320962 Active 2024 Barbara Littlejohn CMA null, [place] [facility] 5 11:02:06 Essential hypertens ion 36995408 Active 2024 Adarsh Tan MD [address], [place], [address] , [place] [facility] 5 12:05:48 Pain of right shoulder region Active 2024 Barbara Littlejohn CMA null, [place] [facility] 5 11:36:43 Injury of right shoulder 51541540293 760756 Active 2024 Barbara Littlejohn CMA null, [place] [facility] 5 11:40:21 Pain of hip region 07823250 Active 2024 Asya Smiley null, [place] [facility] 5 17:22:09 Pain of right hip joint 41199574962 9102 Active 2024 Asya zendejas, [facility] 5 17:24:44 Problem Notes None recorded. Procedures Surgical History Date Name Laterality Status Provider Name and Address Organization Details Recorded Time 4 Medicare Wellness CPT Code, subsequent completed Junie Lee RN [facility] 01/15/2024 11:05:43 4 Nail Debridement completed Javier Yoder DPM [address], [place], [address], [facility] 11/04/2023 15:12:59 4 Debridement of Callus or [place] completed Javier Yoder DPM [address], [place], [address], [employer] [facility] 11/04/2023 15:13:22 3 Medicare Wellness CPT Code, subsequent completed Junie Lee RN [facility] 12/05/2022 10:51:58 Imaging Results None recorded. Procedure Notes None recorded. Medical Equipment None Reported. Allergies Allergen ID Allergen Name Allergen Category Reaction Reaction Severity Criticality Documentation Date Start Date Code Code System Note Provider Name and Address Organization Details Recorded Time 01495 Tamiflu medicatio n rash Not available Not available 06/20/2022 90002 7 RxNorm Not Available [facility] 3 07:01:37 84299 Robitussi n medicatio n other Not available Not available 06/20/2022 97657 2 RxNorm facia l swell ing Not Available [facility] 3 07:01:37 Medications Name Sig Start Date [...] No t Available donepezil 5 mg tablet TAKE 1 TABLET BY MOUTH EVERY DAY active Not Available Not Available No t Available trazodone 50 mg tablet Take 1 tablet every day by oral route at bedtime. 08/06 completed Not Available Not Available Not Available oxybutynin chloride ER 10 mg tablet,exte nded release 24 hr TAKE ONE TABLET BY MOUTH ONCE DAILY active Not Available Not Available No t Available ofloxacin 0.3 % eye drops 12/21 completed Not Available Not Available Not Available benzonatate 200 mg capsule Take 1 capsule 3 times a day by oral route. 08/06 completed Not Available Not Available Not Available Ditropan XL 5 mg tablet,exte nded release once daily 04/01 completed Not Available Not Available Not Available hydrocodone 5 mg-acetamin ophen 325 mg tablet TAKE 1 TABLET BY MOUTH EVERY 4-8 HOURS NEEDED FOR PAIN (SCALE SCORE 6-10) 08/06 completed Not Available Not Available Not Available Synthroid 100 mcg tablet Take 1 [...] ORAL ROUTE ONCE DAILY FOR 4 DAYS 08/06 completed Not Available Not Available Not Available cyanocobala min (vit B-12) 1,000 mcg tablet Take 1 tablet every day by oral route. 2017 active Not Available Not Available Not Avai lable Klor-Con 20 mEq oral packet 08/06 completed Not Available Not Available Not Available aspirin [...] completed Not Available Not Available Not Available hydrocortis one 2.5 % topical cream with perineal applicator APPLY SPARINGLY TO AFFECTED AREA 2 TO 4 TIMES A DAY active Not Available Not Available No t Available prednisolon e acetate 1 % eye drops,suspe nsion 08/23 completed Not Available Not Available Not Available trazodone 100 mg tablet One HS for sleep 05/22 completed Not Available Not Available Not Available meclizine 25 mg tablet take one tablet twice a day 2024 active Not Available Not Available Not Avai lable amlodipine 10 mg tablet TAKE 1 TABLET BY MOUTH EVERY DAY active Not Available Not Available No t Available cephalexin 500 mg capsule Take 1 capsule every 6 hours by oral route. active Not Available Not Available No t Available pantoprazol e 40 mg tablet,fransisca yed release TAKE 1 TABLET BY MOUTH TWICE A DAY FOR 14 DAYS active Not Available Not Available No t [...] TABLETS BY MOUTH EVERY DAY EVERY MORNING 08/06 completed Not Available Not Available Not Available lorazepam 1 mg tablet one three times a day 05/22 completed Not Available Not Available Not Available Tylenol-Cod eine #3 300 mg-30 mg tablet one every six hours as needed 07/04 completed Not Available Not Available Not Available ferrous sulfate 325 mg (65 mg iron) tablet,fransisca yed release Take 1 tablet twice a day by oral route. active Not Available Not Available No t Available oxybutynin chloride 5 mg tablet TAKE 1 TABLET BY MOUTH TWICE DAILY 2024 active Not Available Not Available Not Avai lable Vitamin D3 25 mcg (1,000 unit) tablet [...] and Address Organization Details Last Updated DateTime 5 158.75 cm 20.9 kg/m2 04435.7 1 g 80 /min 97 [degF] 98 % 98 % 120 mm[Hg] 64 mm[Hg] Tammie Pope [facility] 5 12:01:40 Date Recorded Body height Body mass index (BMI) Body weight Oxygen saturation Oxygen saturation in Arterial blood by Pulse oximetry Body temperature Provider Name and Address Organization Details Last Updated DateTime 4 158.75 cm 23 kg/m2 98832.8 2 g 95 % 95 % 98.1 [degF] Benoit Ng [facility] 4 11:21:55 Date Recorded Body height Body mass index (BMI) Body weight Heart rate Body temperature Oxygen saturation Oxygen saturation in Arterial blood by Pulse oximetry Systolic blood pressure Diastolic blood pressure Provider Name and Address Organization Details Last Updated DateTime 4 158.75 cm 22.1 kg/m2 52622.8 6 g 72 /min 97.5 [degF] 98 % 98 % 124 mm[Hg] 84 mm[Hg] rAlin Vicente Jacqueline [facility] 4 11:23:31 Date Recorded Body height Body weight Heart rate Body temperature Oxygen saturation Oxygen saturation in Arterial blood by Pulse oximetry Systolic blood pressure Diastolic blood pressure Provider Name and Address Organization Details Last Updated DateTime 4 158.75 cm 53309.0 5 g 83 /min 97 [degF] 96 % 96 % 120 mm[Hg] 84 mm[Hg] ASHLEY Tolbert [employer] 4 10:58:05 Date Recorded Body height Body mass index (BMI) Body weight Heart rate Body temperature Oxygen saturation Oxygen saturation in Arterial blood by Pulse oximetry Systolic blood pressure Diastolic blood pressure Provider Name and Address Organization Details Last Updated DateTime 4 158.75 cm 20 kg/m2 18799.7 5 g 97 /min 97 [degF] 95 % 95 % 140 mm[Hg] 90 mm[Hg] ASHLEY Tolbert [facility] 4 11:36:38 Social History Question Answer Notes LastModified by Organization Details LastModified Time Tobacco Smoking Status Never Smoker Not Available [facility] 06/20/2022 06:55:12 Do You Have An Advance Directive? Yes [email or web address] Information not available 12/05/2022 Are You Blind Or Do You Have Difficulty Seeing? No MIGRATION.030 [id number] Information not available 06/20/2022 In The 14 Days Before Symptom Onset, Have You Had Close Contact With A Laboratory-confi rmed COVID-19 While That Case Was Ill? No MIGRATION.030 [id number] Information not available 06/20/2022 In The 14 Days Before Symptom Onset, Have You Had Close Contact With A Person Who Is Under Investigation For COVID-19 While That Person Was Ill? No MIGRATION.030 [id number] Information not available 06/20/2022 Are You Deaf Or Do You Have Serious Difficulty Hearing? Yes [email or web address] Information not available 12/05/2022 What Type Of Diet Are You Following? REGULAR MIGRATION.030 [id number] Information not available 06/20/2022 Have There Been Any Changes To Your Family Or Social Situation? No MIGRATION.030 065314 Information not available 06/20/2022 What Is The Fluoride Status Of Your Home? Unknown MIGRATION.030 057646 Information not available 06/20/2022 Are There Any Guns Present In Your Home? No MIGRATION.030 121508 Information not available 06/20/2022 Do You Use Insect Repellent Routinely? No MIGRATION.030 [id number] Information not available 06/20/2022 Where Do You Live? [place]House MIGRATION.0301 [id number] Information not available 06/20/2022 Guns Present In The Home? No [email or web address] Information not available 12/05/2022 Are You Able To Care For Yourself? Yes [email or web address] Information not available 12/05/2022 Are You Blind Or Do Yo Have Difficulty Seeing? No [email or web address] Information not available 12/05/2022 Are You Deaf Or Do You Have Serious Difficulty Hearing? Yes [email or web address] Information not available 12/05/2022 Live Alone Of With Others? With Others [email or web address] Information not available 12/05/2022 Do You Have A Medical Power Of Transfer Engineer? Yes [email or web address] Information not available 12/05/2022 What Was The Date Of Your Most Recent Tobacco Screening? 01/15/2024 [email or web address] Information not available 01/15/2024 Do You Have Any Pets? No [email or web address] Information not available 12/05/2022 What Is Your Relationship Status? [email or web address] Information not available 12/05/2022 Do You Use Your Seat Belt Or Car Seat Routinely? Yes [email or web address] Information not available 12/05/2022 Do You Have Smoke And Carbon Monoxide Detectors In Your Home? Yes MIGRATION.0301 [id number] Information not available 06/20/2022 Are You Passively Exposed To Smoke? No MIGRATION.0301 [id number] Information not available 06/20/2022 Are There Any Smokers In Your House? No [email or web address] Information not available 12/05/2022 Do You Use Sunscreen Routinely? No MIGRATION.0301 [id number] Information not available 06/20/2022 Have You Recently Traveled Abroad? No MIGRATION.0301 [id number] Information not available 06/20/2022 Do You Have Difficulty Walking Or Climbing Stairs? Yes Recent Hip Surgery [email or web address] Information not available 01/15/2024 Do You Have Any Dietary Restrictions? No MIGRATION.0301 [id number] Information not available 06/20/2022 Sex: Unknown Functional Status Question Answer Note LastModified by Organizat ion Details LastModified Time Do you or have you ever used any other forms of tobacco or nicotine? No MIGRATION.[id number] 026 Information not available 06/20/2022 What is your level of alcohol consumption? None [email or web address] Information not available 01/15/2024 Do you have transportation difficulties? No MIGRATION.2122979 026 Information not available 06/20/2022 Are you able to walk? YESASSIST [email or web address] Information not available 01/15/2024 Do you have difficulty doing errands alone? Yes MIGRATION.[id number] 026 Information not available 06/20/2022 Are you able to care for yourself? Yes MIGRATION.4086614 026 Information not available 06/20/2022 Do you have difficulty dressing or bathing? No MIGRATION.2400596 026 Information not available 06/20/2022 What is your exercise level? None MIGRATION.2180474 026 Information not available 06/20/2022 Mental Status Question Answer Note LastModified by Organizat ion Details LastModified Time Do you have difficulty concentrating, remembering or making decisions? No MIGRATION.[id number] 6 Information not available 06/20/2022 Family History [...] HAVE YOU BEEN HOSPITALIZED OR SEEN IN [facility] IN THE PAST YEAR ? N ATHEROSCLEROSIS [...] virus, trivalent, preservative 5 completed Not Available [facility] 06/20/2022 07:01:28 Influenza, split virus, quadrivalent, preservative 2 completed Not Available [facility] 06/20/2022 07:01:28 SARS-COV-2 (COVID-19) vaccine, UNSPECIFIED 1 completed Not Available [facility] 06/20/2022 07:01:28 Influenza, split virus, quadrivalent, preservative 1 completed Not Available [facility] 06/20/2022 07:01:28 COVID-19 Non-US Vaccine, Product Unknown 1 completed Not Available [facility] 06/20/2022 07:01:28 COVID-19 Non-US Vaccine, Product Unknown 1 completed Not Available [facility] 06/20/2022 07:01:28 Influenza, split virus, trivalent, preservative 8 completed Not Available [facility] 06/20/2022 07:01:28 pneumococcal polysaccharide PPV23 9 completed Not Available [facility] 06/20/2022 07:01:29 Pneumococcal conjugate PCV 13 5 completed Not Available [facility] 06/20/2022 07:01:29 Influenza, high-dose, trivalent, PF 4 completed ASHLEY Tolbert, [facility] 04/01/2024 14:34:20 Pneumococcal conjugate PCV20, polysaccharide DHU615 conjugate, adjuvant, PF 4 completed ASHLEY Tolbert, [facility] 04/01/2024 14:34:20 Past Encounters Encounter ID Performer Location Encounter Start Date Encounter Closed Date Diagnosis/Indication Diagnosis SNOMED-CT Code Diagnosis ICD10 Code Diagnosis Note [id number] Adarsh Tan MD S_[facility] Internal Med [facility] [address] [address] 11/09/2020 00:00:00 11/09/2020 12:23:09 [id number] Adarsh Tan MD S_[facility] Internal Med [facility] [address] [address] 12/21/2020 00:00:00 12/21/2020 11:57:58 [id number] Adarsh Tan MD S_[facility] Internal Med [facility] [address] [address] 04/26/2021 00:00:00 04/26/2021 11:58:37 [id number] Adarsh Tan MD S_[facility] Internal Med [facility] [address] [address] 08/23/2021 00:00:00 08/23/2021 11:31:25 [id number] Adarsh Tan MD S_[facility] Internal Med [facility] [address] [address] 12/27/2021 00:00:00 12/27/2021 11:11:12 [id number] Adarsh Tan MD S_[facility] Internal Med [facility] [address] [address] 01/29/2022 00:00:00 01/29/2022 11:30:54 [id number] Shalom rodriguez MD S_G General Surgery [address] [facility] [address] 04/05/2022 00:00:00 04/05/2022 13:57:58 [id number] Adarsh Tan MD S_[facility] [address] [facility] y [address] [place] [address] 04/06/2022 00:00:00 04/06/2022 15:08:13 [id number] Adarsh Tan MD S_[facility] [address] [facility] y Dr. [place] [address] 08/07/2022 14:52:21 08/07/2022 15:50:03 Congestive heart failure 71244407 I50.9 Hypercholesterolemia 136 07292 E78.00 Atrial fibrillation 4943 6004 I48.91 Hypothyroidism 53472126 E03.9 [id number] Adarsh Tan MD [facility] Internal Med [facility] [address] [address] 12/05/2022 10:36:07 12/05/2022 11:12:32 Adult health examination 714463644 Z00.00 Screening for disorder 843530411 Z13.9 Congestive heart failure 79785547 I50.9 Atrial fibrillation 4943 6004 I48.91 Hypothyroidism 05398536 E03.9 Hypercholesterolemia 136 42204 E78.00 Vitamin D deficiency 347 00994 E55.9 [id number] Adarsh Tan MD [facility] Internal Med [facility] [address] [address] 03/27/2023 11:55:06 03/27/2023 12:41:40 Atrial fibrillation 54426216 I48.91 Congestive heart failure 75013686 I50.9 Hypercholesterolemia 136 52847 E78.00 Hypothyroidism 24299766 E03.9 [id number] Adarsh Tan MD [facility] Internal Med [facility] [address] [address] 07/24/2023 10:47:23 07/24/2023 11:57:19 Hypercholesterolemia 89184555 E78.00 Hypothyroidism 53917799 E03.9 Atrial fibrillation 4943 6004 I48.91 [id number] Adarsh Tan MD S_[facility] Internal Med [facility] [address] [address] 08/15/2023 10:52:05 08/15/2023 11:10:37 Hypokalemia 74391399 E87.6 [id number] Javier Yoder DPM [facility] Podiatry [facility] [address] [address] 11/04/2023 10:48:49 11/04/2023 16:25:29 [id number] Adarsh Tan MD S_[facility] Internal Med [facility] [address] [address] 11/27/2023 11:03:52 11/27/2023 11:44:22 Congestive heart failure 22302294 I50.9 Atrial fibrillation 4943 6004 I48.91 Hypothyroidism 23383426 E03.9 Neuropathy 608993877 G62 .9 Hypercholesterolemia 136 69065 E78.00 [id number] Adarsh Tan MD [facility] Internal Med [facility] [address] [address] 01/15/2024 10:39:09 01/15/2024 11:33:49 Adult health examination [id number] Z00.00 Screening for disorder 310226298 Z13.9 Atrial fibrillation 4943 6004 I48.91 Hypercholesterolemia 136 57199 E78.00 Hypothyroidism 26437048 E03.9 [id number] Adarsh Tan MD [facility] Internal Med [facility] [address] [address] 04/01/2024 11:00:38 04/01/2024 12:04:29 Atrial fibrillation [id number] I48.91 Hypercholesterolemia 136 09955 E78.00 Hypothyroidism 29488040 E03.9 [id number] Adarsh Tan MD S_[facility] Primary [facility] [address] [facility] [address] [place] [address] 08/06/2024 11:44:15 08/06/2024 12:20:25 Essential hypertension 51590274 I10 Atrial fibrillation 4943 6004 I48.91 Hypercholesterolemia 136 58643 E78.00 Hypothyroidism 59650678 E03.9 Dementia 46883229 F03.90 Health Concerns Section Related Observation LastModified by Organization Detai ls LastModified Time None Recorded Concern Status LastModified by Organization Details LastModified Time None Recorded Advance Directives Directive Y: Payers Encounter Date Sequence Insurance Name Policy Number Policy Donahue Covered Member ID Donahue Member ID Guarantor Name 11/04/2023 1 [facility] (MEDICARE REPLACEMENT/A DVANTAGE - HMO) [id number] Renata Gentile Brown [id number] Renata Brown 11/27/2023 1 [facility] (MEDICARE REPLACEMENT/A DVANTAGE - HMO) [id number] Eathel F Brown [id number] Eathel Brown 01/15/2024 1 [facility] (MEDICARE REPLACEMENT/A DVANTAGE - HMO) [id number] Eathel F Brown [id number] Eathel Brown 04/01/2024 1 [facility] (MEDICARE REPLACEMENT/A DVANTAGE - HMO) [id number] Eatlos F Brown [id number] Eathel Brown 08/06/2024 1 [facility] (MEDICARE REPLACEMENT/A DVANTAGE - HMO) [id number] Eathel F Brown [id number] [facility] Brown Notes Date Note Type Note Provider Name and Address Organization Details Recorded Time 4 text/html Pt RTC for routine nail care, incurvated nails both feet. 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 Echocardiogram from 08/02/2022 [...] medications: Eliquis. Rate control: rapid ventricular response [id number] Criteria: congestive heart failure, Age > 75 [...] Reactions ReviewedRobitussin Facial SwellingTamiflu Rash Vaccination and Phcftbbuiywv9444-06 Xvhrnkclx1842-00 Covid Ojjxkm8341-88 Covid Booster Fbvdzl1892-14 Tetanus Tgboarp0726-98 Bqvotxwx0595-55 Ezlgpivgk4890-61 Prevnar 13 [facility] Xctwnij4618-68 Tfbrfxtgkihopyn2040-22 Vaginal Hysterectomy Preventative Testing( ) 07/24/2023 Albumin [...] Reactions ReviewedRobitussin Facial SwellingTamiflu Rash Vaccination and Alygygpxofvl1618-65 Fskxrmbwe9399-26 Covid Wugvhw4646-49 Covid Booster Sytukt4433-73 Tetanus Mgcmbmx9704-54 Stsmnwst4444-09 Czkdjjrze6553-12 Prevnar 13 [facility] Zwtdwpn6181-68 Xrwdekhxsapuskm3858-01 Vaginal Hysterectomy Preventative Testing( ) 07/24/2023 Albumin [...] 43 0-130 MG/DL Adarsh Tan MD [address] [facility], [facility] [address], [place], [address], [place] [facility] 11/27/2023 11:42:21 4 text/html Patient Name: Liliane [...] 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 Echocardiogram from 08/02/2022 [...] Succinate Er. Rate control: controlled ventricular response [id number] Criteria: Age > 75 and and considered [...] Reactions ReviewedRobitussin Facial SwellingTamiflu Rash Vaccination and Ombkmoxdbvko4494-76 Mscxgugri8988-79 Covid Vxmuqk1669-00 Covid Booster Wlhyeb6753-53 Tetanus Fogvaoc7302-42 Xfrlkmng2826-21 Zzowytcnk9024-94 Prevnar 13 [facility] Wnuhfjs4027-17 Lt. Femur Open Reduction Lnfaiwzf5602-40 Knunatbgruszxrs0549-57 Vaginal Hysterectomy Preventative Testing( ) 11/27/2023 Albumin 3.9 G/DL( ) 01/25/2014 Colonoscopy (10 Years) 01/26/2024( ) 12/10/2013 Mammogram 12/11/2015( ) 09/20/2004 HAIC 5.9 % Social HistoryDoes not smokeDoes not drinkDoes office work Family HistoryMother 61 from hypertension and CVAFather in late 20's from TBOne brother living ASHD and CABGTwo sisters both both hx of CVA(2) dAarsh Tan MD [address] [facility], [facility] [address], [place], [address], [facility] 01/15/2024 11:30:45 4 text/html Patient Name: Liliane [...] 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 Echocardiogram from 08/02/2022 [...] specific medication. Rate control: controlled ventricular response [id number] Criteria: hypertension, Age > 75 and and [...] COVID PFIZER(X) 2021-02 COVID BOOSTER PFIZER Surgical Bqyxbxl6012-70 Lt. Femur Open Reduction Wdzgsfkk9547-25 Rhnovypwrvadbds1774-15 Vaginal Hysterectomy Preventative Testing( ) 11/27/2023 Albumin [...] >1000 239-931 PG/ML Adarsh Tan MD [address] [facility], [address], [place], [address], [place] [facility] 04/01/2024 11:59:12 5 text/html Patient Name: Liliane Gramajo (eathel)nettDate Of Service: July ( 08.06.2024 ): 1935 Age: 89 There has been approximately a 5 lb weight gain since 04/01/2024. This represents approximately a 4.5% change in weight. Weight change attributable to lifestyle changes. Vital Signs:Blood Pressure: Sitting Rt. Arm 120/64Pulse: Sitting 80 /min and RegularRespiratory Rate: 16Height 62.5 in or 1.6 mWeight 116 lb or 52.6 kgBMI 20.9Temperature: 97 F or 36.1 CPulse Oximetry: 98 % at rest on no oxygen Chief Complaint: Addressed in HPI Problems or conditions discussed in the HPI were the only ones reviewed during the encounter.Only social and family history addressed in the HPI were reviewed during this encounter. Attendant(s): DaughterConstitutional and Systemic Symptoms:none Medication Reconciliation: from medication list. Npmiwewevzn34/15/2023: CT of the brain without contrast. 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 No fracture or other signs of any acute trauma. 06-25-2024: CT of chest mild displaced acute posterolateral fracture of the right 5th rib and likely a acute T4 burst fracture with 40% vertical height loss. 2-3 mm retropulsion. 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 Mild bilateral renal cortical thinning noted no other significant abnormality 07-14-2024: Upper endoscopy showed acute gastritis with gastric ulcer bleeding. Injected with epinephrine And cauterized. History of Present Illness #1. Essential Hypertension: Stage: Stage I Interval Neurological Complaints weakness. No shortness of breath, orthopnea or cardiovascular symptoms. No other symptoms related to end organ damage. Pressure has been under excellent control. Currently normal. No other end organ symptoms or findings. Therapy reviewed regarding management of hypertension and includes salt restriction and Furosemide and Metoprolol Succinate Er and stopping the amlodipine.. #2. Atrial Fibrillation: Type: Persistent with recurrent episodes lasting longer than 7 days. Further classification: Non-valvular. Associated history of HTN. No attending hx of any shortness of breath, palpitations, syncopal or neurological symptoms. Current medications: Metoprolol Succinate Er. Rate control: controlled ventricular response [id number] Criteria: hypertension, Age > 75 and and considered moderate risk for embolic phenomenon. Anticoagulation: Eliquis #3. Type II Hypercholesterolaemia: Currently taking medication and tolerating well. No interval complaints of any muscle pain or arthralgia. No significant liver changes with medications. Last lipid panel: fair control. Therapy reviewed regarding treatment of cholesterol management and include diet and Simvastatin. #4. Hx of hypothyroidism currently stable. Heat intolerance: no Fatigue: no Weight gain: no Difficulty concentrating: no Muscle Symptoms: none Skin Texture: normal Skin Color: unchanged Currently taking synthroid. #5. Hx of dementia. Currently stable. There has been no clinical change in cognitive functions. Performance of activities of daily living has remained unchanged. Currently taking Aricept Mini-Cog Score: Mild Cognitive Impairment Active Medication ListEliquis 2.5 MG (TABLET - [...] Facial SwellingTamiflu Rash Vaccination and Immunization( ) 2023- INFLUENZA( ) 2014- PREVNAR 13 GC( ) 2018-10 PNEUMOVAX( ) 2018-10 SHINGRIX( ) 2018-10 TETANUS BOOSTER( ) 2023- PREVNAR 20( ) 2021-02 COVID PFIZER(X) 2021-02 COVID BOOSTER PFIZER Surgical Hefkpyt4046-43 Lt. Femur Open Reduction Ywirjpax6017-04 Moqhbxalcemawwp8923-04 Vaginal Hysterectomy Preventative Testing( ) 07/14/2024 Upper Endoscopy 07/15/2063( ) 04/06/2024 Albumin 3.8 G/DL N( ) 01/25/2014 Colonoscopy (10 Years) 01/26/2024( ) 12/10/2013 Mammogram( ) 09/20/2004 HAIC 5.9 % Social HistoryDoes not smokeDoes not drinkDoes office work Family HistoryMother 61 from hypertension and CVAFather in late 20's from TBOne brother living ASHD and CABGTwo sisters both both hx of CVA(2) Adarsh Tan MD [address] [facility], [facility] [address], [place], [address], [place] [facility] [place] [facility] [employer] 08/06/2024 12:12:51 OBGyn Episode No OBEpisode recorded.
== END 2024-09-23 16:40 | disposition home or self-care (01) ==
PROVIDERS: PCP Internal Medicine; Visit Provider Internal Medicine
DX: M16.11 Unilateral primary osteoarthritis, right hip (principal); S49.91XA Unspecified injury of right shoulder and upper arm, initial encounter; X58.XXXA Exposure to other specified factors, initial encounter
CPT/HCPCS: 73030; 73502